=== PATIENT | male | born 1945 | race Caucasian/White ===

== ENCOUNTER 2019-10-28 14:08 | Inpatient (IN) | payer MEDICARE, SELFPAY ==
[2019-10-28] VITALS (26 sets, daily range): BP systolic 41–121; BP diastolic 22–76; PULSE 59–99; RESP 14–24; TEMP 33.3–36.4; O2SAT 91–100; BMI 27.9
--- NOTE | ~2019-10-28 | CT_ITS ---
EXAMINATION: CT brain wo con DATE: 10/29/2019 03:27 INDICATION: Altered mental status TECHNIQUE: Computed tomography (CT) of the head was performed without intravenous contrast. The dose- length product was 681.00 mGy-cm. The mA was adjusted according to patient size. Iterative reconstruc tion technique was employed. COMPARISON: None FINDINGS: There are scattered moderate periventricular and subcortical white matter changes, most lik kaveh related to small vessel ischemic disease (microangiopathy). Generalized atrophy. Intracranial ath erosclerosis. No acute intracranial hemorrhage, infarction, mass or mass effect. No ventriculomegaly or midline shift. Basilar cisterns are patent. Mild mucosal thickening of the ethmoid sinuses. Mastoi ds are pneumatized. No depressed skull fractures. IMPRESSION: 1. No acute intracranial abnormality. Reviewed, dictated and finalized at location B.
--- NOTE | ~2019-10-28 | XR_ITS ---
EXAMINATION: XR chest 1V portable DATE: 10/29/2019 06:05 INDICATION: Respiratory failure TECHNIQUE: frontal view of the chest was obtained. COMPARISON: Chest radiograph dated 10/28/[address] dated 10/29/2019 FINDINGS: Endotracheal tube tip 4.6 cm above the melani. Nasogastric tube extends below the left hemidiaphragm with distal tip collimated off the study. Right internal jugular central venous catheter with distal tip near the superior cavoatrial junction. Opacities in the bilateral mid and lower lung zones including small pleural effusions loculated along the left major fissure. There is also a small left pleural effusion. No pneumothorax. Cardiomegaly. Median sternotomy wires and mediastinal surgical clips are seen, likely from prior coronary artery by pass grafting. Suggestion of cardiac valve repair is likely aortic and tricuspid. Retained epicardial pacemaker leads projecting over the left hemidiaphragm. IMPRESSION: 1. No significant interval change in opacities in the lower lung zones consistent with atelectasis an d/or pneumonia. 2. Small bilateral pleural effusions including loculated component along the right minor fissure. 3. Cardiomegaly. Reviewed, dictated and finalized at location A. IMPRESSION: 1. No significant interval change in opacities in the lower lung zones consiste nt with atelectasis and/or pneumonia. 2. Small bilateral pleural effusions including loculated component along the ri ght minor fissure. 3. Cardiomegaly.
--- NOTE | ~2019-10-28 | XR_ITS ---
XR chest 1V portable DATE: 10/28/2019 14:58 INDICATION: Altered mental state. Cerebrovascular accident symptoms. TECHNIQUE: Portable AP chest views on 10/28/2019 at 1454 hours COMPARISON: None FINDINGS: Status post sternotomy and cardiac valve replacement. There is a globular enlarged cardiac silhouette which may be secondary to cardiomyopathy/cardiomegaly. Pericardial effusion is not entirel y excluded. There is aortic arch calcification. There is pulmonary vascular congestion and redistribution. There is a biconvex opacity overlying the right mid lung which may represent pseudotumor from fluid in the minor fissure versus some atelectasi s or consolidation. Pulmonary mass lesion at this site is not likely. There are mild infiltrate centr ally and in the lower lung zones, greatest in the right lower lung. Diffuse osteopenia. IMPRESSION: Cardiomegaly, pulmonary vascular congestion, right pleural fluid consistent with congesti ve heart failure Bilateral infiltrates may be due to to pulmonary edema, pneumonia and/or aspiration Reviewed, dictated and finalized at location A. IMPRESSION: Cardiomegaly, pulmonary vascular congestion, right pleural fluid co nsistent with congestive heart failure Bilateral infiltrates may be due to to pulmonary edema, pneumonia and/or aspira tion
--- NOTE | ~2019-10-28 | CT_ITS ---
EXAMINATION: CT chest wo con DATE: 10/29/2019 03:27 INDICATION: Respiratory failure TECHNIQUE: Computed tomography (CT) of the chest was performed without intravenous contrast. The dose -length product was 629.93 mGy-cm. Automated exposure control and iterative reconstruction technique were employed. COMPARISON: Chest dated 10/28/2019 FINDINGS: Bilateral lower lobe airspace consolidation with air bronchograms. Small pleural effusions. Moderate cardiomegaly. Endotracheal tube present. Status post median sternotomy for CABG. There is a scending thoracic aortic aneurysm measuring 5.3 cm at the aortic root. There is dehiscence of the larisa rnum with associated soft tissue thickening, likely postoperative, although infection is not excluded . Mediastinal lymphadenopathy, nonspecific. Enlarged pulmonary arteries, consistent with pulmonary ar terial hypertension. Nodular liver surface, compatible with cirrhosis. No pneumothorax. NG tube in th e stomach. Right central venous catheter tip in the SVC. Fluid density anterior abdominal wall incomp letely visualized, image 127. IMPRESSION: 1. Bilateral lower lobe airspace consolidation which may represent pneumonia and/or atelectasis. 2: Small pleural effusions. 3: Moderate cardiomegaly. 4: Mediastinal and hilar lymphadenopathy, nonspecific. 5: Nodular liver surface, consistent with cirrhosis. Small amount of ascites. 6: Ascending thoracic aortic aneurysm. Reviewed, dictated and finalized at location B. IMPRESSION: 1. Bilateral lower lobe airspace consolidation which may represent pneumonia an d/or atelectasis. 2: Small pleural effusions. 3: Moderate cardiomegaly. 4: Mediastinal and hilar lymphadenopathy, nonspecific. 5: Nodular liver surface, consistent with cirrhosis. Small amount of ascites. 6: Ascending thoracic aortic aneurysm.
--- NOTE | ~2019-10-28 | XR_ITS ---
EXAMINATION: XR chest port-a-cath/central DATE: 10/28/2019 16:30 INDICATION: Central line placement. TECHNIQUE: A single frontal view of the chest was obtained. COMPARISON: Chest single view 10/28/2019 at 2:50 PM FINDINGS: The lateral costophrenic angles are excluded. There are airspace opacities in right midlung zone. No pneumothorax. Cardiomegaly is noted. There are changes of heart valve replacement. A right internal jugular central venous catheter is seen with tip at the superior cavoatrial junction. IMPRESSION: 1. Central line tip at superior cavoatrial junction. 2. Stable airspace opacities in right midlung zone, which may be pneumonia, atelectasis/scarring, or pleural effusion in the minor fissure. 3. Cardiomegaly. Reviewed, dictated and finalized at location A. IMPRESSION: 1. Central line tip at superior cavoatrial junction. 2. Stable airspace opacities in right midlung zone, which may be pneumonia, ate lectasis/scarring, or pleural effusion in the minor fissure. 3. Cardiomegaly.
--- NOTE | 2019-10-28 14:14 | ECG_ITS ---
Measurements Intervals [place] Rate: 47 P: MO: 0 QRS: -42 QRSD: 150 T: 93 QT: 531 QTc: 473 Interpretive Statements ATRIAL FIBRILLATION WITH SLOW VENTRICULAR RESPONSE LEFT AXIS DEVIATION LEFT BUNDLE BRANCH BLOCK BASELINE ARTIFACT- II, III, AVR, AVL, AVF, V1, V5 ABNORMAL ECG Electronically Signed On 10-28-2019 15:01:10 CDT by Cheko Kaminski D.O.
--- NOTE | 2019-10-28 14:16 | ED.NEUROSD ---
HPI - Neuro Symptoms/Deficit General Chief Complaint: Suspected CVA Stated Complaint: cva symptoms Time Seen by Provider: 10/28/19 14:14 History of Present Illness HPI Narrative: BIBEMS from home for suspected stroke. He was reportedly c/o pain throughout his entire body this morning. then decided to lie down on the ground and would not get up. EMS was called. When they arrived he was noted to be confused and hypotensive. His reports recent h/o pneumonia, Previous gi bleed suspected to be upper. She is not aware of him having any dark or grossly blood stools. Related Data Home Medications Medication Instructions Recorded Confirmed Lorcet (hydrocodone) cap/day PO Q2-6H PRN 10/28/19 allopurinol 300 mg PO DAILY 10/28/19 carvedilol 25 mg PO BID 10/28/19 furosemide [Lasix] 180 mg PO DAILY 10/28/19 glimepiride 1 mg PO DAILY 10/28/19 hydralazine 50 mg PO TID 10/28/19 isosorbide mononitrate 30 mg PO DAILY 10/28/19 tamsulosin 0.4 mg PO DAILY 10/28/19 10/28/19 trazodone 50 mg PO DAILY 10/28/19 10/28/19 Allergies Allergy/AdvReac Type Severity Reaction Status Date / Time gabapentin Allergy Itching Verified 10/28/19 15:29 zolpidem [From Ambien] Allergy Itching Verified 10/28/19 15:29 Review of Systems Review of Systems: ROS unobtainable: Yes unobtainable due to medical condition and unobtainable due to mental status PMFSH Past Medical History Medical History GI bleed Pneumonia Surgical History Surgical History Hx of CABG Social History Social History (Updated 10/28/19 @ 17:35 by Mikael Ferraro MD) Living arrangements: with family Exam Const: General: ill appearing acutely and chronically Nutritional Appearance: well nourished Limitations: altered mental status Other: moderate distress, oriented to self HENMT: Mouth: Yes dry mucous membranes Eyes: Pupils: Equal, round and reactive pupils present Neck: Neck: normal visual inspection Resp: Auscultation: crackles on the left Cardio: Rhythm: abnormal rhythm irregularly irregular GI: GI Palp: Yes Soft to palpation and No Tenderness to palpation present (GI) Rectal Exam: Abnormal stool present (light colored diarrheal stool) and heme positive stool Skin: General skin exam: normal color Neuro: General: moves all extremities Other: somnolent Extrem: General: no edema Course Reevaluation(s) Reevaluation #1: Prior to going to the ICU his respiration became labored with loud gurgling. Intubation was discussed with his and she was in agreement. Date: 10/28/19 Time: 18:29 Vital Signs Vital signs: Vital Signs Temperature 33.3 C L 10/28/19 14:06 Pulse Rate 64 10/28/19 14:06 Respiratory Rate 18 10/28/19 14:06 Blood Pressure 94/76 L 10/28/19 14:06 Pulse Oximetry 95 10/28/19 14:06 Temperature 34.4 C L 10/28/19 17:49 Pulse Rate 84 10/28/19 17:49 Respiratory Rate 20 10/28/19 17:49 Blood Pressure 92/43 L 10/28/19 17:49 Pulse Oximetry 93 10/28/19 17:49 Procedures Central Line Placement Right IJ: Central Line Date: 10/28/19 Discussed w/ the patient/family/POA,the placement of a central venous catheter, including its clinical necessity/indication & associated potential risks, benifits and alternatives.: Yes The patient/family/POA understand(s) and acknowledge(s) the need to proceed with central venous catheter insertion as an important element of the patient's clinical management.: Yes Time Out Performed: Yes Patient Placed on Monitor/Pulse Ox: Yes Max. Sterile Barrier Technique: Caps, large sterile sheet and hand hygiene Central Line Prep: 2% chlorhexidine scrub and sterile drapes applied Technique: US-Guided Local Anesthetic: lidocaine 1% Amount of anesthesia used (mL): 3 Ultrasound Used for Placement: Yes Central Line Roslyn
[2019-10-28] MEDS: NALOXONE HCL 0.4 MG/ML VIAL IV PUSH (14:24)
[2019-10-28 14:42] LABS: Hematocrit 21.9 % (42.0-52.0); Immature Platelet Fraction Pct 5.4 % (0.9-11.2); Mean Corpuscular HGB Conc 31.5 g/dl (32-36); Mean Corpuscular Hemoglobin 30.8 pg (26-34); Mean Corpuscular Volume 97.8 fl (80-100); Mean Platelet Volume 11.4 fl (7.4-10.4); Platelet Count Result 66 k/mm3 (150-375); Red Blood Count 2.24 M/mm3 (4.6-6.20); Red Cell Distribution Width 16.9 % (11.5-14.5)
[2019-10-28 14:51] LABS: INR 3.8; Prothrombin Time 36.6 Seconds (11.1-14.7)
[2019-10-28 14:52] LABS: Lactic Acid Reflex 3.5 mmol/L (0.7-2.1); Partial Thromboplastin Time 54.4 SECONDS (22.3-36.8)
[2019-10-28 14:57] LABS: Albumin Level 3.1 g/dL (3.5-5.1); Alkaline Phosphatase 68 U/L (38-126); Aspartate Amino Transferase 33 U/L (17-59); Bilirubin,Total 1.3 mg/dL (0.2-1.3); Blood Urea Nitrogen 94 mg/dL (9-20); CRP 7.7 mg/dL (<1.0); Calcium 8.5 mg/dL (8.4-10.2); Carbon Dioxide 23 mmol/L (22-30); Chloride 105 mmol/L (98-107); Estimated CRCL calculation 28 ml/min; Estimated Glomerular Filt Rate 26; Glucose 105 mg/dL (75-110); Potassium 3.5 mmol/L (3.4-5.0); Sodium 138 mmol/L (137-145)
[2019-10-28] MEDS: SODIUM CHLORIDE 0.9% IV 2,000 ML 999 ML (15:04)
[2019-10-28] MEDS: SODIUM CHLORIDE 0.9% IV 1,000 ML 999 ML IV CONT (15:04)
[2019-10-28 15:05] LABS: Hemoglobin 6.9 g/dL (14.0-18.0); Troponin I 0.092 ng/mL (0.000-0.034); White Blood Count 1.3 K/mm3 (4.5-10.0)
[2019-10-28 15:14] LABS: Anisocytosis 3+ (NORMAL); Band Neutrophils Percent 18 % (0-6); Monocytes Absolute Manual 0.02 K/mm3 (0.1-0.90); Monocytes Percent Manual 2 % (3-9); Neutrophils Absolute Manual 1.06 K/mm3 (1.3-6.7); Neutrophils Percent Manual 64 % (46-73); Nucleated Red Blood Cells 1 %; Platelet Estimate Decreased (Adequate); Total Cells Counted 50
[2019-10-28 15:15] LABS: Hypochromasia 1+ (NORMAL)
[2019-10-28 15:27] LABS: Alanine Aminotransferase 16 U/L (4-50)
[2019-10-28 15:29] LABS: Add Urine Microscopic? YES; Amorphous Sediment Urine Few; Appearance Urine Clear (Clear); Bacteria Urine Trace /hpf; Bilirubin Urine Negative (Negative); Blood Urine Negative (Negative); Color Urine Yellow (Yellow); Glucose Urine UA Negative (Negative); Ketones Urine Negative (Negative); Leukocyte Esterase Ur 3+ LEU/UL (Negative); Nitrate Urine Positive (Negative); Protein Urine Negative (Negative); RBC Urine 0-2 /hpf (0-2); Specific Grav Ur 1.011 (1.001-1.035); Urobilinogen Urine Negative mg/dL (<2.0)
[2019-10-28 16:30] LABS: Free T4 Free Thyroxine Reflex 1.06 ng/dL (0.78-2.19)
[2019-10-28] MEDS: PANTOPRAZOLE SODIUM IV 40 MG VIAL IV PUSH (16:32)
[2019-10-28 16:41] LABS: Base Excess ABG -4.5 mEq/l (+/-2.0); Fractional Inspired Oxygen 28 %; HCO3 ABG 19.7 mEq/l (22.0-26.0); Oxygen Content ABG 8.9 %vol (16.0-22.0); Oxygen Saturation ABG 91.2 % (95.0-100.0); Oxyhemoglobin 88.7 % THb (90.0-100.0); PCO2 ABG 31.8 mmHg (35.0-45.0); PO2 ABG 59.1 mmHg (80.0-100.0); PO2 FiO2 Ratio Arterial Blood 2.11 %; pH ABG 7.409 (7.350-7.450)
[2019-10-28 16:42] LABS: Device NASAL CANNULA; Modified Allen's Test Pass; Site Drawn RIGHT RADIAL; Total Hemoglobin 7.1 g/dL (12.0-18.0)
[2019-10-28] MEDS: NOREPINEPHRINE 8 MG/D5W 250 ML 8 MG/250 ML BAG 9.4 MG IV CONT (16:42)
[2019-10-28] MEDS: DOPamine 400 MG/D5W 250 ML 400 MG/250 ML BAG IV CONT (17:06)
[2019-10-28] MEDS: SODIUM CHLORIDE 0.9% IV 500 ML ×2 (17:10→18:34)
[2019-10-28 17:23] LABS: Glucose Point of Care 107 (65-105)
[2019-10-28 17:38] LABS: Reflex Lactic Acid Yes or No Add Lactic
[2019-10-28 18:07] LABS: Lactic Acid 4.5 mmol/L (0.7-2.1)
[2019-10-28] MEDS: TUBING, BLOOD SET 1 EACH XX (18:33)
--- NOTE | 2019-10-28 18:37 | PC.NURSE ---
1815 50 mg rocuronium and 100 mg ketamine given for intubation. erp in to do intubation. patient intubated . ng tube placed in left nare and attached to suction. 100 cc green fluid returned
--- NOTE | 2019-10-28 19:25 | ADMGEN ---
This patient, Alton Rock, was admitted to Intensive Care Unit-3. Patient/family oriented to hospital policies and general routines including ID bracelet, bed and alarms, visiting hours, pain management, procedures, bathroom and other care routines, personal items, smoking policy, room service/diet, and visiting hours. Valuables list has been completed. Information on how to activate the Rapid Response Team has been discussed. Patient/Family are encouraged to report perceived risks to care and to ask questions if they do not understand what they are told or what they should do.
[2019-10-28] MEDS: DOPamine 400 MG/D5W 250 ML 400 MG/250 ML BAG 37.5 MG IV CONT (20:20)
--- NOTE | 2019-10-28 20:27 | PM.IMHP ---
H&P: HPI History of Present Illness Chief complaint: Septic shock, gi bleed, anemia, encephalopathy Narrative: Alton Rock is a 73 year old male who was brought in from home for suspected stroke. The patient had reported that he had pain throughout his whole body. He decided to lay down on the ground what get up. The patient was very confused and hypotensive when he arrived. It was reported that the patient a recent history of pneumonia. Had a previous GI bleed suspected to be upper GI bleed. The was not aware that the patient was losing blood through the GI tract. White count is noted to be 1.3. His hemoglobin 6.9. Hematocrit 21.9. It was reported that his stool was positive for Hemoccult blood. GI has been consulted per ED physician. The vector control assistant had been consulted per ED physician. A central line was placed due to patient's blood pressure being low. He was started on dopamine and Levophed. He was also given Solu-Medrol IV Protonix and vancomycin. 2 units of packed red blood cells was ordered but the patient has antibodies. The patient was noted to have grunting gas being respirations and then was intubated. Patient was placed on the ventilator. Vent settings per vector control assistant and patient remains hypotensive. As cardiomegaly, pulmonary vascular congestion, right pleural fluid consistent with congestive heart failure. Bilateral infiltrates may be due to pulmonary edema pneumonia or aspiration. Date of service 10/28/2019 Review of Systems Review of Systems: ROS unobtainable: Yes unobtainable due to endotracheal tube Constitutional: Constitutional: Reports as per HPI and Reports no additional constitutional complaints Eyes: Eyes: Reports as per HPI and Reports no additional eye complaints ENT: Reports system reviewed and no additional complaints, except as documented and Reports Normal hearing present Cardiovascular: Cardiovascular: Reports no additional cardiovascular complaints Respiratory: Respiratory: Reports no additional respiratory complaints and Reports no additional respiratory complaints Gastrointestinal: Gastrointestinal: Reports as per HPI and Reports no additional gastrointestinal complaints Musculoskeletal: Musculoskeletal: Reports no additional musculoskeletal complaints Integumentary/Breasts: Skin/Breast: Reports system reviewed and no additional complaints, except as docu and Reports as per HPI Neurologic: Reports system reviewed and no additional complaints, except as documented, Reports as per HPI and Reports Normal hearing present Psychiatric: Psychiatric: Reports no additional psychiatric complaints and Reports as per HPI Endocrine: Endocrine: Reports no additional endocrine complaints Hematologic/Lymphatic: Hematologic/Lymphatic: Reports no additional hematologic/lymphatic complaints Allergic/Immunologic: Allergic/Immunologic: Reports no additional allergic/immunologic complaints [facility] Past Medical History Medical History (Updated 10/28/19 @ 20:41 by Emily Cheung NP) BPH (benign prostatic hyperplasia) DM2 (diabetes mellitus, type 2) GI bleed Gout Hypertension Pneumonia Surgical History Surgical History Hx of CABG Family History Family History (Updated 10/28/19 @ 20:42 by Emily Cheung NP) Unknown Family history unknown Social History Social History (Updated 10/28/19 @ 20:44 by Emily Cheung NP) Social History: Patient lives with his ,is currently a full code. I attempted to call Kaia his 3 times and was not able to get an answer. The patient is vented and unable to respond to me. I am unable to retrieve information from the records and the patient is unable to respond. Smoking status: Smoker, status unknown Alcohol intake: unknown Substance use: unknown Living arrangements: with family Meds Home Medications and Allergies Home Medications Medication Instructions Re
[2019-10-28 20:56] LABS: Hematocrit 25.7 % (42.0-52.0); Hemoglobin 8.1 g/dL (14.0-18.0); Immature Platelet Fraction Pct 8.8 % (0.9-11.2); Mean Corpuscular HGB Conc 31.5 g/dl (32-36); Mean Corpuscular Hemoglobin 30.1 pg (26-34); Mean Corpuscular Volume 95.5 fl (80-100); Mean Platelet Volume 12.8 fl (7.4-10.4); Platelet Count Result 56 k/mm3 (150-375); Red Blood Count 2.69 M/mm3 (4.6-6.20); Red Cell Distribution Width 17.7 % (11.5-14.5)
[2019-10-28 20:57] LABS: Alveolar/Arterial O2 Gradient 519.9 mmHg; Base Excess ABG -6.4 mEq/l (+/-2.0); Carboxyhemoglobin 0.3 % THb (0-2.0); Fractional Inspired Oxygen 100 %; Methemoglobin ABG 0.6 %THb (0-1.5); Oxygen Content ABG 12.3 %vol (16.0-22.0); Oxygen Saturation ABG 98.2 % (95.0-100.0); Oxyhemoglobin 96.9 % THb (90.0-100.0); PO2 ABG 143.7 mmHg (80.0-100.0); PO2 FiO2 Ratio Arterial Blood 1.44 %; Reduced Hemoglobin 2.2 %THb (0-5.0); Total Hemoglobin 8.8 g/dL (12.0-18.0); pH ABG 7.178 (7.350-7.450)
[2019-10-28 20:58] LABS: Device VENTILATOR; PCO2 ABG 60.5 mmHg (35.0-45.0); Site Drawn RIGHT BRACHIAL
[2019-10-28 20:59] LABS: Arterial Blood Gas PEEP 5 cmH2O; Arterial Blood Gas Tidal Volume 400 ml; Arterial Blood Gas Vent Mode CMV; Arterial Blood Gas Ventilator rate 12 /MIN
[2019-10-28 21:06] LABS: Blood Urea Nitrogen 86 mg/dL (9-20); Calcium 8.3 mg/dL (8.4-10.2); Carbon Dioxide 23 mmol/L (22-30); Chloride 105 mmol/L (98-107); Estimated CRCL calculation 26 ml/min; Estimated Glomerular Filt Rate 23; Glucose 53 mg/dL (75-110); Magnesium 1.9 mg/dL (1.6-2.3); Sodium 138 mmol/L (137-145)
[2019-10-28 21:16] LABS: Troponin I 0.177 ng/mL (0.000-0.034)
[2019-10-28] MEDS: DEXTROSE 50% 25 GM/50 ML SYRINGE IV PUSH (21:26)
[2019-10-28] MEDS: HYDROCORTISONE SODIUM SUCCINATE 100 MG/2 ML VIAL IV PUSH (21:32)
[2019-10-28] MEDS: VASOPRESSIN INJ 100 UNITS in DEXTROSE 5% 95 ML IV CONT (21:33)
[2019-10-28] MEDS: PHYTONADIONE ADULT INJ 10 MG in DEXTROSE 5% IN WATER 50 ML 100 MG IVPB (21:51)
[2019-10-28 22:35] LABS: Glucose Point of Care 96 (65-105)
[2019-10-28 23:00] LABS: Alveolar/Arterial O2 Gradient 470.4 mmHg; Base Excess ABG -8.7 mEq/l (+/-2.0); Carboxyhemoglobin 0.3 % THb (0-2.0); Fractional Inspired Oxygen 80 %; HCO3 ABG 17.7 mEq/l (22.0-26.0); Methemoglobin ABG 0.6 %THb (0-1.5); Oxygen Content ABG 11.8 %vol (16.0-22.0); Oxygen Saturation ABG 90.5 % (95.0-100.0); Oxyhemoglobin 89.6 % THb (90.0-100.0); PCO2 ABG 39.8 mmHg (35.0-45.0); PO2 ABG 66.4 mmHg (80.0-100.0); PO2 FiO2 Ratio Arterial Blood 0.83 %; Reduced Hemoglobin 9.5 %THb (0-5.0); Total Hemoglobin 9.3 g/dL (12.0-18.0)
[2019-10-28 23:03] LABS: Device VENTILATOR; Site Drawn RIGHT BRACHIAL; pH ABG 7.265 (7.350-7.450)
[2019-10-28 23:04] LABS: Arterial Blood Gas PEEP 5 cmH2O; Arterial Blood Gas Tidal Volume 400 ml; Arterial Blood Gas Vent Mode CMV; Arterial Blood Gas Ventilator rate 24 /MIN
[2019-10-28 23:13] LABS: Troponin I 0.258 ng/mL (0.000-0.034)
[2019-10-28] MEDS: NOREPINEPHRINE 8 MG/D5W 250 ML 8 MG/250 ML BAG 56.3 MG IV CONT (23:21)
[2019-10-28 23:45] LABS: Lactic Acid Reflex 4.1 mmol/L (0.7-2.1)
[2019-10-29] VITALS (59 sets, daily range): BP systolic 63–115; BP diastolic 46–72; PULSE 84–132; RESP 22–35; TEMP 36.7–37.6; O2SAT 99–100
--- NOTE | 2019-10-29 | ECHO_ITS ---
Patient Info Name: Alton Rock Age: 73 years : 1945 Gender: Male Ht: 71 in Wt: 205 lbs BSA: 2.18 m2 HR: 100 bpm BP: 63 / 46 mmHg Heart Rhythm: Atrial Fibrillation, Tachycardia Technical Quality: Good Exam Date: 10/29/2019 8:49 AM Exam Location: [facility] Patient Status: Inpatient Admit Date: 10/28/2019 Staff Ordering Physician: Danial Augustin MD Technical Staff Assistant: Harry Weber RDCS Attending Provider: Good Srivastava MD Exam Type: CA echo doppler color flow Study Info Indications R65.21 - Severe sepsis with septic shock Complete two-dimensional, color flow and Doppler transthoracic echocardiogram is performed. History/Risk Factors Septic shock; redo AVR and TV Ring, respiratory failure, HoTN,. Summary 1. Left ventricular chamber dimension is mildly enlarged. 2. Left ventricular systolic function is severely reduced, estimated at 30-35%. 3. Right ventricular chamber dimension is moderately enlarged. 4. Right ventricular systolic function is moderately reduced. 5. Left atrial chamber dimension is moderately enlarged. 6. Right atrial chamber dimension is moderately enlarged. 7. Well seated normally functioning mechanical prosthetic noted in the aortic position ([employer]). Peak velocity across aortic prosthesis 1.6 m/s. Mean pressure gradient 5.5. 8. The mitral valve has thickened calcified leaflets. Moderate mitral annular calcification is also noted. . 9. There is mild mitral valve regurgitation. 10. Tricuspid valve annuloplasty ring noted. There is Mild tricuspid regurgitation. 11. Inferior vena cava is dilated and does not collapse with inspiration (patient is intubated). 12. The aortic root not well visualized but appears heavily calcified vs aortic graft in place. measures 4.5 cm at sinus of valsalva. Left Ventricle Left ventricular chamber dimension is mildly enlarged. Left ventricular systolic function is severely reduced, estimated at 30-35%. There is mildly increased left ventricular wall thickness. The left ventricular diastolic function is indeterminate due to underlying A fib and significant MAC. Right Ventricle Right ventricular chamber dimension is moderately enlarged. Right ventricular systolic function is moderately reduced. Left Atria Left atrial chamber dimension is moderately enlarged. Right Atria Right atrial chamber dimension is moderately enlarged. Aortic Valve Well seated normally functioning mechanical prosthetic noted in the aortic position ([employer]). Peak velocity across aortic prosthesis 1.6 m/s. Mean pressure gradient 5.5. Pulmonic Valve Pulmonic valve not well visualized. Mitral Valve The mitral valve has thickened calcified leaflets. Moderate mitral annular calcification is also noted. . There is no mitral valve stenosis. There is mild mitral valve regurgitation. Tricuspid Valve Tricuspid valve annuloplasty ring noted. There is Mild tricuspid regurgitation. RVSP 25 mmHg + RA pressure. Pericardium/Pleural The pericardium appears normal. There is no pericardial effusion. Inferior Vena Cava Inferior vena cava is dilated and does not collapse with inspiration (patient is intubated). Aorta The aortic root not well visualized but appears heavily calcified vs aortic graft in place. measures 4.5 cm at sinus of valsalva. Left Ventricular Outflow Tract Name Value Normal
[2019-10-29 01:05] LABS: Glucose Point of Care 89 (65-105)
[2019-10-29] MEDS: DOPamine 400 MG/D5W 250 ML 400 MG/250 ML BAG 17 MG IV CONT (02:10)
[2019-10-29] MEDS: NOREPINEPHRINE 8 MG/D5W 250 ML 8 MG/250 ML BAG 56.3 MG IV CONT ×4 (03:44→15:03)
[2019-10-29] MEDS: PANTOPRAZOLE SODIUM IV 40 MG VIAL IV PUSH ×2 (05:18→15:02)
[2019-10-29] MEDS: HYDROCORTISONE SODIUM SUCCINATE 100 MG/2 ML VIAL IV PUSH ×2 (05:19→13:12)
[2019-10-29 05:37] LABS: Hematocrit 27.9 % (42.0-52.0); Immature Platelet Fraction Pct 9.9 % (0.9-11.2); Mean Corpuscular HGB Conc 32.3 g/dl (32-36); Mean Corpuscular Hemoglobin 30.3 pg (26-34); Mean Corpuscular Volume 93.9 fl (80-100); Mean Platelet Volume 12.9 fl (7.4-10.4); Platelet Count Result 61 k/mm3 (150-375); Red Blood Count 2.97 M/mm3 (4.6-6.20); Red Cell Distribution Width 18.1 % (11.5-14.5); White Blood Count 3.2 K/mm3 (4.5-10.0)
[2019-10-29 05:45] LABS: INR 3.1; Prothrombin Time 31.6 Seconds (11.1-14.7)
[2019-10-29 05:46] LABS: Partial Thromboplastin Time 48.1 SECONDS (22.3-36.8)
[2019-10-29 05:58] LABS: Lactic Acid Reflex 5.7 mmol/L (0.7-2.1)
[2019-10-29 06:00] LABS: Alanine Aminotransferase 21 U/L (4-50); Albumin Level 3.4 g/dL (3.5-5.1); Alkaline Phosphatase 64 U/L (38-126); Aspartate Amino Transferase 48 U/L (17-59); Bilirubin,Total 2.1 mg/dL (0.2-1.3); Blood Urea Nitrogen 88 mg/dL (9-20); Calcium 8.5 mg/dL (8.4-10.2); Carbon Dioxide 18 mmol/L (22-30); Chloride 104 mmol/L (98-107); Estimated CRCL calculation 24 ml/min; Estimated Glomerular Filt Rate 22; Glucose 85 mg/dL (75-110); Magnesium 1.7 mg/dL (1.6-2.3); Potassium 3.8 mmol/L (3.4-5.0); Sodium 138 mmol/L (137-145)
[2019-10-29] MEDS: SODIUM BICARBONATE 8.4% 50 MEQ/50 ML VIAL 100 MEQ IV PUSH ×2 (06:49→16:47)
[2019-10-29] MEDS: SODIUM CHLORIDE 0.9% IV 500 ML IV CONT (06:49)
[2019-10-29] MEDS: MAGNESIUM SULF 1 GM/D5W 100 ML 1 GM/100 ML BAG IVPB (07:00)
[2019-10-29 07:43] LABS: Base Excess ABG -4.5 mEq/l (+/-2.0); HCO3 ABG 20.3 mEq/l (22.0-26.0); Oxygen Saturation ABG 99.3 % (95.0-100.0); PO2 ABG 199.6 mmHg (80.0-100.0); Total Hemoglobin 9.9 g/dL (12.0-18.0); pH ABG 7.369 (7.350-7.450)
[2019-10-29 07:44] LABS: Carboxyhemoglobin 0.3 % THb (0-2.0); Device VENTILATOR; Fractional Inspired Oxygen 80 %; Methemoglobin ABG 0.4 %THb (0-1.5); Modified Allen's Test Pass; Oxygen Content ABG 14.1 %vol (16.0-22.0); Reduced Hemoglobin 1.3 %THb (0-5.0); Site Drawn LEFT RADIAL
[2019-10-29 07:45] LABS: Arterial Blood Gas PEEP 8 cmH2O; Arterial Blood Gas Tidal Volume 400 ml; Arterial Blood Gas Vent Mode CMV; Arterial Blood Gas Ventilator rate 24 /MIN
--- NOTE | 2019-10-29 07:56 | PM.CNCAR ---
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 Waiting records from [facility]. His Hg is low but stable. INR reversed. Would hold coumadin for now He meets sepsis criteria with leukopenia and hypothermia. Pressers needs are increasing. Will arrange for transfer to [facility] for consideration of mechanical support. He can not get impella due to mechanical aortic valve. Consider [facility] heart. . (2) Valvular heart disease: Code(s): I38 - Endocarditis, valve unspecified Status: Acute Assessment and Plan: Hold Coumadin (3) Cardiomyopathy: Code(s): I42.9 - Cardiomyopathy, unspecified Status: Acute Assessment and Plan: EF 25%. Unkown coronary anatomy. LAD appears heavily calcified on CT chest. Waiting records from [place]. (4) Troponin level elevated: Code(s): R79.89 - Other specified abnormal findings of blood chemistry Status: Acute Assessment and Plan: Likely type II VT from increased demand. (5) A-fib: Code(s): I48.91 - Unspecified atrial fibrillation Status: Acute Assessment and Plan: Rate is acceptable. BB on hold. AC on hold History of Present Illness History of Present Illness Consult date/time: 10/29/19 07:56 73 y/o male with h/o HTN, DM, vavluar heart disease who presented with generalized weakness and hypotension Patient currently critically ill,intubated on multiple pressers. History per . According to her he had ball in cage valve (aortic position) 30+ years ago and earlier this year in Apr 2019 he underwent redo with mechanical aortic valve and repair of aortic aneurysm as well as tricuspid ring. He was at [facility] for 2 months then left to rehab. He has been weak since surgery but yesterday he was to weak to get off the bathroom and he tried to crawl back to bed but could not get up the floor neither could help him up so she called the ambulance. He was noted to be hypotensive, hypotherrmic and hypoxic with leukopenia. He was intubated and has been requiring multiple pressers (Levophed, Dopamine and Epi). Labs notable for lactic acidosis at 5.7, Creatinine of 2.8 with unknown baseline, anemia with Hg 6.9. His INR is 3.8. Trop is mildly elevated at 0.2. His admission EKG shows A fib with slow ventricular response. tele now shows A fib with HR ~110 while on multiple pressers Reason For Visit: Septic shock, gi bleed, anemia, encephalopathy Review of Systems Review of Systems: ROS unobtainable: Yes unobtainable due to endotracheal tube PMFSH Past Medical History Medical History BPH (benign prostatic hyperplasia) DM2 (diabetes mellitus, type 2) GI bleed Gout Hypertension Pneumonia Surgical History Surgical History Hx of CABG Family History Family History Unknown Family history unknown Sibling Prostate carcinoma Social History Social History Social History: Patient lives with his ,is currently a full code. I attempted to call Kaia his 3 times and was not able to get an answer. The patient is vented and unable to respond to me. I am unable to retrieve information from the records and the patient is unable to respond. Smoking status: Unknown if ever smoked Alcohol intake: unknown
[2019-10-29 08:30] LABS: Reflex Lactic Acid Yes or No Add Lactic
[2019-10-29] MEDS: SODIUM CHLORIDE 0.9% IV 1,000 ML 999 ML IV CONT (08:53)
--- NOTE | 2019-10-29 10:10 | WPDGICN ---
Assessment and Plan Assessment and plan (1) Pancytopenia: Code(s): D61.818 - Other pancytopenia Status: Acute Assessment and Plan: Patient is anemic but also has significant leukocytopenia and pancytopenia with thrombocytopenia patient has occult blood in stool but no signs of active GI blood loss. Plan is to keep patient empirically on proton pump inhibitor such as Protonix. Continue to monitor hemoglobin he use transfuse last evening will continue be monitored. Exact etiology of pancytopenia remains somewhat unclear. (2) Occult blood in stools: Code(s): R19.5 - Other fecal abnormalities Status: Acute Assessment and Plan: Patient has occult blood in stool now with concomitant anemia has previously had occult blood in stool. Etiology for occult blood loss unclear. Plan is to keep patient on proton pump inhibitor for possible ulcer disease. Given his significant comorbid diseases endoscopy will not be performed at this time unless active bleeding identified. We will follow with you well patient remains at our institution. Continue monitor hemoglobin closely patient will be main on a Protonix therapy at this time. (3) Valvular heart disease: Code(s): I38 - Endocarditis, valve unspecified Status: Acute Assessment and Plan: Patient has recent valvular heart surgery and aneurysm repair both aortic valve and tricuspid valves have been had surgery. Surgery is actively following the patient anticipate referral back to tertiary care center. (4) Shock: Code(s): R57.9 - Shock, unspecified Status: Acute Assessment and Plan: Patient remains intubated on multiple pressor agents at this time. Managed by the host/hostess service. (5) Encephalopathy: Code(s): G93.40 - Encephalopathy, unspecified Status: Acute GI Consult Note Consult date/time: 10/29/19 10:10 HPI: Al[place] Rock is a 73 year old male seen in evaluation at the request of the ER. I am asked to see the patient because of occult blood in stool and anemia. Patient has a distant history of aortic valve replacement he recently underwent a redo surgery with mechanical aortic valve as well as the tricuspid surgery at [facility] he is known to have atrial fibrillation is maintained on warfarin anticoagulation. Last evening he presented with generalized weakness hypotension and was taken to the emergency room where he was found to be critically ill respiratory distress and was intubated. Patient is unable to add any additional history at this time. He was found to be have occult blood in stool and pancytopenia. According to his he was previously been anemic and occult blood in stool was identified when hospitalized at [facility] during the time of his valve replacement. At present he has been maintained on Coumadin. No obvious active bleeding has been described. Patient is currently felt to be in shock as on multiple pressor agents followed by cardiology service was actively considering transfer back to tertiary care center. Review of Systems Review of Systems: ROS unobtainable: Yes unobtainable due to endotracheal tube PMFSH Past Medical History Medical History BPH (benign prostatic hyperplasia) DM2 (diabetes mellitus, type 2) GI bleed Gout Hypertension Pneumonia Surgical History Surgical History Hx of CABG Family History Family History Unknown Family history unknown Sibling Prostate carcinoma Social History Social History Social History: Patient lives with his ,is currently a full code. I attempted to call Kaia his 3 times and was not able to get an answer. The patient is vented and unable to respond to me. I am unable to retrieve information from the
[2019-10-29] MEDS: INSULIN ASPART (*BKC) 100 UNITS/ML SUB-Q (10:22)
[2019-10-29 10:32] LABS: Hematocrit 26.5 % (42.0-52.0); Hemoglobin 8.6 g/dL (14.0-18.0); Immature Platelet Fraction Pct 9.6 % (0.9-11.2); Mean Corpuscular HGB Conc 32.5 g/dl (32-36); Mean Corpuscular Hemoglobin 30.3 pg (26-34); Mean Corpuscular Volume 93.3 fl (80-100); Platelet Count Result 54 k/mm3 (150-375); Red Blood Count 2.84 M/mm3 (4.6-6.20); Red Cell Distribution Width 18.4 % (11.5-14.5); White Blood Count 4.5 K/mm3 (4.5-10.0)
--- NOTE | 2019-10-29 10:39 | WPDCNINT ---
Assessment and Plan Assessment and plan (1) Acute respiratory failure: Code(s): J96.00 - Acute respiratory failure, unspecified whether with hypoxia or hypercapnia Status: Acute Assessment and Plan: Acute Respiratory failure secondary to septic shock, pneumonia, encephalopathy Continue full mechanical ventilation support to prevent hypoxemia/hypercarbia and end organ damage. ABG and PCXR reviewed and will repeat in am. Low tidal volume ventilation strategy to prevent volutrauma Decrease FiO2 to 60%. Peep is at 8 On empiric broad-spectrum antibiotic CT Chest IMPRESSION: 1. Bilateral lower lobe airspace consolidation which may represent pneumonia and/or atelectasis. 2: Small pleural effusions. 3: Moderate cardiomegaly. 4: Mediastinal and hilar lymphadenopathy, nonspecific. 5: Nodular liver surface, consistent with cirrhosis. Small amount of ascites. 6: Ascending thoracic aortic aneurysm. (2) Suspected COVID-19 virus infection: Code(s): Z20.828 - Contact with and (suspected) exposure to other viral communicable diseases Status: Acute Assessment and Plan: COVID-19 suspected. SARS-CoV-2 PCR sent and results pending Patient is in Airborne, Droplet and Contact Isolation (3) Pancytopenia: Code(s): D61.818 - Other pancytopenia Status: Acute Assessment and Plan: Likely secondary to sepsis Status post transfusion of 1 unit PRBC Monitor and transfuse as needed (4) Cardiomyopathy: Code(s): I42.9 - Cardiomyopathy, unspecified Status: Acute Assessment and Plan: Severe cardiomyopathy with bi V failure On multiple vasopressors In AFib with relatively high ventricular rate precluding use of inotropes ECHO Summary 1. Left ventricular chamber dimension is mildly enlarged. 2. Left ventricular systolic function is severely reduced, estimated at 30-35%. 3. Right ventricular chamber dimension is moderately enlarged. 4. Right ventricular systolic function is moderately reduced. 5. Left atrial chamber dimension is moderately enlarged. 6. Right atrial chamber dimension is moderately enlarged. 7. Well seated normally functioning mechanical prosthetic noted in the aortic position ([facility] [employer]). Peak velocity across aortic prosthesis 1.6 m/s. Mean pressure gradient 5.5. 8. The mitral valve has thickened calcified leaflets. Moderate mitral annular calcification is also noted. . 9. There is mild mitral valve regurgitation. 10. Tricuspid valve annuloplasty ring noted. There is Mild tricuspid regurgitation. 11. Inferior vena cava is dilated and does not collapse with inspiration (patient is intubated). 12. The aortic root not well visualized but appears heavily calcified vs aortic graft in place. measures 4.5 cm at sinus of valsalva. (5) Valvular heart disease: Code(s): I38 - Endocarditis, valve unspecified Status: Acute Assessment and Plan: Patient is status post redo sternotomy mechanical AVR tricuspid valve band and ascending aortic aneurysm resection in April of 2019 at [facility] On Coumadin for anticoagulation which has been held Once INR decreases, will start heparin drip unless there is a contraindication See below (6) Shock: Code(s): R57.9 - Shock, unspecified Status: Acute Assessment and Plan: Mix shock sepsis and cardiogenic IVC dilated shows volume overloaded now Patient on multiple vasopressors Levophed vasopressin and epinephrine Continue titrate 25% albumin added to minimize 3rd spacing (7) Leg ulcer: Code(s): L97.909 - Non-pressure chronic ulcer of unspecified part of unspecified lower leg with unspecified severity Status: Acute Assessment and Plan: On broad-spectrum antibiotics Wound care consult (8) DM2 (diabetes mellitus, type 2): Code(s): E11.9 - Type 2 diabetes mellitus without complications Status: Chronic Assessment and Plan: Sliding scale insulin (9) Brendah
[2019-10-29 10:48] LABS: Lactic Acid 5.7 mmol/L (0.7-2.1)
[2019-10-29 10:59] LABS: Glucose Point of Care 217 (65-105)
[2019-10-29] MEDS: ALBUMIN HUMAN 25% 25 GM/100 ML 200 ML IVPB (13:12)
[2019-10-29] MEDS: DOPamine 400 MG/D5W 250 ML 400 MG/250 ML BAG 27.2 MG IV CONT (13:12)
[2019-10-29 14:35] LABS: SARS-CoV-2 RNA PCR Negative
[2019-10-29 15:45] LABS: Glucose Point of Care 197 (65-105)
--- NOTE | 2019-10-29 15:46 | PC.NURSE ---
[facility] transfer center updated with the patient's COVID test results at 1535.
[2019-10-29 16:02] LABS: Hematocrit 27.9 % (42.0-52.0); Immature Platelet Fraction Pct 10.4 % (0.9-11.2); Mean Corpuscular HGB Conc 32.3 g/dl (32-36); Mean Corpuscular Hemoglobin 30.2 pg (26-34); Mean Corpuscular Volume 93.6 fl (80-100); Platelet Count Result 66 k/mm3 (150-375); Red Blood Count 2.98 M/mm3 (4.6-6.20); Red Cell Distribution Width 18.8 % (11.5-14.5)
[2019-10-29 16:08] LABS: Alveolar/Arterial O2 Gradient 227.4 mmHg; Base Excess ABG -15.4 mEq/l (+/-2.0); Fractional Inspired Oxygen 60 %; HCO3 ABG 11.2 mEq/l (22.0-26.0); Oxygen Content ABG 14.3 %vol (16.0-22.0); Oxygen Saturation ABG 98.8 % (95.0-100.0); PCO2 ABG 28.7 mmHg (35.0-45.0); PO2 ABG 168.8 mmHg (80.0-100.0); PO2 FiO2 Ratio Arterial Blood 2.81 %; Total Hemoglobin 10.1 g/dL (12.0-18.0)
[2019-10-29 16:12] LABS: Device VENTILATOR; Modified Allen's Test Pass; Site Drawn LEFT RADIAL; pH ABG 7.208 (7.350-7.450)
[2019-10-29 16:14] LABS: Arterial Blood Gas Vent Mode CMV; Arterial Blood Gas Ventilator rate 24 /MIN
[2019-10-29 16:15] LABS: Arterial Blood Gas PEEP 8 cmH2O; Arterial Blood Gas Tidal Volume 400 ml
[2019-10-29 16:33] LABS: Blood Urea Nitrogen 81 mg/dL (9-20); Calcium 7.7 mg/dL (8.4-10.2); Carbon Dioxide 15 mmol/L (22-30); Chloride 94 mmol/L (98-107); Estimated CRCL calculation 25 ml/min; Estimated Glomerular Filt Rate 23; Glucose 288 mg/dL (75-110); Magnesium 1.8 mg/dL (1.6-2.3); Potassium 4.3 mmol/L (3.4-5.0); Sodium 129 mmol/L (137-145)
[2019-10-29] MEDS: CALCIUM CHLORIDE 1,000 MG/10 ML SYRINGE 1000 MG IV PUSH (16:47)
[2019-10-29 17:05] LABS: Glucose Point of Care 203 (65-105)
--- NOTE | 2019-10-29 18:04 | PM.IMPN ---
Progress Note: A&P Assessment and Plan (1) Septic shock: Code(s): A41.9 - Sepsis, unspecified organism; R65.21 - Severe sepsis with septic shock Status: Acute Assessment and Plan: Blood and urine cultures are pending. Patient was started on vancomycin, Zosyn and azithromycin. COVID testing is negative. Patient is on Levophed and dopamine drip. Report Analyst has been consulted. Possible UTI possible community-acquired pneumonia. at bedside this p.m. and discussed case and the severity of his illness (2) Encephalopathy: Code(s): G93.40 - Encephalopathy, unspecified Status: Acute Assessment and Plan: Metabolic encephalopathy. (3) DM2 (diabetes mellitus, type 2): Code(s): E11.9 - Type 2 diabetes mellitus without complications Status: Chronic Assessment and Plan: Accu-Cheks every 6 hours with sliding scale. (4) BPH (benign prostatic hyperplasia): Code(s): N40.0 - Benign prostatic hyperplasia without lower urinary tract symptoms Status: Chronic Assessment and Plan: Holding patient's tamsulosin at this time. (5) Gout: Code(s): M10.9 - Gout, unspecified Status: Chronic Assessment and Plan: Holding allopurinol at this time. (6) Hypertension: Code(s): I10 - Essential (primary) hypertension Status: Chronic Assessment and Plan: The patient is hypotensive and septic shock so his blood pressure medications are on hold at this time. . (7) Leg ulcer: Code(s): L97.909 - Non-pressure chronic ulcer of unspecified part of unspecified lower leg with unspecified severity Status: Acute Assessment and Plan: I did not consult wound care at this time as patient is critically ill. If the patient should survive this critical. Then who be feasible to have a wound care consult. (8) GI bleed: Qualifiers: GI bleed type/associated pathology: unspecified gastrointestinal hemorrhage type Qualified Code(s): K92.2 - Gastrointestinal hemorrhage, unspecified Code(s): K92.2 - Gastrointestinal hemorrhage, unspecified Status: Acute Assessment and Plan: Guaiac-positive stool but no active GI bleeding. Pancytopenia probably secondary to sepsis (9) Acute respiratory failure: Code(s): J96.00 - Acute respiratory failure, unspecified whether with hypoxia or hypercapnia Status: Acute Assessment and Plan: Secondary to sepsis and probable pneumonia mechanically ventilated Subjective Date/time seen: 10/29/19 18:04 Interval history: Date of visit 10/28. 73-year-old white male with known heart failure status post valvular replacement and aortic aneurysm repair earlier this year was stormy postop course admitted with altered mental status found to be septic with acute respiratory failure. Presently intubated mechanically ventilated and on pressors to try to maintain his pressure. Exam Narrative: Exam Narrative: Blood pressure 64/54 pulse 64 sat and 90% with FiO2 of 60% and 8 of PEEP Pupils fixed not reactive ET tube in place No carotid bruits Lungs some rhonchi upper airway sounds but no definite rales CV hear no murmur Abdomen soft nontender Extremities cool contracted right leg is ecchymotic looks to be possibly vascular insufficient with ulcerations and large hematoma on right thigh which has been chronic apparently Neuro not responsive but is sedated Objective Data Vital Signs Vital Signs: Vital Signs - 24 hr 10/28/19 18:05 10/28/19 18:06 10/28/19 18:25 Temperature 34.9 C L 34.9 C L Pulse Rate 78 78 91 Respiratory Rate 20 20 Blood Pressure 88/47 L 102/76 Pulse Oximetry 99 99 99 10/28/19 19:09 10/28/19 19:25 10/28/19 19:30 Temperature 34.9 C L Pulse Rate 78 80 78 Respiratory Rate 20 Blood Pressure 97/49 L 68/46 L Pulse Oximetry 100 99 10/28/19 19:45 10/28/19 20:00 10/28/19 21:07 Temperature 36.4 C 36.4 C Pulse Rate 80 77 81 Respiratory
--- NOTE | 2019-10-29 18:59 | PC.NURSE ---
Pt transfered to [place] via [employer] helicopter at 1900. Report given to Mary HENDERSON and patient going to [id number]. Dr. Holm accepted. Pt left with Epi gtt, vaso gtt, levo gtt, dopamine gtt. Patient was afebrile and vitals stable. informed and given number to [place].
[2019-10-29 19:16] LABS: Glucose Point of Care 159 (65-105)
--- NOTE | 2019-11-05 09:40 | PM.TDS ---
Transfer Discharge Sum: Prov Provider Date of admission: 10/28/19 16:26 Primary care physician: Leo Avery, MD Admitting clinician: Good Srivastava MD Consults: 10/28/19 Consult to Physician Routine Comment: Consulting Provider: Maxime Gramajo Reason for consultation: GI bleed Has provider been notified: Yes Consult to Physician Routine Comment: Consulting Provider: Danial Augustin scale attendant/MD group to consult: [employer] Reason for consultation: Sepsis Has provider been notified: Yes Consult to Physician Routine Comment: MESSAGE LEFT WITH THE EXCHANGE Consulting Provider: Alfa Borjas scale attendant/MD group to consult: cardiology Reason for consultation: elevated troponin Has provider been notified: Yes 10/29/19 Wound/ET Consult Routine Reason for Consult:: wounds to bilateral legs DS: Admitting Diagnosis Admitting Diagnosis Admitting Diagnosis: Sepsis, unspecified organism DS: Discharge Diagnosis Discharge Diagnosis (1) Septic shock: Code(s): A41.9 - Sepsis, unspecified organism; R65.21 - Severe sepsis with septic shock Status: Acute Assessment and Plan: Blood and urine cultures are pending. Patient was started on vancomycin, Zosyn and azithromycin. COVID testing is negative. Patient is on pressors. Possible UTI possible community-acquired pneumonia. at bedside this p.m at transfer. and discussed case and the severity of his illness (2) Encephalopathy: Code(s): G93.40 - Encephalopathy, unspecified Status: Acute Assessment and Plan: Metabolic encephalopathy. (3) DM2 (diabetes mellitus, type 2): Code(s): E11.9 - Type 2 diabetes mellitus without complications Status: Chronic Assessment and Plan: Accu-Cheks every 6 hours with sliding scale. (4) BPH (benign prostatic hyperplasia): Code(s): N40.0 - Benign prostatic hyperplasia without lower urinary tract symptoms Status: Chronic Assessment and Plan: Holding patient's tamsulosin at this time. (5) Gout: Code(s): M10.9 - Gout, unspecified Status: Chronic Assessment and Plan: Holding allopurinol at this time. (6) Hypertension: Code(s): I10 - Essential (primary) hypertension Status: Chronic Assessment and Plan: The patient is hypotensive and septic shock so his blood pressure medications are on hold at this time. . (7) Leg ulcer: Code(s): L97.909 - Non-pressure chronic ulcer of unspecified part of unspecified lower leg with unspecified severity Status: Acute Assessment and Plan: I did not consult wound care at this time as patient is critically ill. If the patient should survive this critical. Then who be feasible to have a wound care consult. (8) GI bleed: Qualifiers: GI bleed type/associated pathology: unspecified gastrointestinal hemorrhage type Qualified Code(s): K92.2 - Gastrointestinal hemorrhage, unspecified Code(s): K92.2 - Gastrointestinal hemorrhage, unspecified Status: Acute Assessment and Plan: Guaiac-positive stool but no active GI bleeding. Pancytopenia probably secondary to sepsis (9) Acute respiratory failure: Code(s): J96.00 - Acute respiratory failure, unspecified whether with hypoxia or hypercapnia Status: Acute Assessment and Plan: Secondary to sepsis and probable pneumonia mechanically ventilated (10) Cardiomyopathy: Code(s): I42.9 - Cardiomyopathy, unspecified Status: Acute Assessment and Plan: EF 30% with ascending thoracic anuerysm Transfer Discharge Sum: Med Medications Active and Home Medications: Home Medications allopurinol 300 mg PO DAILY 10/28/19 [History Confirmed 10/28/19] carvedilol 25 mg PO BID 10/28/19 [History Confirmed 10/28/19] cyanocobalamin (vitamin B-12) [Vitamin B-12] 2,000 mcg PO DAILY 10/28/19 [History Confirmed 10/28/19] furosemide [Lasix] 180 mg PO DAILY 07
== END 2019-10-29 19:00 | disposition short-term general hospital (02) | DRG 871 ==
LOC: ANHED 17:44 → ANHICU 18:07
PROVIDERS: Internal Medicine; Admitting Provider Internal Medicine; Emergency Provider Emergency Medicine; PCP Internal Medicine; Visit Provider Internal Medicine
DX: A41.9 Sepsis, unspecified organism (principal); R65.21 Severe sepsis with septic shock; J18.9 Pneumonia, unspecified organism; G93.41 Metabolic encephalopathy; J96.00 Acute respiratory failure, unspecified whether with hypoxia or hypercapnia; R57.0 Cardiogenic shock; N39.0 Urinary tract infection, site not specified; K92.2 Gastrointestinal hemorrhage, unspecified; D61.818 Other pancytopenia; I38 Endocarditis, valve unspecified; I42.9 Cardiomyopathy, unspecified; L97.909 Non-pressure chronic ulcer of unspecified part of unspecified lower leg with unspecified severity; Z20.828 Contact with and (suspected) exposure to other viral communicable diseases; I11.0 Hypertensive heart disease with heart failure; I50.9 Heart failure, unspecified; I71.2 Thoracic aortic aneurysm, without rupture; E11.9 Type 2 diabetes mellitus without complications; M1A.9XX0 Chronic gout, unspecified, without tophus (tophi); R19.5 Other fecal abnormalities; N40.0 Benign prostatic hyperplasia without lower urinary tract symptoms; Z95.1 Presence of aortocoronary bypass graft; Z95.2 Presence of prosthetic heart valve
CPT/HCPCS: 31500; 36415; 36430; 36556; 36600; 70450; 71045; 71250; 80048; 80053; 81001; 81479; 82375; 82805; 83050; 83605; 83735; 84439; 84443; 84480; 84484; 85025; 85027; 85055; 85610; 85730; 86140; 86850; 86860; 86870; 86880; 86900; 86901; 86902; 86905; 86920; 86922; 86971; 87040; 87077; 87086; 87088; 87186; 87635; 93005; 93306; 94002; 94003; 96361; 96374; 96375; 99291; C1751; C9113; C9803; J0171; J0456; J0696; J1265; J1720; J1815; J2250; J2310; J2543; J3010; J3370; J3430; J3475; J3480; J7030; J7040; J7060; P9016; P9047; U0003

== ENCOUNTER 2020-01-18 04:49 | Emergency (ER) | payer MEDICARE, SELFPAY ==
[2020-01-18 04:58] VITALS: BP 141/71; PULSE 94; RESP 19; TEMP 36.7; O2SAT 100
[2020-01-18] MEDS: LIDOCAINE HCL 2% GEL UROJET 10 ML PKG (05:26)
[2020-01-18 06:11] LABS: Add Urine Microscopic? YES; Appearance Urine Clear (Clear); Bilirubin Urine Negative (Negative); Blood Urine Negative (Negative); Color Urine Yellow (Yellow); Glucose Urine UA Negative (Negative); Ketones Urine Negative (Negative); Leukocyte Esterase Ur 2+ LEU/UL (Negative); Nitrate Urine Negative (Negative); Protein Urine Negative (Negative); Specific Grav Ur 1.014 (1.001-1.035); Urobilinogen Urine Negative mg/dL (<2.0)
--- NOTE | 2020-01-18 06:14 | ED.MALEGU ---
HPI - Male Genitourinary General Chief complaint: Urogenital-Male Stated complaint: can not put josue back in Time Seen by Provider: 01/18/20 05:05 History of Present Illness HPI Narrative: Patient is a 74-year-old male who presents the ER for Josue catheter placement. intermediate removed it due to some blood and then failed x4 trying to reinsert it. Patient reports he has to be. No other complaints at this time. Related Data Home Medications Medication Instructions Recorded Confirmed allopurinol 300 mg PO DAILY 10/28/19 10/28/19 carvedilol 25 mg PO BID 10/28/19 10/28/19 cyanocobalamin (vitamin B-12) 2,000 mcg PO DAILY 10/28/19 10/28/19 [Vitamin B-12] furosemide [Lasix] 180 mg PO DAILY 10/28/19 10/28/19 glimepiride 1 mg PO DAILY 10/28/19 10/28/19 hydralazine 50 mg PO TID 10/28/19 10/28/19 hydrocodone-acetaminophen 1 tablet PO Q6H PRN 10/28/19 10/28/19 isosorbide mononitrate 30 mg PO DAILY 10/28/19 10/28/19 losartan 50 mg PO DAILY 10/28/19 10/28/19 pantoprazole 40 mg PO Q1-2D 10/28/19 10/28/19 ropinirole 3 mg PO DAILY 10/28/19 10/28/19 tamsulosin 0.4 mg PO DAILY 10/28/19 10/28/19 trazodone 50 mg PO DAILY 10/28/19 10/28/19 warfarin 2 - 4 mg PO DAILY 10/28/19 10/28/19 warfarin [Coumadin] 2 mg PO DAILY 10/28/19 10/28/19 Allergies Allergy/AdvReac Type Severity Reaction Status Date / Time gabapentin Allergy Itching Verified 11/19/19 09:35 zolpidem [From Ambien] Allergy Itching Verified 11/19/19 09:35 Review of Systems Constitutional: Constitutional: Denies chills and Denies fever(s) Gastrointestinal: Gastrointestinal: Denies abdominal pain, Denies nausea and Denies vomiting Genitourinary: Genitourinary: Reports oliguria, Denies dysuria, Denies testicular pain and Denies urinary frequency PMF Past Medical History Medical History (Updated 01/18/20 @ 06:17 by Blas Dasilva MD) BPH (benign prostatic hyperplasia) DM2 (diabetes mellitus, type 2) GI bleed Gout Hypertension Pneumonia Surgical History Surgical History (Updated 11/19/19 @ 09:35 by Thomas Vera) Hx of CABG Family History Family History (System 11/19/19 @ 09:35 by Thomas Vera) Unknown Family history unknown Sibling Prostate carcinoma Social History Social History (System 11/19/19 @ 09:35 by Thomas Vera) Social History: Patient lives with his ,is currently a full code. I attempted to call Kaia his 3 times and was not able to get an answer. The patient is vented and unable to respond to me. I am unable to retrieve information from the records and the patient is unable to respond. Smoking status: Unknown if ever smoked Alcohol intake: unknown Substance use: unknown Substance use type: unknown Spiritual care concerns: No Exam Narrative: Exam Narrative: GENERAL: Well-appearing, well-nourished, and in no acute distress. HEAD: Normocephalic, atraumatic. ABDOMEN: Soft, nontender, nondistended. EXTREMITIES: Chronic wounds to the right lower extremity that are wrapped. Toes appear blistered and scabbed. No necrosis. SKIN: Warm, dry, no rash. NEURO: Alert and oriented x3. PSYCH: Normal mood and affect. Course Course Emergency Course: Josue placed by nursing staff. Return of nonbloody urine. [facility]. Vital Signs Vital signs: Vital Signs Temperature 98.1 F 01/18/20 04:58 Pulse Rate 94 01/18/20 04:58 Respiratory Rate 19 01/18/20 04:58 Blood Pressure 141/71 H 01/18/20 04:58 Pulse Oximetry 100 01/18/20 04:58 Temperature 98.1 F 01/18/20 04:58 Pulse Rate 94 01/18/20 04:58 Respiratory Rate 19 01/18/20 04:58 Blood Pressure 141/71 H 01/18/20 04:58 Pulse Oximetry 100 01/18/20 04:58 MDM - Male Genitourinary Lab Data Labs: Lab Results 01/18/20 Range/Units 05:51 Urine Color Yellow (Yellow) Urine Appearance Clear (Clear) Urine pH 6.0 (5.0-9.0) Ur Specific [place] 1.014 (1.001-1.035) Urine Protein Negative (Negative) mg
--- NOTE | 2020-01-18 06:27 | PC.NURSE ---
called [facility] to transport patient to [place]. ETA [id number]
--- NOTE | 2020-01-18 06:29 | PC.NURSE ---
called NH and gave report to receiving RN at this time. all questions/concerns addressed.
[2020-01-18 06:45] VITALS: BP 113/60; PULSE 80; RESP 17; O2SAT 100
[2020-01-18] MEDS: HYDROcodone/acetaminophen (*CRX) 5-325 MG TABLET 1 TAB PO (06:55)
[2020-01-18 07:40] VITALS: BP 130/76; PULSE 72; RESP 16; O2SAT 98
== END 2020-01-18 07:40 ==
PROVIDERS: Emergency Provider Emergency Medicine; PCP Internal Medicine
DX: Z46.6 Encounter for fitting and adjustment of urinary device (principal); N40.0 Benign prostatic hyperplasia without lower urinary tract symptoms; E11.9 Type 2 diabetes mellitus without complications; I10 Essential (primary) hypertension; M10.9 Gout, unspecified; I25.10 Atherosclerotic heart disease of native coronary artery without angina pectoris; Z95.1 Presence of aortocoronary bypass graft; Z79.84 Long term (current) use of oral hypoglycemic drugs; Z79.01 Long term (current) use of anticoagulants
CPT/HCPCS: 51702; 81001; 87086; 87088; 99283; A9270

== ENCOUNTER 2020-01-29 05:57 | Emergency (ER) | payer MEDICARE, SELFPAY ==
--- NOTE | 2020-01-29 06:01 | ED.MALEGU ---
HPI - Male Genitourinary General Chief complaint: Urogenital-Male <Roxi Montoya MD - Last Filed: 01/29/20 07:17> Stated complaint: cath pain <Roxi Montoya MD - Last Filed: 01/29/20 07:17> Time Seen by Provider: 01/29/20 06:00 <Roxi Montoya MD - Last Filed: 01/29/20 07:17> Source: patient and EMS <Roxi Montoya MD - Last Filed: 01/29/20 07:17> Mode of arrival: EMS <Roxi Montoya MD - Last Filed: 01/29/20 07:17> Limitations: no limitations <Roxi Montoya MD - Last Filed: 01/29/20 07:17> History of Present Illness HPI Narrative: Patient is a 74 yo female who presented to the ER for evaluation of lower abd pain, urinary retention in setting of malfunctioning josue catheter. Pt at [facility], reporting leaking around josue catheter site and lower abdominal fullness starting this morning. Patient states that he would not let the nurses at the care facility change the Josue catheter as a last time he tried it was quite painful, thus he insisted he be brought to the emergency department. Patient denies fever, chills, chest pain, nausea or vomiting. He denies any blood coming from the Josue. Reports that since the Josue seems to have drained a small amount more he is having less abdominal pain. Per chart review, patient with history of hypertension, hyperlipidemia, atrial fibrillation, aortic valve replacement on anticoagulation, history of recent UTI, osteomyelitis, sepsis in November for which patient required intubation, transfer to [facility] where he was then put on broad-spectrum antibiotics, had a prolonged 6-week course of Levaquin, and then developed chronic urinary retention for which the indwelling Josue remains. <Roxi Montoya MD - Last Filed: 01/29/20 07:17> Related Data Home medications: Home Medications Medication Instructions Recorded Confirmed furosemide 40 mg PO BID 01/29/20 01/29/20 <Roxi Montoya MD - Last Filed: 01/29/20 07:17> Allergies/Adverse reactions: Allergies Allergy/AdvReac Type Severity Reaction Status Date / Time zolpidem Allergy Unknown Verified 01/29/20 06:36 gabapentin AdvReac Shakiness Verified 01/29/20 06:36 <Roxi Montoya MD - Last Filed: 01/29/20 07:17> Review of Systems Review of Systems: Narrative: CONSTITUTIONAL: Denies fever, chills, or sweats. EYES: Denies visual changes, redness, or discharge. ENT: Denies rhinorrhea, congestion, sore throat, or otalgia. CARDIOVASCULAR: Denies chest pain, palpitations, or edema. RESPIRATORY: Denies cough or dyspnea. GASTROINTESTINAL: Reports suprapubic pain, denies nausea or vomiting GENITOURINARY: Denies dysuria or hematuria. SKIN: Denies rash or itching. MUSCULOSKELETAL: Denies back pain, joint pain, or myalgia. NEUROLOGIC: Denies headache, numbness, or weakness. <Roxi Montoya MD - Last Filed: 01/29/20 07:17> REPLACED BY [facility] Past Medical History Medical History: Medical History (Updated 01/29/20 @ 07:31 by Milagro Savage MD) Aortic insufficiency Atrial fibrillation Chronic indwelling Josue catheter Coronary artery disease Gout Hyperlipidemia Hypertension Osteomyelitis Type 2 diabetes mellitus Urinary retention <Roxi Montoya MD - Last Filed: 01/29/20 07:17> Surgical History Surgical History: Surgical History (Updated 01/29/20 @ 06:24 by Roxi Montoya MD) Aortic valve replaced S/P CABG x 1 <Roxi Montoya MD - Last Filed: 01/29/20 07:17> Social History Social History: Social History (Updated 01/29/20 @ 06:25 by Roxi Motnoya MD) Alcohol intake: never Substance use: never Living arrangements: halfway Gender identity (if verbalized by the patient): Male <Roxi Montoya MD - Last Filed: 01/29/20 07:17> Exam Narrative: Exam Narrative: GENERAL: Awake, alert, conversant HEAD: Normocephalic, atraumatic. EYES: PERRLA and EOMI. ENT: Nares clear, no rhinorrhea or e
[2020-01-29] MEDS: LIDOCAINE HCL 2% GEL UROJET 10 ML PKG (06:23)
[2020-01-29 06:24] VITALS: BP 126/67; PULSE 79; RESP 20; TEMP 36.6; O2SAT 100
[2020-01-29 06:37] LABS: Basophils Percent Auto 0.2 % (0.2-1.2); Eosinophils Absolute Auto 0.4 K/mm3 (0-0.3); Eosinophils Percent Auto 6.9 % (0-4.4); Hemoglobin 8.9 g/dL (14.0-18.0); Immature Granulocyte Absolute 0.03 K/mm3 (0.00-0.031); Immature Granulocyte Percent A 0.6 % (0-0.5); Lymphocytes Absolute Auto 0.53 K/mm3 (0.9-3.2); Lymphocytes Percent Auto 9.9 % (18.3-44.2); Mean Corpuscular HGB Conc 31.8 g/dl (32-36); Mean Corpuscular Hemoglobin 30.4 pg (26-34); Mean Corpuscular Volume 95.6 fl (80-100); Mean Platelet Volume 10.2 fl (7.4-10.4); Monocytes Absolute Auto 0.4 K/mm3 (0.1-0.6); Monocytes Percent Auto 7.8 % (2.6-8.5); Neutrophils Percent Auto 74.6 % (45.5-73.1); Platelet Count Result 181 k/mm3 (150-375); Red Blood Count 2.93 M/mm3 (4.6-6.20); Red Cell Distribution Width 14.1 % (11.5-14.5); White Blood Count 5.4 K/mm3 (4.5-10.0)
[2020-01-29 06:50] LABS: Alanine Aminotransferase 20 U/L (4-50); Albumin Level 3.6 g/dL (3.5-5.1); Alkaline Phosphatase 112 U/L (38-126); Anion Gap 7 mmol/L (8-16); Aspartate Amino Transferase 41 U/L (17-59); Bilirubin,Total 0.5 mg/dL (0.2-1.3); Blood Urea Nitrogen 59 mg/dL (9-20); Calcium 9.7 mg/dL (8.4-10.2); Carbon Dioxide 30 mmol/L (22-30); Chloride 99 mmol/L (98-107); Estimated Glomerular Filt Rate 43; Glucose 108 mg/dL (75-110); Potassium 4.4 mmol/L (3.4-5.0); Sodium 136 mmol/L (137-145)
[2020-01-29 06:57] LABS: Add Urine Microscopic? YES; Appearance Urine Cloudy (Clear); Bacteria Urine Trace /hpf; Bilirubin Urine Negative (Negative); Budding Yeast Urine Present /hpf; Color Urine Yellow (Yellow); Glucose Urine UA Negative (Negative); Ketones Urine Negative (Negative); Leukocyte Esterase Ur 3+ LEU/UL (Negative); Nitrate Urine Negative (Negative); Protein Urine 1+ mg/dL (Negative); RBC Urine 21-50 /hpf (0-2); Specific Grav Ur 1.013 (1.001-1.035); Urobilinogen Urine Negative mg/dL (<2.0); WBC Urine >75 /hpf
--- NOTE | 2020-01-29 07:10 | PC.NURSE ---
Report taken from BEATRIZ Bazan. Pt resting on stretcher with call light in reach.
[2020-01-29 07:15] LABS: Blood Urine Negative (Negative)
--- NOTE | 2020-01-29 07:32 | PC.NURSE ---
Breakfast tray [facility] for [facility].
[2020-01-29 08:22] VITALS: BP 133/69; PULSE 60; RESP 18; O2SAT 100
[2020-01-29 10:40] VITALS: BP 123/69; PULSE 92; RESP 16; O2SAT 99
--- NOTE | 2020-01-29 10:43 | PC.NURSE ---
Pt resting on stretcher. Awaiting transportation for discharge. Call light within reach.
[2020-01-29 12:27] VITALS: BP 134/73; PULSE 60; RESP 16; O2SAT 100
== END 2020-01-29 12:58 ==
PROVIDERS: Emergency Medicine; Emergency Provider General Practice; PCP Internal Medicine
DX: R33.9 Retention of urine, unspecified (principal); N39.0 Urinary tract infection, site not specified; I10 Essential (primary) hypertension; E78.5 Hyperlipidemia, unspecified; I48.91 Unspecified atrial fibrillation; I35.1 Nonrheumatic aortic (valve) insufficiency; I25.10 Atherosclerotic heart disease of native coronary artery without angina pectoris; E11.9 Type 2 diabetes mellitus without complications; Z95.1 Presence of aortocoronary bypass graft; Z95.2 Presence of prosthetic heart valve
CPT/HCPCS: 36415; 51702; 80053; 81001; 85025; 87086; 87088; 96365; 99284; J0696

== ENCOUNTER 2020-05-25 19:59 | Inpatient (IN) | payer MEDICARE, SELFPAY ==
[2020-05-25] VITALS (21 sets, daily range): BP systolic 123–184; BP diastolic 60–89; PULSE 67–109; RESP 14–29; TEMP 36.8; O2SAT 96–100
--- NOTE | ~2020-05-25 | US_ITS ---
EXAMINATION: US pelvic limited INDICATION: Hematuria TECHNIQUE: High-resolution ultrasound of the urinary bladder is performed. COMPARISON: None available FINDINGS: The bladder is partially decompressed by Ramirez catheter. No intraluminal filling defect is identified. The bladder wall thickness measures up to 6 mm which is likely due to partially decompres sed state. No definite bladder wall mass is seen. IMPRESSION: 1. Ramirez catheter in an otherwise unremarkable urinary bladder. Reviewed, dictated and finalized at location A. PREPARATION TUTOR
[2020-05-25 20:40] LABS: INR 1.8; Prothrombin Time 21.6 Seconds (11.1-14.7)
[2020-05-25 20:41] LABS: Basophils Percent Auto 0.3 % (0.2-1.2); Eosinophils Absolute Auto 0.6 K/mm3 (0-0.3); Hematocrit 22.9 % (42.0-52.0); Hemoglobin 7.3 g/dL (14.0-18.0); Immature Granulocyte Absolute 0.02 K/mm3 (0.00-0.031); Immature Granulocyte Percent A 0.3 % (0-0.5); Lymphocytes Absolute Auto 0.74 K/mm3 (0.9-3.2); Lymphocytes Percent Auto 9.5 % (18.3-44.2); Mean Corpuscular HGB Conc 31.9 g/dl (32-36); Mean Corpuscular Hemoglobin 30.8 pg (26-34); Mean Corpuscular Volume 96.6 fl (80-100); Mean Platelet Volume 10.6 fl (7.4-10.4); Monocytes Absolute Auto 0.7 K/mm3 (0.1-0.6); Monocytes Percent Auto 8.4 % (2.6-8.5); Neutrophils Absolute Auto 5.7 K/mm3 (1.3-6.7); Neutrophils Percent Auto 73.5 % (45.5-73.1); Platelet Count Result 170 k/mm3 (150-375); Red Blood Count 2.37 M/mm3 (4.6-6.20); Red Cell Distribution Width 14.8 % (11.5-14.5); White Blood Count 7.8 K/mm3 (4.5-10.0)
[2020-05-25 20:53] LABS: Anion Gap 7 mmol/L (8-16); Blood Urea Nitrogen 83 mg/dL (9-20); Calcium 9.1 mg/dL (8.4-10.2); Carbon Dioxide 25 mmol/L (22-30); Chloride 108 mmol/L (98-107); Estimated CRCL calculation 28 ml/min; Estimated Glomerular Filt Rate 31; Glucose 141 mg/dL (75-110); Sodium 140 mmol/L (137-145)
--- NOTE | 2020-05-25 21:30 | PC.NURSE ---
bladder scan done. patient has approximately 1000ml in bladder. patient refusing to have josue replaced or to have straight cath done. wants to stand at his bedside and attempt to urinate in urinal. recreational therapy technician assisting patient.
--- NOTE | 2020-05-25 22:30 | PC.NURSE ---
patient standing at bedside with blood from penis. tech attempting to assist patient but patient refuses assistance or josue. states that is how this whole episode started. will discuss with provider.
--- NOTE | 2020-05-25 23:26 | PC.NURSE ---
Assumed care of pt, pt is alert and upright on stretcher. Placed on tele monitor. VSS.
[2020-05-25 23:49] LABS: Add Urine Microscopic? YES; Appearance Urine Cloudy (Clear); Bilirubin Urine Negative (Negative); Blood Urine 3+ (Negative); Glucose Urine UA Negative (Negative); Ketones Urine Negative (Negative); Leukocyte Esterase Ur Trace LEU/UL (Negative); Nitrate Urine Negative (Negative); Protein Urine 2+ mg/dL (Negative); RBC Urine >75 /hpf (0-2); Specific Grav Ur 1.013 (1.001-1.035); Urobilinogen Urine Negative mg/dL (<2.0)
[2020-05-25 23:51] LABS: Color Urine Light Red (Yellow)
[2020-05-26] VITALS (17 sets, daily range): BP systolic 101–159; BP diastolic 44–81; PULSE 60–112; RESP 14–24; TEMP 36.1–37; O2SAT 93–100; BMI 21.5
[2020-05-26] MEDS: MORPHINE SULFATE (*CRX) 4 MG/ML INJ IV PUSH ×4 (01:10→21:22)
--- NOTE | 2020-05-26 01:38 | ED.GENADULT ---
HPI - General Adult General Chief complaint: Urogenital-Male Stated complaint: bleeding from penis s/p josue removal Time Seen by Provider: 05/25/20 20:02 Source: patient Mode of arrival: EMS Limitations: no limitations History of Present Illness HPI narrative: 74-year-old with multiple medical problems, atrial fibrillation on warfarin and also has a chronic Josue catheter here with complaints of blood through his penis. Patient states that his Josue catheter was snf out and he was bleeding , nurse at the [facility] pulled it out and he started having more bleeding. Denies any complaints. Onset (ago): hour(s) (1) Associated symptoms: denies other symptoms Related Data Home Medications Medication Instructions Recorded Confirmed allopurinol 300 mg PO DAILY 10/28/19 10/28/19 carvedilol 25 mg PO BID 10/28/19 10/28/19 cyanocobalamin (vitamin B-12) 2,000 mcg PO DAILY 10/28/19 10/28/19 [Vitamin B-12] furosemide [Lasix] 180 mg PO DAILY 10/28/19 10/28/19 glimepiride 1 mg PO DAILY 10/28/19 10/28/19 hydralazine 50 mg PO TID 10/28/19 10/28/19 isosorbide mononitrate 30 mg PO DAILY 10/28/19 10/28/19 losartan 50 mg PO DAILY 10/28/19 10/28/19 pantoprazole 40 mg PO Q1-2D 10/28/19 10/28/19 ropinirole 3 mg PO DAILY 10/28/19 10/28/19 tamsulosin 0.4 mg PO DAILY 10/28/19 10/28/19 trazodone 50 mg PO DAILY 10/28/19 10/28/19 warfarin 2 - 4 mg PO DAILY 10/28/19 10/28/19 warfarin [Coumadin] 2 mg PO DAILY 10/28/19 10/28/19 furosemide 40 mg PO BID 01/29/20 01/29/20 ampicillin 05/25/20 05/25/20 hydroxyzine HCl 05/25/20 oxycodone 05/25/20 Allergies Allergy/AdvReac Type Severity Reaction Status Date / Time zolpidem Allergy Unknown Verified 05/25/20 20:39 gabapentin AdvReac Shakiness Verified 05/25/20 20:39 Review of Systems Review of Systems: All systems reviewed & are unremarkable except as noted in HPI and below Constitutional: Constitutional: Reports no additional constitutional complaints Eyes: Eyes: Reports no additional eye complaints ENT: Reports system reviewed and no additional complaints, except as documented Cardiovascular: Cardiovascular: Reports no additional cardiovascular complaints Respiratory: Respiratory: Reports no additional respiratory complaints Gastrointestinal: Gastrointestinal: Reports no additional gastrointestinal complaints Genitourinary: Genitourinary: Reports as per HPI Musculoskeletal: Musculoskeletal: Reports no additional musculoskeletal complaints [facility] Past Medical History Medical History Aortic insufficiency Atrial fibrillation BPH (benign prostatic hyperplasia) Chronic indwelling Josue catheter Coronary artery disease DM2 (diabetes mellitus, type 2) GI bleed Gout Gout Hyperlipidemia Hypertension Hypertension Osteomyelitis Pneumonia Type 2 diabetes mellitus Urinary retention Surgical History Surgical History Aortic valve replaced Hx of CABG S/P CABG x 1 Family History Family History Unknown Family history unknown Sibling Prostate carcinoma Social History Social History Social History: Patient lives with his ,is currently a full code. I attempted to call Kaia his 3 times and was not able to get an answer. The patient is vented and unable to respond to me. I am unable to retrieve information from the records and the patient is unable to respond. Smoking status: Unknown if ever smoked Alcohol intake: unknown Substance use: unknown Substance use type: unknown Gender identity (if verbalized by the patient): Male Spiritual care concerns: No Exam Narrative: Exam Narrative: GENERAL:, Thin , pale , and in no acute distress. HEAD: Normocephalic, atraumatic. EYES: PERRLA and EOMI. NECK: Supple. CHEST: Clear to auscultation. No res
[2020-05-26] MEDS: LIDOCAINE HCL 2% GEL UROJET 10 ML PKG (02:03)
--- NOTE | 2020-05-26 02:14 | PM.IMHP ---
H&P: HPI History of Present Illness Date/Time: 05/26/20 02:14 Chief Complaint: Gross Hematuria Narrative: This is a 74 year old Diabetic male who is known to have a chronic indwelling urinary catheter for the past 8-9 months, chronic atrial fibrillation on coumadin therapy and a chronic right lateral thigh wound among many other comorbidities who presented to the hospital today from the [facility] secondary to gross hematuria. The patient just had his josue catheter changed out 2 days ago and at that time he complains that it was very painful and he had minimal urine output. He started to have dark urine in his catheter today and had the catheter removed today which led to bright red gross hematuria. The patient was [facility] and Urology was consulted by ER provider. Urology has asked that the patient have a 3 way urinary catheter placed and CBI started. They have requested that we admit the patient to the hospital and they will evaluate him for his gross hematuria in the morning. The patient has no other complaints at this time and states that his chronic leg wound has been healing well. Review of Systems Review of Systems: All systems reviewed & are unremarkable except as noted in HPI and below PMFSH Past Medical History Medical History Aortic insufficiency Atrial fibrillation BPH (benign prostatic hyperplasia) Chronic indwelling Josue catheter Coronary artery disease DM2 (diabetes mellitus, type 2) GI bleed Gout Gout Hyperlipidemia Hypertension Hypertension Osteomyelitis Pneumonia Type 2 diabetes mellitus Urinary retention Surgical History Surgical History Aortic valve replaced Hx of CABG S/P CABG x 1 Family History Family History Unknown Family history unknown Sibling Prostate carcinoma Social History Social History Social History: Patient lives with his ,is currently a full code. I attempted to call Kaia his 3 times and was not able to get an answer. The patient is vented and unable to respond to me. I am unable to retrieve information from the records and the patient is unable to respond. Smoking status: Light tobacco smoker Tobacco type: cigars Second hand tobacco smoke exposure: No Additional smoking assessment comments: OCCASIONAl CIGAR PER PT. LAST ONE MORE THAN 1 YR AGO Alcohol intake: never Substance use: never Substance use type: does not use Gender identity (if verbalized by the patient): Male Sexual Orientation (if Verbalized by the Patient): Straight or Heterosexual Spiritual care concerns: No Meds Home Medications and Allergies Home Medications Medication Instructions Recorded Confirmed Type pantoprazole 40 mg PO DAILY 10/28/19 05/26/20 History tamsulosin 0.4 mg PO DAILY 10/28/19 05/26/20 History trazodone 25 mg PO HS 10/28/19 05/26/20 History warfarin 2.5 mg PO DAILY 10/28/19 05/26/20 History furosemide 40 mg PO DAILY 01/29/20 05/26/20 History ampicillin 500 mg PO DAILY 05/25/20 05/26/20 History hydroxyzine HCl 25 mg PO QPM 05/25/20 05/26/20 History oxycodone 5 mg PO Q4H 05/25/20 05/26/20 History acetaminophen 1,000 mg PO Q6H PRN 05/26/20 05/26/20 History arginine-vitamin C-vitamin E 1 g PO BID 05/26/20 05/26/20 History [Arginaid] ascorbic acid (vitamin C) [Vitamin 500 mg PO BID 05/26/20 05/26/20 History C] atorvastatin 40 mg PO HS 05/26/20 05/26/20 History bisacodyl 10 mg RECTAL DAILY PRN 05/26/20 05/26/20 History cyclobenzaprine 5 mg PO TID PRN 05/26/20 05/26/20 History duloxetine 30 mg PO DAILY 05/26/20 05/26/20 History ferrous sulfate 325 mg PO DAILY 05/26/20 05/26/20 History finasteride 5 mg PO DAILY 05/26/20 05/26/20 History magnesium citrate [Citroma] 300 ml PO DAILY PRN 05/26/20 05/26/20 History m
--- NOTE | 2020-05-26 03:15 | ADMGEN ---
This patient, Alton Rock, was admitted to [facility] Surg Room 326-01. Patient/family oriented to hospital policies and general routines including ID bracelet, bed and alarms, visiting hours, pain management, procedures, bathroom and other care routines, personal items, smoking policy, room service/diet, and visiting hours. Information on how to activate the Rapid Response Team has been discussed. Patient/Family are encouraged to report perceived risks to care and to ask questions if they do not understand what they are told or what they should do.
[2020-05-26] MEDS: SODIUM CHLORIDE 0.9% IV 1,000 ML 100 ML IV CONT ×3 (03:18→21:22)
[2020-05-26 03:34] LABS: Hematocrit 22.1 % (42.0-52.0)
[2020-05-26 03:50] LABS: Hemoglobin 6.9 g/dL (14.0-18.0)
--- NOTE | 2020-05-26 08:07 | WPDURCON ---
Assessment and Plan Assessment and plan (1) Gross hematuria: Code(s): R31.0 - Gross hematuria Status: Acute Assessment and Plan: Most likely secondary to traumatic Ramirez catheter placement as well as use of anticoagulants. Will obtain an ultrasound of his bladder to make sure there is no significant clot burden. Will have nurse irrigate catheter also. If significant clots are present he may require clot evacuation. Will keep NPO for now. (2) Urinary retention: Code(s): R33.9 - Retention of urine, unspecified Status: Inactive Assessment and Plan: Will need to be evaluated some point time with voiding trial once this acute episode of bleeding resolves. Urology Consult Note HPI Date Seen: 05/26/20 Time Seen: 08:08 Requesting Physician: Sb Chin MD Primary Care Provider: Leo Avery, Consult Narrative Reason for consult: Hematuria Narrative: Alton Rock is a 74 year old male with multiple medical problems including AFib on Coumadin therapy and chronic indwelling Ramirez. Also has a history aortic insufficiency and type 2 diabetes. Patient has been In and out of a [place] [facility] for the past year so. it is unclear the etiology of his difficulty with ambulation. Nonetheless he tells me that he has a indwelling Ramirez that is changed on a regular basis. The reason for the initial Ramirez catheter at this time is again on clear but possibly secondary to retention. That will need to be evaluated in the future. Patient was admitted on transfer from her [place] [facility] facility when he is Ramirez appeared to be half out. It was then removed and replaced in the developed gross hematuria. Patient currently has a indwelling 3 way Ramirez with CBI. Ramirez has been clamped for a couple hours and has remained clear. Patient is creatinine is 2.1 with his baseline being in the 2 range. Hemoglobin is 6.9 with hematocrit of 22.1. I see that he has had prior hemoglobins in 8-9 range. No radiologic studies have been done at this point time. He is resting comfortably. Review of Systems Review of Systems: All systems reviewed & are unremarkable except as noted in HPI and below PMFSH Past Medical History Medical History Aortic insufficiency Atrial fibrillation BPH (benign prostatic hyperplasia) Chronic indwelling Ramirez catheter Coronary artery disease DM2 (diabetes mellitus, type 2) GI bleed Gout Gout Hyperlipidemia Hypertension Hypertension Osteomyelitis Pneumonia Type 2 diabetes mellitus Urinary retention Surgical History Surgical History Aortic valve replaced Hx of CABG S/P CABG x 1 Family History Family History Unknown Family history unknown Sibling Prostate carcinoma Social History Social History Social History: Patient lives with his ,is currently a full code. I attempted to call Kaia his 3 times and was not able to get an answer. The patient is vented and unable to respond to me. I am unable to retrieve information from the records and the patient is unable to respond. Smoking status: Light tobacco smoker Tobacco type: cigars Second hand tobacco smoke exposure: No Additional smoking assessment comments: OCCASIONAl CIGAR PER PT. LAST ONE MORE THAN 1 YR AGO Alcohol intake: never Substance use: never Substance use type: does not use Gender identity (if verbalized by the patient): Male Sexual Orientation (if Verbalized by the Patient): Straight or Heterosexual Spiritual care concerns: No Meds Home Medications and Allergies Home Medications Medication Instructions Recorded Confirmed Type pantoprazole 40 mg PO DAILY 10/28/19 05/26/20 History tamsulosin 0.4 mg PO DAILY 10/28/19 05/26/20 History
--- NOTE | 2020-05-26 08:22 | PC.NURSE ---
BLADDER IRRIGATED W/ 180ML NS; INSTILLATION DONE WO DIFFICULTY W/ NO RETURN OF BLOOD OR CLOTS. DR. ESTRADA OFFICE CALLED TO MAKE AWARE. JAIN TO BE CLAMPED FOR STAT BEDSIDE U/S OF BLADDER. TEJINDER HENDERSON. DAY SHIFT UPDATED.
[2020-05-26 09:21] LABS: Hematocrit 21.3 % (42.0-52.0)
[2020-05-26 09:24] LABS: Hemoglobin 6.7 g/dL (14.0-18.0)
--- NOTE | 2020-05-26 12:16 | PM.IMPN ---
Progress Note: A&P Assessment and Plan (1) Gross hematuria: Code(s): R31.0 - Gross hematuria Status: Acute Assessment and Plan: The patient has been placed in observation status. Continue CBI. Urology has been consulted by ER provider. Continue Urology recommendations. Monitor hemoglobin. Transfuse as needed (2) Chronic anemia: Code(s): D64.9 - Anemia, unspecified Status: Chronic Assessment and Plan: Worsening anemia likely secondary to hematuria. Monitor H/H q 6 hrs. transfuse prn. Hold coumadin. (3) Acute on chronic renal failure: Qualifiers: Acute renal failure type: unspecified Chronic kidney disease stage: stage 3 (moderate) Chronic kidney disease stage 3 subtype: stage 3b (GFR 30-44) Qualified Code(s): N17.9 - Acute kidney failure, unspecified; N18.32 - Chronic kidney disease, stage 3b Code(s): N17.9 - Acute kidney failure, unspecified; N18.9 - Chronic kidney disease, unspecified Status: Acute Assessment and Plan: IV fluid challenge overnight. Monitor renal function and urine output. Avoid nephrotoxic agents, renally dose medications. (4) DM2 (diabetes mellitus, type 2): Qualifiers: Diabetes mellitus long term acute care registered nurse insulin use: without custodial use Diabetes mellitus complication status: with skin complications Diabetes mellitus complication detail: with other skin complication Qualified Code(s): E11.628 - Type 2 diabetes mellitus with other skin complications Code(s): E11.9 - Type 2 diabetes mellitus without complications Status: Chronic Assessment and Plan: Accuchecks, SSI Coverage, hypoglycemic protocol. (5) BPH (benign prostatic hyperplasia): Qualifiers: Lower urinary tract symptom presence: unspecified whether lower urinary tract symptoms present Qualified Code(s): N40.0 - Benign prostatic hyperplasia without lower urinary tract symptoms Code(s): N40.0 - Benign prostatic hyperplasia without lower urinary tract symptoms Status: Chronic Assessment and Plan: Continue flomax and Urology recommendations. (6) Gout: Qualifiers: Gout site: unspecified site Gout etiology: unspecified cause Chronicity: chronic Presence of tophus: without tophus Qualified Code(s): M1A.9XX0 - Chronic gout, unspecified, without tophus (tophi) Code(s): M10.9 - Gout, unspecified Status: Chronic Assessment and Plan: Continue allopurinol. (7) Hypertension: Qualifiers: Hypertension type: unspecified Qualified Code(s): I10 - Essential (primary) hypertension Code(s): I10 - Essential (primary) hypertension Status: Chronic Assessment and Plan: Monitor blood pressure. Continue coreg and hydralazine. 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 (9) Atrial fibrillation: Qualifiers: Atrial fibrillation type: unspecified Qualified Code(s): I48.91 - Unspecified atrial fibrillation Code(s): I48.91 - Unspecified atrial fibrillation Status: Chronic Assessment and Plan: Resume warfarin when appropriate. Additional Plan Tonsils noted. Will continue current treatment, transfuse hemoglobin as needed. Subjective Date/time seen: 05/26/20 12:16 Interval history: Patient was seen during the morning rounds today. Has mild generalized weakness. Otherwise feels good. No shortness of breath or chest pain. Mood stable. Review of Systems Review of Systems: All systems re
[2020-05-26 15:21] LABS: Hemoglobin 6.8 g/dL (14.0-18.0)
[2020-05-26] MEDS: SODIUM CHLORIDE 0.9% IV 250 ML 30 ML IV CONT (16:10)
[2020-05-26] MEDS: ASCORBIC ACID 500 MG TABLET PO (16:16)
[2020-05-26] MEDS: hydrOXYzine HCL 25 MG TABLET PO (16:17)
[2020-05-26] MEDS: DULoxetine HCL 30 MG CAPSULE.DR PO (16:18)
[2020-05-26] MEDS: FUROSEMIDE 40 MG TABLET PO (16:18)
[2020-05-26] MEDS: PANTOPRAZOLE 40 MG TABLET PO (16:18)
[2020-05-26] MEDS: MULTIVITAMINS THERAPEUTIC TAB (*BKC) 1 TABLET PO (16:18)
[2020-05-26] MEDS: TAMSULOSIN HCL 0.4 MG CAPSULE PO (16:19)
[2020-05-26] MEDS: FINASTERIDE 5 MG TABLET PO (16:19)
[2020-05-26] MEDS: traZODone HCL 25 MG TABLET PO (21:23)
[2020-05-26] MEDS: MELATONIN 3 MG TABLET 6 MG PO (21:23)
[2020-05-26] MEDS: SENNOSIDES 8.6 MG TABLET PO (21:23)
[2020-05-26] MEDS: METOPROLOL TARTRATE 25 MG TABLET PO (21:23)
[2020-05-26] MEDS: ATORVASTATIN 40 MG TABLET PO (21:23)
[2020-05-26] MEDS: BETAMETHASONE/CLOTRIMAZOLE CR 15 GM TUBE 1 APPLIC TOPICAL (21:26)
[2020-05-26 22:11] LABS: Hematocrit 21.4 % (42.0-52.0)
[2020-05-26 22:13] LABS: Glucose Point of Care 156 (65-105)
[2020-05-26 22:15] LABS: Hemoglobin 6.9 g/dL (14.0-18.0)
[2020-05-26] MEDS: TUBING, BLOOD PLUM PUMP TUBING 1 EACH XX (23:50)
[2020-05-27] VITALS (10 sets, daily range): BP systolic 111–129; BP diastolic 49–70; PULSE 68–85; RESP 16–20; TEMP 36.2–36.9; O2SAT 97–100
[2020-05-27] MEDS: SODIUM CHLORIDE 0.9% IV 250 ML 30 ML IV CONT ×2 (03:15→23:45)
[2020-05-27] MEDS: oxyCODONE HCL (*CRX) 5 MG TAB IR PO ×5 (06:14→21:10)
[2020-05-27 06:20] LABS: Basophils Percent Auto 0.3 % (0.2-1.2); Eosinophils Absolute Auto 0.6 K/mm3 (0-0.3); Eosinophils Percent Auto 8.8 % (0-4.4); Hematocrit 23.5 % (42.0-52.0); Hemoglobin 7.5 g/dL (14.0-18.0); Immature Granulocyte Absolute 0.02 K/mm3 (0.00-0.031); Immature Granulocyte Percent A 0.3 % (0-0.5); Lymphocytes Absolute Auto 0.62 K/mm3 (0.9-3.2); Lymphocytes Percent Auto 9.6 % (18.3-44.2); Mean Corpuscular HGB Conc 31.9 g/dl (32-36); Mean Corpuscular Hemoglobin 29.4 pg (26-34); Mean Corpuscular Volume 92.2 fl (80-100); Mean Platelet Volume 9.5 fl (7.4-10.4); Monocytes Absolute Auto 0.7 K/mm3 (0.1-0.6); Monocytes Percent Auto 10.7 % (2.6-8.5); Neutrophils Absolute Auto 4.5 K/mm3 (1.3-6.7); Neutrophils Percent Auto 70.3 % (45.5-73.1); Platelet Count Result 130 k/mm3 (150-375); Red Blood Count 2.55 M/mm3 (4.6-6.20); Red Cell Distribution Width 15.5 % (11.5-14.5); White Blood Count 6.5 K/mm3 (4.5-10.0)
[2020-05-27] MEDS: ACETAMINOPHEN 500 MG TABLET 1000 MG PO (08:34)
[2020-05-27] MEDS: BETAMETHASONE/CLOTRIMAZOLE CR 15 GM TUBE 1 APPLIC TOPICAL ×2 (08:42→21:11)
[2020-05-27] MEDS: TAMSULOSIN HCL 0.4 MG CAPSULE PO (08:47)
[2020-05-27] MEDS: FINASTERIDE 5 MG TABLET PO (08:47)
[2020-05-27] MEDS: FUROSEMIDE 40 MG TABLET PO (08:47)
[2020-05-27 08:48] LABS: Glucose Point of Care 112 (65-105)
[2020-05-27] MEDS: PANTOPRAZOLE 40 MG TABLET PO (08:48)
[2020-05-27] MEDS: METOPROLOL TARTRATE 25 MG TABLET PO ×2 (08:48→21:12)
[2020-05-27] MEDS: ASCORBIC ACID 500 MG TABLET PO ×2 (08:48→18:07)
[2020-05-27] MEDS: DULoxetine HCL 30 MG CAPSULE.DR PO (08:49)
[2020-05-27] MEDS: FERROUS SULFATE 324 MG TABLET PO (08:50)
[2020-05-27] MEDS: MULTIVITAMINS THERAPEUTIC TAB (*BKC) 1 TABLET PO (08:50)
--- NOTE | 2020-05-27 10:07 | PM.IMPN ---
Progress Note: A&P Assessment and Plan (1) Gross hematuria: Code(s): R31.0 - Gross hematuria Status: Acute Assessment and Plan: The patient has been placed in observation status. Continue CBI. Urology has been consulted by ER provider. Continue Urology recommendations. Monitor hemoglobin. Transfuse as needed (2) Chronic anemia: Code(s): D64.9 - Anemia, unspecified Status: Chronic Assessment and Plan: Worsening anemia likely secondary to hematuria. Monitor H/H q 6 hrs. transfuse prn. Hold coumadin. (3) Acute on chronic renal failure: Qualifiers: Acute renal failure type: unspecified Chronic kidney disease stage: stage 3 (moderate) Chronic kidney disease stage 3 subtype: stage 3b (GFR 30-44) Qualified Code(s): N17.9 - Acute kidney failure, unspecified; N18.32 - Chronic kidney disease, stage 3b Code(s): N17.9 - Acute kidney failure, unspecified; N18.9 - Chronic kidney disease, unspecified Status: Acute Assessment and Plan: IV fluid challenge overnight. Monitor renal function and urine output. Avoid nephrotoxic agents, renally dose medications. (4) DM2 (diabetes mellitus, type 2): Qualifiers: Diabetes mellitus predatory animal exterminator insulin use: without senior living use Diabetes mellitus complication status: with skin complications Diabetes mellitus complication detail: with other skin complication Qualified Code(s): E11.628 - Type 2 diabetes mellitus with other skin complications Code(s): E11.9 - Type 2 diabetes mellitus without complications Status: Chronic Assessment and Plan: Accuchecks, SSI Coverage, hypoglycemic protocol. (5) BPH (benign prostatic hyperplasia): Qualifiers: Lower urinary tract symptom presence: unspecified whether lower urinary tract symptoms present Qualified Code(s): N40.0 - Benign prostatic hyperplasia without lower urinary tract symptoms Code(s): N40.0 - Benign prostatic hyperplasia without lower urinary tract symptoms Status: Chronic Assessment and Plan: Continue flomax and Urology recommendations. (6) Gout: Qualifiers: Gout site: unspecified site Gout etiology: unspecified cause Chronicity: chronic Presence of tophus: without tophus Qualified Code(s): M1A.9XX0 - Chronic gout, unspecified, without tophus (tophi) Code(s): M10.9 - Gout, unspecified Status: Chronic Assessment and Plan: Continue allopurinol. (7) Hypertension: Qualifiers: Hypertension type: unspecified Qualified Code(s): I10 - Essential (primary) hypertension Code(s): I10 - Essential (primary) hypertension Status: Chronic Assessment and Plan: Monitor blood pressure. Continue coreg and hydralazine. 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 (9) Atrial fibrillation: Qualifiers: Atrial fibrillation type: unspecified Qualified Code(s): I48.91 - Unspecified atrial fibrillation Code(s): I48.91 - Unspecified atrial fibrillation Status: Chronic Assessment and Plan: Resume warfarin when appropriate. Additional Plan Tonsils noted. Will continue current treatment, transfuse hemoglobin as needed. Subjective Date/time seen: 05/27/20 10:07 Interval history: Patient was seen during the morning rounds today. Has mild generalized weakness. Otherwise feels good. No shortness of breath or chest pain. Mood stable. No new complaints. Review of Systems Review of TIMPIKe
--- NOTE | 2020-05-27 11:43 | WPDUROPN2 ---
Progress Note: A&P Assessment and Plan (1) Gross hematuria: Code(s): R31.0 - Gross hematuria Status: Acute Assessment and Plan: Urine clear yellow off CBI. May eat. Continue chronic josue for now. Bladder US was normal. May discharge at discretion of hospitalist with routine josue exchanges. (2) Urinary retention: Code(s): R33.9 - Retention of urine, unspecified Status: Inactive Assessment and Plan: Will need to be evaluated some point time with voiding trial once this acute episode of bleeding resolves. Subjective Subjective Date/Time Seen: 05/27/20 11:43 Principal diagnosis: hematuria Interval history: urine totally clear yellow this AM off CBI, no complaints from a urinary standpoint- mostly bothered by leg edema and wounds Review of Systems Review of Systems: All systems reviewed & are unremarkable except as noted in HPI and below Exam Const: General: cooperative Eyes: General: appearance normal, both eyes and all related structures Neck: Neck: normal visual inspection Chest: Chest palpation & inspection: normal inspection of the chest Resp: Effort & Inspection: normal respiratory effort Cardio: Rate: regular rate GI: Inspection: normal to inspection and non-distended Urinary Catheter: Urinary Catheter: urine clear Objective Data Vital Signs Vital Signs: Vital Signs - 24 hr 05/26/20 14:00 05/26/20 15:55 05/26/20 16:15 Temperature 36.9 C 36.9 C 36.1 C L Pulse Rate 112 H 90 60 Respiratory Rate 18 14 20 Blood Pressure 144/57 H 147/52 H 120/46 L Pulse Oximetry 99 99 93 05/26/20 16:18 05/26/20 17:18 05/26/20 18:18 Temperature 36.7 C 36.7 C 36.8 C Pulse Rate 80 92 112 H Respiratory Rate 16 16 16 Blood Pressure 135/68 141/74 H 145/81 H Pulse Oximetry 96 98 99 05/26/20 20:00 05/26/20 21:23 05/26/20 22:00 Temperature 36.6 C Pulse Rate 100 94 Respiratory Rate 18 Blood Pressure 129/69 Pulse Oximetry 100 97 05/26/20 23:36 05/26/20 23:49 05/27/20 01:05 Temperature 37.0 C 37.0 C 36.6 C Pulse Rate 76 76 72 Respiratory Rate 16 16 18 Blood Pressure 101/44 L 101/44 L 111/49 L Pulse Oximetry 98 98 100 05/27/20 02:05 05/27/20 03:05 05/27/20 06:00 Temperature 36.6 C 36.9 C 36.8 C Pulse Rate 71 76 83 Respiratory Rate 16 16 20 Blood Pressure 112/49 L 111/56 L 120/70 Pulse Oximetry 100 98 97 05/27/20 08:48 Temperature Pulse Rate 85 Respiratory Rate Blood Pressure Pulse Oximetry Intake/Output Intake/Output: Intake & Output 05/24/20 05/25/20 05/26/20 05/27/20 23:59 23:59 23:59 23:59 Intake Total 2690 1140 Output Total 100 2925 2500 Balance -100 235 -8320 Meds/Results Medications: Active Medications Generic Name Dose Route Start Last Admin Trade Name Freq PRN Reason Stop Dose Admin Acetaminophen 1,000 mg 05/26/20 12:13 05/27/20 08:34 Acetaminophen 500 Mg Tablet PO 1,000 mg Q6H PRN Administration Mild Pain (1-3) Ascorbic Acid 500 mg 05/26/20 17:00 05/27/20 08:48 Ascorbic Acid 500 Mg Tablet PO 500 mg BID MARY Administration Atorvastatin Calcium 40 mg 05/26/20 21:00 05/26/20 21:23 Atorvastatin 40 Mg Tablet PO 40 mg HS MARY Administration Bisacodyl 10 mg 05/26/20 12:13 Bisacodyl 10 Mg Suppository RECTAL DAILY PRN Constipation Clotrimazole 1 applic 05/26/20 21:00 05/27/20 08:42 Betamethasone/Clotrimazole Cr 15 Gm Tube TOPICAL 1 applic Q12HR MARY Administration Cyclobenzaprine HCl 5 mg 05/26/20 12:13 Cyclobenzaprine Hcl 5 Mg Tablet PO TID PRN Spasms Dextrose 12.5 gm 05/26/20 22:41 Dextrose 50% 25 Gm/50 Ml Syringe IV PUSH PRN PRN Hypoglycemia Protocol Duloxetine HCl 30 mg 05/26/20 09:00 05/27/20 08:49 Duloxetine Hcl 30 Mg Capsule.Dr PO 30 mg DAILY MARY Administration Ferrous Sulfate 324 mg 05/27/20 08:00 05/27/20 08:50 Ferrous Sulfate 324 Mg Tablet PO 324 mg DAILY@0800 [facility] Administr
[2020-05-27 12:07] LABS: Glucose Point of Care 127 (65-105)
[2020-05-27] MEDS: SODIUM CHLORIDE 0.9% IV 1,000 ML 100 ML IV CONT (13:31)
[2020-05-27] MEDS: hydrOXYzine HCL 25 MG TABLET PO (18:07)
[2020-05-27 18:36] LABS: Glucose Point of Care 119 (65-105)
[2020-05-27] MEDS: traZODone HCL 25 MG TABLET PO (21:11)
[2020-05-27] MEDS: SENNOSIDES 8.6 MG TABLET PO (21:12)
[2020-05-27] MEDS: ATORVASTATIN 40 MG TABLET PO (21:12)
[2020-05-27] MEDS: MELATONIN 3 MG TABLET 6 MG PO (21:12)
[2020-05-27 22:04] LABS: Glucose Point of Care 152 (65-105)
[2020-05-28] VITALS (8 sets, daily range): BP systolic 120–135; BP diastolic 51–65; PULSE 65–88; RESP 16–20; TEMP 36.3–37.1; O2SAT 96–100
[2020-05-28] MEDS: TUBING, BLOOD PLUM PUMP TUBING 1 EACH XX
[2020-05-28] MEDS: MORPHINE SULFATE (*CRX) 4 MG/ML INJ IV PUSH (03:46)
[2020-05-28] MEDS: SODIUM CHLORIDE 0.9% IV 1,000 ML 100 ML IV CONT ×2 (05:45→16:18)
[2020-05-28] MEDS: oxyCODONE HCL (*CRX) 5 MG TAB IR PO ×5 (05:47→20:20)
[2020-05-28 06:09] LABS: Hematocrit 25.7 % (42.0-52.0); Hemoglobin 8.3 g/dL (14.0-18.0); Mean Corpuscular HGB Conc 32.3 g/dl (32-36); Mean Corpuscular Hemoglobin 30.4 pg (26-34); Mean Corpuscular Volume 94.1 fl (80-100); Mean Platelet Volume 10.3 fl (7.4-10.4); Platelet Count Result 121 k/mm3 (150-375); Red Blood Count 2.73 M/mm3 (4.6-6.20); Red Cell Distribution Width 15.6 % (11.5-14.5); White Blood Count 6.6 K/mm3 (4.5-10.0)
[2020-05-28 06:22] LABS: INR 1.6; Prothrombin Time 19.2 Seconds (11.1-14.7)
[2020-05-28 08:04] LABS: Glucose Point of Care 90 (65-105)
--- NOTE | 2020-05-28 09:04 | PM.IMPN ---
Progress Note: A&P Assessment and Plan (1) Gross hematuria: Code(s): R31.0 - Gross hematuria Status: Acute Assessment and Plan: The patient has been placed in observation status. Continue CBI. Urology has been consulted by ER provider. Continue Urology recommendations. Monitor hemoglobin. Transfuse as needed (2) Chronic anemia: Code(s): D64.9 - Anemia, unspecified Status: Chronic Assessment and Plan: Hemoglobin stable at present time 8.3. Will restart Coumadin. At a very low dose. Monitor INR and CBC. (3) Acute on chronic renal failure: Qualifiers: Acute renal failure type: unspecified Chronic kidney disease stage: stage 3 (moderate) Chronic kidney disease stage 3 subtype: stage 3b (GFR 30-44) Qualified Code(s): N17.9 - Acute kidney failure, unspecified; N18.32 - Chronic kidney disease, stage 3b Code(s): N17.9 - Acute kidney failure, unspecified; N18.9 - Chronic kidney disease, unspecified Status: Acute Assessment and Plan: IV fluid challenge overnight. Monitor renal function and urine output. Avoid nephrotoxic agents, renally dose medications. (4) DM2 (diabetes mellitus, type 2): Qualifiers: Diabetes mellitus accounting analyst insulin use: without accounting analyst use Diabetes mellitus complication status: with skin complications Diabetes mellitus complication detail: with other skin complication Qualified Code(s): E11.628 - Type 2 diabetes mellitus with other skin complications Code(s): E11.9 - Type 2 diabetes mellitus without complications Status: Chronic Assessment and Plan: Accuchecks, SSI Coverage, hypoglycemic protocol. (5) BPH (benign prostatic hyperplasia): Qualifiers: Lower urinary tract symptom presence: unspecified whether lower urinary tract symptoms present Qualified Code(s): N40.0 - Benign prostatic hyperplasia without lower urinary tract symptoms Code(s): N40.0 - Benign prostatic hyperplasia without lower urinary tract symptoms Status: Chronic Assessment and Plan: Continue flomax and Urology recommendations. (6) Gout: Qualifiers: Gout site: unspecified site Gout etiology: unspecified cause Chronicity: chronic Presence of tophus: without tophus Qualified Code(s): M1A.9XX0 - Chronic gout, unspecified, without tophus (tophi) Code(s): M10.9 - Gout, unspecified Status: Chronic Assessment and Plan: Continue allopurinol. (7) Hypertension: Qualifiers: Hypertension type: unspecified Qualified Code(s): I10 - Essential (primary) hypertension Code(s): I10 - Essential (primary) hypertension Status: Chronic Assessment and Plan: Monitor blood pressure. Continue coreg and hydralazine. 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 (9) Atrial fibrillation: Qualifiers: Atrial fibrillation type: unspecified Qualified Code(s): I48.91 - Unspecified atrial fibrillation Code(s): I48.91 - Unspecified atrial fibrillation Status: Chronic Assessment and Plan: Resume warfarin today at a low dose and monitor INR and CBC. Additional Plan Will continue current treatment, transfuse hemoglobin as needed. Urine is grossly clear. Hemoglobin stable. Will restart Coumadin at a low dose and monitor INR. Subjective Date/time seen: 05/28/20 09:04 Interval history: Patient was seen during the morning rounds today. Has mild generalized weakness. Otherwise feels
[2020-05-28] MEDS: FERROUS SULFATE 324 MG TABLET PO (09:30)
[2020-05-28] MEDS: METOPROLOL TARTRATE 25 MG TABLET PO ×2 (09:31→20:21)
[2020-05-28] MEDS: ASCORBIC ACID 500 MG TABLET PO ×2 (09:31→17:09)
[2020-05-28] MEDS: DULoxetine HCL 30 MG CAPSULE.DR PO (09:31)
[2020-05-28] MEDS: MULTIVITAMINS THERAPEUTIC TAB (*BKC) 1 TABLET PO (09:32)
[2020-05-28] MEDS: FINASTERIDE 5 MG TABLET PO (09:33)
[2020-05-28] MEDS: TAMSULOSIN HCL 0.4 MG CAPSULE PO (09:33)
[2020-05-28] MEDS: FUROSEMIDE 40 MG TABLET PO (09:33)
[2020-05-28] MEDS: PANTOPRAZOLE 40 MG TABLET PO (09:33)
[2020-05-28] MEDS: BETAMETHASONE/CLOTRIMAZOLE CR 15 GM TUBE 1 APPLIC TOPICAL ×2 (09:34→20:21)
[2020-05-28 11:59] LABS: Glucose Point of Care 120 (65-105)
[2020-05-28 16:45] LABS: Glucose Point of Care 102 (65-105)
[2020-05-28] MEDS: hydrOXYzine HCL 25 MG TABLET PO (17:09)
[2020-05-28] MEDS: WARFARIN (*PBKC) 1 MG TABLET PO (17:09)
[2020-05-28] MEDS: ATORVASTATIN 40 MG TABLET PO (20:21)
[2020-05-28] MEDS: MELATONIN 3 MG TABLET 6 MG PO (20:22)
[2020-05-28] MEDS: SENNOSIDES 8.6 MG TABLET PO (20:22)
[2020-05-28] MEDS: traZODone HCL 25 MG TABLET PO (20:22)
[2020-05-29] MEDS: oxyCODONE HCL (*CRX) 5 MG TAB IR PO ×4 (00:57→12:40)
[2020-05-29] MEDS: SODIUM CHLORIDE 0.9% IV 1,000 ML 100 ML IV CONT (03:27)
[2020-05-29 06:00] VITALS: BP 127/52; PULSE 72; RESP 16; TEMP 36.6; O2SAT 98
[2020-05-29 06:38] LABS: Hematocrit 26.1 % (42.0-52.0); Hemoglobin 8.4 g/dL (14.0-18.0); Mean Corpuscular HGB Conc 32.2 g/dl (32-36); Mean Corpuscular Hemoglobin 30.9 pg (26-34); Mean Platelet Volume 10.2 fl (7.4-10.4); Platelet Count Result 116 k/mm3 (150-375); Red Blood Count 2.72 M/mm3 (4.6-6.20); Red Cell Distribution Width 15.4 % (11.5-14.5); White Blood Count 6.8 K/mm3 (4.5-10.0)
[2020-05-29 06:50] LABS: Estimated CRCL calculation 29 ml/min; Estimated Glomerular Filt Rate 33
[2020-05-29 06:51] LABS: INR 1.3; Prothrombin Time 17.2 Seconds (11.1-14.7)
[2020-05-29 08:22] LABS: Glucose Point of Care 99 (65-105)
[2020-05-29] MEDS: FERROUS SULFATE 324 MG TABLET PO (08:50)
[2020-05-29] MEDS: ASCORBIC ACID 500 MG TABLET PO (08:50)
[2020-05-29 08:51] VITALS: PULSE 80
[2020-05-29] MEDS: METOPROLOL TARTRATE 25 MG TABLET PO (08:51)
[2020-05-29] MEDS: FUROSEMIDE 40 MG TABLET PO (08:51)
[2020-05-29] MEDS: FINASTERIDE 5 MG TABLET PO (08:51)
[2020-05-29] MEDS: BETAMETHASONE/CLOTRIMAZOLE CR 15 GM TUBE 1 APPLIC TOPICAL (08:51)
[2020-05-29] MEDS: DULoxetine HCL 30 MG CAPSULE.DR PO (08:51)
[2020-05-29] MEDS: PANTOPRAZOLE 40 MG TABLET PO (08:53)
[2020-05-29] MEDS: MULTIVITAMINS THERAPEUTIC TAB (*BKC) 1 TABLET PO (08:53)
[2020-05-29] MEDS: TAMSULOSIN HCL 0.4 MG CAPSULE PO (08:53)
--- NOTE | 2020-05-29 09:17 | PM.DS ---
DS: Admitting Diagnosis Admitting Diagnosis Admitting Diagnosis: Gross hematuria Chronic anemia UTI Chronic leg ulcer DS: Discharge Diagnosis Discharge Diagnosis (1) Gross hematuria: Code(s): R31.0 - Gross hematuria Status: Acute Assessment and Plan: The patient has been placed in observation status. Continue CBI. Urology has been consulted by ER provider. Continue Urology recommendations. Monitor hemoglobin. Transfuse as needed (2) Chronic anemia: Code(s): D64.9 - Anemia, unspecified Status: Chronic Assessment and Plan: Hemoglobin stable at present time 8.3. Will restart Coumadin. At a very low dose. Monitor INR and CBC. (3) Acute on chronic renal failure: Qualifiers: Acute renal failure type: unspecified Chronic kidney disease stage: stage 3 (moderate) Chronic kidney disease stage 3 subtype: stage 3b (GFR 30-44) Qualified Code(s): N17.9 - Acute kidney failure, unspecified; N18.32 - Chronic kidney disease, stage 3b Code(s): N17.9 - Acute kidney failure, unspecified; N18.9 - Chronic kidney disease, unspecified Status: Acute Assessment and Plan: IV fluid challenge overnight. Monitor renal function and urine output. Avoid nephrotoxic agents, renally dose medications. (4) DM2 (diabetes mellitus, type 2): Qualifiers: Diabetes mellitus intermediate insulin use: without rat exterminator use Diabetes mellitus complication status: with skin complications Diabetes mellitus complication detail: with other skin complication Qualified Code(s): E11.628 - Type 2 diabetes mellitus with other skin complications Code(s): E11.9 - Type 2 diabetes mellitus without complications Status: Chronic Assessment and Plan: Accuchecks, SSI Coverage, hypoglycemic protocol. (5) BPH (benign prostatic hyperplasia): Qualifiers: Lower urinary tract symptom presence: unspecified whether lower urinary tract symptoms present Qualified Code(s): N40.0 - Benign prostatic hyperplasia without lower urinary tract symptoms Code(s): N40.0 - Benign prostatic hyperplasia without lower urinary tract symptoms Status: Chronic Assessment and Plan: Continue flomax and Urology recommendations. (6) Gout: Qualifiers: Gout site: unspecified site Gout etiology: unspecified cause Chronicity: chronic Presence of tophus: without tophus Qualified Code(s): M1A.9XX0 - Chronic gout, unspecified, without tophus (tophi) Code(s): M10.9 - Gout, unspecified Status: Chronic Assessment and Plan: Continue allopurinol. (7) Hypertension: Qualifiers: Hypertension type: unspecified Qualified Code(s): I10 - Essential (primary) hypertension Code(s): I10 - Essential (primary) hypertension Status: Chronic Assessment and Plan: Monitor blood pressure. Continue coreg and hydralazine. 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 (9) Atrial fibrillation: Qualifiers: Atrial fibrillation type: unspecified Qualified Code(s): I48.91 - Unspecified atrial fibrillation Code(s): I48.91 - Unspecified atrial fibrillation Status: Chronic Assessment and Plan: Resume warfarin today at a low dose and monitor INR and CBC. DS: Summary Hospital Course Hospital Course: 74 years old male who was admitted complained of having gross hematuria. Patient was also found to have a chronic anemia and urinary tract infection. Patient also have
[2020-05-29 10:26] VITALS: O2SAT 95
--- NOTE | 2020-05-29 11:00 | PC.NURSE ---
Report called to Evelia
[2020-05-29 12:19] LABS: Glucose Point of Care 139 (65-105)
[2020-05-29] MEDS: SILVERGEL (ELTA) 45 ML 1 APPLIC TOPICAL (12:41)
== END 2020-05-29 13:05 | DRG 690 ==
LOC: ANHED 05-26 01:45 → ANH3MEDSUR 05-26 01:59
PROVIDERS: Admitting Provider Family Medicine; Emergency Provider Family Medicine; PCP Internal Medicine; Visit Provider Internal Medicine
DX: N39.0 Urinary tract infection, site not specified (principal); I48.20 Chronic atrial fibrillation, unspecified; N17.9 Acute kidney failure, unspecified; D62 Acute posthemorrhagic anemia; T83.83XA Hemorrhage due to genitourinary prosthetic devices, implants and grafts, initial encounter; L97.819 Non-pressure chronic ulcer of other part of right lower leg with unspecified severity; B96.5 Pseudomonas (aeruginosa) (mallei) (pseudomallei) as the cause of diseases classified elsewhere; R31.0 Gross hematuria; T45.515A Adverse effect of anticoagulants, initial encounter; I12.9 Hypertensive chronic kidney disease with stage 1 through stage 4 chronic kidney disease, or unspecified chronic kidney disease; N18.32 Chronic kidney disease, stage 3b; E11.22 Type 2 diabetes mellitus with diabetic chronic kidney disease; N40.0 Benign prostatic hyperplasia without lower urinary tract symptoms; M1A.9XX0 Chronic gout, unspecified, without tophus (tophi); I25.10 Atherosclerotic heart disease of native coronary artery without angina pectoris; Z79.01 Long term (current) use of anticoagulants; Z95.1 Presence of aortocoronary bypass graft; Z95.2 Presence of prosthetic heart valve
CPT/HCPCS: 36415; 36430; 51700; 76857; 80048; 81001; 82565; 82948; 85014; 85018; 85025; 85027; 85610; 86850; 86860; 86870; 86880; 86900; 86901; 86902; 86922; 86971; 86999; 87077; 87086; 87088; 96361; 96365; 96374; 96375; 96376; 99285; A9270; G0378; J0696; J2270; J2543; J7030; J7050; P9016

== ENCOUNTER 2020-07-10 18:50 | Emergency (ER) | payer MEDICARE, SELFPAY ==
--- NOTE | ~2020-07-10 | XR_ITS ---
EXAMINATION: XR tibia fibula LT 2V DATE: 07/10/2020 20:26 INDICATION: Left lower leg injury. TECHNIQUE: 2 views of left tibia and fibula on 4 radiographs were obtained. COMPARISON: None. FINDINGS: Bone alignment is normal. No fracture. There is mild tricompartmental osteoarthritis of lef t knee joint. There is a small knee joint effusion. Vascular calcifications are noted. There are dyst rophic calcifications in the posterior calf. IMPRESSION: 1. Mild left knee osteoarthritis. 2. Small left knee joint effusion. Reviewed, dictated and finalized at location A.
[2020-07-10 19:16] VITALS: BP 134/62; PULSE 85; RESP 16; TEMP 36.6; O2SAT 100
[2020-07-10 23:10] VITALS: BP 139/81; PULSE 70; RESP 16; O2SAT 97
[2020-07-10 23:14] VITALS: BP 139/81; PULSE 78; RESP 16; O2SAT 98
--- NOTE | 2020-07-10 23:50 | ED.FALL ---
HPI - Fall General Chief Complaint: Fall Stated Complaint: FALL Time Seen by Provider: 07/10/20 23:34 Source: patient, EMS and RN notes reviewed Mode of arrival: EMS Limitations: no limitations History of Present Illness HPI Narrative: Patient is 74 years old white male came from senior living because of a fall twice today. Patient had a fall earlier today of unknown cause, later patient was trying to get in the chair and fell on his knees. Patient denies loss of consciousness, complaining of left lower leg pain, denying other injuries. Patient supposed to move and walk with medical technician assistant but usually had history of multiple fall because of self transferring. Related Data Home Medications Medication Instructions Recorded Confirmed multivitamin 1 tablet PO DAILY 05/26/20 05/26/20 Allergies Allergy/AdvReac Type Severity Reaction Status Date / Time zolpidem Allergy Unknown Verified 05/25/20 20:39 gabapentin AdvReac Shakiness Verified 05/25/20 20:39 Review of Systems Review of Systems: Narrative: CONSTITUTIONAL: Denies fever, chills, or sweats. EYES: Denies visual changes, redness, or discharge. ENT: Denies rhinorrhea, congestion, sore throat, or otalgia. CARDIOVASCULAR: Denies chest pain, palpitations, or edema. RESPIRATORY: Denies cough or dyspnea. GASTROINTESTINAL: Denies abdominal pain, nausea, vomiting, or diarrhea. GENITOURINARY: Denies dysuria or hematuria. SKIN: Denies rash or itching. MUSCULOSKELETAL: Denies back pain, joint pain, or myalgia. NEUROLOGIC: Denies headache, numbness, or weakness. PSYCHIATRIC: Denies anxiety or depression. [facility] Past Medical History Medical History Aortic insufficiency Atrial fibrillation BPH (benign prostatic hyperplasia) Chronic indwelling Ramirez catheter Coronary artery disease DM2 (diabetes mellitus, type 2) GI bleed Gout Gout Hyperlipidemia Hypertension Hypertension Osteomyelitis Pneumonia Type 2 diabetes mellitus Urinary retention Surgical History Surgical History Aortic valve replaced Hx of CABG S/P CABG x 1 Family History Family History Unknown Family history unknown Sibling Prostate carcinoma Social History Social History Social History: Patient lives with his ,is currently a full code. I attempted to call Kaia his 3 times and was not able to get an answer. The patient is vented and unable to respond to me. I am unable to retrieve information from the records and the patient is unable to respond. Smoking status: Light tobacco smoker Tobacco type: cigars Second hand tobacco smoke exposure: No Additional smoking assessment comments: OCCASIONAl CIGAR PER PT. LAST ONE MORE THAN 1 YR AGO Alcohol intake: never Substance use: never Substance use type: does not use Gender identity (if verbalized by the patient): Male Spiritual care concerns: No Exam Narrative: Exam Narrative: General appearance: Well-developed, well-nourished Skin: Left lower leg showed bruises, abrasion, swelling laterally with diffuse tenderness Head: Normocephalic, nontraumatic Eyes: Clear conjunctiva Neck: Supple, nontender Chest and respiratory: Airway patent, no respiratory distress, no accessory muscle use Heart: Regular rate/rhythm Abdomen: Soft, nontender, no organomegaly, quiet bowel sounds Vascular: Normal peripheral pulses, normal capillary refill. Musculoskeletal: Normal range of motion, nontender back, right foot is showing some in healing process, no discharge, no erythema no warmth. Neurologic: Alert and oriented ?3, AMBULANCE OFFICER is normal as tested, no gross motor deficit
[2020-07-11] MEDS: ONDANSETRON INJ 4 MG/2 ML VIAL IV PUSH (00:27)
[2020-07-11] MEDS: MORPHINE SULFATE (*CRX) 4 MG/ML INJ IV PUSH (00:27)
[2020-07-11 00:28] VITALS: BP 147/68; PULSE 70; RESP 16; O2SAT 100
[2020-07-11 02:22] VITALS: BP 128/78; PULSE 81; RESP 16; TEMP 36.6; O2SAT 96
--- NOTE | 2020-07-11 02:32 | PC.NURSE ---
YUE CALLED WITH UPDATED ETA....[id number]. CALL VOLUME EXCEEDING AVAILABILITY.
== END 2020-07-11 04:20 ==
PROVIDERS: Emergency Provider Emergency Medicine; PCP Internal Medicine
DX: S80.12XA Contusion of left lower leg, initial encounter (principal); I25.10 Atherosclerotic heart disease of native coronary artery without angina pectoris; I48.91 Unspecified atrial fibrillation; Z79.01 Long term (current) use of anticoagulants; I35.1 Nonrheumatic aortic (valve) insufficiency; E11.9 Type 2 diabetes mellitus without complications; M10.9 Gout, unspecified; E78.5 Hyperlipidemia, unspecified; I10 Essential (primary) hypertension; M86.9 Osteomyelitis, unspecified; N40.1 Benign prostatic hyperplasia with lower urinary tract symptoms; R33.8 Other retention of urine; M17.12 Unilateral primary osteoarthritis, left knee; Z95.1 Presence of aortocoronary bypass graft; Z95.2 Presence of prosthetic heart valve; W18.39XA Other fall on same level, initial encounter
CPT/HCPCS: 73590; 96374; 96375; 99284; J2270; J2405

== ENCOUNTER 2020-07-12 13:43 | Inpatient (IN) | payer MEDICARE, SELFPAY ==
[2020-07-12] VITALS (9 sets, daily range): BP systolic 103–119; BP diastolic 49–68; PULSE 62–88; RESP 14–20; TEMP 36.4–36.8; O2SAT 97–100; BMI 23.3
--- NOTE | ~2020-07-12 | CT_ITS ---
EXAMINATION: CT LE LT wo con DATE: 07/15/2020 16:55 INDICATION: Left calf hematoma. TECHNIQUE: Computed tomography (CT) of the left lower leg was performed without intravenous contrast. Automated exposure control and iterative reconstruction technique were employed. The dose-length pro duct was 1100.11 mGy-cm. COMPARISON: Left tibia and fibula radiographs 07/10/2020 FINDINGS: Bone alignment is normal. No fracture. There is mild tricompartmental osteoarthritis in the knee. There is mild to moderate polyarticular osteoarthritis in the foot and ankle. There is a small knee joint effusion. There is a large subcutaneous hematoma in the calf measuring 25.5 x 6.9 x 11.1 cm. There is diffuse subcutaneous edema. IMPRESSION: 1. Large subcutaneous hematoma in the calf. Reviewed, dictated and finalized at location A.
--- NOTE | ~2020-07-12 | BM_ITS ---
EXAMINATION: CCL bone marrow asp w bx diag ORDER COMPLETED DATE: 07/31/2020 12:28 INDICATION: Anemia. TECHNIQUE: A time-out was performed to verify the patient's name, date of , and procedure to b e performed. The procedure including the risks, benefits, and alternatives was discussed with the pat ient. Risks discussed included bleeding and infection. The patient understood the risks and agreed to proceed. The skin overlying the right posterior iliac spine was prepped and draped in usual sterile fashion. Anesthetic was administered with 1% lidocaine subcutaneously. Systemic analgesia was provide d with 50 mcg fentanyl IV. An 11 gauge needle was inserted into the ilium with fluoroscopic guidance. Bone marrow was aspirated. An 8 gauge needle was then inserted into the ilium with fluoroscopic guid ance. 2 core bone marrow biopsy specimens were obtained. There were no immediate complications. Fluor oscopy exposure time was 0.1 minutes. The total number of images was 8. FINDINGS: Real-time fluoroscopy demonstrates a marker overlying the right posterior iliac spine. IMPRESSION: 1. Successful fluoro-guided bone marrow aspiration. 2. Successful fluoro-guided bone marrow core biopsy. Reviewed, dictated and finalized at location A.
--- NOTE | ~2020-07-12 | XR_ITS ---
EXAMINATION: XR chest 2V EXAM DATE: 07/22/2020 10:49 INDICATION: Shortness of breath. TECHNIQUE: Portable AP frontal chest x-ray was obtained. Comparison is made to prior examination from 10/29/2019. FINDINGS: Sternotomy wires are present without findings to suggest sternal dehiscence. Cardiac valve replacements. There is pulmonary vascular congestion. The cardiac silhouette is enlarged. No confluen t consolidation, pneumothorax or pleural effusion suspected. There are bony degenerative changes. IMPRESSION: Cardiomegaly, pulmonary vascular congestion. Reviewed, dictated and finalized at location A.
--- NOTE | ~2020-07-12 | US_ITS ---
EXAMINATION: US renal BI EXAM DATE: 07/13/2020 13:14 INDICATION: Acute on chronic kidney insufficiency. TECHNIQUE: Multiple grayscale and Doppler images of the kidneys were obtained (by a technologist who performed the scan) and subsequently reviewed. There is no prior study for comparison. FINDINGS: Large amount of bilateral renal hilar fat, indicating renal cortical thinning, atrophy. Right kidney: There is normal contour and echogenicity. It measures 12.2 x 6.1 x 5.8 centimeters. T here are no focal renal lesions identified. There is no hydronephrosis. Left kidney: There is normal contour and echogenicity. It measures 10.4 x 6.0 x 5.8 centimeters. Th ere are no focal renal lesions identified. There is no hydronephrosis. Bladder unremarkable. IMPRESSION: Bilateral renal cortical thinning. No hydronephrosis. Reviewed, dictated and finalized at location A.
--- NOTE | ~2020-07-12 | XR_ITS ---
EXAMINATION: BONE SURVEY/METASTATIC SURVEY DATE: 08/03/2020 INDICATION: Myeloma TECHNIQUE: A skeletal survey was performed including AP views of the chest, abdomen and pelvis; AP an d lateral/lateral swimmers views of the cervical, thoracic and lumbar spine; lateral view of the skul l, and AP and lateral views of the appendicular skeleton excluding the hands and feet. COMPARISON: None. FINDINGS: No suspicious lytic or blastic bone lesions in the axial or appendicular skeleton. Mild thoracic dext rocurvature and mild lumbar levocurvature. Severe facet osteoarthritis in the cervical and lower lumb ar spine. Prominent anterior osteophytes along the cervical spine. Additional polyarticular osteoarth ritis, moderate severity at the bilateral acromioclavicular and sacral iliac joints and mild at many additional joints in the appendicular skeleton. Elevation of the left hemidiaphragm with left basilar opacities which could represent atelectasis and /or pneumonia. Cardiomegaly. Median sternotomy wires and mediastinal surgical clips are seen, likely from prior coronary artery bypass grafting. Postoperative changes of cardiac valve repair tear, likel y aortic. Retained epicardial pacemaker lead on the anterior inferior heart. There is an additional r etained pacemaker fragment projecting over the region of the right atrium. Extensive scattered vascul ar calcifications particularly in the bilateral lower limbs. Multiple skin giacomo project over the p osterior left calf likely for treatment of a large calf hematoma seen on CT dated 07/15/2020. IMPRESSION: 1. No suspicious lytic or blastic bone lesions. 2. Elevation of left hemidiaphragm with left basilar opacities which could represent atelectasis and/ or pneumonia. Reviewed, dictated and finalized at location A. IMPRESSION: 1. No suspicious lytic or blastic bone lesions. 2. Elevation of left hemidiaphragm with left basilar opacities which could repr esent atelectasis and/or pneumonia.
--- NOTE | ~2020-07-12 | US_ITS ---
EXAMINATION: US biopsy renal DATE: 08/07/2020 14:24 INDICATION: Acute on chronic kidney disease. TECHNIQUE: The procedure including the risks, benefits, and alternatives was discussed with the patie nt. Risks discussed included bleeding and infection. The patient understood the risks and agreed to p roceed. A timeout was performed to verify the patient's name, date of , and procedure to be p erformed. The skin overlying the left kidney was prepped and draped in usual sterile fashion. Anest hetic was administered with 1% lidocaine subcutaneously. An 18 gauge core biopsy needle was then use d to obtain 5 core biopsy specimens under continuous sonographic guidance. The entry site was cleaned and dressed. There were no immediate complications. FINDINGS: Ultrasound images demonstrate the needle in the kidney. IMPRESSION: 1. Ultrasound-guided random left kidney core needle biopsy. Reviewed, dictated and finalized at location A.
--- NOTE | ~2020-07-12 | US_ITS ---
EXAMINATION: US venous doppler [facility] DATE: 07/13/2020 13:45 INDICATION: Lower limb swelling TECHNIQUE: Grayscale ultrasound images without and with compression and Doppler ultrasound images of the bilateral lower extremity veins were obtained. COMPARISON: None. FINDINGS: The visualized portions of right common femoral vein, profunda (deep) femoral vein, femoral vein, pop liteal vein, posterior tibial veins, peroneal veins, gastrocnemius vein and greater saphenous vein ou tflow are patent. The visualized portions of left common femoral vein, profunda femoral vein, femoral vein, popliteal v ein, maximal posterior tibial veins, gastrocnemius vein and greater saphenous vein outflow are patent . The more distal left posterior tibial veins and the peroneal veins at the left calf were unable to be evaluated due to extreme pain to palpation at the posterior calf which per notation of the sonogra pher appeared blackened\necrotic. IMPRESSION: 1. No deep venous thrombosis in either lower limb. Veins at the left calf were unable to be visualiz ed due to extreme pain at this location. Reviewed, dictated and finalized at location A. IMPRESSION: 1. No deep venous thrombosis in either lower limb. Veins at the left calf were unable to be visualized due to extreme pain at this location.
[2020-07-12 14:43] LABS: Basophils Percent Auto 0.1 % (0.2-1.2); Eosinophils Absolute Auto 0.7 K/mm3 (0-0.3); Eosinophils Percent Auto 9.5 % (0-4.4); Immature Granulocyte Absolute 0.03 K/mm3 (0.00-0.031); Immature Granulocyte Percent A 0.4 % (0-0.5); Lymphocytes Absolute Auto 0.66 K/mm3 (0.9-3.2); Lymphocytes Percent Auto 9.4 % (18.3-44.2); Mean Corpuscular HGB Conc 31.8 g/dl (32-36); Mean Corpuscular Hemoglobin 30.3 pg (26-34); Mean Corpuscular Volume 95.5 fl (80-100); Mean Platelet Volume 11.6 fl (7.4-10.4); Monocytes Absolute Auto 0.9 K/mm3 (0.1-0.6); Monocytes Percent Auto 12.9 % (2.6-8.5); Neutrophils Absolute Auto 4.8 K/mm3 (1.3-6.7); Neutrophils Percent Auto 67.7 % (45.5-73.1); Platelet Count Result 103 k/mm3 (150-375); Red Blood Count 2.01 M/mm3 (4.6-6.20); Red Cell Distribution Width 15.1 % (11.5-14.5)
[2020-07-12 14:46] LABS: Hematocrit 19.2 % (42.0-52.0); Hemoglobin 6.1 g/dL (14.0-18.0)
[2020-07-12 14:53] LABS: INR 3.4; Prothrombin Time 34.7 Seconds (11.1-14.7)
[2020-07-12 14:54] LABS: Partial Thromboplastin Time 55.6 SECONDS (22.3-36.8)
[2020-07-12 14:56] LABS: Anion Gap 8 mmol/L (8-16); Blood Urea Nitrogen 70 mg/dL (9-20); Calcium 8.7 mg/dL (8.4-10.2); Carbon Dioxide 27 mmol/L (22-30); Chloride 102 mmol/L (98-107); Estimated CRCL calculation 24 ml/min; Estimated Glomerular Filt Rate 23; Glucose 164 mg/dL (75-110); Sodium 137 mmol/L (137-145)
[2020-07-12 15:05] LABS: NT Pro B Type Natriuretic Pept 6060 PG/ML (5-100)
[2020-07-12] MEDS: SODIUM CHLORIDE 0.9% IV 250 ML 30 ML IV CONT (15:06)
--- NOTE | 2020-07-12 15:13 | ED.LOWEXIN ---
HPI - Extremity Injury (Lower) General Chief Complaint: Extremity Injury, Lower Stated Complaint: left leg pain Time Seen by Provider: 07/12/20 13:52 History of Present Illness HPI Narrative: Patient is a 74-year-old male who presents to the ER with lower extremity weeping. Patient does have history of CHF. Patient is residing at [facility]. Was seen by his physician today who sent him here due to the appearance of his leg. Left leg is swollen and patient appears to have chronic issues with venous stasis. He has multiple weeping areas to the leg. He has chronic pain to the right lower extremity. He has no fever or redness. He does have bruising over the posterior aspect of his calf that he cannot tell me how long it has been there. Patient is oriented x3 but is a poor historian. Denies start black stools or vomiting blood. Related Data Home Medications Medication Instructions Recorded Confirmed multivitamin 1 tablet PO DAILY 05/26/20 05/26/20 Citroma 07/12/20 bisacodyl 07/12/20 07/12/20 cyclobenzaprine 07/12/20 07/12/20 hydrocodone-acetaminophen tablet 07/12/20 Allergies Allergy/AdvReac Type Severity Reaction Status Date / Time zolpidem Allergy Unknown Verified 07/12/20 15:28 gabapentin AdvReac Shakiness Verified 07/12/20 15:28 Review of Systems Review of Systems: All systems reviewed & are unremarkable except as noted in HPI and below Constitutional: Constitutional: Denies chills, Denies fever(s) and Reports weakness ENT: Denies nasal congestion and Denies sore throat Cardiovascular: Cardiovascular: Denies chest pain, Denies rapid heart rate and Denies radiating jaw, neck or arm pain Respiratory: Respiratory: Denies cough, Denies dyspnea and Denies wheezing Gastrointestinal: Gastrointestinal: Denies abdominal pain, Denies nausea and Denies vomiting Comments: No blood in stool Musculoskeletal: Comments: Lower extremity edema with weeping. [facility] Past Medical History Medical History Aortic insufficiency Atrial fibrillation BPH (benign prostatic hyperplasia) Chronic indwelling Ramirez catheter Coronary artery disease DM2 (diabetes mellitus, type 2) GI bleed Gout Gout Hyperlipidemia Hypertension Hypertension Osteomyelitis Pneumonia Type 2 diabetes mellitus Urinary retention Surgical History Surgical History Aortic valve replaced Hx of CABG S/P CABG x 1 Family History Family History Unknown Family history unknown Sibling Prostate carcinoma Social History Social History (Updated 07/12/20 @ 16:51 by Blas Dasilva MD) Smoking status: Light tobacco smoker Tobacco type: cigars Second hand tobacco smoke exposure: No Additional smoking assessment comments: OCCASIONAl CIGAR PER PT. LAST ONE MORE THAN 1 YR AGO Alcohol intake: never Substance use: never Substance use type: does not use Gender identity (if verbalized by the patient): Male Spiritual care concerns: No Exam Narrative: Exam Narrative: GENERAL: Chronically ill-appearing, well-nourished, and in no acute distress. HEAD: Normocephalic, atraumatic. EYES: PERRL and EOMI. no conjunctival ENT: Mucous membranes moist. CHEST: Clear to auscultation. No respiratory distress. HEART: Regular rate and rhythm. Normal peripheral pulses. ABDOMEN: Soft, nontender, nondistended, normal active bowel sounds. No gross blood on digital rectal exam and stool is Hemoccult negative. EXTREMITIES: Normal range of motion. 2+ edema. Weeping of the left lower extremity. No cellulitis. ecchymosis left posterior calf. SKIN: Warm, dry, see above. NEURO: Alert and oriented x3. Course Course Emergency Course: Patient does not believe he has seen a reviewer sales in the past. Patient will receive 2 units packed red blood cells which may help with his CHF. May have some bloo
--- NOTE | 2020-07-12 16:34 | PC.NURSE ---
MICAHAR faxed to [address] [place] [address]. Kay aware and will let RN know.
--- NOTE | 2020-07-12 16:59 | PC.NURSE ---
Attempt to call report, floor not available.
--- NOTE | 2020-07-12 17:00 | ADMGEN ---
This patient, Al[place] Rock, was admitted to 2 Medical Room 256-. Patient/family oriented to hospital policies and general routines including ID bracelet, bed and alarms, visiting hours, pain management, procedures, bathroom and other care routines, personal items, smoking policy, room service/diet, and visiting hours. Information on how to activate the Rapid Response Team has been discussed. Patient/Family are encouraged to report perceived risks to care and to ask questions if they do not understand what they are told or what they should do.
[2020-07-12] MEDS: ACETAMINOPHEN 325 MG TABLET 650 MG PO (18:46)
[2020-07-12] MEDS: MORPHINE SULFATE (*CRX) 4 MG/ML INJ IV PUSH (20:30)
--- NOTE | 2020-07-12 20:38 | PM.IMHP ---
H&P: HPI History of Present Illness Date/Time: 07/12/20 20:38 this is a 74-year-old male patient who comes from [facility] at [facility]. The patient was discharged from here on 05/29/2020 with gross hematuria. He had a CBI infusing at that time. His hemoglobin was stable at 8.3 at that time. His Coumadin was restarted but at a very low dose. Patient has chronic kidney failure. Stage III. He is also diabetic on long-term insulin. Patient has a chronic wound to his right thigh. Due to lower extremity weeping. He does have a history of congestive heart failure. He he was seen by his physician who told him that he needed to be sent to [facility] due to the appearance of the leg. The leg is swollen and appears to be chronic with venous stasis. His multiple weeping areas to his leg his chronic pain to his right extremity. No fever redness. The patient denies any black stools or vomiting. However patient was found have blood in his urine. The patient was admitted here last month for hematuria. Patient's blood pressure is 103/51. H&H is 6.1 and 19.2. Patient's creatinine is 2.7. Patient's creatinine was 2 last month. Is been up as high as 2.8 the past so his chronic renal failure. Patient was typed and cross-matched for 2 units packed red blood cells to be infused. The patient is being admitted for observation on the date of service of 07/12/2020. Chief Complaint: Leg pain Review of Systems Review of Systems: Narrative: Patient complains of right thigh pain All systems reviewed & are unremarkable except as noted in HPI and below Constitutional: Constitutional: Reports as per HPI and Reports no additional constitutional complaints Eyes: Eyes: Reports as per HPI and Reports no additional eye complaints ENT: Reports system reviewed and no additional complaints, except as documented and Reports Normal hearing present Cardiovascular: Cardiovascular: Reports no additional cardiovascular complaints Respiratory: Respiratory: Reports no additional respiratory complaints and Reports no additional respiratory complaints Gastrointestinal: Gastrointestinal: Reports as per HPI and Reports no additional gastrointestinal complaints Musculoskeletal: Musculoskeletal: Reports no additional musculoskeletal complaints Integumentary/Breasts: Skin/Breast: Reports system reviewed and no additional complaints, except as docu and Reports as per HPI Neurologic: Reports system reviewed and no additional complaints, except as documented, Reports as per HPI and Reports Normal hearing present Psychiatric: Psychiatric: Reports no additional psychiatric complaints and Reports as per HPI Endocrine: Endocrine: Reports no additional endocrine complaints Hematologic/Lymphatic: Hematologic/Lymphatic: Reports no additional hematologic/lymphatic complaints Allergic/Immunologic: Allergic/Immunologic: Reports no additional allergic/immunologic complaints [facility] Past Medical History Medical History (Updated 07/12/20 @ 20:49 by Emily Cheung NP) Aortic insufficiency Atrial fibrillation BPH (benign prostatic hyperplasia) Chronic indwelling Ramirez catheter Coronary artery disease DM2 (diabetes mellitus, type 2) GI bleed Gout Gout Hyperlipidemia Hypertension Hypertension Leg ulcer Right thigh Osteomyelitis Pneumonia Type 2 diabetes mellitus Urinary retention Surgical History Surgical History Aortic valve replaced Hx of CABG S/P CABG x 1 Family History Family History Unknown Family history unknown Sibling Prostate carcinoma Social History Social History (Updated 07/12/20 @ 20:50 by Emily Cheung NP) Social History: The patient lives in a care facility and his lives at home. He is a full code. He tells me he has never had any children. 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
[2020-07-12 21:10] LABS: Total Protein Urine Random 9 mg/dL; Ur Ttl Prot Creatinine Ratio 0.11 mg/mg (0-0.20)
[2020-07-12 21:12] LABS: Sodium Urine Random 18 meq/L
[2020-07-12 21:18] LABS: Eosinophil Urine None Seen % (None Seen)
[2020-07-12 21:24] LABS: Hematocrit 18.3 % (42.0-52.0); Hemoglobin 5.8 g/dL (14.0-18.0)
[2020-07-12 21:45] LABS: Glucose Point of Care 224 (65-105)
[2020-07-13] VITALS (19 sets, daily range): BP systolic 108–153; BP diastolic 38–65; PULSE 58–119; RESP 16–20; TEMP 36–37; O2SAT 94–100
[2020-07-13] MEDS: MELATONIN 3 MG TABLET 6 MG PO ×2 (00:18→21:37)
[2020-07-13] MEDS: ATORVASTATIN 40 MG TABLET PO ×2 (00:23→21:37)
[2020-07-13] MEDS: SENNOSIDES 8.6 MG TABLET PO ×2 (00:23→21:37)
[2020-07-13] MEDS: SODIUM CHLORIDE 0.9% IV 250 ML 30 ML IV CONT (03:26)
[2020-07-13] MEDS: MORPHINE SULFATE (*CRX) 4 MG/ML INJ IV PUSH ×2 (05:40→10:14)
--- NOTE | 2020-07-13 07:12 | WPDURCON ---
Assessment and Plan Assessment and plan (1) BPH (benign prostatic hyperplasia): Qualifiers: Lower urinary tract symptom presence: unspecified whether lower urinary tract symptoms present Qualified Code(s): N40.0 - Benign prostatic hyperplasia without lower urinary tract symptoms Code(s): N40.0 - Benign prostatic hyperplasia without lower urinary tract symptoms Status: Chronic Assessment and Plan: Recent urinary retention and hematuria secondary to traumatic catheterization that have resolved with initiation of Flomax and finasteride. Currently, no evidence of urinary retention and urine is clear. I would not intervene otherwise from our standpoint. He should remain on both tamsulosin and finasteride at the time of discharge. Urology Consult Note HPI Date Seen: 07/13/20 Requesting Physician: Henri Armenta MD Primary Care Provider: Leo Avery, Consult Narrative Narrative: Alton Rock is a 74 year old male who came familiar to our practice approximately 6 weeks ago when he was seen by Dr. Mayorga with transient gross hematuria. This was believed to be secondary to a traumatic catheter placement. Indeed, the hematuria cleared with supportive care. Thereafter he had some transient urinary retention, since his 2nd voiding trial 3 weeks ago he has been doing well. He is on finasteride and Flomax and currently denies a sense of incomplete emptying and denies recent gross hematuria. An outpatient bladder scan approximately 2 weeks ago showed a residual volume of less than 10 cc. He is admitted now with progressive venous stasis changes of his lower extremity. Review of Systems Cardiovascular: Cardiovascular: Denies chest pain, Denies lightheadedness, Denies palpitations and Denies dyspnea Respiratory: Respiratory: Denies dyspnea Gastrointestinal: Gastrointestinal: Denies diarrhea, Denies nausea and Denies vomiting Genitourinary: Genitourinary: Denies hematuria and Denies dysuria Endocrine: Endocrine: Denies palpitations [facility] Past Medical History Medical History Aortic insufficiency Atrial fibrillation BPH (benign prostatic hyperplasia) Chronic indwelling Ramirez catheter Coronary artery disease DM2 (diabetes mellitus, type 2) GI bleed Gout Gout Hyperlipidemia Hypertension Hypertension Leg ulcer Right thigh Osteomyelitis Pneumonia Type 2 diabetes mellitus Urinary retention Surgical History Surgical History Aortic valve replaced Hx of CABG S/P CABG x 1 Family History Family History Unknown Family history unknown Sibling Prostate carcinoma Social History Social History Social History: The patient lives in a care facility and his lives at home. He is a full code. He tells me he has never had any children. 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 Smoking status: Never smoker Tobacco type: cigars Second hand tobacco smoke exposure: No Additional smoking assessment comments: OCCASIONAl CIGAR PER PT. LAST ONE MORE THAN 1 YR AGO Alcohol intake: never Substance use: never Substance use type: does not use Gender identity (if verbalized by the patient): Male Sexual Orientation (if Verbalized by the Patient): Straight or Heterosexual Spiritual care concerns: No Meds Home Medications and Allergies Home Medications Medication Instructions Recorded Confirmed Type multivitamin 1 tablet PO DAILY 05/26/20 07/12/20 History Arginaid 1 g PO BID #60 ea 05/29/20 07/12/20 Rx acetaminophen 1,000 mg PO Q6H PRN #60 tablet 05/29/20 07/12/20 Rx ascorbic acid (vitamin C) [Vitamin 500 mg PO BID #60 tablet 05/29/20 07/12/20 Rx C] atorvastatin 40 mg PO HS #30 tablet 05/29/20 07/12/20 Rx du
[2020-07-13 07:50] LABS: Glucose Point of Care 126 (65-105)
[2020-07-13] MEDS: HYDROcodone/acetaminophen (*CRX) 5-325 MG TABLET 1 TAB PO (10:14)
[2020-07-13] MEDS: DULoxetine HCL 30 MG CAPSULE.DR PO (10:15)
[2020-07-13] MEDS: ASCORBIC ACID 500 MG TABLET PO ×2 (10:15→16:54)
[2020-07-13] MEDS: FUROSEMIDE 40 MG TABLET PO (10:15)
[2020-07-13] MEDS: MULTIVITAMINS THERAPEUTIC TAB (*BKC) 1 TABLET PO (10:15)
[2020-07-13] MEDS: FERROUS SULFATE 324 MG TABLET PO (10:15)
[2020-07-13] MEDS: PANTOPRAZOLE 40 MG TABLET PO ×2 (10:15→21:37)
[2020-07-13] MEDS: PREGABALIN (*CRX) 75 MG CAPSULE PO ×2 (10:15→16:54)
[2020-07-13] MEDS: hydrOXYzine HCL 25 MG TABLET PO ×4 (10:15→21:36)
[2020-07-13] MEDS: polyethylene glycoL 3350 17 GM POWD.PACK PO (10:15)
[2020-07-13] MEDS: FINASTERIDE 5 MG TABLET PO (10:15)
[2020-07-13] MEDS: METOPROLOL TARTRATE 12.5 MG TABLET PO ×2 (10:15→21:36)
[2020-07-13] MEDS: TAMSULOSIN HCL 0.4 MG CAPSULE PO (10:15)
--- NOTE | 2020-07-13 11:44 | PM.IMPN ---
Progress Note: A&P Assessment and Plan (1) Chronic anemia: Code(s): D64.9 - Anemia, unspecified Status: Chronic Assessment and Plan: He has chronic normocytic anemia. He was recently hospitalized in May 2020 and underwent blood transfusion at that time. Hemoglobin and hematocrit are even lower at this hospitalization. Hemoglobin 5.8 last night. He reportedly had an episode melena 1 week ago. He also had gross hematuria at last hospitalization, which has resolved now. Additionally, he has a large hematoma on the left posterior calf, which is likely contributing to anemia. He is currently being transfused a 2nd unit of blood. Repeat H&H 1 hour following transfusion. Trend H&H q6h. Transfuse to stable hemoglobin. Fecal occult blood test has been ordered. Awaiting specimen for collection Gastroenterology has been consulted in light of reported melena and severe anemia. Input is appreciated. Warfarin is on hold. Continue Protonix daily (2) Hematoma of left lower extremity: Code(s): S80.12XA - Contusion of left lower leg, initial encounter Status: Acute Assessment and Plan: He is a large, dark purple hematoma of left posterior calf. Unclear if he had some sort of trauma or injury. He is not able to provide any further details. The area is tender. He has been evaluated by wound care. At this time recommendations are to keep the area dry and intact. There is the possibility this hematoma can open, drain, and form a wound. We will continue to monitor closely (3) Chronic venous insufficiency of lower extremity: Code(s): I87.2 - Venous insufficiency (chronic) (peripheral) Status: Acute Assessment and Plan: Legs are edematous with chronic discoloration and multiple shallow ulcers, scabs, and blisters. He endorses pain of the bilateral lower extremities. Appreciate wound care recommendations. Continue Lotrisone cream Elevate extremities Supportive care. Analgesics feels well as needed for pain Check venous doppler (4) Acute on chronic renal failure: Qualifiers: Acute renal failure type: unspecified Chronic kidney disease stage: stage 3 (moderate) Chronic kidney disease stage 3 subtype: stage 3b (GFR 30-44) Qualified Code(s): N17.9 - Acute kidney failure, unspecified; N18.32 - Chronic kidney disease, stage 3b Code(s): N17.9 - Acute kidney failure, unspecified; N18.9 - Chronic kidney disease, unspecified Status: Acute Assessment and Plan: Baseline creatinine appears to be variable, around 2.0. Creatinine upon presentation is 2.7. He may be at his new baseline, or he may have a prerenal component related to dehydration. He was having issues with urinary retention, but this seems to have resolved; however obstructive etiology cannot be ruled out. Perform bladder scan Renal ultrasound has been ordered. Will await results Nephrology has been consulted and input is appreciated. (5) CHF (congestive heart failure): Code(s): I50.9 - Heart failure, unspecified Status: Acute Assessment and Plan: Last echo in October 2019 showed reduced EF of 30-35%. BNP is elevated at 6060, however does not appear to be in acute exacerbation. He appears relatively euvolemic at this time and is asymptomatic. Continue 40 mg daily. Monitor renal function closely. Continue metoprolol Monitor intake and output. Weigh patient daily. (6) Supratherapeutic INR: Code(s): R79.1 - Abnormal coagulation profile Status: Acute Assessment and Plan: He is maintained on chronic warfarin for atrial fibrillation. INR is 3.4. He is anemic and was noted to have melena. Warfarin on hold. Monitor INR daily (7) DM2 (diabetes mellitus, type 2): Qualifiers: Diabetes mellitus complication detail: with other skin complication Diabetes mellitus complication status: with skin complications Diabetes
[2020-07-13 12:21] LABS: Glucose Point of Care 148 (65-105)
[2020-07-13] MEDS: BETAMETHASONE/CLOTRIMAZOLE CR 15 GM TUBE 1 APPLIC TOPICAL ×2 (12:34→21:41)
--- NOTE | 2020-07-13 13:19 | PM.CNNEP ---
Assessment and Plan Assessment and plan (1) ANDRADE (acute kidney injury): Code(s): N17.9 - Acute kidney failure, unspecified Status: Acute Assessment and Plan: several possible issues/factors: - severe anemia - relative hypotension (100s systolic on presentation) - concurrent use of diuretics prior to admission - possible pre-renal factors could be a component of disease progression as well renal ultrasound with any acute issue -- findings c/w CKD urine electrolytes demonstrated pre-renal azotemia follow trend of repeat labs and UOP (2) Chronic kidney disease, stage IV (severe): Code(s): N18.4 - Chronic kidney disease, stage 4 (severe) Status: Chronic Assessment and Plan: normal creatinine in 2019 however, bout of ANDRADE due to sepsis in October 2019 and appears to have had CKD since that time baseline creatinine ~ 1.6 - 2.1mg/dl since January 2020 contributing factors include CHF, diabetes, age, and vascular disease (3) Anemia: Code(s): D64.9 - Anemia, unspecified Status: Acute Assessment and Plan: due to a combination of previous hematuria, supratherapuetic INR, hematoma, and melena PRBC transfusion per protocol holding coumadin Gastroenterololgy consultation (but likely no intervention till INR lower) follow H/H (4) Hematoma of left lower extremity: Code(s): S80.12XA - Contusion of left lower leg, initial encounter Status: Acute Assessment and Plan: unclear duration contributing to anemia(?) wound care following (5) Chronic venous insufficiency of lower extremity: Code(s): I87.2 - Venous insufficiency (chronic) (peripheral) Status: Chronic Assessment and Plan: wound care consulted pain control (6) CHF (congestive heart failure): Code(s): I50.9 - Heart failure, unspecified Status: Acute Assessment and Plan: appears stable may need to consider holding lasix in the setting of #1 and #3 Will continue to follow. History of Present Illness Reason for Consult Consult date: 07/13/20 Reason for consult: acute renal failure (on chronic kidney disease) Chief Complaint Chief complaint: Acute on chronic renal failure, CHF, anemia History of Present Illness Narrative: 74-year-old male patient with a past medical history as outlined below who was tranferred to [facility] for further evaluation of his lower extremity wounds. The patient was recently hospitalized here at [facility] about a month ago for hematuria which resolved with continuous bladder irrigation and holding his Coumadin. By the time of discharge his hemoglobin was relatively stable and his Coumadin was re-initiated at a lower dose. Apparently, the physician at his nursing facility noted his lower extremities which were weeping quite profusely at the time of his evaluation. It seemed to be more swollen and seemed to have more drainage than usual but did not appear to be overtly infected. Nevertheless, it was felt that he should at least be evaluated in the emergency room regarding his lower extremity wounds and hence the transfer to the ER. Workup and evaluation emergency room demonstrated the a for mentioned chronic lower extremity swelling in association with venous stasis changes and weeping as mention. There also appeared to be some hematoma in his left lower extremity although the etiology of this was not clear. The patient was hemodynamically stable although his blood pressure was a little bit lower than baseline in the 100 systolic range. Routine blood tests were done which demonstrated a marked decline in his hemoglobin and hematocrit with a value of 6.1 and 19.2, respectively. His kidney function was also somewhat higher in comparison to when he was last hospitalized here as well. Given the a for mentioned lower extremity wounds in conjunction wit
[2020-07-13 14:14] LABS: Hematocrit 25.8 % (42.0-52.0); Hemoglobin 8.4 g/dL (14.0-18.0)
[2020-07-13 14:27] LABS: Anion Gap 7 mmol/L (8-16); Blood Urea Nitrogen 64 mg/dL (9-20); Calcium 9.1 mg/dL (8.4-10.2); Carbon Dioxide 28 mmol/L (22-30); Chloride 104 mmol/L (98-107); Estimated CRCL calculation 26 ml/min; Estimated Glomerular Filt Rate 26; Glucose 155 mg/dL (75-110); Potassium 4.2 mmol/L (3.4-5.0); Sodium 139 mmol/L (137-145)
[2020-07-13 14:28] LABS: Albumin Level 3.9 g/dL (3.5-5.1); Anion Gap 8 mmol/L (8-16); Blood Urea Nitrogen 65 mg/dL (9-20); Carbon Dioxide 28 mmol/L (22-30); Chloride 104 mmol/L (98-107); Estimated CRCL calculation 26 ml/min; Estimated Glomerular Filt Rate 26; Glucose 156 mg/dL (75-110); INR 2.7; Phosphorus 4.4 mg/dL (2.5-4.5); Potassium 4.4 mmol/L (3.4-5.0); Prothrombin Time 29.1 Seconds (11.1-14.7); Sodium 140 mmol/L (137-145)
[2020-07-13 14:33] LABS: Hemoglobin A1C 5.6 % (<5.7)
[2020-07-13 17:15] LABS: Glucose Point of Care 152 (65-105)
--- NOTE | 2020-07-13 18:08 | WPDGICN ---
Assessment and Plan Assessment and plan (1) Melena: Code(s): K92.1 - Melena Status: Acute Assessment and Plan: no egd until inr ~ 1.6 continue with protonix bid and monitor for signs of bleeding (2) Acute on chronic blood loss anemia: Code(s): D62 - Acute posthemorrhagic anemia Status: Acute Assessment and Plan: chronic anemia but more anemic this time in setting of supratherapeutic inr because of coumadin he had hematuria but also melena and hematoma in leg we won't be able to do EGD until inr ~1.6 or less, he also has other multiple medical problems and responded to blood transfusion with holding coumadin for now of course if more brisk bleeding then urgent egd otherwise will wait (3) Supratherapeutic INR: Code(s): R79.1 - Abnormal coagulation profile Status: Acute Assessment and Plan: coumadin on hold repeat inr (4) Acute on chronic renal failure: Code(s): N17.9 - Acute kidney failure, unspecified; N18.9 - Chronic kidney disease, unspecified Status: Acute Assessment and Plan: medical treatment (5) Hematoma of left lower extremity: Code(s): S80.12XA - Contusion of left lower leg, initial encounter Status: Acute (6) Chronic venous insufficiency of lower extremity: Code(s): I87.2 - Venous insufficiency (chronic) (peripheral) Status: Acute (7) Gross hematuria: Code(s): R31.0 - Gross hematuria Status: Acute Assessment and Plan: urology on board (8) Valvular heart disease: Code(s): I38 - Endocarditis, valve unspecified Status: Acute GI Consult Note Consult date/time: 07/13/20 18:08 Reason for consult: melena, acute blood loss anemia HPI: Alton Rock is a 74 year old male admitted from [facility] at [facility]. He is poor historian and history obtained from chart, he was discharged on 05/29/2020 with gross hematuria and required CBI. He has multiple medical problems including chronic anemia hb 8.3, heart surgery chronically anticoagulated with coumadin, chronic kidney failure stage III, DM on long-term insulin and chronic wound in legs. He was sent here because his physician worried about appearance of the leg. Blood work showed more anemia with hb 6.1, inr 3.5 (still on coumadin) and ANDRADE with creat 2.7 (baseline 2). Patient was typed and cross-matched for 2 units packed red blood cells to be infused. RN also noted dark stools and no report of recent EGD. Last inr 2.7 Review of Systems Constitutional: Constitutional: Reports weakness Eyes: Eyes: Reports no additional eye complaints ENT: Reports Normal hearing present Cardiovascular: Cardiovascular: Reports no additional cardiovascular complaints Respiratory: Respiratory: Reports no additional respiratory complaints Gastrointestinal: Gastrointestinal: Reports melena Genitourinary: Genitourinary: Reports hematuria Musculoskeletal: Musculoskeletal: Denies neck pain Integumentary/Breasts: Skin/Breast: Reports dry skin and Reports wounds Neurologic: Reports confusion [facility] Past Medical History Medical History (Updated 07/13/20 @ 18:14 by Bam Prieto MD) Acute on chronic blood loss anemia Acute on chronic renal failure Aortic insufficiency Atrial fibrillation BPH (benign prostatic hyperplasia) CHF (congestive heart failure) Chronic indwelling Ramirez catheter Coronary artery disease DM2 (diabetes mellitus, type 2) GI bleed Gout Gout Hyperlipidemia Hypertension Hypertension Leg ulcer Right thigh Melena Osteomyelitis Pneumonia Type 2 diabetes mellitus Urinary retention Surgical History Surgical History Aortic valve replaced Hx of CABG S/P CABG x 1 Family History Family History Unknown Family history unknown Sibling Prostate carcinoma Social History Social History (Reviewe
[2020-07-13 21:29] LABS: Hematocrit 23.2 % (42.0-52.0); Hemoglobin 7.5 g/dL (14.0-18.0)
[2020-07-14 00:37] LABS: Glucose Point of Care 149 (65-105)
[2020-07-14 01:20] VITALS: BP 112/64; PULSE 109
[2020-07-14] MEDS: MORPHINE SULFATE (*CRX) 4 MG/ML INJ IV PUSH (01:27)
--- NOTE | 2020-07-14 01:42 | PC.NURSE ---
Called to room by PCT. Pt actively attempting to get out of bed, stating he's going home, becoming more aggressive with further conversation. Pt oriented to self only. Pt grimacing w/ pain when attempting to stand, pt given morphine for pain and taken to toilet w/ sarasteady. Pt is now resting comfortably in bed.
[2020-07-14 02:06] LABS: Hematocrit 25.5 % (42.0-52.0); Hemoglobin 8.2 g/dL (14.0-18.0); Mean Corpuscular HGB Conc 32.2 g/dl (32-36); Mean Corpuscular Hemoglobin 29.3 pg (26-34); Mean Corpuscular Volume 91.1 fl (80-100); Platelet Count Result 131 k/mm3 (150-375); Red Cell Distribution Width 15.7 % (11.5-14.5); White Blood Count 10.5 K/mm3 (4.5-10.0)
[2020-07-14 02:15] LABS: INR 2.8; Prothrombin Time 30.4 Seconds (11.1-14.7)
[2020-07-14 02:17] LABS: Albumin Level 4.1 g/dL (3.5-5.1); Anion Gap 8 mmol/L (8-16); Blood Urea Nitrogen 65 mg/dL (9-20); Calcium 9.6 mg/dL (8.4-10.2); Carbon Dioxide 29 mmol/L (22-30); Chloride 105 mmol/L (98-107); Estimated CRCL calculation 27 ml/min; Estimated Glomerular Filt Rate 27; Glucose 177 mg/dL (75-110); Phosphorus 4.5 mg/dL (2.5-4.5); Potassium 4.4 mmol/L (3.4-5.0); Sodium 142 mmol/L (137-145)
[2020-07-14 06:00] VITALS: BP 126/56; PULSE 79; RESP 18; TEMP 36; O2SAT 99
--- NOTE | 2020-07-14 06:38 | WPDUROPN2 ---
Progress Note: A&P Assessment and Plan (1) BPH (benign prostatic hyperplasia): Qualifiers: Lower urinary tract symptom presence: unspecified whether lower urinary tract symptoms present Qualified Code(s): N40.0 - Benign prostatic hyperplasia without lower urinary tract symptoms Code(s): N40.0 - Benign prostatic hyperplasia without lower urinary tract symptoms Status: Chronic Assessment and Plan: Recent urinary retention and hematuria secondary to traumatic catheterization that have resolved with initiation of Flomax and finasteride. Currently, no evidence of urinary retention and urine is clear. Nothing planned, from our viewpoint. Discharge on Tamsulosin and Finasteride. F/U as previously arranged. Subjective Subjective Date/Time Seen: 07/14/20 06:39 Continues to void well, urine clear Review of Systems Cardiovascular: Cardiovascular: Denies chest pain, Denies lightheadedness, Denies palpitations and Denies dyspnea Respiratory: Respiratory: Denies dyspnea Gastrointestinal: Gastrointestinal: Denies diarrhea, Denies nausea and Denies vomiting Genitourinary: Genitourinary: Denies hematuria and Denies dysuria Endocrine: Endocrine: Denies palpitations Exam Const: General: no acute distress Resp: Effort & Inspection: normal respiratory effort GI: Inspection: non-distended GI Palp: No abdominal tenderness and No Guarding due to palpation present (GI) Auscultation: normal bowel sounds Objective Data Vital Signs Vital Signs: Vital Signs - 24 hr 07/13/20 07:30 07/13/20 08:00 07/13/20 09:55 Temperature 98.0 F 98.0 F 98.1 F Pulse Rate 89 58 L 90 Respiratory Rate 18 18 18 Blood Pressure 120/59 L 122/52 L 135/65 Pulse Oximetry 100 100 98 07/13/20 10:10 07/13/20 10:15 07/13/20 11:10 Temperature 98.6 F 97.9 F Pulse Rate 99 80 75 Respiratory Rate 20 18 Blood Pressure 153/62 H 126/54 L Pulse Oximetry 97 94 07/13/20 12:10 07/13/20 14:00 07/13/20 16:00 Temperature 98.3 F 96.8 F L 96.8 F L Pulse Rate 88 65 68 Respiratory Rate 18 16 16 Blood Pressure 127/62 124/61 124/60 Pulse Oximetry 98 100 100 07/13/20 21:36 07/13/20 22:00 07/13/20 22:42 Temperature 97.3 F L Pulse Rate 106 H 106 H Respiratory Rate 20 Blood Pressure 108/58 L Pulse Oximetry 95 96 07/14/20 01:20 Temperature Pulse Rate 109 H Respiratory Rate Blood Pressure 112/64 Pulse Oximetry Intake/Output Intake/Output: Intake & Output 07/11/20 07/12/20 07/13/20 07/14/20 23:59 23:59 23:59 23:59 Intake Total 780 Output Total 700 Balance 80 Meds/Results Medications: Active Medications Generic Name Dose Route Start Last Admin Trade Name Freq PRN Reason Stop Dose Admin Acetaminophen 1,000 mg 07/12/20 20:58 Acetaminophen 500 Mg Tablet PO Q6H PRN Mild Pain (1-3) Hydrocodone Bitart/Acetaminophen 1 tab 07/12/20 15:50 07/13/20 10:14 Hydrocodone/Acetaminophen (*Crx) 5-325 Mg Tablet PO 1 tab Q4H PRN Administration Pain Rated 4-6 Ascorbic Acid 500 mg 07/13/20 09:00 07/13/20 16:54 Ascorbic Acid 500 Mg Tablet PO 500 mg BID MARY Administration Atorvastatin Calcium 40 mg 07/12/20 21:10 07/13/20 21:37 Atorvastatin 40 Mg Tablet PO 40 mg HS MARY Administration Bisacodyl 10 mg 07/12/20 20:58 Bisacodyl 10 Mg Suppository RECTAL DAILY PRN Constipation Clotrimazole 1 applic 07/13/20 11:00 07/13/20 21:41 Betamethasone/Clotrimazole Cr 15 Gm Tube TOPICAL 1 applic Q12HR MARY Administration Cyclobenzaprine HCl 5 mg 07/12/20 20:58 Cyclobenzaprine Hcl 5 Mg Tablet PO TID PRN Muscle Spasm Dextrose 12.5 gm 07/12/20 21:00 Dextrose 50% 25 Gm/50 Ml Syringe IV PUSH PRN PRN Hypoglycemia Protocol Duloxetine HCl 30 mg 07/13/20 09:00 07/13/20 10:15 Duloxetine Hcl 30 Mg Capsule.Dr PO 30 mg DAILY MARY Administration Ferrous Sulfate 324 mg 07/13/20 08:00 07/13/20 10:15
[2020-07-14 07:43] LABS: Glucose Point of Care 121 (65-105)
--- NOTE | 2020-07-14 09:29 | PM.IMPN ---
Progress Note: A&P Assessment and Plan (1) Chronic anemia: Code(s): D64.9 - Anemia, unspecified Status: Chronic Assessment and Plan: He has chronic normocytic anemia. He was recently hospitalized in May 2020 and underwent blood transfusion at that time. Hemoglobin and hematocrit are even lower at this hospitalization. Hemoglobin 5.8 on 07/12 and he was transfused 2 units. He reportedly had an episode of melena 1 week ago. He also had gross hematuria at last hospitalization, which has resolved now. Additionally, he has a large hematoma on the left posterior calf, which is likely contributing to anemia. Hemoglobin 8.2 this morning. Monitor H&H closely. Repeat this afternoon to ensure remaining stable. Transfuse as needed with hemoglobin threshold <7.0 Underwent transfusion of 2 units PRBC on 07/13/2020. Fecal occult blood test has been ordered. Awaiting specimen for collection Gastroenterology has been consulted in light of reported melena and severe anemia. Planning for EGD on Friday. Will allow for INR to come down. INR should be <1.6 to proceed with EGD. Warfarin is on hold. Continue Protonix daily (2) Hematoma of left lower extremity: Code(s): S80.12XA - Contusion of left lower leg, initial encounter Status: Acute Assessment and Plan: He is a large, dark purple hematoma of left posterior calf. He denies any recent trauma or injury. The area is exquisitely tender. He has been evaluated by wound care. At this time recommendations are to keep the area dry and intact. There is the possibility this hematoma can open, drain, and form a wound. We will continue to monitor closely Elevate extremity Analgesics available as needed for pain (3) Chronic venous insufficiency of lower extremity: Code(s): I87.2 - Venous insufficiency (chronic) (peripheral) Status: Acute Assessment and Plan: Legs are edematous with chronic discoloration and multiple shallow ulcers, scabs, and blisters. He endorses pain of the bilateral lower extremities. Venous Doppler negative for DVT in bilateral lower limbs. Veins of left calf unable to be visualize due to pain. He is on chronic anticoagulation with supratherapeutic INR, therefore DVT of left calf would be unlikely. Appreciate wound care recommendations. Continue Lotrisone cream Elevate extremities Supportive care. He may benefit from outpatient referral to vascular surgery for further evaluation at a later date (4) Acute on chronic renal failure: Qualifiers: Acute renal failure type: unspecified Chronic kidney disease stage: stage 3 (moderate) Chronic kidney disease stage 3 subtype: stage 3b (GFR 30-44) Qualified Code(s): N17.9 - Acute kidney failure, unspecified; N18.32 - Chronic kidney disease, stage 3b Code(s): N17.9 - Acute kidney failure, unspecified; N18.9 - Chronic kidney disease, unspecified Status: Acute Assessment and Plan: Baseline creatinine appears to be variable, around 2.0. Creatinine upon presentation is 2.7. He may have a prerenal component as he is requiring diuretics. Renal US showed cortical thinning without hydronephrosis. Creatinine improved to 2.4 today. Encourage adequate PO intake of fluids while monitoring volume status closely. Nephrology has been consulted and input is appreciated. (5) CHF (congestive heart failure): Code(s): I50.9 - Heart failure, unspecified Status: Acute Assessment and Plan: Last echo in October 2019 showed reduced EF of 30-35%. BNP is elevated at 6060, however does not appear to be in acute exacerbation. He appears relatively euvolemic at this time and is asymptomatic. Continue 40 mg Lasix daily. Monitor renal function closely. Continue metoprolol Monitor intake and output. Weigh patient daily. (6) Supratherapeutic INR: Code(s): R79.1 - Abnormal coagulation profile Status: Acute
[2020-07-14 09:48] VITALS: PULSE 78
[2020-07-14] MEDS: PREGABALIN (*CRX) 75 MG CAPSULE PO ×2 (09:48→16:10)
[2020-07-14] MEDS: TAMSULOSIN HCL 0.4 MG CAPSULE PO (09:48)
[2020-07-14] MEDS: MULTIVITAMINS THERAPEUTIC TAB (*BKC) 1 TABLET PO (09:48)
[2020-07-14] MEDS: FERROUS SULFATE 324 MG TABLET PO (09:48)
[2020-07-14] MEDS: FUROSEMIDE 40 MG TABLET PO (09:48)
[2020-07-14] MEDS: METOPROLOL TARTRATE 12.5 MG TABLET PO ×2 (09:48→20:07)
[2020-07-14] MEDS: ASCORBIC ACID 500 MG TABLET PO ×2 (09:48→16:10)
[2020-07-14] MEDS: FINASTERIDE 5 MG TABLET PO (09:48)
[2020-07-14] MEDS: BETAMETHASONE/CLOTRIMAZOLE CR 15 GM TUBE 1 APPLIC TOPICAL ×2 (09:48→20:07)
[2020-07-14] MEDS: DULoxetine HCL 30 MG CAPSULE.DR PO (09:48)
[2020-07-14] MEDS: PANTOPRAZOLE 40 MG TABLET PO ×2 (09:48→20:08)
[2020-07-14] MEDS: polyethylene glycoL 3350 17 GM POWD.PACK PO (09:49)
[2020-07-14] MEDS: hydrOXYzine HCL 25 MG TABLET PO ×4 (09:49→20:07)
[2020-07-14 12:35] LABS: Hematocrit 22.9 % (42.0-52.0); Hemoglobin 7.5 g/dL (14.0-18.0)
[2020-07-14 12:51] LABS: Glucose Point of Care 152 (65-105)
--- NOTE | 2020-07-14 13:18 | P.PNNP_ITS ---
Progress Note: A&P Assessment and Plan (1) ANDRADE (acute kidney injury): Code(s): N17.9 - Acute kidney failure, unspecified Status: Acute Assessment and Plan: * several possible issues/factors: - severe anemia - relative hypotension (100s systolic on presentation) - concurrent use of diuretics prior to admission - possible pre-renal factors * could be a component of disease progression as well * renal ultrasound with any acute issue -- findings c/w CKD * urine electrolytes demonstrated pre-renal azotemia * follow trend of repeat labs and UOP (2) Chronic kidney disease, stage IV (severe): Code(s): N18.4 - Chronic kidney disease, stage 4 (severe) Status: Chronic Assessment and Plan: * normal creatinine in 2019 * however, bout of ANDRADE due to sepsis in October 2019 and appears to have had CKD since that time * baseline creatinine ~ 1.6 - 2.1mg/dl since January 2020 * contributing factors include CHF, diabetes, age, and vascular disease (3) Anemia: Code(s): D64.9 - Anemia, unspecified Status: Acute Assessment and Plan: * due to a combination of previous hematuria, supratherapuetic INR, hematoma, and melena * PRBC transfusion per protocol * holding coumadin * Gastroenterololgy following -- waiting for INR to come down prior to any intervention/procedure * follow H/H (4) Hematoma of left lower extremity: Code(s): S80.12XA - Contusion of left lower leg, initial encounter Status: Acute Assessment and Plan: * unclear duration * contributing to anemia(?) * wound care following (5) Chronic venous insufficiency of lower extremity: Code(s): I87.2 - Venous insufficiency (chronic) (peripheral) Status: Chronic Assessment and Plan: * wound care consulted * pain control (6) CHF (congestive heart failure): Code(s): I50.9 - Heart failure, unspecified Status: Acute Assessment and Plan: * appears stable * on oral lasix Will continue to follow. Subjective Date/time seen: 07/14/20 13:18 Major complaint is that of generalized pain but does mention that it is worse in his lower extremities; tolerated PRBC transfusion without any issues or problems; no other acute complaints voiced at the time of my visit. Exam Narrative: Exam Narrative: General: Elderly male in NAD Heart: normal S1 and S2; no rub Lungs: clear to auscultation Abdomen: soft, nontender, nondistended, positive bowel sounds Extremities: no cyanosis or clubbing; 1 - 2+ edema Skin: chronic venous stasis changes and weeping noted Objective Data Vital Signs Vital Signs: Vital Signs Temp Pulse Resp BP Pulse Ox 07/14/20 09:48 78 07/14/20 06:00 36.0 C L 79 18 126/56 L 99 07/14/20 01:20 109 H 112/64 07/13/20 22:42 96 07/13/20 22:00 36.3 C L 106 H 20 108/58 L 95 07/13/20 21:36 106 H 07/13/20 16:00 36.0 C L 68 16 124/60 100 Intake/Output Intake/Output: Intake & Output 07/11/20 07/12/20 07/13/20 07/14/20 23:59 23:59 23:59 23:59 Intake Total 780 Output Total 700 200 Balance 80 -200 Meds/Results Medications: Active Medications Generic Name Dose Route Start Last Admin Trade N
--- NOTE | 2020-07-14 13:18 | PM.PNNEP ---
Progress Note: A&P Assessment and Plan (1) ANDRADE (acute kidney injury): Code(s): N17.9 - Acute kidney failure, unspecified Status: Acute Assessment and Plan: several possible issues/factors: - severe anemia - relative hypotension (100s systolic on presentation) - concurrent use of diuretics prior to admission - possible pre-renal factors could be a component of disease progression as well renal ultrasound with any acute issue -- findings c/w CKD urine electrolytes demonstrated pre-renal azotemia follow trend of repeat labs and UOP (2) Chronic kidney disease, stage IV (severe): Code(s): N18.4 - Chronic kidney disease, stage 4 (severe) Status: Chronic Assessment and Plan: normal creatinine in 2019 however, bout of ANDRADE due to sepsis in October 2019 and appears to have had CKD since that time baseline creatinine ~ 1.6 - 2.1mg/dl since January 2020 contributing factors include CHF, diabetes, age, and vascular disease (3) Anemia: Code(s): D64.9 - Anemia, unspecified Status: Acute Assessment and Plan: due to a combination of previous hematuria, supratherapuetic INR, hematoma, and melena PRBC transfusion per protocol holding coumadin Gastroenterololgy following -- waiting for INR to come down prior to any intervention/procedure follow H/H (4) Hematoma of left lower extremity: Code(s): S80.12XA - Contusion of left lower leg, initial encounter Status: Acute Assessment and Plan: unclear duration contributing to anemia(?) wound care following (5) Chronic venous insufficiency of lower extremity: Code(s): I87.2 - Venous insufficiency (chronic) (peripheral) Status: Chronic Assessment and Plan: wound care consulted pain control (6) CHF (congestive heart failure): Code(s): I50.9 - Heart failure, unspecified Status: Acute Assessment and Plan: appears stable on oral lasix Will continue to follow. Subjective Date/time seen: 07/14/20 13:18 Major complaint is that of generalized pain but does mention that it is worse in his lower extremities; tolerated PRBC transfusion without any issues or problems; no other acute complaints voiced at the time of my visit. Exam Narrative: Exam Narrative: General: Elderly male in NAD Heart: normal S1 and S2; no rub Lungs: clear to auscultation Abdomen: soft, nontender, nondistended, positive bowel sounds Extremities: no cyanosis or clubbing; 1 - 2+ edema Skin: chronic venous stasis changes and weeping noted Objective Data Vital Signs Vital Signs: Vital Signs Temp Pulse Resp BP Pulse Ox 07/14/20 09:48 78 07/14/20 06:00 36.0 C L 79 18 126/56 L 99 07/14/20 01:20 109 H 112/64 07/13/20 22:42 96 07/13/20 22:00 36.3 C L 106 H 20 108/58 L 95 07/13/20 21:36 106 H 07/13/20 16:00 36.0 C L 68 16 124/60 100 Intake/Output Intake/Output: Intake & Output 07/11/20 07/12/20 07/13/20 07/14/20 23:59 23:59 23:59 23:59 Intake Total 780 Output Total 700 200 Balance 80 -200 Meds/Results Medications: Active Medications Generic Name Dose Route Start Last Admin Trade Name Freq PRN Reason Stop Dose Admin Acetaminophen 1,000 mg 07/12/20 20:58 Acetaminophen 500 Mg Tablet PO Q6H PRN Mild Pain (1-3) Hydrocodone Bitart/Acetaminophen 1 tab 07/12/20 15:50 07/13/20 10:14 Hydrocodone/Acetaminophen (*Crx) 5-325 Mg Tablet PO 1 tab Q4H PRN Administration Pain Rated 4-6 Ascorbic Acid 500 mg 07/13/20 09:00 07/14/20 09:48 Ascorbic Acid 500 Mg Tablet PO 500 mg BID MARY Administration Atorvastatin Calcium 40 mg 07/12/20 21:10 07/13/20 21:37 Atorvastatin 40 Mg Tablet PO 40 mg HS MARY Administration Bisacodyl 10 mg 07/12/20 20:58 Bisacodyl 10 Mg Suppository RECTAL DAILY PRN Constipation Cl
[2020-07-14 14:00] VITALS: BP 108/54; PULSE 70; RESP 16; TEMP 36.7; O2SAT 100
[2020-07-14] MEDS: HYDROcodone/acetaminophen (*CRX) 5-325 MG TABLET 1 TAB PO ×2 (16:10→20:11)
[2020-07-14 16:27] LABS: Glucose Point of Care 164 (65-105)
[2020-07-14 16:49] LABS: Add Urine Microscopic? YES; Appearance Urine Clear (Clear); Bilirubin Urine Negative (Negative); Blood Urine Negative (Negative); Color Urine Yellow (Yellow); Glucose Urine UA Negative (Negative); Ketones Urine Negative (Negative); Leukocyte Esterase Ur Trace LEU/UL (Negative); Nitrate Urine Negative (Negative); Protein Urine Negative (Negative); RBC Urine 0-2 /hpf (0-2); Specific Grav Ur 1.013 (1.001-1.035); Squamous Epithelial Cell Urine Rare /hpf (Few); Urobilinogen Urine Negative mg/dL (<2.0); WBC Urine 0-3 /hpf
--- NOTE | 2020-07-14 17:26 | WPDGIPROGNO ---
Progress Note: A&P Assessment and Plan (1) Acute on chronic blood loss anemia: Code(s): D62 - Acute posthemorrhagic anemia Status: Acute Assessment and Plan: probably multifactorial, apparently had melena few days ago but in setting of supratherapeutic INR, today still elevated we could evaluate with EGD when INR ~ 1.6, perphaps Friday no overt gib anemia probably multifactorial, also noted hematoma in leg (2) Melena: Code(s): K92.1 - Melena Status: Acute Assessment and Plan: on medical treatment still elevated inr (primary has been holding coumadin) (3) Hematoma of left lower extremity: Code(s): S80.12XA - Contusion of left lower leg, initial encounter Status: Acute (4) Chronic venous insufficiency of lower extremity: Code(s): I87.2 - Venous insufficiency (chronic) (peripheral) Status: Acute (5) Supratherapeutic INR: Code(s): R79.1 - Abnormal coagulation profile Status: Acute Assessment and Plan: from coumadin (6) Acute on chronic renal failure: Qualifiers: Acute renal failure type: unspecified Chronic kidney disease stage: stage 3 (moderate) Chronic kidney disease stage 3 subtype: stage 3b (GFR 30-44) Qualified Code(s): N17.9 - Acute kidney failure, unspecified; N18.32 - Chronic kidney disease, stage 3b Code(s): N17.9 - Acute kidney failure, unspecified; N18.9 - Chronic kidney disease, unspecified Status: Acute Assessment and Plan: nephrology on board Subjective Date/time seen: 07/14/20 17:26 Interval history: no overt gib, main complain is pain in legs (he has hematoma in left leg), also complaining of difficulty urinating Review of Systems Review of Systems: All systems reviewed & are unremarkable except as noted in HPI and below Exam Const: General: comfortable, no acute distress and ill appearing chronically HENMT: General nose exam: Normal nares present Eyes: Sclera: sclerae normal Neck: Neck: supple Resp: Auscultation: clear to auscultation bilaterally Cardio: Heart sounds: Murmur heart sound present GI: GI Palp: Yes Soft to palpation and No Tenderness to palpation present (GI) Auscultation: normal bowel sounds Skin: Wounds: wounds noted (leg, weeping) Neuro: Cognition (Neuro): abnormal cognition (he is alert to person but confused) Speech: normal speech Extrem: General: edema Other: hematoma in left leg with wound Psych: Affect: Anxious affect present Objective Data Vital Signs Vital Signs: Vital Signs - 24 hr 07/13/20 21:36 07/13/20 22:00 07/13/20 22:42 Temperature 97.3 F L Pulse Rate 106 H 106 H Respiratory Rate 20 Blood Pressure 108/58 L Pulse Oximetry 95 96 07/14/20 01:20 07/14/20 06:00 07/14/20 09:48 Temperature 96.8 F L Pulse Rate 109 H 79 78 Respiratory Rate 18 Blood Pressure 112/64 126/56 L Pulse Oximetry 99 07/14/20 14:00 Temperature 98.0 F Pulse Rate 70 Respiratory Rate 16 Blood Pressure 108/54 L Pulse Oximetry 100 Intake/Output Intake/Output: Intake & Output 07/11/20 07/12/20 07/13/20 07/14/20 23:59 23:59 23:59 23:59 Intake Total 780 300 Output Total 700 200 Balance 80 100 Meds/Results Medications: Active Medications Generic Name Dose Route Start Last Admin Trade Name Freq PRN Reason Stop Dose Admin Acetaminophen 1,000 mg 07/12/20 20:58 Acetaminophen 500 Mg Tablet PO Q6H PRN Mild Pain (1-3) Hydrocodone Bitart/Acetaminophen 1 tab 07/12/20 15:50 07/14/20 16:10 Hydrocodone/Acetaminophen (*Crx) 5-325 Mg Tablet PO 1 tab Q4H PRN Administration Pain Rated 4-6 Ascorbic Acid 500 mg 07/13/20 09:00 07/14/20 16:10 Ascorbic Acid 500 Mg Tablet PO 500 mg BID MARY Administration Atorvastatin Calcium 40 mg 07/12/20 21:10 07/13/20 21:37 Atorvastatin 40 Mg Tablet PO 40 mg HS MARY Administration Bisacodyl 10 mg 07/12/20 20:58 Bisacodyl 10 Mg Supposit
[2020-07-14 18:33] LABS: Hematocrit 22.9 % (42.0-52.0); Hemoglobin 7.3 g/dL (14.0-18.0)
[2020-07-14] MEDS: ATORVASTATIN 40 MG TABLET PO (20:06)
[2020-07-14 20:07] VITALS: PULSE 72
[2020-07-14] MEDS: MELATONIN 3 MG TABLET 6 MG PO (20:07)
[2020-07-14] MEDS: SENNOSIDES 8.6 MG TABLET PO (20:08)
[2020-07-14 20:20] LABS: Glucose Point of Care 214 (65-105)
[2020-07-14 21:35] VITALS: BP 113/54; PULSE 82; RESP 18; TEMP 36.2; O2SAT 100
[2020-07-15] VITALS (17 sets, daily range): BP systolic 105–141; BP diastolic 47–78; PULSE 66–105; RESP 14–20; TEMP 36.3–37.1; O2SAT 92–100
[2020-07-15 01:38] LABS: Hematocrit 19.5 % (42.0-52.0); Hemoglobin 6.2 g/dL (14.0-18.0)
--- NOTE | 2020-07-15 04:37 | PC.NURSE ---
Lab reported patient has multiple antibodies and his blood is being ordered. Lab will notify us as soon as his PRBC have arrived and is ready.
[2020-07-15 06:39] LABS: Mean Corpuscular HGB Conc 31.9 g/dl (32-36); Mean Corpuscular Hemoglobin 29.2 pg (26-34); Mean Corpuscular Volume 91.4 fl (80-100); Mean Platelet Volume 11.9 fl (7.4-10.4); Platelet Count Result 122 k/mm3 (150-375); Red Blood Count 2.09 M/mm3 (4.6-6.20); Red Cell Distribution Width 15.6 % (11.5-14.5); White Blood Count 7.9 K/mm3 (4.5-10.0)
[2020-07-15 06:41] LABS: Hematocrit 19.1 % (42.0-52.0); Hemoglobin 6.1 g/dL (14.0-18.0)
[2020-07-15 06:50] LABS: INR 2.6; Prothrombin Time 28.4 Seconds (11.1-14.7)
[2020-07-15 06:52] LABS: Albumin Level 3.4 g/dL (3.5-5.1); Anion Gap 7 mmol/L (8-16); Blood Urea Nitrogen 64 mg/dL (9-20); Calcium 8.7 mg/dL (8.4-10.2); Carbon Dioxide 28 mmol/L (22-30); Chloride 102 mmol/L (98-107); Estimated CRCL calculation 26 ml/min; Estimated Glomerular Filt Rate 26; Glucose 159 mg/dL (75-110); Phosphorus 4.3 mg/dL (2.5-4.5); Potassium 4.5 mmol/L (3.4-5.0); Sodium 137 mmol/L (137-145)
[2020-07-15] MEDS: HYDROcodone/acetaminophen (*CRX) 5-325 MG TABLET 1 TAB PO ×2 (07:07→18:38)
[2020-07-15 07:39] LABS: Glucose Point of Care 149 (65-105)
[2020-07-15] MEDS: hydrOXYzine HCL 25 MG TABLET PO ×4 (08:09→20:38)
[2020-07-15] MEDS: ASCORBIC ACID 500 MG TABLET PO ×2 (08:09→16:08)
[2020-07-15] MEDS: DULoxetine HCL 30 MG CAPSULE.DR PO (08:10)
[2020-07-15] MEDS: BETAMETHASONE/CLOTRIMAZOLE CR 15 GM TUBE 1 APPLIC TOPICAL ×2 (08:10→20:39)
[2020-07-15] MEDS: TAMSULOSIN HCL 0.4 MG CAPSULE PO (08:10)
[2020-07-15] MEDS: polyethylene glycoL 3350 17 GM POWD.PACK PO (08:10)
[2020-07-15] MEDS: FUROSEMIDE 40 MG TABLET PO (08:10)
[2020-07-15] MEDS: FINASTERIDE 5 MG TABLET PO (08:10)
[2020-07-15] MEDS: MULTIVITAMINS THERAPEUTIC TAB (*BKC) 1 TABLET PO (08:11)
[2020-07-15] MEDS: PANTOPRAZOLE 40 MG TABLET PO ×2 (08:11→20:39)
[2020-07-15] MEDS: FERROUS SULFATE 324 MG TABLET PO (08:12)
[2020-07-15] MEDS: SODIUM CHLORIDE 0.9% IV 250 ML 30 ML IV CONT ×2 (08:12→18:38)
[2020-07-15] MEDS: METOPROLOL TARTRATE 12.5 MG TABLET PO ×2 (08:29→20:38)
[2020-07-15] MEDS: PREGABALIN (*CRX) 75 MG CAPSULE PO ×2 (08:35→16:08)
--- NOTE | 2020-07-15 10:42 | P.PNNP_ITS ---
Progress Note: A&P Assessment and Plan (1) ANDRADE (acute kidney injury): Code(s): N17.9 - Acute kidney failure, unspecified Status: Acute Assessment and Plan: * several possible issues/factors: - severe anemia - relative hypotension (100s systolic on presentation) - concurrent use of diuretics prior to admission - possible pre-renal factors * could be a component of disease progression as well * renal ultrasound with any acute issue -- findings c/w CKD * urine electrolytes demonstrated pre-renal azotemia * follow trend of repeat labs and UOP (2) Chronic kidney disease, stage IV (severe): Code(s): N18.4 - Chronic kidney disease, stage 4 (severe) Status: Chronic Assessment and Plan: * normal creatinine in 2019 * however, bout of ANDRADE due to sepsis in October 2019 and appears to have had CKD since that time * baseline creatinine ~ 1.6 - 2.1mg/dl since January 2020 * contributing factors include CHF with need for chronic diuretics, diabetes, age, and vascular disease (3) Anemia: Code(s): D64.9 - Anemia, unspecified Status: Acute Assessment and Plan: * due to a combination of previous hematuria, supratherapuetic INR, hematoma, low platelet count, and melena * PRBC transfusion per protocol * holding coumadin * Gastroenterololgy following -- waiting for INR to come down prior to any intervention/procedure * on PPI * follow H/H (4) Hematoma of left lower extremity: Code(s): S80.12XA - Contusion of left lower leg, initial encounter Status: Acute Assessment and Plan: * unclear duration * contributing to anemia(?) * wound care following (5) Chronic venous insufficiency of lower extremity: Code(s): I87.2 - Venous insufficiency (chronic) (peripheral) Status: Chronic Assessment and Plan: * wound care consulted * pain control (6) CHF (congestive heart failure): Code(s): I50.9 - Heart failure, unspecified Status: Acute Assessment and Plan: * appears stable * on oral lasix (likely helping given multiple PRBC transfusions) Will continue to follow. Subjective Date/time seen: 07/15/20 10:42 H/H down again by AM labs so PRBC transfusion ordered for today; still complaining of intermittent lower extremity pain that seems to come and go; no other acute complaints voiced. Exam Narrative: Exam Narrative: General: Elderly male in NAD Heart: normal S1 and S2; no rub Lungs: clear to auscultation Abdomen: soft, nontender, nondistended, positive bowel sounds Extremities: no cyanosis or clubbing; 1 - 2+ edema Skin: chronic venous stasis changes; weeping from multiple wounds/scabs/blisters; left posterior calf hematoma which is TTP Objective Data Vital Signs Vital Signs: Vital Signs Temp Pulse Resp BP Pulse Ox 07/15/20 08:29 87 07/15/20 08:18 36.4 C 80 16 105/49 L 99 07/15/20 07:55 36.7 C 89 20 109/63 99 07/15/20 06:00 36.3 C L 66 18 110/52 L 92 07/14/20 21:35 36.2 C L 82 18 113/54 L 100 07/14/20 20:07 72 07/14/20 14:00 36.7 C 70 16 108/54 L 100 Intake/Output Intake/Output: Intake & Output 07/12/20 07/13/20 07/14/20 07/15/20 23:59 23:59 23:59 23:59 Intake Total 780 300 845 Output Total 700 900 350
--- NOTE | 2020-07-15 10:42 | PM.PNNEP ---
Progress Note: A&P Assessment and Plan (1) ANDRADE (acute kidney injury): Code(s): N17.9 - Acute kidney failure, unspecified Status: Acute Assessment and Plan: several possible issues/factors: - severe anemia - relative hypotension (100s systolic on presentation) - concurrent use of diuretics prior to admission - possible pre-renal factors could be a component of disease progression as well renal ultrasound with any acute issue -- findings c/w CKD urine electrolytes demonstrated pre-renal azotemia follow trend of repeat labs and UOP (2) Chronic kidney disease, stage IV (severe): Code(s): N18.4 - Chronic kidney disease, stage 4 (severe) Status: Chronic Assessment and Plan: normal creatinine in 2019 however, bout of ANDRADE due to sepsis in October 2019 and appears to have had CKD since that time baseline creatinine ~ 1.6 - 2.1mg/dl since January 2020 contributing factors include CHF with need for chronic diuretics, diabetes, age, and vascular disease (3) Anemia: Code(s): D64.9 - Anemia, unspecified Status: Acute Assessment and Plan: due to a combination of previous hematuria, supratherapuetic INR, hematoma, low platelet count, and melena PRBC transfusion per protocol holding coumadin Gastroenterololgy following -- waiting for INR to come down prior to any intervention/procedure on PPI follow H/H (4) Hematoma of left lower extremity: Code(s): S80.12XA - Contusion of left lower leg, initial encounter Status: Acute Assessment and Plan: unclear duration contributing to anemia(?) wound care following (5) Chronic venous insufficiency of lower extremity: Code(s): I87.2 - Venous insufficiency (chronic) (peripheral) Status: Chronic Assessment and Plan: wound care consulted pain control (6) CHF (congestive heart failure): Code(s): I50.9 - Heart failure, unspecified Status: Acute Assessment and Plan: appears stable on oral lasix (likely helping given multiple PRBC transfusions) Will continue to follow. Subjective Date/time seen: 07/15/20 10:42 H/H down again by AM labs so PRBC transfusion ordered for today; still complaining of intermittent lower extremity pain that seems to come and go; no other acute complaints voiced. Exam Narrative: Exam Narrative: General: Elderly male in NAD Heart: normal S1 and S2; no rub Lungs: clear to auscultation Abdomen: soft, nontender, nondistended, positive bowel sounds Extremities: no cyanosis or clubbing; 1 - 2+ edema Skin: chronic venous stasis changes; weeping from multiple wounds/scabs/blisters; left posterior calf hematoma which is TTP Objective Data Vital Signs Vital Signs: Vital Signs Temp Pulse Resp BP Pulse Ox 07/15/20 08:29 87 07/15/20 08:18 36.4 C 80 16 105/49 L 99 07/15/20 07:55 36.7 C 89 20 109/63 99 07/15/20 06:00 36.3 C L 66 18 110/52 L 92 07/14/20 21:35 36.2 C L 82 18 113/54 L 100 07/14/20 20:07 72 07/14/20 14:00 36.7 C 70 16 108/54 L 100 Intake/Output Intake/Output: Intake & Output 07/12/20 07/13/20 07/14/20 07/15/20 23:59 23:59 23:59 23:59 Intake Total 780 300 845 Output Total 700 900 350 Balance 80 -600 495 Meds/Results Medications: Active Medications Generic Name Dose Route Start Last Admin Trade Name Freq PRN Reason Stop Dose Admin Acetaminophen 1,000 mg 07/12/20 20:58 Acetaminophen 500 Mg Tablet PO Q6H PRN Mild Pain (1-3) Hydrocodone Bitart/Acetaminophen 1 tab 07/12/20 15:50 07/15/20 07:07 Hydrocodone/Acetaminophen (*Crx) 5-325 Mg Tablet PO 1 tab Q4H PRN Administration Pain Rated 4-6 Ascorbic Acid 500 mg 07/13/20 09:00 07/15/20 08:09 Ascorbic Acid 500 Mg Tablet PO 500 mg BID MARY Administration Atorvastatin Calcium 40 mg 07/12/20 21:10 07/14/20 20:06
[2020-07-15] MEDS: MORPHINE SULFATE (*CRX) 4 MG/ML INJ IV PUSH (12:10)
--- NOTE | 2020-07-15 12:34 | PM.IMPN ---
Progress Note: A&P Assessment and Plan (1) Chronic anemia: Code(s): D64.9 - Anemia, unspecified <Lisa Kauffman PA-C - Last Filed: 07/15/20 13:46> Status: Chronic <Lisa Kauffman PA-C - Last Filed: 07/15/20 13:46> Assessment and Plan: He has chronic normocytic anemia. He was recently hospitalized in May 2020 and underwent blood transfusion at that time. Hemoglobin and hematocrit are even lower at this hospitalization. Hemoglobin 5.8 on 07/12 and he was transfused 2 units to stable hemoglobin. He reportedly had an episode of melena. Additionally, he has a large hematoma on the left posterior calf which is likely contributing to anemia. Hemoglobin declined again this morning and he was transfused 1 unit pRBC. Monitor H&H 1 hour following transfusion has been ordered. Continue to monitor q6h. Transfuse as needed with hemoglobin threshold <7.0 Fecal occult blood test has been ordered. Awaiting specimen for collection Gastroenterology has been consulted in light of reported melena and severe anemia. Initially planning for EGD Friday, but given continued Hgb decline, would like to proceed sooner. Discussed with Dr. Frances and will plan for EGD tomorrow. Warfarin is on hold. Continue Protonix daily <Lisa Kauffman PA-C - Last Filed: 07/15/20 13:46> (2) Hematoma of left lower extremity: Code(s): S80.12XA - Contusion of left lower leg, initial encounter <Lisa Kauffman PA-C - Last Filed: 07/15/20 13:46> Status: Acute <Lisa Kauffman PA-C - Last Filed: 07/15/20 13:46> Assessment and Plan: He has a large, dark purple hematoma of left posterior calf. He denies any recent trauma or injury. The area is exquisitely tender and leg is edematous. This is likely source for anemia. Obtain CT of left lower extremity. Will place consult to general surgery for further evaluation. He has been evaluated by wound care. At this time recommendations are to keep the area dry and intact. Analgesics available as needed for pain <Lisa Kauffman PA-C - Last Filed: 07/15/20 13:46> (3) Acute on chronic renal failure: Qualifiers: Acute renal failure type: unspecified Chronic kidney disease stage: stage 3 (moderate) Chronic kidney disease stage 3 subtype: stage 3b (GFR 30-44) Qualified Code(s): N17.9 - Acute kidney failure, unspecified; N18.32 - Chronic kidney disease, stage 3b <Lisa Kauffman PA-C - Last Filed: 07/15/20 13:46> Code(s): N17.9 - Acute kidney failure, unspecified; N18.9 - Chronic kidney disease, unspecified <Lisa Kauffman, PA-C - Last Filed: 07/15/20 13:46> Status: Acute <Lsia Kauffman, PA-C - Last Filed: 07/15/20 13:46> Assessment and Plan: Baseline creatinine appears to be variable, around 2.0. Creatinine upon presentation is 2.7. He may have a prerenal component as he is requiring diuretics. Renal US showed cortical thinning without hydronephrosis. Creatinine is 2.5 today. Encourage adequate PO intake of fluids while monitoring volume status closely. Nephrology has been consulted and input is appreciated. <Lisa BrionesMarly Carolasandra, PA-C - Last Filed: 07/15/20 13:46> (4) CHF (congestive heart failure): Code(s): I50.9 - Heart failure, unspecified <Lisa BrionesMarly Carolasandra, PA-C - Last Filed: 07/15/20 13:46> Status: Acute <Lisa BrionesMarly Carolasandra, PA-C - Last Filed: 07/15/20 13:46> Assessment and Plan: Last echo in October 2019 showed reduced EF of 30-35%. BNP is elevated at 6060, however does not appear to be in acute exacerbation. He appears relatively euvolemic at this time and is asymptomatic. Continue 40 mg Lasix daily. Monitor renal function closely. Continue metoprolol Monitor intake and output. Weigh patient daily. <Lisa BrionesMarly Carolasandra PA-C - Last Filed: 07/15/20 13:46> (5) Supratherapeutic INR: Code(s): R79.1
[2020-07-15 13:14] LABS: Hematocrit 22.7 % (42.0-52.0); Hemoglobin 7.3 g/dL (14.0-18.0)
[2020-07-15 14:41] LABS: Myoglobin, Urine <27 mcg/L (<28)
[2020-07-15 16:04] LABS: Glucose Point of Care 174 (65-105)
[2020-07-15 16:08] LABS: Glucose Point of Care 140 (65-105)
--- NOTE | 2020-07-15 17:16 | WPDGIPROGNO ---
Progress Note: A&P Additional Plan GI Juan Daniel tracey Clifford 15 Jul 2020 No AP, N, V, BRBPR, melena. Neeta po VSS soft/NT Hct 23. INR 2.6 Chronic blood loss anemia with melena on Coumadin: - Concern for UGI>LGI source of bleed - Patient also has large LE hematoma - Hct is improving slowly with transfusion - More likely equilibration than active bleed - Follow H+H; transfuse prn - Correct INR with FFP - Avoid aspirin, NSAIDS and anticogulants if possible - EGD possibly tomorrow - IV PPI The procedure of upper endoscopy, its indications, alternatives of barium studies and risks including perforation, bleeding, infection, reaction to medication as well as the possible need for blood or surgery were discussed with the patient. Patient voices understanding, agrees to proceed and provides informed consent. Thanks, Subjective Date/time seen: 07/15/20 17:16 Objective Data Vital Signs Vital Signs: Vital Signs - 24 hr 07/14/20 20:07 07/14/20 21:35 07/15/20 06:00 Temperature 36.2 C L 36.3 C L Pulse Rate 72 82 66 Respiratory Rate 18 18 Blood Pressure 113/54 L 110/52 L Pulse Oximetry 100 92 07/15/20 07:55 07/15/20 08:18 07/15/20 08:29 Temperature 36.7 C 36.4 C Pulse Rate 89 80 87 Respiratory Rate 20 16 Blood Pressure 109/63 105/49 L Pulse Oximetry 99 99 07/15/20 12:34 07/15/20 12:52 07/15/20 13:50 Temperature 36.4 C 36.4 C L 36.6 C Pulse Rate 72 90 80 Respiratory Rate 18 18 16 Blood Pressure 117/57 L 127/59 L 105/47 L Pulse Oximetry 99 99 96 07/15/20 14:00 07/15/20 15:50 07/15/20 16:00 Temperature 36.6 C 36.4 C L 36.4 C L Pulse Rate 80 80 80 Respiratory Rate 16 16 16 Blood Pressure 105/47 L 121/71 121/71 Pulse Oximetry 96 96 96 07/15/20 16:12 Temperature 36.3 C L Pulse Rate 79 Respiratory Rate 14 Blood Pressure 116/49 L Pulse Oximetry 97 Intake/Output Intake/Output: Intake & Output 03/31/21 04/01/21 04/02/21 04/03/21 23:59 23:59 23:59 23:59 Intake Total 860 059 0658 Output Total 700 900 350 Balance 80 -600 1115 Meds/Results Medications: Active Medications Generic Name Dose Route Start Last Admin Trade Name Freq PRN Reason Stop Dose Admin Acetaminophen 1,000 mg 07/12/20 20:58 Acetaminophen 500 Mg Tablet PO Q6H PRN Mild Pain (1-3) Hydrocodone Bitart/Acetaminophen 1 tab 07/12/20 15:50 07/15/20 07:07 Hydrocodone/Acetaminophen (*Crx) 5-325 Mg Tablet PO 1 tab Q4H PRN Administration Pain Rated 4-6 Ascorbic Acid 500 mg 07/13/20 09:00 07/15/20 16:08 Ascorbic Acid 500 Mg Tablet PO 500 mg BID MARY Administration Atorvastatin Calcium 40 mg 07/12/20 21:10 07/14/20 20:06 Atorvastatin 40 Mg Tablet PO 40 mg HS MARY Administration Bisacodyl 10 mg 07/12/20 20:58 Bisacodyl 10 Mg Suppository RECTAL DAILY PRN Constipation Clotrimazole 1 applic 07/13/20 11:00 07/15/20 08:10 Betamethasone/Clotrimazole Cr 15 Gm Tube TOPICAL 1 applic Q12HR MARY Administration Cyclobenzaprine HCl 5 mg 07/12/20 20:58 Cyclobenzaprine Hcl 5 Mg Tablet PO TID PRN Muscle Spasm Dextrose 12.5 gm 07/12/20 21:00 Dextrose 50% 25 Gm/50 Ml Syringe IV PUSH PRN PRN Hypoglycemia Protocol Duloxetine HCl 30 mg 07/13/20 09:00 07/15/20 08:10 Duloxetine Hcl 30 Mg Capsule.Dr PO 30 mg DAILY MARY Administration Ferrous Sulfate 324 mg 07/13/20 08:00 07/15/20 08:12 Ferrous Sulfate 324 Mg Tablet PO 324 mg DAILY@0800 MARY Administration Finasteride 5 mg 07/13/20 09:00 07/15/20 08:10 Finasteride 5 Mg Tablet PO 5 mg DAILY MRAY Administration Furosemide 40 mg 07/13/20 09:00 07/15/20 08:10 Furosemide 40 Mg Tablet PO 40 mg DAILY MARY Administration Glucagon 1 mg 07/12/20 21:00 Glucagon For Inj 1 Mg Vial IM PRN PRN Hypoglycemia Protocol Glucose 15 gm 07/12/20 21:00 Glucose Oral Gel 15 Gm Of Glucse In 37.5 Gm Tube PO PRN IL
[2020-07-15 17:41] LABS: Hemoglobin 6.6 g/dL (14.0-18.0)
[2020-07-15 17:42] LABS: Hematocrit 20.5 % (42.0-52.0)
[2020-07-15 17:47] LABS: INR 1.9; Prothrombin Time 22.1 Seconds (11.1-14.7)
[2020-07-15] MEDS: EUCERIN CREAM 120 GM JAR 1 APPLIC TOPICAL (18:38)
[2020-07-15 19:33] LABS: SARS-CoV-2 RNA PCR Negative
[2020-07-15 20:09] LABS: Glucose Point of Care 172 (65-105)
[2020-07-15] MEDS: MELATONIN 3 MG TABLET 6 MG PO (20:39)
[2020-07-15] MEDS: ATORVASTATIN 40 MG TABLET PO (20:39)
[2020-07-15] MEDS: SENNOSIDES 8.6 MG TABLET PO (20:39)
[2020-07-15 23:36] LABS: Hemoglobin 7.4 g/dL (14.0-18.0)
[2020-07-16 05:09] LABS: Kappa\\Lambda Light Chains 5.57 (0.26-1.65); Lambda Light Chain 43.8 mg/L (5.7-26.3)
[2020-07-16 05:31] LABS: Eosinophils Absolute Auto 0.5 K/mm3 (0-0.3); Eosinophils Percent Auto 7.4 % (0-4.4); Hematocrit 22.1 % (42.0-52.0); Hemoglobin 7.2 g/dL (14.0-18.0); Immature Granulocyte Absolute 0.03 K/mm3 (0.00-0.031); Immature Granulocyte Percent A 0.5 % (0-0.5); Lymphocytes Percent Auto 8.1 % (18.3-44.2); Mean Corpuscular HGB Conc 32.6 g/dl (32-36); Mean Corpuscular Volume 89.1 fl (80-100); Mean Platelet Volume 11.6 fl (7.4-10.4); Monocytes Absolute Auto 0.9 K/mm3 (0.1-0.6); Monocytes Percent Auto 13.8 % (2.6-8.5); Neutrophils Absolute Auto 4.3 K/mm3 (1.3-6.7); Neutrophils Percent Auto 70.2 % (45.5-73.1); Platelet Count Result 110 k/mm3 (150-375); Red Blood Count 2.48 M/mm3 (4.6-6.20); Red Cell Distribution Width 15.8 % (11.5-14.5); White Blood Count 6.2 K/mm3 (4.5-10.0)
[2020-07-16 05:53] LABS: Alanine Aminotransferase 13 U/L (4-50); Albumin Level 3.5 g/dL (3.5-5.1); Alkaline Phosphatase 107 U/L (38-126); Anion Gap 6 mmol/L (8-16); Aspartate Amino Transferase 28 U/L (17-59); Bilirubin,Total 1.6 mg/dL (0.2-1.3); Blood Urea Nitrogen 61 mg/dL (9-20); Calcium 9.1 mg/dL (8.4-10.2); Carbon Dioxide 27 mmol/L (22-30); Chloride 102 mmol/L (98-107); Estimated CRCL calculation 25 ml/min; Estimated Glomerular Filt Rate 24; Glucose 130 mg/dL (75-110); Phosphorus 4.4 mg/dL (2.5-4.5); Potassium 3.9 mmol/L (3.4-5.0); Sodium 135 mmol/L (137-145)
[2020-07-16 06:00] VITALS: BP 120/60; PULSE 76; RESP 18; TEMP 36.3; O2SAT 96
[2020-07-16 06:02] LABS: Abnormal Protein Band 1 1.1 g/dL; Albumin 3.6 g/dL (3.8-4.8); Alpha 1 Globulin 0.5 g/dL (0.2-0.3); Alpha 2 Globulin 0.7 g/dL (0.5-0.9); Beta 1 Globulin 0.4 g/dL (0.4-0.6); Gamma Globulin 1.7 g/dL (0.8-1.7); Protein, Total 7.1 g/dL (6.1-8.1)
[2020-07-16 08:07] LABS: Glucose Point of Care 129 (65-105)
[2020-07-16 08:31] LABS: INR 1.7; Prothrombin Time 20.5 Seconds (11.1-14.7)
[2020-07-16] MEDS: DULoxetine HCL 30 MG CAPSULE.DR PO (09:03)
[2020-07-16] MEDS: PANTOPRAZOLE 40 MG TABLET PO ×2 (09:03→23:30)
[2020-07-16] MEDS: FINASTERIDE 5 MG TABLET PO (09:03)
[2020-07-16] MEDS: hydrOXYzine HCL 25 MG TABLET PO ×4 (09:03→23:28)
[2020-07-16] MEDS: MULTIVITAMINS THERAPEUTIC TAB (*BKC) 1 TABLET PO (09:03)
[2020-07-16] MEDS: FUROSEMIDE 40 MG TABLET PO (09:03)
[2020-07-16] MEDS: PREGABALIN (*CRX) 75 MG CAPSULE PO ×2 (09:03→17:12)
[2020-07-16 09:04] VITALS: PULSE 78
[2020-07-16] MEDS: FERROUS SULFATE 324 MG TABLET PO (09:04)
[2020-07-16] MEDS: EUCERIN CREAM 120 GM JAR 1 APPLIC TOPICAL (09:04)
[2020-07-16] MEDS: BETAMETHASONE/CLOTRIMAZOLE CR 15 GM TUBE 1 APPLIC TOPICAL ×2 (09:04→23:20)
[2020-07-16] MEDS: ASCORBIC ACID 500 MG TABLET PO ×2 (09:04→17:12)
[2020-07-16] MEDS: METOPROLOL TARTRATE 12.5 MG TABLET PO ×2 (09:04→23:28)
[2020-07-16] MEDS: polyethylene glycoL 3350 17 GM POWD.PACK PO (09:04)
[2020-07-16] MEDS: TAMSULOSIN HCL 0.4 MG CAPSULE PO (09:05)
[2020-07-16] MEDS: MORPHINE SULFATE (*CRX) 4 MG/ML INJ IV PUSH ×3 (09:39→17:12)
--- NOTE | 2020-07-16 12:01 | PM.CNGS ---
Assessment and Plan Assessment and plan (1) Hematoma of left lower extremity: Qualifiers: Encounter type: initial encounter Qualified Code(s): S80.12XA - Contusion of left lower leg, initial encounter Code(s): S80.12XA - Contusion of left lower leg, initial encounter Status: Acute Assessment and Plan: Hematoma is subcutaneous but has resulted in overlying skin necrosis with large eschar. This is an indication for hematoma evacuation. Plan to proceed to surgery tomorrow for this purpose. I will try to leave most of the eschar and will likely place drains as well as evacuate the hematoma. This should alleviate much of the edema, weeping, and ulceration associated with the left lower leg. (2) Chronic anticoagulation: Code(s): Z79.01 - medical terminologist (current) use of anticoagulants Status: Acute Assessment and Plan: Continue to hold on anticoagulation and monitor protime. Okay to proceed with INR of 1.7. (3) Acute on chronic blood loss anemia: Code(s): D62 - Acute posthemorrhagic anemia Status: Acute Assessment and Plan: Has been transfused and is being evaluated. (4) Acute on chronic renal failure: Qualifiers: Acute renal failure type: unspecified Chronic kidney disease stage: stage 4 (severe) Qualified Code(s): N17.9 - Acute kidney failure, unspecified; N18.4 - Chronic kidney disease, stage 4 (severe) Code(s): N17.9 - Acute kidney failure, unspecified; N18.9 - Chronic kidney disease, unspecified Status: Acute Assessment and Plan: Nephrology is following. (5) CHF (congestive heart failure): Qualifiers: Heart failure type: unspecified Heart failure chronicity: acute on chronic Qualified Code(s): I50.9 - Heart failure, unspecified Code(s): I50.9 - Heart failure, unspecified Status: Acute Assessment and Plan: Being managed by hospitalist group. History of Present Illness Consult details Consult date: 07/16/20 Reason for consult: wound care ( large hematoma left calf) Requesting physician: Lisa Kauffman PA-C Narrative: patient is a 74-year-old man who resides in a care center at [facility]. He takes Coumadin for atrial fibrillation. His INR was supratherapeutic at 3.4 on admission. He was also quite anemic and the source of anemia is not entirely clear. Gastroenterology has been seeing him and there are some plans for endoscopy. He had a bout of sepsis in October of 2019 and has had chronic kidney disease stage 4 with creatinine around 2.5 since then. He has a history of a poor ejection fraction and aortic valve replacement. He was in congestive heart failure on admission with BNP of 6000. The patient was sent to [facility] on the day of admission 07/12/2020 because of weeping, swelling, and pain in his left leg. I cannot find history of injury in the record. The patient does not recall any history of injury or how the leg came to be in this condition. CT scan of the left leg done yesterday shows a large subcutaneous hematoma. We are asked to see the patient regarding this hematoma and the significant changes and pain associated in his left lower leg. He did have a venous Doppler the day after admission, 07/13/2020, which was negative for DVT on either leg. His anticoagulation has been slow to reverse and he has received some FFP. INR today is 1.7 with a protime of 20.5. His H&H from just 30 minutes ago is 7.4 and 22.6. It appears he has received 4 units of packed cells and 1 FFP during this admission. Review of Systems Review of Systems: ROS unobtainable: Yes unobtainable due to medical condition ( Memory impairment, poor historian) and other ( systems reviewed by thorough review of the record.) Hematologic/Lymphatic: Hematologic/Lymphatic: Reports as per HPI, Reports easy bleeding and Reports easy bruising PMF Past Medical History Medical History (Reviewed 07/16/20 @ 12:16
[2020-07-16 12:08] LABS: Hematocrit 22.6 % (42.0-52.0); Hemoglobin 7.4 g/dL (14.0-18.0)
--- NOTE | 2020-07-16 13:01 | PM.IMPN ---
Progress Note: A&P Assessment and Plan (1) Acute blood loss anemia: Code(s): D62 - Acute posthemorrhagic anemia <Lisa Kauffman PA-C - Last Filed: 07/16/20 13:25> Status: Acute <Lisa AnaliMarly Kauffman PA-C - Last Filed: 07/16/20 13:25> Assessment and Plan: Acute on chronic normocytic anemia. He was recently hospitalized in May 2020 and underwent blood transfusion at that time. Hemoglobin and hematocrit are even lower at this hospitalization. He has required a total of 4 units pRBC. H&H stable at 7.4 today. Suspected source of anemia is from posterior left calf hematoma. Additional concern for GI component given reported episode of melena prior to presentation. Monitor H&H q6h. Transfuse as needed with hemoglobin threshold <7.0 Fecal occult blood test has been ordered. Awaiting specimen for collection Management of hematoma as described below. Gastroenterology has been consulted in light of reported melena and severe anemia but holding off for surgical evaluation of hematoma Warfarin is on hold. Continue Protonix daily <Lisa Kauffman PA-C - Last Filed: 07/16/20 13:25> (2) Hematoma of left lower extremity: Qualifiers: Encounter type: initial encounter Qualified Code(s): S80.12XA - Contusion of left lower leg, initial encounter <Lisa Kauffman PA-C - Last Filed: 07/16/20 13:25> Code(s): S80.12XA - Contusion of left lower leg, initial encounter <Lisa Kauffman PA-C - Last Filed: 07/16/20 13:25> Status: Acute <Lisa Kauffman PA-C - Last Filed: 07/16/20 13:25> Assessment and Plan: He has a large, dark purple hematoma of left posterior calf. He denies any recent trauma or injury. The area is exquisitely tender and leg is edematous. This is likely source for anemia. Left lower extremity CT demonstrates large subcutaneous hematoma. General surgery has been consulted and input is appreciated. Planning for surgical evacuation in the OR tomorrow. Analgesics available as needed for pain <Lisa Kauffman PA-C - Last Filed: 07/16/20 13:25> (3) Chronic anticoagulation: Code(s): Z79.01 - [facility] (current) use of anticoagulants <Lisa Kauffman PA-C - Last Filed: 07/16/20 13:25> Status: Acute <Lisa Cornelius SUNDAR Kauffman - Last Filed: 07/16/20 13:25> Assessment and Plan: He is maintained on chronic warfarin for atrial fibrillation and also has a mechanical aortic valve. INR goal is 2.0-3.0. INR was 3.4 at presentation. He received 1 unit FFP yesterday to bring down INR for procedure planning. INR is 1.7 today. Given acute bleeding, anticoagulation is on hold. Continue to monitor INR daily. <Lisa Kauffman PA-C - Last Filed: 07/16/20 13:25> (4) Acute on chronic renal failure: Qualifiers: Acute renal failure type: unspecified Chronic kidney disease stage: stage 3 (moderate) Chronic kidney disease stage 3 subtype: stage 3b (GFR 30-44) Qualified Code(s): N17.9 - Acute kidney failure, unspecified; N18.32 - Chronic kidney disease, stage 3b <Lisa Kauffman PA-C - Last Filed: 07/16/20 13:25> Code(s): N17.9 - Acute kidney failure, unspecified; N18.9 - Chronic kidney disease, unspecified <Lisa Kauffman PA-C - Last Filed: 07/16/20 13:25> Status: Acute <Lisa Kauffman PA-C - Last Filed: 07/16/20 13:25> Assessment and Plan: Baseline creatinine appears to be variable, around 2.0. Creatinine upon presentation is 2.7. He may have a prerenal component as he is requiring diuretics. Renal US showed cortical thinning without hydronephrosis. Creatinine is 2.6 today. Encourage adequate PO intake of fluids while monitoring volume status closely. Nephrology has been consulted and input is appreciated. <Lisa Kauffman PA-C - Last Filed: 07/16/20 13:25> (5) CHF (congestive heart failure): Qualifiers:
--- NOTE | 2020-07-16 13:06 | P.PNNP_ITS ---
Progress Note: A&P Assessment and Plan (1) ANDRADE (acute kidney injury): Code(s): N17.9 - Acute kidney failure, unspecified Status: Acute Assessment and Plan: * several possible issues/factors: - severe anemia - relative hypotension (100s systolic on presentation) - concurrent use of diuretics prior to admission - possible pre-renal factors * could be a component of disease progression as well * renal ultrasound without any acute issue -- findings c/w CKD * urine electrolytes demonstrated pre-renal azotemia * follow trend of repeat labs and UOP (2) Chronic kidney disease, stage IV (severe): Code(s): N18.4 - Chronic kidney disease, stage 4 (severe) Status: Chronic Assessment and Plan: * normal creatinine in 2019 * however, bout of ANDRADE due to sepsis in October 2019 and appears to have had CKD since that time * baseline creatinine ~ 1.6 - 2.1mg/dl since January 2020 * contributing factors include CHF with need for chronic diuretics, diabetes, age, and vascular disease (3) Anemia: Code(s): D64.9 - Anemia, unspecified Status: Acute Assessment and Plan: * due to a combination of previous hematuria, supratherapuetic INR, hematoma, low platelet count, and melena * PRBC transfusion per protocol * holding coumadin * Gastroenterololgy following -- waiting for INR to come down prior to any intervention/procedure * on PPI * follow H/H (4) Hematoma of left lower extremity: Qualifiers: Encounter type: initial encounter Qualified Code(s): S80.12XA - Contusion of left lower leg, initial encounter Code(s): S80.12XA - Contusion of left lower leg, initial encounter Status: Acute Assessment and Plan: * unclear duration * contributing to anemia(?) * wound care following * CT of left LE noted (5) Chronic venous insufficiency of lower extremity: Code(s): I87.2 - Venous insufficiency (chronic) (peripheral) Status: Chronic Assessment and Plan: * wound care consulted * pain control (6) CHF (congestive heart failure): Qualifiers: Heart failure chronicity: acute on chronic Heart failure type: unspecified Qualified Code(s): I50.9 - Heart failure, unspecified Code(s): I50.9 - Heart failure, unspecified Status: Acute Assessment and Plan: * appears stable * on oral lasix (likely helping maintain euvolemia given multiple PRBC transfusions during this admission) Will continue to follow. Subjective Date/time seen: 07/16/20 13:06 Still having issues with severe leg pain athough it is more procounced with movement or if touched; at rest and if immobile, no pain is elicited; no other acute issues voiced at this time; no events overnight or earlier this AM; eating and drinking fairly well. Exam Narrative: Exam Narrative: General: Elderly male in NAD Heart: normal S1 and S2; no rub Lungs: clear to auscultation Abdomen: soft, nontender, nondistended, positive bowel sounds Extremities: no cyanosis or clubbing; 1 - 2+ edema Skin: chronic venous stasis changes noted; decreased weeping from multiple wounds/scabs/blisters; left posterior calf hematoma which is still TTP Objective Data Vital Signs Vital Signs: Vital Signs Temp Pulse Resp BP Pulse Ox 07/16/20 09:04 78 07/16/20 06:00 36.3 C L 76 18 120/60 96 0
--- NOTE | 2020-07-16 13:06 | PM.PNNEP ---
Progress Note: A&P Assessment and Plan (1) ANDRADE (acute kidney injury): Code(s): N17.9 - Acute kidney failure, unspecified Status: Acute Assessment and Plan: several possible issues/factors: - severe anemia - relative hypotension (100s systolic on presentation) - concurrent use of diuretics prior to admission - possible pre-renal factors could be a component of disease progression as well renal ultrasound without any acute issue -- findings c/w CKD urine electrolytes demonstrated pre-renal azotemia follow trend of repeat labs and UOP (2) Chronic kidney disease, stage IV (severe): Code(s): N18.4 - Chronic kidney disease, stage 4 (severe) Status: Chronic Assessment and Plan: normal creatinine in 2019 however, bout of ANDRADE due to sepsis in October 2019 and appears to have had CKD since that time baseline creatinine ~ 1.6 - 2.1mg/dl since January 2020 contributing factors include CHF with need for chronic diuretics, diabetes, age, and vascular disease (3) Anemia: Code(s): D64.9 - Anemia, unspecified Status: Acute Assessment and Plan: due to a combination of previous hematuria, supratherapuetic INR, hematoma, low platelet count, and melena PRBC transfusion per protocol holding coumadin Gastroenterololgy following -- waiting for INR to come down prior to any intervention/procedure on PPI follow H/H (4) Hematoma of left lower extremity: Qualifiers: Encounter type: initial encounter Qualified Code(s): S80.12XA - Contusion of left lower leg, initial encounter Code(s): S80.12XA - Contusion of left lower leg, initial encounter Status: Acute Assessment and Plan: unclear duration contributing to anemia(?) wound care following CT of left LE noted (5) Chronic venous insufficiency of lower extremity: Code(s): I87.2 - Venous insufficiency (chronic) (peripheral) Status: Chronic Assessment and Plan: wound care consulted pain control (6) CHF (congestive heart failure): Qualifiers: Heart failure chronicity: acute on chronic Heart failure type: unspecified Qualified Code(s): I50.9 - Heart failure, unspecified Code(s): I50.9 - Heart failure, unspecified Status: Acute Assessment and Plan: appears stable on oral lasix (likely helping maintain euvolemia given multiple PRBC transfusions during this admission) Will continue to follow. Subjective Date/time seen: 07/16/20 13:06 Still having issues with severe leg pain athough it is more procounced with movement or if touched; at rest and if immobile, no pain is elicited; no other acute issues voiced at this time; no events overnight or earlier this AM; eating and drinking fairly well. Exam Narrative: Exam Narrative: General: Elderly male in NAD Heart: normal S1 and S2; no rub Lungs: clear to auscultation Abdomen: soft, nontender, nondistended, positive bowel sounds Extremities: no cyanosis or clubbing; 1 - 2+ edema Skin: chronic venous stasis changes noted; decreased weeping from multiple wounds/scabs/blisters; left posterior calf hematoma which is still TTP Objective Data Vital Signs Vital Signs: Vital Signs Temp Pulse Resp BP Pulse Ox 07/16/20 09:04 78 07/16/20 06:00 36.3 C L 76 18 120/60 96 07/15/20 21:15 36.8 C 92 18 137/78 97 07/15/20 20:51 36.8 C 97 18 137/78 97 07/15/20 20:38 81 07/15/20 19:51 36.8 C 105 H 18 141/60 H 100 07/15/20 18:52 37.1 C 81 18 128/58 L 99 07/15/20 18:35 36.7 C 83 18 141/63 H 97 07/15/20 16:12 36.3 C L 79 14 116/49 L 97 07/15/20 16:00 36.4 C L 80 16 121/71 96 07/15/20 15:50 36.4 C L 80 16 121/71 96 Intake/Output Intake/Output: Intake & Output 07/13/20 07/14/20 07/15/20 07/16/20 23:59 23:59 23:59 23:59 Intake Total 767 003 0797 390 Output Total 700
[2020-07-16 13:14] LABS: Glucose Point of Care 161 (65-105)
[2020-07-16] MEDS: HYDROcodone/acetaminophen (*CRX) 5-325 MG TABLET 1 TAB PO ×2 (13:23→23:18)
[2020-07-16 14:00] VITALS: BP 110/56; PULSE 81; RESP 16; TEMP 37; O2SAT 97
[2020-07-16] MEDS: MAGNESIUM CITRATE 300 ML BTL 296 ML PO (14:55)
--- NOTE | 2020-07-16 16:09 | WPDGIPROGNO ---
Progress Note: A&P Additional Plan GI Juan Daniel for Darrin 16 Jul 2020 No AP, N, V, BRBPR, melena. Neeta po VSS soft/NT Hct 23. Chronic blood loss anemia with melena on Coumadin: - Concern for UGI>LGI source of bleed - Patient also has large LE hematoma that is felt to be most acute source of blood loss - For OR in am for LE hematoma evacuation - EGD has been cancelled - Hct is improving slowly with transfusion - More likely equilibration than active bleed - Follow H+H; transfuse prn - Correct INR with FFP - Avoid aspirin, NSAIDS and anticogulants if possible - Can make PPI po No further GI recommendations at this time. Please call Dr. Clifford if EGD desired. Thanks, [facility] [phone] Subjective Date/time seen: 07/16/20 16:09 Objective Data Vital Signs Vital Signs: Vital Signs - 24 hr 07/15/20 16:12 07/15/20 18:35 07/15/20 18:52 Temperature 36.3 C L 36.7 C 37.1 C Pulse Rate 79 83 81 Respiratory Rate 14 18 18 Blood Pressure 116/49 L 141/63 H 128/58 L Pulse Oximetry 97 97 99 07/15/20 19:51 07/15/20 20:38 07/15/20 20:51 Temperature 36.8 C 36.8 C Pulse Rate 105 H 81 97 Respiratory Rate 18 18 Blood Pressure 141/60 H 137/78 Pulse Oximetry 100 97 07/15/20 21:15 07/16/20 06:00 07/16/20 09:04 Temperature 36.8 C 36.3 C L Pulse Rate 92 76 78 Respiratory Rate 18 18 Blood Pressure 137/78 120/60 Pulse Oximetry 97 96 07/16/20 14:00 Temperature 37.0 C Pulse Rate 81 Respiratory Rate 16 Blood Pressure 110/56 L Pulse Oximetry 97 Intake/Output Intake/Output: Intake & Output 07/13/20 07/14/20 07/15/20 07/16/20 23:59 23:59 23:59 23:59 Intake Total 884 308 5928 1190 Output Total 700 260 808 6787 Balance 80 -600 1415 90 Meds/Results Medications: Active Medications Generic Name Dose Route Start Last Admin Trade Name Freq PRN Reason Stop Dose Admin Acetaminophen 1,000 mg 07/12/20 20:58 Acetaminophen 500 Mg Tablet PO Q6H PRN Mild Pain (1-3) Hydrocodone Bitart/Acetaminophen 1 tab 07/12/20 15:50 07/16/20 13:23 Hydrocodone/Acetaminophen (*Crx) 5-325 Mg Tablet PO 1 tab Q4H PRN Administration Pain Rated 4-6 Ascorbic Acid 500 mg 07/13/20 09:00 07/16/20 09:04 Ascorbic Acid 500 Mg Tablet PO 500 mg BID MARY Administration Atorvastatin Calcium 40 mg 07/12/20 21:10 07/15/20 20:39 Atorvastatin 40 Mg Tablet PO 40 mg HS MARY Administration Bisacodyl 10 mg 07/12/20 20:58 Bisacodyl 10 Mg Suppository RECTAL DAILY PRN Constipation Clotrimazole 1 applic 07/13/20 11:00 07/16/20 09:04 Betamethasone/Clotrimazole Cr 15 Gm Tube TOPICAL 1 applic Q12HR MARY Administration Cyclobenzaprine HCl 5 mg 07/12/20 20:58 Cyclobenzaprine Hcl 5 Mg Tablet PO TID PRN Muscle Spasm Dextrose 12.5 gm 07/12/20 21:00 Dextrose 50% 25 Gm/50 Ml Syringe IV PUSH PRN PRN Hypoglycemia Protocol Duloxetine HCl 30 mg 07/13/20 09:00 07/16/20 09:03 Duloxetine Hcl 30 Mg Capsule.Dr PO 30 mg DAILY MARY Administration Ferrous Sulfate 324 mg 07/13/20 08:00 07/16/20 09:04 Ferrous Sulfate 324 Mg Tablet PO 324 mg DAILY@0800 MARY Administration Finasteride 5 mg 07/13/20 09:00 07/16/20 09:03 Finasteride 5 Mg Tablet PO 5 mg DAILY MARY Administration Furosemide 40 mg 07/13/20 09:00 07/16/20 09:03 Furosemide 40 Mg Tablet PO 40 mg DAILY MARY Administration Glucagon 1 mg 07/12/20 21:00 Glucagon For Inj 1 Mg Vial IM PRN PRN Hypoglycemia Protocol Glucose 15 gm 07/12/20 21:00 Glucose Oral Gel 15 Gm Of Glucse In 37.5 Gm Tube PO PRN PRN Hypoglycemia Protocol Hydroxyzine HCl 25 mg 07/12/20 21:10 07/16/20 13:23 Hydroxyzine Hcl 25 Mg Tablet PO 25 mg QID MARY Administration Dextrose 1,000 mls @ 100 mls/hr 07/12/20 21:00 Dextrose 5% 1,000 Ml IVPB PRN PRN Hypoglycemia Protocol Insulin Aspart 2 - 5 units 07/13/20 08:00
[2020-07-16 17:25] LABS: Glucose Point of Care 139 (65-105)
[2020-07-16 18:06] LABS: Hematocrit 24.1 % (42.0-52.0); Hemoglobin 7.7 g/dL (14.0-18.0)
[2020-07-16 21:15] LABS: IFOB Positive Control Positive; Immunochemical Fecal Occult Bl Positive (N)
[2020-07-16 21:28] VITALS: BP 109/53; PULSE 88; RESP 18; TEMP 36.4; O2SAT 99
[2020-07-16] MEDS: ATORVASTATIN 40 MG TABLET PO (23:27)
[2020-07-16] MEDS: MELATONIN 3 MG TABLET 6 MG PO (23:27)
[2020-07-16 23:28] VITALS: PULSE 88
[2020-07-16] MEDS: SENNOSIDES 8.6 MG TABLET PO (23:30)
[2020-07-17] VITALS (9 sets, daily range): BP systolic 106–125; BP diastolic 47–58; PULSE 64–100; RESP 16–18; TEMP 36.6–36.9; O2SAT 96–99
[2020-07-17 00:05] LABS: Glucose Point of Care 222 (65-105)
[2020-07-17 00:40] LABS: Hematocrit 23.2 % (42.0-52.0); Hemoglobin 7.6 g/dL (14.0-18.0)
[2020-07-17 05:35] LABS: Hemoglobin 7.1 g/dL (14.0-18.0); Mean Corpuscular HGB Conc 32.3 g/dl (32-36); Mean Corpuscular Hemoglobin 28.7 pg (26-34); Mean Corpuscular Volume 89.1 fl (80-100); Mean Platelet Volume 10.9 fl (7.4-10.4); Platelet Count Result 122 k/mm3 (150-375); Red Blood Count 2.47 M/mm3 (4.6-6.20); Red Cell Distribution Width 15.7 % (11.5-14.5); White Blood Count 6.1 K/mm3 (4.5-10.0)
[2020-07-17 05:47] LABS: Albumin Level 3.4 g/dL (3.5-5.1); Anion Gap 8 mmol/L (8-16); Blood Urea Nitrogen 63 mg/dL (9-20); Calcium 8.5 mg/dL (8.4-10.2); Carbon Dioxide 27 mmol/L (22-30); Chloride 101 mmol/L (98-107); Estimated CRCL calculation 28 ml/min; Estimated Glomerular Filt Rate 28; Glucose 149 mg/dL (75-110); Phosphorus 3.6 mg/dL (2.5-4.5); Potassium 3.9 mmol/L (3.4-5.0); Sodium 136 mmol/L (137-145)
[2020-07-17 06:00] LABS: INR 1.5; Prothrombin Time 18.8 Seconds (11.1-14.7)
[2020-07-17 08:20] LABS: Glucose Point of Care 151 (65-105)
--- NOTE | 2020-07-17 09:30 | P.PNNP_ITS ---
Progress Note: A&P Assessment and Plan (1) ANDRADE (acute kidney injury): Code(s): N17.9 - Acute kidney failure, unspecified Status: Acute Assessment and Plan: * several possible issues/factors: - severe anemia - relative hypotension (100s systolic on presentation)/prerenal issues - concurrent use of diuretics prior to admission -infection/inflammation from leg wounds? * could be a component of disease progression as well * renal ultrasound without any acute issue -- findings c/w CKD * urine electrolytes demonstrated pre-renal azotemia * His blood pressure is better. * His hemoglobin seems stable but low in the sevens. * He is on antibiotics. * His creatinine seems to be at its baseline. (2) Chronic kidney disease, stage IV (severe): Code(s): N18.4 - Chronic kidney disease, stage 4 (severe) Status: Chronic Assessment and Plan: * normal creatinine in 2019 * however, bout of ANDRADE due to sepsis in October 2019 and appears to have had CKD since that time * baseline creatinine ~ 1.6 - 2.1mg/dl since January 2020 * contributing factors include CHF with need for chronic diuretics, diabetes, age, and vascular disease (3) Anemia: Code(s): D64.9 - Anemia, unspecified Status: Acute Assessment and Plan: * due to a combination of previous hematuria, supratherapuetic INR, hematoma, low platelet count, and melena * PRBC transfusion per protocol * holding coumadin * Gastroenterololgy following -- waiting for INR to come down prior to any intervention/procedure. INR is now 1.5. * on PPI * following H/H. Stable in the sevens. (4) Hematoma of left lower extremity: Qualifiers: Encounter type: initial encounter Qualified Code(s): S80.12XA - Contusion of left lower leg, initial encounter Code(s): S80.12XA - Contusion of left lower leg, initial encounter Status: Acute Assessment and Plan: * unclear duration * contributing to anemia(?) * wound care following * CT of left LE done, showing the hematoma. (5) Chronic venous insufficiency of lower extremity: Code(s): I87.2 - Venous insufficiency (chronic) (peripheral) Status: Chronic Assessment and Plan: * wound care consulted * pain control (6) CHF (congestive heart failure): Qualifiers: Heart failure chronicity: acute on chronic Heart failure type: unspecified Qualified Code(s): I50.9 - Heart failure, unspecified Code(s): I50.9 - Heart failure, unspecified Status: Acute Assessment and Plan: * appears stable * Echo showed 30% EF and some enlargement of the right ventricle as well. * on oral lasix (likely helping maintain euvolemia given multiple PRBC transfusions during this admission) Subjective Date/time seen: 07/17/20 09:30 Interval history: Patient feels okay this morning. He is eating pretty well. No shortness of breath. Review of Systems Cardiovascular: Cardiovascular: Reports no additional cardiovascular complaints Respiratory: Respiratory: Reports no additional respiratory complaints Gastrointestinal: Gastrointestinal: Reports no additional gastrointestinal complaints Genitourinary: Genitourinary: Reports no additional male genitourinary complaints Exam Narrative: Exam Narrative: General: Elderly male in NAD Heart: normal S1 and S2; no rub or gallop Lungs: clear to auscultation Abdomen: soft, nontender, non
--- NOTE | 2020-07-17 09:30 | PM.PNNEP ---
Progress Note: A&P Assessment and Plan (1) ANDRADE (acute kidney injury): Code(s): N17.9 - Acute kidney failure, unspecified Status: Acute Assessment and Plan: several possible issues/factors: - severe anemia - relative hypotension (100s systolic on presentation)/prerenal issues - concurrent use of diuretics prior to admission -infection/inflammation from leg wounds? could be a component of disease progression as well renal ultrasound without any acute issue -- findings c/w CKD urine electrolytes demonstrated pre-renal azotemia His blood pressure is better. His hemoglobin seems stable but low in the sevens. He is on antibiotics. His creatinine seems to be at its baseline. (2) Chronic kidney disease, stage IV (severe): Code(s): N18.4 - Chronic kidney disease, stage 4 (severe) Status: Chronic Assessment and Plan: normal creatinine in 2019 however, bout of ANDRADE due to sepsis in October 2019 and appears to have had CKD since that time baseline creatinine ~ 1.6 - 2.1mg/dl since January 2020 contributing factors include CHF with need for chronic diuretics, diabetes, age, and vascular disease (3) Anemia: Code(s): D64.9 - Anemia, unspecified Status: Acute Assessment and Plan: due to a combination of previous hematuria, supratherapuetic INR, hematoma, low platelet count, and melena PRBC transfusion per protocol holding coumadin Gastroenterololgy following -- waiting for INR to come down prior to any intervention/procedure. INR is now 1.5. on PPI following H/H. Stable in the sevens. (4) Hematoma of left lower extremity: Qualifiers: Encounter type: initial encounter Qualified Code(s): S80.12XA - Contusion of left lower leg, initial encounter Code(s): S80.12XA - Contusion of left lower leg, initial encounter Status: Acute Assessment and Plan: unclear duration contributing to anemia(?) wound care following CT of left LE done, showing the hematoma. (5) Chronic venous insufficiency of lower extremity: Code(s): I87.2 - Venous insufficiency (chronic) (peripheral) Status: Chronic Assessment and Plan: wound care consulted pain control (6) CHF (congestive heart failure): Qualifiers: Heart failure chronicity: acute on chronic Heart failure type: unspecified Qualified Code(s): I50.9 - Heart failure, unspecified Code(s): I50.9 - Heart failure, unspecified Status: Acute Assessment and Plan: appears stable Echo showed 30% EF and some enlargement of the right ventricle as well. on oral lasix (likely helping maintain euvolemia given multiple PRBC transfusions during this admission) Subjective Date/time seen: 07/17/20 09:30 Interval history: Patient feels okay this morning. He is eating pretty well. No shortness of breath. Review of Systems Cardiovascular: Cardiovascular: Reports no additional cardiovascular complaints Respiratory: Respiratory: Reports no additional respiratory complaints Gastrointestinal: Gastrointestinal: Reports no additional gastrointestinal complaints Genitourinary: Genitourinary: Reports no additional male genitourinary complaints Exam Narrative: Exam Narrative: General: Elderly male in NAD Heart: normal S1 and S2; no rub or gallop Lungs: clear to auscultation Abdomen: soft, nontender, nondistended, positive bowel sounds Extremities: 1 - 2+ edema Skin: chronic venous stasis changes noted; decreased weeping from multiple wounds/scabs/blisters; left posterior calf hematoma. Objective Data Vital Signs Vital Signs: Vital Signs - 24 hr 07/16/20 14:00 07/16/20 21:28 07/16/20 23:28 Temperature 37.0 C 36.4 C Pulse Rate 81 88 88 Respiratory Rate 16 18 Blood Pressure 110/56 L 109/53 L Pulse Oximetry 97 99 07/17/20 06:00 Temperature 36.7 C Pulse Rate 100 Respirator
[2020-07-17] MEDS: FINASTERIDE 5 MG TABLET PO (09:44)
[2020-07-17] MEDS: METOPROLOL TARTRATE 12.5 MG TABLET PO ×2 (09:44→20:49)
[2020-07-17] MEDS: hydrOXYzine HCL 25 MG TABLET PO ×4 (09:44→20:49)
[2020-07-17] MEDS: TAMSULOSIN HCL 0.4 MG CAPSULE PO (09:44)
[2020-07-17] MEDS: PANTOPRAZOLE 40 MG TABLET PO ×2 (09:44→20:51)
[2020-07-17] MEDS: MULTIVITAMINS THERAPEUTIC TAB (*BKC) 1 TABLET PO (09:44)
[2020-07-17] MEDS: DULoxetine HCL 30 MG CAPSULE.DR PO (09:44)
[2020-07-17] MEDS: FERROUS SULFATE 324 MG TABLET PO (09:44)
[2020-07-17] MEDS: FUROSEMIDE 40 MG TABLET PO (09:44)
[2020-07-17] MEDS: EUCERIN CREAM 120 GM JAR 1 APPLIC TOPICAL (09:45)
[2020-07-17] MEDS: ASCORBIC ACID 500 MG TABLET PO ×2 (09:45→17:12)
[2020-07-17] MEDS: PREGABALIN (*CRX) 75 MG CAPSULE PO ×2 (09:47→17:10)
[2020-07-17] MEDS: HYDROcodone/acetaminophen (*CRX) 5-325 MG TABLET 1 TAB PO ×2 (09:49→15:53)
[2020-07-17] MEDS: BETAMETHASONE/CLOTRIMAZOLE CR 15 GM TUBE 1 APPLIC TOPICAL ×2 (10:10→20:51)
--- NOTE | 2020-07-17 11:33 | PM.IMPN ---
Progress Note: A&P Assessment and Plan (1) Acute blood loss anemia: Code(s): D62 - Acute posthemorrhagic anemia Status: Acute Assessment and Plan: Acute on chronic normocytic anemia. He was recently hospitalized in May 2020 and underwent blood transfusion at that time. Hemoglobin and hematocrit are even lower at this hospitalization. He has required a total of 4 units pRBC. H&H continues to slowly decline. Suspected source of anemia is from posterior left calf hematoma. Additional concern for GI component given reported episode of melena prior to presentation and positive fecal occult blood test. Hemoglobin 6.9 this afternoon. Will transfuse 1 unit pRBC. Monitor H&H closely. Repeat this this evening. Transfuse as needed with hemoglobin threshold <7.0 Management of hematoma as described below. Gastroenterology has been consulted in light of occult blood in stool but holding off for surgical evaluation of hematoma Warfarin is on hold. (2) Hematoma of left lower extremity: Qualifiers: Encounter type: initial encounter Qualified Code(s): S80.12XA - Contusion of left lower leg, initial encounter Code(s): S80.12XA - Contusion of left lower leg, initial encounter Status: Acute Assessment and Plan: He has a large, dark purple hematoma of left posterior calf. He denies any recent trauma or injury. The area is exquisitely tender and leg is edematous. This is likely source for anemia. Left lower extremity CT demonstrates large subcutaneous hematoma. General surgery has been consulted and input is appreciated. Planning for surgical evacuation in the OR tomorrow. Previously planned for today but rescheduled due to scheduling constraints. Analgesics available as needed for pain (3) Occult blood in stools: Code(s): R19.5 - Other fecal abnormalities Status: Acute Assessment and Plan: Reports of melena prior to presentation. Fecal occult blood test positive on 07/16/2020. 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 INR goal is 2.0-3.0. INR was 3.4 at presentation. He received 1 unit FFP on 07/15 to bring down INR for procedure planning. INR is 1.5 today. Given acute bleeding, anticoagulation is on hold. In light of mechanical valve, will consider heparin drip if H&H stabilizes. At this time, hemoglobin continues to decline, therefore will hold off on this. Continue to monitor INR daily. (5) Acute on chronic renal failure: Qualifiers: Acute renal failure type: unspecified Chronic kidney disease stage: stage 3 (moderate) Chronic kidney disease stage 3 subtype: stage 3b (GFR 30-44) Qualified Code(s): N17.9 - Acute kidney failure, unspecified; N18.32 - Chronic kidney disease, stage 3b Code(s): N17.9 - Acute kidney failure, unspecified; N18.9 - Chronic kidney disease, unspecified Status: Acute Assessment and Plan: Baseline creatinine appears to be variable, around 2.0. Creatinine upon presentation is 2.7. Suspect acute injury is multifactorial when considering diuresis, relative hypotension, and profound anemia. Renal US showed cortical thinning without hydronephrosis. Creatinine is 2.3 today. Encourage adequate PO intake of fluids while monitoring volume status closely. Nephrology has been consulted and input is appreciated. (6) CHF (congestive heart failure): Qualifiers: Heart failure chronicity: acute on chronic Heart failure type: unspecified Qualified Code(s)
[2020-07-17 12:04] LABS: Glucose Point of Care 166 (65-105)
[2020-07-17 12:35] LABS: Hematocrit 21.2 % (42.0-52.0)
[2020-07-17 12:39] LABS: Hemoglobin 6.9 g/dL (14.0-18.0)
[2020-07-17] MEDS: SODIUM CHLORIDE 0.9% IV 250 ML 30 ML IV CONT (15:55)
[2020-07-17 16:55] LABS: Chloride Rand Ur 26 mmol/L (32-290); Chloride/Creatinine Rand Ur 33 (23-275); Creatinine Random Urine 78 mg/dL (20-320)
[2020-07-17] MEDS: MORPHINE SULFATE (*CRX) 4 MG/ML INJ IV PUSH (17:12)
--- NOTE | 2020-07-17 17:17 | WPDANESEPP ---
Anes - Eval Pre Procedure Procedure: Operation Date: 07/18/20 10:00 Proposed Procedures p Evacuation of Left Calf Hematoma(Left) - Joel Lamar MD Date/Time: 07/17/20 17:17 Pre Op Diagnosis: Acute on chronic renal failure, CHF, anemia Patient Data Age: 74 Gender: M Height: 5 ft 11 in Weight: 78 kg Last Vital Signs Temp 97.8 F 07/17/20 16:20 Pulse 75 07/17/20 16:20 Resp 16 07/17/20 16:20 BP 125/58 L 07/17/20 16:20 Pulse Ox 98 07/17/20 16:20 Allergies Allergy/AdvReac Type Severity Reaction Status Date / Time zolpidem Allergy Unknown Verified 07/12/20 17:37 gabapentin AdvReac Shakiness Verified 07/12/20 17:37 Home Medications Medication Instructions Recorded Confirmed Type multivitamin 1 tablet PO DAILY 05/26/20 07/12/20 History Arginaid 1 g PO BID #60 ea 05/29/20 07/12/20 Rx acetaminophen 1,000 mg PO Q6H PRN #60 tablet 05/29/20 07/12/20 Rx ascorbic acid (vitamin C) [Vitamin 500 mg PO BID #60 tablet 05/29/20 07/12/20 Rx C] atorvastatin 40 mg PO HS #30 tablet 05/29/20 07/12/20 Rx duloxetine 30 mg PO DAILY #30 cap 05/29/20 07/12/20 Rx finasteride 5 mg PO DAILY #30 tablet 05/29/20 07/12/20 Rx furosemide 40 mg PO DAILY #30 tablet 05/29/20 07/12/20 Rx magnesium hydroxide [Milk of 400 mg PO DAILY PRN #30 ml 05/29/20 07/12/20 Rx Magnesia] melatonin 6 mg PO HS #30 tablet 05/29/20 07/12/20 Rx pantoprazole 40 mg PO DAILY #30 tablet 05/29/20 07/12/20 Rx tamsulosin 0.4 mg PO DAILY #30 cap 05/29/20 07/12/20 Rx trazodone 25 mg PO HS #30 tablet 05/29/20 07/12/20 Rx warfarin 2.5 mg PO DAILY #30 tablet 05/29/20 07/12/20 Rx oxycodone 5 mg tablet 5 mg PO Q6H #120 tablet 06/22/20 07/12/20 Rx pregabalin 75 mg capsule 75 mg PO BID #60 cap 07/04/20 07/12/20 Rx Citroma 296 ml PO DAILY PRN 07/12/20 07/12/20 History Miralax 17 g PO DAILY 07/12/20 07/12/20 History bisacodyl 10 mg RECTAL DAILY PRN 07/12/20 07/12/20 History cyclobenzaprine 5 mg PO TID PRN 07/12/20 07/12/20 History ferrous sulfate 325 mg PO DAILY@0800 07/12/20 07/12/20 History hydroxyzine HCl 25 mg PO QID 07/12/20 07/12/20 History metoprolol tartrate 12.5 mg PO Q12HR 07/12/20 07/12/20 History oxycodone 10 mg PO Q4H PRN 07/12/20 07/12/20 History sennosides [Senna Lax] 8.6 mg PO HS 07/12/20 07/12/20 History sodium phosphates [Fleet Enema] 118 ml RECTAL DAILY PRN 07/12/20 07/12/20 History Laboratory Tests 07/12/20 07/12/20 07/15/20 15:07 20:40 23:17 WBC RBC Hgb Hct MCV MCH MCHC RDW Plt Count MPV PT INR Sodium Potassium Chloride Carbon Dioxide Anion Gap BUN Creatinine Estim Creat Clear Calc Estimated GFR Glucose POC Capillary Glucose Calcium Phosphorus Albumin Ur Random Creatinine 78 mg/dL mg/dL (20-320) Ur Random Chloride 26 mmol/L L mmol/L (32-290) U Random Chloride/Creat 33 (23-275) Stl Occult Blood (IFOB) Blood Type O Positive Antibody Screen Positive Antibody Identification Anti-Kpa Antigen Identification TNP СВЕТЛАНА, IgG Interpret Positive СВЕТЛАНА, Poly Interpret Positive СВЕТЛАНА, Complement Interp Negative Crossmatch See Detail Enhanced Crossmatch See Detail See Detail 07/16/20 07/16/20 07/16/20 17:20 18:01 19:09 WBC RBC Hgb 7.7 g/dL L g/dL (14.0-18.0) Hct 24.1 % L % (42.0-52.0) MCV MCH MCHC RDW Plt Count MPV PT INR Sodium Potassium Chloride Carbon Dioxide Anion Gap
[2020-07-17 17:57] LABS: Glucose Point of Care 168 (65-105)
[2020-07-17] MEDS: MELATONIN 3 MG TABLET 6 MG PO (20:48)
[2020-07-17] MEDS: ATORVASTATIN 40 MG TABLET PO (20:49)
[2020-07-17 20:59] LABS: Glucose Point of Care 276 (65-105)
[2020-07-18] VITALS (18 sets, daily range): BP systolic 113–133; BP diastolic 44–70; PULSE 56–93; RESP 12–20; TEMP 36.1–37.2; O2SAT 96–100
[2020-07-18] MEDS: MORPHINE SULFATE (*CRX) 4 MG/ML INJ IV PUSH (00:27)
[2020-07-18 00:51] LABS: Hematocrit 23.3 % (42.0-52.0); Hemoglobin 7.5 g/dL (14.0-18.0)
[2020-07-18 05:39] LABS: Hematocrit 22.3 % (42.0-52.0); Hemoglobin 7.2 g/dL (14.0-18.0); Mean Corpuscular HGB Conc 32.3 g/dl (32-36); Mean Corpuscular Hemoglobin 28.2 pg (26-34); Mean Corpuscular Volume 87.5 fl (80-100); Mean Platelet Volume 11.1 fl (7.4-10.4); Platelet Count Result 129 k/mm3 (150-375); Red Blood Count 2.55 M/mm3 (4.6-6.20); Red Cell Distribution Width 15.7 % (11.5-14.5); White Blood Count 6.5 K/mm3 (4.5-10.0)
[2020-07-18 05:47] LABS: INR 1.4; Prothrombin Time 17.8 Seconds (11.1-14.7)
[2020-07-18 05:48] LABS: Albumin Level 3.3 g/dL (3.5-5.1); Anion Gap 6 mmol/L (8-16); Blood Urea Nitrogen 58 mg/dL (9-20); Calcium 8.6 mg/dL (8.4-10.2); Carbon Dioxide 28 mmol/L (22-30); Chloride 104 mmol/L (98-107); Estimated CRCL calculation 27 ml/min; Estimated Glomerular Filt Rate 27; Glucose 162 mg/dL (75-110); Phosphorus 3.5 mg/dL (2.5-4.5); Potassium 4.2 mmol/L (3.4-5.0); Sodium 138 mmol/L (137-145)
--- NOTE | 2020-07-18 08:10 | WPDHPUPDATE1 ---
History and Physical Update Update Date/Time: 07/18/20 08:10 History and Physical has been reviewed, including an updated exam of the patient. There are NO changes in the patient's condition. Risks, benefits, and alternatives have been discussed and questions answered. Patient agrees to proceed with procedure.
[2020-07-18 08:17] LABS: Glucose Point of Care 170 (65-105)
[2020-07-18] MEDS: METOPROLOL TARTRATE 12.5 MG TABLET PO ×2 (08:28→20:34)
--- NOTE | 2020-07-18 09:01 | P.PNNP_ITS ---
Progress Note: A&P Assessment and Plan (1) ANDRADE (acute kidney injury): Code(s): N17.9 - Acute kidney failure, unspecified Status: Acute Assessment and Plan: * several possible issues/factors: - severe anemia - relative hypotension (100s systolic on presentation)/prerenal issues - concurrent use of diuretics prior to admission -infection/inflammation from leg wounds? * could be a component of disease progression as well * renal ultrasound without any acute issue -- findings c/w CKD * urine electrolytes demonstrated pre-renal azotemia * His creatinine has improved and is close to baseline. Hopefully will improve further with resolution of his leg wounds. (2) Chronic kidney disease, stage IV (severe): Code(s): N18.4 - Chronic kidney disease, stage 4 (severe) Status: Chronic Assessment and Plan: * normal creatinine in 2019 * however, bout of ANDRADE due to sepsis in October 2019 and appears to have had CKD since that time * baseline creatinine ~ 1.6 - 2.1mg/dl since January 2020 * contributing factors include CHF with need for chronic diuretics, diabetes, age, and vascular disease (3) Anemia: Code(s): D64.9 - Anemia, unspecified Status: Acute Assessment and Plan: * due to a combination of previous hematuria, supratherapuetic INR, hematoma, low platelet count, and melena * PRBC transfusion per protocol * holding coumadin * Gastroenterololgy following -- waiting for INR to come down prior to any intervention/procedure. INR is now 1.5. * on PPI * . If not elevated then will start Epogen. * following H/H. Stable in the sevens. (4) Hematoma of left lower extremity: Qualifiers: Encounter type: initial encounter Qualified Code(s): S80.12XA - Contusion of left lower leg, initial encounter Code(s): S80.12XA - Contusion of left lower leg, initial encounter Status: Acute Assessment and Plan: * unclear duration * contributing to anemia(?) * wound care following * CT of left LE done, showing the hematoma. (5) Chronic venous insufficiency of lower extremity: Code(s): I87.2 - Venous insufficiency (chronic) (peripheral) Status: Chronic Assessment and Plan: * wound care consulted * pain control (6) CHF (congestive heart failure): Qualifiers: Heart failure chronicity: acute on chronic Heart failure type: unspecified Qualified Code(s): I50.9 - Heart failure, unspecified Code(s): I50.9 - Heart failure, unspecified Status: Acute Assessment and Plan: * appears stable * Echo showed 30% EF and some enlargement of the right ventricle as well. * on oral lasix (likely helping maintain euvolemia given multiple PRBC transfusions during this admission) Subjective Date/time seen: 07/18/20 09:01 Interval history: Patient feels okay this morning. NPO for hematoma drainage of the left calf. No shortness of breath. Review of Systems Cardiovascular: Cardiovascular: Reports no additional cardiovascular complaints Respiratory: Respiratory: Reports no additional respiratory complaints Gastrointestinal: Gastrointestinal: Reports no additional gastrointestinal complaints Genitourinary: Genitourinary: Reports no additional male genitourinary complaints Exam Narrative: Exam Narrative: General: Elderly male in NAD Heart: normal S1 and S2; no rub or gallop Lungs: clear bilaterally
--- NOTE | 2020-07-18 09:01 | PM.PNNEP ---
Progress Note: A&P Assessment and Plan (1) ANDRADE (acute kidney injury): Code(s): N17.9 - Acute kidney failure, unspecified Status: Acute Assessment and Plan: several possible issues/factors: - severe anemia - relative hypotension (100s systolic on presentation)/prerenal issues - concurrent use of diuretics prior to admission -infection/inflammation from leg wounds? could be a component of disease progression as well renal ultrasound without any acute issue -- findings c/w CKD urine electrolytes demonstrated pre-renal azotemia His creatinine has improved and is close to baseline. Hopefully will improve further with resolution of his leg wounds. (2) Chronic kidney disease, stage IV (severe): Code(s): N18.4 - Chronic kidney disease, stage 4 (severe) Status: Chronic Assessment and Plan: normal creatinine in 2019 however, bout of ANDRADE due to sepsis in October 2019 and appears to have had CKD since that time baseline creatinine ~ 1.6 - 2.1mg/dl since January 2020 contributing factors include CHF with need for chronic diuretics, diabetes, age, and vascular disease (3) Anemia: Code(s): D64.9 - Anemia, unspecified Status: Acute Assessment and Plan: due to a combination of previous hematuria, supratherapuetic INR, hematoma, low platelet count, and melena PRBC transfusion per protocol holding coumadin Gastroenterololgy following -- waiting for INR to come down prior to any intervention/procedure. INR is now 1.5. on PPI . If not elevated then will start Epogen. following H/H. Stable in the sevens. (4) Hematoma of left lower extremity: Qualifiers: Encounter type: initial encounter Qualified Code(s): S80.12XA - Contusion of left lower leg, initial encounter Code(s): S80.12XA - Contusion of left lower leg, initial encounter Status: Acute Assessment and Plan: unclear duration contributing to anemia(?) wound care following CT of left LE done, showing the hematoma. (5) Chronic venous insufficiency of lower extremity: Code(s): I87.2 - Venous insufficiency (chronic) (peripheral) Status: Chronic Assessment and Plan: wound care consulted pain control (6) CHF (congestive heart failure): Qualifiers: Heart failure chronicity: acute on chronic Heart failure type: unspecified Qualified Code(s): I50.9 - Heart failure, unspecified Code(s): I50.9 - Heart failure, unspecified Status: Acute Assessment and Plan: appears stable Echo showed 30% EF and some enlargement of the right ventricle as well. on oral lasix (likely helping maintain euvolemia given multiple PRBC transfusions during this admission) Subjective Date/time seen: 07/18/20 09:01 Interval history: Patient feels okay this morning. NPO for hematoma drainage of the left calf. No shortness of breath. Review of Systems Cardiovascular: Cardiovascular: Reports no additional cardiovascular complaints Respiratory: Respiratory: Reports no additional respiratory complaints Gastrointestinal: Gastrointestinal: Reports no additional gastrointestinal complaints Genitourinary: Genitourinary: Reports no additional male genitourinary complaints Exam Narrative: Exam Narrative: General: Elderly male in NAD Heart: normal S1 and S2; no rub or gallop Lungs: clear bilaterally Abdomen: soft, nontender, nondistended, positive bowel sounds Extremities: 1 - 2+ edema and no cyanosis Skin: chronic venous stasis changes noted; decreased weeping from multiple wounds/scabs/blisters; left posterior calf hematoma. Objective Data Vital Signs Vital Signs: Vital Signs - 24 hr 07/17/20 09:44 07/17/20 10:00 07/17/20 14:00 Temperature 36.9 C 36.6 C Pulse Rate 100 75 64 Respiratory Rate 16 16 Blood Pressure 125/52 L 111/52 L Pulse Oximetry 99 99 07/17/20 16:04 0
[2020-07-18] MEDS: LACTATED RINGERS 1,000 ML 30 ML IV CONT (09:03)
--- NOTE | 2020-07-18 09:05 | P.PNAN_ITS ---
Anes - Eval Final PreProcedure Day of Procedure 07/18/20 09:05 Patient weight: normal Heart: irregular rhythm Lungs: clear to auscultation Airway: Mallampati scale class II Neurological: alert and oriented (X 1) Last oral intake: >/= 8 hours ASA classification: IV Emergent: no Anesthetic plan: proceed Anesthesia type and monitoring: general GIVS and standard monitoring Informed Consent: The patient's anesthetic plan and its attendant risks and be nefits were discussed with the patient/family/POA. Questions were solicited and answers provided to the satisfaction of the patient/family/POA.
[2020-07-18 09:16] LABS: Immature Reticulocyte Fraction 19.1 % (3.0-15.9); Reticulocyte Hemoglobin Conten 25.5 pg (28.2-35.7); Reticulocyte Percent 1.76 % (0.7-4.3); Reticulocytes Absolute 0.05 B/L (32.2-175.7)
[2020-07-18] MEDS: ceFAZolin 2 GM/D5W 50 ML 2 GM/50 ML BAG IVPB (09:49)
--- NOTE | 2020-07-18 11:26 | P.OP_ITS ---
Procedure Note - Detailed Date of procedure: 07/18/20 Pre-op diagnosis: Large hematoma left lower extremity with necrosis Left lower extremity large hematoma with necrosis Post-op diagnosis: same Procedure performed: Excisional debridement skin and subcutaneous tissue 23 cm x 8 cm (204 cm2), evacuation left lower extremity hematoma, placement wound VAC left lower extremity Description of procedure: The patient was taken to surgery and induced into general anesthesia per laryngeal mask airway. He was turned so he was on his right side with the left posterior lower extremity exposed. The left lower leg from the knee down was prepped and draped. There was a large area of eschar overlying the hematoma. It had started to separate in the upper medial aspect. I bluntly opened this a bit further and found some clot. I inserted the Yankauer sucker here and evacuated some clot. However much of the clot had started organized and even though I irrigated the hematoma, it was not evacuating through this 1 small area. I tried to insert my finger and evacuate a bit more but the necrotic overlying eschar began to separate. It was obvious that the eschar would have to be excisionally debrided. I went ahead than and sharply excised the necrotic skin and subcutaneous overlying the hematoma. This was completely removed and sent to pathology in formalin. There was extensive hematoma still in the wound. I manually evacuated this and it appeared to be at least 500 and probably 700 cc of clot. Once the majority of the clot was removed, I irrigated the wound thoroughly with saline. Additional clot was e vacuated and any debris was removed. There was little or no bleeding. I did cauterize a couple of small areas on the gastrocnemius muscle bed. The resulting wound was measured with the length being 23 cm, the average with was 8 cm, the depth was 1.[address] Copeland to come to the room. We discussed the wound. We agreed that wound VAC therapy would be best for now and probably some skin coverage would be appropriate later. Priscilla from the wound specialty nurse clinic came to the operating room than as well. With her assistance, we placed a wound VAC with black gauze. This worked well. It was placed to continuous suction at 125 cm water. From there we returned the patient to a supine position. He was awakened and taken to recovery in good condition. Sponge and needle counts were correct x2. Anesthesia: GLMA Surgeon: Joel Lamar MD Holistic Specialist: Argenis GILLETTE Estimated blood loss (mL): 5 Drains: Yes (Wound VAC left lower extremity) Pathology: yes (Necrotic skin and subcu) Complications: None Condition: stable Disposition: PACU Findings: Extensive subcu hematoma with necrotic overlying skin. Resultant large wound goes down to the gastrocnemius muscle. Wound VAC placed over entire left lower extremity wound.
--- NOTE | 2020-07-18 12:20 | WPDCN ---
Assessment and Plan Assessment and plan (1) Open wound of left lower extremity: Code(s): S81.802A - Unspecified open wound, left lower leg, initial encounter Status: Acute Assessment and Plan: Wound VAC has been placed. Will re-evaluate. Anticipate allowing to heal by secondary intention verses grafting. Will follow. Appreciate the consult to taken. (2) Hematoma of left lower extremity: Qualifiers: Encounter type: initial encounter Qualified Code(s): S80.12XA - Contusion of left lower leg, initial encounter Code(s): S80.12XA - Contusion of left lower leg, initial encounter Status: Acute HPI Data of Consult Date/Time: 07/18/20 11:00 Requesting Physician: Joel Lamar MD Primary Care Provider: Leo Avery, Consult Narrative Narrative: Alton Rock is a 74 year old male who resides in a care center at [facility]. He takes Coumadin for atrial fibrillation. His INR was supratherapeutic at 3.4 on admission. He was sent to [facility] on the day of admission 07/12/2020 because of weeping, swelling, and pain in his left leg. Radiograph left lower extremity: IMPRESSION: 1. Mild left knee osteoarthritis. 2. Small left knee joint effusion. Ultrasound left lower extremity: IMPRESSION: 1. No deep venous thrombosis in either lower limb. Veins at the left calf were unable to be visualized due to extreme pain at this location. Left Lower extremity CT: IMPRESSION: 1. Large subcutaneous hematoma in the calf. He was taken to the operating room today (07/18/2020) and I was called to the OR to evaluate. Dr. Lamar completed: Evacuation of extensive subcutaneous hematoma with necrotic overlying skin. Resultant large wound goes down to the gastrocnemius muscle. Wound VAC placed over entire left lower extremity wound. [facility] Past Medical History Medical History Acute on chronic blood loss anemia Acute on chronic renal failure Aortic insufficiency Atrial fibrillation BPH (benign prostatic hyperplasia) CHF (congestive heart failure) Chronic indwelling Ramirez catheter Coronary artery disease DM2 (diabetes mellitus, type 2) GI bleed Gout Gout Hyperlipidemia Hypertension Hypertension Leg ulcer Right thigh Melena Osteomyelitis Pneumonia Type 2 diabetes mellitus Urinary retention Surgical History Surgical History Aortic valve replaced Hx of CABG S/P CABG x 1 Family History Family History Unknown Family history unknown Sibling Prostate carcinoma Social History Social History Social History: The patient lives in a care facility and his lives at home. He is a full code. He tells me he has never had any children. 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 Smoking status: Never smoker Tobacco type: cigars Second hand tobacco smoke exposure: No Additional smoking assessment comments: OCCASIONAl CIGAR PER PT. LAST ONE MORE THAN 1 YR AGO Alcohol intake: never Substance use: never Substance use type: does not use Gender identity (if verbalized by the patient): Male Sexual Orientation (if Verbalized by the Patient): Straight or Heterosexual Spiritual care concerns: No Meds Home Medications and Allergies Home Medications Medication Instructions Recorded Confirmed Type multivitamin 1 tablet PO DAILY 05/26/20 07/12/20 History Arginaid 1 g PO BID #60 ea 05/29/20 07/12/20 Rx acetaminophen 1,000 mg PO Q6H PRN #60 tablet 05/29/20 07/12/20 Rx ascorbic acid (vitamin C) [Vitamin 500 mg PO BID #60 tablet 05/29/20 07/12/20 Rx C] atorvastatin 40 mg PO HS #30 tablet 05/29/20 07/12/20 Rx duloxetine 30 mg PO DAILY #30 cap 05/29/20 07/12/20 Rx finasteride 5 mg PO DAILY
--- NOTE | 2020-07-18 12:34 | PC.NURSE ---
pt returned from surgery at 1205.
[2020-07-18] MEDS: FERROUS SULFATE 324 MG TABLET PO (12:50)
[2020-07-18] MEDS: ASCORBIC ACID 500 MG TABLET PO ×2 (12:51→18:47)
[2020-07-18] MEDS: DULoxetine HCL 30 MG CAPSULE.DR PO (12:53)
[2020-07-18] MEDS: FINASTERIDE 5 MG TABLET PO (12:56)
[2020-07-18] MEDS: FUROSEMIDE 40 MG TABLET PO (12:59)
[2020-07-18] MEDS: hydrOXYzine HCL 25 MG TABLET PO ×3 (13:01→20:34)
[2020-07-18] MEDS: MULTIVITAMINS THERAPEUTIC TAB (*BKC) 1 TABLET PO (13:04)
[2020-07-18] MEDS: PANTOPRAZOLE 40 MG TABLET PO ×2 (13:05→20:35)
[2020-07-18] MEDS: polyethylene glycoL 3350 17 GM POWD.PACK PO (13:06)
[2020-07-18 13:07] LABS: Glucose Point of Care 149 (65-105)
[2020-07-18] MEDS: PREGABALIN (*CRX) 75 MG CAPSULE PO ×2 (13:07→18:47)
[2020-07-18] MEDS: TAMSULOSIN HCL 0.4 MG CAPSULE PO (13:09)
[2020-07-18] MEDS: LACTATED RINGERS 1,000 ML 80 ML IV CONT (13:14)
[2020-07-18] MEDS: HYDROcodone/acetaminophen (*CRX) 7.5-325 MG TABLET 1 TAB PO (14:03)
[2020-07-18] MEDS: BETAMETHASONE/CLOTRIMAZOLE CR 15 GM TUBE 1 APPLIC TOPICAL ×2 (14:05→20:36)
--- NOTE | 2020-07-18 15:22 | PC.NURSE ---
On 07/18/20, the student, [MYA COLEMAN], provided care and completed [facility] documentation on this patient. I have reviewed the student's documentation and agree with the findings.
--- NOTE | 2020-07-18 15:34 | PM.IMPN ---
Progress Note: A&P Assessment and Plan (1) Acute blood loss anemia: Code(s): D62 - Acute posthemorrhagic anemia Status: Acute Assessment and Plan: Acute on chronic normocytic anemia. He was recently hospitalized in May 2020 and underwent blood transfusion at that time. Hemoglobin and hematocrit are even lower at this hospitalization. He has required a total of 4 units pRBC. H&H continues to slowly decline. Suspected source of anemia is from posterior left calf hematoma. Additional concern for GI component given reported episode of melena prior to presentation and positive fecal occult blood test. Monitor H&H closely. Repeat this this evening. Transfuse as needed with hemoglobin threshold <7.0= Gastroenterology has been consulted in light of occult blood in stool but holding off for surgical evaluation of hematoma Warfarin is on hold. s/p left hematoma drainage per surgery. (2) Hematoma of left lower extremity: Qualifiers: Encounter type: initial encounter Qualified Code(s): S80.12XA - Contusion of left lower leg, initial encounter Code(s): S80.12XA - Contusion of left lower leg, initial encounter Status: Acute Assessment and Plan: He has a large, dark purple hematoma of left posterior calf. He denies any recent trauma or injury. The area is exquisitely tender and leg is edematous. This is likely source for anemia. Left lower extremity CT demonstrates large subcutaneous hematoma. General surgery has been consulted and input is appreciated. s/p drainage of left calf hematoma. drain in place. Analgesics available as needed for pain (3) Occult blood in stools: Code(s): R19.5 - Other fecal abnormalities Status: Acute Assessment and Plan: Reports of melena prior to presentation. Fecal occult blood test positive on 07/16/2020. 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 INR goal is 2.0-3.0. INR was 3.4 at presentation. He received 1 unit FFP on 07/15 to bring down INR for procedure planning. INR Given acute bleeding, anticoagulation is on hold. In light of mechanical valve, will consider heparin drip if H&H stabilizes. At this time, hemoglobin continues to decline, therefore will hold off on this. Continue to monitor INR daily. INR low, if h and h stable, will start heparin gtt from tomorrow. (5) Acute on chronic renal failure: Qualifiers: Acute renal failure type: unspecified Chronic kidney disease stage: stage 3 (moderate) Chronic kidney disease stage 3 subtype: stage 3b (GFR 30-44) Qualified Code(s): N17.9 - Acute kidney failure, unspecified; N18.32 - Chronic kidney disease, stage 3b Code(s): N17.9 - Acute kidney failure, unspecified; N18.9 - Chronic kidney disease, unspecified Status: Acute Assessment and Plan: Baseline creatinine appears to be variable, around 2.0. Creatinine upon presentation is 2.7. Suspect acute injury is multifactorial when considering diuresis, relative hypotension, and profound anemia. Renal US showed cortical thinning without hydronephrosis. Creatinine is 2.3 today. Encourage adequate PO intake of fluids while monitoring volume status closely. Nephrology has been consulted and input is appreciated. (6) CHF (congestive heart failure): Qualifiers: Heart failure chronicity: acute on chronic Heart failure type: unspecified Qualified Code(s): I50.9 - Heart failure, unspecified Code(s): I50.9 - Heart failure, unspec
[2020-07-18] MEDS: MORPHINE SULFATE (*CRX) 4 MG/ML INJ 2 MG IV PUSH (15:41)
[2020-07-18 18:47] LABS: Glucose Point of Care 202 (65-105)
[2020-07-18] MEDS: INSULIN ASPART (*BKC) 100 UNITS/ML SUB-Q (18:47)
[2020-07-18 19:47] LABS: Hematocrit 22.1 % (42.0-52.0)
[2020-07-18] MEDS: traZODone HCL 25 MG TABLET PO (20:33)
[2020-07-18] MEDS: ATORVASTATIN 40 MG TABLET PO (20:35)
[2020-07-18] MEDS: SENNOSIDES 8.6 MG TABLET PO (20:35)
[2020-07-18] MEDS: MELATONIN 3 MG TABLET 6 MG PO (20:35)
[2020-07-18] MEDS: SODIUM CHLORIDE 0.9% IV 250 ML 30 ML IV CONT (22:00)
[2020-07-18 22:52] LABS: Glucose Point of Care 126 (65-105)
[2020-07-19] VITALS (7 sets, daily range): BP systolic 111–124; BP diastolic 49–65; PULSE 57–82; RESP 16–18; TEMP 36.2–36.6; O2SAT 93–100
[2020-07-19 05:25] LABS: Hemoglobin 7.8 g/dL (14.0-18.0); Mean Corpuscular HGB Conc 32.5 g/dl (32-36); Mean Corpuscular Hemoglobin 28.2 pg (26-34); Mean Corpuscular Volume 86.6 fl (80-100); Mean Platelet Volume 11.1 fl (7.4-10.4); Platelet Count Result 132 k/mm3 (150-375); Red Blood Count 2.77 M/mm3 (4.6-6.20); Red Cell Distribution Width 15.4 % (11.5-14.5); White Blood Count 7.2 K/mm3 (4.5-10.0)
[2020-07-19 05:41] LABS: Albumin Level 3.1 g/dL (3.5-5.1); Anion Gap 5 mmol/L (8-16); Blood Urea Nitrogen 54 mg/dL (9-20); Calcium 8.5 mg/dL (8.4-10.2); Carbon Dioxide 27 mmol/L (22-30); Chloride 103 mmol/L (98-107); Estimated CRCL calculation 32 ml/min; Estimated Glomerular Filt Rate 33; Glucose 128 mg/dL (75-110); Phosphorus 3.8 mg/dL (2.5-4.5); Potassium 4.6 mmol/L (3.4-5.0); Sodium 135 mmol/L (137-145)
[2020-07-19] MEDS: LACTATED RINGERS 1,000 ML 80 ML IV CONT (06:52)
--- NOTE | 2020-07-19 07:26 | WPDANESPN ---
Anes - Prog Note Post-Op Date/Time: 07/19/20 07:26 Cardiovascular status: normal Respiratory status: normal Airway patency: baseline Mental status: baseline Post-Op hydration status: normal Vital Signs: Last Vital Signs Temp 36.6 C 07/19/20 06:00 Pulse 73 07/19/20 06:00 Resp 18 07/19/20 06:00 BP 111/50 L 07/19/20 06:00 Pulse Ox 94 07/19/20 06:00 Pain Score (VAS): 0 I/O: Intake & Output 07/18/20 07/18/20 07/19/20 15:59 23:59 07:59 Intake Total 747 729 5938 Output Total 100 Balance 204 055 0212 Laboratory Tests 07/19/20 05:18 07/19/20 05:18 07/15/20 07/18/20 07/18/20 23:17 05:16 08:16 WBC RBC Hgb Hct MCV MCH MCHC RDW Plt Count MPV Absolute Retic 0.05 L Percent Retic 1.76 Immature Retic Fraction 19.1 H Retic Hgb Content 25.5 L Sodium Potassium Chloride Carbon Dioxide Anion Gap BUN Creatinine Estim Creat Clear Calc Estimated GFR Glucose POC Capillary Glucose 170 H Calcium Phosphorus Albumin Blood Type O Positive Antibody Screen Positive Antibody Identification Anti-Kpa Antigen Identification TNP СВЕТЛАНА, IgG Interpret Positive СВЕТЛАНА, Poly Interpret Positive СВЕТЛАНА, Complement Interp Negative Enhanced Crossmatch See Detail 07/18/20 07/18/20 07/18/20 11:01 18:44 18:55 WBC RBC Hgb 7.0 L Hct 22.1 L MCV MCH MCHC RDW Plt Count MPV Absolute Retic Percent Retic Immature Retic Fraction Retic Hgb Content Sodium Potassium Chloride Carbon Dioxide Anion Gap BUN Creatinine Estim Creat Clear Calc Estimated GFR Glucose POC Capillary Glucose 149 H 202 H Calcium Phosphorus Albumin Blood Type Antibody Screen Antibody Identification Antigen Identification СВЕТЛАНА, IgG Interpret СВЕТЛАНА, Poly Interpret СВЕТЛАНА, Complement Interp Enhanced Crossmatch 07/18/20 07/19/20 07/19/20 22:41 05:18 05:18 WBC 7.2 RBC 2.77 L Hgb 7.8 L Hct 24.0 L MCV 86.6 MCH 28.2 MCHC 32.5 RDW 15.4 H Plt Count 132 L MPV 11.1 H Absolute Retic Percent Retic Immature Retic Fraction Retic Hgb Content Sodium 135 L Potassium 4.6 Chloride 103 Carbon Dioxide 27 Anion Gap 5 L BUN 54 H Creatinine 2.00 H Estim Creat Clear Calc 32 Estimated GFR 33 L Glucose 128 H POC Capillary Glucose 126 H Calcium 8.5 Phosphorus 3.8 Albumin 3.1 L Blood Type Antibody Screen Antibody Identification Antigen Identification СВЕТЛАНА, IgG Interpret СВЕТЛАНА, Poly Interpret СВЕТЛАНА, Complement Interp Enhanced Crossmatch Post-procedural complaints: none Patient Feedback: Patient satisfied with anesthetic care.
[2020-07-19 08:25] LABS: Glucose Point of Care 136 (65-105)
[2020-07-19] MEDS: PANTOPRAZOLE 40 MG TABLET PO ×2 (08:56→22:18)
[2020-07-19] MEDS: DULoxetine HCL 30 MG CAPSULE.DR PO (08:57)
[2020-07-19] MEDS: FERROUS SULFATE 324 MG TABLET PO (08:57)
[2020-07-19] MEDS: hydrOXYzine HCL 25 MG TABLET PO ×4 (08:57→22:12)
[2020-07-19] MEDS: FUROSEMIDE 40 MG TABLET PO (08:57)
[2020-07-19] MEDS: FINASTERIDE 5 MG TABLET PO (08:57)
[2020-07-19] MEDS: METOPROLOL TARTRATE 12.5 MG TABLET PO ×2 (08:57→22:17)
[2020-07-19] MEDS: MULTIVITAMINS THERAPEUTIC TAB (*BKC) 1 TABLET PO (08:57)
[2020-07-19] MEDS: ASCORBIC ACID 500 MG TABLET PO ×2 (08:57→16:18)
[2020-07-19] MEDS: TAMSULOSIN HCL 0.4 MG CAPSULE PO (08:57)
[2020-07-19] MEDS: BETAMETHASONE/CLOTRIMAZOLE CR 15 GM TUBE 1 APPLIC TOPICAL (08:58)
[2020-07-19] MEDS: HYDROcodone/acetaminophen (*CRX) 7.5-325 MG TABLET 1 TAB PO ×3 (09:02→23:41)
[2020-07-19] MEDS: PREGABALIN (*CRX) 75 MG CAPSULE PO ×2 (09:03→16:18)
[2020-07-19 12:07] LABS: Glucose Point of Care 199 (65-105)
--- NOTE | 2020-07-19 13:30 | PM.PNGS ---
Progress Note: A&P Assessment and Plan (1) Hematoma of left lower extremity: Qualifiers: Encounter type: initial encounter Qualified Code(s): S80.12XA - Contusion of left lower leg, initial encounter Code(s): S80.12XA - Contusion of left lower leg, initial encounter Status: Acute Assessment and Plan: Post-op day 1 of excisional debridement and evacuation of large left lower leg hematoma with wound VAC placement. Continue wound VAC therapy. Will plan on changing the wound VAC dressing later this week, likely Friday. We have consulted Plastics due to the remaining large open wound after surgery, appreciate their recommendations and help with further wound management. (2) Open wound of left lower extremity: Code(s): S81.802A - Unspecified open wound, left lower leg, initial encounter Status: Acute Assessment and Plan: See plan above. 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 INR yesterday 1.4. (4) Acute on chronic blood loss anemia: Code(s): D62 - Acute posthemorrhagic anemia Status: Acute Assessment and Plan: Received 1 unit PRBC yesterday evening. Hgb 7.8 this morning. Continue to monitor H/H, warfarin on hold. Additional Plan I have discussed the plan of care with Dr. Lamar. Subjective Subjective Date/Time Seen: 07/19/20 11:30 Post Op day: 1 (excisional debridement of skin & subcut. tissue, evacuation large left lower extremity hematoma, placement of wound vac) Patient reports: no new complaints and afebrile Interval history: Patient seen while sitting in a chair. He reports some pain in his left lower leg, but tolerable. Wound VAC in place with 200 cc recorded drainage since surgery. Exam Const: General: no acute distress, alert and awake Skin: Other: Posterior left lower leg wound with wound VAC in place, dry and intact, functioning well. Serosanguineous drainage in canister. Multiple bullae at the edges of the transparent dressing of the posterior knee and one on the dorsal aspect of his left foot, intact. Neuro: General: no focal motor deficits Extrem: General: edema bilateral (pitting, moderate) Psych: Mental Status: mental status grossly normal Speech and movement: Normal speech and movement present Objective Data Vital Signs Vital Signs: Vital Signs - 24 hr 07/18/20 13:43 07/18/20 14:00 07/18/20 20:34 Temperature 97 F L 98.3 F Pulse Rate 62 75 76 Respiratory Rate 16 16 Blood Pressure 126/51 L 125/65 Pulse Oximetry 98 99 07/18/20 21:20 07/18/20 22:25 07/18/20 22:40 Temperature 98.0 F 99 F 97.8 F Pulse Rate 67 56 L 76 Respiratory Rate 16 20 18 Blood Pressure 122/70 115/44 L 121/49 L Pulse Oximetry 99 96 98 07/18/20 23:40 07/19/20 00:40 07/19/20 03:15 Temperature 97.9 F 97.8 F 97.9 F Pulse Rate 65 80 82 Respiratory Rate 16 16 16 Blood Pressure 122/54 L 112/50 L 114/49 L Pulse Oximetry 97 93 94 07/19/20 06:00 07/19/20 08:57 Temperature 97.8 F Pulse Rate 73 73 Respiratory Rate 18 Blood Pressure 111/50 L Pulse Oximetry 94 Intake/Output Intake/Output: Intake & Output 07/16/20 07/17/20 07/18/20 07/19/20 23:59 23:59 23:59 23:59 Intake Total 1340 3320 1110 1750 Output Total 2100 451 100 100 Balance -760 2869 1010 1650 Meds/Results Medications: Active Medications Generic Name Dose Route Start Last Admin Trade Name Freq PRN Reason Stop Dose Admin Acetaminophen 500 mg 07/18/20 11:51 Acetaminophen 500 Mg Tablet PO Q6H PRN Mild Pain (1-3) or Fever Hydrocodone Bitart/Acetaminophen 1 tab 07/18/20 11:51 Hydrocodone/Acetaminophen (*Crx) 5-325 Mg Tablet PO Q4H PRN Pain Rated 4-6 Hydrocodone Bitart/Acetaminophen 1 tab 07/18/20 11:51 07/19/20 09:02 Hydrocodone/Acetaminophen (*Crx) 7.5-325 Mg Tablet PO 1 tab Q4H PRN Administration Pain
--- NOTE | 2020-07-19 13:38 | PC.NURSE ---
On 07/19/20, the student, [Denise Lopez ], provided care and completed [facility] documentation on this patient. I have reviewed the student's documentation and agree with the findings.
--- NOTE | 2020-07-19 14:03 | PM.IMPN ---
Progress Note: A&P Assessment and Plan (1) Acute blood loss anemia: Code(s): D62 - Acute posthemorrhagic anemia Status: Acute Assessment and Plan: Acute on chronic normocytic anemia. He was recently hospitalized in May 2020 and underwent blood transfusion at that time. Hemoglobin and hematocrit are even lower at this hospitalization. He has required a total of 4 units pRBC. H&H continues to slowly decline. Suspected source of anemia is from posterior left calf hematoma. Additional concern for GI component given reported episode of melena prior to presentation and positive fecal occult blood test. Monitor H&H closely. Repeat this this evening. Transfuse as needed with hemoglobin threshold <7.0= Gastroenterology has been consulted in light of occult blood in stool but holding off for surgical evaluation of hematoma Warfarin is on hold. s/p left hematoma drainage per surgery. transfused one unti 4/6 night. monitor h and h in am. if stable, will need heparin gtt bridging anticoagulation if okay iwth surgery. (2) Hematoma of left lower extremity: Qualifiers: Encounter type: initial encounter Qualified Code(s): S80.12XA - Contusion of left lower leg, initial encounter Code(s): S80.12XA - Contusion of left lower leg, initial encounter Status: Acute Assessment and Plan: He has a large, dark purple hematoma of left posterior calf. He denies any recent trauma or injury. The area is exquisitely tender and leg is edematous. This is likely source for anemia. Left lower extremity CT demonstrates large subcutaneous hematoma. General surgery has been consulted and input is appreciated. s/p drainage of left calf hematoma. drain in place. Analgesics available as needed for pain (3) Occult blood in stools: Code(s): R19.5 - Other fecal abnormalities Status: Acute Assessment and Plan: Reports of melena prior to presentation. Fecal occult blood test positive on 07/16/2020. Gastroenterology is following and input is appreciated Planning for EGD, however awaiting surgical intervention of left leg hematoma as this appears to be more acute source of blood loss Continue Protonix daily Avoid NSAIDs and aspirin (4) Chronic anticoagulation: Code(s): Z79.01 - MCFP (current) use of anticoagulants Status: Acute Assessment and Plan: He is maintained on chronic warfarin for atrial fibrillation and also has a mechanical aortic valve. INR goal is 2.0-3.0. INR was 3.4 at presentation. He received 1 unit FFP on 07/15 to bring down INR for procedure planning. INR Given acute bleeding, anticoagulation is on hold. In light of mechanical valve, will consider heparin drip if H&H stabilizes. At this time, hemoglobin continues to decline, therefore will hold off on this. Continue to monitor INR daily. INR low, if h and h stable, will hold off on heparin gtt as his h and h continued to drop needing transfusion. des reheck h and h in am, if needed, will consider heaprin gtt. (5) Acute on chronic renal failure: Qualifiers: Acute renal failure type: unspecified Chronic kidney disease stage: stage 3 (moderate) Chronic kidney disease stage 3 subtype: stage 3b (GFR 30-44) Qualified Code(s): N17.9 - Acute kidney failure, unspecified; N18.32 - Chronic kidney disease, stage 3b Code(s): N17.9 - Acute kidney failure, unspecified; N18.9 - Chronic kidney disease, unspecified Status: Acute Assessment and Plan: Baseline creatinine appears to be variable, around 2.0. Creatinine upon presentation is 2.7. Suspect acute injury is multifactorial when considering diuresis, relative hypotension, and profound anemia. Renal US showed cortical thinning without hydronephrosis. Creatinine is 2.3 today. Encourage adequate PO intake of fluids while monitoring volume status closely. Nephrology has been consulted and input is appreciated.
--- NOTE | 2020-07-19 14:08 | P.PNNP_ITS ---
Progress Note: A&P Assessment and Plan (1) ANDRADE (acute kidney injury): Code(s): N17.9 - Acute kidney failure, unspecified Status: Acute Assessment and Plan: * several possible issues/factors: - severe anemia - relative hypotension (100s systolic on presentation)/prerenal issues - concurrent use of diuretics prior to admission -infection/inflammation from leg wounds? * could be a component of disease progression as well * renal ultrasound without any acute issue -- findings c/w CKD * urine electrolytes demonstrated pre-renal azotemia * His creatinine has improved to 2.0. I think we can stop IV fluids.. (2) Chronic kidney disease, stage IV (severe): Code(s): N18.4 - Chronic kidney disease, stage 4 (severe) Status: Chronic Assessment and Plan: * normal creatinine in 2018 * however, bout of ANDRADE due to sepsis in October 2019 and appears to have had CKD since that time * baseline creatinine ~ 1.6 - 2.1mg/dl since January 2020 * contributing factors include CHF with need for chronic diuretics, diabetes, age, and vascular disease (3) Anemia: Code(s): D64.9 - Anemia, unspecified Status: Acute Assessment and Plan: * due to a combination of previous hematuria, supratherapuetic INR, hematoma, low platelet count, and melena * PRBC transfusion per protocol * holding coumadin * Gastroenterololgy following -- waiting for INR to come down prior to any intervention/procedure. INR is now 1.5. * on PPI * . Recheck only 1.7. Will start Epogen. * following H/H. Stable in the sevens. (4) Hematoma of left lower extremity: Qualifiers: Encounter type: initial encounter Qualified Code(s): S80.12XA - Contusion of left lower leg, initial encounter Code(s): S80.12XA - Contusion of left lower leg, initial encounter Status: Acute Assessment and Plan: * unclear duration * contributing to anemia(?) * wound care following * CT of left LE done, showing the hematoma. (5) Chronic venous insufficiency of lower extremity: Code(s): I87.2 - Venous insufficiency (chronic) (peripheral) Status: Chronic Assessment and Plan: * wound care consulted * pain control (6) CHF (congestive heart failure): Qualifiers: Heart failure chronicity: acute on chronic Heart failure type: unspecified Qualified Code(s): I50.9 - Heart failure, unspecified Code(s): I50.9 - Heart failure, unspecified Status: Acute Assessment and Plan: * appears stable * Echo showed 30% EF and some enlargement of the right ventricle as well. * on oral lasix Subjective Date/time seen: 07/19/20 14:08 Interval history: Patient feels okay this morning. He is up at the side of the bed. Some pain at the operative site. No shortness of breath. Review of Systems Cardiovascular: Cardiovascular: Reports no additional cardiovascular complaints Respiratory: Respiratory: Reports no additional respiratory complaints Gastrointestinal: Gastrointestinal: Reports no additional gastrointestinal complaints Genitourinary: Genitourinary: Reports no additional male genitourinary complaints Exam Narrative: Exam Narrative: General: Elderly male in NAD Heart: normal S1 and S2; no rub or gallop Lungs: clear bilaterally Abdomen: soft, nontender, nondistended, positive bowel sounds Extremities: 1 - 2+ edema and no cyanosis Skin: chroni
--- NOTE | 2020-07-19 14:08 | PM.PNNEP ---
Progress Note: A&P Assessment and Plan (1) ANDRADE (acute kidney injury): Code(s): N17.9 - Acute kidney failure, unspecified Status: Acute Assessment and Plan: several possible issues/factors: - severe anemia - relative hypotension (100s systolic on presentation)/prerenal issues - concurrent use of diuretics prior to admission -infection/inflammation from leg wounds? could be a component of disease progression as well renal ultrasound without any acute issue -- findings c/w CKD urine electrolytes demonstrated pre-renal azotemia His creatinine has improved to 2.0. I think we can stop IV fluids.. (2) Chronic kidney disease, stage IV (severe): Code(s): N18.4 - Chronic kidney disease, stage 4 (severe) Status: Chronic Assessment and Plan: normal creatinine in 2019 however, bout of ANDRADE due to sepsis in October 2019 and appears to have had CKD since that time baseline creatinine ~ 1.6 - 2.1mg/dl since January 2020 contributing factors include CHF with need for chronic diuretics, diabetes, age, and vascular disease (3) Anemia: Code(s): D64.9 - Anemia, unspecified Status: Acute Assessment and Plan: due to a combination of previous hematuria, supratherapuetic INR, hematoma, low platelet count, and melena PRBC transfusion per protocol holding coumadin Gastroenterololgy following -- waiting for INR to come down prior to any intervention/procedure. INR is now 1.5. on PPI . Recheck only 1.7. Will start Epogen. following H/H. Stable in the sevens. (4) Hematoma of left lower extremity: Qualifiers: Encounter type: initial encounter Qualified Code(s): S80.12XA - Contusion of left lower leg, initial encounter Code(s): S80.12XA - Contusion of left lower leg, initial encounter Status: Acute Assessment and Plan: unclear duration contributing to anemia(?) wound care following CT of left LE done, showing the hematoma. (5) Chronic venous insufficiency of lower extremity: Code(s): I87.2 - Venous insufficiency (chronic) (peripheral) Status: Chronic Assessment and Plan: wound care consulted pain control (6) CHF (congestive heart failure): Qualifiers: Heart failure chronicity: acute on chronic Heart failure type: unspecified Qualified Code(s): I50.9 - Heart failure, unspecified Code(s): I50.9 - Heart failure, unspecified Status: Acute Assessment and Plan: appears stable Echo showed 30% EF and some enlargement of the right ventricle as well. on oral lasix Subjective Date/time seen: 07/19/20 14:08 Interval history: Patient feels okay this morning. He is up at the side of the bed. Some pain at the operative site. No shortness of breath. Review of Systems Cardiovascular: Cardiovascular: Reports no additional cardiovascular complaints Respiratory: Respiratory: Reports no additional respiratory complaints Gastrointestinal: Gastrointestinal: Reports no additional gastrointestinal complaints Genitourinary: Genitourinary: Reports no additional male genitourinary complaints Exam Narrative: Exam Narrative: General: Elderly male in NAD Heart: normal S1 and S2; no rub or gallop Lungs: clear bilaterally Abdomen: soft, nontender, nondistended, positive bowel sounds Extremities: 1 - 2+ edema and no cyanosis Skin: chronic venous stasis changes noted; decreased weeping from multiple wounds/scabs/blisters; Bandage over the hematoma operation site Objective Data Vital Signs Vital Signs: Vital Signs - 24 hr 07/18/20 20:34 07/18/20 21:20 07/18/20 22:25 Temperature 36.7 C 37.2 C Pulse Rate 76 67 56 L Respiratory Rate 16 20 Blood Pressure 122/70 115/44 L Pulse Oximetry 99 96 07/18/20 22:40 07/18/20 23:40 07/19/20 00:40 Temperature 36.6 C 36.6 C 36.6 C Pulse Rate 76 65 80 Respiratory Rate 18
[2020-07-19] MEDS: EPOETIN ALFA-EPBX 10,000 UNITS/ML VIAL 10000 UNITS SUB-Q (16:17)
[2020-07-19 17:03] LABS: Glucose Point of Care 142 (65-105)
[2020-07-19] MEDS: HYDROcodone/acetaminophen (*CRX) 5-325 MG TABLET 1 TAB PO (20:50)
[2020-07-19] MEDS: ATORVASTATIN 40 MG TABLET PO (22:07)
[2020-07-19] MEDS: MELATONIN 3 MG TABLET 6 MG PO (22:12)
[2020-07-19] MEDS: traZODone HCL 25 MG TABLET PO (22:13)
--- NOTE | 2020-07-19 22:48 | PC.NURSE ---
Dr Yadav called to evaluate blistering to right hip and bilateral lower legs. New onset blistering occurring at betamethasone application sites. Ordered to betamethasone cream until re-evaluated by wound care.
[2020-07-19 23:41] LABS: Glucose Point of Care 166 (65-105)
[2020-07-20] MEDS: HYDROcodone/acetaminophen (*CRX) 5-325 MG TABLET 1 TAB PO ×2 (02:15→09:04)
[2020-07-20 05:28] LABS: Creatinine, Random Urine 74 mg/dL (20-320); Total Protein/Creatinine Ratio 108 mg/g creat (22-128)
[2020-07-20 05:35] VITALS: BP 123/53; PULSE 67; RESP 16; TEMP 36.3; O2SAT 95
[2020-07-20 05:38] LABS: Basophils Percent Auto 0.2 % (0.2-1.2); Eosinophils Absolute Auto 0.5 K/mm3 (0-0.3); Hematocrit 25.1 % (42.0-52.0); Hemoglobin 8.1 g/dL (14.0-18.0); Immature Granulocyte Absolute 0.07 K/mm3 (0.00-0.031); Immature Granulocyte Percent A 1.1 % (0-0.5); Lymphocytes Absolute Auto 0.58 K/mm3 (0.9-3.2); Mean Corpuscular HGB Conc 32.3 g/dl (32-36); Mean Corpuscular Hemoglobin 28.7 pg (26-34); Mean Platelet Volume 11.1 fl (7.4-10.4); Monocytes Absolute Auto 0.8 K/mm3 (0.1-0.6); Monocytes Percent Auto 12.2 % (2.6-8.5); Neutrophils Absolute Auto 4.5 K/mm3 (1.3-6.7); Neutrophils Percent Auto 69.5 % (45.5-73.1); Platelet Count Result 142 k/mm3 (150-375); Red Blood Count 2.82 M/mm3 (4.6-6.20); Red Cell Distribution Width 15.4 % (11.5-14.5); White Blood Count 6.4 K/mm3 (4.5-10.0)
[2020-07-20 05:59] LABS: Anion Gap 5 mmol/L (8-16); Blood Urea Nitrogen 56 mg/dL (9-20); Calcium 8.6 mg/dL (8.4-10.2); Carbon Dioxide 28 mmol/L (22-30); Chloride 104 mmol/L (98-107); Estimated CRCL calculation 27 ml/min; Estimated Glomerular Filt Rate 27; Glucose 134 mg/dL (75-110); Phosphorus 4.1 mg/dL (2.5-4.5); Potassium 4.6 mmol/L (3.4-5.0); Sodium 137 mmol/L (137-145)
--- NOTE | 2020-07-20 07:12 | P.PNNP_ITS ---
Progress Note: A&P Assessment and Plan (1) ANDRADE (acute kidney injury): Code(s): N17.9 - Acute kidney failure, unspecified Status: Acute Assessment and Plan: * several possible issues/factors: - severe anemia - relative hypotension (100s systolic on presentation)/prerenal issues - concurrent use of diuretics prior to admission -infection/inflammation from leg wounds? * could be a component of disease progression as well * renal ultrasound without any acute issue -- findings c/w CKD * urine electrolytes demonstrated pre-renal azotemia * His creatinine is up and down. Today it is 2.4. It seems to be varying in the low 2s (2) Chronic kidney disease, stage IV (severe): Code(s): N18.4 - Chronic kidney disease, stage 4 (severe) Status: Chronic Assessment and Plan: * normal creatinine in 2019 * however, bout of ANDRADE due to sepsis in October 2019 and appears to have had CKD since that time * baseline creatinine ~ 1.6 - 2.1mg/dl since January 2020 * contributing factors include CHF with need for chronic diuretics, diabetes, age, and vascular disease (3) Anemia: Code(s): D64.9 - Anemia, unspecified Status: Acute Assessment and Plan: * due to a combination of previous hematuria, supratherapuetic INR, hematoma, low platelet count, and melena * PRBC transfusion per protocol * holding coumadin * Gastroenterololgy following -- waiting for INR to come down prior to any intervention/procedure. INR is now 1.5. * on PPI * . Retic only 1.7. On Epogen. * following H/H. Today it is 8.1 (4) Hematoma of left lower extremity: Qualifiers: Encounter type: initial encounter Qualified Code(s): S80.12XA - Contusion of left lower leg, initial encounter Code(s): S80.12XA - Contusion of left lower leg, initial encounter Status: Acute Assessment and Plan: * Status post drainage. * The drainage tube is out now. (5) Chronic venous insufficiency of lower extremity: Code(s): I87.2 - Venous insufficiency (chronic) (peripheral) Status: Chronic Assessment and Plan: * wound care consulted * pain control (6) CHF (congestive heart failure): Qualifiers: Heart failure chronicity: acute on chronic Heart failure type: unspecif ied Qualified Code(s): I50.9 - Heart failure, unspecified Code(s): I50.9 - Heart failure, unspecified Status: Acute Assessment and Plan: * appears stable * Echo showed 30% EF and some enlargement of the right ventricle as well. * on oral lasix 40 mg a day Subjective Date/time seen: 07/20/20 07:12 Interval history: Patient feels okay this morning. He slept well. He is eating okay. No shortness of breath. Review of Systems Cardiovascular: Cardiovascular: Reports no additional cardiovascular complaints Respiratory: Respiratory: Reports no additional respiratory complaints Gastrointestinal: Gastrointestinal: Reports no additional gastrointestinal complaints Genitourinary: Genitourinary: Reports no additional male genitourinary complaints Exam Narrative: Exam Narrative: General: Elderly male in NAD Heart: normal S1 and S2; no rub Lungs: clear to auscultation Abdomen: soft, nontender, nondistended, positive bowel sounds Extremities: 1 - 2+ edema and no cyanosis Skin: chronic venous stasis changes noted; decreased weeping from multiple wounds/scabs/blisters;
--- NOTE | 2020-07-20 07:12 | PM.PNNEP ---
Progress Note: A&P Assessment and Plan (1) ANDRADE (acute kidney injury): Code(s): N17.9 - Acute kidney failure, unspecified Status: Acute Assessment and Plan: several possible issues/factors: - severe anemia - relative hypotension (100s systolic on presentation)/prerenal issues - concurrent use of diuretics prior to admission -infection/inflammation from leg wounds? could be a component of disease progression as well renal ultrasound without any acute issue -- findings c/w CKD urine electrolytes demonstrated pre-renal azotemia His creatinine is up and down. Today it is 2.4. It seems to be varying in the low 2s (2) Chronic kidney disease, stage IV (severe): Code(s): N18.4 - Chronic kidney disease, stage 4 (severe) Status: Chronic Assessment and Plan: normal creatinine in 2019 however, bout of ANDRADE due to sepsis in October 2019 and appears to have had CKD since that time baseline creatinine ~ 1.6 - 2.1mg/dl since January 2020 contributing factors include CHF with need for chronic diuretics, diabetes, age, and vascular disease (3) Anemia: Code(s): D64.9 - Anemia, unspecified Status: Acute Assessment and Plan: due to a combination of previous hematuria, supratherapuetic INR, hematoma, low platelet count, and melena PRBC transfusion per protocol holding coumadin Gastroenterololgy following -- waiting for INR to come down prior to any intervention/procedure. INR is now 1.5. on PPI . Retic only 1.7. On Epogen. following H/H. Today it is 8.1 (4) Hematoma of left lower extremity: Qualifiers: Encounter type: initial encounter Qualified Code(s): S80.12XA - Contusion of left lower leg, initial encounter Code(s): S80.12XA - Contusion of left lower leg, initial encounter Status: Acute Assessment and Plan: Status post drainage. The drainage tube is out now. (5) Chronic venous insufficiency of lower extremity: Code(s): I87.2 - Venous insufficiency (chronic) (peripheral) Status: Chronic Assessment and Plan: wound care consulted pain control (6) CHF (congestive heart failure): Qualifiers: Heart failure chronicity: acute on chronic Heart failure type: unspecified Qualified Code(s): I50.9 - Heart failure, unspecified Code(s): I50.9 - Heart failure, unspecified Status: Acute Assessment and Plan: appears stable Echo showed 30% EF and some enlargement of the right ventricle as well. on oral lasix 40 mg a day Subjective Date/time seen: 07/20/20 07:12 Interval history: Patient feels okay this morning. He slept well. He is eating okay. No shortness of breath. Review of Systems Cardiovascular: Cardiovascular: Reports no additional cardiovascular complaints Respiratory: Respiratory: Reports no additional respiratory complaints Gastrointestinal: Gastrointestinal: Reports no additional gastrointestinal complaints Genitourinary: Genitourinary: Reports no additional male genitourinary complaints Exam Narrative: Exam Narrative: General: Elderly male in NAD Heart: normal S1 and S2; no rub Lungs: clear to auscultation Abdomen: soft, nontender, nondistended, positive bowel sounds Extremities: 1 - 2+ edema and no cyanosis Skin: chronic venous stasis changes noted; decreased weeping from multiple wounds/scabs/blisters; Bandage over the hematoma operation site Objective Data Vital Signs Vital Signs: Vital Signs - 24 hr 07/19/20 08:57 07/19/20 13:34 07/19/20 21:18 Temperature 36.2 C L 36.5 C Pulse Rate 73 57 L 82 Respiratory Rate 16 16 Blood Pressure 124/63 121/65 Pulse Oximetry 100 97 07/19/20 22:17 07/20/20 05:35 Temperature 36.3 C L Pulse Rate 82 67 Respiratory Rate 16 Blood Pressure 123/53 L Pulse Oximetry 95 Intake/Output Intake/Output: Intake & Output 07/17/20 0
[2020-07-20 09:02] VITALS: PULSE 67
[2020-07-20] MEDS: PANTOPRAZOLE 40 MG TABLET PO ×2 (09:02→20:22)
[2020-07-20] MEDS: METOPROLOL TARTRATE 12.5 MG TABLET PO (09:02)
[2020-07-20] MEDS: DULoxetine HCL 30 MG CAPSULE.DR PO (09:02)
[2020-07-20] MEDS: FERROUS SULFATE 324 MG TABLET PO (09:02)
[2020-07-20] MEDS: MULTIVITAMINS THERAPEUTIC TAB (*BKC) 1 TABLET PO (09:03)
[2020-07-20] MEDS: TAMSULOSIN HCL 0.4 MG CAPSULE PO (09:03)
[2020-07-20] MEDS: FINASTERIDE 5 MG TABLET PO (09:03)
[2020-07-20] MEDS: FUROSEMIDE 40 MG TABLET PO (09:03)
[2020-07-20] MEDS: ASCORBIC ACID 500 MG TABLET PO ×2 (09:03→17:07)
[2020-07-20] MEDS: PREGABALIN (*CRX) 75 MG CAPSULE PO ×2 (09:04→17:07)
[2020-07-20] MEDS: polyethylene glycoL 3350 17 GM POWD.PACK PO (09:04)
[2020-07-20] MEDS: hydrOXYzine HCL 25 MG TABLET PO ×4 (09:04→20:23)
[2020-07-20 11:57] LABS: Glucose Point of Care 198 (65-105)
[2020-07-20 11:57] LABS: Glucose Point of Care 133 (65-105)
[2020-07-20] MEDS: HYDROcodone/acetaminophen (*CRX) 7.5-325 MG TABLET 1 TAB PO ×2 (13:37→18:05)
[2020-07-20 14:00] VITALS: BP 105/52; PULSE 54; RESP 16; TEMP 36.1; O2SAT 99
--- NOTE | 2020-07-20 14:25 | PM.IMPN ---
Progress Note: A&P Assessment and Plan (1) Acute blood loss anemia: Code(s): D62 - Acute posthemorrhagic anemia Status: Acute Assessment and Plan: Acute on chronic normocytic anemia. He was recently hospitalized in May 2020 and underwent blood transfusion at that time. Hemoglobin and hematocrit are even lower at this hospitalization. He has required a total of 4 units pRBC. H&H continues to slowly decline. Suspected source of anemia is from posterior left calf hematoma. Additional concern for GI component given reported episode of melena prior to presentation and positive fecal occult blood test. Monitor H&H closely. Repeat this this evening. Transfuse as needed with hemoglobin threshold <7.0= Gastroenterology has been consulted in light of occult blood in stool but holding off for surgical evaluation of hematoma Warfarin is on hold. s/p left hematoma drainage per surgery. transfused one unti 4/6 night. monitor h and h in am. if stable, will need heparin gtt bridging anticoagulation if okay iwth surgery. h and h stable this am. if okay with surgery, will start heparin gtt briding anticoagulation. if remains stabe on this, will start warfarin anticoagulation for his metaboliic prosthetic heart valve. (2) Hematoma of left lower extremity: Qualifiers: Encounter type: initial encounter Qualified Code(s): S80.12XA - Contusion of left lower leg, initial encounter Code(s): S80.12XA - Contusion of left lower leg, initial encounter Status: Acute Assessment and Plan: He has a large, dark purple hematoma of left posterior calf. He denies any recent trauma or injury. The area is exquisitely tender and leg is edematous. This is likely source for anemia. Left lower extremity CT demonstrates large subcutaneous hematoma. General surgery has been consulted and input is appreciated. s/p drainage of left calf hematoma. drain in place. Analgesics available as needed for pain (3) Occult blood in stools: Code(s): R19.5 - Other fecal abnormalities Status: Acute Assessment and Plan: Reports of melena prior to presentation. Fecal occult blood test positive on 07/16/2020. Gastroenterology is following and input is appreciated Planning for EGD, however awaiting surgical intervention of left leg hematoma as this appears to be more acute source of blood loss Continue Protonix daily Avoid NSAIDs and aspirin (4) Chronic anticoagulation: Code(s): Z79.01 - FDC (current) use of anticoagulants Status: Acute Assessment and Plan: He is maintained on chronic warfarin for atrial fibrillation and also has a mechanical aortic valve. INR goal is 2.0-3.0. INR was 3.4 at presentation. He received 1 unit FFP on 07/15 to bring down INR for procedure planning. INR Given acute bleeding, anticoagulation is on hold. In light of mechanical valve, will consider heparin drip if H&H stabilizes. At this time, hemoglobin continues to decline, therefore will hold off on this. Continue to monitor INR daily. INR low, if h and h stable, will hold off on heparin gtt as his h and h continued to drop needing transfusion. start heparin gtt, as his h and h is stable now (5) Acute on chronic renal failure: Qualifiers: Acute renal failure type: unspecified Chronic kidney disease stage: stage 3 (moderate) Chronic kidney disease stage 3 subtype: stage 3b (GFR 30-44) Qualified Code(s): N17.9 - Acute kidney failure, unspecified; N18.32 - Chronic kidney disease, stage 3b Code(s): N17.9 - Acute kidney failure, unspecified; N18.9 - Chronic kidney disease, unspecified Status: Acute Assessment and Plan: Baseline creatinine appears to be variable, around 2.0. Creatinine upon presentation is 2.7. Suspect acute injury is multifactorial when considering diuresis, relative hypotension, and profound anemia. Renal US showed cortical thinning without
[2020-07-20 14:52] LABS: Basophils Percent Auto 0.2 % (0.2-1.2); Eosinophils Absolute Auto 0.5 K/mm3 (0-0.3); Eosinophils Percent Auto 8.2 % (0-4.4); Immature Granulocyte Absolute 0.09 K/mm3 (0.00-0.031); Immature Granulocyte Percent A 1.4 % (0-0.5); Lymphocytes Absolute Auto 0.54 K/mm3 (0.9-3.2); Lymphocytes Percent Auto 8.3 % (18.3-44.2); Mean Corpuscular Hemoglobin 28.8 pg (26-34); Mean Corpuscular Volume 89.9 fl (80-100); Mean Platelet Volume 10.7 fl (7.4-10.4); Monocytes Absolute Auto 0.9 K/mm3 (0.1-0.6); Monocytes Percent Auto 13.6 % (2.6-8.5); Neutrophils Absolute Auto 4.4 K/mm3 (1.3-6.7); Neutrophils Percent Auto 68.3 % (45.5-73.1); Platelet Count Result 143 k/mm3 (150-375); Red Blood Count 2.78 M/mm3 (4.6-6.20); Red Cell Distribution Width 15.6 % (11.5-14.5); White Blood Count 6.5 K/mm3 (4.5-10.0)
[2020-07-20 15:01] LABS: INR 1.2; Prothrombin Time 16.1 Seconds (11.1-14.7)
[2020-07-20 15:02] LABS: Partial Thromboplastin Time 38.9 SECONDS (22.3-36.8)
[2020-07-20 17:24] LABS: Glucose Point of Care 136 (65-105)
[2020-07-20 20:00] VITALS: BP 128/60; PULSE 80; RESP 20; TEMP 36.5; O2SAT 97
[2020-07-20] MEDS: MORPHINE SULFATE (*CRX) 4 MG/ML INJ 2 MG IV PUSH (20:20)
[2020-07-20] MEDS: SENNOSIDES 8.6 MG TABLET PO (20:22)
[2020-07-20] MEDS: traZODone HCL 25 MG TABLET PO (20:22)
[2020-07-20] MEDS: MELATONIN 3 MG TABLET 6 MG PO (20:22)
[2020-07-20] MEDS: ATORVASTATIN 40 MG TABLET PO (20:23)
[2020-07-20 22:23] LABS: Glucose Point of Care 123 (65-105)
[2020-07-21] MEDS: HYDROcodone/acetaminophen (*CRX) 7.5-325 MG TABLET 1 TAB PO ×4 (01:56→17:55)
[2020-07-21 05:36] VITALS: BP 141/70; PULSE 79; RESP 20; TEMP 36.6; O2SAT 97
[2020-07-21 05:50] LABS: Basophils Percent Auto 0.3 % (0.2-1.2); Eosinophils Absolute Auto 0.5 K/mm3 (0-0.3); Eosinophils Percent Auto 8.2 % (0-4.4); Hematocrit 25.2 % (42.0-52.0); Hemoglobin 7.9 g/dL (14.0-18.0); Immature Granulocyte Absolute 0.07 K/mm3 (0.00-0.031); Immature Granulocyte Percent A 1.1 % (0-0.5); Lymphocytes Absolute Auto 0.63 K/mm3 (0.9-3.2); Lymphocytes Percent Auto 9.6 % (18.3-44.2); Mean Corpuscular HGB Conc 31.3 g/dl (32-36); Mean Corpuscular Hemoglobin 27.8 pg (26-34); Mean Corpuscular Volume 88.7 fl (80-100); Mean Platelet Volume 12.3 fl (7.4-10.4); Monocytes Absolute Auto 0.7 K/mm3 (0.1-0.6); Monocytes Percent Auto 10.7 % (2.6-8.5); Neutrophils Absolute Auto 4.6 K/mm3 (1.3-6.7); Neutrophils Percent Auto 70.1 % (45.5-73.1); Platelet Count Result 129 k/mm3 (150-375); Red Blood Count 2.84 M/mm3 (4.6-6.20); Red Cell Distribution Width 15.6 % (11.5-14.5); White Blood Count 6.6 K/mm3 (4.5-10.0)
[2020-07-21 06:03] LABS: Albumin Level 3.1 g/dL (3.5-5.1); Anion Gap 7 mmol/L (8-16); Blood Urea Nitrogen 59 mg/dL (9-20); Calcium 8.6 mg/dL (8.4-10.2); Carbon Dioxide 23 mmol/L (22-30); Chloride 106 mmol/L (98-107); Estimated CRCL calculation 31 ml/min; Estimated Glomerular Filt Rate 31; Glucose 117 mg/dL (75-110); Phosphorus 4.2 mg/dL (2.5-4.5); Potassium 4.8 mmol/L (3.4-5.0); Sodium 136 mmol/L (137-145)
[2020-07-21 08:19] VITALS: PULSE 68
[2020-07-21] MEDS: DULoxetine HCL 30 MG CAPSULE.DR PO (08:19)
[2020-07-21] MEDS: METOPROLOL TARTRATE 12.5 MG TABLET PO ×2 (08:19→21:04)
[2020-07-21] MEDS: FERROUS SULFATE 324 MG TABLET PO (08:19)
[2020-07-21] MEDS: FINASTERIDE 5 MG TABLET PO (08:19)
[2020-07-21] MEDS: hydrOXYzine HCL 25 MG TABLET PO ×4 (08:19→21:03)
[2020-07-21] MEDS: ASCORBIC ACID 500 MG TABLET PO ×2 (08:19→17:55)
[2020-07-21] MEDS: PANTOPRAZOLE 40 MG TABLET PO ×2 (08:19→21:02)
[2020-07-21] MEDS: MULTIVITAMINS THERAPEUTIC TAB (*BKC) 1 TABLET PO (08:19)
[2020-07-21] MEDS: FUROSEMIDE 40 MG TABLET PO (08:19)
[2020-07-21] MEDS: PREGABALIN (*CRX) 75 MG CAPSULE PO ×2 (08:20→17:55)
[2020-07-21] MEDS: TAMSULOSIN HCL 0.4 MG CAPSULE PO (08:20)
--- NOTE | 2020-07-21 08:24 | PCNWS ---
Weekly nutritional screen. Patient is tolerating current diet with adequate intake. No nutritional needs at this time.
[2020-07-21 08:54] VITALS: BP 125/99; PULSE 70; RESP 16; TEMP 36; O2SAT 99
[2020-07-21 09:59] LABS: Glucose Point of Care 109 (65-105)
[2020-07-21] MEDS: MORPHINE SULFATE (*CRX) 4 MG/ML INJ 2 MG IV PUSH (11:35)
--- NOTE | 2020-07-21 12:30 | PM.IMPN ---
Progress Note: A&P Assessment and Plan (1) Acute blood loss anemia: Code(s): D62 - Acute posthemorrhagic anemia Status: Acute Assessment and Plan: Acute on chronic normocytic anemia. He was recently hospitalized in May 2020 and underwent blood transfusion at that time. Hemoglobin and hematocrit are even lower at this hospitalization. He has required a total of 4 units pRBC. H&H continues to slowly decline. Suspected source of anemia is from posterior left calf hematoma. Additional concern for GI component given reported episode of melena prior to presentation and positive fecal occult blood test. Monitor H&H closely. Repeat this this evening. Transfuse as needed with hemoglobin threshold <7.0= Gastroenterology has been consulted in light of occult blood in stool but holding off for surgical evaluation of hematoma Warfarin is on hold. s/p left hematoma drainage per surgery. transfused one unti 4/6 night. monitor h and h in am. if stable, will need heparin gtt bridging anticoagulation if okay iwth surgery. h and h stable this am.discused with surgeon, wants to hold off anticoagulation until furthe wound evaluation. (2) Hematoma of left lower extremity: Qualifiers: Encounter type: initial encounter Qualified Code(s): S80.12XA - Contusion of left lower leg, initial encounter Code(s): S80.12XA - Contusion of left lower leg, initial encounter Status: Acute Assessment and Plan: He has a large, dark purple hematoma of left posterior calf. He denies any recent trauma or injury. The area is exquisitely tender and leg is edematous. This is likely source for anemia. Left lower extremity CT demonstrates large subcutaneous hematoma. General surgery has been consulted and input is appreciated. s/p drainage of left calf hematoma. drain in place. Analgesics available as needed for pain (3) Occult blood in stools: Code(s): R19.5 - Other fecal abnormalities Status: Acute Assessment and Plan: Reports of melena prior to presentation. Fecal occult blood test positive on 07/16/2020. Gastroenterology is following and input is appreciated Planning for EGD, however awaiting surgical intervention of left leg hematoma as this appears to be more acute source of blood loss Continue Protonix daily Avoid NSAIDs and aspirin (4) Chronic anticoagulation: Code(s): Z79.01 - intermediate frame tender (current) use of anticoagulants Status: Acute Assessment and Plan: He is maintained on chronic warfarin for atrial fibrillation and also has a mechanical aortic valve. INR goal is 2.0-3.0. INR was 3.4 at presentation. He received 1 unit FFP on 07/15 to bring down INR for procedure planning. INR Given acute bleeding, anticoagulation is on hold. In light of mechanical valve, will consider heparin drip if H&H stabilizes. At this time, hemoglobin continues to decline, therefore will hold off on this. Continue to monitor INR daily. INR low, if h and h stable, will hold off on heparin gtt as his h and h continued to drop needing transfusion. shold off anticoagulation as surgery anticipates further wound surgery depending on his situation (5) Acute on chronic renal failure: Qualifiers: Acute renal failure type: unspecified Chronic kidney disease stage: stage 3 (moderate) Chronic kidney disease stage 3 subtype: stage 3b (GFR 30-44) Qualified Code(s): N17.9 - Acute kidney failure, unspecified; N18.32 - Chronic kidney disease, stage 3b Code(s): N17.9 - Acute kidney failure, unspecified; N18.9 - Chronic kidney disease, unspecified Status: Acute Assessment and Plan: Baseline creatinine appears to be variable, around 2.0. Creatinine upon presentation is 2.7. Suspect acute injury is multifactorial when considering diuresis, relative hypotension, and profound anemia. Renal US showed cortical thinning without hydronephrosis. Creatinine is 2.3 today.
[2020-07-21 12:52] LABS: Glucose Point of Care 143 (65-105)
--- NOTE | 2020-07-21 13:06 | PM.PNGS ---
Progress Note: A&P Assessment and Plan (1) Open wound of left lower extremity: Code(s): S81.802A - Unspecified open wound, left lower leg, initial encounter Status: Acute Assessment and Plan: Will change to Silver Gel and Mepilex transfer due to the dryness of the wound. Also will used to be gauze to try and minimize the edema. Recheck again on Friday. (2) Chronic anticoagulation: Code(s): Z79.01 - [facility] (current) use of anticoagulants Status: Acute Assessment and Plan: Okay to resume anticoagulation. I spoke with hospitalist about this. (3) Hematoma of left lower extremity: Qualifiers: Encounter type: initial encounter Qualified Code(s): S80.12XA - Contusion of left lower leg, initial encounter Code(s): S80.12XA - Contusion of left lower leg, initial encounter Status: Resolved Assessment and Plan: Evacuated and necrotic skin debrided 3 days ago, 07/18/2020 Subjective Subjective Date/Time Seen: 07/21/20 13:06 Post Op day: 3 Patient reports: still having pain Interval history: Patient seen with wound nurses and left leg wound reviewed. Patient reports leg is rolling machine tender and painful. Review of Systems Review of Systems: All systems reviewed & are unremarkable except as noted in HPI and below Constitutional: Constitutional: Denies body ache(s), Denies chills, Denies fever(s) and Denies headache(s) Cardiovascular: Cardiovascular: Denies chest pain and Denies dyspnea Respiratory: Respiratory: Denies cough and Denies dyspnea Exam Const: General: cooperative, comfortable, no acute distress, alert and awake Nutritional Appearance: average body habitus Cardio: Peripheral pulses: other (Biphasic brisk dorsalis pedis Doppler signal left foot) Extrem: Right lower extremity: lower leg (Wound is dry with muscle exposed. No necrosis. Wound more dry than expect) Objective Data Vital Signs Vital Signs: Vital Signs - 24 hr 07/20/20 14:00 07/20/20 20:00 07/21/20 05:36 Temperature 36.1 C L 36.5 C 36.6 C Pulse Rate 54 L 80 79 Respiratory Rate 16 20 20 Blood Pressure 105/52 L 128/60 141/70 H Pulse Oximetry 99 97 97 07/21/20 08:19 07/21/20 08:54 Temperature 36.0 C L Pulse Rate 68 70 Respiratory Rate 16 Blood Pressure 125/99 H Pulse Oximetry 99 Intake/Output Intake/Output: Intake & Output 07/18/20 07/19/20 07/20/20 07/21/20 23:59 23:59 23:59 23:59 Intake Total 1110 3439 2060 240 Output Total 468 180 8182 Balance 1010 2589 -810 240 Meds/Results Medications: Active Medications Generic Name Dose Route Start Last Admin Trade Name Freq PRN Reason Stop Dose Admin Acetaminophen 500 mg 07/18/20 11:51 Acetaminophen 500 Mg Tablet PO Q6H PRN Mild Pain (1-3) or Fever Hydrocodone Bitart/Acetaminophen 1 tab 07/18/20 11:51 07/20/20 09:04 Hydrocodone/Acetaminophen (*Crx) 5-325 Mg Tablet PO 1 tab Q4H PRN Administration Pain Rated 4-6 Hydrocodone Bitart/Acetaminophen 1 tab 07/18/20 11:51 07/21/20 12:43 Hydrocodone/Acetaminophen (*Crx) 7.5-325 Mg Tablet PO 1 tab Q4H PRN Administration Pain Rated 7-10 Ascorbic Acid 500 mg 07/13/20 09:00 07/21/20 08:19 Ascorbic Acid 500 Mg Tablet PO 500 mg BID MARY Administration Atorvastatin Calcium 40 mg 07/12/20 21:10 07/20/20 20:23 Atorvastatin 40 Mg Tablet PO 40 mg HS MARY Administration Bisacodyl 10 mg 07/12/20 20:58 Bisacodyl 10 Mg Suppository RECTAL DAILY PRN Constipation Clotrimazole 1 applic 07/13/20 11:00 07/19/20 22:47 Betamethasone/Clotrimazole Cr 15 Gm Tube TOPICAL Not Given Q12HR MARY Cyclobenzaprine HCl 5 mg 07/12/20 20:58 Cyclobenzaprine Hcl 5 Mg Tablet PO TID PRN Muscle Spasm Dextrose 12.5 gm 07/12/20 21:00 Dextrose 50% 25 Gm/50 Ml Syringe IV PUSH PRN PRN Hypoglycemia Protocol Duloxetine HCl 30 mg 07/13/20 09:00 07/21/20 08:19 Duloxetine Hcl
--- NOTE | 2020-07-21 13:38 | PC.NURSE ---
On 07/21/20, the student, [Keith Villa], provided care and completed [facility] documentation on this patient. I have reviewed the student's documentation and agree with the findings.
[2020-07-21] MEDS: SILVERGEL (ELTA) 45 ML 1 APPLIC TOPICAL (13:48)
--- NOTE | 2020-07-21 13:48 | P.PNNP_ITS ---
Progress Note: A&P Assessment and Plan (1) ANDRADE (acute kidney injury): Code(s): N17.9 - Acute kidney failure, unspecified Status: Acute Assessment and Plan: * several possible issues/factors: - severe anemia - relative hypotension (100s systolic on presentation)/prerenal issues - concurrent use of diuretics prior to admission -infection/inflammation from leg wounds? * could be a component of disease progression as well * renal ultrasound without any acute issue -- findings c/w CKD * urine electrolytes demonstrated pre-renal azotemia * His creatinine is up and down. Today it is 2.1. he may have reached His baseline. (2) Chronic kidney disease, stage IV (severe): Code(s): N18.4 - Chronic kidney disease, stage 4 (severe) Status: Chronic Assessment and Plan: * normal creatinine in 2018 * however, bout of ANDRADE due to sepsis in October 2019 and appears to have had CKD since that time * baseline creatinine ~ 1.6 - 2.1mg/dl since January 2020 * contributing factors include CHF with need for chronic diuretics, diabetes, age, and vascular disease (3) Anemia: Code(s): D64.9 - Anemia, unspecified Status: Acute Assessment and Plan: * due to a combination of previous hematuria, supratherapuetic INR, hematoma, low platelet count, and melena * PRBC transfusion per protocol * holding coumadin * Gastroenterololgy following -- waiting for INR to come down prior to any intervention/procedure. INR is now 1.5. * on PPI * . Retic only 1.7. On Epogen. * following H/H. Today it is 8.1 (4) Hematoma of left lower extremity: Qualifiers: Encounter type: initial encounter Qualified Code(s): S80.12XA - Contusion of left lower leg, initial encounter Code(s): S80.12XA - Contusion of left lower leg, initial encounter Status: Resolved Assessment and Plan: * Status post drainage. * The drainage tube is out now. (5) Chronic venous insufficiency of lower extremity: Code(s): I87.2 - Venous insufficiency (chronic) (peripheral) Status: Chronic Assessment and Plan: * wound care consulted * pain control (6) CHF (congestive heart failure): Qualifiers: Heart failure chronicity: acute on chronic Heart failure type: unspeci fied Qualified Code(s): I50.9 - Heart failure, unspecified Code(s): I50.9 - Heart failure, unspecified Status: Acute Assessment and Plan: * Compensated. * on oral lasix 40 mg a day Subjective Date/time seen: 07/21/20 13:48 Interval history: Patient feels okay this morning. no complaints. He denies a Review of Systems Cardiovascular: Cardiovascular: Reports no additional cardiovascular complaints Respiratory: Respiratory: Reports no additional respiratory complaints Gastrointestinal: Gastrointestinal: Reports no additional gastrointestinal complaints Genitourinary: Genitourinary: Reports no additional male genitourinary complaints Exam Narrative: Exam Narrative: General: Elderly male in NAD Heart: normal S1 and S2; no rub Lungs: clear to auscultation Abdomen: soft, nontender, nondistended, positive bowel sounds Extremities: 1 - 2+ edema and no cyanosis Skin: chronic venous stasis changes noted; decreased weeping from multiple wounds/scabs/blisters; Bandage over the hematoma operation site Objective Data Vital Signs Vit
--- NOTE | 2020-07-21 13:48 | PM.PNNEP ---
Progress Note: A&P Assessment and Plan (1) ANDRADE (acute kidney injury): Code(s): N17.9 - Acute kidney failure, unspecified Status: Acute Assessment and Plan: several possible issues/factors: - severe anemia - relative hypotension (100s systolic on presentation)/prerenal issues - concurrent use of diuretics prior to admission -infection/inflammation from leg wounds? could be a component of disease progression as well renal ultrasound without any acute issue -- findings c/w CKD urine electrolytes demonstrated pre-renal azotemia His creatinine is up and down. Today it is 2.1. he may have reached His baseline. (2) Chronic kidney disease, stage IV (severe): Code(s): N18.4 - Chronic kidney disease, stage 4 (severe) Status: Chronic Assessment and Plan: normal creatinine in 2019 however, bout of ANDRADE due to sepsis in October 2019 and appears to have had CKD since that time baseline creatinine ~ 1.6 - 2.1mg/dl since January 2020 contributing factors include CHF with need for chronic diuretics, diabetes, age, and vascular disease (3) Anemia: Code(s): D64.9 - Anemia, unspecified Status: Acute Assessment and Plan: due to a combination of previous hematuria, supratherapuetic INR, hematoma, low platelet count, and melena PRBC transfusion per protocol holding coumadin Gastroenterololgy following -- waiting for INR to come down prior to any intervention/procedure. INR is now 1.5. on PPI . Retic only 1.7. On Epogen. following H/H. Today it is 8.1 (4) Hematoma of left lower extremity: Qualifiers: Encounter type: initial encounter Qualified Code(s): S80.12XA - Contusion of left lower leg, initial encounter Code(s): S80.12XA - Contusion of left lower leg, initial encounter Status: Resolved Assessment and Plan: Status post drainage. The drainage tube is out now. (5) Chronic venous insufficiency of lower extremity: Code(s): I87.2 - Venous insufficiency (chronic) (peripheral) Status: Chronic Assessment and Plan: wound care consulted pain control (6) CHF (congestive heart failure): Qualifiers: Heart failure chronicity: acute on chronic Heart failure type: unspecified Qualified Code(s): I50.9 - Heart failure, unspecified Code(s): I50.9 - Heart failure, unspecified Status: Acute Assessment and Plan: Compensated. on oral lasix 40 mg a day Subjective Date/time seen: 07/21/20 13:48 Interval history: Patient feels okay this morning. no complaints. He denies a Review of Systems Cardiovascular: Cardiovascular: Reports no additional cardiovascular complaints Respiratory: Respiratory: Reports no additional respiratory complaints Gastrointestinal: Gastrointestinal: Reports no additional gastrointestinal complaints Genitourinary: Genitourinary: Reports no additional male genitourinary complaints Exam Narrative: Exam Narrative: General: Elderly male in NAD Heart: normal S1 and S2; no rub Lungs: clear to auscultation Abdomen: soft, nontender, nondistended, positive bowel sounds Extremities: 1 - 2+ edema and no cyanosis Skin: chronic venous stasis changes noted; decreased weeping from multiple wounds/scabs/blisters; Bandage over the hematoma operation site Objective Data Vital Signs Vital Signs: Vital Signs - 24 hr 07/20/20 14:00 07/20/20 20:00 07/21/20 05:36 Temperature 36.1 C L 36.5 C 36.6 C Pulse Rate 54 L 80 79 Respiratory Rate 16 20 20 Blood Pressure 105/52 L 128/60 141/70 H Pulse Oximetry 99 97 97 07/21/20 08:19 07/21/20 08:54 Temperature 36.0 C L Pulse Rate 68 70 Respiratory Rate 16 Blood Pressure 125/99 H Pulse Oximetry 99 Intake/Output Intake/Output: Intake & Output 07/18/20 07/19/20 07/20/20 07/21/20 23:59 23:59 23:59 23:59 Intake Total 1110 3439 2060 24
[2020-07-21] MEDS: EPOETIN ALFA-EPBX 10,000 UNITS/ML VIAL 10000 UNITS SUB-Q (13:50)
[2020-07-21 14:05] VITALS: BP 146/56; PULSE 61; RESP 14; TEMP 36.7; O2SAT 99
[2020-07-21 14:28] LABS: INR 1.1; Prothrombin Time 15.2 Seconds (11.1-14.7)
[2020-07-21] MEDS: WARFARIN (*PBKC) 2.5 MG TABLET PO (17:55)
[2020-07-21 18:00] LABS: Glucose Point of Care 162 (65-105)
[2020-07-21 19:49] LABS: SARS-CoV-2 RNA PCR Negative
[2020-07-21] MEDS: MELATONIN 3 MG TABLET 6 MG PO (21:02)
[2020-07-21] MEDS: ATORVASTATIN 40 MG TABLET PO (21:02)
[2020-07-21 21:04] VITALS: PULSE 88
[2020-07-21] MEDS: traZODone HCL 25 MG TABLET PO (21:04)
[2020-07-21 21:20] LABS: Glucose Point of Care 178 (65-105)
[2020-07-21 21:38] VITALS: BP 146/68; PULSE 88; RESP 16; TEMP 36.6; O2SAT 96
[2020-07-22 05:30] LABS: Basophils Percent Auto 0.1 % (0.2-1.2); Eosinophils Absolute Auto 0.6 K/mm3 (0-0.3); Eosinophils Percent Auto 8.2 % (0-4.4); Hematocrit 27.1 % (42.0-52.0); Hemoglobin 8.5 g/dL (14.0-18.0); Immature Granulocyte Absolute 0.09 K/mm3 (0.00-0.031); Immature Granulocyte Percent A 1.3 % (0-0.5); Lymphocytes Absolute Auto 0.59 K/mm3 (0.9-3.2); Lymphocytes Percent Auto 8.8 % (18.3-44.2); Mean Corpuscular HGB Conc 31.4 g/dl (32-36); Mean Corpuscular Hemoglobin 28.1 pg (26-34); Mean Corpuscular Volume 89.4 fl (80-100); Mean Platelet Volume 10.6 fl (7.4-10.4); Monocytes Absolute Auto 0.7 K/mm3 (0.1-0.6); Neutrophils Absolute Auto 4.8 K/mm3 (1.3-6.7); Neutrophils Percent Auto 71.6 % (45.5-73.1); Platelet Count Result 162 k/mm3 (150-375); Red Blood Count 3.03 M/mm3 (4.6-6.20); Red Cell Distribution Width 15.3 % (11.5-14.5); White Blood Count 6.7 K/mm3 (4.5-10.0)
[2020-07-22 05:50] LABS: Anion Gap 4 mmol/L (8-16); Blood Urea Nitrogen 52 mg/dL (9-20); Calcium 9.1 mg/dL (8.4-10.2); Carbon Dioxide 29 mmol/L (22-30); Chloride 104 mmol/L (98-107); Estimated CRCL calculation 31 ml/min; Estimated Glomerular Filt Rate 31; Glucose 118 mg/dL (75-110); Potassium 4.5 mmol/L (3.4-5.0); Sodium 137 mmol/L (137-145)
[2020-07-22 06:00] VITALS: BP 123/54; PULSE 88; RESP 16; TEMP 36.6; O2SAT 98
--- NOTE | 2020-07-22 07:21 | WPDPN ---
Progress Note: A&P Assessment and Plan (1) Open wound of left lower extremity: Code(s): S81.802A - Unspecified open wound, left lower leg, initial encounter Status: Acute Assessment and Plan: Monitoring wound status. We will tentatively plan for split-thickness skin graft to left lower extremity a this coming week if okay with hospitalist / other services. I had a lengthy discussion with him today about his options. Went over the risks, benefits, alternatives of each of these options. Made sure answered all of his questions to his satisfaction. He would like proceed as above. He voices understanding. We will proceed. (2) Hematoma of left lower extremity: Qualifiers: Encounter type: initial encounter Qualified Code(s): S80.12XA - Contusion of left lower leg, initial encounter Code(s): S80.12XA - Contusion of left lower leg, initial encounter Status: Resolved Exam Narrative: Exam Narrative: Left lower extremity dressing in place. C/D/I. Objective Data Vital Signs Vital Signs: Vital Signs - 24 hr 07/21/20 08:19 07/21/20 08:54 07/21/20 14:05 Temperature 36.0 C L 36.7 C Pulse Rate 68 70 61 Respiratory Rate 16 14 Blood Pressure 125/99 H 146/56 H Pulse Oximetry 99 99 07/21/20 21:04 07/21/20 21:38 07/22/20 06:00 Temperature 36.6 C 36.6 C Pulse Rate 88 88 88 Respiratory Rate 16 16 Blood Pressure 146/68 H 123/54 L Pulse Oximetry 96 98 Intake/Output Intake/Output: Intake & Output 07/19/20 07/20/20 07/21/20 07/22/20 23:59 23:59 23:59 23:59 Intake Total 3439 2060 920 250 Output Total 850 2875 350 Balance 2679 -272 077 250 Meds/Results Medications: Active Medications Generic Name Dose Route Start Last Admin Trade Name Freq PRN Reason Stop Dose Admin Acetaminophen 500 mg 07/18/20 11:51 Acetaminophen 500 Mg Tablet PO Q6H PRN Mild Pain (1-3) or Fever Hydrocodone Bitart/Acetaminophen 1 tab 07/18/20 11:51 07/20/20 09:04 Hydrocodone/Acetaminophen (*Crx) 5-325 Mg Tablet PO 1 tab Q4H PRN Administration Pain Rated 4-6 Hydrocodone Bitart/Acetaminophen 1 tab 07/18/20 11:51 07/21/20 17:55 Hydrocodone/Acetaminophen (*Crx) 7.5-325 Mg Tablet PO 1 tab Q4H PRN Administration Pain Rated 7-10 Ascorbic Acid 500 mg 07/13/20 09:00 07/21/20 17:55 Ascorbic Acid 500 Mg Tablet PO 500 mg BID MARY Administration Atorvastatin Calcium 40 mg 07/12/20 21:10 07/21/20 21:02 Atorvastatin 40 Mg Tablet PO 40 mg HS [facility] Administration Bisacodyl 10 mg 07/12/20 20:58 Bisacodyl 10 Mg Suppository RECTAL DAILY PRN Constipation Clotrimazole 1 applic 07/13/20 11:00 07/19/20 22:47 Betamethasone/Clotrimazole Cr 15 Gm Tube TOPICAL Not Given Q12HR [facility] Cyclobenzaprine HCl 5 mg 07/12/20 20:58 Cyclobenzaprine Hcl 5 Mg Tablet PO TID PRN Muscle Spasm Dextrose 12.5 gm 07/12/20 21:00 Dextrose 50% 25 Gm/50 Ml Syringe IV PUSH PRN PRN Hypoglycemia Protocol Duloxetine HCl 30 mg 07/13/20 09:00 07/21/20 08:19 Duloxetine Hcl 30 Mg Capsule.Dr PO 30 mg DAILY MARY Administration Epoetin Zaid-epbx 10,000 units 07/19/20 14:15 07/21/20 13:50 Epoetin Zaid-Epbx 10,000 Units/Ml Vial SUB-Q 10,000 units MOWEFR [facility] Administration Ferrous Sulfate 324 mg 07/13/20 08:00 07/21/20 08:19 Ferrous Sulfate 324 Mg Tablet PO 324 mg DAILY@0800 MARY Administration Finasteride 5 mg 07/13/20 09:00 07/21/20 08:19 Finasteride 5 Mg Tablet PO 5 mg DAILY MARY Administration Furosemide 40 mg 07/13/20 09:00 07/21/20 08:19 Furosemide 40 Mg Tablet PO 40 mg DAILY MARY Administration Glucagon 1 mg 07/12/20 21:00 Glucagon For Inj 1 Mg Vial IM PRN PRN Hypoglycemia Protocol Glucose 15 gm 07/12/20 21:00 Glucose Oral Gel 15 Gm Of Glucse In 37.5 Gm Tube PO PRN PRN Hypoglycemia Protocol Hydroxyzine HCl 25 mg 07/12/
[2020-07-22 08:17] VITALS: PULSE 68
[2020-07-22] MEDS: hydrOXYzine HCL 25 MG TABLET PO ×4 (08:17→20:00)
[2020-07-22] MEDS: TAMSULOSIN HCL 0.4 MG CAPSULE PO (08:17)
[2020-07-22] MEDS: ASCORBIC ACID 500 MG TABLET PO ×2 (08:17→17:13)
[2020-07-22] MEDS: PANTOPRAZOLE 40 MG TABLET PO ×2 (08:17→20:01)
[2020-07-22] MEDS: DULoxetine HCL 30 MG CAPSULE.DR PO (08:17)
[2020-07-22] MEDS: FUROSEMIDE 40 MG TABLET PO (08:17)
[2020-07-22] MEDS: FINASTERIDE 5 MG TABLET PO (08:17)
[2020-07-22] MEDS: PREGABALIN (*CRX) 75 MG CAPSULE PO ×2 (08:17→17:13)
[2020-07-22] MEDS: MULTIVITAMINS THERAPEUTIC TAB (*BKC) 1 TABLET PO (08:17)
[2020-07-22] MEDS: FERROUS SULFATE 324 MG TABLET PO (08:17)
[2020-07-22] MEDS: METOPROLOL TARTRATE 12.5 MG TABLET PO ×2 (08:17→20:02)
[2020-07-22] MEDS: SILVERGEL (ELTA) 45 ML 1 APPLIC TOPICAL (08:18)
[2020-07-22] MEDS: polyethylene glycoL 3350 17 GM POWD.PACK PO (08:18)
[2020-07-22 09:28] LABS: Glucose Point of Care 131 (65-105)
--- NOTE | 2020-07-22 10:19 | PM.PNNEP ---
Progress Note: A&P Assessment and Plan (1) ANDRADE (acute kidney injury): Code(s): N17.9 - Acute kidney failure, unspecified Status: Acute Assessment and Plan: several possible issues/factors: - severe anemia - relative hypotension (100s systolic on presentation)/prerenal issues - concurrent use of diuretics prior to admission -infection/inflammation from leg wounds? He has reached his baseline. (2) Chronic kidney disease, stage IV (severe): Code(s): N18.4 - Chronic kidney disease, stage 4 (severe) Status: Chronic Assessment and Plan: This is due to chronic diuretics, diabetes, age, and vascular disease he is at his baseline (3) Anemia: Code(s): D64.9 - Anemia, unspecified Status: Acute Assessment and Plan: due to a combination of previous hematuria, supratherapuetic INR, hematoma, low platelet count, and melena On Epogen. following H/H. Today it is 8.5 (4) Hematoma of left lower extremity: Qualifiers: Encounter type: initial encounter Qualified Code(s): S80.12XA - Contusion of left lower leg, initial encounter Code(s): S80.12XA - Contusion of left lower leg, initial encounter Status: Resolved Assessment and Plan: Status post drainage. The drainage tube is out now. (5) Chronic venous insufficiency of lower extremity: Code(s): I87.2 - Venous insufficiency (chronic) (peripheral) Status: Chronic Assessment and Plan: wound care consulted pain control (6) CHF (congestive heart failure): Qualifiers: Heart failure chronicity: acute on chronic Heart failure type: unspecified Qualified Code(s): I50.9 - Heart failure, unspecified Code(s): I50.9 - Heart failure, unspecified Status: Acute Assessment and Plan: today he is a little short of breath. I will check a chest x-ray. on oral lasix 40 mg a day Subjective Date/time seen: 07/22/20 10:19 Interval history: Patient feels a little short of breath today. No cough. No fever. Review of Systems Cardiovascular: Cardiovascular: Reports no additional cardiovascular complaints Respiratory: Respiratory: Reports no additional respiratory complaints Gastrointestinal: Gastrointestinal: Reports no additional gastrointestinal complaints Genitourinary: Genitourinary: Reports no additional male genitourinary complaints Exam Narrative: Exam Narrative: General: Elderly male in NAD Heart: normal S1 and S2; no rub Lungs: clear Abdomen: soft, nontender, nondistended, positive bowel sounds Extremities: 1 + edema and no cyanosis Skin: chronic venous stasis changes noted; decreased weeping from multiple wounds/scabs/blisters; Bandage over the hematoma operation site Objective Data Vital Signs Vital Signs: Vital Signs - 24 hr 07/21/20 14:05 07/21/20 21:04 07/21/20 21:38 Temperature 36.7 C 36.6 C Pulse Rate 61 88 88 Respiratory Rate 14 16 Blood Pressure 146/56 H 146/68 H Pulse Oximetry 99 96 07/22/20 06:00 07/22/20 08:17 Temperature 36.6 C Pulse Rate 88 68 Respiratory Rate 16 Blood Pressure 123/54 L Pulse Oximetry 98 Intake/Output Intake/Output: Intake & Output 07/19/20 07/20/20 07/21/20 07/22/20 23:59 23:59 23:59 23:59 Intake Total 3439 2060 920 250 Output Total 850 2875 350 550 Balance 2589 -815 570 -300 Meds/Results Medications: Active Medications Generic Name Dose Route Start Last Admin Trade Name Freq PRN Reason Stop Dose Admin Acetaminophen 500 mg 07/18/20 11:51 Acetaminophen 500 Mg Tablet PO Q6H PRN Mild Pain (1-3) or Fever Hydrocodone Bitart/Acetaminophen 1 tab 07/18/20 11:51 07/20/20 09:04 Hydrocodone/Acetaminophen (*Crx) 5-325 Mg Tablet PO 1 tab Q4H PRN Administration Pain Rated 4-6 Hydrocodone Bitart/Acetaminophen 1 tab 07/18/20 11:51 07/21/20 17:55 Hydroc
[2020-07-22 12:16] LABS: Glucose Point of Care 168 (65-105)
--- NOTE | 2020-07-22 12:18 | P.PNIM_ITS ---
Progress Note: A&P Assessment and Plan (1) Acute blood loss anemia: Code(s): D62 - Acute posthemorrhagic anemia Status: Acute Assessment and Plan: Acute on chronic normocytic anemia. He was recently hospitalized in May 2020 and underwent blood transfusion at that time. Hemoglobin and hematocrit are even lower at this hospitalization. He has required a total of 4 units pRBC. H&H continues to slowly decline. Suspected source of anemia is from posterior left calf hematoma. Additional concern for GI component given reported episode of melena prior to presentation and positive fecal occult blood test. * Monitor H&H closely. Repeat this this evening. Transfuse as needed with hemoglobin threshold <7.0= * Gastroenterology has been consulted in light of occult blood in stool but holding off for surgical evaluation of hematoma * Warfarin is on hold. * s/p left hematoma drainage per surgery. * transfused one unti 4/6 night. monitor h and h in am. if stable, will need heparin gtt bridging anticoagulation if okay iwth surgery. * h and h stable * suregery okay with anticoauglation. warfarin restarted. * plastics plans skin graftign. will do heparin without bolus. hold warfarin for periprocedureal briding. (2) Hematoma of left lower extremity: Qualifiers: Encounter type: initial encounter Qualified Code(s): S80.12XA - Contusion of left lower leg, initial encounter Code(s): S80.12XA - Contusion of left lower leg, initial encounter Status: Resolved Assessment and Plan: He has a large, dark purple hematoma of left posterior calf. He denies any recent trauma or injury. The area is exquisitely tender and leg is edematous. This is likely source for anemia. Left lower extremity CT demonstrates large subcutaneous hematoma. * General surgery has been consulted and input is appreciated. s/p drainage of left calf hematoma. * drain in place. * Analgesics available as needed for pain (3) Occult blood in stools: Code(s): R19.5 - Other fecal abnormalities Status: Acute Assessment and Plan: Reports of melena prior to presentation. Fecal occult blood test positive on 07/16/2020. * Gastroenterology is following and input is appreciated * Planning for EGD, however awaiting surgical intervention of left leg hematoma as this appears to be more acute source of blood loss * Continue Protonix daily * Avoid NSAIDs and aspirin (4) Chronic anticoagulation: Code(s): Z79.01 - skilled nursing (current) use of anticoagulants Status: Acute Assessment and Plan: He is maintained on chronic warfarin for atrial fibrillation and also has a mechanical aortic valve. INR goal is 2.0-3.0. INR was 3.4 at presentation. He received 1 unit FFP on 07/15 to bring down INR for procedure planning. INR * Given acute bleeding, anticoagulation is on hold. * In light of mechanical valve, will consider heparin drip if H&H stabilizes. At this time, hemoglobin continues to decline, therefore will hold off on this. * Continue to monitor INR daily. * INR low, if h and h stable, will hold off on heparin gtt as his h and h continued to drop needing transfusion. * shold off anticoagulation as surgery anticipates further wound surgery depending on his situation * see above. start heaprin for bridign anticoagulation (5) Acute on chronic renal failure: Qualifiers: Acute renal failure type: unspecified Chronic kidney disease stage: stage 3 (moderate) Chronic kidney disease stage 3 subtype: stage 3b (GFR 30-44) Qualified Code(s): N17.9 - Acute kidney failure,
[2020-07-22 13:38] LABS: Basophils Percent Auto 0.1 % (0.2-1.2); Eosinophils Absolute Auto 0.5 K/mm3 (0-0.3); Eosinophils Percent Auto 7.9 % (0-4.4); Hematocrit 27.1 % (42.0-52.0); Hemoglobin 8.6 g/dL (14.0-18.0); Immature Granulocyte Absolute 0.06 K/mm3 (0.00-0.031); Immature Granulocyte Percent A 0.9 % (0-0.5); Lymphocytes Absolute Auto 0.51 K/mm3 (0.9-3.2); Lymphocytes Percent Auto 7.4 % (18.3-44.2); Mean Corpuscular HGB Conc 31.7 g/dl (32-36); Mean Corpuscular Hemoglobin 28.5 pg (26-34); Mean Corpuscular Volume 89.7 fl (80-100); Mean Platelet Volume 10.7 fl (7.4-10.4); Monocytes Absolute Auto 0.6 K/mm3 (0.1-0.6); Monocytes Percent Auto 8.7 % (2.6-8.5); Neutrophils Absolute Auto 5.2 K/mm3 (1.3-6.7); Platelet Count Result 159 k/mm3 (150-375); Red Blood Count 3.02 M/mm3 (4.6-6.20); Red Cell Distribution Width 15.4 % (11.5-14.5); White Blood Count 6.9 K/mm3 (4.5-10.0)
[2020-07-22 13:51] LABS: INR 1.2; Prothrombin Time 16.1 Seconds (11.1-14.7)
[2020-07-22 13:52] LABS: Partial Thromboplastin Time 38.3 SECONDS (22.3-36.8)
[2020-07-22 13:58] VITALS: BP 133/61; PULSE 73; RESP 16; TEMP 36.2; O2SAT 95
[2020-07-22] MEDS: HEPARIN SOD/D5W 100 UNITS/ML 25,000 UNITS/250 ML BAG 15 UNITS IV CONT (14:18)
[2020-07-22 17:27] LABS: Glucose Point of Care 117 (65-105)
[2020-07-22] MEDS: HYDROcodone/acetaminophen (*CRX) 7.5-325 MG TABLET 1 TAB PO (19:49)
[2020-07-22] MEDS: MELATONIN 3 MG TABLET 6 MG PO (20:00)
[2020-07-22] MEDS: ATORVASTATIN 40 MG TABLET PO (20:00)
[2020-07-22] MEDS: SENNOSIDES 8.6 MG TABLET PO (20:01)
[2020-07-22] MEDS: traZODone HCL 25 MG TABLET PO (20:01)
[2020-07-22 20:02] VITALS: PULSE 73
[2020-07-22 20:54] LABS: Partial Thromboplastin Time 86.8 SECONDS (22.3-36.8)
[2020-07-22 20:59] LABS: Glucose Point of Care 155 (65-105)
--- NOTE | 2020-07-22 21:09 | PC.NURSE ---
Timed PTT at 2020 is 86.8 per protocol no bolus and change in rate. Next timed PTT is at 0230
[2020-07-22 21:34] VITALS: BP 140/61; PULSE 74; RESP 18; TEMP 36.7; O2SAT 97
[2020-07-23 02:36] LABS: Basophils Percent Auto 0.3 % (0.2-1.2); Eosinophils Absolute Auto 0.6 K/mm3 (0-0.3); Eosinophils Percent Auto 7.9 % (0-4.4); Hematocrit 25.2 % (42.0-52.0); Hemoglobin 8.1 g/dL (14.0-18.0); Immature Granulocyte Absolute 0.08 K/mm3 (0.00-0.031); Immature Granulocyte Percent A 1.1 % (0-0.5); Lymphocytes Absolute Auto 0.77 K/mm3 (0.9-3.2); Lymphocytes Percent Auto 10.1 % (18.3-44.2); Mean Corpuscular HGB Conc 32.1 g/dl (32-36); Mean Corpuscular Hemoglobin 28.1 pg (26-34); Mean Corpuscular Volume 87.5 fl (80-100); Mean Platelet Volume 10.6 fl (7.4-10.4); Monocytes Absolute Auto 0.7 K/mm3 (0.1-0.6); Monocytes Percent Auto 8.8 % (2.6-8.5); Neutrophils Absolute Auto 5.5 K/mm3 (1.3-6.7); Neutrophils Percent Auto 71.8 % (45.5-73.1); Platelet Count Result 156 k/mm3 (150-375); Red Blood Count 2.88 M/mm3 (4.6-6.20); Red Cell Distribution Width 15.1 % (11.5-14.5); White Blood Count 7.6 K/mm3 (4.5-10.0)
[2020-07-23 02:45] LABS: Partial Thromboplastin Time 136.2 SECONDS (22.3-36.8)
[2020-07-23 02:47] LABS: Albumin Level 3.3 g/dL (3.5-5.1); Anion Gap 4 mmol/L (8-16); Blood Urea Nitrogen 48 mg/dL (9-20); Calcium 8.8 mg/dL (8.4-10.2); Carbon Dioxide 30 mmol/L (22-30); Chloride 101 mmol/L (98-107); Estimated CRCL calculation 31 ml/min; Estimated Glomerular Filt Rate 31; Glucose 125 mg/dL (75-110); Phosphorus 4.4 mg/dL (2.5-4.5); Potassium 4.6 mmol/L (3.4-5.0); Sodium 135 mmol/L (137-145)
[2020-07-23] MEDS: HEPARIN SOD/D5W 100 UNITS/ML 25,000 UNITS/250 ML BAG 13 UNITS IV CONT (05:33)
[2020-07-23 06:00] VITALS: BP 146/74; PULSE 76; RESP 18; TEMP 36.6; O2SAT 95
[2020-07-23 08:05] LABS: Glucose Point of Care 126 (65-105)
--- NOTE | 2020-07-23 09:22 | PM.PNNEP ---
Progress Note: A&P Assessment and Plan (1) ANDRADE (acute kidney injury): Code(s): N17.9 - Acute kidney failure, unspecified Status: Acute Assessment and Plan: several possible issues/factors: - severe anemia - relative hypotension (100s systolic on presentation)/prerenal issues - concurrent use of diuretics prior to admission -infection/inflammation from leg wounds? He has reached his baseline in the high 1s. (2) Chronic kidney disease, stage IV (severe): Code(s): N18.4 - Chronic kidney disease, stage 4 (severe) Status: Chronic Assessment and Plan: This is due to chronic diuretics, diabetes, age, and vascular disease he is at his baseline (3) Anemia: Code(s): D64.9 - Anemia, unspecified Status: Acute Assessment and Plan: due to a combination of previous hematuria, supratherapuetic INR, hematoma, low platelet count, and melena On Epogen. following H/H. Today it is 8.1 (4) Hematoma of left lower extremity: Qualifiers: Encounter type: initial encounter Qualified Code(s): S80.12XA - Contusion of left lower leg, initial encounter Code(s): S80.12XA - Contusion of left lower leg, initial encounter Status: Resolved Assessment and Plan: Status post drainage. The drainage tube is out now. (5) Chronic venous insufficiency of lower extremity: Code(s): I87.2 - Venous insufficiency (chronic) (peripheral) Status: Chronic Assessment and Plan: wound care consulted pain control (6) CHF (congestive heart failure): Qualifiers: Heart failure chronicity: acute on chronic Heart failure type: unspecified Qualified Code(s): I50.9 - Heart failure, unspecified Code(s): I50.9 - Heart failure, unspecified Status: Acute Assessment and Plan: He was a little short of breath yesterday. Chest x-ray shows volume overload on oral lasix 40 mg a day Will increase Lasix to twice a day Subjective Date/time seen: 07/23/20 09:22 Interval history: Patient feels okay today. No chest pain or shortness of breath. Review of Systems Cardiovascular: Cardiovascular: Reports no additional cardiovascular complaints Respiratory: Respiratory: Reports no additional respiratory complaints Gastrointestinal: Gastrointestinal: Reports no additional gastrointestinal complaints Genitourinary: Genitourinary: Reports no additional male genitourinary complaints Exam Narrative: Exam Narrative: General: Elderly male in NAD Heart: normal S1 and S2; no rub Lungs: clear Abdomen: soft, nontender, nondistended, positive bowel sounds Extremities: 1 + edema and no cyanosis Skin: chronic venous stasis changes noted; decreased weeping from multiple wounds/scabs/blisters; Bandage over the hematoma operation site Objective Data Vital Signs Vital Signs: Vital Signs - 24 hr 07/22/20 13:58 07/22/20 20:02 07/22/20 21:34 Temperature 36.2 C L 36.7 C Pulse Rate 73 73 74 Respiratory Rate 16 18 Blood Pressure 133/61 140/61 Pulse Oximetry 95 97 07/23/20 06:00 Temperature 36.6 C Pulse Rate 76 Respiratory Rate 18 Blood Pressure 146/74 H Pulse Oximetry 95 Intake/Output Intake/Output: Intake & Output 07/20/20 07/21/20 07/22/20 07/23/20 23:59 23:59 23:59 23:59 Intake Total 2060 920 1420 500 Output Total 2875 350 1001 1100 Balance -815 570 419 -600 Meds/Results Medications: Active Medications Generic Name Dose Route Start Last Admin Trade Name Freq PRN Reason Stop Dose Admin Acetaminophen 500 mg 07/18/20 11:51 Acetaminophen 500 Mg Tablet PO Q6H PRN Mild Pain (1-3) or Fever Hydrocodone Bitart/Acetaminophen 1 tab 07/18/20 11:51 07/20/20 09:04 Hydrocodone/Acetaminophen (*Crx) 5-325 Mg Tablet PO 1 tab Q4H PRN Administration Pain Rated 4-6 Hydrocodone Bitart/Acetaminophen 1 tab
[2020-07-23] MEDS: HYDROcodone/acetaminophen (*CRX) 7.5-325 MG TABLET 1 TAB PO ×3 (09:46→20:59)
[2020-07-23] MEDS: PREGABALIN (*CRX) 75 MG CAPSULE PO ×2 (09:47→16:43)
[2020-07-23] MEDS: FERROUS SULFATE 324 MG TABLET PO (09:47)
[2020-07-23] MEDS: PANTOPRAZOLE 40 MG TABLET PO ×2 (09:47→20:58)
[2020-07-23 09:48] VITALS: PULSE 76
[2020-07-23] MEDS: METOPROLOL TARTRATE 12.5 MG TABLET PO (09:48)
[2020-07-23] MEDS: DULoxetine HCL 30 MG CAPSULE.DR PO (09:48)
[2020-07-23] MEDS: hydrOXYzine HCL 25 MG TABLET PO ×4 (09:48→20:58)
[2020-07-23] MEDS: ASCORBIC ACID 500 MG TABLET PO ×2 (09:49→16:44)
[2020-07-23] MEDS: TAMSULOSIN HCL 0.4 MG CAPSULE PO (09:49)
[2020-07-23] MEDS: MULTIVITAMINS THERAPEUTIC TAB (*BKC) 1 TABLET PO (09:49)
[2020-07-23] MEDS: FINASTERIDE 5 MG TABLET PO (09:49)
[2020-07-23] MEDS: SILVERGEL (ELTA) 45 ML 1 APPLIC TOPICAL (09:52)
[2020-07-23 10:25] LABS: Partial Thromboplastin Time 92.2 SECONDS (22.3-36.8)
--- NOTE | 2020-07-23 10:30 | PC.NURSE ---
no change in heparin rate, order placed for repeat PTT level in 6 hours
[2020-07-23] MEDS: FUROSEMIDE 40 MG TABLET PO ×2 (11:48→16:44)
[2020-07-23 12:31] LABS: Glucose Point of Care 132 (65-105)
[2020-07-23 14:00] VITALS: BP 124/63; PULSE 69; RESP 18; TEMP 36.2; O2SAT 97
[2020-07-23 16:59] LABS: Partial Thromboplastin Time 73.6 SECONDS (22.3-36.8)
[2020-07-23 17:14] LABS: Glucose Point of Care 183 (65-105)
--- NOTE | 2020-07-23 17:32 | PC.NURSE ---
heparin drip, 2nd therapeutic result, PTT placed on daily schedule
[2020-07-23 19:41] VITALS: PULSE 69; RESP 18; O2SAT 97
[2020-07-23] MEDS: ATORVASTATIN 40 MG TABLET PO (20:58)
[2020-07-23] MEDS: traZODone HCL 25 MG TABLET PO (20:58)
[2020-07-23] MEDS: MELATONIN 3 MG TABLET 6 MG PO (20:58)
[2020-07-23] MEDS: SENNOSIDES 8.6 MG TABLET PO (20:58)
[2020-07-23 21:10] LABS: Glucose Point of Care 129 (65-105)
[2020-07-23 21:14] LABS: INR 1.3; Prothrombin Time 16.3 Seconds (11.1-14.7)
[2020-07-23 21:27] VITALS: BP 141/62; PULSE 65; RESP 16; TEMP 36.4; O2SAT 98
[2020-07-24] MEDS: HEPARIN SOD/D5W 100 UNITS/ML 25,000 UNITS/250 ML BAG 13 UNITS IV CONT ×2 (04:20→23:29)
[2020-07-24 05:27] VITALS: BP 144/63; PULSE 66; RESP 18; TEMP 36.4; O2SAT 97
[2020-07-24 05:47] LABS: Hematocrit 24.5 % (42.0-52.0); Mean Corpuscular HGB Conc 32.7 g/dl (32-36); Mean Corpuscular Hemoglobin 28.8 pg (26-34); Mean Corpuscular Volume 88.1 fl (80-100); Mean Platelet Volume 11.2 fl (7.4-10.4); Platelet Count Result 169 k/mm3 (150-375); Red Blood Count 2.78 M/mm3 (4.6-6.20); Red Cell Distribution Width 15.2 % (11.5-14.5); White Blood Count 7.9 K/mm3 (4.5-10.0)
[2020-07-24 05:55] LABS: Albumin Level 3.2 g/dL (3.5-5.1); Anion Gap 6 mmol/L (8-16); Blood Urea Nitrogen 46 mg/dL (9-20); Calcium 8.7 mg/dL (8.4-10.2); Carbon Dioxide 29 mmol/L (22-30); Chloride 101 mmol/L (98-107); Estimated CRCL calculation 35 ml/min; Estimated Glomerular Filt Rate 31; Glucose 132 mg/dL (75-110); Phosphorus 4.1 mg/dL (2.5-4.5); Potassium 4.1 mmol/L (3.4-5.0); Sodium 136 mmol/L (137-145)
[2020-07-24] MEDS: ASCORBIC ACID 500 MG TABLET PO ×2 (08:15→16:41)
[2020-07-24] MEDS: DULoxetine HCL 30 MG CAPSULE.DR PO (08:15)
[2020-07-24] MEDS: FINASTERIDE 5 MG TABLET PO (08:15)
[2020-07-24] MEDS: FUROSEMIDE 40 MG TABLET PO ×2 (08:15→16:41)
[2020-07-24] MEDS: hydrOXYzine HCL 25 MG TABLET PO ×4 (08:15→20:11)
[2020-07-24] MEDS: FERROUS SULFATE 324 MG TABLET PO (08:15)
[2020-07-24] MEDS: HYDROcodone/acetaminophen (*CRX) 7.5-325 MG TABLET 1 TAB PO ×2 (08:24→16:54)
[2020-07-24] MEDS: PANTOPRAZOLE 40 MG TABLET PO ×2 (08:24→20:11)
[2020-07-24] MEDS: MULTIVITAMINS THERAPEUTIC TAB (*BKC) 1 TABLET PO (08:24)
[2020-07-24] MEDS: TAMSULOSIN HCL 0.4 MG CAPSULE PO (08:24)
[2020-07-24] MEDS: PREGABALIN (*CRX) 75 MG CAPSULE PO ×2 (08:24→16:53)
[2020-07-24 08:25] VITALS: PULSE 80
[2020-07-24] MEDS: METOPROLOL TARTRATE 12.5 MG TABLET PO ×2 (08:25→20:12)
[2020-07-24] MEDS: SILVERGEL (ELTA) 45 ML 1 APPLIC TOPICAL (08:48)
[2020-07-24 09:35] LABS: Glucose Point of Care 120 (65-105)
--- NOTE | 2020-07-24 10:14 | PM.IMPN ---
Progress Note: A&P Assessment and Plan (1) Acute blood loss anemia: Code(s): D62 - Acute posthemorrhagic anemia Status: Acute Assessment and Plan: Acute on chronic normocytic anemia. He was recently hospitalized in May 2020 and underwent blood transfusion at that time. Hemoglobin and hematocrit are even lower at this hospitalization. He has required a total of 4 units pRBC. H&H continues to slowly decline. Suspected source of anemia is from posterior left calf hematoma. Additional concern for GI component given reported episode of melena prior to presentation and positive fecal occult blood test. Monitor H&H closely. Repeat this this evening. Transfuse as needed with hemoglobin threshold <7.0= Gastroenterology has been consulted in light of occult blood in stool but holding off for surgical evaluation of hematoma Warfarin is on hold. s/p left hematoma drainage per surgery. transfused one unti 4/6 night. monitor h and h in am. if stable, will need heparin gtt bridging anticoagulation if okay iwth surgery. h and h stable suregery okay with anticoauglation. warfarin restarted. plastics plans skin graftign. will do heparin without bolus. hold warfarin for periprocedureal briding. (2) Hematoma of left lower extremity: Qualifiers: Encounter type: initial encounter Qualified Code(s): S80.12XA - Contusion of left lower leg, initial encounter Code(s): S80.12XA - Contusion of left lower leg, initial encounter Status: Resolved Assessment and Plan: He has a large, dark purple hematoma of left posterior calf. He denies any recent trauma or injury. The area is exquisitely tender and leg is edematous. This is likely source for anemia. Left lower extremity CT demonstrates large subcutaneous hematoma. General surgery has been consulted and input is appreciated. s/p drainage of left calf hematoma. drain in place. Analgesics available as needed for pain (3) Occult blood in stools: Code(s): R19.5 - Other fecal abnormalities Status: Acute Assessment and Plan: Reports of melena prior to presentation. Fecal occult blood test positive on 07/16/2020. Gastroenterology is following and input is appreciated Planning for EGD, however awaiting surgical intervention of left leg hematoma as this appears to be more acute source of blood loss Continue Protonix daily Avoid NSAIDs and aspirin (4) Chronic anticoagulation: Code(s): Z79.01 - senior care (current) use of anticoagulants Status: Acute Assessment and Plan: He is maintained on chronic warfarin for atrial fibrillation and also has a mechanical aortic valve. INR goal is 2.0-3.0. INR was 3.4 at presentation. He received 1 unit FFP on 07/15 to bring down INR for procedure planning. INR Given acute bleeding, anticoagulation is on hold. In light of mechanical valve, will consider heparin drip if H&H stabilizes. At this time, hemoglobin continues to decline, therefore will hold off on this. Continue to monitor INR daily. INR low, if h and h stable, will hold off on heparin gtt as his h and h continued to drop needing transfusion. shold off anticoagulation as surgery anticipates further wound surgery depending on his situation see above. start heaprin for bridign anticoagulation (5) Acute on chronic renal failure: Qualifiers: Acute renal failure type: unspecified Chronic kidney disease stage: stage 3 (moderate) Chronic kidney disease stage 3 subtype: stage 3b (GFR 30-44) Qualified Code(s): N17.9 - Acute kidney failure, unspecified; N18.32 - Chronic kidney disease, stage 3b Code(s): N17.9 - Acute kidney failure, unspecified; N18.9 - Chronic kidney disease, unspecified Status: Acute Assessment and Plan: Baseline creatinine appears to be variable, around 2.0. Creatinine upon presentation is 2.7. Suspect acute injury is multifactorial when considering diuresis, r
[2020-07-24 12:56] LABS: Glucose Point of Care 125 (65-105)
[2020-07-24 14:00] VITALS: BP 131/50; PULSE 68; RESP 16; TEMP 36.1; O2SAT 96
[2020-07-24 14:30] LABS: INR 1.2; Prothrombin Time 15.4 Seconds (11.1-14.7)
--- NOTE | 2020-07-24 15:42 | PM.PNNEP ---
Progress Note: A&P Assessment and Plan (1) ANDRADE (acute kidney injury): Code(s): N17.9 - Acute kidney failure, unspecified Status: Acute Assessment and Plan: resolving/resolved multifactorial etiology: - severe anemia on admission - relative hypotension (100s systolic on presentation)/prerenal issues - concurrent use of diuretics prior to admission -infection/inflammation from leg wounds? electrolytes stable and reasonable UOP continue supportive therapy (2) Chronic kidney disease, stage IV (severe): Code(s): N18.4 - Chronic kidney disease, stage 4 (severe) Status: Chronic Assessment and Plan: due to chronic diuretics, diabetes, age, and vascular disease baseline creatinine ~ 1.6 - 2.1mg/dl (3) Anemia: Code(s): D64.9 - Anemia, unspecified Status: Acute Assessment and Plan: due to a combination of previous hematuria, supratherapuetic INR, hematoma, low platelet count, and melena On Epogen while hospitalized following H/H (4) Hematoma of left lower extremity: Qualifiers: Encounter type: initial encounter Qualified Code(s): S80.12XA - Contusion of left lower leg, initial encounter Code(s): S80.12XA - Contusion of left lower leg, initial encounter Status: Resolved Assessment and Plan: status/post incision and drainage Surgery following local wound care (5) Chronic venous insufficiency of lower extremity: Code(s): I87.2 - Venous insufficiency (chronic) (peripheral) Status: Chronic Assessment and Plan: wound care following pain control (6) CHF (congestive heart failure): Qualifiers: Heart failure chronicity: acute on chronic Heart failure type: unspecified Qualified Code(s): I50.9 - Heart failure, unspecified Code(s): I50.9 - Heart failure, unspecified Status: Chronic Assessment and Plan: on oral lasix at this time due last CXR and previous symptoms of SOB, lasix increased to BID frequency follow respiratory status Will continue to follow. Subjective Date/time seen: 07/24/20 15:42 No apparent distress voiced at this time; no new issues or problems to report at this time or overnight; pain control seems reasonable; eating and drinking okay; no other complaints expressed on my visit. Exam Narrative: Exam Narrative: General: Elderly male in NAD; sitting in chair on my visit Heart: normal S1 and S2; no rub Lungs: clear anteriorly Abdomen: soft, nontender, nondistended, positive bowel sounds Extremities: trace - 1+ edema noted Skin: chronic venous stasis changes along with multiple wounds/scabs/blisters; dressings over left lower extremity Objective Data Vital Signs Vital Signs: Vital Signs Temp Pulse Resp BP Pulse Ox 07/24/20 08:25 80 07/24/20 05:27 36.4 C L 66 18 144/63 H 97 07/23/20 21:27 36.4 C 65 16 141/62 H 98 07/23/20 19:41 69 18 97 Intake/Output Intake/Output: Intake & Output 07/21/20 07/22/20 07/23/20 07/24/20 23:59 23:59 23:59 23:59 Intake Total 920 1420 2510 490 Output Total 350 1001 1100 Balance 515 772 0314 490 Meds/Results Medications: Active Medications Generic Name Dose Route Start Last Admin Trade Name Freq PRN Reason Stop Dose Admin Acetaminophen 500 mg 07/18/20 11:51 Acetaminophen 500 Mg Tablet PO Q6H PRN Mild Pain (1-3) or Fever Hydrocodone Bitart/Acetaminophen 1 tab 07/18/20 11:51 07/20/20 09:04 Hydrocodone/Acetaminophen (*Crx) 5-325 Mg Tablet PO 1 tab Q4H PRN Administration Pain Rated 4-6 Hydrocodone Bitart/Acetaminophen 1 tab 07/18/20 11:51 07/24/20 08:24 Hydrocodone/Acetaminophen (*Crx) 7.5-325 Mg Tablet PO 1 tab Q4H PRN Administration Pain Rated 7-10 Ascorbic Acid 500 mg 07/13/20 09:00 07/24/20 08:15 Ascorbic Acid 500 Mg Tablet PO 500 mg BID MARY Admin
[2020-07-24] MEDS: EPOETIN ALFA-EPBX 10,000 UNITS/ML VIAL 10000 UNITS SUB-Q (15:55)
[2020-07-24 17:22] LABS: Glucose Point of Care 167 (65-105)
[2020-07-24] MEDS: MELATONIN 3 MG TABLET 6 MG PO (20:11)
[2020-07-24] MEDS: traZODone HCL 25 MG TABLET PO (20:11)
[2020-07-24] MEDS: ATORVASTATIN 40 MG TABLET PO (20:11)
[2020-07-24] MEDS: SENNOSIDES 8.6 MG TABLET PO (20:11)
[2020-07-24 20:12] VITALS: PULSE 78
[2020-07-24 20:20] LABS: Glucose Point of Care 213 (65-105)
[2020-07-24 21:07] VITALS: BP 133/57; PULSE 65; RESP 20; TEMP 36.1; O2SAT 98
[2020-07-25 05:15] VITALS: BP 161/67; PULSE 89; RESP 18; TEMP 36.3; O2SAT 100
[2020-07-25 05:52] LABS: Partial Thromboplastin Time 85.9 SECONDS (22.3-36.8)
[2020-07-25 07:26] LABS: Glucose Point of Care 133 (65-105)
[2020-07-25 08:00] VITALS: BP 128/64; PULSE 82; RESP 16; TEMP 37.2; O2SAT 96
--- NOTE | 2020-07-25 09:36 | P.PNNP_ITS ---
Progress Note: A&P Assessment and Plan (1) ANDRADE (acute kidney injury): Code(s): N17.9 - Acute kidney failure, unspecified Status: Acute Assessment and Plan: * resolving/resolved * multifactorial etiology: - severe anemia on admission - relative hypotension (100s systolic on presentation)/prerenal issues - concurrent use of diuretics prior to admission -infection/inflammation from leg wounds? * electrolytes stable and reasonable UOP (on diuretics) * continue supportive therapy (2) Chronic kidney disease, stage IV (severe): Code(s): N18.4 - Chronic kidney disease, stage 4 (severe) Status: Chronic Assessment and Plan: * due to chronic diuretics, diabetes, age, and vascular disease * baseline creatinine ~ 1.6 - 2.1mg/dl (3) Anemia: Code(s): D64.9 - Anemia, unspecified Status: Acute Assessment and Plan: * due to a combination of previous hematuria, supratherapuetic INR, hematoma, low platelet count, and melena * On Epogen while hospitalized * following H/H (4) Hematoma of left lower extremity: Qualifiers: Encounter type: initial encounter Qualified Code(s): S80.12XA - Contusion of left lower leg, initial encounter Code(s): S80.12XA - Contusion of left lower leg, initial encounter Status: Resolved Assessment and Plan: * status/post incision and drainage * Surgery following * local wound care (5) Chronic venous insufficiency of lower extremity: Code(s): I87.2 - Venous insufficiency (chronic) (peripheral) Status: Chronic Assessment and Plan: * wound care following * pain control (6) CHF (congestive heart failure): Qualifiers: Heart failure chronicity: acute on chronic Heart failure type: unsp ecified Qualified Code(s): I50.9 - Heart failure, unspecified Code(s): I50.9 - Heart failure, unspecified Status: Chronic Assessment and Plan: * on oral lasix at this time * due last CXR and previous symptoms of SOB, lasix increased to BID frequency * follow respiratory status Will continue to follow. Subjective Date/time seen: 07/25/20 09:36 No new issues or problems to report at this time; no events overnight; pain control adequate; overall; he seems to be doing well in comparison to admission. Exam Narrative: Exam Narrative: General: Elderly male in NAD Heart: normal S1 and S2; no rub Lungs: clear anteriorly Abdomen: soft, nontender, nondistended, positive bowel sounds Extremities: trace - 1+ edema noted Skin: chronic venous stasis changes noted + multiple wounds/scabs/blisters; dressings over left lower extremity Objective Data Vital Signs Vital Signs: Vital Signs Temp Pulse Resp BP Pulse Ox 07/25/20 08:00 37.2 C 82 16 128/64 96 07/25/20 05:15 36.3 C L 89 18 161/67 H 100 07/24/20 21:07 36.1 C L 65 20 133/57 L 98 07/24/20 20:12 78 07/24/20 14:00 36.1 C L 68 16 131/50 L 96 Intake/Output Intake/Output: Intake & Output 07/22/20 07/23/20 07/24/20 07/25/20 23:59 23:59 23:59 23:59 Intake Total 1420 2510 2400 290 Output Total 1001 1100 1450 700 Balance 419 1410 950 -410 Meds/Results Medications: Active Medications
--- NOTE | 2020-07-25 09:36 | PM.PNNEP ---
Progress Note: A&P Assessment and Plan (1) ANDRADE (acute kidney injury): Code(s): N17.9 - Acute kidney failure, unspecified Status: Acute Assessment and Plan: resolving/resolved multifactorial etiology: - severe anemia on admission - relative hypotension (100s systolic on presentation)/prerenal issues - concurrent use of diuretics prior to admission -infection/inflammation from leg wounds? electrolytes stable and reasonable UOP (on diuretics) continue supportive therapy (2) Chronic kidney disease, stage IV (severe): Code(s): N18.4 - Chronic kidney disease, stage 4 (severe) Status: Chronic Assessment and Plan: due to chronic diuretics, diabetes, age, and vascular disease baseline creatinine ~ 1.6 - 2.1mg/dl (3) Anemia: Code(s): D64.9 - Anemia, unspecified Status: Acute Assessment and Plan: due to a combination of previous hematuria, supratherapuetic INR, hematoma, low platelet count, and melena On Epogen while hospitalized following H/H (4) Hematoma of left lower extremity: Qualifiers: Encounter type: initial encounter Qualified Code(s): S80.12XA - Contusion of left lower leg, initial encounter Code(s): S80.12XA - Contusion of left lower leg, initial encounter Status: Resolved Assessment and Plan: status/post incision and drainage Surgery following local wound care (5) Chronic venous insufficiency of lower extremity: Code(s): I87.2 - Venous insufficiency (chronic) (peripheral) Status: Chronic Assessment and Plan: wound care following pain control (6) CHF (congestive heart failure): Qualifiers: Heart failure chronicity: acute on chronic Heart failure type: unspecified Qualified Code(s): I50.9 - Heart failure, unspecified Code(s): I50.9 - Heart failure, unspecified Status: Chronic Assessment and Plan: on oral lasix at this time due last CXR and previous symptoms of SOB, lasix increased to BID frequency follow respiratory status Will continue to follow. Subjective Date/time seen: 07/25/20 09:36 No new issues or problems to report at this time; no events overnight; pain control adequate; overall; he seems to be doing well in comparison to admission. Exam Narrative: Exam Narrative: General: Elderly male in NAD Heart: normal S1 and S2; no rub Lungs: clear anteriorly Abdomen: soft, nontender, nondistended, positive bowel sounds Extremities: trace - 1+ edema noted Skin: chronic venous stasis changes noted + multiple wounds/scabs/blisters; dressings over left lower extremity Objective Data Vital Signs Vital Signs: Vital Signs Temp Pulse Resp BP Pulse Ox 07/25/20 08:00 37.2 C 82 16 128/64 96 07/25/20 05:15 36.3 C L 89 18 161/67 H 100 07/24/20 21:07 36.1 C L 65 20 133/57 L 98 07/24/20 20:12 78 07/24/20 14:00 36.1 C L 68 16 131/50 L 96 Intake/Output Intake/Output: Intake & Output 07/22/20 07/23/20 07/24/20 07/25/20 23:59 23:59 23:59 23:59 Intake Total 1420 2510 2400 290 Output Total 1001 1100 1450 700 Balance 419 1410 950 -410 Meds/Results Medications: Active Medications Generic Name Dose Route Start Last Admin Trade Name Jasonq PRN Reason Stop Dose Admin Acetaminophen 500 mg 07/18/20 11:51 Acetaminophen 500 Mg Tablet PO Q6H PRN Mild Pain (1-3) or Fever Hydrocodone Bitart/Acetaminophen 1 tab 07/18/20 11:51 07/20/20 09:04 Hydrocodone/Acetaminophen (*Crx) 5-325 Mg Tablet PO 1 tab Q4H PRN Administration Pain Rated 4-6 Hydrocodone Bitart/Acetaminophen 1 tab 07/18/20 11:51 07/24/20 16:54 Hydrocodone/Acetaminophen (*Crx) 7.5-325 Mg Tablet PO 1 tab Q4H PRN Administration Pain Rated 7-10 Ascorbic Acid 500 mg 07/13/20 09:00 07/24/20 16:41 Ascorbic Acid 500 Mg Tablet PO 500 mg BID MARY
--- NOTE | 2020-07-25 09:53 | WPDPN ---
Progress Note: A&P Assessment and Plan (1) Open wound of left lower extremity: Code(s): S81.802A - Unspecified open wound, left lower leg, initial encounter Status: Acute Assessment and Plan: Will plan to proceed with debridement / STSG left lower extremity at 12:30 if OK with hospitalist. Risks, benefits, alternatives were discussed in extensive detail. I want to be very realistic about the risks involved as well as expectations. Reviewed consent in detail. Discussed aftercare and what to monitor for. Made sure I answered all questions answered to satisfaction and consent obtained. (2) Hematoma of left lower extremity: Qualifiers: Encounter type: initial encounter Qualified Code(s): S80.12XA - Contusion of left lower leg, initial encounter Code(s): S80.12XA - Contusion of left lower leg, initial encounter Status: Resolved Exam Narrative: Exam Narrative: Left lower extremity open wound with good granulation. Some blistering around the wound (from previous VAC) Objective Data Vital Signs Vital Signs: Vital Signs - 24 hr 07/24/20 14:00 07/24/20 20:12 07/24/20 21:07 Temperature 36.1 C L 36.1 C L Pulse Rate 68 78 65 Respiratory Rate 16 20 Blood Pressure 131/50 L 133/57 L Pulse Oximetry 96 98 07/25/20 05:15 07/25/20 08:00 Temperature 36.3 C L 37.2 C Pulse Rate 89 82 Respiratory Rate 18 16 Blood Pressure 161/67 H 128/64 Pulse Oximetry 100 96 Intake/Output Intake/Output: Intake & Output 07/22/20 07/23/20 07/24/20 07/25/20 23:59 23:59 23:59 23:59 Intake Total 1420 2510 2400 290 Output Total 1001 1100 1450 700 Balance 419 1410 950 -410 Meds/Results Medications: Active Medications Generic Name Dose Route Start Last Admin Trade Name Freq PRN Reason Stop Dose Admin Acetaminophen 500 mg 07/18/20 11:51 Acetaminophen 500 Mg Tablet PO Q6H PRN Mild Pain (1-3) or Fever Hydrocodone Bitart/Acetaminophen 1 tab 07/18/20 11:51 07/20/20 09:04 Hydrocodone/Acetaminophen (*Crx) 5-325 Mg Tablet PO 1 tab Q4H PRN Administration Pain Rated 4-6 Hydrocodone Bitart/Acetaminophen 1 tab 07/18/20 11:51 07/24/20 16:54 Hydrocodone/Acetaminophen (*Crx) 7.5-325 Mg Tablet PO 1 tab Q4H PRN Administration Pain Rated 7-10 Ascorbic Acid 500 mg 07/13/20 09:00 07/24/20 16:41 Ascorbic Acid 500 Mg Tablet PO 500 mg BID MARY Administration Atorvastatin Calcium 40 mg 07/12/20 21:10 07/24/20 20:11 Atorvastatin 40 Mg Tablet PO [address] [facility] Administration Bisacodyl 10 mg 07/12/20 20:58 Bisacodyl 10 Mg Suppository RECTAL DAILY PRN Constipation Clotrimazole 1 applic 07/13/20 11:00 07/19/20 22:47 Betamethasone/Clotrimazole Cr 15 Gm Tube TOPICAL Not Given Q12HR [facility] Cyclobenzaprine HCl 5 mg 07/12/20 20:58 Cyclobenzaprine Hcl 5 Mg Tablet PO TID PRN Muscle Spasm Dextrose 12.5 gm 07/12/20 21:00 Dextrose 50% 25 Gm/50 Ml Syringe IV PUSH PRN PRN Hypoglycemia Protocol Duloxetine HCl 30 mg 07/13/20 09:00 07/24/20 08:15 Duloxetine Hcl 30 Mg Capsule.Dr PO [address] [facility] Administration Epoetin Zaid-epbx 10,000 units 07/19/20 14:15 07/24/20 15:55 Epoetin Zaid-Epbx 10,000 Units/Ml Vial SUB-Q 10,[address] [facility] Administration Ferrous Sulfate 324 mg 07/13/20 08:00 07/24/20 08:15 Ferrous Sulfate 324 Mg Tablet PO 324 mg DAILY@0800 [facility] Administration Finasteride 5 mg 07/13/20 09:00 07/24/20 08:15 Finasteride 5 Mg Tablet PO 5 mg DAILY MARY Administration Furosemide 40 mg 07/23/20 11:17 07/24/20 16:41 Furosemide 40 Mg Tablet PO 40 mg BID MARY Administration Glucagon 1 mg 07/12/20 21:00 Glucagon For Inj 1 Mg Vial IM PRN PRN Hypoglycemia Protocol Glucose 15 gm 07/12/20 21:00 Glucose Oral Gel 15 Gm Of Glucse In 37.5 Gm Tube PO PRN PRN Hypoglycemia Protocol Heparin Sodi
[2020-07-25 10:01] VITALS: PULSE 82
[2020-07-25] MEDS: METOPROLOL TARTRATE 12.5 MG TABLET PO ×2 (10:01→20:53)
[2020-07-25] MEDS: TAMSULOSIN HCL 0.4 MG CAPSULE PO (10:01)
[2020-07-25] MEDS: FUROSEMIDE 40 MG TABLET PO ×2 (10:01→16:56)
[2020-07-25] MEDS: DULoxetine HCL 30 MG CAPSULE.DR PO (10:01)
[2020-07-25] MEDS: hydrOXYzine HCL 25 MG TABLET PO ×4 (10:01→20:53)
[2020-07-25] MEDS: MULTIVITAMINS THERAPEUTIC TAB (*BKC) 1 TABLET PO (10:01)
[2020-07-25] MEDS: PANTOPRAZOLE 40 MG TABLET PO ×2 (10:02→20:53)
[2020-07-25] MEDS: FINASTERIDE 5 MG TABLET PO (10:02)
[2020-07-25] MEDS: ASCORBIC ACID 500 MG TABLET PO ×2 (10:02→16:56)
[2020-07-25] MEDS: FERROUS SULFATE 324 MG TABLET PO (10:02)
[2020-07-25] MEDS: SILVERGEL (ELTA) 45 ML 1 APPLIC TOPICAL (10:04)
[2020-07-25] MEDS: polyethylene glycoL 3350 17 GM POWD.PACK PO (10:04)
[2020-07-25] MEDS: HYDROcodone/acetaminophen (*CRX) 5-325 MG TABLET 1 TAB PO (10:07)
[2020-07-25] MEDS: PREGABALIN (*CRX) 75 MG CAPSULE PO ×2 (10:07→16:56)
[2020-07-25 11:42] LABS: Glucose Point of Care 130 (65-105)
[2020-07-25 14:00] VITALS: BP 123/59; PULSE 75; RESP 16; TEMP 36.6; O2SAT 98
[2020-07-25 14:08] LABS: INR 1.2; Prothrombin Time 15.9 Seconds (11.1-14.7)
--- NOTE | 2020-07-25 14:57 | PM.IMPN ---
Progress Note: A&P Assessment and Plan (1) Hematoma of left lower extremity: Qualifiers: Encounter type: initial encounter Qualified Code(s): S80.12XA - Contusion of left lower leg, initial encounter Code(s): S80.12XA - Contusion of left lower leg, initial encounter Status: Resolved Assessment and Plan: He has a large, dark purple hematoma of left posterior calf. He denies any recent trauma or injury. The area is exquisitely tender and leg is edematous. This is likely source for anemia. Left lower extremity CT demonstrates large subcutaneous hematoma. General surgery was consulted and patient now s/p drainage of left calf hematoma on 07/18/20. Patient tolerated the procedure well. Plastic surgery following for plans for skin grafting planned for . (2) Acute blood loss anemia: Code(s): D62 - Acute posthemorrhagic anemia Status: Acute Assessment and Plan: Acute on chronic normocytic anemia. He was recently hospitalized in May 2020 and underwent blood transfusion at that time. Hemoglobin 5.8 on admission and has decreasing Hgb at times; he has required a total of 6 units pRBC. His last transfusion was on 07/18 and Hgb has been stable since that time running in the 7-8 range. Suspected source of anemia this admission is from posterior left calf hematoma. Additional concern for GI component given reported episode of melena prior to presentation and positive fecal occult blood test. Hgb stable recently in the 8 range. Continue to monitor H&H closely. (3) Occult blood in stools: Code(s): R19.5 - Other fecal abnormalities Status: Acute Assessment and Plan: Reports of melena prior to presentation. Fecal occult blood test positive on 07/16/2020. Gastroenterology is following and input is appreciated. Considering EGD but left leg hematoma appears to be more acute source of blood loss. Continue Protonix daily. (4) Valvular heart disease: Code(s): I38 - Endocarditis, valve unspecified Status: Acute Assessment and Plan: He is maintained on chronic warfarin for atrial fibrillation and for a mechanical aortic valve. INR goal is 2.0-3.0. INR was 3.4 at presentation. He received 1 unit FFP on 07/15 to bring down INR for procedure planning. Currently on Heparin drip for plans for skin grafting. (5) Acute on chronic renal failure: Qualifiers: Acute renal failure type: unspecified Chronic kidney disease stage: stage 3 (moderate) Chronic kidney disease stage 3 subtype: stage 3b (GFR 30-44) Qualified Code(s): N17.9 - Acute kidney failure, unspecified; N18.32 - Chronic kidney disease, stage 3b Code(s): N17.9 - Acute kidney failure, unspecified; N18.9 - Chronic kidney disease, unspecified Status: Acute Assessment and Plan: Baseline creatinine appears to be variable, around 2.0. Creatinine upon presentation is 2.7. Suspect acute injury is multifactorial when considering diuresis, relative hypotension, and profound anemia. Renal US showed cortical thinning without hydronephrosis. Creatinine is 2.1 yesterday. Continue to follow. (6) CHF (congestive heart failure): Qualifiers: Heart failure chronicity: acute on chronic Heart failure type: unspecified Qualified Code(s): I50.9 - Heart failure, unspecified Code(s): I50.9 - Heart failure, unspecified Status: Chronic Assessment and Plan: Last echo in October 2019 showed reduced EF of 30-35%. BNP elevated at 6060 but he appears euvolemic and is asymptomatic. Continue 40 mg Lasix bid. Monitor renal function closely. Continue metoprolol. (7) DM2 (diabetes mellitus, type 2): Qualifiers: Diabetes mellitus complication detail: with other skin complication Diabetes mellitus complication status: with skin complications Diabetes mellitus assistant terminal manager insulin use: without assistant terminal manager use Qualified Code(s): E11.628 - Type 2 d
--- NOTE | 2020-07-25 15:17 | PC.NURSE ---
On 07/25/20, the student, [PJ SHANNON], provided care and completed [facility] documentation on this patient. I have reviewed the student's documentation and agree with the findings.
[2020-07-25] MEDS: HYDROcodone/acetaminophen (*CRX) 7.5-325 MG TABLET 1 TAB PO (15:29)
[2020-07-25] MEDS: HEPARIN SOD/D5W 100 UNITS/ML 25,000 UNITS/250 ML BAG 13 UNITS IV CONT (16:56)
[2020-07-25 17:43] LABS: Glucose Point of Care 127 (65-105)
[2020-07-25] MEDS: EUCERIN CREAM 120 GM JAR 1 APPLIC TOPICAL (20:14)
[2020-07-25] MEDS: MELATONIN 3 MG TABLET 6 MG PO (20:52)
[2020-07-25] MEDS: ATORVASTATIN 40 MG TABLET PO (20:52)
[2020-07-25 20:53] VITALS: PULSE 78
[2020-07-25] MEDS: SENNOSIDES 8.6 MG TABLET PO (20:53)
[2020-07-25] MEDS: traZODone HCL 25 MG TABLET PO (20:53)
[2020-07-25 21:14] VITALS: BP 134/64; PULSE 78; RESP 16; TEMP 36.4; O2SAT 99
[2020-07-25 22:03] LABS: Glucose Point of Care 164 (65-105)
[2020-07-26 05:18] VITALS: BP 131/50; PULSE 84; RESP 16; TEMP 36.6; O2SAT 94
[2020-07-26 05:42] LABS: Basophils Percent Auto 0.3 % (0.2-1.2); Eosinophils Absolute Auto 0.6 K/mm3 (0-0.3); Eosinophils Percent Auto 7.4 % (0-4.4); Hematocrit 25.5 % (42.0-52.0); Immature Granulocyte Percent A 1.3 % (0-0.5); Lymphocytes Absolute Auto 0.71 K/mm3 (0.9-3.2); Lymphocytes Percent Auto 9.1 % (18.3-44.2); Mean Corpuscular HGB Conc 31.4 g/dl (32-36); Mean Corpuscular Hemoglobin 28.4 pg (26-34); Mean Corpuscular Volume 90.4 fl (80-100); Mean Platelet Volume 11.4 fl (7.4-10.4); Monocytes Absolute Auto 0.8 K/mm3 (0.1-0.6); Monocytes Percent Auto 10.2 % (2.6-8.5); Neutrophils Absolute Auto 5.6 K/mm3 (1.3-6.7); Neutrophils Percent Auto 71.7 % (45.5-73.1); Platelet Count Result 177 k/mm3 (150-375); Red Blood Count 2.82 M/mm3 (4.6-6.20); Red Cell Distribution Width 15.7 % (11.5-14.5); White Blood Count 7.8 K/mm3 (4.5-10.0)
[2020-07-26 05:48] LABS: Alanine Aminotransferase 23 U/L (4-50); Albumin Level 3.5 g/dL (3.5-5.1); Alkaline Phosphatase 131 U/L (38-126); Anion Gap 8 mmol/L (8-16); Aspartate Amino Transferase 33 U/L (17-59); Bilirubin,Total 0.6 mg/dL (0.2-1.3); Blood Urea Nitrogen 46 mg/dL (9-20); Calcium 9.1 mg/dL (8.4-10.2); Carbon Dioxide 26 mmol/L (22-30); Chloride 102 mmol/L (98-107); Estimated CRCL calculation 28 ml/min; Estimated Glomerular Filt Rate 28; Glucose 222 mg/dL (75-110); Magnesium 1.5 mg/dL (1.6-2.3); Phosphorus 4.5 mg/dL (2.5-4.5); Potassium 4.1 mmol/L (3.4-5.0); Sodium 136 mmol/L (137-145)
[2020-07-26 05:49] LABS: Partial Thromboplastin Time 86.2 SECONDS (22.3-36.8)
[2020-07-26 07:45] LABS: Glucose Point of Care 151 (65-105)
[2020-07-26 08:24] VITALS: PULSE 86
[2020-07-26] MEDS: DULoxetine HCL 30 MG CAPSULE.DR PO (08:24)
[2020-07-26] MEDS: MULTIVITAMINS THERAPEUTIC TAB (*BKC) 1 TABLET PO (08:24)
[2020-07-26] MEDS: EUCERIN CREAM 120 GM JAR 1 APPLIC TOPICAL ×2 (08:24→17:40)
[2020-07-26] MEDS: FUROSEMIDE 40 MG TABLET PO ×2 (08:24→17:39)
[2020-07-26] MEDS: TAMSULOSIN HCL 0.4 MG CAPSULE PO (08:24)
[2020-07-26] MEDS: ASCORBIC ACID 500 MG TABLET PO ×2 (08:24→17:39)
[2020-07-26] MEDS: METOPROLOL TARTRATE 12.5 MG TABLET PO (08:24)
[2020-07-26] MEDS: polyethylene glycoL 3350 17 GM POWD.PACK PO (08:24)
[2020-07-26] MEDS: PANTOPRAZOLE 40 MG TABLET PO ×2 (08:24→20:24)
[2020-07-26] MEDS: PREGABALIN (*CRX) 75 MG CAPSULE PO ×2 (08:24→17:40)
[2020-07-26] MEDS: FINASTERIDE 5 MG TABLET PO (08:24)
[2020-07-26] MEDS: hydrOXYzine HCL 25 MG TABLET PO ×4 (08:25→20:24)
[2020-07-26] MEDS: FERROUS SULFATE 324 MG TABLET PO (08:25)
[2020-07-26] MEDS: SILVERGEL (ELTA) 45 ML 1 APPLIC TOPICAL (08:25)
[2020-07-26] MEDS: MAGNESIUM OXIDE 400 MG TABLET PO (08:28)
[2020-07-26] MEDS: HEPARIN SOD/D5W 100 UNITS/ML 25,000 UNITS/250 ML BAG 13 UNITS IV CONT (10:22)
[2020-07-26 11:48] LABS: Glucose Point of Care 129 (65-105)
[2020-07-26 13:51] VITALS: BP 120/57; PULSE 71; RESP 18; TEMP 37.3; O2SAT 98
--- NOTE | 2020-07-26 14:00 | PC.NURSE ---
On 07/26/20, the student, [Jodie Buenrostro ], provided care and completed [facility] documentation (vital signs) on this patient. I have reviewed the student's documentation and agree with the findings.
--- NOTE | 2020-07-26 15:58 | PM.PNNEP ---
Progress Note: A&P Assessment and Plan (1) ANDRADE (acute kidney injury): Code(s): N17.9 - Acute kidney failure, unspecified Status: Acute Assessment and Plan: resolving/resolved multifactorial etiology: - severe anemia on admission - relative hypotension (100s systolic on presentation)/prerenal issues - concurrent use of diuretics prior to admission -infection/inflammation from leg wounds? electrolytes stable and reasonable UOP (on diuretics) continue supportive therapy (2) Chronic kidney disease, stage IV (severe): Code(s): N18.4 - Chronic kidney disease, stage 4 (severe) Status: Chronic Assessment and Plan: due to chronic diuretics, diabetes, age, and vascular disease baseline creatinine ~ 1.6 - 2.1mg/dl (3) Anemia: Code(s): D64.9 - Anemia, unspecified Status: Acute Assessment and Plan: due to a combination of previous hematuria, supratherapuetic INR, hematoma, low platelet count, and melena On Epogen while hospitalized following H/H (4) Hematoma of left lower extremity: Qualifiers: Encounter type: initial encounter Qualified Code(s): S80.12XA - Contusion of left lower leg, initial encounter Code(s): S80.12XA - Contusion of left lower leg, initial encounter Status: Resolved Assessment and Plan: status/post incision and drainage Surgery following local wound care (5) Chronic venous insufficiency of lower extremity: Code(s): I87.2 - Venous insufficiency (chronic) (peripheral) Status: Chronic Assessment and Plan: wound care following pain control (6) CHF (congestive heart failure): Qualifiers: Heart failure chronicity: acute on chronic Heart failure type: unspecified Qualified Code(s): I50.9 - Heart failure, unspecified Code(s): I50.9 - Heart failure, unspecified Status: Chronic Assessment and Plan: on oral lasix at this time due last CXR and previous symptoms of SOB, lasix increased to BID frequency follow respiratory status Will continue to follow. Subjective Date/time seen: 07/26/20 15:58 Eating and drinking okay -- ambulating to some degree; noted plans for skin grafting surgery tomorrow; no apparent distress voiced; no issues/events overnight or earlier this AM. Exam Narrative: Exam Narrative: General: Elderly male in NAD Heart: normal S1 and S2; no rub Lungs: clear anteriorly Abdomen: soft, nontender, nondistended, positive bowel sounds Extremities: trace - 1+ edema noted Skin: chronic venous stasis changes + multiple wounds/scabs/blisters; dressings over left lower extremity Objective Data Vital Signs Vital Signs: Vital Signs Temp Pulse Resp BP Pulse Ox 07/26/20 13:51 37.3 C 71 18 120/57 L 98 07/26/20 08:24 86 07/26/20 05:18 36.6 C 84 16 131/50 L 94 07/25/20 21:14 36.4 C L 78 16 134/64 99 07/25/20 20:53 78 Intake/Output Intake/Output: Intake & Output 07/23/20 07/24/20 07/25/20 07/26/20 23:59 23:59 23:59 23:59 Intake Total 2510 2400 3380 1370 Output Total 1100 1450 1100 1150 Balance 3155 243 1517 220 Meds/Results Medications: Active Medications Generic Name Dose Route Start Last Admin Trade Name Jasonq PRN Reason Stop Dose Admin Acetaminophen 500 mg 07/18/20 11:51 Acetaminophen 500 Mg Tablet PO Q6H PRN Mild Pain (1-3) or Fever Hydrocodone Bitart/Acetaminophen 1 tab 07/18/20 11:51 07/25/20 10:07 Hydrocodone/Acetaminophen (*Crx) 5-325 Mg Tablet PO 1 tab Q4H PRN Administration Pain Rated 4-6 Hydrocodone Bitart/Acetaminophen 1 tab 07/18/20 11:51 07/25/20 15:29 Hydrocodone/Acetaminophen (*Crx) 7.5-325 Mg Tablet PO 1 tab Q4H PRN Administration Pain Rated 7-10 Ascorbic Acid 500 mg 07/13/20 09:00 07/26/20 08:24 Ascorbic Acid 500 Mg Tablet PO 500 mg BID MARY Administ
--- NOTE | 2020-07-26 15:58 | P.PNNP_ITS ---
Progress Note: A&P Assessment and Plan (1) ANDRADE (acute kidney injury): Code(s): N17.9 - Acute kidney failure, unspecified Status: Acute Assessment and Plan: * resolving/resolved * multifactorial etiology: - severe anemia on admission - relative hypotension (100s systolic on presentation)/prerenal issues - concurrent use of diuretics prior to admission -infection/inflammation from leg wounds? * electrolytes stable and reasonable UOP (on diuretics) * continue supportive therapy (2) Chronic kidney disease, stage IV (severe): Code(s): N18.4 - Chronic kidney disease, stage 4 (severe) Status: Chronic Assessment and Plan: * due to chronic diuretics, diabetes, age, and vascular disease * baseline creatinine ~ 1.6 - 2.1mg/dl (3) Anemia: Code(s): D64.9 - Anemia, unspecified Status: Acute Assessment and Plan: * due to a combination of previous hematuria, supratherapuetic INR, hematoma, low platelet count, and melena * On Epogen while hospitalized * following H/H (4) Hematoma of left lower extremity: Qualifiers: Encounter type: initial encounter Qualified Code(s): S80.12XA - Contusion of left lower leg, initial encounter Code(s): S80.12XA - Contusion of left lower leg, initial encounter Status: Resolved Assessment and Plan: * status/post incision and drainage * Surgery following * local wound care (5) Chronic venous insufficiency of lower extremity: Code(s): I87.2 - Venous insufficiency (chronic) (peripheral) Status: Chronic Assessment and Plan: * wound care following * pain control (6) CHF (congestive heart failure): Qualifiers: Heart failure chronicity: acute on chronic Heart failure type: unsp ecified Qualified Code(s): I50.9 - Heart failure, unspecified Code(s): I50.9 - Heart failure, unspecified Status: Chronic Assessment and Plan: * on oral lasix at this time * due last CXR and previous symptoms of SOB, lasix increased to BID frequency * follow respiratory status Will continue to follow. Subjective Date/time seen: 07/26/20 15:58 Eating and drinking okay -- ambulating to some degree; noted plans for skin grafting surgery tomorrow; no apparent distress voiced; no issues/events overnight or earlier this AM. Exam Narrative: Exam Narrative: General: Elderly male in NAD Heart: normal S1 and S2; no rub Lungs: clear anteriorly Abdomen: soft, nontender, nondistended, positive bowel sounds Extremities: trace - 1+ edema noted Skin: chronic venous stasis changes + multiple wounds/scabs/blisters; dressings over left lower extremity Objective Data Vital Signs Vital Signs: Vital Signs Temp Pulse Resp BP Pulse Ox 07/26/20 13:51 37.3 C 71 18 120/57 L 98 07/26/20 08:24 86 07/26/20 05:18 36.6 C 84 16 131/50 L 94 07/25/20 21:14 36.4 C L 78 16 134/64 99 07/25/20 20:53 78 Intake/Output Intake/Output: Intake & Output 07/23/20 07/24/20 07/25/20 07/26/20 23:59 23:59 23:59 23:59 Intake Total 2510 2400 3380 1370 Output Total 1100 1450 1100 1150 Balance 4718 662 2028 220 Meds/Results Medications: Active Medications Generic Name Dose Route Start
[2020-07-26] MEDS: EPOETIN ALFA-EPBX 10,000 UNITS/ML VIAL 10000 UNITS SUB-Q (16:22)
[2020-07-26 17:37] LABS: Glucose Point of Care 127 (65-105)
--- NOTE | 2020-07-26 17:46 | PM.IMPN ---
Progress Note: A&P Assessment and Plan (1) Hematoma of left lower extremity: Qualifiers: Encounter type: initial encounter Qualified Code(s): S80.12XA - Contusion of left lower leg, initial encounter Code(s): S80.12XA - Contusion of left lower leg, initial encounter Status: Resolved Assessment and Plan: He has a large, dark purple hematoma of left posterior calf. He denies any recent trauma or injury. The area was exquisitely tender and leg was edematous. This is likely source for anemia. Left lower extremity CT demonstrates large subcutaneous hematoma. General surgery was consulted and patient now s/p drainage of left calf hematoma on 07/18/20. Patient tolerated the procedure well. Plastic surgery following for plans for skin grafting planned for tomorrow. (2) Acute blood loss anemia: Code(s): D62 - Acute posthemorrhagic anemia Status: Acute Assessment and Plan: Acute on chronic normocytic anemia. He was recently hospitalized in May 2020 and underwent blood transfusion at that time. Hemoglobin 5.8 on admission and has decreasing Hgb at times; he has required a total of 6 units pRBC. His last transfusion was on 07/18 and Hgb has been stable since that time running in the 7-8 range. Suspected source of anemia this admission is from posterior left calf hematoma. Additional concern for GI component given reported episode of melena prior to presentation and positive fecal occult blood test. Hgb stable recently in the 8 range. Continue to monitor H&H closely. (3) Occult blood in stools: Code(s): R19.5 - Other fecal abnormalities Status: Acute Assessment and Plan: Reports of melena prior to presentation. Fecal occult blood test positive on 07/16/2020. Gastroenterology is following and input is appreciated. Considering EGD but left leg hematoma appears to be more acute source of blood loss. Continue Protonix daily. (4) Valvular heart disease: Code(s): I38 - Endocarditis, valve unspecified Status: Acute Assessment and Plan: He is maintained on chronic warfarin for atrial fibrillation and for a mechanical aortic valve. INR goal is 2.0-3.0. INR was 3.4 at presentation. He received 1 unit FFP on 07/15/20 to bring down INR for procedure planning. Currently on Heparin drip for plans for skin grafting tomorrow. (5) Acute on chronic renal failure: Qualifiers: Acute renal failure type: unspecified Chronic kidney disease stage: stage 3 (moderate) Chronic kidney disease stage 3 subtype: stage 3b (GFR 30-44) Qualified Code(s): N17.9 - Acute kidney failure, unspecified; N18.32 - Chronic kidney disease, stage 3b Code(s): N17.9 - Acute kidney failure, unspecified; N18.9 - Chronic kidney disease, unspecified Status: Acute Assessment and Plan: Baseline creatinine appears to be variable, around 2.0. Creatinine upon presentation is 2.7. Suspect acute injury is multifactorial when considering diuresis, relative hypotension, and profound anemia. Renal US showed cortical thinning without hydronephrosis. Creatinine is 2.3 today. Continue to follow. May attempt to add VIELKA-inhibitor as he tolerates. (6) CHF (congestive heart failure): Qualifiers: Heart failure chronicity: acute on chronic Heart failure type: unspecified Qualified Code(s): I50.9 - Heart failure, unspecified Code(s): I50.9 - Heart failure, unspecified Status: Chronic Assessment and Plan: Last echo in October 2019 showed reduced EF of 30-35%. BNP elevated at 6060 but he appears euvolemic and is asymptomatic. Continue 40 mg Lasix bid. Monitor renal function closely. Continue metoprolol. Plan to add low-dose VIELKA-inhibitor and monitor renal function closely. (7) DM2 (diabetes mellitus, type 2): Qualifiers: Diabetes mellitus complication detail: with other skin complication Diabetes mellitus complicatio
[2020-07-26 20:00] VITALS: PULSE 80; RESP 16; O2SAT 100
[2020-07-26] MEDS: traZODone HCL 25 MG TABLET PO (20:23)
[2020-07-26] MEDS: SENNOSIDES 8.6 MG TABLET 17.2 MG PO (20:24)
[2020-07-26] MEDS: ATORVASTATIN 40 MG TABLET PO (20:24)
[2020-07-26] MEDS: MELATONIN 3 MG TABLET 6 MG PO (20:24)
[2020-07-26 22:04] VITALS: BP 147/53; PULSE 80; RESP 16; TEMP 37; O2SAT 100
[2020-07-26 23:09] LABS: Glucose Point of Care 174 (65-105)
[2020-07-27] VITALS (21 sets, daily range): BP systolic 96–155; BP diastolic 48–72; PULSE 60–90; RESP 12–22; TEMP 36.1–36.6; O2SAT 95–100
[2020-07-27] MEDS: LACTATED RINGERS 1,000 ML 75 ML IV CONT (01:19)
[2020-07-27] MEDS: HEPARIN SOD/D5W 100 UNITS/ML 25,000 UNITS/250 ML BAG 13 UNITS IV CONT (05:00)
[2020-07-27 05:09] LABS: Hematocrit 25.4 % (42.0-52.0); Hemoglobin 8.1 g/dL (14.0-18.0); Mean Corpuscular HGB Conc 31.9 g/dl (32-36); Mean Corpuscular Hemoglobin 28.4 pg (26-34); Mean Corpuscular Volume 89.1 fl (80-100); Mean Platelet Volume 10.7 fl (7.4-10.4); Platelet Count Result 170 k/mm3 (150-375); Red Blood Count 2.85 M/mm3 (4.6-6.20); Red Cell Distribution Width 15.7 % (11.5-14.5)
[2020-07-27 05:19] LABS: Partial Thromboplastin Time 108.6 SECONDS (22.3-36.8)
[2020-07-27 05:32] LABS: Albumin Level 3.5 g/dL (3.5-5.1); Anion Gap 6 mmol/L (8-16); Blood Urea Nitrogen 46 mg/dL (9-20); CRP 5.3 mg/dL (<1.0); Calcium 9.1 mg/dL (8.4-10.2); Carbon Dioxide 28 mmol/L (22-30); Chloride 105 mmol/L (98-107); Estimated CRCL calculation 30 ml/min; Estimated Glomerular Filt Rate 30; Glucose 131 mg/dL (75-110); Magnesium 1.6 mg/dL (1.6-2.3); Phosphorus 4.9 mg/dL (2.5-4.5); Potassium 4.1 mmol/L (3.4-5.0); Sodium 139 mmol/L (137-145)
[2020-07-27 08:34] LABS: Glucose Point of Care 125 (65-105)
[2020-07-27] MEDS: MAGNESIUM SULF 2 GM/WATER 50ML 2 GM/50 ML BAG IVPB (08:35)
[2020-07-27] MEDS: PREGABALIN (*CRX) 75 MG CAPSULE PO ×2 (08:45→18:55)
[2020-07-27] MEDS: DULoxetine HCL 30 MG CAPSULE.DR PO (08:46)
[2020-07-27] MEDS: hydrOXYzine HCL 25 MG TABLET PO ×3 (08:46→20:49)
[2020-07-27] MEDS: METOPROLOL TARTRATE 12.5 MG TABLET PO ×2 (08:47→20:49)
--- NOTE | 2020-07-27 09:00 | PC.NURSE ---
Wound care and medications for wound care not given at 0900 as patient is going for skin grafting today.
[2020-07-27 11:34] LABS: Glucose Point of Care 122 (65-105)
--- NOTE | 2020-07-27 11:53 | PCOTNOTE ---
Attempted OT evaluation, but unable to complete as patient going to OR for a skin graft. Will continue to follow.
--- NOTE | 2020-07-27 12:00 | PC.NURSE ---
To OR via bed with OR staff. Consent on chart. with patient.
[2020-07-27] MEDS: LACTATED RINGERS 1,000 ML 30 ML IV CONT (12:20)
--- NOTE | 2020-07-27 12:28 | WPDANESEPPF ---
Anes - Initial Pre Proc Eval Procedure: Operation Date: 07/18/20 10:00 Proposed Procedures p Evacuation of Left Calf Hematoma(Left) - Joel Lamar MD Operation Date: 07/27/20 12:30 Proposed Procedures p Split Thickness Skin Graft Left Lower Extremity with Wound Vac Placement - Keith Copeland MD Date/Time: 07/27/20 12:28 Surgeon: Con Hicks MD Pre Op Diagnosis: Hematoma with skin necrosis left LE Patient Data Age: 74 Gender: M Height: 5 ft 11 in Weight: 77.4 kg Last Vital Signs Temp 97.7 F 07/27/20 06:46 Pulse 68 07/27/20 08:47 Resp 16 07/27/20 06:46 BP 140/60 07/27/20 06:46 Pulse Ox 97 07/27/20 06:46 Allergies Allergy/AdvReac Type Severity Reaction Status Date / Time zolpidem Allergy Unknown Verified 07/12/20 17:37 gabapentin AdvReac Shakiness Verified 07/12/20 17:37 Home Medications Medication Instructions Recorded Confirmed Type multivitamin 1 tablet PO DAILY 05/26/20 07/12/20 History Arginaid 1 g PO BID #60 ea 05/29/20 07/12/20 Rx acetaminophen 1,000 mg PO Q6H PRN #60 tablet 05/29/20 07/12/20 Rx ascorbic acid (vitamin C) [Vitamin 500 mg PO BID #60 tablet 05/29/20 07/12/20 Rx C] atorvastatin 40 mg PO HS #30 tablet 05/29/20 07/12/20 Rx duloxetine 30 mg PO DAILY #30 cap 05/29/20 07/12/20 Rx finasteride 5 mg PO DAILY #30 tablet 05/29/20 07/12/20 Rx furosemide 40 mg PO DAILY #30 tablet 05/29/20 07/12/20 Rx magnesium hydroxide [Milk of 400 mg PO DAILY PRN #30 ml 05/29/20 07/12/20 Rx Magnesia] melatonin 6 mg PO HS #30 tablet 05/29/20 07/12/20 Rx pantoprazole 40 mg PO DAILY #30 tablet 05/29/20 07/12/20 Rx tamsulosin 0.4 mg PO DAILY #30 cap 05/29/20 07/12/20 Rx trazodone 25 mg PO HS #30 tablet 05/29/20 07/12/20 Rx warfarin 2.5 mg PO DAILY #30 tablet 05/29/20 07/12/20 Rx oxycodone 5 mg tablet 5 mg PO Q6H #120 tablet 06/22/20 07/12/20 Rx pregabalin 75 mg capsule 75 mg PO BID #60 cap 07/04/20 07/12/20 Rx Citroma 296 ml PO DAILY PRN 07/12/20 07/12/20 History Miralax 17 g PO DAILY 07/12/20 07/12/20 History bisacodyl 10 mg RECTAL DAILY PRN 07/12/20 07/12/20 History cyclobenzaprine 5 mg PO TID PRN 07/12/20 07/12/20 History ferrous sulfate 325 mg PO DAILY@0800 07/12/20 07/12/20 History hydroxyzine HCl 25 mg PO QID 07/12/20 07/12/20 History metoprolol tartrate 12.5 mg PO Q12HR 07/12/20 07/12/20 History oxycodone 10 mg PO Q4H PRN 07/12/20 07/12/20 History sennosides [Senna Lax] 8.6 mg PO HS 07/12/20 07/12/20 History sodium phosphates [Fleet Enema] 118 ml RECTAL DAILY PRN 07/12/20 07/12/20 History Laboratory Tests 07/12/20 07/26/20 07/26/20 15:07 17:35 20:34 WBC RBC Hgb Hct MCV MCH MCHC RDW Plt Count MPV APTT Sodium Potassium Chloride Carbon Dioxide Anion Gap BUN Creatinine Estim Creat Clear Calc Estimated GFR Glucose POC Capillary Glucose 127 mg/dl H mg/dl 174 mg/dl H mg/dl (65-105) (65-105) Calcium Phosphorus Magnesium C-Reactive Protein Albumin SARS-CoV-2 RNA (RT-PCR) Crossmatch See Detail Enhanced Crossmatch See Detail 07/27/20 07/27/20 07/27/20 01:17 04:55 04:55 WBC 7.0 K/mm3 K/mm3 (4.5-10.0) RBC 2.85 M/mm3 L M/mm3 (4.6-6.20) Hgb 8.1 g/dL L g/dL (14.0-18.0) Hct 25.4 % L % (42.0-52.0) MCV 89.1 fl fl (80-100) MCH 28.4 pg pg (26-34) MCHC 31.9 g/dl L g/dl (32-36) RDW 15.7 % H % (11.5-14.5) Plt Count 170 k/mm3 k/mm3 (150-375) MPV 10.7 fl H fl (7.4-10.4) APTT 108.6 SECONDS H SECONDS (22.3-36.8) Sodium Potassium Chloride Carbon Diox
--- NOTE | 2020-07-27 12:43 | PCPTNOTE ---
Attempted PT evaluation this date, but unable to complete as patient going to OR for a skin graft. Will continue to follow.
--- NOTE | 2020-07-27 12:51 | WPDHPUPDATE1 ---
History and Physical Update Update Date/Time: 07/27/20 12:51 History and Physical has been reviewed, including an updated exam of the patient. There are NO changes in the patient's condition. Risks, benefits, and alternatives have been discussed and questions answered. Patient agrees to proceed with procedure.
[2020-07-27] MEDS: LIDO 1%/EPINEPHRINE 1:100,000 50 ML VIAL 30 ML INFILTRATE (13:06)
[2020-07-27] MEDS: MINERAL OIL LIGHT 30 ML BTL TOPICAL (13:06)
[2020-07-27] MEDS: ceFAZolin SODIUM 1 GM VIAL IV PUSH (13:38)
--- NOTE | 2020-07-27 14:28 | PM.PROC ---
Procedure Note - Detailed Date of procedure: 07/27/20 Pre-op diagnosis: Hematoma with skin necrosis left LE Open wound left lower extremity Post-op diagnosis: same Procedure performed: Debridement of left lower extremity 12 x 25 cm (300cm2) Split-thickness skin graft left lower extremity 12 x 25cm (300cm2) Description of procedure: Risks, benefits, alternatives were discussed in extensive detail with him and his preoperatively. All questions answered to their satisfaction. They voiced understanding. Consent obtained. He was taken to the operating room and anesthesia was provided by anesthesiology. He is placed in a prone position. Prepped and draped in a standard sterile fashion. Surgical time-out was taken. I marked out the dimensions of the recipient site. Transposed these to his back. 1% lidocaine and 0.25% Marcaine with epinephrine was used anesthetize the back. Mineral oil was used and used a EyeNetra dermatome at 03/1000 of an inch. This was a 4 in blade. This was meshed in a 1.5-1 ratio. At the recipient site on the left lower extremity I debrided this with a 10 blade back to good clean viable tissue. I copiously irrigated with saline solution and verified strict hemostasis. The graft was placed trimmed as necessary and stapled into place. His skin did not tolerate a VAC dressing earlier during this hospitalization well so we elected to proceed with a bolster dressing. Xeroform wet cotton was created as a tie-over bolster and sutured into place with 3-0 nylon. I created a large bulky dressing with a final dressing being an Murphy wrap to protect the recipient site. Large Tegaderm were placed over the donor site. He was woken taken the PACU without difficulty. All instrument sponge counts were correct at the end of the case. Anesthesia: GETA Surgeon: Keith Copeland MD Estimated blood loss (mL): 20 Drains: No Packing: Yes (Tie-over bolster) Pathology: none sent Complications: No immediate complications Condition: stable Disposition: PACU
[2020-07-27 15:31] LABS: Glucose Point of Care 167 (65-105)
--- NOTE | 2020-07-27 17:25 | PC.NURSE ---
Received patient from OR via bed with OR staff. Awake and alert. Denies pain. No distress noted. Tegaderms x 2 noted to back with small amount bloody drainage under dressings. Dressing D/I to left calf.
[2020-07-27 17:42] LABS: SARS-CoV-2 RNA PCR Negative
[2020-07-27 17:47] LABS: Glucose Point of Care 113 (65-105)
--- NOTE | 2020-07-27 17:53 | PC.NURSE ---
Call out to Dr. Copeland's exchange to determine when to resume heparin gtt. Spoke with Dr. Hicks and heparin needs to be resumed as soon as surgery deems it safe to do so. Awaiting call back from surgery.
--- NOTE | 2020-07-27 18:06 | PM.IMPN ---
Progress Note: A&P Assessment and Plan (1) Hematoma of left lower extremity: Qualifiers: Encounter type: initial encounter Qualified Code(s): S80.12XA - Contusion of left lower leg, initial encounter Code(s): S80.12XA - Contusion of left lower leg, initial encounter Status: Resolved Assessment and Plan: He has a large, dark purple hematoma of left posterior calf. He denies any recent trauma or injury but clarifies this stating he did have a fall prior to admission. The area was exquisitely tender and leg was edematous. This is likely source for anemia. Left lower extremity CT demonstrates large subcutaneous hematoma. General surgery was consulted and patient now s/p drainage of left calf hematoma on 07/18/20. Patient tolerated the procedure well. Plastic surgery consulted with plans for skin grafting today. Plan for SNF placement at discharge. (2) Acute blood loss anemia: Code(s): D62 - Acute posthemorrhagic anemia Status: Acute Assessment and Plan: Acute on chronic normocytic anemia. He was recently hospitalized in May 2020 and underwent blood transfusion at that time. Hemoglobin 5.8 on admission and has decreasing Hgb at times; he has required a total of 6 units pRBC. His last transfusion was on 07/18 and Hgb has been stable since that time running in the 7-8 range. Suspected source of anemia this admission is from posterior left calf hematoma. Additional concern for GI component given reported episode of melena prior to presentation and positive fecal occult blood test. Hgb stable recently in the 8 range. Continue to monitor H&H closely. Reconsult GI. (3) Occult blood in stools: Code(s): R19.5 - Other fecal abnormalities Status: Acute Assessment and Plan: Reports of melena prior to presentation. Fecal occult blood test positive on 07/16/2020. Gastroenterology is following and input is appreciated. Considering EGD but left leg hematoma appears to be more acute source of blood loss. Continue Protonix daily. Reconsult GI to see if further testing required before resuming Coumadin. (4) Valvular heart disease: Code(s): I38 - Endocarditis, valve unspecified Status: Acute Assessment and Plan: He is maintained on chronic warfarin for atrial fibrillation and for a mechanical aortic valve. INR goal is 2.0-3.0. INR was 3.4 at presentation. He received 1 unit FFP on 07/15 to bring down INR for procedure planning. Off Heparin drip but to be resumed as soon as okay with surgery. (5) Acute on chronic renal failure: Qualifiers: Acute renal failure type: unspecified Chronic kidney disease stage: stage 3 (moderate) Chronic kidney disease stage 3 subtype: stage 3b (GFR 30-44) Qualified Code(s): N17.9 - Acute kidney failure, unspecified; N18.32 - Chronic kidney disease, stage 3b Code(s): N17.9 - Acute kidney failure, unspecified; N18.9 - Chronic kidney disease, unspecified Status: Acute Assessment and Plan: Baseline creatinine appears to be variable, around 2.0. Creatinine upon presentation is 2.7. Suspect acute injury is multifactorial when considering diuresis, relative hypotension, and profound anemia. Renal US showed cortical thinning without hydronephrosis. Creatinine is 2.2 today. Continue to follow. (6) CHF (congestive heart failure): Qualifiers: Heart failure chronicity: acute on chronic Heart failure type: unspecified Qualified Code(s): I50.9 - Heart failure, unspecified Code(s): I50.9 - Heart failure, unspecified Status: Chronic Assessment and Plan: Last echo in October 2019 showed reduced EF of 30-35%. BNP elevated at 6060 but he appears euvolemic and is asymptomatic. Continue 40 mg Lasix bid. Creatinine remaining stable at 2.2. Monitor renal function closely. Continue metoprolol. Plan to add low-dose VIELKA-inhibitor at some point and monitor re
[2020-07-27] MEDS: FUROSEMIDE 40 MG TABLET PO (18:55)
[2020-07-27] MEDS: ASCORBIC ACID 500 MG TABLET PO (18:55)
[2020-07-27] MEDS: EUCERIN CREAM 120 GM JAR 1 APPLIC TOPICAL (18:56)
--- NOTE | 2020-07-27 19:58 | PC.NURSE ---
Donor sites to back remain with tegaderms intact to sites. Moderate amount bloody drainage noted under dressings. Patient denies discomfort. Dressing to left calf skin graft remains D/I with no drainage noted. Patient denies pain. No distress noted.
[2020-07-27] MEDS: traZODone HCL 25 MG TABLET PO (20:48)
[2020-07-27] MEDS: PANTOPRAZOLE 40 MG TABLET PO (20:49)
[2020-07-27] MEDS: MELATONIN 3 MG TABLET 6 MG PO (20:49)
[2020-07-27] MEDS: ATORVASTATIN 40 MG TABLET PO (20:49)
[2020-07-27] MEDS: HYDROcodone/acetaminophen (*CRX) 5-325 MG TABLET 1 TAB PO (21:04)
[2020-07-27] MEDS: SENNOSIDES 8.6 MG TABLET 17.2 MG PO (22:12)
[2020-07-27 23:57] LABS: Glucose Point of Care 175 (65-105)
[2020-07-28] VITALS (8 sets, daily range): BP systolic 111–138; BP diastolic 46–69; PULSE 65–96; RESP 16–20; TEMP 36.2–37.4; O2SAT 95–98
[2020-07-28 03:10] LABS: Hematocrit 26.2 % (42.0-52.0); Hemoglobin 8.2 g/dL (14.0-18.0); Mean Corpuscular HGB Conc 31.3 g/dl (32-36); Mean Corpuscular Hemoglobin 28.7 pg (26-34); Mean Corpuscular Volume 91.6 fl (80-100); Mean Platelet Volume 10.5 fl (7.4-10.4); Platelet Count Result 172 k/mm3 (150-375); Red Blood Count 2.86 M/mm3 (4.6-6.20); Red Cell Distribution Width 15.9 % (11.5-14.5)
[2020-07-28 03:19] LABS: Partial Thromboplastin Time 40.4 SECONDS (22.3-36.8)
[2020-07-28 03:26] LABS: Anion Gap 6 mmol/L (8-16); Blood Urea Nitrogen 46 mg/dL (9-20); Carbon Dioxide 29 mmol/L (22-30); Chloride 104 mmol/L (98-107); Estimated CRCL calculation 28 ml/min; Estimated Glomerular Filt Rate 28; Glucose 103 mg/dL (75-110); Magnesium 1.9 mg/dL (1.6-2.3); Potassium 4.3 mmol/L (3.4-5.0); Sodium 139 mmol/L (137-145)
--- NOTE | 2020-07-28 08:15 | PCOTNOTE ---
Per Dr. Copeland, discontinue OT/PT due to new skin graft. Patient to be bedrest for at least the next 5 days depending on healing process. Physician to re-order therapy services when medically appropriate.
[2020-07-28 08:17] LABS: Glucose Point of Care 104 (65-105)
[2020-07-28] MEDS: polyethylene glycoL 3350 17 GM POWD.PACK PO (08:20)
[2020-07-28] MEDS: TAMSULOSIN HCL 0.4 MG CAPSULE PO (08:21)
[2020-07-28] MEDS: PANTOPRAZOLE 40 MG TABLET PO ×2 (08:21→20:10)
[2020-07-28] MEDS: FERROUS SULFATE 324 MG TABLET PO (08:21)
[2020-07-28] MEDS: FUROSEMIDE 40 MG TABLET PO ×2 (08:21→17:44)
[2020-07-28] MEDS: METOPROLOL TARTRATE 12.5 MG TABLET PO ×2 (08:21→20:10)
[2020-07-28] MEDS: DULoxetine HCL 30 MG CAPSULE.DR PO (08:21)
[2020-07-28] MEDS: MAGNESIUM OXIDE 400 MG TABLET PO (08:22)
[2020-07-28] MEDS: MULTIVITAMINS THERAPEUTIC TAB (*BKC) 1 TABLET PO (08:22)
[2020-07-28] MEDS: PREGABALIN (*CRX) 75 MG CAPSULE PO ×2 (08:22→17:44)
[2020-07-28] MEDS: ASCORBIC ACID 500 MG TABLET PO ×2 (08:22→17:44)
[2020-07-28] MEDS: EUCERIN CREAM 120 GM JAR 1 APPLIC TOPICAL ×2 (08:23→17:45)
[2020-07-28] MEDS: hydrOXYzine HCL 25 MG TABLET PO ×4 (08:23→20:10)
[2020-07-28] MEDS: SILVERGEL (ELTA) 45 ML 1 APPLIC TOPICAL (08:24)
[2020-07-28] MEDS: FINASTERIDE 5 MG TABLET PO (08:24)
--- NOTE | 2020-07-28 08:35 | PCPTNOTE ---
Per Dr Copeland, DC PT/OT due to new skin graft. Pt to be on bedrest for at least 5 days depending on healing. Physician to reorder therapy when medically appropriate.
[2020-07-28 08:51] LABS: Immunoglobulin A 213 mg/dL (70-400); Immunoglobulin G 1885 mg/dL (700-1600); Immunoglobulin M 111 mg/dL (40-230)
[2020-07-28 09:52] LABS: Partial Thromboplastin Time 58.7 SECONDS (22.3-36.8)
[2020-07-28] MEDS: HEPARIN SOD/D5W 100 UNITS/ML 25,000 UNITS/250 ML BAG 13 UNITS IV CONT ×3 (11:06→20:13)
[2020-07-28] MEDS: HEPARIN SODIUM 5,000 UNITS/ML VIAL 3500 UNITS IV PUSH (11:07)
--- NOTE | 2020-07-28 11:54 | PCNWS ---
Weekly nutritional screen. Patient is tolerating current diet with adequate intake. No weight loss reported. No nutritional needs at this time.
--- NOTE | 2020-07-28 12:07 | WPDGIPROGNO ---
Progress Note: A&P Assessment and Plan (1) Acute blood loss anemia: Code(s): D62 - Acute posthemorrhagic anemia Status: Acute Assessment and Plan: He has been felt that his blood counts drop due to the large hematoma. He has had surgery on that left lower extremity. There are no reports or indication of active gastrointestinal bleeding at this time. I will discuss with Dr. Clifford. It is Collin to standing that endoscopy was considered shortly after admission but canceled because there was no firm evidence of the need for EGD in the patient with multiple medical problems. (2) Valvular heart disease: Code(s): I38 - Endocarditis, valve unspecified Status: Acute Assessment and Plan: He apparently had endocarditis last year for feeding this surgery which was done elsewhere Subjective Date/time seen: 07/28/20 12:07 gastroenterology is asked to see him again. On admission there was concern about possible upper GI bleed. He had been on Coumadin. There was a report of a dark stool which today the patient denies. he is however not a great historian from what I can ascertain. He denies abdominal pain he has been eating well. He does remain on her heparin. The question of a possible endoscopy had come up earlier but was postponed. 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 Exam GI: Inspection: normal to inspection GI Palp: No abdominal tenderness, Yes Soft to palpation, No Guarding due to palpation present (GI) and Yes No hepatosplenomegaly present Auscultation: normal bowel sounds Objective Data Vital Signs Vital Signs: Vital Signs - 24 hr 07/27/20 14:38 07/27/20 14:45 07/27/20 15:00 Temperature 36.1 C L Pulse Rate 84 63 74 Respiratory Rate 16 14 13 Blood Pressure 96/58 L 119/54 L 125/67 Pulse Oximetry 97 97 96 07/27/20 15:15 07/27/20 15:30 07/27/20 15:45 Temperature Pulse Rate 64 70 63 Respiratory Rate 17 12 17 Blood Pressure 125/67 119/60 124/63 Pulse Oximetry 97 96 96 07/27/20 16:00 07/27/20 16:15 07/27/20 16:30 Temperature Pulse Rate 67 66 63 Respiratory Rate 12 22 H 12 Blood Pressure 126/55 L 117/48 L 101/57 L Pulse Oximetry 96 97 95 07/27/20 16:45 07/27/20 17:00 07/27/20 17:08 Temperature Pulse Rate 65 65 70 Respiratory Rate 12 12 18 Blood Pressure 132/55 L 139/62 134/72 Pulse Oximetry 95 95 96 07/27/20 17:10 07/27/20 17:25 07/27/20 17:40 Temperature 36.4 C L 36.3 C L 36.4 C Pulse Rate 70 74 70 Respiratory Rate 16 16 18 Blood Pressure 155/62 H 137/59 L 154/63 H Pulse Oximetry 100 99 100 07/27/20 18:10 07/27/20 20:49 07/27/20 21:02 Temperature 36.4 C 36.2 C L Pulse Rate 69 60 74 Respiratory Rate 16 20 Blood Pressure 153/59 H 148/59 H Pulse Oximetry 100 99 07/28/20 05:09 07/28/20 08:21 07/28/20 10:00 Temperature 36.2 C L 37.0 C Pulse Rate 70 80 65 Respiratory Rate 18 18 Blood Pressure 111/56 L 113/46 L Pulse Oximetry 98 97 Intake/Output Intake/Output: Intake & Output 07/25/20 07/26/20 07/27/20 07/28/20 23:59 23:59 23:59 23:59 Intake Total 3380 4762 731 9714 Output Total 1100 2000 2450 400 Balance 2280 -190 -1900 880 Meds/Results Medications: Active Medications Generic Name Dose Route Start Last Admin Trade Name Freq PRN Reason Stop Dose Admin Acetaminophen 500 mg 07/18/20 11:51 Acetaminophen 500 Mg Tablet PO Q6H PRN Mild Pain (1-3) or Fever Hydrocodone Bitart/Acetaminophen 1 tab 07/18/20 11:51 07/27/20 21:04 Hydrocodone/Acetaminophen (*Crx) 5-325 Mg Tablet PO 08/06/20 11:52 1 tab Q4H PRN Administration Pain Rated 4-6 Hydrocodone Bitart/Acetaminophen 1 tab 07/18/20 11:51 07/25/20 15:29 Hydrocodone/Acetaminophen (*Crx) 7.5-325 Mg Tablet PO 08/06/20 11:52 1 tab Q4H PRN Administration Pain Rated 7-10 Ascorbic Acid 500 mg 07/13/20 09:00 07/28/20 08:22 Ascorbic Acid 500
[2020-07-28 12:11] LABS: Glucose Point of Care 143 (65-105)
--- NOTE | 2020-07-28 12:53 | WPDANESPN ---
Anes - Prog Note Post-Op Date/Time: 07/28/20 12:53 Cardiovascular status: normal Respiratory status: normal Airway patency: baseline Mental status: baseline Post-Op hydration status: normal Vital Signs: Last Vital Signs Temp 37.0 C 07/28/20 10:00 Pulse 65 07/28/20 10:00 Resp 18 07/28/20 10:00 BP 113/46 L 07/28/20 10:00 Pulse Ox 97 07/28/20 10:00 Pain Score (VAS): 0 I/O: Intake & Output 07/27/20 07/28/20 07/28/20 23:59 07:59 15:59 Intake Total 0 190 1090 Output Total 1600 400 Balance -1600 -210 1090 Laboratory Tests 07/28/20 03:04 07/28/20 03:04 07/27/20 07/27/20 07/27/20 01:17 14:46 17:27 WBC RBC Hgb Hct MCV MCH MCHC RDW Plt Count MPV APTT 38.0 H Sodium Potassium Chloride Carbon Dioxide Anion Gap BUN Creatinine Estim Creat Clear Calc Estimated GFR Glucose POC Capillary Glucose 167 H Calcium Magnesium IgG IgA IgM Serum Immunofixation SARS-CoV-2 RNA (RT-PCR) Negative 07/27/20 07/27/20 07/28/20 17:41 22:15 03:04 WBC 8.0 RBC 2.86 L Hgb 8.2 L Hct 26.2 L MCV 91.6 MCH 28.7 MCHC 31.3 L RDW 15.9 H Plt Count 172 MPV 10.5 H APTT Sodium Potassium Chloride Carbon Dioxide Anion Gap BUN Creatinine Estim Creat Clear Calc Estimated GFR Glucose POC Capillary Glucose 113 H 175 H Calcium Magnesium IgG IgA IgM Serum Immunofixation SARS-CoV-2 RNA (RT-PCR) 07/28/20 07/28/20 07/28/20 03:04 03:04 08:09 WBC RBC Hgb Hct MCV MCH MCHC RDW Plt Count MPV APTT 40.4 H Sodium 139 Potassium 4.3 Chloride 104 Carbon Dioxide 29 Anion Gap 6 L BUN 46 H Creatinine 2.30 H Estim Creat Clear Calc 28 Estimated GFR 28 L Glucose 103 POC Capillary Glucose Calcium 9.0 Magnesium 1.9 IgG IgA IgM Serum Immunofixation Pending SARS-CoV-2 RNA (RT-PCR) 07/28/20 07/28/20 07/28/20 08:09 08:09 09:22 WBC RBC Hgb Hct MCV MCH MCHC RDW Plt Count MPV APTT 58.7 H Sodium Potassium Chloride Carbon Dioxide Anion Gap BUN Creatinine Estim Creat Clear Calc Estimated GFR Glucose POC Capillary Glucose 104 Calcium Magnesium IgG 1885 H IgA 213 IgM 111 Serum Immunofixation SARS-CoV-2 RNA (RT-PCR) 07/28/20 11:38 WBC RBC Hgb Hct MCV MCH MCHC RDW Plt Count MPV APTT Sodium Potassium Chloride Carbon Dioxide Anion Gap BUN Creatinine Estim Creat Clear Calc Estimated GFR Glucose POC Capillary Glucose 143 H Calcium Magnesium IgG IgA IgM Serum Immunofixation SARS-CoV-2 RNA (RT-PCR) Post-procedural complaints: none Patient Feedback: Patient satisfied with anesthetic care.
--- NOTE | 2020-07-28 13:25 | PM.PNNEP ---
Progress Note: A&P Assessment and Plan (1) ANDRADE (acute kidney injury): Code(s): N17.9 - Acute kidney failure, unspecified Status: Acute Assessment and Plan: resolving/resolved multifactorial etiology: - severe anemia on admission - relative hypotension (100s systolic on presentation)/prerenal issues - concurrent use of diuretics prior to admission -infection/inflammation from leg wounds? electrolytes stable and reasonable UOP (on diuretics) continue supportive therapy (2) Chronic kidney disease, stage IV (severe): Code(s): N18.4 - Chronic kidney disease, stage 4 (severe) Status: Chronic Assessment and Plan: due to chronic diuretics, diabetes, age, and vascular disease baseline creatinine ~ 1.6 - 2.1mg/dl (3) Anemia: Code(s): D64.9 - Anemia, unspecified Status: Acute Assessment and Plan: due to a combination of previous hematuria, supratherapuetic INR, hematoma, low platelet count, and melena On Epogen while hospitalized following H/H (4) Hematoma of left lower extremity: Qualifiers: Encounter type: initial encounter Qualified Code(s): S80.12XA - Contusion of left lower leg, initial encounter Code(s): S80.12XA - Contusion of left lower leg, initial encounter Status: Resolved Assessment and Plan: status/post incision and drainage as well as debridement and skin grafting General Surgery and Plastic Surgery following local wound care (5) Chronic venous insufficiency of lower extremity: Code(s): I87.2 - Venous insufficiency (chronic) (peripheral) Status: Chronic Assessment and Plan: wound care following pain control (6) CHF (congestive heart failure): Qualifiers: Heart failure chronicity: acute on chronic Heart failure type: unspecified Qualified Code(s): I50.9 - Heart failure, unspecified Code(s): I50.9 - Heart failure, unspecified Status: Chronic Assessment and Plan: on oral lasix at this time due last CXR and previous symptoms of SOB, lasix increased to BID frequency follow respiratory status Will continue to follow. Subjective Date/time seen: 07/28/20 13:25 Unable to see yesterday as was out of room/in OR for his surgical procedure yesterday; s/p debridement and skin grafting to left lower extremity yesterday and tolerated the procedure reasonably well; no apparent distress voiced at this time; no events overnight. Exam Narrative: Exam Narrative: General: Elderly male in NAD Heart: normal S1 and S2; no rub Lungs: clear anteriorly Abdomen: soft, nontender, nondistended, positive bowel sounds Extremities: trace - 1+ edema noted Skin: chronic venous stasis + multiple wounds/scabs/blisters; dressings over left lower extremity Objective Data Vital Signs Vital Signs: Vital Signs Temp Pulse Resp BP Pulse Ox 07/28/20 10:00 37.0 C 65 18 113/46 L 97 07/28/20 08:21 80 07/28/20 05:09 36.2 C L 70 18 111/56 L 98 07/27/20 21:02 36.2 C L 74 20 148/59 H 99 07/27/20 20:49 60 07/27/20 18:10 36.4 C 69 16 153/59 H 100 07/27/20 17:40 36.4 C 70 18 154/63 H 100 07/27/20 17:25 36.3 C L 74 16 137/59 L 99 07/27/20 17:10 36.4 C L 70 16 155/62 H 100 07/27/20 17:08 70 18 134/72 96 07/27/20 17:00 65 12 139/62 95 07/27/20 16:45 65 12 132/55 L 95 07/27/20 16:30 63 12 101/57 L 95 07/27/20 16:15 66 22 H 117/48 L 97 07/27/20 16:00 67 12 126/55 L 96 07/27/20 15:45 63 17 124/63 96 07/27/20 15:30 70 12 119/60 96 07/27/20 15:15 64 17 125/67 97 07/27/20 15:00 74 13 125/67 96 07/27/20 14:45 63 14 119/54 L 97 07/27/20 14:38 36.1 C L 84 16 96/58 L 97 Intake/Output Intake/Output: Intake & Output 07/25/20 07/26/20 07/27/20 07/28/20 23:59 23:59 23:59 23:59 Intake Total 3380 1810
[2020-07-28] MEDS: EPOETIN ALFA-EPBX 10,000 UNITS/ML VIAL 10000 UNITS SUB-Q (14:48)
--- NOTE | 2020-07-28 15:00 | WPDPN ---
Progress Note: A&P Assessment and Plan (1) Open wound of left lower extremity: Code(s): S81.802A - Unspecified open wound, left lower leg, initial encounter Status: Acute Assessment and Plan: Doing well after debridement / STSG left lower extremity. Will leave dressing occlusive 5-7 days. Leave back dressing in place as well. [place]IN [facility]. (2) Hematoma of left lower extremity: Qualifiers: Encounter type: initial encounter Qualified Code(s): S80.12XA - Contusion of left lower leg, initial encounter Code(s): S80.12XA - Contusion of left lower leg, initial encounter Status: Resolved Exam Narrative: Exam Narrative: Left lower extremity dressing clean, dry, intact. Will reinforce provide extra protection. Back dressing in place. Objective Data Vital Signs Vital Signs: Vital Signs - 24 hr 07/27/20 15:15 07/27/20 15:30 07/27/20 15:45 Temperature Pulse Rate 64 70 63 Respiratory Rate 17 12 17 Blood Pressure 125/67 119/60 124/63 Pulse Oximetry 97 96 96 07/27/20 16:00 07/27/20 16:15 07/27/20 16:30 Temperature Pulse Rate 67 66 63 Respiratory Rate 12 22 H 12 Blood Pressure 126/55 L 117/48 L 101/57 L Pulse Oximetry 96 97 95 07/27/20 16:45 07/27/20 17:00 07/27/20 17:08 Temperature Pulse Rate 65 65 70 Respiratory Rate 12 12 18 Blood Pressure 132/55 L 139/62 134/72 Pulse Oximetry 95 95 96 07/27/20 17:10 07/27/20 17:25 07/27/20 17:40 Temperature 36.4 C L 36.3 C L 36.4 C Pulse Rate 70 74 70 Respiratory Rate 16 16 18 Blood Pressure 155/62 H 137/59 L 154/63 H Pulse Oximetry 100 99 100 07/27/20 18:10 07/27/20 20:49 07/27/20 21:02 Temperature 36.4 C 36.2 C L Pulse Rate 69 60 74 Respiratory Rate 16 20 Blood Pressure 153/59 H 148/59 H Pulse Oximetry 100 99 07/28/20 05:09 07/28/20 08:21 07/28/20 10:00 Temperature 36.2 C L 37.0 C Pulse Rate 70 80 65 Respiratory Rate 18 18 Blood Pressure 111/56 L 113/46 L Pulse Oximetry 98 97 07/28/20 14:00 Temperature 37.4 C Pulse Rate 91 Respiratory Rate 20 Blood Pressure 120/51 L Pulse Oximetry 95 Intake/Output Intake/Output: Intake & Output 07/25/20 07/26/20 07/27/20 07/28/20 23:59 23:59 23:59 23:59 Intake Total 3380 6058 722 8404 Output Total 1100 2000 2450 400 Balance 2280 -190 -1900 1120 Meds/Results Medications: Active Medications Generic Name Dose Route Start Last Admin Trade Name Freq PRN Reason Stop Dose Admin Acetaminophen 500 mg 07/18/20 11:51 Acetaminophen 500 Mg Tablet PO Q6H PRN Mild Pain (1-3) or Fever Hydrocodone Bitart/Acetaminophen 1 tab 07/18/20 11:51 07/27/20 21:04 Hydrocodone/Acetaminophen (*Crx) 5-325 Mg Tablet PO 08/06/20 11:52 1 tab Q4H PRN Administration Pain Rated 4-6 Hydrocodone Bitart/Acetaminophen 1 tab 07/18/20 11:51 07/25/20 15:29 Hydrocodone/Acetaminophen (*Crx) 7.5-325 Mg Tablet PO 08/06/20 11:52 1 tab Q4H PRN Administration Pain Rated 7-10 Ascorbic Acid 500 mg 07/13/20 09:00 07/28/20 08:22 Ascorbic Acid 500 Mg Tablet PO 500 mg BID MARY Administration Atorvastatin Calcium 40 mg 07/12/20 21:10 07/27/20 20:49 Atorvastatin 40 Mg Tablet PO 40 mg HS MARY Administration Bisacodyl 10 mg 07/12/20 20:58 Bisacodyl 10 Mg Suppository RECTAL DAILY PRN Constipation Clotrimazole 1 applic 07/13/20 11:00 07/19/20 22:47 Betamethasone/Clotrimazole Cr 15 Gm Tube TOPICAL Not Given Q12HR MARY Cyclobenzaprine HCl 5 mg 07/12/20 20:58 Cyclobenzaprine Hcl 5 Mg Tablet PO TID PRN Muscle Spasm Dextrose 12.5 gm 07/12/20 21:00 Dextrose 50% 25 Gm/50 Ml Syringe IV PUSH PRN PRN Hypoglycemia Protocol Duloxetine HCl 30 mg 07/13/20 09:00 07/28/20 08:21 Duloxetine Hcl 30 Mg Capsule.Dr PO 30 mg DAILY MARY Administration Epoetin Zaid-epbx 10,000 units 07/19/20 14:15 07/28/20 14:48 Epoetin Zaid-Epbx 10,000 Units/Ml Vial SUB-Q 10,000 units
[2020-07-28 16:55] LABS: Glucose Point of Care 145 (65-105)
[2020-07-28 17:35] LABS: Partial Thromboplastin Time 78.8 SECONDS (22.3-36.8)
--- NOTE | 2020-07-28 17:48 | PM.IMPN ---
Progress Note: A&P Assessment and Plan (1) Hematoma of left lower extremity: Qualifiers: Encounter type: initial encounter Qualified Code(s): S80.12XA - Contusion of left lower leg, initial encounter Code(s): S80.12XA - Contusion of left lower leg, initial encounter Status: Resolved Assessment and Plan: He has a large, dark purple hematoma of left posterior calf. He denies any recent trauma or injury but clarifies this stating he did have a fall prior to admission. The area was exquisitely tender and leg was edematous. This is likely source for anemia. Left lower extremity CT demonstrates large subcutaneous hematoma. General surgery was consulted and patient now s/p debridement of left calf hematoma on 07/18/20. Patient tolerated the procedure well. Plastic surgery consulted and patient now s/p skin grafting 07/27. Plan for SNF placement at discharge. (2) Acute blood loss anemia: Code(s): D62 - Acute posthemorrhagic anemia Status: Acute Assessment and Plan: Acute on chronic normocytic anemia. He was recently hospitalized in May 2020 and underwent blood transfusion at that time. Hemoglobin 5.8 on admission and has decreasing Hgb at times; he has required a total of 6 units pRBC. His last transfusion was on 07/18 and Hgb has been stable since that time running in the 7-8 range. Suspected source of anemia this admission is from posterior left calf hematoma. Additional concern for GI component given reported episode of melena prior to presentation and positive fecal occult blood test but no further testing required. Hgb stable recently in the 8 range. Continue to monitor H&H closely since Coumadin to be resumed. (3) Occult blood in stools: Code(s): R19.5 - Other fecal abnormalities Status: Acute Assessment and Plan: Reports of melena prior to presentation. Fecal occult blood test positive on 07/16/2020. Gastroenterology is following and input is appreciated. Considering EGD but left leg hematoma appears to be more acute source of blood loss. Continue Protonix daily. Per GI, no further testing required. (4) Aortic valve replaced: Code(s): Z95.2 - Presence of prosthetic heart valve Status: Inactive Assessment and Plan: He is maintained on chronic warfarin for atrial fibrillation and for a mechanical aortic valve. INR goal is 2.0-3.0. INR was 3.4 at presentation. He received 1 unit FFP on 07/15 to bring down INR for procedure planning. Heparin drip resumed; add Coumadin back with daily INRs. (5) Acute on chronic renal failure: Qualifiers: Acute renal failure type: unspecified Chronic kidney disease stage: stage 3 (moderate) Chronic kidney disease stage 3 subtype: stage 3b (GFR 30-44) Qualified Code(s): N17.9 - Acute kidney failure, unspecified; N18.32 - Chronic kidney disease, stage 3b Code(s): N17.9 - Acute kidney failure, unspecified; N18.9 - Chronic kidney disease, unspecified Status: Acute Assessment and Plan: Baseline creatinine appears to be variable, around 2.0. Creatinine upon presentation is 2.7. Suspect acute injury is multifactorial when considering diuresis, relative hypotension, and profound anemia. Renal US showed cortical thinning without hydronephrosis. [place]>Eamon light chain with positive SPEP with M spike. Creatinine is 2.3 today. Continue to follow closely with the addition of ACEI. Will check SIF and UIF. Discussed with Nephrology. Will consult Oncology since this would be a good time for BM Bx if it is required. (6) CHF (congestive heart failure): Qualifiers: Heart failure chronicity: acute on chronic Heart failure type: unspecified Qualified Code(s): I50.9 - Heart failure, unspecified Code(s): I50.9 - Heart failure, unspecified Status: Chronic Assessment and Plan: Last echo in October 2019 showed reduced EF of 30-35%. BNP elevate
[2020-07-28] MEDS: WARFARIN (*PBKC) 2 MG TABLET PO (19:02)
[2020-07-28] MEDS: ATORVASTATIN 40 MG TABLET PO (20:10)
[2020-07-28] MEDS: SENNOSIDES 8.6 MG TABLET 17.2 MG PO (20:10)
[2020-07-28] MEDS: traZODone HCL 25 MG TABLET PO (20:10)
[2020-07-28] MEDS: MELATONIN 3 MG TABLET 6 MG PO (20:11)
[2020-07-28 23:15] LABS: Glucose Point of Care 196 (65-105)
[2020-07-28 23:48] LABS: Partial Thromboplastin Time 74.9 SECONDS (22.3-36.8)
[2020-07-29 05:05] VITALS: BP 125/54; PULSE 81; RESP 16; TEMP 36.3; O2SAT 96
[2020-07-29 05:34] LABS: Hematocrit 26.2 % (42.0-52.0); Hemoglobin 8.2 g/dL (14.0-18.0); Mean Corpuscular HGB Conc 31.3 g/dl (32-36); Mean Corpuscular Hemoglobin 28.2 pg (26-34); Platelet Count Result 164 k/mm3 (150-375); Red Blood Count 2.91 M/mm3 (4.6-6.20); Red Cell Distribution Width 15.9 % (11.5-14.5); White Blood Count 7.5 K/mm3 (4.5-10.0)
[2020-07-29 05:47] LABS: INR 1.3; Prothrombin Time 16.5 Seconds (11.1-14.7)
[2020-07-29 05:49] LABS: Partial Thromboplastin Time 80.2 SECONDS (22.3-36.8)
[2020-07-29 05:55] LABS: Anion Gap 4 mmol/L (8-16); Blood Urea Nitrogen 42 mg/dL (9-20); Calcium 8.8 mg/dL (8.4-10.2); Carbon Dioxide 28 mmol/L (22-30); Chloride 105 mmol/L (98-107); Estimated CRCL calculation 28 ml/min; Estimated Glomerular Filt Rate 28; Glucose 128 mg/dL (75-110); Potassium 4.1 mmol/L (3.4-5.0); Sodium 137 mmol/L (137-145)
[2020-07-29 07:28] LABS: Glucose Point of Care 136 (65-105)
[2020-07-29] MEDS: DULoxetine HCL 30 MG CAPSULE.DR PO (09:56)
[2020-07-29] MEDS: MULTIVITAMINS THERAPEUTIC TAB (*BKC) 1 TABLET PO (09:56)
[2020-07-29] MEDS: ASCORBIC ACID 500 MG TABLET PO ×2 (09:56→17:40)
[2020-07-29] MEDS: FINASTERIDE 5 MG TABLET PO (09:56)
[2020-07-29] MEDS: FERROUS SULFATE 324 MG TABLET PO (09:56)
[2020-07-29] MEDS: lisinopriL 5 MG TABLET PO (09:57)
[2020-07-29] MEDS: MAGNESIUM OXIDE 400 MG TABLET PO (09:57)
[2020-07-29] MEDS: hydrOXYzine HCL 25 MG TABLET PO ×4 (09:57→20:05)
[2020-07-29] MEDS: FUROSEMIDE 40 MG TABLET PO ×2 (09:57→17:40)
[2020-07-29] MEDS: PANTOPRAZOLE 40 MG TABLET PO ×2 (09:58→20:04)
[2020-07-29] MEDS: PREGABALIN (*CRX) 75 MG CAPSULE PO ×2 (09:58→17:40)
[2020-07-29] MEDS: EUCERIN CREAM 120 GM JAR 1 APPLIC TOPICAL ×2 (09:58→17:41)
[2020-07-29 09:59] VITALS: PULSE 76
[2020-07-29] MEDS: METOPROLOL TARTRATE 12.5 MG TABLET PO ×2 (09:59→20:05)
[2020-07-29] MEDS: SILVERGEL (ELTA) 45 ML 1 APPLIC TOPICAL (09:59)
[2020-07-29] MEDS: TAMSULOSIN HCL 0.4 MG CAPSULE PO (09:59)
[2020-07-29 10:00] VITALS: BP 144/48; PULSE 77; RESP 18; TEMP 36.3; O2SAT 99
--- NOTE | 2020-07-29 11:30 | PM.PNNEP ---
Progress Note: A&P Assessment and Plan (1) ANDRADE (acute kidney injury): Code(s): N17.9 - Acute kidney failure, unspecified Status: Acute Assessment and Plan: resolving/resolved multifactorial etiology: - severe anemia on admission - relative hypotension (100s systolic on presentation)/prerenal issues - concurrent use of diuretics prior to admission -infection/inflammation from leg wounds? electrolytes stable and reasonable UOP (on diuretics) noted elevated kappa/lamda ratio along with M-spike on SPEP (possible MGUS?) - serum/urine immunofixation pending - Hem/Onc consulted for further evaluation (did have pancytopenia on presentation as well) continue supportive therapy (2) Chronic kidney disease, stage IV (severe): Code(s): N18.4 - Chronic kidney disease, stage 4 (severe) Status: Chronic Assessment and Plan: due to chronic diuretics, diabetes, age, and vascular disease baseline creatinine ~ 1.6 - 2.1mg/dl (3) Anemia: Code(s): D64.9 - Anemia, unspecified Status: Acute Assessment and Plan: due to a combination of previous hematuria, supratherapuetic INR, hematoma, low platelet count, and melena On Epogen while hospitalized following H/H (4) Hematoma of left lower extremity: Qualifiers: Encounter type: initial encounter Qualified Code(s): S80.12XA - Contusion of left lower leg, initial encounter Code(s): S80.12XA - Contusion of left lower leg, initial encounter Status: Resolved Assessment and Plan: status/post incision and drainage as well as debridement and skin grafting General Surgery and Plastic Surgery following local wound care (5) Chronic venous insufficiency of lower extremity: Code(s): I87.2 - Venous insufficiency (chronic) (peripheral) Status: Chronic Assessment and Plan: wound care following pain control (6) CHF (congestive heart failure): Qualifiers: Heart failure chronicity: acute on chronic Heart failure type: unspecified Qualified Code(s): I50.9 - Heart failure, unspecified Code(s): I50.9 - Heart failure, unspecified Status: Chronic Assessment and Plan: on oral lasix at this time follow respiratory status started on low dose VIELKA-I today Will continue to follow. Subjective Date/time seen: 07/29/20 11:30 Appears to be doing quite well at the time of my visit; no apparent pain or distress voiced; remains on heparin gtt; otherwise, feels reasonablhy well; no acute issues/events overnight or earlier this AM. Exam Narrative: Exam Narrative: General: Elderly male in NAD Heart: normal S1 and S2; no rub Lungs: clear anteriorly Abdomen: soft, nontender, nondistended, positive bowel sounds Extremities: trace - 1+ edema Skin: chronic venous stasis along with multiple wounds/scabs/blisters; dressings over left lower extremity in place Objective Data Vital Signs Vital Signs: Vital Signs Temp Pulse Resp BP Pulse Ox 07/29/20 10:00 36.3 C L 77 18 144/48 H 99 07/29/20 09:59 76 07/29/20 05:05 36.3 C L 81 16 125/54 L 96 07/28/20 21:59 36.5 C 96 16 138/60 96 07/28/20 20:10 82 07/28/20 20:00 82 16 95 07/28/20 18:00 37.4 C 82 16 138/69 95 07/28/20 14:00 37.4 C 91 20 120/51 L 95 Intake/Output Intake/Output: Intake & Output 07/26/20 07/27/20 07/28/20 07/29/20 23:59 23:59 23:59 23:59 Intake Total 6303 333 9867 680 Output Total 1999 2450 400 700 Balance -190 -1900 2220 -20 Meds/Results Medications: Active Medications Generic Name Dose Route Start Last Admin Trade Name Freq PRN Reason Stop Dose Admin Acetaminophen 500 mg 07/18/20 11:51 Acetaminophen 500 Mg Tablet PO Q6H PRN Mild Pain (1-3) or Fever Hydrocodone Bitart/Acetaminophen 1 tab 07/18/20 11:51 07/27/20 21:04 Hydrocodone/Aceta
[2020-07-29 11:57] LABS: Glucose Point of Care 128 (65-105)
--- NOTE | 2020-07-29 13:33 | PM.IMPN ---
Progress Note: A&P Assessment and Plan (1) Hematoma of left lower extremity: Qualifiers: Encounter type: initial encounter Qualified Code(s): S80.12XA - Contusion of left lower leg, initial encounter Code(s): S80.12XA - Contusion of left lower leg, initial encounter Status: Resolved Assessment and Plan: He has a large, dark purple hematoma of left posterior calf. He denied any recent trauma or injury but clarified this stating he did have a fall prior to admission. The area was exquisitely tender and leg was edematous. This is likely source for anemia. Left lower extremity CT demonstrates large subcutaneous hematoma. General surgery was consulted and patient now s/p debridement of left calf hematoma on 07/18/20. Patient tolerated the procedure well. Plastic surgery consulted and patient now s/p skin grafting 07/27. Plan for SNF placement at discharge. (2) Acute blood loss anemia: Code(s): D62 - Acute posthemorrhagic anemia Status: Acute Assessment and Plan: Acute on chronic normocytic anemia. He was recently hospitalized in May 2020 and underwent blood transfusion at that time. Hemoglobin 5.8 on admission and has decreasing Hgb at times; he has required a total of 6 units pRBC. His last transfusion was on 07/18 and Hgb has been stable since that time running in the 7-8 range. Suspected source of anemia this admission is from posterior left calf hematoma. Additional concern for GI component given reported episode of melena prior to presentation and positive fecal occult blood test but no further testing required per GI. Hgb stable recently in the 8 range. Continue to monitor H&H closely since Coumadin to be resumed. (3) Occult blood in stools: Code(s): R19.5 - Other fecal abnormalities Status: Acute Assessment and Plan: Reports of melena prior to presentation. Fecal occult blood test positive on 07/16/2020. Gastroenterology is following and input is appreciated. EGD was being considered but left leg hematoma appears to be more acute source of blood loss. Continue Protonix daily. Per GI, no further testing required. (4) Aortic valve replaced: Code(s): Z95.2 - Presence of prosthetic heart valve Status: Inactive Assessment and Plan: He is maintained on chronic warfarin for atrial fibrillation and for a mechanical aortic valve. INR goal is 2.0-3.0. INR was 3.4 at presentation. He received 1 unit FFP on 07/15 to bring down INR for procedure planning. Heparin drip resumed post procedure; Coumadin resumed with daily INRs. (5) Acute on chronic renal failure: Qualifiers: Acute renal failure type: unspecified Chronic kidney disease stage: stage 3 (moderate) Chronic kidney disease stage 3 subtype: stage 3b (GFR 30-44) Qualified Code(s): N17.9 - Acute kidney failure, unspecified; N18.32 - Chronic kidney disease, stage 3b Code(s): N17.9 - Acute kidney failure, unspecified; N18.9 - Chronic kidney disease, unspecified Status: Acute Assessment and Plan: Baseline creatinine appears to be variable, around 2.0. Creatinine upon presentation is 2.7. Suspect acute injury is multifactorial when considering diuresis, relative hypotension, and profound anemia. Renal US showed cortical thinning without hydronephrosis. [place]>Eamon light chain with positive SPEP with M spike. Creatinine is 2.3 again today. Continue to follow closely with the addition of ACEI. SIF and UIF ordered. Discussed with Nephrology. Will consult Oncology since this would be a good time for BM Bx if it is required. (6) CHF (congestive heart failure): Qualifiers: Heart failure chronicity: acute on chronic Heart failure type: unspecified Qualified Code(s): I50.9 - Heart failure, unspecified Code(s): I50.9 - Heart failure, unspecified Status: Chronic Assessment and Plan: Last echo in October 2019 showed r
[2020-07-29 14:00] VITALS: BP 130/62; PULSE 67; RESP 18; TEMP 36.6; O2SAT 97
[2020-07-29] MEDS: HEPARIN SOD/D5W 100 UNITS/ML 25,000 UNITS/250 ML BAG 13 UNITS IV CONT (15:32)
[2020-07-29 17:19] LABS: Glucose Point of Care 149 (65-105)
[2020-07-29] MEDS: WARFARIN (*PBKC) 2 MG TABLET PO (17:40)
[2020-07-29] MEDS: SENNOSIDES 8.6 MG TABLET 17.2 MG PO (20:04)
[2020-07-29] MEDS: MELATONIN 3 MG TABLET 6 MG PO (20:04)
[2020-07-29 20:05] VITALS: PULSE 92
[2020-07-29] MEDS: traZODone HCL 25 MG TABLET PO (20:05)
[2020-07-29] MEDS: ATORVASTATIN 40 MG TABLET PO (20:05)
[2020-07-29 20:59] LABS: Glucose Point of Care 189 (65-105)
[2020-07-29 21:31] VITALS: BP 132/70; PULSE 92; RESP 16; TEMP 36.9; O2SAT 96
[2020-07-30 05:20] LABS: Hemoglobin 8.2 g/dL (14.0-18.0); Mean Corpuscular HGB Conc 31.5 g/dl (32-36); Mean Corpuscular Hemoglobin 28.1 pg (26-34); Mean Platelet Volume 11.1 fl (7.4-10.4); Platelet Count Result 167 k/mm3 (150-375); Red Blood Count 2.92 M/mm3 (4.6-6.20); Red Cell Distribution Width 16.1 % (11.5-14.5); White Blood Count 7.6 K/mm3 (4.5-10.0)
[2020-07-30 05:41] LABS: Anion Gap 8 mmol/L (8-16); Blood Urea Nitrogen 43 mg/dL (9-20); Calcium 9.1 mg/dL (8.4-10.2); Carbon Dioxide 26 mmol/L (22-30); Chloride 104 mmol/L (98-107); Estimated CRCL calculation 32 ml/min; Estimated Glomerular Filt Rate 33; Glucose 119 mg/dL (75-110); Potassium 4.3 mmol/L (3.4-5.0); Sodium 138 mmol/L (137-145)
[2020-07-30 05:55] LABS: INR 1.2; Prothrombin Time 15.6 Seconds (11.1-14.7)
[2020-07-30 06:00] VITALS: BP 130/59; PULSE 59; RESP 16; TEMP 36.1; O2SAT 98
[2020-07-30 07:13] LABS: Glucose Point of Care 132 (65-105)
[2020-07-30] MEDS: FUROSEMIDE 40 MG TABLET PO ×2 (08:59→17:02)
[2020-07-30] MEDS: ASCORBIC ACID 500 MG TABLET PO ×2 (08:59→17:02)
[2020-07-30] MEDS: lisinopriL 5 MG TABLET PO (08:59)
[2020-07-30] MEDS: hydrOXYzine HCL 25 MG TABLET PO ×4 (08:59→20:58)
[2020-07-30] MEDS: DULoxetine HCL 30 MG CAPSULE.DR PO (08:59)
[2020-07-30] MEDS: FINASTERIDE 5 MG TABLET PO (08:59)
[2020-07-30] MEDS: FERROUS SULFATE 324 MG TABLET PO (08:59)
[2020-07-30] MEDS: MAGNESIUM OXIDE 400 MG TABLET PO (08:59)
[2020-07-30] MEDS: EUCERIN CREAM 120 GM JAR 1 APPLIC TOPICAL ×2 (09:00→17:05)
[2020-07-30] MEDS: SILVERGEL (ELTA) 45 ML 1 APPLIC TOPICAL (09:00)
[2020-07-30] MEDS: PREGABALIN (*CRX) 75 MG CAPSULE PO ×2 (09:00→17:04)
[2020-07-30] MEDS: TAMSULOSIN HCL 0.4 MG CAPSULE PO (09:00)
[2020-07-30] MEDS: MULTIVITAMINS THERAPEUTIC TAB (*BKC) 1 TABLET PO (09:00)
[2020-07-30] MEDS: PANTOPRAZOLE 40 MG TABLET PO ×2 (09:00→20:58)
[2020-07-30 09:01] VITALS: PULSE 80
[2020-07-30] MEDS: METOPROLOL TARTRATE 12.5 MG TABLET PO ×2 (09:01→20:59)
[2020-07-30] MEDS: HEPARIN SOD/D5W 100 UNITS/ML 25,000 UNITS/250 ML BAG 13 UNITS IV CONT (11:13)
--- NOTE | 2020-07-30 12:16 | P.PNNP_ITS ---
Progress Note: A&P Assessment and Plan (1) ANDRADE (acute kidney injury): Code(s): N17.9 - Acute kidney failure, unspecified Status: Acute Assessment and Plan: * resolving/resolved * multifactorial etiology: - severe anemia on admission - relative hypotension (100s systolic on presentation)/prerenal issues - concurrent use of diuretics prior to admission -infection/inflammation from leg wounds? * electrolytes stable and reasonable UOP (on diuretics) * noted elevated kappa/lamda ratio along with M-spike on SPEP (possible MGUS?) - serum/urine immunofixation pending - Hem/Onc consulted for further evaluation (did have pancytopenia on presentation as well) * continue supportive therapy (2) Chronic kidney disease, stage IV (severe): Code(s): N18.4 - Chronic kidney disease, stage 4 (severe) Status: Chronic Assessment and Plan: * due to chronic diuretics, diabetes, age, and vascular disease * baseline creatinine ~ 1.6 - 2.1mg/dl (3) Anemia: Code(s): D64.9 - Anemia, unspecified Status: Acute Assessment and Plan: * due to a combination of previous hematuria, supratherapuetic INR, hematoma, low platelet count, and melena * on Epogen while hospitalized * following H/H (4) Hematoma of left lower extremity: Qualifiers: Encounter type: initial encounter Qualified Code(s): S80.12XA - Contusion of left lower leg, initial encounter Code(s): S80.12XA - Contusion of left lower leg, initial encounter Status: Resolved Assessment and Plan: * status/post incision and drainage as well as debridement with skin grafting * General Surgery and Plastic Surgery following * local wound care (5) Chronic venous insufficiency of lower extremity: Code(s): I87.2 - Venous insufficiency (chronic) (peripheral) Status: Chronic Assessment and Plan: * wound care following * pain control (6) CHF (congestive heart failure): Qualifiers: Heart failure chronicity: acute on chronic Heart failure type: unspecified Qualified Code(s): I50.9 - Heart failure, unspecified Code(s): I50.9 - Heart failure, unspecified Status: Chronic Assessment and Plan: * on oral lasix at this time * follow respiratory status * started on low dose VIELKA-I and tolerating * check CXR later today Will continue to follow. Subjective Date/time seen: 07/30/20 12:16 Appears to be doing reasonably well without any acute issues or problems; making good urine output with diuretics and respiratory status seems stable if not better; no acute distress voiced; remains on heparin gtt; no events overnight or earlier this AM. Exam Narrative: Exam Narrative: General: Elderly male in NAD Heart: normal S1 and S2; no rub Lungs: clear anteriorly Abdomen: soft, nontender, nondistended, positive bowel sounds Extremities: trace - 1+ edema Skin: chronic venous stasis + multiple wounds/scabs/blisters healing + dressings over left lower extremity in place Objective Data Vital Signs Vital Signs: Vital Signs Temp Pulse Resp BP Pulse Ox 07/30/20 09:01 80 07/30/20 06:00 36.1 C L 59 L 16 130/59 L 98 07/29/20 21:31 36.9 C 92 16 132/70 96 07/29/20 20:05 92 07/29/20 14:00 36.6 C 67 18 130/62 97 Intake/Output Intake/Output:
--- NOTE | 2020-07-30 12:16 | PM.PNNEP ---
Progress Note: A&P Assessment and Plan (1) ANDRADE (acute kidney injury): Code(s): N17.9 - Acute kidney failure, unspecified Status: Acute Assessment and Plan: resolving/resolved multifactorial etiology: - severe anemia on admission - relative hypotension (100s systolic on presentation)/prerenal issues - concurrent use of diuretics prior to admission -infection/inflammation from leg wounds? electrolytes stable and reasonable UOP (on diuretics) noted elevated kappa/lamda ratio along with M-spike on SPEP (possible MGUS?) - serum/urine immunofixation pending - Hem/Onc consulted for further evaluation (did have pancytopenia on presentation as well) continue supportive therapy (2) Chronic kidney disease, stage IV (severe): Code(s): N18.4 - Chronic kidney disease, stage 4 (severe) Status: Chronic Assessment and Plan: due to chronic diuretics, diabetes, age, and vascular disease baseline creatinine ~ 1.6 - 2.1mg/dl (3) Anemia: Code(s): D64.9 - Anemia, unspecified Status: Acute Assessment and Plan: due to a combination of previous hematuria, supratherapuetic INR, hematoma, low platelet count, and melena on Epogen while hospitalized following H/H (4) Hematoma of left lower extremity: Qualifiers: Encounter type: initial encounter Qualified Code(s): S80.12XA - Contusion of left lower leg, initial encounter Code(s): S80.12XA - Contusion of left lower leg, initial encounter Status: Resolved Assessment and Plan: status/post incision and drainage as well as debridement with skin grafting General Surgery and Plastic Surgery following local wound care (5) Chronic venous insufficiency of lower extremity: Code(s): I87.2 - Venous insufficiency (chronic) (peripheral) Status: Chronic Assessment and Plan: wound care following pain control (6) CHF (congestive heart failure): Qualifiers: Heart failure chronicity: acute on chronic Heart failure type: unspecified Qualified Code(s): I50.9 - Heart failure, unspecified Code(s): I50.9 - Heart failure, unspecified Status: Chronic Assessment and Plan: on oral lasix at this time follow respiratory status started on low dose VIELKA-I and tolerating check CXR later today Will continue to follow. Subjective Date/time seen: 07/30/20 12:16 Appears to be doing reasonably well without any acute issues or problems; making good urine output with diuretics and respiratory status seems stable if not better; no acute distress voiced; remains on heparin gtt; no events overnight or earlier this AM. Exam Narrative: Exam Narrative: General: Elderly male in NAD Heart: normal S1 and S2; no rub Lungs: clear anteriorly Abdomen: soft, nontender, nondistended, positive bowel sounds Extremities: trace - 1+ edema Skin: chronic venous stasis + multiple wounds/scabs/blisters healing + dressings over left lower extremity in place Objective Data Vital Signs Vital Signs: Vital Signs Temp Pulse Resp BP Pulse Ox 07/30/20 09:01 80 07/30/20 06:00 36.1 C L 59 L 16 130/59 L 98 07/29/20 21:31 36.9 C 92 16 132/70 96 07/29/20 20:05 92 07/29/20 14:00 36.6 C 67 18 130/62 97 Intake/Output Intake/Output: Intake & Output 07/27/20 07/28/20 07/29/20 07/30/20 23:59 23:59 23:59 23:59 Intake Total 550 2620 2009 190 Output Total 2450 400 1900 1950 Balance -1900 2220 110 -48 Meds/Results Medications: Active Medications Generic Name Dose Route Start Last Admin Trade Name Freq PRN Reason Stop Dose Admin Acetaminophen 500 mg 07/18/20 11:51 Acetaminophen 500 Mg Tablet PO Q6H PRN Mild Pain (1-3) or Fever Hydrocodone Bitart/Acetaminophen 1 tab 07/18/20 11:51 07/27/20 21:04 Hydrocodone/Acetaminophen (*Crx) 5-325 Mg Tablet PO 0
[2020-07-30 12:20] LABS: Glucose Point of Care 147 (65-105)
[2020-07-30 14:00] VITALS: BP 133/64; PULSE 89; RESP 16; TEMP 36.6; O2SAT 98
[2020-07-30] MEDS: WARFARIN (*PBKC) 2.5 MG TABLET PO (17:04)
--- NOTE | 2020-07-30 18:22 | PM.IMPN ---
Progress Note: A&P Assessment and Plan (1) Hematoma of left lower extremity: Qualifiers: Encounter type: initial encounter Qualified Code(s): S80.12XA - Contusion of left lower leg, initial encounter Code(s): S80.12XA - Contusion of left lower leg, initial encounter Status: Resolved Assessment and Plan: He has a large, dark purple hematoma of left posterior calf. Related to recent trauma from a fall just prior to admission. The area was exquisitely tender and leg was edematous. This is likely source for anemia. Left lower extremity CT demonstrates large subcutaneous hematoma. General surgery was consulted and patient now s/p debridement of left calf hematoma on 07/18/20. Patient tolerated the procedure well. Plastic surgery consulted and patient now s/p skin grafting 07/27. Needs bedrest for 5 days. Plan for SNF placement at discharge. (2) Acute blood loss anemia: Code(s): D62 - Acute posthemorrhagic anemia Status: Acute Assessment and Plan: Acute on chronic normocytic anemia. He was recently hospitalized in May 2020 for gross heamturia and underwent blood transfusion at that time. Hemoglobin 5.8 on admission and has decreasing Hgb at times; he has required a total of 6 units pRBC. His last transfusion was on 07/18 and Hgb has been stable since that time running in the 7-8 range. Suspected source of anemia this admission is from posterior left calf hematoma. Additional concern for GI component given reported episode of melena prior to presentation and positive fecal occult blood test but no further testing required per GI. Hgb stable recently in the 8 range. Continue to monitor H&H closely since Coumadin to be resumed. (3) Occult blood in stools: Code(s): R19.5 - Other fecal abnormalities Status: Acute Assessment and Plan: Reports of melena prior to presentation. Fecal occult blood test positive on 07/16/2020. Gastroenterology is following and input is appreciated. EGD was being considered but left leg hematoma appears to be more acute source of blood loss. Continue Protonix daily. Per GI, no further testing required. (4) Aortic valve replaced: Code(s): Z95.2 - Presence of prosthetic heart valve Status: Inactive Assessment and Plan: He is maintained on chronic warfarin for atrial fibrillation and for a mechanical aortic valve. INR goal is 2.0-3.0. INR was 3.4 at presentation. He received 1 unit FFP on 07/15 to bring down INR for procedure planning. Heparin drip resumed post procedure; Coumadin resumed with daily INRs. (5) Acute on chronic renal failure: Qualifiers: Acute renal failure type: unspecified Chronic kidney disease stage: stage 3 (moderate) Chronic kidney disease stage 3 subtype: stage 3b (GFR 30-44) Qualified Code(s): N17.9 - Acute kidney failure, unspecified; N18.32 - Chronic kidney disease, stage 3b Code(s): N17.9 - Acute kidney failure, unspecified; N18.9 - Chronic kidney disease, unspecified Status: Acute Assessment and Plan: Baseline creatinine appears to be variable, around 2.0. Creatinine upon presentation is 2.7. Suspect acute injury is multifactorial when considering diuresis, relative hypotension, and profound anemia. Renal US showed cortical thinning without hydronephrosis. [place] light chain with positive SPEP with M spike. Creatinine is 2.0 today. Continue to follow closely with the addition of ACEI. SIF and UIF ordered. Discussed with Nephrology. Will consult Oncology since this would be a good time for BM Bx if it is required. (6) CHF (congestive heart failure): Qualifiers: Heart failure chronicity: acute on chronic Heart failure type: unspecified Qualified Code(s): I50.9 - Heart failure, unspecified Code(s): I50.9 - Heart failure, unspecified Status: Chronic Assessment and Plan: Last echo in October 2019 showed reduced
[2020-07-30 18:35] LABS: Glucose Point of Care 144 (65-105)
[2020-07-30] MEDS: traZODone HCL 25 MG TABLET PO (20:58)
[2020-07-30] MEDS: MELATONIN 3 MG TABLET 6 MG PO (20:58)
[2020-07-30] MEDS: ATORVASTATIN 40 MG TABLET PO (20:58)
[2020-07-30 20:59] VITALS: PULSE 78
[2020-07-30 22:10] VITALS: BP 130/66; PULSE 78; RESP 16; TEMP 36.7; O2SAT 98
[2020-07-30 22:30] VITALS: O2SAT 98
[2020-07-31] VITALS (8 sets, daily range): BP systolic 130–136; BP diastolic 62–81; PULSE 63–91; RESP 13–20; TEMP 36–36.8; O2SAT 96–99
[2020-07-31 05:45] LABS: Hematocrit 26.8 % (42.0-52.0); Hemoglobin 8.6 g/dL (14.0-18.0); Mean Corpuscular HGB Conc 32.1 g/dl (32-36); Mean Corpuscular Hemoglobin 28.9 pg (26-34); Mean Corpuscular Volume 89.9 fl (80-100); Mean Platelet Volume 10.8 fl (7.4-10.4); Platelet Count Result 161 k/mm3 (150-375); Red Blood Count 2.98 M/mm3 (4.6-6.20); Red Cell Distribution Width 16.4 % (11.5-14.5); White Blood Count 7.5 K/mm3 (4.5-10.0)
[2020-07-31 05:54] LABS: INR 1.2; Prothrombin Time 15.6 Seconds (11.1-14.7)
[2020-07-31 05:56] LABS: Partial Thromboplastin Time 86.4 SECONDS (22.3-36.8)
[2020-07-31 06:04] LABS: Anion Gap 8 mmol/L (8-16); Blood Urea Nitrogen 41 mg/dL (9-20); Calcium 9.5 mg/dL (8.4-10.2); Carbon Dioxide 27 mmol/L (22-30); Chloride 102 mmol/L (98-107); Estimated CRCL calculation 30 ml/min; Estimated Glomerular Filt Rate 30; Glucose 123 mg/dL (75-110); Potassium 4.3 mmol/L (3.4-5.0); Sodium 137 mmol/L (137-145)
[2020-07-31] MEDS: HEPARIN SOD/D5W 100 UNITS/ML 25,000 UNITS/250 ML BAG 13 UNITS IV CONT ×2 (06:36→21:38)
[2020-07-31 07:52] LABS: Glucose Point of Care 117 (65-105)
--- NOTE | 2020-07-31 08:04 | PDONCCN ---
HPI - Date of Consult Date/Time: 07/31/20 08:04 Requesting Physician: Con Hicks MD Primary Care Provider: Leo Avery, - Consult Narrative Reason for consult: Anemia. Narrative: Alton Rock is a 74 year old male who was recently discharged from the hospital on May 29 with gross hematuria. Patient has history of chronic kidney stage 3 disease but he is not aware of that. Patient is also diabetic on long-term insulin. Patient is on Coumadin for atrial fibrillation. His hemoglobin on admission was 8.3. He also has a history of congestive heart failure he was sent to the [facility] due to bilateral lower extremity edema and multiple weeping areas to his legs with significant pain. 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 He has lost about 5 lb recently. He denies any neuropathy and bone pain. Patient has receive 6 units of blood since July 13 along with frozen plasma. Review of Systems - Review of Systems All systems reviewed & are unremarkable except as noted in HPI and bel - Neurologic Reports system reviewed and no additional complaints, except as documented, Reports hearing normal, Reports confusion, Reports weakness, Denies headache(s) [facility] Medical History: Medical History (Last Reviewed 07/17/20 @ 17:17 by Galileo Moreland CRNA) Acute on chronic blood loss anemia Acute on chronic renal failure Aortic insufficiency Atrial fibrillation BPH (benign prostatic hyperplasia) CHF (congestive heart failure) Chronic indwelling Ramirez catheter Coronary artery disease DM2 (diabetes mellitus, type 2) GI bleed Gout Gout Hyperlipidemia Hypertension Hypertension Leg ulcer Right thigh Melena Osteomyelitis Pneumonia Type 2 diabetes mellitus Urinary retention Surgical History: Surgical History (Last Updated 07/28/20 @ 17:59 by Hal Hicks MD) Aortic valve replaced Hx of CABG S/P CABG x 1 Family History: Family History (Last Reviewed 07/17/20 @ 17:17 by Galileo Moreland CRNA) Unknown Family history unknown Sibling Prostate carcinoma - Social History Social History: Social History (Last Reviewed 07/16/20 @ 12:16 by Joel Lamar MD) Gender Identity: Gender identity (if verbalized by the patient): Male Sexual Orientation: Sexual Orientation (if Verbalized by the Patient): Straight or Heterosexual Alcohol Use: Alcohol intake: never Substance Use: Substance use: never Substance use type: does not use Others: Spiritual care concerns: No Smoking Status: Smoking status: Never smoker Tobacco type: cigars Second hand tobacco smoke exposure: No Comments: Additional smoking assessment comments: OCCASIONAl CIGAR PER PT. LAST ONE MORE THAN 1 YR AGO Meds Home Medications Medication Instructions Recorded Confirmed Type multivitamin 1 tablet PO DAILY 05/26/20 07/12/20 History Arginaid 1 g PO BID #60 ea 05/29/20 07/12/20 Rx acetaminophen 1,000 mg PO Q6H PRN #60 tablet 05/29/20 07/12/20 Rx ascorbic acid (vitamin C) [Vitamin 500 mg PO BID #60 tablet 05/29/20 07/12/20 Rx C] atorvastatin 40 mg PO HS #30 tablet 05/29/20 07/12/20 Rx duloxetine 30 mg PO DAILY #30 cap 05/29/20 07/12/20 Rx finasteride 5 mg PO DAILY #30 tablet 05/29/20 07/12/20 Rx furosemide 40 mg PO DAILY #30 tablet 05/29/20 07/12/20 Rx magnesium hydroxide [Milk of 400 mg PO DAILY PRN #30 ml 05/29/20 07/12/20 Rx Magnesia] melatonin 6 mg PO HS #30 tablet 05/29/20 07/12/20 Rx pantoprazole 40 mg PO DAILY #30 tablet 05/29/20 07/12/20 Rx tamsulosin 0.4 mg PO DAILY #30 cap 05/29/20 07/12/20 Rx trazodone 25 mg PO HS #30 tablet 05/29/20 07/12/20 Rx warfarin 2.5 mg PO DAILY #30 tablet 05/29/20 07/12/20 Rx oxycodone 5 mg tablet 5 mg PO Q6H #120 tablet 06/22/20 07/12/20 Rx pregabalin 75 mg capsule 75 mg PO BID #60 cap
[2020-07-31] MEDS: polyethylene glycoL 3350 17 GM POWD.PACK PO (08:10)
[2020-07-31] MEDS: hydrOXYzine HCL 25 MG TABLET PO ×4 (08:10→20:20)
[2020-07-31] MEDS: PANTOPRAZOLE 40 MG TABLET PO ×2 (08:11→20:20)
[2020-07-31] MEDS: METOPROLOL TARTRATE 12.5 MG TABLET PO (08:11)
[2020-07-31] MEDS: TAMSULOSIN HCL 0.4 MG CAPSULE PO (08:11)
[2020-07-31] MEDS: FERROUS SULFATE 324 MG TABLET PO (08:12)
[2020-07-31] MEDS: DULoxetine HCL 30 MG CAPSULE.DR PO (08:12)
[2020-07-31] MEDS: FINASTERIDE 5 MG TABLET PO (08:12)
[2020-07-31] MEDS: MULTIVITAMINS THERAPEUTIC TAB (*BKC) 1 TABLET PO (08:12)
[2020-07-31] MEDS: MAGNESIUM OXIDE 400 MG TABLET PO (08:12)
[2020-07-31] MEDS: ASCORBIC ACID 500 MG TABLET PO ×2 (08:12→18:07)
[2020-07-31] MEDS: FUROSEMIDE 40 MG TABLET PO ×2 (08:12→18:07)
[2020-07-31] MEDS: lisinopriL 5 MG TABLET PO (08:12)
[2020-07-31] MEDS: EUCERIN CREAM 120 GM JAR 1 APPLIC TOPICAL ×2 (08:13→18:09)
[2020-07-31] MEDS: SILVERGEL (ELTA) 45 ML 1 APPLIC TOPICAL (08:14)
[2020-07-31] MEDS: PREGABALIN (*CRX) 75 MG CAPSULE PO ×2 (08:15→18:08)
--- NOTE | 2020-07-31 10:28 | WPDMODSED ---
Moderate Sedation Note-Pt Data Patient Data Allergies Allergy/AdvReac Type Severity Reaction Status Date / Time zolpidem Allergy Unknown Verified 07/12/20 17:37 gabapentin AdvReac Shakiness Verified 07/12/20 17:37 Home Medications Medication Instructions Recorded Confirmed Type multivitamin 1 tablet PO DAILY 05/26/20 07/12/20 History Arginaid 1 g PO BID #60 ea 05/29/20 07/12/20 Rx acetaminophen 1,000 mg PO Q6H PRN #60 tablet 05/29/20 07/12/20 Rx ascorbic acid (vitamin C) [Vitamin 500 mg PO BID #60 tablet 05/29/20 07/12/20 Rx C] atorvastatin 40 mg PO HS #30 tablet 05/29/20 07/12/20 Rx duloxetine 30 mg PO DAILY #30 cap 05/29/20 07/12/20 Rx finasteride 5 mg PO DAILY #30 tablet 05/29/20 07/12/20 Rx furosemide 40 mg PO DAILY #30 tablet 05/29/20 07/12/20 Rx magnesium hydroxide [Milk of 400 mg PO DAILY PRN #30 ml 05/29/20 07/12/20 Rx Magnesia] melatonin 6 mg PO HS #30 tablet 05/29/20 07/12/20 Rx pantoprazole 40 mg PO DAILY #30 tablet 05/29/20 07/12/20 Rx tamsulosin 0.4 mg PO DAILY #30 cap 05/29/20 07/12/20 Rx trazodone 25 mg PO HS #30 tablet 05/29/20 07/12/20 Rx warfarin 2.5 mg PO DAILY #30 tablet 05/29/20 07/12/20 Rx oxycodone 5 mg tablet 5 mg PO Q6H #120 tablet 06/22/20 07/12/20 Rx pregabalin 75 mg capsule 75 mg PO BID #60 cap 07/04/20 07/12/20 Rx Citroma 296 ml PO DAILY PRN 07/12/20 07/12/20 History Miralax 17 g PO DAILY 07/12/20 07/12/20 History bisacodyl 10 mg RECTAL DAILY PRN 07/12/20 07/12/20 History cyclobenzaprine 5 mg PO TID PRN 07/12/20 07/12/20 History ferrous sulfate 325 mg PO DAILY@0800 07/12/20 07/12/20 History hydroxyzine HCl 25 mg PO QID 07/12/20 07/12/20 History metoprolol tartrate 12.5 mg PO Q12HR 07/12/20 07/12/20 History oxycodone 10 mg PO Q4H PRN 07/12/20 07/12/20 History sennosides [Senna Lax] 8.6 mg PO HS 07/12/20 07/12/20 History sodium phosphates [Fleet Enema] 118 ml RECTAL DAILY PRN 07/12/20 07/12/20 History Current Medications: Active Medications Acetaminophen (Acetaminophen 500 Mg Tablet) 500 mg PO Q6H PRN PRN Reason: Mild Pain (1-3) or Fever Hydrocodone Bitart/Acetaminophen (Hydrocodone/Acetaminophen (*Crx) 5-325 Mg Tablet) 1 tab PO Q4H PRN PRN Reason: Pain Rated 4-6 Stop: 08/06/20 11:52 Last Admin: 07/27/20 21:04 Dose: 1 tab Documented by: Ascorbic Acid (Ascorbic Acid 500 Mg Tablet) 500 mg PO BID [facility] Last Admin: 07/31/20 08:12 Dose: 500 mg Documented by: Atorvastatin Calcium (Atorvastatin 40 Mg Tablet) 40 mg PO [facility] Last Admin: 07/30/20 20:58 Dose: 40 mg Documented by: Bisacodyl (Bisacodyl 10 Mg Suppository) 10 mg RECTAL DAILY PRN PRN Reason: Constipation Clotrimazole (Betamethasone/Clotrimazole Cr 15 Gm Tube) 1 applic TOPICAL Q12HR [facility] Last Admin: 07/19/20 22:47 Dose: Not Given Documented by: Cyclobenzaprine HCl (Cyclobenzaprine Hcl 5 Mg Tablet) 5 mg PO TID PRN PRN Reason: Muscle Spasm Dextrose (Dextrose 50% 25 Gm/50 Ml Syringe) 12.5 gm IV PUSH PRN PRN; Protocol PRN Reason: Hypoglycemia Duloxetine HCl (Duloxetine Hcl 30 Mg Capsule.Dr) 30 mg PO DAILY [facility] Last Admin: 07/31/20 08:12 Dose: 30 mg Documented by: Epoetin Zaid-epbx (Epoetin Zaid-Epbx 10,000 Units/Ml Vial) 10,000 units SUB-Q MOWEFR [facility] Last Admin: 07/28/20 14:48 Dose: 10,000 units Documented by: Ferrous Sulfate (Ferrous Sulfate 324 Mg Tablet) 324 mg PO DAILY@0800 [facility] Last Admin: 07/31/20 08:12 Dose: 324 mg Documented by: Finasteride (Finasteride 5 Mg Tablet) 5 mg PO DAILY [facility] Last Admin: 07/31/20 08:12 Dose: 5 mg Documented by: Furosemide (Furosemide 40 Mg Tablet) 40 mg PO BID [facility] Last Admin: 07/31/20 08:12 Dose: 40 mg Documented by: Glucagon (Glucagon For Inj 1 Mg Vial) 1 mg IM PRN PRN; Protocol PRN Reason: Hypoglycemia Glucose (Glucose Oral Gel 15 Gm Of Glucse In 37.5 Gm Tube) 15 gm PO PRN PRN; Protocol PRN Reason: Hypoglycemia Heparin Sodium (Porcine) (Heparin Sodium 5,000 Units/Ml Vial) 7,000 units IV PUSH PRN PRN PRN Reason: aPTT less than 55 seconds Heparin Sodium (Po
--- NOTE | 2020-07-31 11:30 | PC.NURSE ---
Heparin drip on hold while patient to center for biopsy.
--- NOTE | 2020-07-31 11:30 | PC.NURSE ---
To GI Lab per center, IV intact. Report given to BEATRIZ Diane .
--- NOTE | 2020-07-31 13:05 | PC.NURSE ---
Returned from center. Report received from BEATRIZ Hernandez.
[2020-07-31 14:18] LABS: Glucose Point of Care 105 (65-105)
[2020-07-31] MEDS: EPOETIN ALFA-EPBX 10,000 UNITS/ML VIAL 10000 UNITS SUB-Q (15:07)
[2020-07-31 16:57] LABS: Glucose Point of Care 182 (65-105)
--- NOTE | 2020-07-31 17:58 | PM.IMPN ---
Progress Note: A&P Assessment and Plan (1) Hematoma of left lower extremity: Qualifiers: Encounter type: initial encounter Qualified Code(s): S80.12XA - Contusion of left lower leg, initial encounter Code(s): S80.12XA - Contusion of left lower leg, initial encounter Status: Resolved Assessment and Plan: He has a large, dark purple hematoma of left posterior calf. Related to recent trauma from a fall just prior to admission. The area was exquisitely tender and leg was edematous. This is likely source for anemia. Left lower extremity CT demonstrates large subcutaneous hematoma. General surgery was consulted and patient now s/p debridement of left calf hematoma on 07/18/20. Patient tolerated the procedure well. Plastic surgery consulted and patient now s/p skin grafting 07/27. Needs bedrest for 5 days. Plan for SNF placement at discharge. (2) Acute blood loss anemia: Code(s): D62 - Acute posthemorrhagic anemia Status: Acute Assessment and Plan: Acute on chronic normocytic anemia. He was recently hospitalized in May 2020 for gross heamturia and underwent blood transfusion at that time. Hemoglobin 5.8 on admission and has required a total of 6 units pRBC since. His last transfusion was on 07/18. Suspected source of anemia this admission is from posterior left calf hematoma. Additional concern for GI component given reported episode of melena prior to presentation and positive fecal occult blood test but no further testing required per GI. Hgb stable recently in the 8 range. Continue to monitor H&H closely since Coumadin resumed. (3) Occult blood in stools: Code(s): R19.5 - Other fecal abnormalities Status: Acute Assessment and Plan: Reports of melena prior to presentation. Fecal occult blood test positive on 07/16/2020. Gastroenterology is following and input is appreciated. EGD was being considered but left leg hematoma appears to be more acute source of blood loss. Continue Protonix daily. Per GI, no further testing required. (4) Aortic valve replaced: Code(s): Z95.2 - Presence of prosthetic heart valve Status: Inactive Assessment and Plan: He is maintained on chronic warfarin for atrial fibrillation and for a mechanical aortic valve. INR goal is 2.0-3.0. INR was 3.4 at presentation. He received 1 unit FFP on 07/15 to bring down INR for procedure planning. Heparin drip resumed post skin grafting procedure; Coumadin resumed with daily INRs. INR 1.2 so will give extra coumadin today. (5) Acute on chronic renal failure: Qualifiers: Acute renal failure type: unspecified Chronic kidney disease stage: stage 3 (moderate) Chronic kidney disease stage 3 subtype: stage 3b (GFR 30-44) Qualified Code(s): N17.9 - Acute kidney failure, unspecified; N18.32 - Chronic kidney disease, stage 3b Code(s): N17.9 - Acute kidney failure, unspecified; N18.9 - Chronic kidney disease, unspecified Status: Acute Assessment and Plan: Baseline creatinine appears to be variable around 2.0 but stable. Creatinine upon presentation is 2.7. Suspect acute injury is multifactorial when considering diuresis, relative hypotension, and profound anemia. Renal US showed cortical thinning without hydronephrosis. [place]>Eamon light chain with positive SPEP with M spike. Concern for MGUS vs MM. BM Bx performed today. Continue to follow closely with the addition of ACEI. SIF and UIF pending. Appreciate Oncology and nephrology input. (6) CHF (congestive heart failure): Qualifiers: Heart failure chronicity: acute on chronic Heart failure type: unspecified Qualified Code(s): I50.9 - Heart failure, unspecified Code(s): I50.9 - Heart failure, unspecified Status: Chronic Assessment and Plan: Last echo in October 2019 showed reduced EF of 30-35%. BNP was elevated at 6060 but he appeared euvolemic so doubt e
[2020-07-31] MEDS: WARFARIN (*PBKC) 2.5 MG TABLET PO ×2 (18:09→18:10)
[2020-07-31] MEDS: traZODone HCL 25 MG TABLET PO (20:20)
[2020-07-31] MEDS: MELATONIN 3 MG TABLET 6 MG PO (20:20)
[2020-07-31] MEDS: ATORVASTATIN 40 MG TABLET PO (20:20)
[2020-07-31] MEDS: HYDROcodone/acetaminophen (*CRX) 5-325 MG TABLET 1 TAB PO (21:17)
[2020-07-31 23:41] LABS: Glucose Point of Care 136 (65-105)
[2020-08-01 04:43] VITALS: BP 121/72; PULSE 73; RESP 20; TEMP 36.4; O2SAT 99
[2020-08-01 05:43] LABS: INR 1.3; Prothrombin Time 16.7 Seconds (11.1-14.7)
[2020-08-01 05:44] LABS: Partial Thromboplastin Time 81.8 SECONDS (22.3-36.8)
[2020-08-01 07:55] LABS: Glucose Point of Care 122 (65-105)
--- NOTE | 2020-08-01 08:28 | PM.PNNEP ---
Progress Note: A&P Assessment and Plan (1) ANDRADE (acute kidney injury): Code(s): N17.9 - Acute kidney failure, unspecified Status: Acute Assessment and Plan: resolved (2) Chronic kidney disease, stage IV (severe): Code(s): N18.4 - Chronic kidney disease, stage 4 (severe) Status: Chronic Assessment and Plan: due to chronic diuretics, diabetes, age, and vascular disease baseline creatinine ~ 1.6 - 2.1mg/dl He is at baseline The patient does have a positive paraprotein. Bone marrow biopsy was done yesterday to evaluate for this. If it turns out that he has MGUS, then consider renal biopsy to complete workup of the kidney. This can be done as an outpatient. (3) Anemia: Code(s): D64.9 - Anemia, unspecified Status: Acute Assessment and Plan: due to a combination of previous hematuria, supratherapuetic INR, hematoma, low platelet count, and melena on Epogen while hospitalized Check a CBC tomorrow (4) Hematoma of left lower extremity: Qualifiers: Encounter type: initial encounter Qualified Code(s): S80.12XA - Contusion of left lower leg, initial encounter Code(s): S80.12XA - Contusion of left lower leg, initial encounter Status: Resolved Assessment and Plan: status/post incision and drainage as well as debridement with skin grafting General Surgery and Plastic Surgery following local wound care (5) Chronic venous insufficiency of lower extremity: Code(s): I87.2 - Venous insufficiency (chronic) (peripheral) Status: Chronic Assessment and Plan: wound care following pain control (6) CHF (congestive heart failure): Qualifiers: Heart failure chronicity: acute on chronic Heart failure type: unspecified Qualified Code(s): I50.9 - Heart failure, unspecified Code(s): I50.9 - Heart failure, unspecified Status: Chronic Assessment and Plan: on oral lasix at this time follow respiratory status started on low dose [id number] and tolerating Subjective Date/time seen: 08/01/20 08:28 Interval history: Patient feels okay today. No chest pain or shortness of breath. He had a bone marrow biopsy yesterday for his paraproteinemia workup. Review of Systems Cardiovascular: Cardiovascular: Reports no additional cardiovascular complaints Respiratory: Respiratory: Reports no additional respiratory complaints Gastrointestinal: Gastrointestinal: Reports no additional gastrointestinal complaints Genitourinary: Genitourinary: Reports no additional male genitourinary complaints Exam Narrative: Exam Narrative: General: Elderly male in NAD Heart: normal S1 and S2; no rub Lungs: clear bilaterally Abdomen: soft, nontender, nondistended, positive bowel sounds Extremities: trace - 1+ edema Skin: chronic venous stasis + multiple wounds Objective Data Vital Signs Vital Signs: Vital Signs - 24 hr 07/31/20 12:30 07/31/20 12:45 07/31/20 14:00 Temperature 36.4 C L Pulse Rate 63 66 67 Respiratory Rate 13 15 18 Blood Pressure 135/70 131/73 134/62 Pulse Oximetry 96 97 99 07/31/20 20:00 07/31/20 20:22 07/31/20 20:38 Temperature 36.8 C Pulse Rate 80 63 80 Respiratory Rate 20 20 Blood Pressure 136/81 Pulse Oximetry 96 96 08/01/20 04:43 Temperature 36.4 C Pulse Rate 73 Respiratory Rate 20 Blood Pressure 121/72 Pulse Oximetry 99 Intake/Output Intake/Output: Intake & Output 07/29/20 07/30/20 07/31/20 08/01/20 23:59 23:59 23:59 23:59 Intake Total 2009 2862 2290 390 Output Total 0 3150 3200 1700 Balance 110 -288 -910 -1310 Meds/Results Medications: Active Medications Generic Name Dose Route Start Last Admin Trade Name Freq PRN Reason Stop Dose Admin Acetaminophen 500 mg 07/18/20 11:51 Acetaminophen 500 Mg Tablet PO Q6H PRN Mild Pain (1-3) or Fever Hydrocodone Bitart/Acetaminophen 1 tab 07/18/20 11:51 07/31/20 21:17
[2020-08-01 08:43] VITALS: PULSE 73
[2020-08-01] MEDS: METOPROLOL TARTRATE 12.5 MG TABLET PO ×2 (08:43→20:56)
[2020-08-01] MEDS: ASCORBIC ACID 500 MG TABLET PO ×2 (08:43→17:12)
[2020-08-01] MEDS: MULTIVITAMINS THERAPEUTIC TAB (*BKC) 1 TABLET PO (08:43)
[2020-08-01] MEDS: TAMSULOSIN HCL 0.4 MG CAPSULE PO (08:43)
[2020-08-01] MEDS: PREGABALIN (*CRX) 75 MG CAPSULE PO ×2 (08:43→17:12)
[2020-08-01] MEDS: FINASTERIDE 5 MG TABLET PO (08:43)
[2020-08-01] MEDS: DULoxetine HCL 30 MG CAPSULE.DR PO (08:43)
[2020-08-01] MEDS: PANTOPRAZOLE 40 MG TABLET PO ×2 (08:43→20:56)
[2020-08-01] MEDS: FERROUS SULFATE 324 MG TABLET PO (08:43)
[2020-08-01] MEDS: FUROSEMIDE 40 MG TABLET PO ×2 (08:43→17:12)
[2020-08-01] MEDS: MAGNESIUM OXIDE 400 MG TABLET PO (08:43)
[2020-08-01] MEDS: polyethylene glycoL 3350 17 GM POWD.PACK PO (08:43)
[2020-08-01] MEDS: lisinopriL 5 MG TABLET PO (08:43)
[2020-08-01] MEDS: hydrOXYzine HCL 25 MG TABLET PO ×4 (08:43→20:56)
[2020-08-01] MEDS: EUCERIN CREAM 120 GM JAR 1 APPLIC TOPICAL ×2 (08:44→17:12)
[2020-08-01] MEDS: SILVERGEL (ELTA) 45 ML 1 APPLIC TOPICAL (08:44)
--- NOTE | 2020-08-01 09:46 | WPDPN ---
Progress Note: A&P Assessment and Plan (1) Open wound of left lower extremity: Code(s): S81.802A - Unspecified open wound, left lower leg, initial encounter Status: Acute Assessment and Plan: Doing well after debridement / STSG left lower extremity. 100% take of the graft. Will do dressing changes 2 times daily. Encourage nonweightbearing left lower extremity. From my perspective may be discharged home when okay with other services. I would see him in 1 week. (2) Hematoma of left lower extremity: Qualifiers: Encounter type: initial encounter Qualified Code(s): S80.12XA - Contusion of left lower leg, initial encounter Code(s): S80.12XA - Contusion of left lower leg, initial encounter Status: Resolved Review of Systems Review of Systems: All systems reviewed & are unremarkable except as noted in HPI and below Exam Narrative: Exam Narrative: Left lower extremity dressing removed. He has 100% take of the skin graft. No signs of infection. No hematoma. No seroma. Objective Data Vital Signs Vital Signs: Vital Signs - 24 hr 07/31/20 12:30 07/31/20 12:45 07/31/20 14:00 Temperature 36.4 C L Pulse Rate 63 66 67 Respiratory Rate 13 15 18 Blood Pressure 135/70 131/73 134/62 Pulse Oximetry 96 97 99 07/31/20 20:00 07/31/20 20:22 07/31/20 20:38 Temperature 36.8 C Pulse Rate 80 63 80 Respiratory Rate 20 20 Blood Pressure 136/81 Pulse Oximetry 96 96 08/01/20 04:43 08/01/20 08:43 Temperature 36.4 C Pulse Rate 73 73 Respiratory Rate 20 Blood Pressure 121/72 Pulse Oximetry 99 Intake/Output Intake/Output: Intake & Output 07/29/20 07/30/20 07/31/20 08/01/20 23:59 23:59 23:59 23:59 Intake Total 20092 2290 390 Output Total 7190 3150 3200 1700 Balance 787 -963 -918 -1525 Meds/Results Medications: Active Medications Generic Name Dose Route Start Last Admin Trade Name Freq PRN Reason Stop Dose Admin Acetaminophen 500 mg 07/18/20 11:51 Acetaminophen 500 Mg Tablet PO Q6H PRN Mild Pain (1-3) or Fever Hydrocodone Bitart/Acetaminophen 1 tab 07/18/20 11:51 07/31/20 21:17 Hydrocodone/Acetaminophen (*Crx) 5-325 Mg Tablet PO 08/06/20 11:52 1 tab Q4H PRN Administration Pain Rated 4-6 Ascorbic Acid 500 mg 07/13/20 09:00 08/01/20 08:43 Ascorbic Acid 500 Mg Tablet PO 500 mg BID MARY Administration Atorvastatin Calcium 40 mg 07/12/20 21:10 07/31/20 20:20 Atorvastatin 40 Mg Tablet PO 40 mg HS MARY Administration Bisacodyl 10 mg 07/12/20 20:58 Bisacodyl 10 Mg Suppository RECTAL DAILY PRN Constipation Clotrimazole 1 applic 07/13/20 11:00 07/19/20 22:47 Betamethasone/Clotrimazole Cr 15 Gm Tube TOPICAL Not Given Q12HR [facility] Cyclobenzaprine HCl 5 mg 07/12/20 20:58 Cyclobenzaprine Hcl 5 Mg Tablet PO TID PRN Muscle Spasm Dextrose 12.5 gm 07/12/20 21:00 Dextrose 50% 25 Gm/50 Ml Syringe IV PUSH PRN PRN Hypoglycemia Protocol Duloxetine HCl 30 mg 07/13/20 09:00 08/01/20 08:43 Duloxetine Hcl 30 Mg Capsule.Dr PO 30 mg DAILY MARY Administration Epoetin Zaid-epbx 10,000 units 07/19/20 14:15 07/31/20 15:07 Epoetin Zaid-Epbx 10,000 Units/Ml Vial SUB-Q 10,000 units MOWEFR [facility] Administration Ferrous Sulfate 324 mg 07/13/20 08:00 08/01/20 08:43 Ferrous Sulfate 324 Mg Tablet PO 324 mg DAILY@0800 MARY Administration Finasteride 5 mg 07/13/20 09:00 08/01/20 08:43 Finasteride 5 Mg Tablet PO 5 mg DAILY MARY Administration Furosemide 40 mg 07/23/20 11:17 08/01/20 08:43 Furosemide 40 Mg Tablet PO 40 mg BID MARY Administration Glucagon 1 mg 07/12/20 21:00 Glucagon For Inj 1 Mg Vial IM PRN PRN Hypoglycemia Protocol Glucose 15 gm 07/12/20 21:00 Glucose Oral Gel 15 Gm Of Glucse In 37.5 Gm Tube PO PRN PRN Hypoglycemia Protocol Heparin Sodium (Porcine) 7,000 units 04
[2020-08-01 11:12] LABS: Partial Thromboplastin Time 71.5 SECONDS (22.3-36.8)
[2020-08-01 12:46] LABS: Glucose Point of Care 118 (65-105)
[2020-08-01] MEDS: HEPARIN SOD/D5W 100 UNITS/ML 25,000 UNITS/250 ML BAG 13 UNITS IV CONT (13:29)
--- NOTE | 2020-08-01 13:59 | PM.IMPN ---
Progress Note: A&P Assessment and Plan (1) Hematoma of left lower extremity: Qualifiers: Encounter type: initial encounter Qualified Code(s): S80.12XA - Contusion of left lower leg, initial encounter Code(s): S80.12XA - Contusion of left lower leg, initial encounter Status: Resolved Assessment and Plan: He has a large, dark purple hematoma of left posterior calf. Related to recent trauma from a fall just prior to admission. The area was exquisitely tender and leg was edematous. This is likely source for anemia. Left lower extremity CT demonstrates large subcutaneous hematoma. General surgery was consulted and patient now s/p debridement of left calf hematoma on 07/18/20. Patient tolerated the procedure well. Plastic surgery consulted and patient now s/p skin grafting 07/27. Needs bedrest for 5 days. Plan for SNF placement at discharge. (2) Acute blood loss anemia: Code(s): D62 - Acute posthemorrhagic anemia Status: Acute Assessment and Plan: Acute on chronic normocytic anemia. He was recently hospitalized in May 2020 for gross heamturia and underwent blood transfusion at that time. Hemoglobin 5.8 on admission and has required a total of 6 units pRBC since. His last transfusion was on 07/18. Suspected source of anemia this admission is from posterior left calf hematoma. Additional concern for GI component given reported episode of melena prior to presentation and positive fecal occult blood test but no further testing required per GI. Hgb stable recently in the 8 range. Continue to monitor H&H closely since Coumadin resumed. (3) Occult blood in stools: Code(s): R19.5 - Other fecal abnormalities Status: Acute Assessment and Plan: Reports of melena prior to presentation. Fecal occult blood test positive on 07/16/2020. Gastroenterology is following and input is appreciated. EGD was being considered but left leg hematoma appears to be more acute source of blood loss. Continue Protonix daily. Per GI, no further testing required. (4) Aortic valve replaced: Code(s): Z95.2 - Presence of prosthetic heart valve Status: Inactive Assessment and Plan: He is maintained on chronic warfarin for atrial fibrillation and for a mechanical aortic valve. INR goal is 2.0-3.0. INR was 3.4 at presentation. He received 1 unit FFP on 07/15 to bring down INR for procedure planning. Heparin drip resumed post skin grafting procedure; Coumadin resumed with daily INRs. IINR 1.3. contineu coumadin tonight. check inr in am. (5) Acute on chronic renal failure: Qualifiers: Acute renal failure type: unspecified Chronic kidney disease stage: stage 3 (moderate) Chronic kidney disease stage 3 subtype: stage 3b (GFR 30-44) Qualified Code(s): N17.9 - Acute kidney failure, unspecified; N18.32 - Chronic kidney disease, stage 3b Code(s): N17.9 - Acute kidney failure, unspecified; N18.9 - Chronic kidney disease, unspecified Status: Acute Assessment and Plan: Baseline creatinine appears to be variable around 2.0 but stable. Creatinine upon presentation is 2.7. Suspect acute injury is multifactorial when considering diuresis, relative hypotension, and profound anemia. Renal US showed cortical thinning without hydronephrosis. [place]>Eamon light chain with positive SPEP with M spike. Concern for MGUS vs MM. BM Bx performed 07/31. urine immunofixation negative. oncology consulted. Continue to follow closely with the addition of ACEI. SIF and UIF pending. Appreciate Oncology and nephrology input. (6) CHF (congestive heart failure): Qualifiers: Heart failure chronicity: acute on chronic Heart failure type: unspecified Qualified Code(s): I50.9 - Heart failure, unspecified Code(s): I50.9 - Heart failure, unspecified Status: Chronic Assessment and Plan: Last echo in October 2019 showed reduced EF of 30-35%. B
[2020-08-01 14:00] VITALS: BP 103/58; PULSE 77; RESP 16; TEMP 36.2; O2SAT 98
[2020-08-01 17:06] LABS: Glucose Point of Care 163 (65-105)
[2020-08-01] MEDS: WARFARIN (*PBKC) 2.5 MG TABLET PO (17:12)
[2020-08-01] MEDS: HYDROcodone/acetaminophen (*CRX) 5-325 MG TABLET 1 TAB PO (19:57)
[2020-08-01 20:00] VITALS: PULSE 74; RESP 22; O2SAT 96
[2020-08-01 20:36] VITALS: BP 125/60; PULSE 77; RESP 22; TEMP 36.7; O2SAT 96
[2020-08-01 20:56] VITALS: PULSE 74
[2020-08-01] MEDS: SENNOSIDES 8.6 MG TABLET 17.2 MG PO (20:56)
[2020-08-01] MEDS: traZODone HCL 25 MG TABLET PO (20:56)
[2020-08-01] MEDS: MELATONIN 3 MG TABLET 6 MG PO (20:56)
[2020-08-01] MEDS: ATORVASTATIN 40 MG TABLET PO (20:56)
[2020-08-01 21:10] LABS: Glucose Point of Care 229 (65-105)
[2020-08-02] VITALS (8 sets, daily range): BP systolic 104–116; BP diastolic 48–57; PULSE 59–75; RESP 16–20; TEMP 36.2–36.6; O2SAT 96–99
[2020-08-02 05:49] LABS: Hematocrit 26.2 % (42.0-52.0); Hemoglobin 8.3 g/dL (14.0-18.0); Mean Corpuscular HGB Conc 31.7 g/dl (32-36); Mean Corpuscular Hemoglobin 28.2 pg (26-34); Mean Corpuscular Volume 89.1 fl (80-100); Mean Platelet Volume 11.1 fl (7.4-10.4); Platelet Count Result 155 k/mm3 (150-375); Red Blood Count 2.94 M/mm3 (4.6-6.20); White Blood Count 8.2 K/mm3 (4.5-10.0)
[2020-08-02 05:56] LABS: INR 1.4; Prothrombin Time 17.6 Seconds (11.1-14.7)
[2020-08-02 05:58] LABS: Partial Thromboplastin Time 73.3 SECONDS (22.3-36.8)
[2020-08-02 06:04] LABS: Albumin Level 3.6 g/dL (3.5-5.1); Anion Gap 4 mmol/L (8-16); Blood Urea Nitrogen 54 mg/dL (9-20); Calcium 8.7 mg/dL (8.4-10.2); Carbon Dioxide 27 mmol/L (22-30); Chloride 102 mmol/L (98-107); Estimated CRCL calculation 29 ml/min; Estimated Glomerular Filt Rate 30; Glucose 143 mg/dL (75-110); Phosphorus 3.9 mg/dL (2.5-4.5); Potassium 4.4 mmol/L (3.4-5.0); Sodium 133 mmol/L (137-145)
[2020-08-02 08:04] LABS: Glucose Point of Care 141 (65-105)
[2020-08-02] MEDS: FERROUS SULFATE 324 MG TABLET PO (08:23)
[2020-08-02] MEDS: FINASTERIDE 5 MG TABLET PO (08:24)
[2020-08-02] MEDS: DULoxetine HCL 30 MG CAPSULE.DR PO (08:24)
[2020-08-02] MEDS: ASCORBIC ACID 500 MG TABLET PO ×2 (08:24→17:01)
[2020-08-02] MEDS: FUROSEMIDE 40 MG TABLET PO ×2 (08:24→17:02)
[2020-08-02] MEDS: hydrOXYzine HCL 25 MG TABLET PO ×4 (08:24→20:33)
[2020-08-02] MEDS: MAGNESIUM OXIDE 400 MG TABLET PO (08:25)
[2020-08-02] MEDS: MULTIVITAMINS THERAPEUTIC TAB (*BKC) 1 TABLET PO (08:25)
[2020-08-02] MEDS: lisinopriL 5 MG TABLET PO (08:25)
[2020-08-02] MEDS: PANTOPRAZOLE 40 MG TABLET PO ×2 (08:25→20:35)
[2020-08-02] MEDS: METOPROLOL TARTRATE 12.5 MG TABLET PO (08:25)
[2020-08-02] MEDS: PREGABALIN (*CRX) 75 MG CAPSULE PO ×2 (08:26→17:02)
[2020-08-02] MEDS: polyethylene glycoL 3350 17 GM POWD.PACK PO (08:26)
[2020-08-02] MEDS: TAMSULOSIN HCL 0.4 MG CAPSULE PO (08:26)
[2020-08-02] MEDS: EUCERIN CREAM 120 GM JAR 1 APPLIC TOPICAL ×2 (08:31→17:04)
[2020-08-02] MEDS: SILVERGEL (ELTA) 45 ML 1 APPLIC TOPICAL (08:31)
[2020-08-02] MEDS: HEPARIN SOD/D5W 100 UNITS/ML 25,000 UNITS/250 ML BAG 13 UNITS IV CONT (08:34)
--- NOTE | 2020-08-02 12:33 | PM.IMPN ---
Progress Note: A&P Assessment and Plan (1) Hematoma of left lower extremity: Qualifiers: Encounter type: initial encounter Qualified Code(s): S80.12XA - Contusion of left lower leg, initial encounter Code(s): S80.12XA - Contusion of left lower leg, initial encounter Status: Resolved Assessment and Plan: He has a large, dark purple hematoma of left posterior calf. Related to recent trauma from a fall just prior to admission. The area was exquisitely tender and leg was edematous. This is likely source for anemia. Left lower extremity CT demonstrates large subcutaneous hematoma. General surgery was consulted and patient now s/p debridement of left calf hematoma on 07/18/20. Patient tolerated the procedure well. Plastic surgery consulted and patient now s/p skin grafting 07/27. Needs bedrest for 5 days. Plan for SNF placement at discharge. (2) Acute blood loss anemia: Code(s): D62 - Acute posthemorrhagic anemia Status: Acute Assessment and Plan: Acute on chronic normocytic anemia. He was recently hospitalized in May 2020 for gross heamturia and underwent blood transfusion at that time. Hemoglobin 5.8 on admission and has required a total of 6 units pRBC since. His last transfusion was on 07/18. Suspected source of anemia this admission is from posterior left calf hematoma. Additional concern for GI component given reported episode of melena prior to presentation and positive fecal occult blood test but no further testing required per GI. Hgb stable recently in the 8 range. Continue to monitor H&H closely since Coumadin resumed. INR at 1.4 (3) Occult blood in stools: Code(s): R19.5 - Other fecal abnormalities Status: Acute Assessment and Plan: Reports of melena prior to presentation. Fecal occult blood test positive on 07/16/2020. Gastroenterology is following and input is appreciated. EGD was being considered but left leg hematoma appears to be more acute source of blood loss. Continue Protonix daily. Per GI, no further testing required. (4) Aortic valve replaced: Code(s): Z95.2 - Presence of prosthetic heart valve Status: Inactive Assessment and Plan: He is maintained on chronic warfarin for atrial fibrillation and for a mechanical aortic valve. INR goal is 2.0-3.0. INR was 3.4 at presentation. He received 1 unit FFP on 07/15 to bring down INR for procedure planning. Heparin drip resumed post skin grafting procedure; Coumadin resumed with daily INRs. IINR 1.3. contineu coumadin tonight. check inr in am. willl increase coumadin to 3 mg tonight (5) Acute on chronic renal failure: Qualifiers: Acute renal failure type: unspecified Chronic kidney disease stage: stage 3 (moderate) Chronic kidney disease stage 3 subtype: stage 3b (GFR 30-44) Qualified Code(s): N17.9 - Acute kidney failure, unspecified; N18.32 - Chronic kidney disease, stage 3b Code(s): N17.9 - Acute kidney failure, unspecified; N18.9 - Chronic kidney disease, unspecified Status: Acute Assessment and Plan: Baseline creatinine appears to be variable around 2.0 but stable. Creatinine upon presentation is 2.7. Suspect acute injury is multifactorial when considering diuresis, relative hypotension, and profound anemia. Renal US showed cortical thinning without hydronephrosis. [place]>Eamon light chain with positive SPEP with M spike. Concern for MGUS vs MM. BM Bx performed 07/31. urine immunofixation negative. oncology consulted. Continue to follow closely with the addition of ACEI. SIF and UIF pending. Appreciate Oncology and nephrology input. (6) CHF (congestive heart failure): Qualifiers: Heart failure chronicity: acute on chronic Heart failure type: unspecified Qualified Code(s): I50.9 - Heart failure, unspecified Code(s): I50.9 - Heart failure, unspecified Status: Chronic Assessment and Plan: Last
[2020-08-02 13:04] LABS: Glucose Point of Care 137 (65-105)
[2020-08-02] MEDS: EPOETIN ALFA-EPBX 10,000 UNITS/ML VIAL 10000 UNITS SUB-Q (14:04)
--- NOTE | 2020-08-02 14:15 | PC.NURSE ---
On 08/02/20, the student, [Magalys Martin ], provided care and completed [facility] documentation on this patient. I have reviewed the student's documentation and agree with the findings.
[2020-08-02 16:49] LABS: Glucose Point of Care 105 (65-105)
[2020-08-02] MEDS: WARFARIN (*PBKC) 2.5 MG TABLET PO (17:01)
[2020-08-02] MEDS: WARFARIN (*PBKC) 0.5 MG TABLET PO (17:02)
[2020-08-02] MEDS: HYDROcodone/acetaminophen (*CRX) 5-325 MG TABLET 1 TAB PO (18:47)
[2020-08-02] MEDS: MELATONIN 3 MG TABLET 6 MG PO (20:34)
[2020-08-02] MEDS: ATORVASTATIN 40 MG TABLET PO (20:34)
[2020-08-02] MEDS: traZODone HCL 25 MG TABLET PO (20:35)
[2020-08-02] MEDS: SENNOSIDES 8.6 MG TABLET 17.2 MG PO (20:36)
[2020-08-02] MEDS: MORPHINE SULFATE (*CRX) 4 MG/ML INJ 1 MG IV PUSH (20:45)
[2020-08-03] VITALS (8 sets, daily range): BP systolic 90–116; BP diastolic 43–48; PULSE 62–81; RESP 16–20; TEMP 35.8–36.2; O2SAT 97–100
[2020-08-03] MEDS: HYDROcodone/acetaminophen (*CRX) 5-325 MG TABLET 1 TAB PO ×4 (00:32→21:07)
[2020-08-03] MEDS: MORPHINE SULFATE (*CRX) 4 MG/ML INJ 1 MG IV PUSH ×2 (00:43→10:59)
[2020-08-03 00:48] LABS: Glucose Point of Care 229 (65-105)
[2020-08-03] MEDS: HEPARIN SOD/D5W 100 UNITS/ML 25,000 UNITS/250 ML BAG 13 UNITS IV CONT (03:59)
[2020-08-03 06:13] LABS: INR 1.6; Prothrombin Time 19.7 Seconds (11.1-14.7)
[2020-08-03 06:20] LABS: Partial Thromboplastin Time 86.9 SECONDS (22.3-36.8)
[2020-08-03 08:02] LABS: Glucose Point of Care 142 (65-105)
[2020-08-03] MEDS: hydrOXYzine HCL 25 MG TABLET PO ×4 (09:11→20:57)
[2020-08-03] MEDS: PANTOPRAZOLE 40 MG TABLET PO ×2 (09:11→20:56)
[2020-08-03] MEDS: TAMSULOSIN HCL 0.4 MG CAPSULE PO (09:12)
[2020-08-03] MEDS: MULTIVITAMINS THERAPEUTIC TAB (*BKC) 1 TABLET PO (09:12)
[2020-08-03] MEDS: MAGNESIUM OXIDE 400 MG TABLET PO (09:12)
[2020-08-03] MEDS: ASCORBIC ACID 500 MG TABLET PO ×2 (09:12→17:42)
[2020-08-03] MEDS: DULoxetine HCL 30 MG CAPSULE.DR PO (09:12)
[2020-08-03] MEDS: PREGABALIN (*CRX) 75 MG CAPSULE PO ×2 (09:15→17:42)
[2020-08-03] MEDS: METOPROLOL TARTRATE 12.5 MG TABLET PO ×2 (09:15→20:57)
[2020-08-03] MEDS: polyethylene glycoL 3350 17 GM POWD.PACK PO (09:16)
[2020-08-03] MEDS: FERROUS SULFATE 324 MG TABLET PO (09:16)
[2020-08-03] MEDS: FINASTERIDE 5 MG TABLET PO (09:16)
[2020-08-03] MEDS: SILVERGEL (ELTA) 45 ML 1 APPLIC TOPICAL (09:21)
[2020-08-03] MEDS: EUCERIN CREAM 120 GM JAR 1 APPLIC TOPICAL ×2 (09:21→17:42)
--- NOTE | 2020-08-03 10:22 | PM.IMPN ---
Progress Note: A&P Assessment and Plan (1) Hematoma of left lower extremity: Qualifiers: Encounter type: initial encounter Qualified Code(s): S80.12XA - Contusion of left lower leg, initial encounter Code(s): S80.12XA - Contusion of left lower leg, initial encounter Status: Resolved Assessment and Plan: He has a large, dark purple hematoma of left posterior calf. Related to recent trauma from a fall just prior to admission. The area was exquisitely tender and leg was edematous. This is likely source for anemia. Left lower extremity CT demonstrates large subcutaneous hematoma. General surgery was consulted and patient now s/p debridement of left calf hematoma on 07/18/20. Patient tolerated the procedure well. Plastic surgery consulted and patient now s/p skin grafting 07/27. Needs bedrest for 5 days. Plan for SNF placement at discharge. (2) Acute blood loss anemia: Code(s): D62 - Acute posthemorrhagic anemia Status: Acute Assessment and Plan: Acute on chronic normocytic anemia. He was recently hospitalized in May 2020 for gross heamturia and underwent blood transfusion at that time. Hemoglobin 5.8 on admission and has required a total of 6 units pRBC since. His last transfusion was on 07/18. Suspected source of anemia this admission is from posterior left calf hematoma. Additional concern for GI component given reported episode of melena prior to presentation and positive fecal occult blood test but no further testing required per GI. Hgb stable recently in the 8 range. Continue to monitor H&H closely since Coumadin resumed. INR at 1.6. will give extra dose tonight (3) Occult blood in stools: Code(s): R19.5 - Other fecal abnormalities Status: Acute Assessment and Plan: Reports of melena prior to presentation. Fecal occult blood test positive on 07/16/2020. Gastroenterology is following and input is appreciated. EGD was being considered but left leg hematoma appears to be more acute source of blood loss. Continue Protonix daily. Per GI, no further testing required. (4) Aortic valve replaced: Code(s): Z95.2 - Presence of prosthetic heart valve Status: Inactive Assessment and Plan: He is maintained on chronic warfarin for atrial fibrillation and for a mechanical aortic valve. INR goal is 2.0-3.0. INR was 3.4 at presentation. He received 1 unit FFP on 07/15 to bring down INR for procedure planning. Heparin drip resumed post skin grafting procedure; Coumadin resumed with daily INRs. IINR 1.3. contineu coumadin tonight. check inr in am. coumadin to 3 mg tonight (5) Acute on chronic renal failure: Qualifiers: Acute renal failure type: unspecified Chronic kidney disease stage: stage 3 (moderate) Chronic kidney disease stage 3 subtype: stage 3b (GFR 30-44) Qualified Code(s): N17.9 - Acute kidney failure, unspecified; N18.32 - Chronic kidney disease, stage 3b Code(s): N17.9 - Acute kidney failure, unspecified; N18.9 - Chronic kidney disease, unspecified Status: Acute Assessment and Plan: Baseline creatinine appears to be variable around 2.0 but stable. Creatinine upon presentation is 2.7. Suspect acute injury is multifactorial when considering diuresis, relative hypotension, and profound anemia. Renal US showed cortical thinning without hydronephrosis. [place]>Eamon light chain with positive SPEP with M spike. Concern for MGUS vs MM. BM Bx performed 07/31. urine immunofixation negative. oncology consulted. Continue to follow closely with the addition of ACEI. SIF with IgG kappa monclonal band present and UIF negative. Appreciate Oncology and nephrology input. bone marrow biopsy performed 07/31. awaiting result. he will follow up with Dr. Nowak as op fernando for this. (6) CHF (congestive heart failure): Qualifiers: Heart failure chronicity: acute on chronic Heart failure type: unspecified Epifanio
[2020-08-03 11:30] LABS: Glucose Point of Care 133 (65-105)
--- NOTE | 2020-08-03 11:57 | PM.PNNEP ---
Progress Note: A&P Assessment and Plan (1) ANDRADE (acute kidney injury): Code(s): N17.9 - Acute kidney failure, unspecified Status: Acute Assessment and Plan: resolved (2) Chronic kidney disease, stage IV (severe): Code(s): N18.4 - Chronic kidney disease, stage 4 (severe) Status: Chronic Assessment and Plan: due to chronic diuretics, diabetes, age, and vascular disease baseline creatinine ~ 1.6 - 2.1mg/dl He is at baseline The patient does have a positive paraprotein. Bone marrow biopsy was done yesterday to evaluate for this. If it turns out that he has MGUS, then consider renal biopsy to complete workup of the kidney. This can be done as an outpatient. (3) Anemia: Code(s): D64.9 - Anemia, unspecified Status: Acute Assessment and Plan: due to a combination of previous hematuria, supratherapuetic INR, hematoma, low platelet count, and melena on Epogen while hospitalized hb stable in the 8s. (4) Hematoma of left lower extremity: Qualifiers: Encounter type: initial encounter Qualified Code(s): S80.12XA - Contusion of left lower leg, initial encounter Code(s): S80.12XA - Contusion of left lower leg, initial encounter Status: Resolved Assessment and Plan: status/post incision and drainage as well as debridement with skin grafting General Surgery and Plastic Surgery following local wound care (5) Chronic venous insufficiency of lower extremity: Code(s): I87.2 - Venous insufficiency (chronic) (peripheral) Status: Chronic Assessment and Plan: wound care following pain control (6) CHF (congestive heart failure): Qualifiers: Heart failure chronicity: acute on chronic Heart failure type: unspecified Qualified Code(s): I50.9 - Heart failure, unspecified Code(s): I50.9 - Heart failure, unspecified Status: Chronic Assessment and Plan: on oral lasix at this time follow respiratory status started on low dose VIELKA-I and tolerating Subjective Date/time seen: 08/03/20 11:57 Interval history: Patient feels okay today. No chest pain or shortness of breath. Some discomfort with his wounds. Review of Systems Cardiovascular: Cardiovascular: Reports no additional cardiovascular complaints Respiratory: Respiratory: Reports no additional respiratory complaints Gastrointestinal: Gastrointestinal: Reports no additional gastrointestinal complaints Genitourinary: Genitourinary: Reports no additional male genitourinary complaints Exam Narrative: Exam Narrative: General: Elderly male in NAD Heart: normal S1 and S2; no rub Lungs: clear Abdomen: soft, nontender, nondistended, positive bowel sounds Extremities: trace - 1+ edema Skin: chronic venous stasis + multiple wounds Objective Data Vital Signs Vital Signs: Vital Signs - 24 hr 08/02/20 13:59 08/02/20 14:00 08/02/20 20:00 Temperature 36.6 C 36.4 C Pulse Rate 64 64 63 Respiratory Rate 16 20 16 Blood Pressure 116/51 L 111/57 L Pulse Oximetry 99 99 96 08/02/20 20:34 08/02/20 20:40 08/03/20 06:00 Temperature 36.2 C L 36.1 C L Pulse Rate 63 63 62 Respiratory Rate 16 16 Blood Pressure 113/56 L 90/45 L Pulse Oximetry 96 97 08/03/20 08:30 08/03/20 09:15 Temperature Pulse Rate 66 66 Respiratory Rate Blood Pressure 100/43 L Pulse Oximetry Intake/Output Intake/Output: Intake & Output 07/31/20 08/01/20 08/02/20 08/03/20 23:59 23:59 23:59 23:59 Intake Total 2290 3590 1960 450 Output Total 3200 3500 1025 300 Balance -910 90 935 150 Meds/Results Medications: Active Medications Generic Name Dose Route Start Last Admin Trade Name Freq PRN Reason Stop Dose Admin Acetaminophen 500 mg 07/18/20 11:51 Acetaminophen 500 Mg Tablet PO Q6H PRN Mild Pain (1-3) or Fever Hydrocodone Bitart/Acetaminophen 1 tab 07/18/20 11:51 08/03/20 09:13 Hydrocodone/A
--- NOTE | 2020-08-03 12:07 | PM.EVENT ---
Event Note Event Note Event Note: I talked with Dr. Nowak today. The bone marrow shows a smoldering myeloma. He says that if he has kidney involvement of the myeloma that would be criteria for treatment. I talked with as well. The patient just started back on Coumadin. His INR is 1.6. Will hold the Coumadin and we can hold the heparin drip for 6 hours before the biopsy. I also talked with who says that the INR should be less than 1.5. So will see with the INR is tomorrow and decide what to do then. I talked with the patient. We discussed the process of the renal biopsy. We discussed the risks mainly of which is bleeding. There is 1% chance of requiring a blood transfusion and a 0.5-0.1% chance of someone have any go in and stop the bleeding. We reach patient understands the process risks benefits and alternatives and wishes to proceed.
--- NOTE | 2020-08-03 13:02 | P.PNONC_ITS ---
Progress Note: A/P - Additional Plan Multiple myeloma status post bone marrow biopsy. Bone marrow biopsy showed 20- 30% involvement of bone marrow with plasma cell dyscrasia. Cytogenetics are pending. No significant dyspoiesis. I have discussed this case with Dr. Westbrook. I have recommended to proceed with kidney biopsy to check for myeloma involvement of kidney. I will also order skeletal survey. Based on the kidney biopsy and skeletal survey will decide treatment plan. Normocytic anemia. Likely secondary to kidney disease and possibly secondary to myeloma. Patient is on Procrit. - Time Spent With Patient Total time spent is greater than 50% in coordination of care (as documented) at patient's floor/unit and/or counseling patient: 25 - 35 minutes Subjective Interval history: Multiple myeloma Normocytic anemia Acute renal insufficiency Review of Systems - Review of Systems Patient complain of lower back and leg pain. Denies any fevers and chills. No bleeding and bruising. No other new complaints. - Neurologic Reports system reviewed and no additional complaints, except as documented, Reports hearing normal, Reports confusion, Reports weakness, Denies headache(s) Exam Vital signs: Temp Pulse Resp BP Pulse Ox 36.1 C L 66 16 100/43 L 97 08/03/20 06:00 08/03/20 09:15 08/03/20 06:00 08/03/20 08:30 08/03/20 06:00 Narrative: Lungs are clear to auscultation bilaterally Cardiovascular regular rate rhythm no no murmurs Abdomen soft nontender nondistended bowel sounds are positive Extremities no edema PN: Objective Data - Labs CBC & Chem 7: 08/02/20 05:18 08/02/20 05:18 Labs: Laboratory Results - last 24 hr 08/02/20 08/02/20 08/02/20 13:01 16:41 20:32 PT INR APTT POC Capillary Glucose 137 H 105 229 H 08/03/20 08/03/20 08/03/20 05:11 05:11 07:59 PT 19.7 H INR 1.6 APTT 86.9 H POC Capillary Glucose 142 H 08/03/20 11:27 PT INR APTT POC Capillary Glucose 133 H
--- NOTE | 2020-08-03 13:58 | PC.NURSE ---
On 08/03/20, the student, [Herb Dill], provided care and completed [facility] documentation on this patient. I have reviewed the student's documentation and agree with the findings.
[2020-08-03] MEDS: INSULIN ASPART (*BKC) 100 UNITS/ML SUB-Q (17:41)
[2020-08-03] MEDS: FUROSEMIDE 40 MG TABLET PO (17:42)
[2020-08-03 17:49] LABS: Glucose Point of Care 206 (65-105)
[2020-08-03] MEDS: traZODone HCL 25 MG TABLET PO (20:56)
[2020-08-03] MEDS: ATORVASTATIN 40 MG TABLET PO (20:56)
[2020-08-03] MEDS: MELATONIN 3 MG TABLET 6 MG PO (20:56)
[2020-08-03] MEDS: SENNOSIDES 8.6 MG TABLET 17.2 MG PO (20:56)
--- NOTE | 2020-08-04 01:48 | PC.NURSE ---
Radhika Hart provided care and documentation for patient from 7 pm to 7:30 am, I have reviewed documentation and observed care given.
--- NOTE | 2020-08-04 02:30 | PC.NURSE ---
Heparin drip placed on hold per orders.
[2020-08-04 03:35] LABS: Glucose Point of Care 238 (65-105)
[2020-08-04 05:45] LABS: Hematocrit 26.7 % (42.0-52.0); Hemoglobin 8.4 g/dL (14.0-18.0); Immature Reticulocyte Fraction 29.6 % (3.0-15.9); Mean Corpuscular HGB Conc 31.5 g/dl (32-36); Mean Corpuscular Hemoglobin 29.1 pg (26-34); Mean Corpuscular Volume 92.4 fl (80-100); Mean Platelet Volume 11.8 fl (7.4-10.4); Platelet Count Result 145 k/mm3 (150-375); Red Blood Count 2.89 M/mm3 (4.6-6.20); Red Cell Distribution Width 17.2 % (11.5-14.5); Reticulocyte Hemoglobin Conten 28.2 pg (28.2-35.7); Reticulocyte Percent 4.23 % (0.7-4.3); Reticulocytes Absolute 0.12 B/L (32.2-175.7); White Blood Count 6.1 K/mm3 (4.5-10.0)
[2020-08-04 05:54] LABS: INR 1.8; Prothrombin Time 21.4 Seconds (11.1-14.7)
[2020-08-04 05:55] LABS: Partial Thromboplastin Time 45.4 SECONDS (22.3-36.8)
[2020-08-04 06:00] VITALS: BP 92/40; PULSE 90; RESP 16; TEMP 36.2; O2SAT 97
[2020-08-04 06:08] LABS: Albumin Level 3.2 g/dL (3.5-5.1); Anion Gap 10 mmol/L (8-16); Blood Urea Nitrogen 68 mg/dL (9-20); Calcium 8.6 mg/dL (8.4-10.2); Carbon Dioxide 23 mmol/L (22-30); Chloride 97 mmol/L (98-107); Estimated CRCL calculation 24 ml/min; Estimated Glomerular Filt Rate 23; Glucose 159 mg/dL (75-110); Phosphorus 5.3 mg/dL (2.5-4.5); Potassium 4.7 mmol/L (3.4-5.0); Sodium 130 mmol/L (137-145)
[2020-08-04 06:12] LABS: Glucose Point of Care 178 (65-105)
[2020-08-04 08:30] VITALS: BP 90/43; PULSE 70; RESP 14; TEMP 36.1; O2SAT 98
[2020-08-04] MEDS: ACETAMINOPHEN 500 MG TABLET PO (09:12)
[2020-08-04] MEDS: TAMSULOSIN HCL 0.4 MG CAPSULE PO (09:14)
[2020-08-04] MEDS: MAGNESIUM OXIDE 400 MG TABLET PO (09:14)
[2020-08-04] MEDS: MULTIVITAMINS THERAPEUTIC TAB (*BKC) 1 TABLET PO (09:15)
[2020-08-04] MEDS: FINASTERIDE 5 MG TABLET PO (09:15)
[2020-08-04] MEDS: PANTOPRAZOLE 40 MG TABLET PO ×2 (09:15→20:25)
[2020-08-04] MEDS: ASCORBIC ACID 500 MG TABLET PO ×2 (09:15→16:55)
[2020-08-04] MEDS: DULoxetine HCL 30 MG CAPSULE.DR PO (09:16)
[2020-08-04] MEDS: FERROUS SULFATE 324 MG TABLET PO (09:17)
[2020-08-04] MEDS: hydrOXYzine HCL 25 MG TABLET PO ×4 (09:17→20:25)
[2020-08-04 09:20] VITALS: PULSE 64
[2020-08-04] MEDS: EUCERIN CREAM 120 GM JAR 1 APPLIC TOPICAL ×2 (09:22→16:56)
[2020-08-04] MEDS: SILVERGEL (ELTA) 45 ML 1 APPLIC TOPICAL (09:22)
[2020-08-04] MEDS: polyethylene glycoL 3350 17 GM POWD.PACK PO (09:22)
[2020-08-04] MEDS: PREGABALIN (*CRX) 75 MG CAPSULE PO ×2 (09:25→16:55)
--- NOTE | 2020-08-04 09:30 | PC.NURSE ---
Dr. Nava on floor made aware of low blood pressure, MD reports to Hold, Lisinopril, and lasix this Am. MD requested screen writer to resume Heparin gtt at rate it previously was, and follow protocol. Sobia Youssef RN
[2020-08-04] MEDS: HEPARIN SOD/D5W 100 UNITS/ML 25,000 UNITS/250 ML BAG 13 UNITS IV CONT (09:49)
--- NOTE | 2020-08-04 10:53 | PCNWS ---
Weekly nutritional screen. Patient is tolerating current diet-DBCC with adequate intake-greater than 75% of meals. Plans for kidney biopsy. No nutritional needs at this time.
[2020-08-04 11:33] LABS: Glucose Point of Care 130 (65-105)
[2020-08-04 13:30] LABS: Glucose Point of Care 113 (65-105)
--- NOTE | 2020-08-04 13:39 | PM.IMPN ---
Progress Note: A&P Assessment and Plan (1) Hematoma of left lower extremity: Qualifiers: Encounter type: initial encounter Qualified Code(s): S80.12XA - Contusion of left lower leg, initial encounter Code(s): S80.12XA - Contusion of left lower leg, initial encounter Status: Resolved Assessment and Plan: He has a large, dark purple hematoma of left posterior calf. Related to recent trauma from a fall just prior to admission. The area was exquisitely tender and leg was edematous. This is likely source for anemia. Left lower extremity CT demonstrates large subcutaneous hematoma. General surgery was consulted and patient now s/p debridement of left calf hematoma on 07/18/20. Patient tolerated the procedure well. Plastic surgery consulted and patient now s/p skin grafting 07/27. Needs bedrest for 5 days. Plan for SNF placement at discharge. (2) Acute blood loss anemia: Code(s): D62 - Acute posthemorrhagic anemia Status: Acute Assessment and Plan: Acute on chronic normocytic anemia. He was recently hospitalized in May 2020 for gross heamturia and underwent blood transfusion at that time. Hemoglobin 5.8 on admission and has required a total of 6 units pRBC since. His last transfusion was on 07/18. Suspected source of anemia this admission is from posterior left calf hematoma. Additional concern for GI component given reported episode of melena prior to presentation and positive fecal occult blood test but no further testing required per GI. Hgb stable recently in the 8 range. Continue to monitor H&H closely since Coumadin resumed. INR at 1.8 currently coumadin i nhold for planned biopsy of kidney (3) Occult blood in stools: Code(s): R19.5 - Other fecal abnormalities Status: Acute Assessment and Plan: Reports of melena prior to presentation. Fecal occult blood test positive on 07/16/2020. Gastroenterology is following and input is appreciated. EGD was being considered but left leg hematoma appears to be more acute source of blood loss. Continue Protonix daily. Per GI, no further testing required. (4) Aortic valve replaced: Code(s): Z95.2 - Presence of prosthetic heart valve Status: Inactive Assessment and Plan: He is maintained on chronic warfarin for atrial fibrillation and for a mechanical aortic valve. INR goal is 2.0-3.0. INR was 3.4 at presentation. He received 1 unit FFP on 07/15 to bring down INR for procedure planning. Heparin drip resumed post skin grafting procedure; Coumadin resumed with daily INRs. IINR 1.3. contineu coumadin tonight. check inr in am. coumadin to 3 mg, currently on hold with bridign heparin du eto planned kidney biopsy. (5) Acute on chronic renal failure: Qualifiers: Acute renal failure type: unspecified Chronic kidney disease stage: stage 3 (moderate) Chronic kidney disease stage 3 subtype: stage 3b (GFR 30-44) Qualified Code(s): N17.9 - Acute kidney failure, unspecified; N18.32 - Chronic kidney disease, stage 3b Code(s): N17.9 - Acute kidney failure, unspecified; N18.9 - Chronic kidney disease, unspecified Status: Acute Assessment and Plan: Baseline creatinine appears to be variable around 2.0 but stable. Creatinine upon presentation is 2.7. Suspect acute injury is multifactorial when considering diuresis, relative hypotension, and profound anemia. Renal US showed cortical thinning without hydronephrosis. [place]>Eamon light chain with positive SPEP with M spike. Concern for MGUS vs MM. BM Bx performed 07/31. urine immunofixation negative. oncology consulted. Continue to follow closely with the addition of ACEI. SIF with IgG kappa monclonal band present and UIF negative. Appreciate Oncology and nephrology input. bone marrow biopsy performed 07/31. 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 Dr. Nowak suggested kidney biopsy. planned for this awaiting inr lower than 1
[2020-08-04] MEDS: EPOETIN ALFA-EPBX 10,000 UNITS/ML VIAL 10000 UNITS SUB-Q (13:56)
[2020-08-04 14:00] VITALS: BP 105/47; PULSE 75; RESP 20; TEMP 36.3; O2SAT 100
--- NOTE | 2020-08-04 15:12 | PC.NURSE ---
On 08/04/20, the student, [Emma Romero ], provided care and completed [email or web address] documentation on this patient. I have reviewed the student's documentation and agree with the findings.
[2020-08-04 16:20] LABS: Partial Thromboplastin Time 90.1 SECONDS (22.3-36.8)
[2020-08-04 16:54] LABS: Glucose Point of Care 175 (65-105)
[2020-08-04] MEDS: SENNOSIDES 8.6 MG TABLET 17.2 MG PO (20:24)
[2020-08-04 20:25] VITALS: PULSE 76
[2020-08-04] MEDS: METOPROLOL TARTRATE 12.5 MG TABLET PO (20:25)
[2020-08-04] MEDS: MELATONIN 3 MG TABLET 6 MG PO (20:25)
[2020-08-04] MEDS: traZODone HCL 25 MG TABLET PO (20:25)
[2020-08-04] MEDS: ATORVASTATIN 40 MG TABLET PO (20:26)
[2020-08-04 20:33] LABS: Glucose Point of Care 176 (65-105)
[2020-08-04 21:29] VITALS: BP 101/41; PULSE 76; RESP 16; TEMP 36.4; O2SAT 98
[2020-08-04 22:15] LABS: Partial Thromboplastin Time 91.1 SECONDS (22.3-36.8)
[2020-08-05] MEDS: HEPARIN SOD/D5W 100 UNITS/ML 25,000 UNITS/250 ML BAG 13 UNITS IV CONT ×2 (04:21→23:34)
[2020-08-05 05:19] LABS: Basophils Percent Auto 0.5 % (0.2-1.2); Eosinophils Absolute Auto 0.7 K/mm3 (0-0.3); Eosinophils Percent Auto 12.3 % (0-4.4); Hematocrit 25.3 % (42.0-52.0); Hemoglobin 7.9 g/dL (14.0-18.0); Immature Granulocyte Absolute 0.12 K/mm3 (0.00-0.031); Lymphocytes Absolute Auto 0.64 K/mm3 (0.9-3.2); Lymphocytes Percent Auto 10.8 % (18.3-44.2); Mean Corpuscular HGB Conc 31.2 g/dl (32-36); Mean Corpuscular Hemoglobin 27.9 pg (26-34); Mean Corpuscular Volume 89.4 fl (80-100); Mean Platelet Volume 10.9 fl (7.4-10.4); Monocytes Absolute Auto 0.9 K/mm3 (0.1-0.6); Monocytes Percent Auto 14.3 % (2.6-8.5); Neutrophils Absolute Auto 3.6 K/mm3 (1.3-6.7); Neutrophils Percent Auto 60.1 % (45.5-73.1); Platelet Count Result 117 k/mm3 (150-375); Red Blood Count 2.83 M/mm3 (4.6-6.20); Red Cell Distribution Width 17.2 % (11.5-14.5); White Blood Count 5.9 K/mm3 (4.5-10.0)
[2020-08-05 05:31] LABS: INR 1.6; Prothrombin Time 19.8 Seconds (11.1-14.7)
[2020-08-05 05:32] LABS: Anion Gap 8 mmol/L (8-16); Blood Urea Nitrogen 67 mg/dL (9-20); Calcium 8.4 mg/dL (8.4-10.2); Carbon Dioxide 23 mmol/L (22-30); Chloride 98 mmol/L (98-107); Estimated CRCL calculation 25 ml/min; Estimated Glomerular Filt Rate 24; Glucose 146 mg/dL (75-110); Potassium 5.1 mmol/L (3.4-5.0); Sodium 129 mmol/L (137-145)
[2020-08-05 05:33] LABS: Partial Thromboplastin Time 87.9 SECONDS (22.3-36.8)
[2020-08-05 06:00] VITALS: BP 106/44; PULSE 56; RESP 16; TEMP 36.4; O2SAT 97
[2020-08-05 07:58] LABS: Glucose Point of Care 134 (65-105)
[2020-08-05] MEDS: FUROSEMIDE 40 MG TABLET PO (08:48)
[2020-08-05] MEDS: TAMSULOSIN HCL 0.4 MG CAPSULE PO (08:48)
[2020-08-05] MEDS: FINASTERIDE 5 MG TABLET PO (08:48)
[2020-08-05] MEDS: MAGNESIUM OXIDE 400 MG TABLET PO (08:48)
[2020-08-05] MEDS: PREGABALIN (*CRX) 75 MG CAPSULE PO ×2 (08:48→16:45)
[2020-08-05 08:49] VITALS: PULSE 82
[2020-08-05] MEDS: DULoxetine HCL 30 MG CAPSULE.DR PO (08:49)
[2020-08-05] MEDS: MULTIVITAMINS THERAPEUTIC TAB (*BKC) 1 TABLET PO (08:49)
[2020-08-05] MEDS: ASCORBIC ACID 500 MG TABLET PO ×2 (08:49→16:45)
[2020-08-05] MEDS: METOPROLOL TARTRATE 12.5 MG TABLET PO ×2 (08:49→20:44)
[2020-08-05] MEDS: PANTOPRAZOLE 40 MG TABLET PO ×2 (08:49→20:44)
[2020-08-05] MEDS: hydrOXYzine HCL 25 MG TABLET PO ×4 (08:49→20:44)
[2020-08-05] MEDS: FERROUS SULFATE 324 MG TABLET PO (08:49)
[2020-08-05] MEDS: SILVERGEL (ELTA) 45 ML 1 APPLIC TOPICAL (08:50)
[2020-08-05] MEDS: EUCERIN CREAM 120 GM JAR 1 APPLIC TOPICAL ×2 (08:50→16:46)
--- NOTE | 2020-08-05 10:13 | PM.PNNEP ---
Progress Note: A&P Assessment and Plan (1) ANDRADE (acute kidney injury): Code(s): N17.9 - Acute kidney failure, unspecified Status: Acute Assessment and Plan: resolved (2) Chronic kidney disease, stage IV (severe): Code(s): N18.4 - Chronic kidney disease, stage 4 (severe) Status: Chronic Assessment and Plan: due to chronic diuretics, diabetes, age, and vascular disease baseline creatinine ~ 1.6 - 2.1mg/dl He is at baseline The patient does have a positive paraprotein. Will get a renal biopsy on Friday hopefully. We discussed the issues were having with anticoagulation and need for heparin drip to protect his valve. (3) Anemia: Code(s): D64.9 - Anemia, unspecified Status: Acute Assessment and Plan: due to a combination of previous hematuria, supratherapuetic INR, hematoma, low platelet count, and melena on Epogen while hospitalized hb stable around 8 (4) Hematoma of left lower extremity: Qualifiers: Encounter type: initial encounter Qualified Code(s): S80.12XA - Contusion of left lower leg, initial encounter Code(s): S80.12XA - Contusion of left lower leg, initial encounter Status: Resolved Assessment and Plan: status/post incision and drainage as well as debridement with skin grafting General Surgery and Plastic Surgery following local wound care (5) Chronic venous insufficiency of lower extremity: Code(s): I87.2 - Venous insufficiency (chronic) (peripheral) Status: Chronic Assessment and Plan: wound care following pain control (6) CHF (congestive heart failure): Qualifiers: Heart failure chronicity: acute on chronic Heart failure type: unspecified Qualified Code(s): I50.9 - Heart failure, unspecified Code(s): I50.9 - Heart failure, unspecified Status: Chronic Assessment and Plan: on oral lasix at this time follow respiratory status started on low dose VIELKA-I and tolerating Subjective Date/time seen: 08/05/20 10:13 Interval history: Patient feels okay today. His INR was too high to do the biopsy yesterday Today the INR is down to 1.6 Review of Systems Cardiovascular: Cardiovascular: Reports no additional cardiovascular complaints Respiratory: Respiratory: Reports no additional respiratory complaints Gastrointestinal: Gastrointestinal: Reports no additional gastrointestinal complaints Genitourinary: Genitourinary: Reports no additional male genitourinary complaints Exam Narrative: Exam Narrative: General: Elderly male in NAD Heart: normal S1 and S2; no rub Lungs: clear Abdomen: soft, nontender, nondistended, positive bowel sounds Extremities: trace - 1+ edema Skin: chronic venous stasis + multiple wounds Objective Data Vital Signs Vital Signs: Vital Signs - 24 hr 08/04/20 14:00 08/04/20 20:25 08/04/20 21:29 Temperature 36.3 C L 36.4 C Pulse Rate 75 76 76 Respiratory Rate 20 16 Blood Pressure 105/47 L 101/41 L Pulse Oximetry 100 98 08/05/20 06:00 08/05/20 08:49 Temperature 36.4 C Pulse Rate 56 L 82 Respiratory Rate 16 Blood Pressure 106/44 L Pulse Oximetry 97 Intake/Output Intake/Output: Intake & Output 08/02/20 08/03/20 08/04/20 08/05/20 23:59 23:59 23:59 23:59 Intake Total 1960 1940 2110 1170 Output Total 1025 1375 900 800 Balance 361 200 0104 370 Meds/Results Medications: Active Medications Generic Name Dose Route Start Last Admin Trade Name Freq PRN Reason Stop Dose Admin Acetaminophen 500 mg 07/18/20 11:51 08/04/20 09:12 Acetaminophen 500 Mg Tablet PO 500 mg Q6H PRN Administration Mild Pain (1-3) or Fever Hydrocodone Bitart/Acetaminophen 1 tab 07/18/20 11:51 08/03/20 21:07 Hydrocodone/Acetaminophen (*Crx) 5-325 Mg Tablet PO 08/06/20 11:52 1 tab Q4H PRN Administration Pain Rated 4-6 Ascorbic Acid 500 mg 07/13/20 09:00 08/05/20 08:49 Ascor
[2020-08-05 11:41] LABS: Glucose Point of Care 141 (65-105)
--- NOTE | 2020-08-05 13:33 | PM.IMPN ---
Progress Note: A&P Assessment and Plan (1) Hematoma of left lower extremity: Qualifiers: Encounter type: initial encounter Qualified Code(s): S80.12XA - Contusion of left lower leg, initial encounter Code(s): S80.12XA - Contusion of left lower leg, initial encounter Status: Resolved Assessment and Plan: He has a large, dark purple hematoma of left posterior calf. Related to recent trauma from a fall just prior to admission. The area was exquisitely tender and leg was edematous. This is likely source for anemia. Left lower extremity CT demonstrates large subcutaneous hematoma. General surgery was consulted and patient now s/p debridement of left calf hematoma on 07/18/20. Patient tolerated the procedure well. Plastic surgery consulted and patient now s/p skin grafting 07/27. Needs bedrest for 5 days. Plan for SNF placement at discharge. (2) Acute blood loss anemia: Code(s): D62 - Acute posthemorrhagic anemia Status: Acute Assessment and Plan: Acute on chronic normocytic anemia. He was recently hospitalized in May 2020 for gross heamturia and underwent blood transfusion at that time. Hemoglobin 5.8 on admission and has required a total of 6 units pRBC since. His last transfusion was on 07/18. Suspected source of anemia this admission is from posterior left calf hematoma. Additional concern for GI component given reported episode of melena prior to presentation and positive fecal occult blood test but no further testing required per GI. Hgb stable recently in the 8 range. Continue to monitor H&H closely since Coumadin resumed. INR at 1.8 currently coumadin i nhold for planned biopsy of kidney INR at 1.6 trending down. likely will be lower by Friday for kidney biospy (3) Occult blood in stools: Code(s): R19.5 - Other fecal abnormalities Status: Acute Assessment and Plan: Reports of melena prior to presentation. Fecal occult blood test positive on 07/16/2020. Gastroenterology is following and input is appreciated. EGD was being considered but left leg hematoma appears to be more acute source of blood loss. Continue Protonix daily. Per GI, no further testing required. (4) Aortic valve replaced: Code(s): Z95.2 - Presence of prosthetic heart valve Status: Inactive Assessment and Plan: He is maintained on chronic warfarin for atrial fibrillation and for a mechanical aortic valve. INR goal is 2.0-3.0. INR was 3.4 at presentation. He received 1 unit FFP on 07/15 to bring down INR for procedure planning. Heparin drip resumed post skin grafting procedure; Coumadin resumed with daily INRs. IINR 1.3. contineu coumadin tonight. check inr in am. coumadin to 3 mg, currently on hold with bridign heparin du eto planned kidney biopsy. (5) Acute on chronic renal failure: Qualifiers: Acute renal failure type: unspecified Chronic kidney disease stage: stage 3 (moderate) Chronic kidney disease stage 3 subtype: stage 3b (GFR 30-44) Qualified Code(s): N17.9 - Acute kidney failure, unspecified; N18.32 - Chronic kidney disease, stage 3b Code(s): N17.9 - Acute kidney failure, unspecified; N18.9 - Chronic kidney disease, unspecified Status: Acute Assessment and Plan: Baseline creatinine appears to be variable around 2.0 but stable. Creatinine upon presentation is 2.7. Suspect acute injury is multifactorial when considering diuresis, relative hypotension, and profound anemia. Renal US showed cortical thinning without hydronephrosis. [place]>Eamon light chain with positive SPEP with M spike. Concern for MGUS vs MM. BM Bx performed 07/31. urine immunofixation negative. oncology consulted. Continue to follow closely with the addition of ACEI. SIF with IgG kappa monclonal band present and UIF negative. Appreciate Oncology and nephrology input. bone marrow biopsy performed 07/31. 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
[2020-08-05 14:00] VITALS: BP 122/54; PULSE 74; RESP 24; TEMP 36.6; O2SAT 100
[2020-08-05] MEDS: HYDROcodone/acetaminophen (*CRX) 5-325 MG TABLET 1 TAB PO ×2 (14:48→20:46)
[2020-08-05 16:56] LABS: Glucose Point of Care 111 (65-105)
[2020-08-05 20:44] VITALS: PULSE 74
[2020-08-05] MEDS: ATORVASTATIN 40 MG TABLET PO (20:44)
[2020-08-05] MEDS: MELATONIN 3 MG TABLET 6 MG PO (20:44)
[2020-08-05] MEDS: SENNOSIDES 8.6 MG TABLET 17.2 MG PO (20:44)
[2020-08-05] MEDS: traZODone HCL 25 MG TABLET PO (20:44)
[2020-08-05 21:26] LABS: Glucose Point of Care 153 (65-105)
[2020-08-05 22:00] VITALS: BP 111/43; PULSE 73; RESP 20; TEMP 36.4; O2SAT 98
[2020-08-06 05:12] LABS: Basophils Percent Auto 0.3 % (0.2-1.2); Eosinophils Absolute Auto 0.8 K/mm3 (0-0.3); Eosinophils Percent Auto 11.8 % (0-4.4); Hematocrit 25.5 % (42.0-52.0); Immature Granulocyte Absolute 0.19 K/mm3 (0.00-0.031); Immature Granulocyte Percent A 2.9 % (0-0.5); Lymphocytes Percent Auto 10.8 % (18.3-44.2); Mean Corpuscular HGB Conc 31.4 g/dl (32-36); Mean Corpuscular Hemoglobin 28.6 pg (26-34); Mean Corpuscular Volume 91.1 fl (80-100); Mean Platelet Volume 11.1 fl (7.4-10.4); Neutrophils Absolute Auto 3.8 K/mm3 (1.3-6.7); Neutrophils Percent Auto 59.2 % (45.5-73.1); Platelet Count Result 120 k/mm3 (150-375); White Blood Count 6.5 K/mm3 (4.5-10.0)
[2020-08-06 05:22] LABS: INR 1.5; Prothrombin Time 18.5 Seconds (11.1-14.7)
[2020-08-06 05:24] LABS: Partial Thromboplastin Time 79.6 SECONDS (22.3-36.8)
[2020-08-06 05:30] LABS: Anion Gap 5 mmol/L (8-16); Blood Urea Nitrogen 68 mg/dL (9-20); Calcium 8.6 mg/dL (8.4-10.2); Carbon Dioxide 25 mmol/L (22-30); Chloride 97 mmol/L (98-107); Estimated CRCL calculation 23 ml/min; Estimated Glomerular Filt Rate 22; Glucose 119 mg/dL (75-110); Potassium 5.3 mmol/L (3.4-5.0); Sodium 127 mmol/L (137-145)
[2020-08-06 06:00] VITALS: BP 105/43; PULSE 68; RESP 20; TEMP 36.3; O2SAT 98
[2020-08-06 08:09] LABS: Glucose Point of Care 125 (65-105)
--- NOTE | 2020-08-06 08:23 | P.PNNP_ITS ---
Progress Note: A&P Assessment and Plan (1) ANDRADE (acute kidney injury): Code(s): N17.9 - Acute kidney failure, unspecified Status: Acute Assessment and Plan: * resolved (2) Chronic kidney disease, stage IV (severe): Code(s): N18.4 - Chronic kidney disease, stage 4 (severe) Status: Chronic Assessment and Plan: * due to chronic diuretics, diabetes, age, and vascular disease * baseline creatinine ~ 1.6 - 2.1mg/dl * His creatinine inderjit a little bit in the last couple of days. * Will hold diuretics. Repeat labs this afternoon. Potassium is a little high as well. Will repeat that as well. * The patient does have a positive paraprotein. Will get a renal biopsy on Friday. * INR is 1.5 today, hopefully will be better tomorrow. * We discussed the issues were having with anticoagulation and need for heparin drip to protect his valve. (3) Anemia: Code(s): D64.9 - Anemia, unspecified Status: Acute Assessment and Plan: * due to a combination of previous hematuria, supratherapuetic INR, hematoma, low platelet count, and melena * on Epogen while hospitalized * hb stable around 8 (4) Hematoma of left lower extremity: Qualifiers: Encounter type: initial encounter Qualified Code(s): S80.12XA - Contusion of left lower leg, initial encounter Code(s): S80.12XA - Contusion of left lower leg, initial encounter Status: Resolved Assessment and Plan: * status/post incision and drainage as well as debridement with skin grafting * General Surgery and Plastic Surgery following * local wound care (5) Chronic venous insufficiency of lower extremity: Code(s): I87.2 - Venous insufficiency (chronic) (peripheral) Status: Chronic Assessment and Plan: * wound care following * pain control (6) CHF (congestive heart failure): Qualifiers: Heart failure chronicity: acute on chronic Heart failure type: unspecified Qualified Code(s): I50.9 - Heart failure, unspecified Code(s): I50.9 - Heart failure, unspecified Status: Chronic Assessment and Plan: * on oral lasix at this time * follow respiratory status * started on low dose VIELKA-I and tolerating Subjective Date/time seen: 08/06/20 08:23 Interval history: Patient feels okay today. Breathing okay. No diarrhea Review of Systems Cardiovascular: Cardiovascular: Reports no additional cardiovascular complaints Respiratory: Respiratory: Reports no additional respiratory complaints Gastrointestinal: Gastrointestinal: Reports no additional gastrointestinal complaints Genitourinary: Genitourinary: Reports no additional male genitourinary complaints Exam Narrative: Exam Narrative: General: Elderly male in NAD Heart: normal S1 and S2; no rub Lungs: clear bilaterally Abdomen: soft, nontender, nondistended, positive bowel sounds Extremities: trace - 1+ edema Skin: chronic venous stasis + multiple wounds Objective Data Vital Signs Vital Signs: Vital Signs - 24 hr 08/05/20 08:49 08/05/20 14:00 08/05/20 20:44 Temperature 36.6 C Pulse Rate 82 74 74 Respiratory Rate 24 H Blood Pressure 122/54 L Pulse Oximetry 100 08/05/20 22:00 08/06/20 06:00 Temperature 36.4 C L 36.3 C L Pulse Rate 73 68 Respiratory Rate 20 20
--- NOTE | 2020-08-06 08:23 | PM.PNNEP ---
Progress Note: A&P Assessment and Plan (1) ANDRADE (acute kidney injury): Code(s): N17.9 - Acute kidney failure, unspecified Status: Acute Assessment and Plan: resolved (2) Chronic kidney disease, stage IV (severe): Code(s): N18.4 - Chronic kidney disease, stage 4 (severe) Status: Chronic Assessment and Plan: due to chronic diuretics, diabetes, age, and vascular disease baseline creatinine ~ 1.6 - 2.1mg/dl His creatinine inderjit a little bit in the last couple of days. Will hold diuretics. Repeat labs this afternoon. Potassium is a little high as well. Will repeat that as well. The patient does have a positive paraprotein. Will get a renal biopsy on Friday. INR is 1.5 today, hopefully will be better tomorrow. We discussed the issues were having with anticoagulation and need for heparin drip to protect his valve. (3) Anemia: Code(s): D64.9 - Anemia, unspecified Status: Acute Assessment and Plan: due to a combination of previous hematuria, supratherapuetic INR, hematoma, low platelet count, and melena on Epogen while hospitalized hb stable around 8 (4) Hematoma of left lower extremity: Qualifiers: Encounter type: initial encounter Qualified Code(s): S80.12XA - Contusion of left lower leg, initial encounter Code(s): S80.12XA - Contusion of left lower leg, initial encounter Status: Resolved Assessment and Plan: status/post incision and drainage as well as debridement with skin grafting General Surgery and Plastic Surgery following local wound care (5) Chronic venous insufficiency of lower extremity: Code(s): I87.2 - Venous insufficiency (chronic) (peripheral) Status: Chronic Assessment and Plan: wound care following pain control (6) CHF (congestive heart failure): Qualifiers: Heart failure chronicity: acute on chronic Heart failure type: unspecified Qualified Code(s): I50.9 - Heart failure, unspecified Code(s): I50.9 - Heart failure, unspecified Status: Chronic Assessment and Plan: on oral lasix at this time follow respiratory status started on low dose VIELKA-I and tolerating Subjective Date/time seen: 08/06/20 08:23 Interval history: Patient feels okay today. Breathing okay. No diarrhea Review of Systems Cardiovascular: Cardiovascular: Reports no additional cardiovascular complaints Respiratory: Respiratory: Reports no additional respiratory complaints Gastrointestinal: Gastrointestinal: Reports no additional gastrointestinal complaints Genitourinary: Genitourinary: Reports no additional male genitourinary complaints Exam Narrative: Exam Narrative: General: Elderly male in NAD Heart: normal S1 and S2; no rub Lungs: clear bilaterally Abdomen: soft, nontender, nondistended, positive bowel sounds Extremities: trace - 1+ edema Skin: chronic venous stasis + multiple wounds Objective Data Vital Signs Vital Signs: Vital Signs - 24 hr 08/05/20 08:49 08/05/20 14:00 08/05/20 20:44 Temperature 36.6 C Pulse Rate 82 74 74 Respiratory Rate 24 H Blood Pressure 122/54 L Pulse Oximetry 100 08/05/20 22:00 08/06/20 06:00 Temperature 36.4 C L 36.3 C L Pulse Rate 73 68 Respiratory Rate 20 20 Blood Pressure 111/43 L 105/43 L Pulse Oximetry 98 98 Intake/Output Intake/Output: Intake & Output 08/03/20 08/04/20 08/05/20 08/06/20 23:59 23:59 23:59 23:59 Intake Total 1940 2110 1900 500 Output Total 3773 790 3156 700 Balance 565 1210 575 -200 Meds/Results Medications: Active Medications Generic Name Dose Route Start Last Admin Trade Name Freq PRN Reason Stop Dose Admin Acetaminophen 500 mg 07/18/20 11:51 08/04/20 09:12 Acetaminophen 500 Mg Tablet PO 500 mg Q6H PRN Administration Mild Pain (1-3) or Fever Hydrocodone Bitart/Acetaminophen 1 tab 07/18/20 11:51 08/05/20 20:46 Hydrocodone/Acetamino
[2020-08-06] MEDS: polyethylene glycoL 3350 17 GM POWD.PACK PO (08:32)
[2020-08-06] MEDS: TAMSULOSIN HCL 0.4 MG CAPSULE PO (08:32)
[2020-08-06] MEDS: PANTOPRAZOLE 40 MG TABLET PO ×2 (08:32→20:34)
[2020-08-06] MEDS: PREGABALIN (*CRX) 75 MG CAPSULE PO ×2 (08:32→16:56)
[2020-08-06] MEDS: MULTIVITAMINS THERAPEUTIC TAB (*BKC) 1 TABLET PO (08:32)
[2020-08-06] MEDS: ASCORBIC ACID 500 MG TABLET PO ×2 (08:32→16:56)
[2020-08-06] MEDS: FERROUS SULFATE 324 MG TABLET PO (08:32)
[2020-08-06] MEDS: MAGNESIUM OXIDE 400 MG TABLET PO (08:32)
[2020-08-06] MEDS: DULoxetine HCL 30 MG CAPSULE.DR PO (08:32)
[2020-08-06 08:33] VITALS: PULSE 68
[2020-08-06] MEDS: hydrOXYzine HCL 25 MG TABLET PO ×4 (08:33→20:34)
[2020-08-06] MEDS: EUCERIN CREAM 120 GM JAR 1 APPLIC TOPICAL ×2 (08:33→17:06)
[2020-08-06] MEDS: FINASTERIDE 5 MG TABLET PO (08:33)
[2020-08-06] MEDS: SILVERGEL (ELTA) 45 ML 1 APPLIC TOPICAL (08:33)
[2020-08-06] MEDS: METOPROLOL TARTRATE 12.5 MG TABLET PO ×2 (08:33→20:34)
[2020-08-06] MEDS: HYDROcodone/acetaminophen (*CRX) 5-325 MG TABLET 1 TAB PO ×2 (11:49→20:34)
[2020-08-06 11:53] LABS: Glucose Point of Care 153 (65-105)
--- NOTE | 2020-08-06 12:41 | PM.IMPN ---
Progress Note: A&P Assessment and Plan (1) Hematoma of left lower extremity: Qualifiers: Encounter type: initial encounter Qualified Code(s): S80.12XA - Contusion of left lower leg, initial encounter Code(s): S80.12XA - Contusion of left lower leg, initial encounter Status: Resolved Assessment and Plan: He has a large, dark purple hematoma of left posterior calf. Related to recent trauma from a fall just prior to admission. The area was exquisitely tender and leg was edematous. This is likely source for anemia. Left lower extremity CT demonstrates large subcutaneous hematoma. General surgery was consulted and patient now s/p debridement of left calf hematoma on 07/18/20. Patient tolerated the procedure well. Plastic surgery consulted and patient now s/p skin grafting 07/27. Needs bedrest for 5 days. Plan for SNF placement at discharge. (2) Acute blood loss anemia: Code(s): D62 - Acute posthemorrhagic anemia Status: Acute Assessment and Plan: Acute on chronic normocytic anemia. He was recently hospitalized in May 2020 for gross heamturia and underwent blood transfusion at that time. Hemoglobin 5.8 on admission and has required a total of 6 units pRBC since. His last transfusion was on 07/18. Suspected source of anemia this admission is from posterior left calf hematoma. Additional concern for GI component given reported episode of melena prior to presentation and positive fecal occult blood test but no further testing required per GI. Hgb stable recently in the 8 range. Continue to monitor H&H closely since Coumadin resumed. INR at 1.8 currently coumadin i nhold for planned biopsy of kidney INR at 1.5trending down. likely will be lower by Friday for kidney biospy will hold heparin gtt at 3 am in am for kidney biopsy tomorrow. (3) Occult blood in stools: Code(s): R19.5 - Other fecal abnormalities Status: Acute Assessment and Plan: Reports of melena prior to presentation. Fecal occult blood test positive on 07/16/2020. Gastroenterology is following and input is appreciated. EGD was being considered but left leg hematoma appears to be more acute source of blood loss. Continue Protonix daily. Per GI, no further testing required. (4) Aortic valve replaced: Code(s): Z95.2 - Presence of prosthetic heart valve Status: Inactive Assessment and Plan: He is maintained on chronic warfarin for atrial fibrillation and for a mechanical aortic valve. INR goal is 2.0-3.0. INR was 3.4 at presentation. He received 1 unit FFP on 07/15 to bring down INR for procedure planning. Heparin drip resumed post skin grafting procedure; Coumadin resumed with daily INRs. IINR 1.3. contineu coumadin tonight. check inr in am. coumadin to 3 mg, currently on hold with [place] for planned biopsy. (5) Acute on chronic renal failure: Qualifiers: Acute renal failure type: unspecified Chronic kidney disease stage: stage 3 (moderate) Chronic kidney disease stage 3 subtype: stage 3b (GFR 30-44) Qualified Code(s): N17.9 - Acute kidney failure, unspecified; N18.32 - Chronic kidney disease, stage 3b Code(s): N17.9 - Acute kidney failure, unspecified; N18.9 - Chronic kidney disease, unspecified Status: Acute Assessment and Plan: Baseline creatinine appears to be variable around 2.0 but stable. Creatinine upon presentation is 2.7. Suspect acute injury is multifactorial when considering diuresis, relative hypotension, and profound anemia. Renal US showed cortical thinning without hydronephrosis. [place]>Eamon light chain with positive SPEP with M spike. Concern for MGUS vs MM. BM Bx performed 07/31. urine immunofixation negative. oncology consulted. Continue to follow closely with the addition of ACEI. SIF with IgG kappa monclonal band present and UIF negative. Appreciate Oncology and nephrology input. bone marrow biopsy performed 07/31. Bone aftab
[2020-08-06 14:00] VITALS: BP 114/46; PULSE 74; RESP 16; TEMP 37.2; O2SAT 99
[2020-08-06 14:15] LABS: Anion Gap 6 mmol/L (8-16); Blood Urea Nitrogen 66 mg/dL (9-20); Calcium 8.6 mg/dL (8.4-10.2); Carbon Dioxide 24 mmol/L (22-30); Chloride 96 mmol/L (98-107); Estimated CRCL calculation 23 ml/min; Estimated Glomerular Filt Rate 22; Glucose 121 mg/dL (75-110); Potassium 5.3 mmol/L (3.4-5.0); Sodium 126 mmol/L (137-145)
[2020-08-06 16:39] LABS: Glucose Point of Care 101 (65-105)
[2020-08-06] MEDS: SODIUM POLYSTYRENE SULFONONATE 15 GM/60 ML BTL PO (16:41)
[2020-08-06] MEDS: HEPARIN SOD/D5W 100 UNITS/ML 25,000 UNITS/250 ML BAG 13 UNITS IV CONT (16:44)
[2020-08-06 20:34] VITALS: PULSE 91
[2020-08-06] MEDS: MELATONIN 3 MG TABLET 6 MG PO (20:34)
[2020-08-06] MEDS: ATORVASTATIN 40 MG TABLET PO (20:34)
[2020-08-06] MEDS: traZODone HCL 25 MG TABLET PO (20:35)
[2020-08-06] MEDS: SENNOSIDES 8.6 MG TABLET 17.2 MG PO (20:35)
[2020-08-06 20:56] VITALS: BP 114/59; PULSE 91; RESP 18; TEMP 36.9; O2SAT 98
[2020-08-06 21:09] LABS: Glucose Point of Care 194 (65-105)
[2020-08-07 05:45] LABS: Albumin Level 3.5 g/dL (3.5-5.1); Anion Gap 8 mmol/L (8-16); Blood Urea Nitrogen 68 mg/dL (9-20); Calcium 9.1 mg/dL (8.4-10.2); Carbon Dioxide 24 mmol/L (22-30); Chloride 98 mmol/L (98-107); Estimated CRCL calculation 26 ml/min; Estimated Glomerular Filt Rate 26; Glucose 118 mg/dL (75-110); Phosphorus 5.4 mg/dL (2.5-4.5); Potassium 5.2 mmol/L (3.4-5.0); Sodium 130 mmol/L (137-145)
[2020-08-07 05:47] LABS: Partial Thromboplastin Time 42.7 SECONDS (22.3-36.8)
[2020-08-07 05:50] VITALS: BP 109/53; PULSE 69; RESP 16; TEMP 36.9; O2SAT 99
[2020-08-07 08:50] LABS: INR 1.3; Prothrombin Time 16.5 Seconds (11.1-14.7)
[2020-08-07 08:51] VITALS: PULSE 69
[2020-08-07] MEDS: PANTOPRAZOLE 40 MG TABLET PO ×2 (08:51→21:40)
[2020-08-07] MEDS: FINASTERIDE 5 MG TABLET PO (08:51)
[2020-08-07] MEDS: METOPROLOL TARTRATE 12.5 MG TABLET PO ×2 (08:51→21:39)
[2020-08-07] MEDS: PREGABALIN (*CRX) 75 MG CAPSULE PO ×2 (08:51→17:29)
[2020-08-07] MEDS: TAMSULOSIN HCL 0.4 MG CAPSULE PO (08:51)
[2020-08-07] MEDS: DULoxetine HCL 30 MG CAPSULE.DR PO (08:51)
[2020-08-07] MEDS: hydrOXYzine HCL 25 MG TABLET PO ×3 (08:52→21:38)
[2020-08-07] MEDS: SODIUM POLYSTYRENE SULFONONATE 15 GM/60 ML BTL PO (08:52)
[2020-08-07] MEDS: ASCORBIC ACID 500 MG TABLET PO ×2 (08:53→17:30)
[2020-08-07 09:07] LABS: Glucose Point of Care 133 (65-105)
[2020-08-07] MEDS: SILVERGEL (ELTA) 45 ML 1 APPLIC TOPICAL (10:00)
[2020-08-07] MEDS: EUCERIN CREAM 120 GM JAR 1 APPLIC TOPICAL ×2 (10:00→17:30)
[2020-08-07 12:30] LABS: Glucose Point of Care 114 (65-105)
[2020-08-07 14:00] VITALS: BP 126/56; PULSE 64; RESP 16; TEMP 36.3; O2SAT 100
[2020-08-07 14:21] VITALS: BP 119/63; BP 134/69; PULSE 60; PULSE 71; RESP 16; RESP 18; O2SAT 100; O2SAT 99
--- NOTE | 2020-08-07 14:21 | PM.IMPN ---
Progress Note: A&P Assessment and Plan (1) Hematoma of left lower extremity: Qualifiers: Encounter type: initial encounter Qualified Code(s): S80.12XA - Contusion of left lower leg, initial encounter Code(s): S80.12XA - Contusion of left lower leg, initial encounter Status: Resolved Assessment and Plan: He has a large, dark purple hematoma of left posterior calf. Related to recent trauma from a fall just prior to admission. The area was exquisitely tender and leg was edematous. This is likely source for anemia. Left lower extremity CT demonstrates large subcutaneous hematoma. General surgery was consulted and patient now s/p debridement of left calf hematoma on 07/18/20. Patient tolerated the procedure well. Plastic surgery consulted and patient now s/p skin grafting 07/27. Needs bedrest for 5 days. Plan for SNF placement at discharge. (2) Acute blood loss anemia: Code(s): D62 - Acute posthemorrhagic anemia Status: Acute Assessment and Plan: Acute on chronic normocytic anemia. He was recently hospitalized in May 2020 for gross heamturia and underwent blood transfusion at that time. Hemoglobin 5.8 on admission and has required a total of 6 units pRBC since. His last transfusion was on 07/18. Suspected source of anemia this admission is from posterior left calf hematoma. Additional concern for GI component given reported episode of melena prior to presentation and positive fecal occult blood test but no further testing required per GI. Hgb stable recently in the 8 range. Continue to monitor H&H closely since Coumadin resumed. INR at 1.8 currently coumadin i nhold for planned biopsy of kidney INR at 1.5trending down. likely will be lower by Friday for kidney biospy heparin gtt off for planned renal biopsy. will restart post biopsy tonight. resume coumadin from tonight as well, if okay from biopsy standpoint. (3) Occult blood in stools: Code(s): R19.5 - Other fecal abnormalities Status: Acute Assessment and Plan: Reports of melena prior to presentation. Fecal occult blood test positive on 07/16/2020. Gastroenterology is following and input is appreciated. EGD was being considered but left leg hematoma appears to be more acute source of blood loss. Continue Protonix daily. Per GI, no further testing required. (4) Aortic valve replaced: Code(s): Z95.2 - Presence of prosthetic heart valve Status: Inactive Assessment and Plan: He is maintained on chronic warfarin for atrial fibrillation and for a mechanical aortic valve. INR goal is 2.0-3.0. INR was 3.4 at presentation. He received 1 unit FFP on 07/15 to bring down INR for procedure planning. Heparin drip resumed post skin grafting procedure; Coumadin resumed with daily INRs. IINR 1.3. contineu coumadin tonight. check inr in am. coumadin to 3 mg, currently on hold with bridign for planned biopsy. (5) Acute on chronic renal failure: Qualifiers: Acute renal failure type: unspecified Chronic kidney disease stage: stage 3 (moderate) Chronic kidney disease stage 3 subtype: stage 3b (GFR 30-44) Qualified Code(s): N17.9 - Acute kidney failure, unspecified; N18.32 - Chronic kidney disease, stage 3b Code(s): N17.9 - Acute kidney failure, unspecified; N18.9 - Chronic kidney disease, unspecified Status: Acute Assessment and Plan: Baseline creatinine appears to be variable around 2.0 but stable. Creatinine upon presentation is 2.7. Suspect acute injury is multifactorial when considering diuresis, relative hypotension, and profound anemia. Renal US showed cortical thinning without hydronephrosis. [place]>Eamon light chain with positive SPEP with M spike. Concern for MGUS vs MM. BM Bx performed 07/31. urine immunofixation negative. oncology consulted. Continue to follow closely with the addition of ACEI. SIF with IgG kappa monclonal band present and UIF negative. Appr
[2020-08-07] MEDS: MULTIVITAMINS THERAPEUTIC TAB (*BKC) 1 TABLET PO (14:51)
[2020-08-07] MEDS: MAGNESIUM OXIDE 400 MG TABLET PO (14:51)
[2020-08-07] MEDS: FERROUS SULFATE 324 MG TABLET PO (14:51)
[2020-08-07] MEDS: EPOETIN ALFA-EPBX 10,000 UNITS/ML VIAL 10000 UNITS SUB-Q (14:52)
--- NOTE | 2020-08-07 16:23 | PM.PNNEP ---
Progress Note: A&P Assessment and Plan (1) ANDRADE (acute kidney injury): Code(s): N17.9 - Acute kidney failure, unspecified Status: Acute Assessment and Plan: resolved (2) Chronic kidney disease, stage IV (severe): Code(s): N18.4 - Chronic kidney disease, stage 4 (severe) Status: Chronic Assessment and Plan: due to chronic diuretics, diabetes, age, and vascular disease baseline creatinine ~ 1.6 - 2.1mg/dl creatinine inderjit a little bit in the last couple of days associated with mildly elevated K+ - possibly secondary to VIELKA-I use versus diuretics positive paraproteinemia with bone marrow biopsy results noted - renal biopsy today for further evaluation (3) Anemia: Code(s): D64.9 - Anemia, unspecified Status: Acute Assessment and Plan: due to a combination of previous hematuria, supratherapuetic INR, hematoma, low platelet count, and melena on Epogen while hospitalized follow trend of H/H (4) Hematoma of left lower extremity: Qualifiers: Encounter type: initial encounter Qualified Code(s): S80.12XA - Contusion of left lower leg, initial encounter Code(s): S80.12XA - Contusion of left lower leg, initial encounter Status: Resolved Assessment and Plan: status/post incision and drainage as well as debridement with skin grafting General Surgery and Plastic Surgery following local wound care (5) Chronic venous insufficiency of lower extremity: Code(s): I87.2 - Venous insufficiency (chronic) (peripheral) Status: Chronic Assessment and Plan: wound care following pain control (6) CHF (congestive heart failure): Qualifiers: Heart failure chronicity: acute on chronic Heart failure type: unspecified Qualified Code(s): I50.9 - Heart failure, unspecified Code(s): I50.9 - Heart failure, unspecified Status: Chronic Assessment and Plan: lasix and VIELKA-I on hold follow respiratory status Will continue to follow. Subjective Date/time seen: 08/07/20 16:23 Chart reviewed since last seen -- s/p renal biopsy earlier today and tolerated the procedure well; no other acute issues or complaints voiced at this time; no events overnight. Exam Narrative: Exam Narrative: General: elderly male in NAD Heart: normal S1 and S2; no rub Lungs: clear bilaterally Abdomen: soft, nontender, nondistended, positive bowel sounds Extremities: trace - 1+ edema Skin: chronic venous stasis + multiple wounds that are healing Objective Data Vital Signs Vital Signs: Vital Signs Temp Pulse Resp BP Pulse Ox 08/07/20 14:21 60 16 119/63 99 08/07/20 14:00 36.3 C L 64 16 126/56 L 100 08/07/20 08:51 69 08/07/20 05:50 36.9 C 69 16 109/53 L 99 08/06/20 20:56 36.9 C 91 18 114/59 L 98 08/06/20 20:34 91 Intake/Output Intake/Output: Intake & Output 08/04/20 08/05/20 08/06/20 08/07/20 23:59 23:59 23:59 23:59 Intake Total 2110 1900 2010 400 Output Total 900 1325 1350 1250 Balance 1210 575 660 -850 Meds/Results Medications: Active Medications Generic Name Dose Route Start Last Admin Trade Name Freq PRN Reason Stop Dose Admin Acetaminophen 500 mg 07/18/20 11:51 08/04/20 09:12 Acetaminophen 500 Mg Tablet PO 500 mg Q6H PRN Administration Mild Pain (1-3) or Fever Hydrocodone Bitart/Acetaminophen 1 tab 08/06/20 12:55 08/06/20 20:34 Hydrocodone/Acetaminophen (*Crx) 5-325 Mg Tablet PO 1 tab Q4H PRN Administration Pain Rated 4-6 Ascorbic Acid 500 mg 07/13/20 09:00 08/07/20 08:53 Ascorbic Acid 500 Mg Tablet PO 500 mg BID MARY Administration Atorvastatin Calcium 40 mg 07/12/20 21:10 08/06/20 20:34 Atorvastatin 40 Mg Tablet PO 40 mg HS MARY Administration Bisacodyl 10 mg 07/12/20 20:58 Bisacodyl 10 Mg Suppository RECTAL DAILY PRN Constipation C
[2020-08-07 16:40] LABS: Glucose Point of Care 112 (65-105)
[2020-08-07] MEDS: diphenhydrAMINE HCl CAP 25 MG CAPSULE PO (18:16)
[2020-08-07] MEDS: WARFARIN (*PBKC) 2.5 MG TABLET PO (18:35)
[2020-08-07] MEDS: HEPARIN SOD/D5W 100 UNITS/ML 25,000 UNITS/250 ML BAG 13 UNITS IV CONT (18:42)
[2020-08-07 21:28] VITALS: BP 141/68; PULSE 81; RESP 16; TEMP 36.5; O2SAT 100
[2020-08-07] MEDS: MELATONIN 3 MG TABLET 6 MG PO (21:38)
[2020-08-07 21:39] VITALS: PULSE 88
[2020-08-07] MEDS: SENNOSIDES 8.6 MG TABLET 17.2 MG PO (21:40)
[2020-08-07] MEDS: traZODone HCL 25 MG TABLET PO (21:42)
[2020-08-07] MEDS: ATORVASTATIN 40 MG TABLET PO (21:43)
[2020-08-07 22:17] LABS: Glucose Point of Care 166 (65-105)
[2020-08-07] MEDS: HYDROcodone/acetaminophen (*CRX) 5-325 MG TABLET 1 TAB PO (22:18)
[2020-08-08 00:40] LABS: Partial Thromboplastin Time 85.9 SECONDS (22.3-36.8)
[2020-08-08] MEDS: HEPARIN SOD/D5W 100 UNITS/ML 25,000 UNITS/250 ML BAG 13 UNITS IV CONT (05:29)
[2020-08-08 05:36] VITALS: BP 115/51; PULSE 72; RESP 16; TEMP 36.1; O2SAT 98
[2020-08-08 06:25] LABS: Basophils Percent Auto 0.2 % (0.2-1.2); Eosinophils Absolute Auto 0.6 K/mm3 (0-0.3); Eosinophils Percent Auto 9.7 % (0-4.4); Hematocrit 25.5 % (42.0-52.0); Hemoglobin 8.1 g/dL (14.0-18.0); Immature Granulocyte Absolute 0.18 K/mm3 (0.00-0.031); Immature Granulocyte Percent A 2.8 % (0-0.5); Lymphocytes Absolute Auto 0.73 K/mm3 (0.9-3.2); Lymphocytes Percent Auto 11.2 % (18.3-44.2); Mean Corpuscular HGB Conc 31.8 g/dl (32-36); Mean Corpuscular Hemoglobin 28.4 pg (26-34); Mean Corpuscular Volume 89.5 fl (80-100); Mean Platelet Volume 10.5 fl (7.4-10.4); Monocytes Absolute Auto 0.7 K/mm3 (0.1-0.6); Monocytes Percent Auto 11.3 % (2.6-8.5); Neutrophils Absolute Auto 4.2 K/mm3 (1.3-6.7); Neutrophils Percent Auto 64.8 % (45.5-73.1); Platelet Count Result 124 k/mm3 (150-375); Red Blood Count 2.85 M/mm3 (4.6-6.20); Red Cell Distribution Width 17.1 % (11.5-14.5); White Blood Count 6.5 K/mm3 (4.5-10.0)
[2020-08-08 06:35] LABS: INR 1.2
[2020-08-08 06:36] LABS: Partial Thromboplastin Time 64.4 SECONDS (22.3-36.8)
[2020-08-08] MEDS: HEPARIN SODIUM 5,000 UNITS/ML VIAL 3500 UNITS IV PUSH ×2 (06:41→19:06)
[2020-08-08 06:46] LABS: Anion Gap 6 mmol/L (8-16); Blood Urea Nitrogen 63 mg/dL (9-20); Calcium 8.8 mg/dL (8.4-10.2); Carbon Dioxide 26 mmol/L (22-30); Chloride 100 mmol/L (98-107); Estimated CRCL calculation 27 ml/min; Estimated Glomerular Filt Rate 27; Glucose 130 mg/dL (75-110); Sodium 132 mmol/L (137-145)
[2020-08-08 06:57] LABS: Potassium 4.8 mmol/L (3.4-5.0)
[2020-08-08 07:41] LABS: Glucose Point of Care 137 (65-105)
[2020-08-08] MEDS: FERROUS SULFATE 324 MG TABLET PO (07:59)
[2020-08-08] MEDS: ASCORBIC ACID 500 MG TABLET PO ×2 (07:59→17:32)
[2020-08-08 08:00] VITALS: PULSE 66
[2020-08-08] MEDS: DULoxetine HCL 30 MG CAPSULE.DR PO (08:00)
[2020-08-08] MEDS: hydrOXYzine HCL 25 MG TABLET PO ×4 (08:00→20:53)
[2020-08-08] MEDS: MAGNESIUM OXIDE 400 MG TABLET PO (08:00)
[2020-08-08] MEDS: FINASTERIDE 5 MG TABLET PO (08:00)
[2020-08-08] MEDS: MULTIVITAMINS THERAPEUTIC TAB (*BKC) 1 TABLET PO (08:00)
[2020-08-08] MEDS: PANTOPRAZOLE 40 MG TABLET PO ×2 (08:01→20:53)
[2020-08-08] MEDS: polyethylene glycoL 3350 17 GM POWD.PACK PO (08:01)
[2020-08-08] MEDS: PREGABALIN (*CRX) 75 MG CAPSULE PO ×2 (08:01→17:32)
[2020-08-08] MEDS: TAMSULOSIN HCL 0.4 MG CAPSULE PO (08:01)
[2020-08-08] MEDS: SILVERGEL (ELTA) 45 ML 1 APPLIC TOPICAL (08:05)
[2020-08-08] MEDS: EUCERIN CREAM 120 GM JAR 1 APPLIC TOPICAL ×2 (08:06→17:32)
--- NOTE | 2020-08-08 10:59 | P.PNNP_ITS ---
Progress Note: A&P Assessment and Plan (1) ANDRADE (acute kidney injury): Code(s): N17.9 - Acute kidney failure, unspecified Status: Acute Assessment and Plan: * resolved (2) Chronic kidney disease, stage IV (severe): Code(s): N18.4 - Chronic kidney disease, stage 4 (severe) Status: Chronic Assessment and Plan: * due to chronic diuretics, diabetes, age, and vascular disease * baseline creatinine ~ 1.6 - 2.1mg/dl * creatinine inderjit a little bit in the last couple of days associated with mildly elevated K+ - possibly secondary to VIELKA-I use versus diuretics -- these are on hold * positive paraproteinemia with bone marrow biopsy results noted - renal biopsy yesterday for further evaluation - await final pathology (3) Anemia: Code(s): D64.9 - Anemia, unspecified Status: Acute Assessment and Plan: * due to a combination of previous hematuria, supratherapuetic INR, hematoma, l ow platelet count, and melena * on Epogen while hospitalized * follow trend of H/H (4) Hematoma of left lower extremity: Qualifiers: Encounter type: initial encounter Qualified Code(s): S80.12XA - Contusion of left lower leg, initial encounter Code(s): S80.12XA - Contusion of left lower leg, initial encounter Status: Resolved Assessment and Plan: * status/post incision and drainage as well as debridement with skin grafting * General Surgery and Plastic Surgery following * local wound care (5) Chronic venous insufficiency of lower extremity: Code(s): I87.2 - Venous insufficiency (chronic) (peripheral) Status: Chronic Assessment and Plan: * wound care following * pain control (6) CHF (congestive heart failure): Qualifiers: Heart failure chronicity: acute on chronic Heart failure type: unspecified Qualified Code(s): I50.9 - Heart failure, unspecified Code(s): I50.9 - Heart failure, unspecified Status: Chronic Assessment and Plan: * lasix and VIELKA-I on hold * will at least need diuretics on discharge * follow respiratory status Will continue to follow. Subjective Date/time seen: 08/08/20 10:59 Appears to be doing reasonably well; tolerated renal biopsy yesterday without any issues or problems; no apparent distress noted; no events overnight or earlier this AM; no other compaints voiced. Exam Narrative: Exam Narrative: General: elderly male in NAD Heart: normal S1 and S2; no rub Lungs: clear bilaterally Abdomen: soft, nontender, nondistended, positive bowel sounds Extremities: trace - 1+ edema Skin: chronic venous stasis + multiple healing wounds present Objective Data Vital Signs Vital Signs: Vital Signs Temp Pulse Resp BP Pulse Ox 08/08/20 08:00 66 08/08/20 05:36 36.1 C L 72 16 115/51 L 98 08/07/20 21:39 88 08/07/20 21:28 36.5 C 81 16 141/68 H 100 08/07/20 14:21 60 16 119/63 99 08/07/20 14:00 36.3 C L 64 16 126/56 L 100 Intake/Output Intake/Output: Intake & Output 08/05/20 08/06/20 08/07/20 08/08/20 23:59 23:59 23:59 23:59 Intake Total 1900 2010 1850 1020 Output Total 1325 1350 2250 700 Balance 575 660 -400 320 Meds/Results Medications: Active Medications
--- NOTE | 2020-08-08 10:59 | PM.PNNEP ---
Progress Note: A&P Assessment and Plan (1) ANDRADE (acute kidney injury): Code(s): N17.9 - Acute kidney failure, unspecified Status: Acute Assessment and Plan: resolved (2) Chronic kidney disease, stage IV (severe): Code(s): N18.4 - Chronic kidney disease, stage 4 (severe) Status: Chronic Assessment and Plan: due to chronic diuretics, diabetes, age, and vascular disease baseline creatinine ~ 1.6 - 2.1mg/dl creatinine inderjit a little bit in the last couple of days associated with mildly elevated K+ - possibly secondary to VIELKA-I use versus diuretics -- these are on hold positive paraproteinemia with bone marrow biopsy results noted - renal biopsy yesterday for further evaluation - await final pathology (3) Anemia: Code(s): D64.9 - Anemia, unspecified Status: Acute Assessment and Plan: due to a combination of previous hematuria, supratherapuetic INR, hematoma, low platelet count, and melena on Epogen while hospitalized follow trend of H/H (4) Hematoma of left lower extremity: Qualifiers: Encounter type: initial encounter Qualified Code(s): S80.12XA - Contusion of left lower leg, initial encounter Code(s): S80.12XA - Contusion of left lower leg, initial encounter Status: Resolved Assessment and Plan: status/post incision and drainage as well as debridement with skin grafting General Surgery and Plastic Surgery following local wound care (5) Chronic venous insufficiency of lower extremity: Code(s): I87.2 - Venous insufficiency (chronic) (peripheral) Status: Chronic Assessment and Plan: wound care following pain control (6) CHF (congestive heart failure): Qualifiers: Heart failure chronicity: acute on chronic Heart failure type: unspecified Qualified Code(s): I50.9 - Heart failure, unspecified Code(s): I50.9 - Heart failure, unspecified Status: Chronic Assessment and Plan: lasix and VIELKA-I on hold will at least need diuretics on discharge follow respiratory status Will continue to follow. Subjective Date/time seen: 08/08/20 10:59 Appears to be doing reasonably well; tolerated renal biopsy yesterday without any issues or problems; no apparent distress noted; no events overnight or earlier this AM; no other compaints voiced. Exam Narrative: Exam Narrative: General: elderly male in NAD Heart: normal S1 and S2; no rub Lungs: clear bilaterally Abdomen: soft, nontender, nondistended, positive bowel sounds Extremities: trace - 1+ edema Skin: chronic venous stasis + multiple healing wounds present Objective Data Vital Signs Vital Signs: Vital Signs Temp Pulse Resp BP Pulse Ox 08/08/20 08:00 66 08/08/20 05:36 36.1 C L 72 16 115/51 L 98 08/07/20 21:39 88 08/07/20 21:28 36.5 C 81 16 141/68 H 100 08/07/20 14:21 60 16 119/63 99 08/07/20 14:00 36.3 C L 64 16 126/56 L 100 Intake/Output Intake/Output: Intake & Output 08/05/20 08/06/20 08/07/20 08/08/20 23:59 23:59 23:59 23:59 Intake Total 1900 2009 1850 1020 Output Total 1325 1350 2250 700 Balance 575 660 -400 320 Meds/Results Medications: Active Medications Generic Name Dose Route Start Last Admin Trade Name Freq PRN Reason Stop Dose Admin Acetaminophen 500 mg 07/18/20 11:51 08/04/20 09:12 Acetaminophen 500 Mg Tablet PO 500 mg Q6H PRN Administration Mild Pain (1-3) or Fever Hydrocodone Bitart/Acetaminophen 1 tab 08/06/20 12:55 08/07/20 22:18 Hydrocodone/Acetaminophen (*Crx) 5-325 Mg Tablet PO 1 tab Q4H PRN Administration Pain Rated 4-6 Ascorbic Acid 500 mg 07/13/20 09:00 08/08/20 07:59 Ascorbic Acid 500 Mg Tablet PO 500 mg BID MARY Administration Atorvastatin Calcium 40 mg 07/12/20 21:10 08/07/20 21:43 Atorvastatin 40 Mg Tablet PO 40 mg HS MARY Administrat
[2020-08-08 12:37] LABS: Partial Thromboplastin Time 140.9 SECONDS (22.3-36.8)
--- NOTE | 2020-08-08 12:39 | PM.IMPN ---
Progress Note: A&P Assessment and Plan (1) Hematoma of left lower extremity: Qualifiers: Encounter type: initial encounter Qualified Code(s): S80.12XA - Contusion of left lower leg, initial encounter Code(s): S80.12XA - Contusion of left lower leg, initial encounter Status: Resolved Assessment and Plan: He had a large, dark purple hematoma of left posterior calf on admisison related to recent trauma from a fall just prior to admission. The area was exquisitely tender and leg was edematous. This is likely source for anemia. Left lower extremity CT demonstrates large subcutaneous hematoma. General surgery was consulted and patient now s/p debridement of left calf hematoma on 07/18/20. Patient tolerated the procedure well. Plastic surgery consulted and patient now s/p skin grafting 07/27. Plan for SNF placement at discharge. Continue dressing changes per plastic surgery (2) Acute blood loss anemia: Code(s): D62 - Acute posthemorrhagic anemia Status: Acute Assessment and Plan: Acute on chronic normocytic anemia. He was recently hospitalized in May 2020 for gross heamturia and underwent blood transfusion at that time. Hemoglobin 5.8 on admission here and has required a total of 6 units pRBC since. His last transfusion was on 07/18. Suspected source of anemia this admission is from posterior left calf hematoma. Additional concern for GI component given reported episode of melena prior to presentation and positive fecal occult blood test but no further testing required per GI. Hgb stable recently in the 8 range. Continue to monitor H&H closely (3) Occult blood in stools: Code(s): R19.5 - Other fecal abnormalities Status: Acute Assessment and Plan: Reports of melena prior to presentation. Fecal occult blood test positive on 07/16/2020. Gastroenterology is following and input is appreciated. EGD was being considered but left leg hematoma appears to be more acute source of blood loss. Continue Protonix daily. Per GI, no further testing required. (4) Aortic valve replaced: Code(s): Z95.2 - Presence of prosthetic heart valve Status: Acute Assessment and Plan: Patient is maintained on chronic warfarin for atrial fibrillation and for a mechanical aortic valve. INR goal is 2.0-3.0. INR was 3.4 at presentation. He received 1 unit FFP on 07/15 to bring down INR for procedure planning. Heparin drip resumed post skin grafting procedure; Coumadin resumed but held for BMB and then for the renal biopsy. Continue Heparin drip. Coumadin resumed. Daily INRs. (5) Acute on chronic renal failure: Qualifiers: Acute renal failure type: unspecified Chronic kidney disease stage: stage 3 (moderate) Chronic kidney disease stage 3 subtype: stage 3b (GFR 30-44) Qualified Code(s): N17.9 - Acute kidney failure, unspecified; N18.32 - Chronic kidney disease, stage 3b Code(s): N17.9 - Acute kidney failure, unspecified; N18.9 - Chronic kidney disease, unspecified Status: Acute Assessment and Plan: Baseline creatinine appears to be variable around 2.0 but stable. Creatinine upon presentation is 2.7. Suspect acute injury is multifactorial when considering diuresis, relative hypotension, and profound anemia. Renal US showed cortical thinning without hydronephrosis. SIF with IgG kappa monclonal bands and bone marrow revealed smoldering myeloma. Kidney biopsy performed 08/07. Creatine climbed to 2.8 so Lasix and ACEI held. Cr better at 2.4 today. Follow. (6) CHF (congestive heart failure): Qualifiers: Heart failure chronicity: acute on chronic Heart failure type: unspecified Qualified Code(s): I50.9 - Heart failure, unspecified Code(s): I50.9 - Heart failure, unspecified Status: Chronic Assessment and Plan: Last echo in October 2019 showed reduced EF of 30-35%. BNP was elevated at 6060 but he appeared eu
[2020-08-08 12:57] LABS: Glucose Point of Care 129 (65-105)
[2020-08-08 14:00] VITALS: BP 124/58; PULSE 68; RESP 18; TEMP 36.6; O2SAT 99
[2020-08-08] MEDS: WARFARIN (*PBKC) 4 MG TABLET PO (17:32)
[2020-08-08] MEDS: WARFARIN (*PBKC) 2.5 MG TABLET PO (17:32)
[2020-08-08 17:48] LABS: Glucose Point of Care 122 (65-105)
[2020-08-08 18:58] LABS: Partial Thromboplastin Time 68.2 SECONDS (22.3-36.8)
[2020-08-08 20:46] LABS: SARS-CoV-2 RNA PCR Negative
[2020-08-08] MEDS: SENNOSIDES 8.6 MG TABLET 17.2 MG PO (20:52)
[2020-08-08 20:53] VITALS: PULSE 80
[2020-08-08] MEDS: traZODone HCL 25 MG TABLET PO (20:53)
[2020-08-08] MEDS: METOPROLOL TARTRATE 12.5 MG TABLET PO (20:53)
[2020-08-08] MEDS: MELATONIN 3 MG TABLET 6 MG PO (20:53)
[2020-08-08] MEDS: ATORVASTATIN 40 MG TABLET PO (20:54)
[2020-08-08 21:11] LABS: Glucose Point of Care 155 (65-105)
[2020-08-08 21:21] VITALS: BP 131/52; PULSE 79; RESP 16; TEMP 36.1; O2SAT 98
[2020-08-09] MEDS: HEPARIN SOD/D5W 100 UNITS/ML 25,000 UNITS/250 ML BAG 14 UNITS IV CONT ×2 (00:11→16:29)
--- NOTE | 2020-08-09 04:10 | PC.NURSE ---
Ptt not available, no fax received for results, Lab notified.
[2020-08-09 04:54] LABS: Partial Thromboplastin Time 123.8 SECONDS (22.3-36.8)
[2020-08-09 05:05] VITALS: BP 128/65; PULSE 84; RESP 16; TEMP 36.1; O2SAT 96
[2020-08-09 05:44] LABS: Hematocrit 26.6 % (42.0-52.0); Hemoglobin 8.3 g/dL (14.0-18.0); Mean Corpuscular HGB Conc 31.2 g/dl (32-36); Mean Corpuscular Hemoglobin 28.5 pg (26-34); Mean Corpuscular Volume 91.4 fl (80-100); Platelet Count Result 122 k/mm3 (150-375); Red Blood Count 2.91 M/mm3 (4.6-6.20); Red Cell Distribution Width 17.3 % (11.5-14.5); White Blood Count 6.8 K/mm3 (4.5-10.0)
[2020-08-09 05:54] LABS: Albumin Level 3.7 g/dL (3.5-5.1); Anion Gap 5 mmol/L (8-16); Blood Urea Nitrogen 61 mg/dL (9-20); Calcium 9.5 mg/dL (8.4-10.2); Carbon Dioxide 25 mmol/L (22-30); Chloride 103 mmol/L (98-107); Estimated CRCL calculation 28 ml/min; Estimated Glomerular Filt Rate 28; Glucose 154 mg/dL (75-110); Magnesium 1.7 mg/dL (1.6-2.3); Phosphorus 4.1 mg/dL (2.5-4.5); Potassium 5.5 mmol/L (3.4-5.0); Sodium 133 mmol/L (137-145)
[2020-08-09 08:10] LABS: Glucose Point of Care 137 (65-105)
--- NOTE | 2020-08-09 08:24 | PM.IMPN ---
Progress Note: A&P Assessment and Plan (1) Hematoma of left lower extremity: Qualifiers: Encounter type: initial encounter Qualified Code(s): S80.12XA - Contusion of left lower leg, initial encounter Code(s): S80.12XA - Contusion of left lower leg, initial encounter Status: Resolved Assessment and Plan: He had a large, dark purple hematoma of left posterior calf on admisison related to recent trauma from a fall just prior to admission. The area was exquisitely tender and leg was edematous. This is likely source for acute anemia. Left lower extremity CT demonstrates large subcutaneous hematoma. General surgery was consulted and patient now s/p debridement of left calf hematoma on 07/18/20. Patient tolerated the procedure well. Plastic surgery consulted and patient now s/p skin grafting 07/27. Plan for SNF placement at discharge. Continue dressing changes per plastic surgery. (2) Acute blood loss anemia: Code(s): D62 - Acute posthemorrhagic anemia Status: Acute Assessment and Plan: Acute on chronic normocytic anemia. He was recently hospitalized in May 2020 for gross heamturia and underwent blood transfusion at that time. Hemoglobin 5.8 on admission here and has required a total of 6 units pRBC since. His last transfusion was on 07/18. Suspected source of anemia this admission is from posterior left calf hematoma. Additional concern for GI component given reported episode of melena prior to presentation and positive fecal occult blood test but no further testing required per GI. Hgb stable recently in the 8 range. Continue to monitor H&H closely (3) Occult blood in stools: Code(s): R19.5 - Other fecal abnormalities Status: Acute Assessment and Plan: Reports of melena prior to presentation. Fecal occult blood test positive on 07/16/2020. Gastroenterology is following and input is appreciated. EGD was being considered but left leg hematoma appears to be more acute source of blood loss. Continue Protonix daily. Per GI, no further testing required. (4) Aortic valve replaced: Code(s): Z95.2 - Presence of prosthetic heart valve Status: Acute Assessment and Plan: Patient is maintained on chronic warfarin for atrial fibrillation and for a mechanical aortic valve. INR goal is 2.0-3.0. INR was 3.4 at presentation. He received 1 unit FFP on 07/15 to bring down INR for procedure planning. Heparin drip resumed post skin grafting procedure; Coumadin resumed but held for BMB and then for the renal biopsy. Patient has completed workup. Heparin drip was continued and Coumadin resumed. INR still subtherapeutic. Continue daily INRs. Extra Coumadin today. (5) Acute on chronic renal failure: Qualifiers: Acute renal failure type: unspecified Chronic kidney disease stage: stage 3 (moderate) Chronic kidney disease stage 3 subtype: stage 3b (GFR 30-44) Qualified Code(s): N17.9 - Acute kidney failure, unspecified; N18.32 - Chronic kidney disease, stage 3b Code(s): N17.9 - Acute kidney failure, unspecified; N18.9 - Chronic kidney disease, unspecified Status: Acute Assessment and Plan: Baseline creatinine appears to be variable around 2.0 but stable. Creatinine upon presentation is 2.7. Suspect acute injury is multifactorial when considering diuresis, relative hypotension, and profound anemia. Renal US showed cortical thinning without hydronephrosis. SIF with IgG kappa monoclonal bands and bone marrow revealed smoldering myeloma. Kidney biopsy performed 08/07. Creatine climbed to 2.8 so Lasix and ACEI held. Cr better at 2.3 today. Potassium 5.5 today for unclear reasons. Lab error? Repeat potassium later today. Low-potassium diet. Review medications. Repeat potassium 5.2. Continue to follow. (6) CHF (congestive heart failure): Qualifiers: Heart failure chronicity: acute on chronic Heart failure typ
[2020-08-09] MEDS: MAGNESIUM OXIDE 400 MG TABLET PO (08:25)
[2020-08-09] MEDS: FERROUS SULFATE 324 MG TABLET PO (08:25)
[2020-08-09] MEDS: DULoxetine HCL 30 MG CAPSULE.DR PO (08:25)
[2020-08-09] MEDS: hydrOXYzine HCL 25 MG TABLET PO ×4 (08:25→21:11)
[2020-08-09] MEDS: ASCORBIC ACID 500 MG TABLET PO ×2 (08:25→16:24)
[2020-08-09] MEDS: FINASTERIDE 5 MG TABLET PO (08:25)
[2020-08-09 08:26] VITALS: PULSE 80
[2020-08-09] MEDS: MULTIVITAMINS THERAPEUTIC TAB (*BKC) 1 TABLET PO (08:26)
[2020-08-09] MEDS: METOPROLOL TARTRATE 12.5 MG TABLET PO ×2 (08:26→21:11)
[2020-08-09] MEDS: PANTOPRAZOLE 40 MG TABLET PO ×2 (08:26→21:11)
[2020-08-09] MEDS: TAMSULOSIN HCL 0.4 MG CAPSULE PO (08:26)
[2020-08-09] MEDS: polyethylene glycoL 3350 17 GM POWD.PACK PO (08:26)
[2020-08-09] MEDS: PREGABALIN (*CRX) 75 MG CAPSULE PO ×2 (08:26→16:26)
[2020-08-09 09:12] LABS: INR 1.3; Prothrombin Time 16.5 Seconds (11.1-14.7)
[2020-08-09 09:26] LABS: Partial Thromboplastin Time 82.3 SECONDS (22.3-36.8)
[2020-08-09] MEDS: SILVERGEL (ELTA) 45 ML 1 APPLIC TOPICAL (11:30)
[2020-08-09] MEDS: EUCERIN CREAM 120 GM JAR 1 APPLIC TOPICAL ×2 (11:31→16:24)
[2020-08-09 11:44] LABS: Glucose Point of Care 129 (65-105)
--- NOTE | 2020-08-09 12:09 | P.PNNP_ITS ---
Progress Note: A&P Assessment and Plan (1) ANDRADE (acute kidney injury): Code(s): N17.9 - Acute kidney failure, unspecified Status: Acute Assessment and Plan: * resolved (2) Chronic kidney disease, stage IV (severe): Code(s): N18.4 - Chronic kidney disease, stage 4 (severe) Status: Chronic Assessment and Plan: * due to chronic diuretics, diabetes, age, and vascular disease * baseline creatinine ~ 1.6 - 2.1mg/dl * creatinine inderjit a little bit in the last couple of days associated with mildly elevated K+ - possibly secondary to VIELKA-I use versus diuretics -- these are on hold * positive paraproteinemia with bone marrow biopsy results noted - renal biopsy yesterday for further evaluation (3) Hyperkalemia: Code(s): E87.5 - Hyperkalemia Status: Acute Assessment and Plan: * etiology? -- dietary intake versus underlying CKD versus mild hemolysis versus lab error?? * agree with addition of low potassium diet * follow trend (4) Anemia: Code(s): D64.9 - Anemia, unspecified Status: Acute Assessment and Plan: * due to a combination of previous hematuria, supratherapuetic INR, hematoma, low platelet count, and melena * on Epogen while hospitalized * follow trend of H/H (5) Hematoma of left lower extremity: Qualifiers: Encounter type: initial encounter Qualified Code(s): S80.12XA - Contusion of left lower leg, initial encounter Code(s): S80.12XA - Contusion of left lower leg, initial encounter Status: Resolved Assessment and Plan: * status/post incision and drainage as well as debridement with skin grafting * General Surgery and Plastic Surgery following * local wound care (6) Chronic venous insufficiency of lower extremity: Code(s): I87.2 - Venous insufficiency (chronic) (peripheral) Status: Chronic Assessment and Plan: * wound care following * pain control (7) CHF (congestive heart failure): Qualifiers: Heart failure chronicity: acute on chronic Heart failure type: unspe cified Qualified Code(s): I50.9 - Heart failure, unspecified Code(s): I50.9 - Heart failure, unspecified Status: Chronic Assessment and Plan: * lasix and VIELKA-I on hold * will at least need diuretics on discharge - would not be opposed to restart today or tomorrow * follow respiratory status Will continue to follow. Subjective Date/time seen: 08/09/20 12:09 No acute issues or concerns to report other than he did not sleepy well last night; no other events overnight or earlier this AM; continue to have good urine output; remains hemodynamically stable. Exam Narrative: Exam Narrative: General: elderly male in NAD Heart: normal S1 and S2; no rub Lungs: clear bilaterally Abdomen: soft, nontender, nondistended, positive bowel sounds Extremities: trace - 1+ edema Skin: chronic venous stasis + multiple healing wounds noted Objective Data Vital Signs Vital Signs: Vital Signs Temp Pulse Resp BP Pulse Ox 08/09/20 08:26 80 08/09/20 05:05 36.1 C L 84 16 128/65 96 08/08/20 21:21 36.1 C L 79 16 131/52 L 98 08/08/20 20:53 80 08/08/20 14:00 36.6 C 68 18 124/58 L 99 Intake/Output Intake/Output: Intake & Output 08/06/20 08/07/20 08/08/20 08/09/20
--- NOTE | 2020-08-09 12:09 | PM.PNNEP ---
Progress Note: A&P Assessment and Plan (1) ANDRADE (acute kidney injury): Code(s): N17.9 - Acute kidney failure, unspecified Status: Acute Assessment and Plan: resolved (2) Chronic kidney disease, stage IV (severe): Code(s): N18.4 - Chronic kidney disease, stage 4 (severe) Status: Chronic Assessment and Plan: due to chronic diuretics, diabetes, age, and vascular disease baseline creatinine ~ 1.6 - 2.1mg/dl creatinine inderjit a little bit in the last couple of days associated with mildly elevated K+ - possibly secondary to VIELKA-I use versus diuretics -- these are on hold positive paraproteinemia with bone marrow biopsy results noted - renal biopsy yesterday for further evaluation (3) Hyperkalemia: Code(s): E87.5 - Hyperkalemia Status: Acute Assessment and Plan: etiology? -- dietary intake versus underlying CKD versus mild hemolysis versus lab error?? agree with addition of low potassium diet follow trend (4) Anemia: Code(s): D64.9 - Anemia, unspecified Status: Acute Assessment and Plan: due to a combination of previous hematuria, supratherapuetic INR, hematoma, low platelet count, and melena on Epogen while hospitalized follow trend of H/H (5) Hematoma of left lower extremity: Qualifiers: Encounter type: initial encounter Qualified Code(s): S80.12XA - Contusion of left lower leg, initial encounter Code(s): S80.12XA - Contusion of left lower leg, initial encounter Status: Resolved Assessment and Plan: status/post incision and drainage as well as debridement with skin grafting General Surgery and Plastic Surgery following local wound care (6) Chronic venous insufficiency of lower extremity: Code(s): I87.2 - Venous insufficiency (chronic) (peripheral) Status: Chronic Assessment and Plan: wound care following pain control (7) CHF (congestive heart failure): Qualifiers: Heart failure chronicity: acute on chronic Heart failure type: unspecified Qualified Code(s): I50.9 - Heart failure, unspecified Code(s): I50.9 - Heart failure, unspecified Status: Chronic Assessment and Plan: lasix and VIELKA-I on hold will at least need diuretics on discharge - would not be opposed to restart today or tomorrow follow respiratory status Will continue to follow. Subjective Date/time seen: 08/09/20 12:09 No acute issues or concerns to report other than he did not sleepy well last night; no other events overnight or earlier this AM; continue to have good urine output; remains hemodynamically stable. Exam Narrative: Exam Narrative: General: elderly male in NAD Heart: normal S1 and S2; no rub Lungs: clear bilaterally Abdomen: soft, nontender, nondistended, positive bowel sounds Extremities: trace - 1+ edema Skin: chronic venous stasis + multiple healing wounds noted Objective Data Vital Signs Vital Signs: Vital Signs Temp Pulse Resp BP Pulse Ox 08/09/20 08:26 80 08/09/20 05:05 36.1 C L 84 16 128/65 96 08/08/20 21:21 36.1 C L 79 16 131/52 L 98 08/08/20 20:53 80 08/08/20 14:00 36.6 C 68 18 124/58 L 99 Intake/Output Intake/Output: Intake & Output 08/06/20 08/07/20 08/08/20 08/09/20 23:59 23:59 23:59 23:59 Intake Total 20090 2180 1030 Output Total 1350 2250 1150 900 Balance 660 -400 1030 130 Meds/Results Medications: Active Medications Generic Name Dose Route Start Last Admin Trade Name Freq PRN Reason Stop Dose Admin Acetaminophen 500 mg 07/18/20 11:51 08/04/20 09:12 Acetaminophen 500 Mg Tablet PO 500 mg Q6H PRN Administration Mild Pain (1-3) or Fever Hydrocodone Bitart/Acetaminophen 1 tab 08/06/20 12:55 08/07/20 22:18 Hydrocodone/Acetaminophen (*Crx) 5-325 Mg Tablet PO 1 tab Q4H PRN Administration Pain Rated 4-6 [facility]
[2020-08-09 12:25] LABS: Potassium 5.2 mmol/L (3.4-5.0)
--- NOTE | 2020-08-09 12:51 | WPDONCPN ---
Progress Note: A/P - Additional Plan Multiple myeloma status post bone marrow biopsy. Bone marrow biopsy showed 20-30% involvement of bone marrow with plasma cell dyscrasia. Renal biopsy showed no evidence of multiple myeloma. Skeletal survey is also negative for any lytic or blastic lesions. No treatment for myeloma is needed at this time. We will watch and see him in the office for further follow-up. Multifactorial anemia. This is secondary to anemia of chronic kidney disease and hematoma. Patient is already on Epogen. Patient will follow-up in the office for continuation of Procrit treatment. - Time Spent With Patient Total time spent is greater than 50% in coordination of care (as documented) at patient's floor/unit and/or counseling patient: 15 - 25 minutes Subjective Interval history: Multiple myeloma Normocytic anemia Acute renal insufficiency Review of Systems - Review of Systems Patient seems to be quite comfortable. Denies any excessive tiredness and fatigue. No bleeding and bruising. No fevers and chills. - Neurologic Reports system reviewed and no additional complaints, except as documented, Reports hearing normal, Reports confusion, Reports weakness, Denies headache(s) Exam Vital signs: Mariza Elizondo. Assessment of coma and impaired consciousness. A practical scale. Lancet 1974; 2:81-4. Narrative: Lungs are clear to auscultation bilaterally Cardiovascular regular rate rhythm no murmurs Abdomen soft nontender nondistended bowel sounds are positive Extremities no edema PN: Objective Data - Labs CBC & Chem 7: 08/09/20 05:25 08/09/20 11:59 Labs: Laboratory Results - last 24 hr 08/08/20 08/08/20 08/08/20 01:03 12:55 17:29 WBC RBC Hgb Hct MCV MCH MCHC RDW Plt Count MPV PT INR APTT Sodium Potassium Chloride Carbon Dioxide Anion Gap BUN Creatinine Estim Creat Clear Calc Estimated GFR Glucose POC Capillary Glucose 129 H 122 H Calcium Phosphorus Magnesium Albumin SARS-CoV-2 RNA (RT-PCR) Negative 08/08/20 08/08/20 08/09/20 18:29 21:08 00:35 WBC RBC Hgb Hct MCV MCH MCHC RDW Plt Count MPV PT INR APTT 68.2 H 123.8 H Sodium Potassium Chloride Carbon Dioxide Anion Gap BUN Creatinine Estim Creat Clear Calc Estimated GFR Glucose POC Capillary Glucose 155 H Calcium Phosphorus Magnesium Albumin SARS-CoV-2 RNA (RT-PCR) 08/09/20 08/09/20 08/09/20 05:25 05:25 08:02 WBC 6.8 RBC 2.91 L Hgb 8.3 L Hct 26.6 L MCV 91.4 MCH 28.5 MCHC 31.2 L RDW 17.3 H Plt Count 122 L MPV 11.0 H PT INR APTT Sodium 133 L Potassium 5.5 H Chloride 103 Carbon Dioxide 25 Anion Gap 5 L BUN 61 H Creatinine 2.30 H Estim Creat Clear Calc 28 Estimated GFR 28 L Glucose 154 H POC Capillary Glucose 137 H Calcium 9.5 Phosphorus 4.1 Magnesium 1.7 Albumin 3.7 SARS-CoV-2 RNA (RT-PCR) 08/09/20 08/09/20 08/09/20 08:32 08:32 11:34 WBC RBC Hgb Hct MCV MCH MCHC RDW Plt Count MPV PT 16.5 H INR 1.3 APTT 82.3 H Sodium Potassium Chloride Carbon Dioxide Anion Gap BUN Creatinine Estim Creat Clear Calc Estimated GFR Glucose POC Capillary Glucose 129 H Calcium Phosphorus Magnesium Albumin SARS-CoV-2 RNA (RT-PCR) 08/09/20 11:59 WBC RBC Hgb Hct MCV MCH MCHC RDW Plt Count MPV PT INR APTT Sodium Potassium 5.2 H Chloride Carbon Dioxide Anion Gap BUN Creatinine Estim Creat Clear Calc Estimated GFR Glucose POC Capillary Glucose Calcium Phosphorus Magnesium Albumin SARS-CoV-2 RNA (RT-PCR)
[2020-08-09] MEDS: EPOETIN ALFA-EPBX 10,000 UNITS/ML VIAL 10000 UNITS SUB-Q (13:27)
[2020-08-09 14:00] VITALS: BP 118/64; PULSE 82; RESP 16; TEMP 36.4; O2SAT 100
[2020-08-09 14:54] LABS: Partial Thromboplastin Time 65.7 SECONDS (22.3-36.8)
[2020-08-09] MEDS: HEPARIN SODIUM 5,000 UNITS/ML VIAL 3500 UNITS IV PUSH (15:10)
[2020-08-09] MEDS: WARFARIN (*PBKC) 2.5 MG TABLET PO (16:24)
[2020-08-09] MEDS: WARFARIN (*PBKC) 4 MG TABLET PO (16:25)
[2020-08-09 17:21] LABS: Glucose Point of Care 177 (65-105)
[2020-08-09 21:11] VITALS: PULSE 85
[2020-08-09] MEDS: MELATONIN 3 MG TABLET 6 MG PO (21:11)
[2020-08-09] MEDS: ATORVASTATIN 40 MG TABLET PO (21:11)
[2020-08-09] MEDS: SENNOSIDES 8.6 MG TABLET 17.2 MG PO (21:11)
[2020-08-09] MEDS: traZODone HCL 25 MG TABLET PO (21:12)
[2020-08-09 22:00] VITALS: BP 126/68; PULSE 85; RESP 20; TEMP 36.8; O2SAT 99
[2020-08-10 00:01] LABS: Glucose Point of Care 119 (65-105)
[2020-08-10 05:32] LABS: Hematocrit 25.3 % (42.0-52.0); Mean Corpuscular HGB Conc 31.6 g/dl (32-36); Mean Corpuscular Hemoglobin 28.2 pg (26-34); Mean Corpuscular Volume 89.1 fl (80-100); Mean Platelet Volume 11.3 fl (7.4-10.4); Platelet Count Result 117 k/mm3 (150-375); Red Blood Count 2.84 M/mm3 (4.6-6.20); Red Cell Distribution Width 17.3 % (11.5-14.5); White Blood Count 6.3 K/mm3 (4.5-10.0)
[2020-08-10 05:43] LABS: Anion Gap 4 mmol/L (8-16); Blood Urea Nitrogen 57 mg/dL (9-20); Calcium 9.2 mg/dL (8.4-10.2); Carbon Dioxide 26 mmol/L (22-30); Chloride 104 mmol/L (98-107); Estimated CRCL calculation 28 ml/min; Estimated Glomerular Filt Rate 28; Glucose 118 mg/dL (75-110); Potassium 5.8 mmol/L (3.4-5.0); Sodium 134 mmol/L (137-145)
[2020-08-10 05:53] LABS: INR 1.6; Prothrombin Time 19.4 Seconds (11.1-14.7)
[2020-08-10 05:58] LABS: Partial Thromboplastin Time 100.3 SECONDS (22.3-36.8)
[2020-08-10 06:00] VITALS: BP 133/53; PULSE 52; RESP 20; TEMP 35.9; O2SAT 98
[2020-08-10 07:28] LABS: Glucose Point of Care 121 (65-105)
[2020-08-10] MEDS: SODIUM POLYSTYRENE SULFONONATE 15 GM/60 ML BTL PO (07:46)
[2020-08-10] MEDS: FERROUS SULFATE 324 MG TABLET PO (07:48)
[2020-08-10] MEDS: DULoxetine HCL 30 MG CAPSULE.DR PO (07:49)
[2020-08-10] MEDS: PANTOPRAZOLE 40 MG TABLET PO ×2 (07:49→20:25)
[2020-08-10] MEDS: MULTIVITAMINS THERAPEUTIC TAB (*BKC) 1 TABLET PO (07:49)
[2020-08-10] MEDS: FINASTERIDE 5 MG TABLET PO (07:49)
[2020-08-10] MEDS: polyethylene glycoL 3350 17 GM POWD.PACK PO (07:49)
[2020-08-10] MEDS: PREGABALIN (*CRX) 75 MG CAPSULE PO ×2 (07:49→17:02)
[2020-08-10] MEDS: hydrOXYzine HCL 25 MG TABLET PO ×3 (07:49→17:02)
[2020-08-10] MEDS: ASCORBIC ACID 500 MG TABLET PO ×2 (07:49→17:02)
[2020-08-10 07:50] VITALS: PULSE 62
[2020-08-10] MEDS: TAMSULOSIN HCL 0.4 MG CAPSULE PO (07:50)
[2020-08-10] MEDS: MAGNESIUM OXIDE 400 MG TABLET PO (07:50)
[2020-08-10] MEDS: EUCERIN CREAM 120 GM JAR 1 APPLIC TOPICAL ×2 (07:55→17:02)
[2020-08-10] MEDS: SILVERGEL (ELTA) 45 ML 1 APPLIC TOPICAL (07:55)
[2020-08-10 11:35] LABS: Glucose Point of Care 139 (65-105)
[2020-08-10 11:39] LABS: Partial Thromboplastin Time 80.7 SECONDS (22.3-36.8)
[2020-08-10 12:27] LABS: Potassium 5.7 mmol/L (3.4-5.0)
--- NOTE | 2020-08-10 13:53 | PC.NURSE ---
[employer] Supervisor called Dr. Hicks made aware of potassium level, MD reports will review it. Sobia Youssef RN
[2020-08-10 14:00] VITALS: BP 130/60; PULSE 76; RESP 16; TEMP 36.4; O2SAT 98
[2020-08-10] MEDS: ACETAMINOPHEN 500 MG TABLET PO (14:04)
--- NOTE | 2020-08-10 14:45 | P.PNNP_ITS ---
Progress Note: A&P Assessment and Plan (1) ANDRADE (acute kidney injury): Code(s): N17.9 - Acute kidney failure, unspecified Status: Acute Assessment and Plan: * resolved (2) Chronic kidney disease, stage IV (severe): Code(s): N18.4 - Chronic kidney disease, stage 4 (severe) Status: Chronic Assessment and Plan: * due to chronic diuretics, diabetes, age, and vascular disease * baseline creatinine ~ 1.6 - 2.1mg/dl * creatinine inderjit a little bit in the last couple of days associated with mildly elevated K+ - possibly secondary to VIELKA-I use versus diuretics -- these are on hold * positive paraproteinemia with bone marrow biopsy results noted - renal biopsy with evidence of multiple myeloma (3) Hyperkalemia: Code(s): E87.5 - Hyperkalemia Status: Acute Assessment and Plan: * etiology? - dietary intake versus underlying CKD versus mild hemolysis?? * added low potassium diet already * elevated again this AM -- s/p kayexalate * did previous diuretic use keep this issue controlled(?) * follow trend (4) Anemia: Code(s): D64.9 - Anemia, unspecified Status: Acute Assessment and Plan: * due to a combination of previous hematuria, supratherapuetic INR, hematoma, low platelet count, and melena * on Epogen while hospitalized * follow trend of H/H (5) Hematoma of left lower extremity: Qualifiers: Encounter type: initial encounter Qualified Code(s): S80.12XA - Co ntusion of left lower leg, initial encounter Code(s): S80.12XA - Contusion of left lower leg, initial encounter Status: Resolved Assessment and Plan: * status/post incision and drainage as well as debridement with skin grafting * General Surgery and Plastic Surgery following * local wound care (6) Chronic venous insufficiency of lower extremity: Code(s): I87.2 - Venous insufficiency (chronic) (peripheral) Status: Chronic Assessment and Plan: * wound care following * pain control (7) CHF (congestive heart failure): Qualifiers: Heart failure chronicity: acute on chronic Heart failure type: unspecified Qualified Code(s): I50.9 - Heart failure, unspecified Code(s): I50.9 - Heart failure, unspecified Status: Chronic Assessment and Plan: * lasix and VIELKA-I on hold * will at least need diuretics on discharge - would not be opposed to restart today or tomorrow * follow respiratory status Will continue to follow. Subjective Date/time seen: 08/10/20 14:45 Appears reasonably well at the time of my visit; no apparent distress although reported had some shortness of breath earlier this today but this has since resolved; no other events/issues overnight or earlier this AM; still running high potassium levels by AM labs (received kayexalate earlier today). Exam Narrative: Exam Narrative: General: elderly male in NAD Heart: normal S1 and S2; no rub Lungs: clear bilaterally Abdomen: soft, nontender, nondistended, positive bowel sounds Extremities: trace - 1+ edema Skin: chronic venous stasis + multiple healing wounds (LEs) Objective Data Vital Signs Vital Signs: Vital Signs Temp Pulse Resp BP Pulse Ox 08/10/20 14:00 36.4 C L 76 16 130/60 98 08/10/20 07:50 62 08/10/20 06:00 35.9 C L 52 L 20 133/53 L 98
--- NOTE | 2020-08-10 14:45 | PM.PNNEP ---
Progress Note: A&P Assessment and Plan (1) ANDRADE (acute kidney injury): Code(s): N17.9 - Acute kidney failure, unspecified Status: Acute Assessment and Plan: resolved (2) Chronic kidney disease, stage IV (severe): Code(s): N18.4 - Chronic kidney disease, stage 4 (severe) Status: Chronic Assessment and Plan: due to chronic diuretics, diabetes, age, and vascular disease baseline creatinine ~ 1.6 - 2.1mg/dl creatinine inderjit a little bit in the last couple of days associated with mildly elevated K+ - possibly secondary to VIELKA-I use versus diuretics -- these are on hold positive paraproteinemia with bone marrow biopsy results noted - renal biopsy with evidence of multiple myeloma (3) Hyperkalemia: Code(s): E87.5 - Hyperkalemia Status: Acute Assessment and Plan: etiology? - dietary intake versus underlying CKD versus mild hemolysis?? added low potassium diet already elevated again this AM -- s/p kayexalate did previous diuretic use keep this issue controlled(?) follow trend (4) Anemia: Code(s): D64.9 - Anemia, unspecified Status: Acute Assessment and Plan: due to a combination of previous hematuria, supratherapuetic INR, hematoma, low platelet count, and melena on Epogen while hospitalized follow trend of H/H (5) Hematoma of left lower extremity: Qualifiers: Encounter type: initial encounter Qualified Code(s): S80.12XA - Contusion of left lower leg, initial encounter Code(s): S80.12XA - Contusion of left lower leg, initial encounter Status: Resolved Assessment and Plan: status/post incision and drainage as well as debridement with skin grafting General Surgery and Plastic Surgery following local wound care (6) Chronic venous insufficiency of lower extremity: Code(s): I87.2 - Venous insufficiency (chronic) (peripheral) Status: Chronic Assessment and Plan: wound care following pain control (7) CHF (congestive heart failure): Qualifiers: Heart failure chronicity: acute on chronic Heart failure type: unspecified Qualified Code(s): I50.9 - Heart failure, unspecified Code(s): I50.9 - Heart failure, unspecified Status: Chronic Assessment and Plan: lasix and VIELKA-I on hold will at least need diuretics on discharge - would not be opposed to restart today or tomorrow follow respiratory status Will continue to follow. Subjective Date/time seen: 08/10/20 14:45 Appears reasonably well at the time of my visit; no apparent distress although reported had some shortness of breath earlier this today but this has since resolved; no other events/issues overnight or earlier this AM; still running high potassium levels by AM labs (received kayexalate earlier today). Exam Narrative: Exam Narrative: General: elderly male in NAD Heart: normal S1 and S2; no rub Lungs: clear bilaterally Abdomen: soft, nontender, nondistended, positive bowel sounds Extremities: trace - 1+ edema Skin: chronic venous stasis + multiple healing wounds (LEs) Objective Data Vital Signs Vital Signs: Vital Signs Temp Pulse Resp BP Pulse Ox 08/10/20 14:00 36.4 C L 76 16 130/60 98 08/10/20 07:50 62 08/10/20 06:00 35.9 C L 52 L 20 133/53 L 98 08/09/20 22:00 36.8 C 85 20 126/68 99 08/09/20 21:11 85 Intake/Output Intake/Output: Intake & Output 08/07/20 08/08/20 08/09/20 08/10/20 23:59 23:59 23:59 23:59 Intake Total 1850 2180 2600 1040 Output Total 2250 1150 2475 1000 Balance -400 1030 125 40 Meds/Results Medications: Active Medications Generic Name Dose Route Start Last Admin Trade Name Freq PRN Reason Stop Dose Admin Acetaminophen 500 mg 07/18/20 11:51 08/10/20 14:04 Acetaminophen 500 Mg Tablet PO 500 mg Q6H PRN Administration Mild Pain (1-3) or
[2020-08-10] MEDS: HEPARIN SOD/D5W 100 UNITS/ML 25,000 UNITS/250 ML BAG 11 UNITS IV CONT (15:50)
[2020-08-10] MEDS: WARFARIN (*PBKC) 2.5 MG TABLET PO ×2 (17:02→19:43)
[2020-08-10 17:27] LABS: Glucose Point of Care 162 (65-105)
--- NOTE | 2020-08-10 18:33 | PM.IMPN ---
Progress Note: A&P Assessment and Plan (1) Hematoma of left lower extremity: Qualifiers: Encounter type: initial encounter Qualified Code(s): S80.12XA - Contusion of left lower leg, initial encounter Code(s): S80.12XA - Contusion of left lower leg, initial encounter Status: Resolved Assessment and Plan: He had a large, dark purple hematoma of left posterior calf on admission related to recent trauma from a fall just prior to admission. The area was exquisitely tender and leg was edematous. This is likely source for acute anemia. Left lower extremity CT demonstrates large subcutaneous hematoma. General surgery was consulted and patient now s/p debridement of left calf hematoma on 07/18/20. Patient tolerated the procedure well. Plastic surgery consulted and patient now s/p skin grafting 07/27. Plan for SNF placement at discharge. Continue dressing changes per plastic surgery. (2) Acute blood loss anemia: Code(s): D62 - Acute posthemorrhagic anemia Status: Acute Assessment and Plan: Acute on chronic normocytic anemia. He was recently hospitalized in May 2020 for gross heamturia and underwent blood transfusion at that time. Hemoglobin 5.8 on admission here and has required a total of 6 units pRBC since. His last transfusion was on 07/18. Suspected source of anemia this admission is from posterior left calf hematoma. Additional concern for GI component given reported episode of melena prior to presentation and positive fecal occult blood test but no further testing required per GI. Hgb stable recently in the 8 range. Continue to monitor H&H closely (3) Occult blood in stools: Code(s): R19.5 - Other fecal abnormalities Status: Acute Assessment and Plan: Reports of melena prior to presentation. Fecal occult blood test positive on 07/16/2020. Gastroenterology is following and input is appreciated. EGD was being considered but left leg hematoma appears to be more acute source of blood loss. Continue Protonix daily. Per GI, no further testing required. (4) Aortic valve replaced: Code(s): Z95.2 - Presence of prosthetic heart valve Status: Acute Assessment and Plan: Patient is maintained on chronic warfarin for atrial fibrillation and for a mechanical aortic valve. INR goal is 2.0-3.0. INR was 3.4 at presentation. He received 1 unit FFP on 07/15 to bring down INR for procedure planning. Heparin drip resumed post skin grafting procedure; Coumadin resumed but held for BMB and then for the renal biopsy. Patient has completed workup. Heparin drip was continued and Coumadin resumed. INR still subtherapeutic. Continue daily INRs. Extra Coumadin today. (5) Acute on chronic renal failure: Qualifiers: Acute renal failure type: unspecified Chronic kidney disease stage: stage 3 (moderate) Chronic kidney disease stage 3 subtype: stage 3b (GFR 30-44) Qualified Code(s): N17.9 - Acute kidney failure, unspecified; N18.32 - Chronic kidney disease, stage 3b Code(s): N17.9 - Acute kidney failure, unspecified; N18.9 - Chronic kidney disease, unspecified Status: Acute Assessment and Plan: Baseline creatinine appears to be variable around 2.0 but stable. Creatinine upon presentation is 2.7. Suspect acute injury is multifactorial when considering diuresis, relative hypotension, and profound anemia. Renal US showed cortical thinning without hydronephrosis. SIF with IgG kappa monoclonal bands and bone marrow revealed smoldering myeloma. Kidney biopsy performed 08/07 just showing ATN. Creatine climbed to 2.8 so Lasix and ACEI held. Cr better at 2.3 today and stable. (6) Hyperkalemia: Code(s): E87.5 - Hyperkalemia Status: Acute Assessment and Plan: Potassium up to 5.8 probably related to CKD. Low-potassium diet started. No obvious medication side effect. Stop MVI. (7) CHF (congestive heart failure):
[2020-08-10] MEDS: FUROSEMIDE 20 MG TABLET PO (19:43)
[2020-08-10 20:25] VITALS: PULSE 94
[2020-08-10] MEDS: METOPROLOL TARTRATE 12.5 MG TABLET PO (20:25)
[2020-08-10] MEDS: traZODone HCL 25 MG TABLET PO (20:25)
[2020-08-10] MEDS: MELATONIN 3 MG TABLET 6 MG PO (20:26)
[2020-08-10] MEDS: ATORVASTATIN 40 MG TABLET PO (20:26)
[2020-08-10] MEDS: SENNOSIDES 8.6 MG TABLET 17.2 MG PO (20:26)
[2020-08-10 21:13] LABS: Glucose Point of Care 154 (65-105)
[2020-08-10 21:59] VITALS: BP 142/79; PULSE 95; RESP 18; TEMP 36.8; O2SAT 98
[2020-08-11 05:36] LABS: Hematocrit 28.5 % (42.0-52.0); Hemoglobin 8.7 g/dL (14.0-18.0); Mean Corpuscular HGB Conc 30.5 g/dl (32-36); Mean Corpuscular Hemoglobin 28.5 pg (26-34); Mean Corpuscular Volume 93.4 fl (80-100); Mean Platelet Volume 10.6 fl (7.4-10.4); Platelet Count Result 114 k/mm3 (150-375); Red Blood Count 3.05 M/mm3 (4.6-6.20); Red Cell Distribution Width 17.8 % (11.5-14.5); White Blood Count 7.3 K/mm3 (4.5-10.0)
[2020-08-11 05:49] LABS: Anion Gap 5 mmol/L (8-16); Blood Urea Nitrogen 56 mg/dL (9-20); Calcium 9.7 mg/dL (8.4-10.2); Carbon Dioxide 28 mmol/L (22-30); Chloride 104 mmol/L (98-107); Creatine Kinase < 20 U/L (55-170); Estimated CRCL calculation 27 ml/min; Estimated Glomerular Filt Rate 27; Glucose 128 mg/dL (75-110); Magnesium 1.5 mg/dL (1.6-2.3); Phosphorus 4.8 mg/dL (2.5-4.5); Potassium 5.5 mmol/L (3.4-5.0); Sodium 137 mmol/L (137-145)
[2020-08-11 06:00] VITALS: BP 142/76; PULSE 86; RESP 18; TEMP 37.1; O2SAT 96
[2020-08-11 06:19] LABS: INR 2.1
[2020-08-11 06:23] LABS: Partial Thromboplastin Time 119.4 SECONDS (22.3-36.8)
[2020-08-11 07:16] LABS: Glucose Point of Care 156 (65-105)
[2020-08-11] MEDS: HEPARIN SOD/D5W 100 UNITS/ML 25,000 UNITS/250 ML BAG 9 UNITS IV CONT (07:32)
[2020-08-11] MEDS: FINASTERIDE 5 MG TABLET PO (08:48)
[2020-08-11] MEDS: ASCORBIC ACID 500 MG TABLET PO ×2 (08:48→16:30)
[2020-08-11] MEDS: DULoxetine HCL 30 MG CAPSULE.DR PO (08:48)
[2020-08-11] MEDS: PANTOPRAZOLE 40 MG TABLET PO ×2 (08:48→20:18)
[2020-08-11] MEDS: MAGNESIUM OXIDE 400 MG TABLET PO (08:48)
[2020-08-11] MEDS: FERROUS SULFATE 324 MG TABLET PO (08:48)
[2020-08-11] MEDS: TAMSULOSIN HCL 0.4 MG CAPSULE PO (08:48)
[2020-08-11 08:49] VITALS: PULSE 64
[2020-08-11] MEDS: EUCERIN CREAM 120 GM JAR 1 APPLIC TOPICAL ×2 (08:50→16:30)
[2020-08-11] MEDS: polyethylene glycoL 3350 17 GM POWD.PACK PO (08:50)
[2020-08-11] MEDS: SILVERGEL (ELTA) 45 ML 1 APPLIC TOPICAL (08:50)
[2020-08-11] MEDS: PREGABALIN (*CRX) 75 MG CAPSULE PO ×2 (08:53→16:30)
[2020-08-11] MEDS: FUROSEMIDE 20 MG TABLET PO (09:18)
--- NOTE | 2020-08-11 11:01 | P.PNNP_ITS ---
Progress Note: A&P Assessment and Plan (1) ANDRADE (acute kidney injury): Code(s): N17.9 - Acute kidney failure, unspecified Status: Acute Assessment and Plan: * resolved (2) Chronic kidney disease, stage IV (severe): Code(s): N18.4 - Chronic kidney disease, stage 4 (severe) Status: Chronic Assessment and Plan: * due to chronic diuretics, diabetes, age, and vascular disease * baseline creatinine ~ 1.6 - 2.1mg/dl - may have a new baseline as creatinine has been running closer to 2.4mg/dl recently * creatinine inderjit a little bit in the last couple of days associated with mildly elevated K+ - possibly secondary to VIELKA-I use versus diuretics -- back on diuretics * positive paraproteinemia with bone marrow biopsy results noted - renal biopsy without evidence of multiple myeloma (3) Hyperkalemia: Code(s): E87.5 - Hyperkalemia Status: Acute Assessment and Plan: * etiology? - dietary intake versus underlying CKD versus mild hemolysis?? * added low potassium diet already * s/p kayexalate day before yesterday * did previous diuretic use keep this issue controlled(?) * follow trend (particularly with restart of diuretics) (4) Anemia: Code(s): D64.9 - Anemia, unspecified Status: Acute Assessment and Plan: * due to a combination of previous hematuria, supratherapuetic INR, hematoma, lo w platelet count, melena and newly diagnosed multiple myeloma * on Epogen while hospitalized * follow trend of H/H - slow improvement (5) Hematoma of left lower extremity: Qualifiers: Encounter type: initial encounter Qualified Code(s): S80.12XA - C ontusion of left lower leg, initial encounter Code(s): S80.12XA - Contusion of left lower leg, initial encounter Status: Resolved Assessment and Plan: * status/post incision and drainage as well as debridement with skin grafting * General Surgery and Plastic Surgery following * local wound care (6) Chronic venous insufficiency of lower extremity: Code(s): I87.2 - Venous insufficiency (chronic) (peripheral) Status: Chronic Assessment and Plan: * wound care following * pain control (7) CHF (congestive heart failure): Qualifiers: Heart failure chronicity: acute on chronic Heart failure type: unspecified Qualified Code(s): I50.9 - Heart failure, unspecified Code(s): I50.9 - Heart failure, unspecified Status: Chronic Assessment and Plan: * VIELKA-I on hold * back on oral diuretics * follow respiratory status Will continue to follow. Subjective Date/time seen: 08/11/20 11:01 No apparent issues or problmes; off heparin gtt and INR therapeutic; eating and drinking well; back on diuretic therapy and appears to be tolerating reasonably well; K+ still continues to fluctuate; no issues/events overnight or earlier this AM. Exam Narrative: Exam Narrative: General: elderly male in NAD Heart: normal S1 and S2; no rub Lungs: clear anteriorly with a few crackles at the bases Abdomen: soft, nontender, nondistended, positive bowel sounds Extremities: trace - 1+ edema Skin: LLE dressings in place; chronic venous stasis changes as well as healing wounds Objective Data Vital Signs Vital Signs: Vital Signs Temp Pulse Resp BP Pulse Ox 08/11/20 08:49 64 08/11/20 06:00
--- NOTE | 2020-08-11 11:01 | PM.PNNEP ---
Progress Note: A&P Assessment and Plan (1) ANDRADE (acute kidney injury): Code(s): N17.9 - Acute kidney failure, unspecified Status: Acute Assessment and Plan: resolved (2) Chronic kidney disease, stage IV (severe): Code(s): N18.4 - Chronic kidney disease, stage 4 (severe) Status: Chronic Assessment and Plan: due to chronic diuretics, diabetes, age, and vascular disease baseline creatinine ~ 1.6 - 2.1mg/dl - may have a new baseline as creatinine has been running closer to 2.4mg/dl recently creatinine inderjit a little bit in the last couple of days associated with mildly elevated K+ - possibly secondary to VIELKA-I use versus diuretics -- back on diuretics positive paraproteinemia with bone marrow biopsy results noted - renal biopsy without evidence of multiple myeloma (3) Hyperkalemia: Code(s): E87.5 - Hyperkalemia Status: Acute Assessment and Plan: etiology? - dietary intake versus underlying CKD versus mild hemolysis?? added low potassium diet already s/p kayexalate day before yesterday did previous diuretic use keep this issue controlled(?) follow trend (particularly with restart of diuretics) (4) Anemia: Code(s): D64.9 - Anemia, unspecified Status: Acute Assessment and Plan: due to a combination of previous hematuria, supratherapuetic INR, hematoma, low platelet count, melena and newly diagnosed multiple myeloma on Epogen while hospitalized follow trend of H/H - slow improvement (5) Hematoma of left lower extremity: Qualifiers: Encounter type: initial encounter Qualified Code(s): S80.12XA - Contusion of left lower leg, initial encounter Code(s): S80.12XA - Contusion of left lower leg, initial encounter Status: Resolved Assessment and Plan: status/post incision and drainage as well as debridement with skin grafting General Surgery and Plastic Surgery following local wound care (6) Chronic venous insufficiency of lower extremity: Code(s): I87.2 - Venous insufficiency (chronic) (peripheral) Status: Chronic Assessment and Plan: wound care following pain control (7) CHF (congestive heart failure): Qualifiers: Heart failure chronicity: acute on chronic Heart failure type: unspecified Qualified Code(s): I50.9 - Heart failure, unspecified Code(s): I50.9 - Heart failure, unspecified Status: Chronic Assessment and Plan: VIELKA-I on hold back on oral diuretics follow respiratory status Will continue to follow. Subjective Date/time seen: 08/11/20 11:01 No apparent issues or problmes; off heparin gtt and INR therapeutic; eating and drinking well; back on diuretic therapy and appears to be tolerating reasonably well; K+ still continues to fluctuate; no issues/events overnight or earlier this AM. Exam Narrative: Exam Narrative: General: elderly male in NAD Heart: normal S1 and S2; no rub Lungs: clear anteriorly with a few crackles at the bases Abdomen: soft, nontender, nondistended, positive bowel sounds Extremities: trace - 1+ edema Skin: LLE dressings in place; chronic venous stasis changes as well as healing wounds Objective Data Vital Signs Vital Signs: Vital Signs Temp Pulse Resp BP Pulse Ox 08/11/20 08:49 64 08/11/20 06:00 37.1 C 86 18 142/76 H 96 08/10/20 21:59 36.8 C 95 18 142/79 H 98 08/10/20 20:25 94 Intake/Output Intake/Output: Intake & Output 08/08/20 08/09/20 08/10/20 08/11/20 23:59 23:59 23:59 23:59 Intake Total 2180 2600 1390 770 Output Total 1150 2475 1300 300 Balance 1030 125 90 470 Meds/Results Medications: Active Medications Generic Name Dose Route Start Last Admin Trade Name Freq PRN Reason Stop Dose Admin Acetaminophen 500 mg 07/18/20 11:51 08/10/20 14:04 Acetaminophen 500 Mg Tablet PO 500 mg Q6H
--- NOTE | 2020-08-11 11:30 | PCNWS ---
Weekly nutritional screen. Patient is tolerating current diet with adequate intake. No weight loss reported. No nutritional needs at this time.
[2020-08-11 11:50] LABS: Partial Thromboplastin Time 68.9 SECONDS (22.3-36.8)
[2020-08-11] MEDS: HEPARIN SODIUM 5,000 UNITS/ML VIAL 3500 UNITS IV PUSH (12:01)
[2020-08-11 12:36] LABS: Glucose Point of Care 109 (65-105)
[2020-08-11 14:00] VITALS: BP 131/50; PULSE 85; RESP 18; TEMP 36.1; O2SAT 100
[2020-08-11 14:59] LABS: SARS-CoV-2 RNA PCR Negative
[2020-08-11] MEDS: EPOETIN ALFA-EPBX 10,000 UNITS/ML VIAL 10000 UNITS SUB-Q (15:59)
[2020-08-11] MEDS: WARFARIN (*PBKC) 2.5 MG TABLET PO (16:30)
--- NOTE | 2020-08-11 16:35 | PM.IMPN ---
Progress Note: A&P Assessment and Plan (1) Hematoma of left lower extremity: Qualifiers: Encounter type: initial encounter Qualified Code(s): S80.12XA - Contusion of left lower leg, initial encounter Code(s): S80.12XA - Contusion of left lower leg, initial encounter Status: Resolved Assessment and Plan: He had a large, dark purple hematoma of left posterior calf on admission related to recent trauma from a fall just prior to admission. The area was exquisitely tender and leg was edematous. This is likely source for acute anemia. Left lower extremity CT demonstrates large subcutaneous hematoma. General surgery was consulted and patient now s/p debridement of left calf hematoma on 07/18/20. Patient tolerated the procedure well. Plastic surgery consulted and patient now s/p skin grafting 07/27. Plan for SNF placement at discharge. Continue dressing changes per plastic surgery. (2) Acute blood loss anemia: Code(s): D62 - Acute posthemorrhagic anemia Status: Acute Assessment and Plan: Acute on chronic normocytic anemia. He was recently hospitalized in May 2020 for gross hematuria and underwent blood transfusion at that time. Hemoglobin 5.8 on admission here and has required a total of 6 units pRBC since. His last transfusion was on 07/18. Suspected source of anemia this admission is from posterior left calf hematoma. Additional concern for GI component given reported episode of melena prior to presentation and positive fecal occult blood test but no further testing required per GI. Hgb stable recently in the 8 range. Continue to monitor H&H closely (3) Occult blood in stools: Code(s): R19.5 - Other fecal abnormalities Status: Acute Assessment and Plan: Reports of melena prior to presentation. Fecal occult blood test positive on 07/16/2020. Gastroenterology is following and input is appreciated. EGD was being considered but left leg hematoma appears to be more acute source of blood loss. Continue Protonix daily. Per GI, no further testing required. (4) Aortic valve replaced: Code(s): Z95.2 - Presence of prosthetic heart valve Status: Acute Assessment and Plan: Patient is maintained on chronic warfarin for atrial fibrillation and for a mechanical aortic valve. INR goal is 2.0-3.0. INR was 3.4 at presentation. He received 1 unit FFP on 07/15 to bring down INR for procedure planning. Heparin drip resumed post skin grafting procedure; Coumadin resumed but held for BMB and then for the renal biopsy. Patient has completed workup. Heparin drip was continued and Coumadin resumed. INR therapeutic today at 2.1 so will stop Heparin. Continue daily INRs. (5) Acute on chronic renal failure: Qualifiers: Acute renal failure type: unspecified Chronic kidney disease stage: stage 3 (moderate) Chronic kidney disease stage 3 subtype: stage 3b (GFR 30-44) Qualified Code(s): N17.9 - Acute kidney failure, unspecified; N18.32 - Chronic kidney disease, stage 3b Code(s): N17.9 - Acute kidney failure, unspecified; N18.9 - Chronic kidney disease, unspecified Status: Acute Assessment and Plan: Baseline creatinine appears to be variable around 2.0 but stable. Creatinine upon presentation is 2.7. Suspect acute injury is multifactorial when considering diuresis, relative hypotension, and profound anemia. Renal US showed cortical thinning without hydronephrosis. SIF with IgG kappa monoclonal bands and bone marrow revealed smoldering myeloma. Kidney biopsy performed 08/07 just showing ATN. Creatine climbed to 2.8 so Lasix and ACEI held. Cr better and Lasix resumed; she seems to be tolerting this well (6) Hyperkalemia: Code(s): E87.5 - Hyperkalemia Status: Acute Assessment and Plan: Potassium up to 5.5 probably related to the CKD. Low-potassium diet started. No obvious medication side effect. Follow for now.
[2020-08-11 16:56] LABS: Glucose Point of Care 119 (65-105)
[2020-08-11 20:00] VITALS: PULSE 87; RESP 20; O2SAT 99
[2020-08-11] MEDS: ATORVASTATIN 40 MG TABLET PO (20:18)
[2020-08-11 20:20] VITALS: PULSE 85
[2020-08-11] MEDS: METOPROLOL TARTRATE 12.5 MG TABLET PO (20:20)
[2020-08-11] MEDS: traZODone HCL 25 MG TABLET PO (20:20)
[2020-08-11] MEDS: MELATONIN 3 MG TABLET 6 MG PO (20:20)
[2020-08-11 20:44] VITALS: BP 144/65; PULSE 87; RESP 20; TEMP 36.1; O2SAT 99
[2020-08-11 20:57] LABS: Glucose Point of Care 131 (65-105)
[2020-08-12 05:44] LABS: Hematocrit 25.6 % (42.0-52.0); Mean Corpuscular HGB Conc 31.3 g/dl (32-36); Mean Corpuscular Volume 89.5 fl (80-100); Mean Platelet Volume 10.6 fl (7.4-10.4); Platelet Count Result 107 k/mm3 (150-375); Red Blood Count 2.86 M/mm3 (4.6-6.20); Red Cell Distribution Width 17.6 % (11.5-14.5); White Blood Count 7.2 K/mm3 (4.5-10.0)
[2020-08-12 05:54] VITALS: BP 142/80; PULSE 100; RESP 20; TEMP 36.1; O2SAT 92
[2020-08-12 05:59] LABS: INR 2.5; Prothrombin Time 27.3 Seconds (11.1-14.7)
[2020-08-12 06:01] LABS: Anion Gap 6 mmol/L (8-16); Blood Urea Nitrogen 53 mg/dL (9-20); Calcium 9.8 mg/dL (8.4-10.2); Carbon Dioxide 25 mmol/L (22-30); Chloride 105 mmol/L (98-107); Estimated CRCL calculation 27 ml/min; Estimated Glomerular Filt Rate 27; Glucose 106 mg/dL (75-110); Potassium 5.3 mmol/L (3.4-5.0); Sodium 136 mmol/L (137-145)
[2020-08-12] MEDS: TAMSULOSIN HCL 0.4 MG CAPSULE PO (08:43)
[2020-08-12] MEDS: ASCORBIC ACID 500 MG TABLET PO ×2 (08:43→16:38)
[2020-08-12] MEDS: PANTOPRAZOLE 40 MG TABLET PO ×2 (08:43→20:33)
[2020-08-12] MEDS: DULoxetine HCL 30 MG CAPSULE.DR PO (08:43)
[2020-08-12] MEDS: MAGNESIUM OXIDE 400 MG TABLET PO (08:44)
[2020-08-12] MEDS: FERROUS SULFATE 324 MG TABLET PO (08:44)
[2020-08-12] MEDS: FINASTERIDE 5 MG TABLET PO (08:44)
[2020-08-12] MEDS: FUROSEMIDE 20 MG TABLET PO (08:44)
[2020-08-12] MEDS: polyethylene glycoL 3350 17 GM POWD.PACK PO (08:45)
[2020-08-12] MEDS: EUCERIN CREAM 120 GM JAR 1 APPLIC TOPICAL ×2 (08:46→16:38)
[2020-08-12 08:47] VITALS: PULSE 72; RESP 20; O2SAT 93
[2020-08-12] MEDS: SILVERGEL (ELTA) 45 ML 1 APPLIC TOPICAL (08:48)
[2020-08-12] MEDS: PREGABALIN (*CRX) 75 MG CAPSULE PO ×2 (08:54→16:43)
[2020-08-12 09:12] VITALS: PULSE 72
[2020-08-12] MEDS: METOPROLOL TARTRATE 12.5 MG TABLET PO ×2 (09:12→20:33)
--- NOTE | 2020-08-12 10:25 | P.PNNP_ITS ---
Progress Note: A&P Assessment and Plan (1) ANDRADE (acute kidney injury): Code(s): N17.9 - Acute kidney failure, unspecified Status: Acute Assessment and Plan: * resolved (2) Chronic kidney disease, stage IV (severe): Code(s): N18.4 - Chronic kidney disease, stage 4 (severe) Status: Chronic Assessment and Plan: * due to chronic diuretics, diabetes, age, and vascular disease * baseline creatinine ~ 1.6 - 2.1mg/dl - may have a new baseline as creatinine has been running closer to 2.4mg/dl recently * creatinine inderjit a little bit in the last couple of days associated with mildly elevated K+ - possibly secondary to VIELKA-I use versus diuretics -- back on diuretics * positive paraproteinemia with bone marrow biopsy results noted - renal biopsy without evidence of multiple myeloma (3) Hyperkalemia: Code(s): E87.5 - Hyperkalemia Status: Acute Assessment and Plan: * etiology? - dietary intake versus underlying CKD versus mild hemolysis?? * added low potassium diet already * s/p kayexalate x 1 this week * did previous diuretic use keep this issue controlled(?) * follow trend (particularly with restart of diuretics) (4) Anemia: Code(s): D64.9 - Anemia, unspecified Status: Acute Assessment and Plan: * due to a combination of previous hematuria, supratherapuetic INR, hematoma, low platelet count, melena and newly diagnosed multiple myeloma * on Epogen while hospitalized * follow trend of H/H - slow improvement (5) Hematoma of left lower extremity: Qualifiers: Encounter type: initial encounter Qualified Code(s): S80.12XA - Contusion of left lower leg, initial encounter Code(s): S80.12XA - Contusion of left lower leg, initial encounter Status: Resolved Assessment and Plan: * status/post incision and drainage as well as debridement with skin grafting * General Surgery and Plastic Surgery following * local wound care (6) Chronic venous insufficiency of lower extremity: Code(s): I87.2 - Venous insufficiency (chronic) (peripheral) Status: Chronic Assessment and Plan: * wound care following * pain control (7) CHF (congestive heart failure): Qualifiers: Heart failure chronicity: acute on chronic Heart failure type: unspecified Qualified Code(s): I50.9 - Heart failure, unspecified Code(s): I50.9 - Heart failure, unspecified Status: Chronic Assessment and Plan: * VIELKA-I on hold * back on oral diuretics * follow respiratory status Will continue to follow. Subjective Date/time seen: 08/12/20 10:25 Continue to do well in general; K+ seems to be doing a bit better at this time; did not sleep all that well last night; no apparent distress voiced at the time of my visit. Exam Narrative: Exam Narrative: General: elderly male in NAD Heart: normal S1 and S2; no rub Lungs: clear anteriorly; few crackles at the bases Abdomen: soft, nontender, nondistended, positive bowel sounds Extremities: trace - 1+ edema Skin: LLE dressings in place; chronic venous stasis changes as well as healing wounds noted Objective Data Vital Signs Vital Signs: Vital Signs Temp Pulse Resp BP Pulse Ox 08/12/20 09:12 72 08/12/20 08:47 72 20 93 08/12/20 05:54 36.1 C L 100 20 142/80 H 92
--- NOTE | 2020-08-12 10:25 | PM.PNNEP ---
Progress Note: A&P Assessment and Plan (1) ANDRADE (acute kidney injury): Code(s): N17.9 - Acute kidney failure, unspecified Status: Acute Assessment and Plan: resolved (2) Chronic kidney disease, stage IV (severe): Code(s): N18.4 - Chronic kidney disease, stage 4 (severe) Status: Chronic Assessment and Plan: due to chronic diuretics, diabetes, age, and vascular disease baseline creatinine ~ 1.6 - 2.1mg/dl - may have a new baseline as creatinine has been running closer to 2.4mg/dl recently creatinine inderjit a little bit in the last couple of days associated with mildly elevated K+ - possibly secondary to VIELKA-I use versus diuretics -- back on diuretics positive paraproteinemia with bone marrow biopsy results noted - renal biopsy without evidence of multiple myeloma (3) Hyperkalemia: Code(s): E87.5 - Hyperkalemia Status: Acute Assessment and Plan: etiology? - dietary intake versus underlying CKD versus mild hemolysis?? added low potassium diet already s/p kayexalate x 1 this week did previous diuretic use keep this issue controlled(?) follow trend (particularly with restart of diuretics) (4) Anemia: Code(s): D64.9 - Anemia, unspecified Status: Acute Assessment and Plan: due to a combination of previous hematuria, supratherapuetic INR, hematoma, low platelet count, melena and newly diagnosed multiple myeloma on Epogen while hospitalized follow trend of H/H - slow improvement (5) Hematoma of left lower extremity: Qualifiers: Encounter type: initial encounter Qualified Code(s): S80.12XA - Contusion of left lower leg, initial encounter Code(s): S80.12XA - Contusion of left lower leg, initial encounter Status: Resolved Assessment and Plan: status/post incision and drainage as well as debridement with skin grafting General Surgery and Plastic Surgery following local wound care (6) Chronic venous insufficiency of lower extremity: Code(s): I87.2 - Venous insufficiency (chronic) (peripheral) Status: Chronic Assessment and Plan: wound care following pain control (7) CHF (congestive heart failure): Qualifiers: Heart failure chronicity: acute on chronic Heart failure type: unspecified Qualified Code(s): I50.9 - Heart failure, unspecified Code(s): I50.9 - Heart failure, unspecified Status: Chronic Assessment and Plan: VIELKA-I on hold back on oral diuretics follow respiratory status Will continue to follow. Subjective Date/time seen: 08/12/20 10:25 Continue to do well in general; K+ seems to be doing a bit better at this time; did not sleep all that well last night; no apparent distress voiced at the time of my visit. Exam Narrative: Exam Narrative: General: elderly male in NAD Heart: normal S1 and S2; no rub Lungs: clear anteriorly; few crackles at the bases Abdomen: soft, nontender, nondistended, positive bowel sounds Extremities: trace - 1+ edema Skin: LLE dressings in place; chronic venous stasis changes as well as healing wounds noted Objective Data Vital Signs Vital Signs: Vital Signs Temp Pulse Resp BP Pulse Ox 08/12/20 09:12 72 08/12/20 08:47 72 20 93 08/12/20 05:54 36.1 C L 100 20 142/80 H 92 08/11/20 20:44 36.1 C L 87 20 144/65 H 99 08/11/20 20:20 85 08/11/20 20:00 87 20 99 08/11/20 14:00 36.1 C L 85 18 131/50 L 100 Intake/Output Intake/Output: Intake & Output 08/09/20 08/10/20 08/11/20 08/12/20 23:59 23:59 23:59 23:59 Intake Total 2600 1390 2155 1140 Output Total 2475 1300 300 550 Balance 577 50 2903 590 Meds/Results Medications: Active Medications Generic Name Dose Route Start Last Admin Trade Name Jasonq PRN Reason Stop Dose Admin Acetaminophen 500 mg 07/18/20 11:51 08/10/20 14:04 Acetaminoph
[2020-08-12 12:01] LABS: Glucose Point of Care 125 (65-105)
[2020-08-12 14:00] VITALS: BP 150/74; PULSE 77; RESP 16; TEMP 36.3; O2SAT 100
--- NOTE | 2020-08-12 15:12 | PM.IMPN ---
Progress Note: A&P Assessment and Plan (1) Hematoma of left lower extremity: Qualifiers: Encounter type: initial encounter Qualified Code(s): S80.12XA - Contusion of left lower leg, initial encounter Code(s): S80.12XA - Contusion of left lower leg, initial encounter Status: Resolved Assessment and Plan: He had a large, dark purple hematoma of left posterior calf on admission related to recent trauma from a fall just prior to admission. The area was exquisitely tender and leg was edematous. This is likely source for acute anemia. Left lower extremity CT demonstrates large subcutaneous hematoma. General surgery was consulted and patient now s/p debridement of left calf hematoma on 07/18/20. Patient tolerated the procedure well. Plastic surgery consulted and patient now s/p skin grafting 07/27. Plan for SNF placement at discharge. Continue dressing changes per plastic surgery. (2) Acute blood loss anemia: Code(s): D62 - Acute posthemorrhagic anemia Status: Acute Assessment and Plan: Acute on chronic normocytic anemia. He was recently hospitalized in May 2020 for gross hematuria and underwent blood transfusion at that time. Hemoglobin 5.8 on admission here and has required a total of 6 units pRBC since. His last transfusion was on 07/18. Suspected source of anemia this admission is from posterior left calf hematoma. Additional concern for GI component given reported episode of melena prior to presentation and positive fecal occult blood test but no further testing required per GI. Hgb stable recently in the 8 range. Continue to monitor H&H closely (3) Occult blood in stools: Code(s): R19.5 - Other fecal abnormalities Status: Acute Assessment and Plan: Reports of melena prior to presentation. Fecal occult blood test positive on 07/16/2020. Gastroenterology is following and input is appreciated. EGD was being considered but left leg hematoma appears to be more acute source of blood loss. Continue Protonix daily. Per GI, no further testing required. (4) Aortic valve replaced: Code(s): Z95.2 - Presence of prosthetic heart valve Status: Acute Assessment and Plan: Patient is maintained on chronic warfarin for atrial fibrillation and for a mechanical aortic valve. INR goal is 2.0-3.0. INR was 3.4 at presentation. He received 1 unit FFP on 07/15 to bring down INR for procedure planning. Heparin drip resumed post skin grafting procedure; Coumadin resumed but held for BMB and then for the renal biopsy. Patient has completed workup. Heparin drip was continued and Coumadin resumed. INR therapeutic yesterday and Heparin stopped. Continue daily INRs. (5) Acute on chronic renal failure: Qualifiers: Acute renal failure type: unspecified Chronic kidney disease stage: stage 3 (moderate) Chronic kidney disease stage 3 subtype: stage 3b (GFR 30-44) Qualified Code(s): N17.9 - Acute kidney failure, unspecified; N18.32 - Chronic kidney disease, stage 3b Code(s): N17.9 - Acute kidney failure, unspecified; N18.9 - Chronic kidney disease, unspecified Status: Acute Assessment and Plan: Baseline creatinine appears to be variable around 2.0 but stable. Creatinine upon presentation is 2.7. Suspect acute injury is multifactorial when considering diuresis, relative hypotension, and profound anemia. Renal US showed cortical thinning without hydronephrosis. SIF with IgG kappa monoclonal bands and bone marrow revealed smoldering myeloma. Kidney biopsy performed 08/07 just showing ATN. Creatine climbed to 2.8 so Lasix and ACEI held. Cr better and Lasix resumed; he seems to be tolerating this well (6) Hyperkalemia: Code(s): E87.5 - Hyperkalemia Status: Acute Assessment and Plan: Potassium elevated for unclear reasons. Probably from the CKD. Low-potassium diet started. No obvious medication side effect. Potassium stab
[2020-08-12 16:35] LABS: Glucose Point of Care 135 (65-105)
[2020-08-12] MEDS: WARFARIN (*PBKC) 2.5 MG TABLET PO (16:39)
[2020-08-12] MEDS: HYDROcodone/acetaminophen (*CRX) 5-325 MG TABLET 1 TAB PO (20:31)
[2020-08-12] MEDS: hydrOXYzine HCL 25 MG TABLET PO (20:31)
[2020-08-12] MEDS: MELATONIN 3 MG TABLET 6 MG PO (20:32)
[2020-08-12 20:33] VITALS: PULSE 62
[2020-08-12] MEDS: traZODone HCL 25 MG TABLET PO (20:33)
[2020-08-12] MEDS: SENNOSIDES 8.6 MG TABLET 17.2 MG PO (20:33)
[2020-08-12] MEDS: ATORVASTATIN 40 MG TABLET PO (20:34)
[2020-08-12 21:04] LABS: Glucose Point of Care 175 (65-105)
[2020-08-12 21:14] VITALS: BP 155/84; PULSE 79; RESP 18; TEMP 36.2; O2SAT 98
[2020-08-13 05:34] LABS: Hematocrit 26.6 % (42.0-52.0); Hemoglobin 8.3 g/dL (14.0-18.0); Mean Corpuscular HGB Conc 31.2 g/dl (32-36); Mean Corpuscular Hemoglobin 27.9 pg (26-34); Mean Corpuscular Volume 89.3 fl (80-100); Mean Platelet Volume 11.2 fl (7.4-10.4); Platelet Count Result 110 k/mm3 (150-375); Red Blood Count 2.98 M/mm3 (4.6-6.20); Red Cell Distribution Width 17.6 % (11.5-14.5); White Blood Count 6.6 K/mm3 (4.5-10.0)
[2020-08-13 05:51] LABS: Anion Gap 6 mmol/L (8-16); Blood Urea Nitrogen 54 mg/dL (9-20); Calcium 9.8 mg/dL (8.4-10.2); Carbon Dioxide 25 mmol/L (22-30); Chloride 103 mmol/L (98-107); Estimated CRCL calculation 28 ml/min; Estimated Glomerular Filt Rate 28; Glucose 110 mg/dL (75-110); Potassium 5.4 mmol/L (3.4-5.0); Sodium 134 mmol/L (137-145)
[2020-08-13 06:00] VITALS: BP 124/65; PULSE 58; RESP 18; TEMP 36.4; O2SAT 96
[2020-08-13 06:06] LABS: INR 3.1; Prothrombin Time 32.3 Seconds (11.1-14.7)
[2020-08-13 07:22] LABS: Glucose Point of Care 112 (65-105)
[2020-08-13] MEDS: PREGABALIN (*CRX) 75 MG CAPSULE PO ×2 (09:11→17:21)
[2020-08-13] MEDS: DULoxetine HCL 30 MG CAPSULE.DR PO (09:11)
[2020-08-13] MEDS: TAMSULOSIN HCL 0.4 MG CAPSULE PO (09:11)
[2020-08-13] MEDS: MAGNESIUM OXIDE 400 MG TABLET PO (09:11)
[2020-08-13] MEDS: FERROUS SULFATE 324 MG TABLET PO (09:11)
[2020-08-13 09:12] VITALS: PULSE 71
[2020-08-13] MEDS: FINASTERIDE 5 MG TABLET PO (09:12)
[2020-08-13] MEDS: FUROSEMIDE 20 MG TABLET PO (09:12)
[2020-08-13] MEDS: PANTOPRAZOLE 40 MG TABLET PO ×2 (09:12→21:17)
[2020-08-13] MEDS: METOPROLOL TARTRATE 12.5 MG TABLET PO ×2 (09:12→21:16)
[2020-08-13] MEDS: EUCERIN CREAM 120 GM JAR 1 APPLIC TOPICAL ×2 (09:17→17:17)
[2020-08-13 09:18] VITALS: RESP 18; O2SAT 97
[2020-08-13] MEDS: SILVERGEL (ELTA) 45 ML 1 APPLIC TOPICAL (09:18)
[2020-08-13] MEDS: ASCORBIC ACID 500 MG TABLET PO ×2 (09:37→17:16)
[2020-08-13 12:08] LABS: Glucose Point of Care 133 (65-105)
--- NOTE | 2020-08-13 13:24 | PM.PNNEP ---
Progress Note: A&P Assessment and Plan (1) ANDRADE (acute kidney injury): Code(s): N17.9 - Acute kidney failure, unspecified Status: Acute Assessment and Plan: resolved (2) Chronic kidney disease, stage IV (severe): Code(s): N18.4 - Chronic kidney disease, stage 4 (severe) Status: Chronic Assessment and Plan: due to chronic diuretics, diabetes, age, and vascular disease baseline creatinine ~ 1.6 - 2.1mg/dl - may have a new baseline as creatinine has been running closer to 2.4mg/dl recently creatinine inderjit a little bit in the last couple of days associated with mildly elevated K+ - possibly secondary to VIELKA-I use versus diuretics -- back on diuretics positive paraproteinemia with bone marrow biopsy results noted - renal biopsy without evidence of multiple myeloma (3) Hyperkalemia: Code(s): E87.5 - Hyperkalemia Status: Acute Assessment and Plan: etiology? - dietary intake versus underlying CKD versus mild hemolysis?? added low potassium diet already s/p kayexalate x 1 this week did previous diuretic use keep this issue controlled(?) and it K+ inderjit when diuretics held follow trend (particularly with restart of diuretics) (4) Anemia: Code(s): D64.9 - Anemia, unspecified Status: Acute Assessment and Plan: due to a combination of previous hematuria, supratherapuetic INR, hematoma, low platelet count, melena and newly diagnosed multiple myeloma on Epogen while hospitalized follow trend of H/H - slow improvement (5) Hematoma of left lower extremity: Qualifiers: Encounter type: initial encounter Qualified Code(s): S80.12XA - Contusion of left lower leg, initial encounter Code(s): S80.12XA - Contusion of left lower leg, initial encounter Status: Resolved Assessment and Plan: status/post incision and drainage as well as debridement with skin grafting General Surgery and Plastic Surgery following local wound care (6) Chronic venous insufficiency of lower extremity: Code(s): I87.2 - Venous insufficiency (chronic) (peripheral) Status: Chronic Assessment and Plan: wound care following pain control (7) CHF (congestive heart failure): Qualifiers: Heart failure chronicity: acute on chronic Heart failure type: unspecified Qualified Code(s): I50.9 - Heart failure, unspecified Code(s): I50.9 - Heart failure, unspecified Status: Chronic Assessment and Plan: VIELKA-I on hold back on oral diuretics follow respiratory status Will continue to follow. Subjective Date/time seen: 08/13/20 13:24 No apparent problems or issues to report at this time; eating and drinking well; no distress noted; making good urine output; no other complaints voiced. Exam Narrative: Exam Narrative: General: elderly male in NAD Heart: normal S1 and S2; no rub Lungs: clear anteriorly; few crackles at the bases Abdomen: soft, nontender, nondistended, positive bowel sounds Extremities: trace - 1+ edema Skin: LLE dressings in place; chronic venous stasis changes and healing LE wounds present Objective Data Vital Signs Vital Signs: Vital Signs Temp Pulse Resp BP Pulse Ox 08/13/20 09:18 18 97 08/13/20 09:12 71 08/13/20 06:00 36.4 C L 58 L 18 124/65 96 08/12/20 21:14 36.2 C L 79 18 155/84 H 98 08/12/20 20:33 62 Intake/Output Intake/Output: Intake & Output 08/10/20 08/11/20 08/12/20 08/13/20 23:59 23:59 23:59 23:59 Intake Total 1390 2155 1580 340 Output Total 0451 764 6714 700 Balance 90 1855 205 -360 Meds/Results Medications: Active Medications Generic Name Dose Route Start Last Admin Trade Name Freq PRN Reason Stop Dose Admin Acetaminophen 500 mg 07/18/20 11:51 08/10/20 14:04 Acetaminophen 500 Mg Tablet PO 500 mg Q6H PRN Administration Mild Pain
--- NOTE | 2020-08-13 13:24 | P.PNNP_ITS ---
Progress Note: A&P Assessment and Plan (1) ANDRADE (acute kidney injury): Code(s): N17.9 - Acute kidney failure, unspecified Status: Acute Assessment and Plan: * resolved (2) Chronic kidney disease, stage IV (severe): Code(s): N18.4 - Chronic kidney disease, stage 4 (severe) Status: Chronic Assessment and Plan: * due to chronic diuretics, diabetes, age, and vascular disease * baseline creatinine ~ 1.6 - 2.1mg/dl - may have a new baseline as creatinine has been running closer to 2.4mg/dl recently * creatinine inderjit a little bit in the last couple of days associated with mildly elevated K+ - possibly secondary to VIELKA-I use versus diuretics -- back on diuretics * positive paraproteinemia with bone marrow biopsy results noted - renal biopsy without evidence of multiple myeloma (3) Hyperkalemia: Code(s): E87.5 - Hyperkalemia Status: Acute Assessment and Plan: * etiology? - dietary intake versus underlying CKD versus mild hemolysis?? * added low potassium diet already * s/p kayexalate x 1 this week * did previous diuretic use keep this issue controlled(?) and it K+ inderjit when diuretics held * follow trend (particularly with restart of diuretics) (4) Anemia: Code(s): D64.9 - Anemia, unspecified Status: Acute Assessment and Plan: * due to a combination of previous hematuria, supratherapuetic INR, hematoma, low platelet count, melena and newly diagnosed multiple myeloma * on Epogen while hospitalized * follow trend of H/H - slow improvement (5) Hematoma of left lower extremity: Qualifiers: Encounter type: initial encounter Qualified Code(s): S80.12XA - Contusion of left lower leg, initial encounter Code(s): S80.12XA - Contusion of left lower leg, initial encounter Status: Resolved Assessment and Plan: * status/post incision and drainage as well as debridement with skin grafting * General Surgery and Plastic Surgery following * local wound care (6) Chronic venous insufficiency of lower extremity: Code(s): I87.2 - Venous insufficiency (chronic) (peripheral) Status: Chronic Assessment and Plan: * wound care following * pain control (7) CHF (congestive heart failure): Qualifiers: Heart failure chronicity: acute on chronic Heart failure type: unspecified Qualified Code(s): I50.9 - Heart failure, unspecified Code(s): I50.9 - Heart failure, unspecified Status: Chronic Assessment and Plan: * VIELKA-I on hold * back on oral diuretics * follow respiratory status Will continue to follow. Subjective Date/time seen: 08/13/20 13:24 No apparent problems or issues to report at this time; eating and drinking well; no distress noted; making good urine output; no other complaints voiced. Exam Narrative: Exam Narrative: General: elderly male in NAD Heart: normal S1 and S2; no rub Lungs: clear anteriorly; few crackles at the bases Abdomen: soft, nontender, nondistended, positive bowel sounds Extremities: trace - 1+ edema Skin: LLE dressings in place; chronic venous stasis changes and healing LE wounds present Objective Data Vital Signs Vital Signs: Vital Signs Temp Pulse Resp BP Pulse Ox 08/13/20 09:18 18 97 08/13/20 09:12 71 08/13/20 06:00 36.4 C L 58 L 18 124/65 96
[2020-08-13 14:00] VITALS: BP 145/58; PULSE 82; RESP 16; TEMP 36.4; O2SAT 98
--- NOTE | 2020-08-13 15:09 | P.PNIM_ITS ---
Progress Note: A&P Assessment and Plan (1) Hematoma of left lower extremity: Qualifiers: Encounter type: initial encounter Qualified Code(s): S80.12XA - Contusion of left lower leg, initial encounter Code(s): S80.12XA - Contusion of left lower leg, initial encounter Status: Resolved Assessment and Plan: He had a large, dark purple hematoma of left posterior calf on admission related to recent trauma from a fall just prior to admission. The area was exquisitely tender and leg was edematous. This is likely source for acute anemia. Left lower extremity CT demonstrates large subcutaneous hematoma. General surgery was consulted and patient now s/p debridement of left calf hematoma on 07/18/20. Patient tolerated the procedure well. Plastic surgery consulted and patient now s/p skin grafting 07/27. Plan for SNF placement at discharge. Continue dressing changes per plastic surgery. (2) Acute blood loss anemia: Code(s): D62 - Acute posthemorrhagic anemia Status: Acute Assessment and Plan: Acute on chronic normocytic anemia. He was recently hospitalized in May 2020 for gross hematuria and underwent blood transfusion at that time. Hemoglobin 5.8 on admission here and has required a total of 6 units pRBC since. His last transfusion was on 07/18. Suspected source of anemia this admission is from posterior left calf hematoma. Additional concern for GI component given reported episode of melena prior to presentation and positive fecal occult blood test but no further testing required per GI. Hgb stable recently in the 8 rang e. Continue to monitor H&H closely (3) Occult blood in stools: Code(s): R19.5 - Other fecal abnormalities Status: Acute Assessment and Plan: Reports of melena prior to presentation. Fecal occult blood test positive on 07/16/2020. Gastroenterology is following and input is appreciated. EGD was being considered but left leg hematoma appears to be more acute source of blood loss. Continue Protonix daily. Per GI, no further testing required. (4) Aortic valve replaced: Code(s): Z95.2 - Presence of prosthetic heart valve Status: Acute Assessment and Plan: Patient is maintained on chronic warfarin for atrial fibrillation and for a mechanical aortic valve. INR goal is 2.0-3.0. INR was 3.4 at presentation. He received 1 unit FFP on 07/15 to bring down INR for procedure planning. Heparin drip resumed post skin grafting procedure; Coumadin resumed but held for BMB and then for the renal biopsy. Patient has completed workup. Heparin drip was continued and Coumadin resumed. INR became therapeutic so Heparin stopped. Continue daily INRs. (5) Acute on chronic renal failure: Qualifiers: Acute renal failure type: unspecified Chronic kidney disease stage: stage 3 (moderate) Chronic kidney disease stage 3 subtype: stage 3b (GFR 30-44) Qualified Code(s): N17.9 - Acute kidney failure, unspecified; N18.32 - Chronic kidney disease, stage 3b Code(s): N17.9 - Acute kidney failure, unspecified; N18.9 - Chronic kidney disease, unspecified Status: Acute Assessment and Plan: Baseline creatinine appears to be variable around 2.0 but stable. Creatinine upon presentation is 2.7. Suspect acute injury is multifactorial when considering diuresis, relative hypotension, and profound anemia. Renal US showed cortical thinning without hydronephrosis. SIF with IgG kappa monoclonal bands and bone marrow revealed smoldering myeloma. Kidney biopsy performed 08/07 just showing ATN. Creatine climbed to 2.8 so Lasix and ACEI held. Cr better and Lasix resumed; he seems
[2020-08-13 17:36] LABS: Glucose Point of Care 157 (65-105)
[2020-08-13] MEDS: WARFARIN (*PBKC) 2.5 MG TABLET PO (17:42)
[2020-08-13] MEDS: hydrOXYzine HCL 25 MG TABLET PO (21:14)
[2020-08-13] MEDS: HYDROcodone/acetaminophen (*CRX) 5-325 MG TABLET 1 TAB PO (21:14)
[2020-08-13] MEDS: MELATONIN 3 MG TABLET 6 MG PO (21:15)
[2020-08-13] MEDS: SENNOSIDES 8.6 MG TABLET 17.2 MG PO (21:15)
[2020-08-13 21:16] VITALS: PULSE 81
[2020-08-13] MEDS: ATORVASTATIN 40 MG TABLET PO (21:16)
[2020-08-13] MEDS: traZODone HCL 25 MG TABLET PO (21:16)
[2020-08-13 21:23] LABS: Glucose Point of Care 172 (65-105)
[2020-08-13 22:00] VITALS: BP 160/63; PULSE 81; RESP 21; TEMP 36.3; O2SAT 100
[2020-08-14 05:19] LABS: Hematocrit 25.6 % (42.0-52.0); Hemoglobin 8.1 g/dL (14.0-18.0); Mean Corpuscular HGB Conc 31.6 g/dl (32-36); Mean Corpuscular Hemoglobin 28.4 pg (26-34); Mean Corpuscular Volume 89.8 fl (80-100); Mean Platelet Volume 10.8 fl (7.4-10.4); Platelet Count Result 109 k/mm3 (150-375); Red Blood Count 2.85 M/mm3 (4.6-6.20); Red Cell Distribution Width 17.6 % (11.5-14.5); White Blood Count 7.2 K/mm3 (4.5-10.0)
[2020-08-14 05:33] LABS: Anion Gap 5 mmol/L (8-16); Blood Urea Nitrogen 55 mg/dL (9-20); Calcium 9.1 mg/dL (8.4-10.2); Carbon Dioxide 24 mmol/L (22-30); Chloride 104 mmol/L (98-107); Estimated CRCL calculation 28 ml/min; Estimated Glomerular Filt Rate 28; Glucose 114 mg/dL (75-110); Potassium 5.3 mmol/L (3.4-5.0); Sodium 133 mmol/L (137-145)
[2020-08-14 06:00] VITALS: BP 132/54; PULSE 107; RESP 20; TEMP 36.2; O2SAT 98
--- NOTE | 2020-08-14 08:50 | P.PNNP_ITS ---
Progress Note: A&P Assessment and Plan (1) ANDRADE (acute kidney injury): Code(s): N17.9 - Acute kidney failure, unspecified Status: Acute Assessment and Plan: * resolved (2) Chronic kidney disease, stage IV (severe): Code(s): N18.4 - Chronic kidney disease, stage 4 (severe) Status: Chronic Assessment and Plan: * due to chronic diuretics, diabetes, age, and vascular disease * baseline creatinine ~ 1.6 - 2.1mg/dl - may have a new baseline as creatinine has been running closer to 2.4mg/dl recently (3) Hyperkalemia: Code(s): E87.5 - Hyperkalemia Status: Acute Assessment and Plan: * etiology? - dietary intake versus underlying CKD versus mild hemolysis?? * he is on a low-potassium diet. * He is not on an VIELKA-inhibitor. 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 * He could have in [place] in his sources of potassium as well such as rhabdo or hemolysis. I doubt this but will check. * s/p kayexalate x 1 this week * Creatinine seems stable even though he was started on furosemide. (4) Anemia: Code(s): D64.9 - Anemia, unspecified Status: Acute Assessment and Plan: * due to a combination of previous hematuria, supratherapuetic INR, hematoma, low platelet count, melena and newly diagnosed multiple myeloma * on Epogen while hospitalized * follow trend of H/H - slow improvement (5) Hematoma of left lower extremity: Qualifiers: Encounter type: initial encounter Qualified Code(s): S80.12XA - Contusion of left lower leg, initial encounter Code(s): S80.12XA - Contusion of left lower leg, initial encounter Status: Resolved Assessment and Plan: * status/post incision and drainage as well as debridement with skin grafting * General Surgery and Plastic Surgery following * local wound care (6) Chronic venous insufficiency of lower extremity: Code(s): I87.2 - Venous insufficiency (chronic) (peripheral) Status: Chronic Assessment and Plan: * wound care following * pain control (7) CHF (congestive heart failure): Qualifiers: Heart failure chronicity: acute on chronic Heart failure type: unspecified Qualified Code(s): I50.9 - Heart failure, unspecified Code(s): I50.9 - Heart failure, unspecified Status: Chronic Assessment and Plan: * VIELKA-I on hold * back on oral diuretics * follow respiratory status Will continue to follow. Subjective Date/time seen: 08/14/20 08:50 Interval history: Patient feels okay today. Breathing okay. some back pain for being in bed for so long. Review of Systems Cardiovascular: Cardiovascular: Reports no additional cardiovascular complaints Respiratory: Respiratory: Reports no additional respiratory complaints Gastrointestinal: Gastrointestinal: Reports no additional gastrointestinal complaints Genitourinary: Genitourinary: Reports no additional male genitourinary complaints Exam Narrative: Exam Narrative: General: Well-developed well-nourished male in NAD Heart: normal S1 and S2; no rub no gallop Lungs: clear anteriorly; few crackles at the bases Abdomen: soft, nontender, nondistended, positive bowel sounds Extremities: trace edema Skin: LLE dressings in place; chronic venous stasis changes and healing LE wounds present Objective Data Vital Signs Vital Signs: Vital Signs
--- NOTE | 2020-08-14 08:50 | PM.PNNEP ---
Progress Note: A&P Assessment and Plan (1) ANDRADE (acute kidney injury): Code(s): N17.9 - Acute kidney failure, unspecified Status: Acute Assessment and Plan: resolved (2) Chronic kidney disease, stage IV (severe): Code(s): N18.4 - Chronic kidney disease, stage 4 (severe) Status: Chronic Assessment and Plan: due to chronic diuretics, diabetes, age, and vascular disease baseline creatinine ~ 1.6 - 2.1mg/dl - may have a new baseline as creatinine has been running closer to 2.4mg/dl recently (3) Hyperkalemia: Code(s): E87.5 - Hyperkalemia Status: Acute Assessment and Plan: etiology? - dietary intake versus underlying CKD versus mild hemolysis?? he is on a low-potassium diet. He is not on an VIELKA-inhibitor. Perhaps his renal insufficiency comes with a type 4 RTA. He could have in [place] in his sources of potassium as well such as rhabdo or hemolysis. I doubt this but will check. s/p kayexalate x 1 this week Creatinine seems stable even though he was started on furosemide. (4) Anemia: Code(s): D64.9 - Anemia, unspecified Status: Acute Assessment and Plan: due to a combination of previous hematuria, supratherapuetic INR, hematoma, low platelet count, melena and newly diagnosed multiple myeloma on Epogen while hospitalized follow trend of H/H - slow improvement (5) Hematoma of left lower extremity: Qualifiers: Encounter type: initial encounter Qualified Code(s): S80.12XA - Contusion of left lower leg, initial encounter Code(s): S80.12XA - Contusion of left lower leg, initial encounter Status: Resolved Assessment and Plan: status/post incision and drainage as well as debridement with skin grafting General Surgery and Plastic Surgery following local wound care (6) Chronic venous insufficiency of lower extremity: Code(s): I87.2 - Venous insufficiency (chronic) (peripheral) Status: Chronic Assessment and Plan: wound care following pain control (7) CHF (congestive heart failure): Qualifiers: Heart failure chronicity: acute on chronic Heart failure type: unspecified Qualified Code(s): I50.9 - Heart failure, unspecified Code(s): I50.9 - Heart failure, unspecified Status: Chronic Assessment and Plan: VIELKA-I on hold back on oral diuretics follow respiratory status Will continue to follow. Subjective Date/time seen: 08/14/20 08:50 Interval history: Patient feels okay today. Breathing okay. some back pain for being in bed for so long. Review of Systems Cardiovascular: Cardiovascular: Reports no additional cardiovascular complaints Respiratory: Respiratory: Reports no additional respiratory complaints Gastrointestinal: Gastrointestinal: Reports no additional gastrointestinal complaints Genitourinary: Genitourinary: Reports no additional male genitourinary complaints Exam Narrative: Exam Narrative: General: Well-developed well-nourished male in NAD Heart: normal S1 and S2; no rub no gallop Lungs: clear anteriorly; few crackles at the bases Abdomen: soft, nontender, nondistended, positive bowel sounds Extremities: trace edema Skin: LLE dressings in place; chronic venous stasis changes and healing LE wounds present Objective Data Vital Signs Vital Signs: Vital Signs - 24 hr 08/13/20 09:12 08/13/20 09:18 08/13/20 14:00 Temperature 36.4 C Pulse Rate 71 82 Respiratory Rate 18 16 Blood Pressure 145/58 H Pulse Oximetry 97 98 08/13/20 21:16 08/13/20 22:00 08/14/20 06:00 Temperature 36.3 C L 36.2 C L Pulse Rate 81 81 107 H Respiratory Rate 21 H 20 Blood Pressure 160/63 H 132/54 L Pulse Oximetry 100 98 Intake/Output Intake/Output: Intake & Output 08/11/20 08/12/20 08/13/20 08/14/20 23:59 23:59 23:59 23:59 Intake Total 2155 1580 1520 500 Output Total 300 1375 700
[2020-08-14] MEDS: FINASTERIDE 5 MG TABLET PO (09:10)
[2020-08-14] MEDS: ASCORBIC ACID 500 MG TABLET PO (09:10)
[2020-08-14] MEDS: DULoxetine HCL 30 MG CAPSULE.DR PO (09:10)
[2020-08-14] MEDS: MAGNESIUM OXIDE 400 MG TABLET PO (09:10)
[2020-08-14] MEDS: FUROSEMIDE 20 MG TABLET PO (09:10)
[2020-08-14] MEDS: FERROUS SULFATE 324 MG TABLET PO (09:10)
[2020-08-14 09:11] VITALS: PULSE 80
[2020-08-14] MEDS: TAMSULOSIN HCL 0.4 MG CAPSULE PO (09:11)
[2020-08-14] MEDS: PANTOPRAZOLE 40 MG TABLET PO (09:11)
[2020-08-14] MEDS: PREGABALIN (*CRX) 75 MG CAPSULE PO (09:11)
[2020-08-14] MEDS: METOPROLOL TARTRATE 12.5 MG TABLET PO (09:11)
[2020-08-14] MEDS: SILVERGEL (ELTA) 45 ML 1 APPLIC TOPICAL (09:11)
[2020-08-14] MEDS: EUCERIN CREAM 120 GM JAR 1 APPLIC TOPICAL (09:11)
[2020-08-14 09:12] LABS: Reticulocyte Hemoglobin Conten 29.4 pg (28.2-35.7); Reticulocyte Percent 2.81 % (0.7-4.3); Reticulocytes Absolute 0.09 B/L (32.2-175.7)
[2020-08-14 09:17] LABS: Glucose Point of Care 115 (65-105)
[2020-08-14 09:21] LABS: Creatine Kinase < 20 U/L (55-170)
[2020-08-14 10:16] LABS: Creatinine Urine 23.9 mg/dL
[2020-08-14 10:17] LABS: Potassium Urine Random 24.5 meq/L
[2020-08-14 11:00] LABS: INR 2.5; Prothrombin Time 27.9 Seconds (11.1-14.7)
[2020-08-14] MEDS: HYDROcodone/acetaminophen (*CRX) 5-325 MG TABLET 1 TAB PO (11:00)
[2020-08-14 12:29] LABS: Glucose Point of Care 130 (65-105)
--- NOTE | 2020-08-14 12:45 | PM.DS ---
DS: Admitting Diagnosis Admitting Diagnosis Admitting Diagnosis: Left lower leg pain DS: Discharge Diagnosis Discharge Diagnosis (1) Hematoma of left lower extremity: Qualifiers: Encounter type: initial encounter Qualified Code(s): S80.12XA - Contusion of left lower leg, initial encounter Code(s): S80.12XA - Contusion of left lower leg, initial encounter Status: Resolved Assessment and Plan: He had a large, dark purple hematoma of left posterior calf on admission related to recent trauma from a fall just prior to admission. The area was exquisitely tender and leg was edematous. This is likely source for acute anemia. Left lower extremity CT demonstrates large subcutaneous hematoma. General surgery was consulted and patient now s/p debridement of left calf hematoma on 07/18/20. Patient tolerated the procedure well. Plastic surgery consulted and patient now s/p skin grafting 07/27. (2) Acute blood loss anemia: Code(s): D62 - Acute posthemorrhagic anemia Status: Acute Assessment and Plan: Acute on chronic normocytic anemia. He was recently hospitalized in May 2020 for gross hematuria and underwent blood transfusion at that time. Hemoglobin 5.8 on admission here and has required a total of 6 units pRBC since. His last transfusion was on 07/18. Suspected source of anemia this admission is from posterior left calf hematoma. Additional concern for GI component given reported episode of melena prior to presentation and positive fecal occult blood test but no further testing required per GI. Hgb stable recently in the 8 range. (3) Occult blood in stools: Code(s): R19.5 - Other fecal abnormalities Status: Acute Assessment and Plan: Reports of melena prior to presentation. Fecal occult blood test positive on 07/16/2020. Gastroenterology followed and input was appreciated. EGD was being considered but left leg hematoma appears to be more acute source of blood loss. We continued Protonix daily. Per GI, no further testing required. (4) Aortic valve replaced: Code(s): Z95.2 - Presence of prosthetic heart valve Status: Acute Assessment and Plan: Patient is maintained on chronic warfarin for atrial fibrillation and for a mechanical aortic valve. INR goal is 2.0-3.0. INR was 3.4 at presentation. He received 1 unit FFP on 07/15 to bring down INR for procedure planning and started on Heparin drip. Heparin drip held for I&D and skin grafting procedures; Coumadin resumed but held for BMB and then for the renal biopsy. Patient has completed workup. Heparin drip was continued and Coumadin resumed. INR became therapeutic so Heparin stopped. INR 2.5 today. (5) Acute on chronic renal failure: Qualifiers: Acute renal failure type: unspecified Chronic kidney disease stage: stage 3 (moderate) Chronic kidney disease stage 3 subtype: stage 3b (GFR 30-44) Qualified Code(s): N17.9 - Acute kidney failure, unspecified; N18.32 - Chronic kidney disease, stage 3b Code(s): N17.9 - Acute kidney failure, unspecified; N18.9 - Chronic kidney disease, unspecified Status: Acute Assessment and Plan: Baseline creatinine appears to be variable around 2.0 but stable. Creatinine upon presentation is 2.7. Suspect acute injury is multifactorial when considering diuresis, relative hypotension, and profound anemia. Renal US showed cortical thinning without hydronephrosis. SIF with IgG kappa monoclonal bands and bone marrow revealed smoldering myeloma. Kidney biopsy performed 08/07 just showing ATN. Creatine climbed to 2.8 so Lasix and ACEI held. Cr better and Lasix resumed; he seems to be tolerating this well. Cr 2.3 today and stable (6) Hyperkalemia: Code(s): E87.5 - Hyperkalemia Status: Acute Assessment and Plan: Potassium elevated for unclear reasons. Probably from the CKD. Low-potassium diet started. No obvious medi
[2020-08-14 14:00] VITALS: BP 127/52; PULSE 76; RESP 16; TEMP 36.5; O2SAT 98
[2020-08-14] MEDS: EPOETIN ALFA-EPBX 10,000 UNITS/ML VIAL 10000 UNITS SUB-Q (14:21)
[2020-08-16 13:49] LABS: Haptoglobin 78 mg/dL (43-212)
--- NOTE | 2020-08-21 14:04 | PC.NURSE ---
Aldosterone, Haptoglobin and Renin all WNL. Dr. Hicks aware.
== END 2020-08-14 14:45 | DRG 577 ==
LOC: ANHED 16:54 → ANH2MED 17:07
PROVIDERS: Family Medicine; Internal Medicine; Internal Medicine Nephrology; Nurse Practitioner; Physician Assistant; Radiology Diagnostic Radiology; Surgery; Surgery Plastic and Reconstructive Surgery; Admitting Provider Internal Medicine; Emergency Provider Emergency Medicine; PCP Internal Medicine; Referring Provider Internal Medicine; Visit Provider Internal Medicine
PROC: 0JBP0ZZ Excision of Left Lower Leg Subcutaneous Tissue and Fascia, Open Approach (ICD-10-PCS; principal; 2020-07-18 10:00)
PROC: 0HRLX74 Replacement of Left Lower Leg Skin with Autologous Tissue Substitute, Partial Thickness, External Approach (ICD-10-PCS; principal; 2020-07-27 12:30)
PROC: 07DR3ZX Extraction of Iliac Bone Marrow, Percutaneous Approach, Diagnostic (ICD-10-PCS; principal; 2020-07-31 11:30)
DX: S80.12XA Contusion of left lower leg, initial encounter (principal); D62 Acute posthemorrhagic anemia; I48.20 Chronic atrial fibrillation, unspecified; N17.9 Acute kidney failure, unspecified; D61.818 Other pancytopenia; C90.00 Multiple myeloma not having achieved remission; I13.0 Hypertensive heart and chronic kidney disease with heart failure and stage 1 through stage 4 chronic kidney disease, or unspecified chronic kidney disease; N18.4 Chronic kidney disease, stage 4 (severe); Z20.822 Contact with and (suspected) exposure to COVID-19; W19.XXXA Unspecified fall, initial encounter; I50.9 Heart failure, unspecified; E11.22 Type 2 diabetes mellitus with diabetic chronic kidney disease; S80.819A Abrasion, unspecified lower leg, initial encounter; I87.2 Venous insufficiency (chronic) (peripheral); N40.0 Benign prostatic hyperplasia without lower urinary tract symptoms; R33.8 Other retention of urine; D63.1 Anemia in chronic kidney disease; E87.5 Hyperkalemia; R19.5 Other fecal abnormalities; Z95.2 Presence of prosthetic heart valve; E78.5 Hyperlipidemia, unspecified; I25.10 Atherosclerotic heart disease of native coronary artery without angina pectoris; Z95.1 Presence of aortocoronary bypass graft
CPT/HCPCS: 36415; 36430; 38222; 50200; 71046; 73590; 73700; 76775; 76942; 77075; 80048; 80053; 80069; 81001; 81050; 82088; 82274; 82436; 82550; 82570; 82784; 82948; 83010; 83036; 83735; 83874; 83880; 83883; 84100; 84132; 84133; 84155; 84156; 84165; 84166; 84244; 84300; 85014; 85018; 85025; 85027; 85046; 85610; 85730; 85999; 86140; 86334; 86335; 86850; 86860; 86870; 86880; 86900; 86901; 86902; 86920; 86922; 88184; 88185; 88300; 88304; 88305; 88311; 88313; 88329; 88346; 88348; 88350; 88360; 93970; 96360; 96361; 96374; 96375; 96376; 97110; 97116; 97161; 97165; 97530; 97535; 99284; 99285; A9270; C9803; G0378; J0171; J0330; J0690; J1644; J1815; J2250; J2270; J2370; J2405; J2704; J3010; J3475; J7040; J7050; J7120; P9016; P9017; Q5106; U0003; U0005

== ENCOUNTER 2020-08-28 11:53 | Outpatient (RCR) | payer MEDICARE, SELFPAY ==
[2020-08-28 12:00] VITALS: BMI 24.1
--- NOTE | 2020-08-28 13:15 | WPDPN ---
Progress Note: A&P Assessment and Plan (1) Open wound of left lower extremity: Code(s): S81.802A - Unspecified open wound, left lower leg, initial encounter Status: Acute Assessment and Plan: Doing well after debridement / STSG left lower extremity. I will see him back and check his progress. They have a full list of instructions. Understands what to monitor for. They will call with any questions or concerns. (2) Hematoma of left lower extremity: Qualifiers: Encounter type: initial encounter Qualified Code(s): S80.12XA - Contusion of left lower leg, initial encounter Code(s): S80.12XA - Contusion of left lower leg, initial encounter Status: Resolved Review of Systems Review of Systems: All systems reviewed & are unremarkable except as noted in HPI and below Exam Narrative: Exam Narrative: Left lower extremity with near complete take of the graft. No signs of infection. No hematoma. No seroma. See wound care measurements. Donor site is also healing well. Objective Data Meds/Results Medications: Active Medications Generic Name Dose Route Start Last Admin Trade Name Freq PRN Reason Stop Dose Admin Miconazole Nitrate 1 applic 08/28/20 12:51 Miconazole 2% Antifungal Ointment 56 Gm TOPICAL 11/28/20 23:59 PRN PRN Wound Care Silver Nitrate 1 applic 08/28/20 12:52 Silvergel (Elta) 45 Ml TOPICAL 11/28/20 23:59 PRN PRN Wound Care Subjective Date/time seen: 08/28/20 12:45 He is here today in follow-up of wound of his left lower extremity (calf) and split-thickness skin graft. He says he is doing well. No complaints. No fevers or chills. No nausea vomiting. No shortness of breath. No chest pain.
--- NOTE | 2020-09-25 08:49 | PCWOUND ---
WOCN NOTE Patent's spouse contacted wound center to cancel appointment due to patient not having transportation from assisted. Rescheduled with Dr. Copeland on Friday10/02/20 at 12:15pm
--- NOTE | 2020-10-02 13:18 | PCWOUND ---
WOCN NOTE patient did not show up for appointment or call, placed call to reschedule.
== END 2020-11-13 08:16 ==
LOC: ANHWOC 11:53
PROVIDERS: PCP Internal Medicine; Visit Provider Surgery Plastic and Reconstructive Surgery
DX: Z48.817 Encounter for surgical aftercare following surgery on the skin and subcutaneous tissue (principal); Z94.5 Skin transplant status
CPT/HCPCS: 99213; G0463

== ENCOUNTER 2020-08-28 11:58 | Outpatient (CLI) | payer MEDICARE, SELFPAY ==
[2020-08-28 12:49] LABS: Hematocrit 30.9 % (42.0-52.0); Hemoglobin 9.7 g/dL (14.0-18.0); Mean Corpuscular HGB Conc 31.4 g/dl (32-36); Mean Corpuscular Hemoglobin 28.5 pg (26-34); Mean Corpuscular Volume 90.9 fl (80-100); Mean Platelet Volume 12.2 fl (7.4-10.4); Platelet Count Result 135 k/mm3 (150-375); Red Cell Distribution Width 17.2 % (11.5-14.5); White Blood Count 6.6 K/mm3 (4.5-10.0)
[2020-08-28 13:18] LABS: Albumin Level 4.2 g/dL (3.5-5.1); Anion Gap 7 mmol/L (8-16); Blood Urea Nitrogen 42 mg/dL (9-20); Carbon Dioxide 26 mmol/L (22-30); Chloride 105 mmol/L (98-107); Estimated Glomerular Filt Rate 35; Glucose 138 mg/dL (75-110); Phosphorus 3.6 mg/dL (2.5-4.5); Potassium 5.1 mmol/L (3.4-5.0); Sodium 138 mmol/L (137-145)
== END 2020-08-28 11:59 | disposition home or self-care (01) ==
PROVIDERS: PCP Internal Medicine; Visit Provider Internal Medicine
DX: Z94.5 Skin transplant status (principal); D62 Acute posthemorrhagic anemia; N17.9 Acute kidney failure, unspecified; N18.9 Chronic kidney disease, unspecified
CPT/HCPCS: 36415; 80069; 85027

== ENCOUNTER 2020-10-26 06:39 | Inpatient (IN) | payer MEDICARE, SELFPAY ==
[2020-10-26] VITALS (8 sets, daily range): BP systolic 116–150; BP diastolic 61–73; PULSE 67–94; RESP 13–20; TEMP 36.4–37; O2SAT 96–100; BMI 29.4
--- NOTE | ~2020-10-26 | US_ITS ---
EXAMINATION: US renal BI EXAM DATE: 10/27/2020 10:43 INDICATION: Acute kidney insufficiency. TECHNIQUE: Multiple grayscale and Doppler images of the kidneys were obtained (by a technologist who performed the scan) and subsequently reviewed. There is no prior study for comparison. FINDINGS: Right kidney: There is normal contour and echogenicity. It measures 13.8 x 6.5 x 6.5 centimeters. T here are no focal renal lesions identified. There is no hydronephrosis. Left kidney: There is normal contour and echogenicity. It measures 13.2 x 6.7 x 6.4 centimeters. Th ere are no focal renal lesions identified. There is no hydronephrosis. Bladder unremarkable. IMPRESSION: 1. Sonographically unremarkable kidneys. Reviewed, dictated and finalized at location A.
--- NOTE | ~2020-10-26 | XR_ITS ---
EXAMINATION: XR shoulder LT min 2V EXAM DATE: 11/02/2020 18:49 INDICATION: Left shoulder pain for a few months. No known recent injury. TECHNIQUE: The following left shoulder projections obtained: frontal projection with internal rotatio n, frontal projection with external rotation, Grashey, and scapular Y view (4+ views). There is no p rior study for comparison. FINDINGS: No evidence of left shoulder rotator cuff calcific tendinosis. There is mild to moderate glenohumeral joint, moderate acromioclavicular joint primary osteoarthritis. Bones are osteopenic. Please note that osteopenia limits sensitivity for detecting fractures by radiographs. There is aort ic arteriosclerosis. Sternotomy wires are present without findings to suggest sternal dehiscence. The re are no acute fractures identified. IMPRESSION: Moderate left acromioclavicular, mild to moderate glenohumeral osteoarthritis. Reviewed, dictated and finalized at location A. IMPRESSION: Moderate left acromioclavicular, mild to moderate glenohumeral ost eoarthritis.
--- NOTE | ~2020-10-26 | XR_ITS ---
EXAMINATION: XR chest port-a-cath/central EXAM DATE: 11/10/2020 11:28 INDICATION: Insertion of tunneled dialysis catheter, postoperative image. TECHNIQUE: Portable AP frontal chest x-ray was obtained. Comparison is made to prior examination from 10/30/2020. FINDINGS: There is a right-sided double-lumen dialysis catheter. Sternotomy wires. Cardiomegaly and p ulmonary vascular congestion. Cardiac valve replacement. No evidence of postprocedure pneumothorax or pleural effusion. There is patchy left basilar infiltrate, could be edema or pneumonia. IMPRESSION: Cardiomegaly, congestion and nonspecific left basilar opacity probably edema or pneumoni a. Reviewed, dictated and finalized at location B. IMPRESSION: Cardiomegaly, congestion and nonspecific left basilar opacity prob ably edema or pneumonia.
--- NOTE | ~2020-10-26 | XR_ITS ---
EXAMINATION: XR fl guide central line place DATE: 11/10/2020 10:54 INDICATION: Fall dialysis catheter insertion TECHNIQUE: Fluoroscopic images of the central chest were obtained during procedure performed by Dr. Anali kat. Radiologist was not present for the imaging or procedure. The amount of fluoroscopy time used during this procedure was 0.9 minutes. COMPARISON: None. FINDINGS: Large-bore dual-lumen right internal jugular central venous dialysis catheter with distal tip at the level of the caudal superior vena cava. Median sternotomy wires and mediastinal surgical clips are se en, likely from prior coronary artery bypass grafting. IMPRESSION: 1. Right internal jugular central venous catheter tip at the caudal superior vena cava. Reviewed, dictated and finalized at location A. IMPRESSION: 1. Right internal jugular central venous catheter tip at the caudal superior ve na cava.
--- NOTE | ~2020-10-26 | XR_ITS ---
EXAMINATION: XR chest 1V portable EXAM DATE: 10/30/2020 16:58 INDICATION: crackles, HX CHF, CAD, AFIB, DM2, HTN . TECHNIQUE: Portable AP frontal chest x-ray was obtained. Comparison is made to prior examination from 07/22/2020. FINDINGS: There is cardiomegaly and pulmonary vascular congestion. Indistinct bilateral reticulation, probably pulmonary edema. No sizable pleural effusion. Sternotomy wires are present without findings to suggest sternal dehiscence. Aortic valve replacement. There is no pneumothorax suspected. There a re bony degenerative changes. IMPRESSION: 1. Cardiomegaly, congestion and indistinct reticulation most likely pulmonary edema. Reviewed, dictated and finalized at location A.
--- NOTE | ~2020-10-26 | US_ITS ---
US venous doppler [facility] DATE: 11/05/2020 11:24 INDICATION: Swelling of the lower extremities TECHNIQUE: Real-time and color flow imaging and Doppler analysis of the veins of the lower extremitie s COMPARISON: 07/13/2020 bilateral lower extremity venous duplex examination FINDINGS: The greater saphenous veins are patent. There is spontaneous and phasic flow and normal aug mentation and color flow signal and normal compression of the deep veins with the exception of the le ft peroneal vein where partial venous thrombosis is demonstrated at one of 2 paired veins. IMPRESSION: Partial deep venous thrombosis of one of 2 paired left peroneal vein Reviewed, dictated and finalized at Location A. Reviewed, dictated and finalized at location A. IMPRESSION: Partial deep venous thrombosis of one of 2 paired left peroneal vei n
--- NOTE | ~2020-10-26 | XR_ITS ---
EXAMINATION: XR chest 1V portable DATE: 11/15/2020 15:25 INDICATION: Crackles in the lungs. TECHNIQUE: A single frontal view of the chest was obtained on 2 radiographs. COMPARISON: Chest single view 11/10/2020, chest CT 10/29/2019 FINDINGS: There are mild airspace opacities in the mid and lower lung zones. No pleural effusion or p neumothorax. Cardiomegaly is noted. There are changes of tricuspid valve replacement and aortic valve replacement. A right internal jugular central venous catheter is seen with tip at the superior cavoa trial junction. IMPRESSION: 1. Stable mild airspace opacities in the mid and lower lung zones, consistent with atelectasis versus pneumonia. 2. Cardiomegaly. Reviewed, dictated and finalized at location A. IMPRESSION: 1. Stable mild airspace opacities in the mid and lower lung zones, consistent w ith atelectasis versus pneumonia. 2. Cardiomegaly.
[2020-10-26 07:46] LABS: Alanine Aminotransferase 11 U/L (4-50); Albumin Level 3.8 g/dL (3.5-5.1); Alkaline Phosphatase 91 U/L (38-126); Anion Gap 12 mmol/L (8-16); Aspartate Amino Transferase 28 U/L (17-59); Bilirubin,Total 0.6 mg/dL (0.2-1.3); Blood Urea Nitrogen 61 mg/dL (9-20); Calcium 9.1 mg/dL (8.4-10.2); Carbon Dioxide 21 mmol/L (22-30); Chloride 106 mmol/L (98-107); Estimated CRCL calculation 16 ml/min; Estimated Glomerular Filt Rate 14; Glucose 102 mg/dL (75-110); Potassium 5.5 mmol/L (3.4-5.0); Sodium 139 mmol/L (137-145)
[2020-10-26 07:47] LABS: Basophils Percent Auto 0.2 % (0.2-1.2); Eosinophils Absolute Auto 2.1 K/mm3 (0-0.3); Hematocrit 25.9 % (42.0-52.0); Hemoglobin 8.1 g/dL (14.0-18.0); Immature Granulocyte Absolute 0.04 K/mm3 (0.00-0.031); Immature Granulocyte Percent A 0.5 % (0-0.5); Lymphocytes Percent Auto 7.3 % (18.3-44.2); Mean Corpuscular HGB Conc 31.3 g/dl (32-36); Mean Corpuscular Hemoglobin 27.6 pg (26-34); Mean Corpuscular Volume 88.4 fl (80-100); Mean Platelet Volume 12.9 fl (7.4-10.4); Monocytes Absolute Auto 0.9 K/mm3 (0.1-0.6); Monocytes Percent Auto 10.3 % (2.6-8.5); Neutrophils Absolute Auto 4.6 K/mm3 (1.3-6.7); Neutrophils Percent Auto 55.7 % (45.5-73.1); Platelet Count Result 100 k/mm3 (150-375); Red Blood Count 2.93 M/mm3 (4.6-6.20); Red Cell Distribution Width 18.2 % (11.5-14.5); White Blood Count 8.2 K/mm3 (4.5-10.0)
[2020-10-26 08:04] LABS: Add Urine Microscopic? YES; Appearance Urine Cloudy (Clear); Bacteria Urine Trace /hpf; Bilirubin Urine Negative (Negative); Blood Urine 3+ (Negative); Color Urine Yellow (Yellow); Glucose Urine UA Negative (Negative); Ketones Urine Negative (Negative); Leukocyte Esterase Ur 3+ LEU/UL (Negative); Nitrate Urine Negative (Negative); Protein Urine 1+ mg/dL (Negative); RBC Urine >75 /hpf (0-2); Specific Grav Ur 1.013 (1.001-1.035); Squamous Epithelial Cell Urine Rare /hpf (Few); Urobilinogen Urine Negative mg/dL (<2.0); WBC Clumps Urine Present /HPF; WBC Urine >75 /hpf
--- NOTE | 2020-10-26 09:19 | ED.GENADULT ---
HPI - General Adult General Chief complaint: Recheck/Abnormal Lab/Rx Stated complaint: ABN labs Time Seen by Provider: 10/26/20 07:11 Source: patient, EMS and RN notes reviewed Mode of arrival: EMS Limitations: no limitations History of Present Illness HPI narrative: Patient is 74 years old white male brought to the emergency room by ambulance from care home because of abnormal lab on a routine blood work-up. Patient is asymptomatic. Patient denies any fever, chills, nausea, vomiting. Related Data Home Medications Medication Instructions Recorded Confirmed Citroma 296 ml PO DAILY PRN 07/12/20 09/22/20 bisacodyl 10 mg RECTAL DAILY PRN 07/12/20 09/22/20 ferrous sulfate 325 mg PO DAILY@0800 07/12/20 09/22/20 metoprolol tartrate 12.5 mg PO Q12HR 07/12/20 09/22/20 sennosides [Senna Lax] 8.6 mg PO HS 07/12/20 09/22/20 ammonium lactate TOPICAL 10/26/20 bumetanide [Bumex] 1 mg PO BID 10/26/20 sacubitril-valsartan [Entresto] 1 tablet PO DAILY 10/26/20 spironolactone 25 mg PO DAILY 10/26/20 warfarin 3 mg PO QTUTHSASU 10/26/20 warfarin 4 mg PO QMWF 10/26/20 Allergies Allergy/AdvReac Type Severity Reaction Status Date / Time zolpidem Allergy Unknown Verified 10/26/20 06:46 gabapentin AdvReac Shakiness Verified 10/26/20 06:46 Review of Systems Review of Systems: Narrative: CONSTITUTIONAL: Denies fever, chills, or sweats. EYES: Denies visual changes, redness, or discharge. ENT: Denies rhinorrhea, congestion, sore throat, or otalgia. CARDIOVASCULAR: Denies chest pain, palpitations, or edema. RESPIRATORY: Denies cough or dyspnea. GASTROINTESTINAL: Denies abdominal pain, nausea, vomiting, or diarrhea. GENITOURINARY: Denies dysuria or hematuria. SKIN: Skin rash MUSCULOSKELETAL: Denies back pain, joint pain, or myalgia. NEUROLOGIC: Denies headache, numbness, or weakness. PSYCHIATRIC: Denies anxiety or depression. [facility] Past Medical History Medical History Acute on chronic blood loss anemia Acute on chronic renal failure Aortic insufficiency Atrial fibrillation BPH (benign prostatic hyperplasia) CHF (congestive heart failure) Chronic indwelling Ramirez catheter Coronary artery disease DM2 (diabetes mellitus, type 2) GI bleed Gout Gout Hyperlipidemia Hypertension Hypertension Leg ulcer Right thigh Melena Osteomyelitis Pneumonia Type 2 diabetes mellitus Urinary retention Surgical History Surgical History Aortic valve replaced Hx of CABG S/P CABG x 1 Family History Family History Unknown Family history unknown Sibling Prostate carcinoma Social History Social History Social History: The patient lives in a care facility and his lives at home. He is a full code. He tells me he has never had any children. 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 Smoking status: Former smoker Tobacco type: cigars Second hand tobacco smoke exposure: No Additional smoking assessment comments: smoked 2 per day for 5 yeaars, stopped 2 years ago. Alcohol intake: never Substance use: never Substance use type: does not use Gender identity (if verbalized by the patient): Male Spiritual care concerns: No Exam Narrative: Exam Narrative: General appearance: Well-developed, well-nourished Skin: Skin rash, multiple scattered blisters Head: Normocephalic, nontraumatic Eyes: Clear conjunctiva ENT: Oropharynx normal, ears normal, nose normal Neck: Supple, nontender Chest and respiratory: Airway patent, no respiratory distress, no accessory muscle use Heart: Regular rate/rhythm Abdomen: Soft, nontender, no organomegaly, quiet bowel sounds Vascular: Normal peripheral pulses, normal capillary refill. Musculoskeletal: Normal range of motion, nontender back Neurologic: Alert
[2020-10-26] MEDS: SODIUM CHLORIDE 0.9% IV 1,000 ML 999 ML IV CONT (09:57)
[2020-10-26 12:08] LABS: Glucose Point of Care 100 mg/dl (65-105)
--- NOTE | 2020-10-26 12:08 | ADMGEN ---
This patient, Alton Rock, was admitted to [facility] Surg Room 306-02. Patient/family oriented to hospital policies and general routines including ID bracelet, bed and alarms, visiting hours, pain management, procedures, bathroom and other care routines, personal items, smoking policy, room service/diet, and visiting hours. Information on how to activate the Rapid Response Team has been discussed. Patient/Family are encouraged to report perceived risks to care and to ask questions if they do not understand what they are told or what they should do.
[2020-10-26] MEDS: SODIUM CHLORIDE 0.9% IV 1,000 ML 125 ML IV CONT ×2 (12:15→21:18)
--- NOTE | 2020-10-26 13:32 | P.HP_ITS ---
pregabalin 75 mg capsule 75 mg PO BID #60 cap 07/04/20 10/26/20 Rx Citroma 296 ml PO DAILY PRN 07/12/20 10/26/20 History bisacodyl 10 mg RECTAL DAILY PRN 07/12/20 10/26/20 History ferrous sulfate 325 mg PO DAILY@0800 07/12/20 10/26/20 History metoprolol tartrate 12.5 mg PO Q12HR 07/12/20 10/26/20 History sennosides [Senna Lax] 17.2 mg PO HS 07/12/20 10/26/20 History ammonium lactate 1 applic TOPICAL DAILY 10/26/20 10/26/20 History bumetanide [Bumex] 1 mg PO BID 10/26/20 10/26/20 History guaifenesin 400 mg PO Q4H 10/26/20 10/26/20 History hydrocodone-acetaminophen 1 tablet PO BID 10/26/20 10/26/20 History hydrocodone-acetaminophen 1 tablet PO Q4H PRN 10/26/20 10/26/20 History sacubitril-valsartan [Entresto] 1 tablet PO BID 10/26/20 10/26/20 History spironolactone 25 mg PO DAILY 10/26/20 10/26/20 History warfarin 3 mg PO QTUTHSASU 10/26/20 10/26/20 History warfarin 4 mg PO QMWF 10/26/20 10/26/20 History Allergies Allergy/AdvReac Type Severity Reaction Status Date / Time zolpidem Allergy Unknown Verified 10/26/20 12:53 gabapentin AdvReac Shakiness Verified 10/26/20 12:53 Vital Signs Vital Signs - 24 hr 10/26/20 06:40 10/26/20 07:50 10/26/20 09:17 Temperature 37.0 C Pulse Rate 79 76 74 Respiratory Rate 13 19 15 Blood Pressure 126/67 146/66 H 116/61 Pulse Oximetry 97 99 100 10/26/20 10:52 10/26/20 11:25 Temperature 36.4 C L Pulse Rate 72 67 Respiratory Rate 18 20 Blood Pressure 136/64 139/62 Pulse Oximetry 99 96 Exam Const: General: cooperative, healthy appearing, comfortable, no acute distress, well developed, alert, awake, Physically active and other ( confusion at times) Nutritional Appearance: average body habitus and well nourished Orientation/consciousness: oriented to person, oriented to place, oriented to time and patient oriented x3 Limitations: no limitations HENMT: Head: normal to inspection, No palpable skull fracture present, normocephalic and atraumatic Ears: hearing grossly normal bilaterally and external ears normal General nose exam: Normal external nose present and Normal nares present Eyes: General: appearance normal, both eyes and all related structures Alignment and Position: alignment normal Periorbital: periorbital findings normal Eyelids: eyelids normal Conjunctivae: conjunctivae normal Sclera: sclerae normal Cornea: corneas normal Pupils: Equal, round and reactive pupils present EOM: EOMs intact bilaterally Neck: Neck: normal visual inspection, full ROM, no lymphadenopathy, trachea midline and supple Thyroid: thyroid normal Carotids: normal carotid upstroke Lymphatic: no lymphadenopathy noted Chest: Chest palpation & inspection: normal inspection of the chest Resp: Effort & Inspection: normal respiratory effort Auscultation: clear to auscultation bilaterally Percussion: percussion normal Cardio: Palpation: normal PMI Rate: regular rate Rhythm: abnormal rhythm Heart sounds: S1 normal heart sound present and S2 normal heart sound present Peripheral pulses: Peripheral pulses 2+ throughout GI: Inspection: normal to inspection Percussion: Yes normal to percussion Auscultation: normal bowel sounds Rectal Exam: deferred Skin: Rashes: rashes noted ( red raised rash on trunk
--- NOTE | 2020-10-26 13:32 | PM.IMHP ---
H&P: HPI History of Present Illness Date/Time: 10/26/20 13:32Panchito is a 74-year-old male patient who resides at [facility]. The patient does have a history has chronic renal disease and anemia. The patient has multiple wounds on his lower back and lower extremities. Other than that the patient has no complaints. The patient has seen Dr. coulter for multiple myeloma in the past and he has seen Dr. Melchor for his chronic renal failure. The patient denies any fever chills or any nausea vomiting. His H&H is 8.1 and 25.9 which is his baseline. His creatinine Is 4.1 today and his baseline is somewhere between 1.9 and 2.4. the patient was found have UTI and he was started on Zosyn. The patient has a history of having Pseudomonas aeruginosa and E coli in his urine in the past. He also has a history of having worse in the past. The patient is being admitted to inpatient services on 10/26/2020. Chief Complaint: abnormal labs Review of Systems Review of Systems: Narrative: Patient forgetful at times. All systems reviewed & are unremarkable except as noted in HPI and below Constitutional: Constitutional: Reports as per HPI and Reports no additional constitutional complaints Eyes: Eyes: Reports as per HPI and Reports no additional eye complaints ENT: Reports system reviewed and no additional complaints, except as documented and Reports Normal hearing present Cardiovascular: Cardiovascular: Reports no additional cardiovascular complaints Respiratory: Respiratory: Reports no additional respiratory complaints and Reports no additional respiratory complaints Gastrointestinal: Gastrointestinal: Reports as per HPI and Reports no additional gastrointestinal complaints Musculoskeletal: Musculoskeletal: Reports no additional musculoskeletal complaints Integumentary/Breasts: Skin/Breast: Reports system reviewed and no additional complaints, except as docu and Reports as per HPI Neurologic: Reports system reviewed and no additional complaints, except as documented, Reports as per HPI and Reports Normal hearing present Psychiatric: Psychiatric: Reports no additional psychiatric complaints and Reports as per HPI Endocrine: Endocrine: Reports no additional endocrine complaints Hematologic/Lymphatic: Hematologic/Lymphatic: Reports no additional hematologic/lymphatic complaints Allergic/Immunologic: Allergic/Immunologic: Reports no additional allergic/immunologic complaints [facility] Past Medical History Medical History (Updated 10/26/20 @ 13:45 by Emily Cheung NP) Acute on chronic blood loss anemia Acute on chronic renal failure Aortic insufficiency Atrial fibrillation BPH (benign prostatic hyperplasia) CHF (congestive heart failure) Chronic indwelling Ramirez catheter Coronary artery disease DM2 (diabetes mellitus, type 2) GI bleed Gout Gout Hyperlipidemia Hypertension Hypertension Leg ulcer Right thigh Melena Osteomyelitis Pneumonia Suspected COVID-19 virus infection Troponin level elevated Type 2 diabetes mellitus Urinary retention Surgical History Surgical History Aortic valve replaced Hx of CABG S/P CABG x 1 Family History Family History (Updated 10/26/20 @ 13:50 by Emily Cheung NP) Sibling Prostate carcinoma Father Acute myocardial infarction Social History Social History (Updated 10/26/20 @ 13:52 by Emily Cheung NP) Social History: The patient lives in a care facility and his lives at home. He is a full code. He tells me he has never had any children. 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 He resides at [facility] Years smoked: 50 Smoking status: Former smoker Tobacco type: cigars Second hand tobacco smoke exposure: No Additional smoking assessment comments: 2-3 cigars daily Alcohol intake: never Substance use: never Substance use type: does not use Gen
--- NOTE | 2020-10-26 14:27 | PM.CNNEP ---
Assessment and Plan Assessment and plan (1) ANDRADE (acute kidney injury): Code(s): N17.9 - Acute kidney failure, unspecified Status: Acute Assessment and Plan: etiology not entirely clear evidence of UTI by admission UA so that could be contributing(?) overdiuresis (on bumex)?? concurrent use of entresto + spironolactone?? follow-up on renal ultrasound check urine electrolytes and eosinophils follow repeat labs and UOP (2) Chronic kidney disease, stage IV (severe): Code(s): N18.4 - Chronic kidney disease, stage 4 (severe) Status: Chronic Assessment and Plan: baseline creatinine ~ 1.6 - 2.1mg/dl since January 2020 due to CHF, diabetes, age, and vascular disease renal biopsy in July of this year with ATN and arteriosclerosis (3) Urinary tract infection: Code(s): N39.0 - Urinary tract infection, site not specified Status: Acute Assessment and Plan: UA quite suggestive follow-up on cultures on antibiotics (4) Hyperkalemia: Code(s): E87.5 - Hyperkalemia Status: Acute Assessment and Plan: due to spironolactone and entresto along with #1 surprised he was on spironolactone given his issues with hyperkalemia on his last hosptialization follow trend or repeat K+ levels (5) Hypertension: Qualifiers: Hypertension type: unspecified Qualified Code(s): I10 - Essential (primary) hypertension Code(s): I10 - Essential (primary) hypertension Status: Chronic Assessment and Plan: reasonable control at this time spironolactone and Entresto on hold (6) A-fib: Code(s): I48.91 - Unspecified atrial fibrillation Status: Chronic Assessment and Plan: rate control strategy on coumadin Will continue to follow. History of Present Illness Reason for Consult Consult date: 10/26/20 Reason for consult: acute renal failure (on chronic kidney disease) Chief Complaint Chief complaint: urinary tract infection,andrade,hyperkalemia History of Present Illness Narrative: The patient is a 74-year-old male with extensive past medical history as outlined below who presented from his nursing facility to [facility] Emergency room for further evaluation of abnormal labs. The patient had routine blood test done yesterday with regard to the patient's chronic medical issues/ problems which demonstrated an elevated BUN and creatinine above his baseline. These labs were repeated on the assumption that this was a possible lab error but discontinued show elevated BUN and creatinine for above his baseline. Given these laboratory findings he was sent to the emergency room for further evaluation therapy. Workup and evaluation emergency room demonstrated labs consistent with what his nursing facility discovered with an elevated BUN and creatinine above his baseline, specifically, his creatinine was up to 4.1 mg/dL. His potassium was mildly elevated but he had no other critical electrolyte abnormalities. His CBC showed his known chronic anemia but no other significant findings either. His urinalysis was highly suggestive of a urinary tract infection although he gave no symptoms with regard to frequent urination, dysuria, or fevers/chills. Given these laboratory abnormalities and his suspected urinary tract infection, he was started on IV antibiotic therapy after appropriate cultures were drawn but subsequent admission to the hospital. Renal consultation was requested due to his acute kidney injury on top of his chronic kidney disease. He was hospitalized here in October of 2019 with sepsis/septic shock and at that time his kidney function deteriorated and from what it appears, never really returned back to his normal baseline as his creatinine seems to have fluctuated anywhere from 1.6-2.1 mg/dL since January of 2020. His kidney function was relatively stable during his May 2020 hospitalization [facility]
[2020-10-26 15:42] LABS: Carbon Dioxide 20 mmol/L (22-30); Chloride 109 mmol/L (98-107); Potassium 4.8 mmol/L (3.4-5.0); Sodium 139 mmol/L (137-145)
[2020-10-26 15:43] LABS: Anion Gap 10 mmol/L (8-16); Blood Urea Nitrogen 55 mg/dL (9-20); Calcium 8.5 mg/dL (8.4-10.2); Estimated CRCL calculation 16 ml/min; Estimated Glomerular Filt Rate 14; Glucose 139 mg/dL (75-110)
[2020-10-26 15:51] LABS: INR 4.5
[2020-10-26 16:53] LABS: Glucose Point of Care 123 mg/dl (65-105)
[2020-10-26] MEDS: FLUCONAZOLE 150 MG TABLET PO (17:21)
[2020-10-26] MEDS: ASCORBIC ACID 500 MG TABLET PO (17:22)
[2020-10-26] MEDS: PREGABALIN (*CRX) 75 MG CAPSULE PO (17:25)
[2020-10-26] MEDS: SENNOSIDES 8.6 MG TABLET 17.2 MG PO (21:18)
[2020-10-26] MEDS: METOPROLOL TARTRATE 12.5 MG TABLET PO (21:19)
[2020-10-26] MEDS: MELATONIN 3 MG TABLET 6 MG PO (21:19)
[2020-10-26] MEDS: ATORVASTATIN 40 MG TABLET PO (21:19)
[2020-10-26] MEDS: traZODone HCL 25 MG TABLET PO (21:30)
[2020-10-26 22:37] LABS: Glucose Point of Care 194 mg/dl (65-105)
[2020-10-27 06:00] VITALS: BP 125/67; PULSE 69; RESP 18; TEMP 36.4; O2SAT 97
[2020-10-27] MEDS: SODIUM CHLORIDE 0.9% IV 1,000 ML 125 ML IV CONT (06:24)
[2020-10-27 06:33] LABS: Basophils Percent Auto 0.2 % (0.2-1.2); Eosinophils Absolute Auto 2.4 K/mm3 (0-0.3); Eosinophils Percent Auto 27.5 % (0-4.4); Hematocrit 22.6 % (42.0-52.0); Hemoglobin 7.1 g/dL (14.0-18.0); Immature Granulocyte Absolute 0.05 K/mm3 (0.00-0.031); Immature Granulocyte Percent A 0.6 % (0-0.5); Immature Platelet Fraction Pct 7.5 % (0.9-11.2); Lymphocytes Absolute Auto 0.61 K/mm3 (0.9-3.2); Mean Corpuscular HGB Conc 31.4 g/dl (32-36); Mean Corpuscular Hemoglobin 27.3 pg (26-34); Mean Corpuscular Volume 86.9 fl (80-100); Mean Platelet Volume 12.2 fl (7.4-10.4); Monocytes Absolute Auto 0.8 K/mm3 (0.1-0.6); Monocytes Percent Auto 9.1 % (2.6-8.5); Neutrophils Absolute Auto 4.9 K/mm3 (1.3-6.7); Neutrophils Percent Auto 55.6 % (45.5-73.1); Platelet Count Result 96 k/mm3 (150-375); Red Cell Distribution Width 18.2 % (11.5-14.5); White Blood Count 8.7 K/mm3 (4.5-10.0)
[2020-10-27 06:44] LABS: INR 4.5; Prothrombin Time 41.2 Seconds (11.1-14.7)
[2020-10-27 06:48] LABS: Anion Gap 11 mmol/L (8-16); Blood Urea Nitrogen 50 mg/dL (9-20); Calcium 8.4 mg/dL (8.4-10.2); Carbon Dioxide 18 mmol/L (22-30); Chloride 109 mmol/L (98-107); Estimated CRCL calculation 16 ml/min; Estimated Glomerular Filt Rate 14; Glucose 102 mg/dL (75-110); Lactate Dehydrogenase 408 U/L (313-618); Magnesium 1.4 mg/dL (1.6-2.3); Potassium 4.8 mmol/L (3.4-5.0); Sodium 138 mmol/L (137-145)
[2020-10-27 08:27] VITALS: PULSE 69
[2020-10-27] MEDS: METOPROLOL TARTRATE 12.5 MG TABLET PO ×2 (08:27→21:12)
[2020-10-27] MEDS: PREGABALIN (*CRX) 75 MG CAPSULE PO ×2 (08:27→16:55)
[2020-10-27] MEDS: TAMSULOSIN HCL 0.4 MG CAPSULE PO (08:28)
[2020-10-27] MEDS: DULoxetine HCL 30 MG CAPSULE.DR PO (08:28)
[2020-10-27] MEDS: ASCORBIC ACID 500 MG TABLET PO ×2 (08:28→16:55)
[2020-10-27] MEDS: PANTOPRAZOLE 40 MG TABLET PO (08:28)
[2020-10-27] MEDS: FINASTERIDE 5 MG TABLET PO (08:28)
[2020-10-27] MEDS: FERROUS SULFATE 324 MG TABLET PO (08:28)
[2020-10-27] MEDS: LACTIC ACID 12% LOTION 225 BTL 1 APPLIC TOPICAL (08:50)
[2020-10-27 09:49] LABS: Free T4 Free Thyroxine Reflex 1.11 ng/dL (0.78-2.19)
[2020-10-27 10:10] LABS: Glucose Point of Care 169 mg/dl (65-105)
[2020-10-27 10:13] VITALS: BMI 29.4
--- NOTE | 2020-10-27 10:27 | PC.NURSE ---
to ultrasound per stretcher
--- NOTE | 2020-10-27 10:41 | PM.IMPN ---
Progress Note: A&P Assessment and Plan (1) Urinary tract infection in male: Code(s): N39.0 - Urinary tract infection, site not specified Status: Acute Assessment and Plan: Pt's UA suspicious for UTI -He has a hx of pseudomonas UTIs and was started on zosyn admission. Continue with that and adjust as needed -Pt appears asymptomatic with this but has a creatine of 4.1 (baseline 1.9-2.3). -Bladder scan <200 -Obtain renal u/s (2) ANDRADE (acute kidney injury): Code(s): N17.9 - Acute kidney failure, unspecified Status: Acute Assessment and Plan: Unclear etiology at this time, likely due to new medications spironolactone and entresto. -Will obtain renal u/s to assess for hydronephrosis or other pathology in setting of UTI -I called his facility and spoke with nursing staff which state he was started on entresto started recently 09/29/20. He also started spironolactone 10/22. These have been held. -nephrology consulted -Co2 18, start oral bicarb -He had a kidney bx 08/07/20 which showed acute tubular injury (3) Anemia in CKD (chronic kidney disease): Code(s): N18.9 - Chronic kidney disease, unspecified; D63.1 - Anemia in chronic kidney disease Status: Acute Assessment and Plan: Hgb 7.1, slightly lower than baseline -No signs of bleeding -Will obtain anemia studies tomorrow -No symptoms of anemia -Transfuse if <7 (4) Acute hyperkalemia: Code(s): E87.5 - Hyperkalemia Status: Acute Assessment and Plan: Resolved -Likely due to ANDRADE and entresto -hold spironolactone (5) Aortic valve replaced: Code(s): Z95.2 - Presence of prosthetic heart valve Status: Acute Assessment and Plan: Pt has a mechanical valvue -usually INR range is 2.5-3.5 -Warfarin is 4.5 today, hold this and restart once he is closer to range (6) BPH (benign prostatic hyperplasia): Qualifiers: Lower urinary tract symptom presence: unspecified whether lower urinary tract symptoms present Qualified Code(s): N40.0 - Benign prostatic hyperplasia without lower urinary tract symptoms Code(s): N40.0 - Benign prostatic hyperplasia without lower urinary tract symptoms Status: Chronic Assessment and Plan: No evidence of urinary retention on bladder scan - Continue with Proscar and Flomax (7) Hypertension: Qualifiers: Hypertension type: unspecified Qualified Code(s): I10 - Essential (primary) hypertension Code(s): I10 - Essential (primary) hypertension Status: Chronic Assessment and Plan: Last bp 125/67 -Continue with metoprolol -hold entresto and spironolactone (8) Atrial fibrillation: Qualifiers: Atrial fibrillation type: unspecified Qualified Code(s): I48.91 - Unspecified atrial fibrillation Code(s): I48.91 - Unspecified atrial fibrillation Status: Chronic Assessment and Plan: Pt has a hx of this with no current issues -Continue metoprolol -hold coumadin since INR 4.5 (9) Rash: Code(s): R21 - Rash and other nonspecific skin eruption Status: Acute Assessment and Plan: Pt states he has had this chronic rash for 3 years and it does not itch or hurt -will need to see dertmatology outpt for skin biopsy -DDx wide, need to r/u bullous pemphigoid Time Spent With Patient Time with patient: 25 - 35 minutes Subjective Date/time seen: 10/27/20 10:41 Interval history: Pt is a 74 y/o male here for ANDRADE. patient was seen today and states he does not even know why he is here. He has no complaints today other than some itching which is chronic for him. Pt denies nausea, vomiting, fevers, chills, constipation, diarrhea, Dysuria, chest pain, sob, or abdominal pain. He states he has had this rash to his lower extremities for 3 years. It does not itch or hurt. He is not seen a manager french for this that he can recall.
[2020-10-27] MEDS: MAGNESIUM SULF 2 GM/WATER 50ML 2 GM/50 ML BAG IVPB (11:37)
[2020-10-27 11:44] LABS: Glucose Point of Care 114 mg/dl (65-105)
[2020-10-27 12:16] LABS: Glucose Point of Care 121 mg/dl (65-105)
--- NOTE | 2020-10-27 12:49 | PCNSR ---
On 10/27/20, the student,Anabel Cortes, provided care and completed [facility] documentation on this patient. I have reviewed the student's documentation and agree with the findings.
[2020-10-27 14:00] VITALS: BP 144/78; PULSE 79; RESP 16; TEMP 36.6; O2SAT 100
--- NOTE | 2020-10-27 14:12 | P.PNNP_ITS ---
Progress Note: A&P Assessment and Plan (1) ANDRADE (acute kidney injury): Code(s): N17.9 - Acute kidney failure, unspecified Status: Acute Assessment and Plan: * etiology not entirely clear * evidence of UTI by admission UA so that could be contributing(?) * overdiuresis (on bumex)?? * concurrent use of entresto + spironolactone?? * renal ultrasound normal * check urine electrolytes and eosinophils in a few days * follow repeat labs and UOP (2) Chronic kidney disease, stage IV (severe): Code(s): N18.4 - Chronic kidney disease, stage 4 (severe) Status: Chronic Assessment and Plan: * baseline creatinine ~ 1.6 - 2.1mg/dl since January 2020 * due to CHF, diabetes, age, and vascular disease * renal biopsy in July of this year with ATN and arteriosclerosis (3) Urinary tract infection: Code(s): N39.0 - Urinary tract infection, site not specified Status: Acute Assessment and Plan: * UA quite suggestive * follow-up on cultures * on antibiotics (4) Hyperkalemia: Code(s): E87.5 - Hyperkalemia Status: Acute Assessment and Plan: * due to spironolactone and entresto along with #1 * surprised he was on spironolactone given his issues with hyperkalemia on his last hosptialization * follow trend or repeat K+ levels (5) Hypertension: Qualifiers: Hypertension type: unspecified Qualified Code(s): I10 - Essential (primary) hypertension Code(s): I10 - Essential (primary) hypertension Status: Chronic Assessment and Plan: * reasonable control at this time * spironolactone and Entresto on hold (6) A-fib: Code(s): I48.91 - Unspecified atrial fibrillation Status: Chronic Assessment and Plan: * rate control strategy * on coumadin Will continue to follow. Subjective Date/time seen: 10/27/20 14:12 No acute issues or problems to report at this time; no acute complaints voiced; no events/issues overnight or earlier this AM; feels reasonably well. Exam Narrative: Exam Narrative: General: WD/WN male in NAD Heart: normal S1 and S2; no rub Lungs: clear to auscultation Abdomen: soft, nontender, nondistended, positive bowel sounds Extremities: no cyanosis or clubbing; no edema Skin: dressings over LEs Objective Data Vital Signs Vital Signs: Vital Signs Temp Pulse Resp BP Pulse Ox 10/27/20 08:27 69 10/27/20 06:00 36.4 C L 69 18 125/67 97 10/26/20 22:00 36.4 C 94 16 150/66 H 98 10/26/20 21:19 73 Intake/Output Intake/Output: Intake & Output 10/24/20 10/25/20 10/26/20 10/27/20 23:59 23:59 23:59 23:59 Intake Total 3130 1930 Output Total 790 650 Balance 2340 1280 Meds/Results Medications: Active Medications Generic Name Dose Route Start Last Admin Trade Name Freq PRN Reason Stop Dose Admin Hydrocodone Bitart/Acetaminophen 1 tab 10/26/20 14:11 Hydrocodone/Acetaminophen (*Crx) 5-325 Mg Tablet PO Q4H PRN Pain Rated 6-10 Ascorbic Acid 500 mg 10/26/20 17:00 10/27/20 08:28 Ascorbic Acid 500 Mg Tablet PO 500 mg BID MARY Administration Atorvastatin Calcium 40 mg 10/26/20 21:00 10/26/20 21:19 Atorvast
--- NOTE | 2020-10-27 14:12 | PM.PNNEP ---
Progress Note: A&P Assessment and Plan (1) ANDRADE (acute kidney injury): Code(s): N17.9 - Acute kidney failure, unspecified Status: Acute Assessment and Plan: etiology not entirely clear evidence of UTI by admission UA so that could be contributing(?) overdiuresis (on bumex)?? concurrent use of entresto + spironolactone?? renal ultrasound normal check urine electrolytes and eosinophils in a few days follow repeat labs and UOP (2) Chronic kidney disease, stage IV (severe): Code(s): N18.4 - Chronic kidney disease, stage 4 (severe) Status: Chronic Assessment and Plan: baseline creatinine ~ 1.6 - 2.1mg/dl since January 2020 due to CHF, diabetes, age, and vascular disease renal biopsy in July of this year with ATN and arteriosclerosis (3) Urinary tract infection: Code(s): N39.0 - Urinary tract infection, site not specified Status: Acute Assessment and Plan: UA quite suggestive follow-up on cultures on antibiotics (4) Hyperkalemia: Code(s): E87.5 - Hyperkalemia Status: Acute Assessment and Plan: due to spironolactone and entresto along with #1 surprised he was on spironolactone given his issues with hyperkalemia on his last hosptialization follow trend or repeat K+ levels (5) Hypertension: Qualifiers: Hypertension type: unspecified Qualified Code(s): I10 - Essential (primary) hypertension Code(s): I10 - Essential (primary) hypertension Status: Chronic Assessment and Plan: reasonable control at this time spironolactone and Entresto on hold (6) A-fib: Code(s): I48.91 - Unspecified atrial fibrillation Status: Chronic Assessment and Plan: rate control strategy on coumadin Will continue to follow. Subjective Date/time seen: 10/27/20 14:12 No acute issues or problems to report at this time; no acute complaints voiced; no events/issues overnight or earlier this AM; feels reasonably well. Exam Narrative: Exam Narrative: General: WD/WN male in NAD Heart: normal S1 and S2; no rub Lungs: clear to auscultation Abdomen: soft, nontender, nondistended, positive bowel sounds Extremities: no cyanosis or clubbing; no edema Skin: dressings over LEs Objective Data Vital Signs Vital Signs: Vital Signs Temp Pulse Resp BP Pulse Ox 10/27/20 08:27 69 10/27/20 06:00 36.4 C L 69 18 125/67 97 10/26/20 22:00 36.4 C 94 16 150/66 H 98 10/26/20 21:19 73 Intake/Output Intake/Output: Intake & Output 10/24/20 10/25/20 10/26/20 10/27/20 23:59 23:59 23:59 23:59 Intake Total 3130 1930 Output Total 790 650 Balance 2340 1280 Meds/Results Medications: Active Medications Generic Name Dose Route Start Last Admin Trade Name Freq PRN Reason Stop Dose Admin Hydrocodone Bitart/Acetaminophen 1 tab 10/26/20 14:11 Hydrocodone/Acetaminophen (*Crx) 5-325 Mg Tablet PO Q4H PRN Pain Rated 6-10 Ascorbic Acid 500 mg 10/26/20 17:00 10/27/20 08:28 Ascorbic Acid 500 Mg Tablet PO 500 mg BID MARY Administration Atorvastatin Calcium 40 mg 10/26/20 21:00 10/26/20 21:19 Atorvastatin 40 Mg Tablet PO 40 mg HS MARY Administration Bisacodyl 10 mg 10/26/20 14:11 Bisacodyl 10 Mg Suppository RECTAL DAILY PRN Constipation Dextrose 12.5 gm 10/26/20 13:49 Dextrose 50% 25 Gm/50 Ml Syringe IV PUSH PRN PRN Hypoglycemia Protocol Diphenhydramine HCl 25 mg 10/27/20 11:15 Diphenhydramine Hcl Cap 25 Mg Capsule PO Q6H PRN Itching Duloxetine HCl 30 mg 10/27/20 09:00 10/27/20 08:28 Duloxetine Hcl 30 Mg Capsule.Dr PO 30 mg DAILY MARY Administration Ferrous Sulfate 324 mg 10/27/20 08:00 10/27/20 08:28 Ferrous Sulfate 324 Mg Tablet PO 324 mg DAILY@0800 MARY Administration Finasteride 5 mg 10/27/20 09:00 10/27/20 08:28 Finasteride 5 Mg Tablet PO
[2020-10-27] MEDS: SODIUM BICARBONATE TAB 650 MG TABLET PO (16:55)
[2020-10-27 17:53] LABS: Glucose Point of Care 139 mg/dl (65-105)
[2020-10-27] MEDS: MELATONIN 3 MG TABLET 6 MG PO (21:12)
[2020-10-27] MEDS: ATORVASTATIN 40 MG TABLET PO (21:12)
[2020-10-27] MEDS: traZODone HCL 25 MG TABLET PO (21:13)
[2020-10-27] MEDS: SODIUM CHLORIDE 0.9% IV 1,000 ML 80 ML IV CONT (21:15)
[2020-10-27 22:00] VITALS: BP 134/69; PULSE 81; RESP 18; TEMP 36.7; O2SAT 97
[2020-10-28 06:00] VITALS: BP 134/58; PULSE 80; RESP 18; TEMP 37; O2SAT 96
[2020-10-28 06:39] LABS: Hematocrit 23.1 % (42.0-52.0); Hemoglobin 7.2 g/dL (14.0-18.0); Mean Corpuscular HGB Conc 31.2 g/dl (32-36); Mean Corpuscular Hemoglobin 27.9 pg (26-34); Mean Corpuscular Volume 89.5 fl (80-100); Mean Platelet Volume 11.7 fl (7.4-10.4); Platelet Count Result 93 k/mm3 (150-375); Red Blood Count 2.58 M/mm3 (4.6-6.20); Red Cell Distribution Width 18.4 % (11.5-14.5); White Blood Count 9.7 K/mm3 (4.5-10.0)
[2020-10-28 06:54] LABS: INR 3.8; Prothrombin Time 36.4 Seconds (11.1-14.7)
[2020-10-28 07:32] LABS: Iron 27 ug/dL (49-181)
[2020-10-28 07:33] LABS: Anion Gap 10 mmol/L (8-16); Blood Urea Nitrogen 51 mg/dL (9-20); Calcium 8.7 mg/dL (8.4-10.2); Carbon Dioxide 19 mmol/L (22-30); Chloride 110 mmol/L (98-107); Estimated CRCL calculation 16 ml/min; Estimated Glomerular Filt Rate 15; Glucose 146 mg/dL (65-110); Magnesium 1.6 mg/dL (1.6-2.3); Potassium 4.8 mmol/L (3.4-5.0); Sodium 139 mmol/L (137-145)
[2020-10-28 07:39] LABS: Transferrin 162 mg/dL (206-381)
[2020-10-28 07:43] LABS: Percent Iron Saturation 11 % (20-50)
[2020-10-28 08:00] VITALS: PULSE 78; RESP 18; O2SAT 96
[2020-10-28 08:00] LABS: Glucose Point of Care 124 mg/dl (65-105)
[2020-10-28 08:39] LABS: Folic Acid 11.4 ng/mL (2.76->20)
[2020-10-28 09:00] VITALS: PULSE 78
[2020-10-28] MEDS: DULoxetine HCL 30 MG CAPSULE.DR PO (09:00)
[2020-10-28] MEDS: FERROUS SULFATE 324 MG TABLET PO (09:00)
[2020-10-28] MEDS: FINASTERIDE 5 MG TABLET PO (09:00)
[2020-10-28] MEDS: METOPROLOL TARTRATE 12.5 MG TABLET PO ×2 (09:00→21:15)
[2020-10-28] MEDS: PANTOPRAZOLE 40 MG TABLET PO (09:00)
[2020-10-28] MEDS: ASCORBIC ACID 500 MG TABLET PO ×2 (09:00→17:56)
[2020-10-28] MEDS: SODIUM BICARBONATE TAB 650 MG TABLET PO ×2 (09:00→21:15)
[2020-10-28] MEDS: TAMSULOSIN HCL 0.4 MG CAPSULE PO (09:00)
[2020-10-28] MEDS: PREGABALIN (*CRX) 75 MG CAPSULE PO ×2 (09:02→17:58)
[2020-10-28] MEDS: LACTIC ACID 12% LOTION 225 BTL 1 APPLIC TOPICAL (09:02)
[2020-10-28] MEDS: HYDROcodone/acetaminophen (*CRX) 5-325 MG TABLET 1 TAB PO (09:08)
--- NOTE | 2020-10-28 11:59 | PM.IMPN ---
Progress Note: A&P Assessment and Plan (1) Urinary tract infection in male: Code(s): N39.0 - Urinary tract infection, site not specified Status: Acute Assessment and Plan: Pt's UA suspicious for UTI. Ucx growing gram negative bacilli. He has a hx of pseudomonas UTIs and was started on zosyn admission. Continue Zosyn; tailor abx to cultures Await final UCx Monitor (2) ANDRADE (acute kidney injury): Code(s): N17.9 - Acute kidney failure, unspecified Status: Acute Assessment and Plan: Slight improvement/stable Cr from yesterday; 4.00 today. Unclear etiology at this time, although likely due to new medications spironolactone and entresto. Per pt's facility, pt was started on entresto started recently 09/29/20 and spironolactone 10/22. These have been held. Renal US unremarkable. Nephrology consulted and appreciate rec. He had a kidney bx 08/07/20 which showed acute tubular injury Co2 19, cont oral bicarb Cont Nephrology rec Monitor renal function (3) Anemia in CKD (chronic kidney disease): Code(s): N18.9 - Chronic kidney disease, unspecified; D63.1 - Anemia in chronic kidney disease Status: Acute Assessment and Plan: Hgb 7.2, slightly lower than baseline but stable. No s/sx of acute blood loss. Iron panel suggestive of ACD likely from CKD and other comorbid conditions, although possibly component of RENEE with low-normal ferritin. Monitor CBC Transfuse prn Cont PO iron Monitor for s/sx of bleedning (4) Acute hyperkalemia: Code(s): E87.5 - Hyperkalemia Status: Resolved Assessment and Plan: Resolved. Likely due to ANDRADE and entresto Cont to hold spironolactone and Entresto Monitor (5) Aortic valve replaced: Code(s): Z95.2 - Presence of prosthetic heart valve Status: Acute Assessment and Plan: Pt has a mechanical valve; On warfarin; supratherapeutic - INR 3.8 today Would favor holding warfarin one additional day given anemia and consider resuming tomorrow if within or closer to therapeutic range Monitor INR tomorrow (6) BPH (benign prostatic hyperplasia): Qualifiers: Lower urinary tract symptom presence: unspecified whether lower urinary tract symptoms present Qualified Code(s): N40.0 - Benign prostatic hyperplasia without lower urinary tract symptoms Code(s): N40.0 - Benign prostatic hyperplasia without lower urinary tract symptoms Status: Chronic Assessment and Plan: No evidence of urinary retention on bladder scan Continue with Proscar and Flomax (7) Hypertension: Qualifiers: Hypertension type: unspecified Qualified Code(s): I10 - Essential (primary) hypertension Code(s): I10 - Essential (primary) hypertension Status: Chronic Assessment and Plan: Last bp 134/58 Continue with metoprolol hold entresto and spironolactone Monitor (8) Atrial fibrillation: Qualifiers: Atrial fibrillation type: unspecified Qualified Code(s): I48.91 - Unspecified atrial fibrillation Code(s): I48.91 - Unspecified atrial fibrillation Status: Chronic Assessment and Plan: Pt has a hx of this with no current issues. Supratherapeutic today; INR 3.8 Continue metoprolol hold coumadin given supratherapeutic; see above Monitor INR (9) Rash: Code(s): R21 - Rash and other nonspecific skin eruption Status: Acute Assessment and Plan: Pt states he has had this chronic rash for 3 years and it does not itch or hurt; unable to fully assess today. DDx wide will likely need to see dermatology outpt for skin b
[2020-10-28 12:44] LABS: Glucose Point of Care 124 mg/dl (65-105)
[2020-10-28 12:59] VITALS: O2SAT 96
[2020-10-28 13:29] LABS: Total Triiodothyronine (T3) 0.82 NG/ML (0.97-1.69)
[2020-10-28 14:00] VITALS: BP 126/64; PULSE 113; RESP 16; TEMP 36.1; O2SAT 94
--- NOTE | 2020-10-28 14:19 | P.PNNP_ITS ---
Progress Note: A&P Assessment and Plan (1) ANDRADE (acute kidney injury): Code(s): N17.9 - Acute kidney failure, unspecified Status: Acute Assessment and Plan: * etiology not entirely clear * evidence of UTI by admission UA so that could be contributing(?) * overdiuresis (was on bumex)?? -- on gentle IVFs * concurrent use of entresto + spironolactone?? -- on hold now * renal ultrasound normal * check urine electrolytes and eosinophils tomorrow (would have been off diuretics, entresto, and spironolactone for a few days) * follow repeat labs and UOP (2) Chronic kidney disease, stage IV (severe): Code(s): N18.4 - Chronic kidney disease, stage 4 (severe) Status: Chronic Assessment and Plan: * baseline creatinine ~ 1.6 - 2.1mg/dl since January 2020 * due to CHF, diabetes, age, and vascular disease * renal biopsy in July of this year with ATN and arteriosclerosis (3) Urinary tract infection: Code(s): N39.0 - Urinary tract infection, site not specified Status: Acute Assessment and Plan: * urine culture with Pseudomonas * on antibiotics (4) Hyperkalemia: Code(s): E87.5 - Hyperkalemia Status: Acute Assessment and Plan: * due to spironolactone and entresto along with #1 * surprised he was on spironolactone given his issues with hyperkalemia on his last hosptialization * follow trend or repeat K+ levels (5) Hypertension: Qualifiers: Hypertension type: unspecified Qualified Code(s): I10 - Essential (primary) hypertension Code(s): I10 - Essential (primary) hypertension Status: Chronic Assessment and Plan: * reasonable control at this time * spironolactone and Entresto on hold (6) A-fib: Code(s): I48.91 - Unspecified atrial fibrillation Status: Chronic Assessment and Plan: * rate control strategy * on coumadin Will continue to follow. Subjective Date/time seen: 10/28/20 14:19 Continues to feel reasonably well although no significant change with regard to renal function; he denies any other acute issues or problems at this time; he otherwise is in no apparent distress. Exam Narrative: Exam Narrative: General: WD/WN male in NAD Heart: normal S1 and S2; no rub Lungs: clear to auscultation Abdomen: soft, nontender, nondistended, positive bowel sounds Extremities: no cyanosis or clubbing; no edema Skin: dressings over LEs Objective Data Vital Signs Vital Signs: Vital Signs Temp Pulse Resp BP Pulse Ox 10/28/20 12:59 96 10/28/20 09:00 78 10/28/20 08:00 78 18 96 10/28/20 06:00 37.0 C 80 18 134/58 L 96 10/27/20 22:00 36.7 C 81 18 134/69 97 Intake/Output Intake/Output: Intake & Output 10/25/20 10/26/20 10/27/20 10/28/20 23:59 23:59 23:59 23:59 Intake Total 3130 4470 1690 Output Total 790 2000 800 Balance 2340 2470 890 Meds/Results Medications: Active Medications Generic Name Dose Route Start Last Admin Trade Name Freq PRN Reason Stop Dose Admin Hydrocodone Bitart/Acetaminophen 1 tab 10/26/20 14:11 10/28/20 09:08 Hydrocodone/Acetaminophen (*Crx) 5-325 Mg Tablet PO 1 tab Q4H PRN Administration Pain Rated 6-10 Ascorb
--- NOTE | 2020-10-28 14:19 | PM.PNNEP ---
Progress Note: A&P Assessment and Plan (1) ANDRADE (acute kidney injury): Code(s): N17.9 - Acute kidney failure, unspecified Status: Acute Assessment and Plan: etiology not entirely clear evidence of UTI by admission UA so that could be contributing(?) overdiuresis (was on bumex)?? -- on gentle IVFs concurrent use of entresto + spironolactone?? -- on hold now renal ultrasound normal check urine electrolytes and eosinophils tomorrow (would have been off diuretics, entresto, and spironolactone for a few days) follow repeat labs and UOP (2) Chronic kidney disease, stage IV (severe): Code(s): N18.4 - Chronic kidney disease, stage 4 (severe) Status: Chronic Assessment and Plan: baseline creatinine ~ 1.6 - 2.1mg/dl since January 2020 due to CHF, diabetes, age, and vascular disease renal biopsy in July of this year with ATN and arteriosclerosis (3) Urinary tract infection: Code(s): N39.0 - Urinary tract infection, site not specified Status: Acute Assessment and Plan: urine culture with Pseudomonas on antibiotics (4) Hyperkalemia: Code(s): E87.5 - Hyperkalemia Status: Acute Assessment and Plan: due to spironolactone and entresto along with #1 surprised he was on spironolactone given his issues with hyperkalemia on his last hosptialization follow trend or repeat K+ levels (5) Hypertension: Qualifiers: Hypertension type: unspecified Qualified Code(s): I10 - Essential (primary) hypertension Code(s): I10 - Essential (primary) hypertension Status: Chronic Assessment and Plan: reasonable control at this time spironolactone and Entresto on hold (6) A-fib: Code(s): I48.91 - Unspecified atrial fibrillation Status: Chronic Assessment and Plan: rate control strategy on coumadin Will continue to follow. Subjective Date/time seen: 10/28/20 14:19 Continues to feel reasonably well although no significant change with regard to renal function; he denies any other acute issues or problems at this time; he otherwise is in no apparent distress. Exam Narrative: Exam Narrative: General: WD/WN male in NAD Heart: normal S1 and S2; no rub Lungs: clear to auscultation Abdomen: soft, nontender, nondistended, positive bowel sounds Extremities: no cyanosis or clubbing; no edema Skin: dressings over LEs Objective Data Vital Signs Vital Signs: Vital Signs Temp Pulse Resp BP Pulse Ox 10/28/20 12:59 96 10/28/20 09:00 78 10/28/20 08:00 78 18 96 10/28/20 06:00 37.0 C 80 18 134/58 L 96 10/27/20 22:00 36.7 C 81 18 134/69 97 Intake/Output Intake/Output: Intake & Output 10/25/20 10/26/20 10/27/20 10/28/20 23:59 23:59 23:59 23:59 Intake Total 3130 4470 1690 Output Total 790 2000 800 Balance 2340 2470 890 Meds/Results Medications: Active Medications Generic Name Dose Route Start Last Admin Trade Name Freq PRN Reason Stop Dose Admin Hydrocodone Bitart/Acetaminophen 1 tab 10/26/20 14:11 10/28/20 09:08 Hydrocodone/Acetaminophen (*Crx) 5-325 Mg Tablet PO 1 tab Q4H PRN Administration Pain Rated 6-10 Ascorbic Acid 500 mg 10/26/20 17:00 10/28/20 09:00 Ascorbic Acid 500 Mg Tablet PO 500 mg BID MARY Administration Atorvastatin Calcium 40 mg 10/26/20 21:00 10/27/20 21:12 Atorvastatin 40 Mg Tablet PO 40 mg HS MARY Administration Bisacodyl 10 mg 10/26/20 14:11 Bisacodyl 10 Mg Suppository RECTAL DAILY PRN Constipation Dextrose 12.5 gm 10/26/20 13:49 Dextrose 50% 25 Gm/50 Ml Syringe IV PUSH PRN PRN Hypoglycemia Protocol Diphenhydramine HCl 25 mg 10/27/20 11:15 Diphenhydramine Hcl Cap 25 Mg Capsule PO Q6H PRN Itching Duloxetine HCl 30 mg 10/27/20 09:00 10/28/20 09:00 Duloxetine Hcl 30 Mg Capsule.Dr PO 30 mg DAILY MARY Administration Jose Roberto
[2020-10-28] MEDS: SODIUM CHLORIDE 0.9% IV 1,000 ML 80 ML IV CONT (14:57)
[2020-10-28 17:23] LABS: Glucose Point of Care 140 mg/dl (65-105)
[2020-10-28] MEDS: traZODone HCL 25 MG TABLET PO (21:15)
[2020-10-28] MEDS: MELATONIN 3 MG TABLET 6 MG PO (21:15)
[2020-10-28] MEDS: ATORVASTATIN 40 MG TABLET PO (21:15)
[2020-10-28 22:00] VITALS: BP 146/63; PULSE 87; RESP 18; TEMP 36.4; O2SAT 98
[2020-10-29 03:39] LABS: Glucose Point of Care 159 mg/dl (65-105)
[2020-10-29 03:44] VITALS: O2SAT 96
[2020-10-29 06:00] VITALS: BP 136/59; PULSE 73; RESP 16; TEMP 37.1; O2SAT 100
[2020-10-29 06:37] LABS: Hematocrit 23.7 % (42.0-52.0); Hemoglobin 7.2 g/dL (14.0-18.0); Mean Corpuscular HGB Conc 30.4 g/dl (32-36); Mean Corpuscular Hemoglobin 27.4 pg (26-34); Mean Corpuscular Volume 90.1 fl (80-100); Mean Platelet Volume 12.7 fl (7.4-10.4); Platelet Count Result 99 k/mm3 (150-375); Red Blood Count 2.63 M/mm3 (4.6-6.20); Red Cell Distribution Width 18.5 % (11.5-14.5)
[2020-10-29 06:48] LABS: Glucose Point of Care 97 mg/dl (65-105)
[2020-10-29 06:50] LABS: INR 2.8; Prothrombin Time 28.8 Seconds (11.1-14.7)
[2020-10-29 07:01] LABS: Anion Gap 10 mmol/L (8-16); Blood Urea Nitrogen 47 mg/dL (9-20); Carbon Dioxide 18 mmol/L (22-30); Chloride 112 mmol/L (98-107); Estimated CRCL calculation 17 ml/min; Estimated Glomerular Filt Rate 15; Glucose 94 mg/dL (65-110); Magnesium 1.6 mg/dL (1.6-2.3); Potassium 5.1 mmol/L (3.4-5.0); Sodium 140 mmol/L (137-145)
--- NOTE | 2020-10-29 07:54 | P.PNIM_ITS ---
Progress Note: A&P Assessment and Plan (1) Urinary tract infection in male: Code(s): N39.0 - Urinary tract infection, site not specified Status: Acute Assessment and Plan: Pt's UA suspicious for UTI. Ucx growing gram negative bacilli. He has a hx of pseudomonas UTIs and was started on zosyn admission. * Continue Zosyn; tailor abx to cultures * Await final UCx * Monitor (2) ANDRADE (acute kidney injury): Code(s): N17.9 - Acute kidney failure, unspecified Status: Acute Assessment and Plan: Slight improvement/stable Cr from yesterday; 4.00 today. Unclear etiology at this time, although likely due to new medications spironolactone and entresto. Per pt's facility, pt was started on entresto started recently 09/29/20 and spironolactone 10/22. These have been held. Renal US unremarkable. Nephrology consulted and appreciate rec. He had a kidney bx 08/07/20 which showed acute tubular injury * Co2 19, cont oral bicarb * Cont Nephrology rec * Monitor renal function (3) Anemia in CKD (chronic kidney disease): Code(s): N18.9 - Chronic kidney disease, unspecified; D63.1 - Anemia in chronic kidney disease Status: Acute Assessment and Plan: Hgb 7.2, slightly lower than baseline but stable. No s/sx of acute blood loss. Iron panel suggestive of ACD likely from CKD and other comorbid conditions, although possibly component of RENEE with low-normal ferritin. * Monitor CBC * Transfuse prn * Cont PO iron * Monitor for s/sx of bleedning (4) Acute hyperkalemia: Code(s): E87.5 - Hyperkalemia Status: Resolved Assessment and Plan: Resolved. Likely due to ANDRADE and entresto * Cont to hold spironolactone and Entresto * Monitor (5) Aortic valve replaced: Code(s): Z95.2 - Presence of prosthetic heart valve Status: Acute Assessment and Plan: Pt has a mechanical valve; On warfarin; supratherapeutic - INR 3.8 today * Would favor holding warfarin one additional day given anemia and consider resuming tomorrow if within or closer to therapeutic range * Monitor INR tomorrow (6) BPH (benign prostatic hyperplasia): Qualifiers: Lower urinary tract symptom presence: unspecified whether lower urinary tract symptoms present Qualified Code(s): N40.0 - Benign prostatic hyperplasia without lower urinary tract symptoms Code(s): N40.0 - Benign prostatic hyperplasia without lower urinary tract symptoms Status: Chronic Assessment and Plan: No evidence of urinary retention on bladder scan * Continue with Proscar and Flomax (7) Hypertension: Qualifiers: Hypertension type: unspecified Qualified Code(s): I10 - Essential (primary) hypertension Code(s): I10 - Essential (primary) hypertension Status: Chronic Assessment and Plan: Last bp 134/58 * Continue with metoprolol * hold entresto and spironolactone * Monitor (8) Atrial fibrillation: Qualifiers: Atrial fibrillation type: unspecified Qualified Code(s): I48.91 - Unspecified atrial fibrillation Code(s): I48.91 - Unspecified atrial fibrillation Status: Chronic Assessment and Plan: Pt has a hx of this with no current issues
[2020-10-29 08:00] VITALS: PULSE 72; RESP 16; O2SAT 100
[2020-10-29 08:18] VITALS: PULSE 72
[2020-10-29] MEDS: METOPROLOL TARTRATE 12.5 MG TABLET PO ×2 (08:18→21:07)
[2020-10-29] MEDS: DULoxetine HCL 30 MG CAPSULE.DR PO (08:19)
[2020-10-29] MEDS: ASCORBIC ACID 500 MG TABLET PO ×2 (08:19→17:42)
[2020-10-29] MEDS: SODIUM BICARBONATE TAB 650 MG TABLET PO ×2 (08:19→17:42)
[2020-10-29] MEDS: FERROUS SULFATE 324 MG TABLET PO (08:19)
[2020-10-29] MEDS: TAMSULOSIN HCL 0.4 MG CAPSULE PO (08:19)
[2020-10-29] MEDS: PANTOPRAZOLE 40 MG TABLET PO (08:19)
[2020-10-29] MEDS: FINASTERIDE 5 MG TABLET PO (08:19)
[2020-10-29] MEDS: LACTIC ACID 12% LOTION 225 BTL 1 APPLIC TOPICAL (08:22)
[2020-10-29] MEDS: PREGABALIN (*CRX) 75 MG CAPSULE PO ×2 (08:22→17:41)
[2020-10-29 12:28] LABS: Glucose Point of Care 179 mg/dl (65-105)
--- NOTE | 2020-10-29 13:24 | PM.IMPN ---
Progress Note: A&P Assessment and Plan (1) Urinary tract infection in male: Code(s): N39.0 - Urinary tract infection, site not specified Status: Acute Assessment and Plan: Pt's UA suspicious for UTI. He has a hx of pseudomonas UTIs and was started on zosyn admission. Urine culture during this admission grew Pseudomonas aeruginosa which is resistant to cefepime. Zosyn has been switched to imipenem. Blood culture have been negative so far. Monitor (2) ANDRADE (acute kidney injury): Code(s): N17.9 - Acute kidney failure, unspecified Status: Acute Assessment and Plan: Slight improvement/stable Cr from yesterday Which is 3.9 today. Unclear etiology at this time, although likely due to new medications spironolactone and entresto, Urinary tract infection and dehydration. Per pt's facility, pt was started on entresto started recently 09/29/20 and spironolactone 10/22. both Entresto and spironolactone has been put on hold here. Renal US unremarkable. Nephrology consulted and appreciate rec. He had a kidney bx 08/07/20 which showed acute tubular injury. Co2 18, cont oral bicarb. he had a blood gas 2 days ago which showed pH of 7.20 and pCO2 of 28.7. Clinically he does not seem to be tachypneic. Do not feel that his gas need to be repeat repeated. Nephrology follow-up Monitor renal function And electrolytes continue gentle IV fluid hydration. Strict intake output record and daily weight. (3) Anemia in CKD (chronic kidney disease): Code(s): N18.9 - Chronic kidney disease, unspecified; D63.1 - Anemia in chronic kidney disease Status: Acute Assessment and Plan: Hgb 7.2, slightly lower than baseline but stable. No s/sx of acute blood loss. Iron panel suggestive of ACD likely from CKD and other comorbid conditions, although possibly component of RENEE with low-normal ferritin. Monitor CBC Transfuse prn Cont PO iron Monitor for s/sx of bleedning (4) Acute hyperkalemia: Code(s): E87.5 - Hyperkalemia Status: Resolved Assessment and Plan: Resolved. Likely due to ANDRADE and entresto Cont to hold spironolactone and Entresto Monitor (5) Aortic valve replaced: Code(s): Z95.2 - Presence of prosthetic heart valve Status: Acute Assessment and Plan: Pt has a mechanical valve; On warfarin; INR therapeutic today with 2.8. He takes 4 mg of Coumadin on Friday and Friday. I will give him 4 mg of Coumadin today. Monitor INR tomorrow Follow for any signs of bleeding. (6) BPH (benign prostatic hyperplasia): Qualifiers: Lower urinary tract symptom presence: unspecified whether lower urinary tract symptoms present Qualified Code(s): N40.0 - Benign prostatic hyperplasia without lower urinary tract symptoms Code(s): N40.0 - Benign prostatic hyperplasia without lower urinary tract symptoms Status: Chronic Assessment and Plan: No evidence of urinary retention on bladder scan Continue with Proscar and Flomax (7) Hypertension: Qualifiers: Hypertension type: unspecified Qualified Code(s): I10 - Essential (primary) hypertension Code(s): I10 - Essential (primary) hypertension Status: Chronic Assessment and Plan: Last bp 134/58 Continue with metoprolol hold entresto and spironolactone Monitor (8) Atrial fibrillation: Qualifiers: Atrial fibrillation type: unspecified Qualified Code(s): I48.91 - Unspecified atrial fibrillation Code(s): I48.91 - Unspecified atrial fibrillation Status: Chronic Assessment and Plan: Pt has a hx of this with no current iss
[2020-10-29 14:00] VITALS: BP 129/82; PULSE 81; RESP 20; TEMP 36.3; O2SAT 97
--- NOTE | 2020-10-29 14:48 | P.PNNP_ITS ---
Progress Note: A&P Assessment and Plan (1) ANDRADE (acute kidney injury): Code(s): N17.9 - Acute kidney failure, unspecified Status: Acute Assessment and Plan: * etiology not entirely clear * evidence of UTI by admission UA so that could be contributing(?) * overdiuresis (was on bumex)?? -- on gentle IVFs * concurrent use of entresto + spironolactone?? -- on hold now * renal ultrasound normal * check urine electrolytes and eosinophils today (would have been off diuretics, entresto, and spironolactone for a few days) * follow repeat labs and UOP (2) Chronic kidney disease, stage IV (severe): Code(s): N18.4 - Chronic kidney disease, stage 4 (severe) Status: Chronic Assessment and Plan: * baseline creatinine ~ 1.6 - 2.1mg/dl since January 2020 * due to CHF, diabetes, age, and vascular disease * renal biopsy in July of this year with ATN and arteriosclerosis (3) Urinary tract infection: Code(s): N39.0 - Urinary tract infection, site not specified Status: Acute Assessment and Plan: * urine culture with Pseudomonas * on antibiotics * check bladder scan (4) Hyperkalemia: Code(s): E87.5 - Hyperkalemia Status: Acute Assessment and Plan: * due to spironolactone and entresto along with #1 * surprised he was on spironolactone given his issues with hyperkalemia on his last hosptialization * follow trend or repeat K+ levels (5) Hypertension: Qualifiers: Hypertension type: unspecified Qualified Code(s): I10 - Essential (primary) hypertension Code(s): I10 - Essential (primary) hypertension Status: Chronic Assessment and Plan: * reasonable control at this time * spironolactone and Entresto on hold (6) A-fib: Code(s): I48.91 - Unspecified atrial fibrillation Status: Chronic Assessment and Plan: * rate control strategy * on coumadin Will continue to follow. Subjective Date/time seen: 10/29/20 14:48 No new complaints at this time; no events/issues overnight or earlier this AM; no other complaints voiced other than some non-specific abdominal pain on my visit. Exam Narrative: Exam Narrative: General: WD/WN male in NAD Heart: normal S1 and S2; no rub Lungs: clear to auscultation Abdomen: soft, nontender, nondistended, positive bowel sounds Extremities: no cyanosis or clubbing; no edema Skin: dressings over LEs in place Objective Data Vital Signs Vital Signs: Vital Signs Temp Pulse Resp BP Pulse Ox 10/29/20 14:00 36.3 C L 81 20 129/82 97 10/29/20 08:18 72 10/29/20 08:00 72 16 100 10/29/20 06:00 37.1 C 73 16 136/59 L 100 10/29/20 03:44 96 10/28/20 22:00 36.4 C 87 18 146/63 H 98 Intake/Output Intake/Output: Intake & Output 10/26/20 10/27/20 10/28/20 10/29/20 23:59 23:59 23:59 23:59 Intake Total 3130 4470 2960 1100 Output Total 790 2000 1300 1150 Balance 2340 2470 1660 -50 Meds/Results Medications: Active Medications Generic Name Dose Route Start Last Admin Trade Name Freq PRN Reason Stop Dose Admin Hydrocodone Bitart/Acetaminophen 1 tab 10/26/20 14:11 10/28/20 09:08 Hydrocodone/Acetaminophen (*Crx) 5-325 Mg Tablet PO 1 tab Q
--- NOTE | 2020-10-29 14:48 | PM.PNNEP ---
Progress Note: A&P Assessment and Plan (1) ANDRADE (acute kidney injury): Code(s): N17.9 - Acute kidney failure, unspecified Status: Acute Assessment and Plan: etiology not entirely clear evidence of UTI by admission UA so that could be contributing(?) overdiuresis (was on bumex)?? -- on gentle IVFs concurrent use of entresto + spironolactone?? -- on hold now renal ultrasound normal check urine electrolytes and eosinophils today (would have been off diuretics, entresto, and spironolactone for a few days) follow repeat labs and UOP (2) Chronic kidney disease, stage IV (severe): Code(s): N18.4 - Chronic kidney disease, stage 4 (severe) Status: Chronic Assessment and Plan: baseline creatinine ~ 1.6 - 2.1mg/dl since January 2020 due to CHF, diabetes, age, and vascular disease renal biopsy in July of this year with ATN and arteriosclerosis (3) Urinary tract infection: Code(s): N39.0 - Urinary tract infection, site not specified Status: Acute Assessment and Plan: urine culture with Pseudomonas on antibiotics check bladder scan (4) Hyperkalemia: Code(s): E87.5 - Hyperkalemia Status: Acute Assessment and Plan: due to spironolactone and entresto along with #1 surprised he was on spironolactone given his issues with hyperkalemia on his last hosptialization follow trend or repeat K+ levels (5) Hypertension: Qualifiers: Hypertension type: unspecified Qualified Code(s): I10 - Essential (primary) hypertension Code(s): I10 - Essential (primary) hypertension Status: Chronic Assessment and Plan: reasonable control at this time spironolactone and Entresto on hold (6) A-fib: Code(s): I48.91 - Unspecified atrial fibrillation Status: Chronic Assessment and Plan: rate control strategy on coumadin Will continue to follow. Subjective Date/time seen: 10/29/20 14:48 No new complaints at this time; no events/issues overnight or earlier this AM; no other complaints voiced other than some non-specific abdominal pain on my visit. Exam Narrative: Exam Narrative: General: WD/WN male in NAD Heart: normal S1 and S2; no rub Lungs: clear to auscultation Abdomen: soft, nontender, nondistended, positive bowel sounds Extremities: no cyanosis or clubbing; no edema Skin: dressings over LEs in place Objective Data Vital Signs Vital Signs: Vital Signs Temp Pulse Resp BP Pulse Ox 10/29/20 14:00 36.3 C L 81 20 129/82 97 10/29/20 08:18 72 10/29/20 08:00 72 16 100 10/29/20 06:00 37.1 C 73 16 136/59 L 100 10/29/20 03:44 96 10/28/20 22:00 36.4 C 87 18 146/63 H 98 Intake/Output Intake/Output: Intake & Output 10/26/20 10/27/20 10/28/20 10/29/20 23:59 23:59 23:59 23:59 Intake Total 3130 4470 2960 1100 Output Total 790 2000 1300 1150 Balance 2340 2470 1660 -50 Meds/Results Medications: Active Medications Generic Name Dose Route Start Last Admin Trade Name Freq PRN Reason Stop Dose Admin Hydrocodone Bitart/Acetaminophen 1 tab 10/26/20 14:11 10/28/20 09:08 Hydrocodone/Acetaminophen (*Crx) 5-325 Mg Tablet PO 1 tab Q4H PRN Administration Pain Rated 6-10 Ascorbic Acid 500 mg 10/26/20 17:00 10/29/20 17:42 Ascorbic Acid 500 Mg Tablet PO 500 mg BID MARY Administration Atorvastatin Calcium 40 mg 10/26/20 21:00 10/28/20 21:15 Atorvastatin 40 Mg Tablet PO 40 mg HS MARY Administration Bisacodyl 10 mg 10/26/20 14:11 Bisacodyl 10 Mg Suppository RECTAL DAILY PRN Constipation Dextrose 12.5 gm 10/26/20 13:49 Dextrose 50% 25 Gm/50 Ml Syringe IV PUSH PRN PRN Hypoglycemia Protocol Diphenhydramine HCl 25 mg 10/27/20 11:15 Diphenhydramine Hcl Cap 25 Mg Capsule PO Q6H PRN Itching Duloxetine HCl 30 mg 10/27/20 09:00 10/29/20 08:19 Duloxetine Hcl 30 Mg
[2020-10-29] MEDS: WARFARIN (*PBKC) 4 MG TABLET PO (17:42)
[2020-10-29 17:48] LABS: Glucose Point of Care 119 mg/dl (65-105)
[2020-10-29] MEDS: SODIUM CHLORIDE 0.9% IV 1,000 ML 80 ML IV CONT (19:01)
[2020-10-29] MEDS: ATORVASTATIN 40 MG TABLET PO (21:07)
[2020-10-29] MEDS: MELATONIN 3 MG TABLET 6 MG PO (21:07)
[2020-10-29] MEDS: traZODone HCL 25 MG TABLET PO (21:07)
[2020-10-29 21:31] LABS: Glucose Point of Care 202 mg/dl (65-105)
[2020-10-29 22:00] VITALS: BP 127/78; PULSE 88; RESP 20; TEMP 36.5; O2SAT 96
[2020-10-30 01:56] LABS: Creatinine Urine 62.8 mg/dL; Sodium Urine Random 75 meq/L
[2020-10-30 02:16] LABS: Eosinophil Urine None Seen % (None Seen)
[2020-10-30 06:00] VITALS: BP 135/71; PULSE 81; RESP 18; TEMP 36.3; O2SAT 100
[2020-10-30 06:48] LABS: Basophils Percent Auto 0.3 % (0.2-1.2); Eosinophils Absolute Auto 2.5 K/mm3 (0-0.3); Eosinophils Percent Auto 24.5 % (0-4.4); Hemoglobin 7.1 g/dL (14.0-18.0); Immature Granulocyte Absolute 0.04 K/mm3 (0.00-0.031); Immature Granulocyte Percent A 0.4 % (0-0.5); Lymphocytes Absolute Auto 0.56 K/mm3 (0.9-3.2); Lymphocytes Percent Auto 5.6 % (18.3-44.2); Mean Corpuscular HGB Conc 30.9 g/dl (32-36); Mean Corpuscular Volume 87.5 fl (80-100); Mean Platelet Volume 12.1 fl (7.4-10.4); Monocytes Percent Auto 9.6 % (2.6-8.5); Neutrophils Percent Auto 59.6 % (45.5-73.1); Platelet Count Result 103 k/mm3 (150-375); Red Blood Count 2.63 M/mm3 (4.6-6.20); Red Cell Distribution Width 18.5 % (11.5-14.5)
[2020-10-30 06:56] LABS: INR 2.7; Prothrombin Time 27.9 Seconds (11.1-14.7)
[2020-10-30] MEDS: HYDROcodone/acetaminophen (*CRX) 5-325 MG TABLET 1 TAB PO ×2 (06:58→13:30)
[2020-10-30 06:59] LABS: Anion Gap 10 mmol/L (8-16); Blood Urea Nitrogen 44 mg/dL (9-20); Carbon Dioxide 17 mmol/L (22-30); Chloride 112 mmol/L (98-107); Estimated CRCL calculation 18 ml/min; Estimated Glomerular Filt Rate 17; Glucose 101 mg/dL (65-110); Magnesium 1.5 mg/dL (1.6-2.3); Phosphorus 5.7 mg/dL (2.5-4.5); Potassium 5.1 mmol/L (3.4-5.0); Sodium 139 mmol/L (137-145)
[2020-10-30] MEDS: SODIUM CHLORIDE 0.9% IV 1,000 ML 80 ML IV CONT (08:41)
[2020-10-30] MEDS: PREGABALIN (*CRX) 75 MG CAPSULE PO ×2 (08:42→16:23)
[2020-10-30 08:43] VITALS: PULSE 84
[2020-10-30] MEDS: MAGNESIUM OXIDE 200 MG TABLET PO ×2 (08:43→22:02)
[2020-10-30] MEDS: METOPROLOL TARTRATE 12.5 MG TABLET PO ×2 (08:43→22:03)
[2020-10-30] MEDS: TAMSULOSIN HCL 0.4 MG CAPSULE PO (08:44)
[2020-10-30] MEDS: FINASTERIDE 5 MG TABLET PO (08:44)
[2020-10-30] MEDS: FERROUS SULFATE 324 MG TABLET PO (08:44)
[2020-10-30] MEDS: DULoxetine HCL 30 MG CAPSULE.DR PO (08:44)
[2020-10-30] MEDS: SODIUM BICARBONATE TAB 650 MG TABLET PO ×2 (08:44→16:24)
[2020-10-30] MEDS: PANTOPRAZOLE 40 MG TABLET PO (08:44)
[2020-10-30] MEDS: ASCORBIC ACID 500 MG TABLET PO ×2 (08:44→16:25)
[2020-10-30 08:47] VITALS: RESP 18; O2SAT 99
[2020-10-30] MEDS: LACTIC ACID 12% LOTION 225 BTL 1 APPLIC TOPICAL (08:47)
[2020-10-30 08:55] LABS: Glucose Point of Care 234 mg/dl (65-105)
[2020-10-30] MEDS: INSULIN ASPART (*BKC) 100 UNITS/ML SUB-Q (08:55)
[2020-10-30 11:42] LABS: Glucose Point of Care 126 mg/dl (65-105)
[2020-10-30 14:00] VITALS: BP 140/72; PULSE 90; RESP 20; TEMP 36.7; O2SAT 98
[2020-10-30 16:22] LABS: Glucose Point of Care 164 mg/dl (65-105)
[2020-10-30] MEDS: WARFARIN (*PBKC) 4 MG TABLET PO (16:24)
--- NOTE | 2020-10-30 16:31 | PM.IMPN ---
Progress Note: A&P Assessment and Plan (1) Urinary tract infection in male: Code(s): N39.0 - Urinary tract infection, site not specified Status: Acute Assessment and Plan: urine culture positive for Pseudomonas and patient was transition to imipenem ( day 3) Blood culture have been negative so far. (2) ANDRADE (acute kidney injury): Code(s): N17.9 - Acute kidney failure, unspecified Status: Acute Assessment and Plan: Patient's creatinine is improving from 4.2 at its peak to 3.6 today -Unclear etiology at this time, although likely due to new medications spironolactone and entresto, urinary tract infection and dehydration. -Per pt's facility, pt was started on entresto started recently 09/29/20 and spironolactone 10/22. both Entresto and spironolactone has been put on hold -Renal US unremarkable. -He had a kidney bx 08/07/20 which showed acute tubular injury. -Continue oral bicarb -Nephrology follow-up -I am going to stop the fluids as pt has significant crackles. Will check CXR. (3) Anemia in CKD (chronic kidney disease): Code(s): N18.9 - Chronic kidney disease, unspecified; D63.1 - Anemia in chronic kidney disease Status: Acute Assessment and Plan: Hgb 7.1, slightly lower than baseline but stable. No s/sx of acute blood loss. Iron panel suggestive of ACD likely from CKD and other comorbid conditions, although possibly component of RENEE with low-normal ferritin. Monitor CBC Transfuse prn Cont PO iron Monitor for s/sx of bleedning (4) Acute hyperkalemia: Code(s): E87.5 - Hyperkalemia Status: Resolved Assessment and Plan: 5.1 today Cont to hold spironolactone and Entresto Monitor with BMP today (5) Aortic valve replaced: Code(s): Z95.2 - Presence of prosthetic heart valve Status: Acute Assessment and Plan: Pt has a mechanical valve; On warfarin; INR therapeutic today with 2.7. -will restart home coumadin (6) BPH (benign prostatic hyperplasia): Qualifiers: Lower urinary tract symptom presence: unspecified whether lower urinary tract symptoms present Qualified Code(s): N40.0 - Benign prostatic hyperplasia without lower urinary tract symptoms Code(s): N40.0 - Benign prostatic hyperplasia without lower urinary tract symptoms Status: Chronic Assessment and Plan: No evidence of urinary retention on bladder scan -Continue with Proscar and Flomax (7) Hypertension: Qualifiers: Hypertension type: unspecified Qualified Code(s): I10 - Essential (primary) hypertension Code(s): I10 - Essential (primary) hypertension Status: Chronic Assessment and Plan: Last bp 140/72 Continue with metoprolol hold entresto and spironolactone Monitor (8) Atrial fibrillation: Qualifiers: Atrial fibrillation type: unspecified Qualified Code(s): I48.91 - Unspecified atrial fibrillation Code(s): I48.91 - Unspecified atrial fibrillation Status: Chronic Assessment and Plan: Pt has a hx of this with no current issues. Therapeutic INR today. Continue metoprolol For rate control continue coumadin (9) Rash: Code(s): R21 - Rash and other nonspecific skin eruption Status: Acute Assessment and Plan: Pt states he has had this chronic rash for 3 years and it does not itch or hurt; unable to fully assess. DDx wide will likely need to see dermatology outpt for skin biopsy Time Spent With Patient Time with patient: 25 - 35 minutes Subjective Date/time seen: 10/30/20 16:31 Interval history: Pt is a 74-year-old male here for UTI and ANDRADE. Patient was seen today and has no complaints. Pt denies nausea, vomiting, fevers, chills, constipation, diarrhea, chest pain, sob, or abdominal pain. He has some chronic back pain that he says is at its baseline. Review of Systems
--- NOTE | 2020-10-30 16:38 | P.PNNP_ITS ---
Progress Note: A&P Assessment and Plan (1) ANDRADE (acute kidney injury): Code(s): N17.9 - Acute kidney failure, unspecified Status: Acute Assessment and Plan: * ANDRADE * urine electrolytes non pre renal * urine eosinophils negative * ultrasound negative * UA shows blood and leukocytes. Urine culture showed Pseudomonas. * He is on imipenem. * concurrent use of entresto + spironolactone?? -- on hold now * He is very swollen. Does not look dehydrated at all. Will stop the IV fluids and try diuretics. (2) Chronic kidney disease, stage IV (severe): Code(s): N18.4 - Chronic kidney disease, stage 4 (severe) Status: Chronic Assessment and Plan: * baseline creatinine ~ 1.6 - 2.1mg/dl since January 2020 * due to CHF, diabetes, age, and vascular disease * renal biopsy in July of this year with ATN and arteriosclerosis (3) Urinary tract infection: Code(s): N39.0 - Urinary tract infection, site not specified Status: Acute Assessment and Plan: * urine culture with Pseudomonas * on antibiotics * check bladder scan (4) Hyperkalemia: Code(s): E87.5 - Hyperkalemia Status: Acute Assessment and Plan: * due to spironolactone and entresto . Off of these. * Potassium 5.1 today. (5) Hypertension: Qualifiers: Hypertension type: unspecified Qualified Code(s): I10 - Essential (primary) hypertension Code(s): I10 - Essential (primary) hypertension Status: Chronic Assessment and Plan: * reasonable control at this time (6) A-fib: Code(s): I48.91 - Unspecified atrial fibrillation Status: Chronic Assessment and Plan: * rate control strategy * on coumadin Subjective Date/time seen: 10/30/20 16:38 Interval history: patient is alert. He is uncomfortable with all the swelling. No shortness of breath Exam Narrative: Exam Narrative: General: WD/WN male in NAD Heart: normal S1 and S2; no rub Lungs: clear Abdomen: soft, nontender, nondistended, positive bowel sounds Extremities: no cyanosis or clubbing; no edema Skin: dressings over LEs in place Objective Data Vital Signs Vital Signs: Vital Signs - 24 hr 10/29/20 22:00 10/30/20 06:00 10/30/20 08:43 Temperature 36.5 C 36.3 C L Pulse Rate 88 81 84 Respiratory Rate 20 18 Blood Pressure 127/78 135/71 Pulse Oximetry 96 100 10/30/20 08:47 10/30/20 14:00 Temperature 36.7 C Pulse Rate 90 Respiratory Rate 18 20 Blood Pressure 140/72 Pulse Oximetry 99 98 Intake/Output Intake/Output: Intake & Output 10/27/20 10/28/20 10/29/20 10/30/20 23:59 23:59 23:59 23:59 Intake Total 4470 2960 2540 2060 Output Total 1999 1300 1150 800 Balance 2470 1660 1390 1260 Meds/Results Medications: Active Medications Generic Name Dose Route Start Last Admin Trade Name Freq PRN Reason Stop Dose Admin Hydrocodone Bitart/Acetaminophen 1 tab 10/26/20 14:11 10/30/20 13:30 Hydrocodone/Acetaminophen (*Crx) 5-325 Mg Tablet PO 1 tab Q4H PRN Administration Pain Rated 6-10 Ascorbic Acid 500 mg 10/26/20 17:00 10/30/20 16:25 Ascorbic Acid 500 Mg Tablet PO 500 mg B
--- NOTE | 2020-10-30 16:38 | PM.PNNEP ---
Progress Note: A&P Assessment and Plan (1) ANDRADE (acute kidney injury): Code(s): N17.9 - Acute kidney failure, unspecified Status: Acute Assessment and Plan: ANDRADE urine electrolytes non pre renal urine eosinophils negative ultrasound negative UA shows blood and leukocytes. Urine culture showed Pseudomonas. He is on imipenem. concurrent use of entresto + spironolactone?? -- on hold now He is very swollen. Does not look dehydrated at all. Will stop the IV fluids and try diuretics. (2) Chronic kidney disease, stage IV (severe): Code(s): N18.4 - Chronic kidney disease, stage 4 (severe) Status: Chronic Assessment and Plan: baseline creatinine ~ 1.6 - 2.1mg/dl since January 2020 due to CHF, diabetes, age, and vascular disease renal biopsy in July of this year with ATN and arteriosclerosis (3) Urinary tract infection: Code(s): N39.0 - Urinary tract infection, site not specified Status: Acute Assessment and Plan: urine culture with Pseudomonas on antibiotics check bladder scan (4) Hyperkalemia: Code(s): E87.5 - Hyperkalemia Status: Acute Assessment and Plan: due to spironolactone and entresto . Off of these. Potassium 5.1 today. (5) Hypertension: Qualifiers: Hypertension type: unspecified Qualified Code(s): I10 - Essential (primary) hypertension Code(s): I10 - Essential (primary) hypertension Status: Chronic Assessment and Plan: reasonable control at this time (6) A-fib: Code(s): I48.91 - Unspecified atrial fibrillation Status: Chronic Assessment and Plan: rate control strategy on coumadin Subjective Date/time seen: 10/30/20 16:38 Interval history: patient is alert. He is uncomfortable with all the swelling. No shortness of breath Exam Narrative: Exam Narrative: General: WD/WN male in NAD Heart: normal S1 and S2; no rub Lungs: clear Abdomen: soft, nontender, nondistended, positive bowel sounds Extremities: no cyanosis or clubbing; no edema Skin: dressings over LEs in place Objective Data Vital Signs Vital Signs: Vital Signs - 24 hr 10/29/20 22:00 10/30/20 06:00 10/30/20 08:43 Temperature 36.5 C 36.3 C L Pulse Rate 88 81 84 Respiratory Rate 20 18 Blood Pressure 127/78 135/71 Pulse Oximetry 96 100 10/30/20 08:47 10/30/20 14:00 Temperature 36.7 C Pulse Rate 90 Respiratory Rate 18 20 Blood Pressure 140/72 Pulse Oximetry 99 98 Intake/Output Intake/Output: Intake & Output 10/27/20 10/28/20 10/29/20 10/30/20 23:59 23:59 23:59 23:59 Intake Total 4470 2960 2540 2060 Output Total 1999 1300 1150 800 Balance 2470 1660 1390 1260 Meds/Results Medications: Active Medications Generic Name Dose Route Start Last Admin Trade Name Freq PRN Reason Stop Dose Admin Hydrocodone Bitart/Acetaminophen 1 tab 10/26/20 14:11 10/30/20 13:30 Hydrocodone/Acetaminophen (*Crx) 5-325 Mg Tablet PO 1 tab Q4H PRN Administration Pain Rated 6-10 Ascorbic Acid 500 mg 10/26/20 17:00 10/30/20 16:25 Ascorbic Acid 500 Mg Tablet PO 500 mg BID MARY Administration Atorvastatin Calcium 40 mg 10/26/20 21:00 10/29/20 21:07 Atorvastatin 40 Mg Tablet PO 40 mg HS MARY Administration Bisacodyl 10 mg 10/26/20 14:11 Bisacodyl 10 Mg Suppository RECTAL DAILY PRN Constipation Dextrose 12.5 gm 10/26/20 13:49 Dextrose 50% 25 Gm/50 Ml Syringe IV PUSH PRN PRN Hypoglycemia Protocol Diphenhydramine HCl 25 mg 10/27/20 11:15 Diphenhydramine Hcl Cap 25 Mg Capsule PO Q6H PRN Itching Duloxetine HCl 30 mg 10/27/20 09:00 10/30/20 08:44 Duloxetine Hcl 30 Mg Capsule.Dr PO 30 mg DAILY MARY Administration Ferrous Sulfate 324 mg 10/27/20 08:00 10/30/20 08:44 Ferrous Sulfate 324 Mg Tablet PO 324 mg DAILY@0800 [facility] Administration Finasteride 5
[2020-10-30] MEDS: BUMETANIDE INJ 1 MG/4 ML VIAL IV PUSH (18:04)
[2020-10-30 22:00] VITALS: BP 140/62; PULSE 89; RESP 18; TEMP 36.8; O2SAT 97
[2020-10-30 22:01] LABS: Glucose Point of Care 176 mg/dl (65-105)
[2020-10-30] MEDS: ATORVASTATIN 40 MG TABLET PO (22:02)
[2020-10-30 22:03] VITALS: PULSE 89
[2020-10-30] MEDS: traZODone HCL 25 MG TABLET PO (22:04)
[2020-10-30] MEDS: SENNOSIDES 8.6 MG TABLET 17.2 MG PO (22:10)
[2020-10-30] MEDS: MELATONIN 3 MG TABLET 6 MG PO (22:10)
[2020-10-31 06:00] VITALS: BP 147/76; PULSE 100; RESP 18; TEMP 36.8; O2SAT 97
[2020-10-31 06:23] LABS: Hematocrit 23.1 % (42.0-52.0); Hemoglobin 7.3 g/dL (14.0-18.0)
[2020-10-31 06:38] LABS: INR 3.6; Prothrombin Time 34.8 Seconds (11.1-14.7)
[2020-10-31 06:39] LABS: Albumin Level 3.5 g/dL (3.5-5.1); Anion Gap 10 mmol/L (8-16); Blood Urea Nitrogen 41 mg/dL (9-20); Calcium 8.9 mg/dL (8.4-10.2); Carbon Dioxide 19 mmol/L (22-30); Chloride 111 mmol/L (98-107); Estimated CRCL calculation 18 ml/min; Estimated Glomerular Filt Rate 16; Glucose 129 mg/dL (65-110); Phosphorus 5.8 mg/dL (2.5-4.5); Potassium 5.1 mmol/L (3.4-5.0); Sodium 140 mmol/L (137-145)
[2020-10-31 08:25] VITALS: PULSE 95
[2020-10-31] MEDS: SODIUM BICARBONATE TAB 650 MG TABLET PO ×2 (08:25→17:27)
[2020-10-31] MEDS: MAGNESIUM OXIDE 200 MG TABLET PO ×2 (08:25→20:39)
[2020-10-31] MEDS: TAMSULOSIN HCL 0.4 MG CAPSULE PO (08:25)
[2020-10-31] MEDS: METOPROLOL TARTRATE 12.5 MG TABLET PO ×2 (08:25→20:40)
[2020-10-31] MEDS: PREGABALIN (*CRX) 75 MG CAPSULE PO ×2 (08:25→17:26)
[2020-10-31] MEDS: PANTOPRAZOLE 40 MG TABLET PO (08:25)
[2020-10-31] MEDS: BUMETANIDE INJ 1 MG/4 ML VIAL IV PUSH ×2 (08:25→17:27)
[2020-10-31] MEDS: FERROUS SULFATE 324 MG TABLET PO (08:25)
[2020-10-31] MEDS: FINASTERIDE 5 MG TABLET PO (08:26)
[2020-10-31] MEDS: ASCORBIC ACID 500 MG TABLET PO ×2 (08:26→17:26)
[2020-10-31] MEDS: DULoxetine HCL 30 MG CAPSULE.DR PO (08:26)
[2020-10-31] MEDS: LACTIC ACID 12% LOTION 225 BTL 1 APPLIC TOPICAL (08:28)
[2020-10-31 08:45] LABS: Glucose Point of Care 116 mg/dl (65-105)
[2020-10-31] MEDS: diphenhydrAMINE HCl CAP 25 MG CAPSULE PO ×2 (09:01→20:46)
--- NOTE | 2020-10-31 11:23 | P.PNNP_ITS ---
Progress Note: A&P Assessment and Plan (1) ANDRADE (acute kidney injury): Code(s): N17.9 - Acute kidney failure, unspecified Status: Acute Assessment and Plan: * ANDRADE * urine electrolytes non pre renal * urine eosinophils negative * ultrasound negative * UA shows blood and leukocytes. Urine culture showed Pseudomonas. * He is on imipenem. * concurrent use of entresto + spironolactone?? -- on hold now * continue the bumex. * potassium slt high. bumex should help * creatinine stable. (2) Chronic kidney disease, stage IV (severe): Code(s): N18.4 - Chronic kidney disease, stage 4 (severe) Status: Chronic Assessment and Plan: * baseline creatinine ~ 1.6 - 2.1mg/dl since January 2020 * due to CHF, diabetes, age, and vascular disease * renal biopsy in July of this year with ATN and arteriosclerosis (3) Urinary tract infection: Code(s): N39.0 - Urinary tract infection, site not specified Status: Acute Assessment and Plan: * urine culture with Pseudomonas * on antibiotics * check bladder scan (4) Hyperkalemia: Code(s): E87.5 - Hyperkalemia Status: Acute Assessment and Plan: * due to spironolactone and entresto . Off of these. * Potassium 5.1 today. (5) Hypertension: Qualifiers: Hypertension type: unspecified Qualified Code(s): I10 - Essential (primary) hypertension Code(s): I10 - Essential (primary) hypertension Status: Chronic Assessment and Plan: * reasonable control at this time (6) A-fib: Code(s): I48.91 - Unspecified atrial fibrillation Status: Chronic Assessment and Plan: * rate control strategy * on coumadin Subjective Date/time seen: 10/31/20 11:23 Interval history: patient is alert. no cp or sob Exam Narrative: Exam Narrative: General: WD/WN male in NAD Heart: normal S1 and S2; no rub Lungs: clear Abdomen: soft, nontender, nondistended, positive bowel sounds Extremities: no cyanosis or clubbing; 2+ edema Skin: dressings over LEs in place Objective Data Vital Signs Vital Signs: Vital Signs - 24 hr 10/30/20 14:00 10/30/20 22:00 10/30/20 22:03 Temperature 36.7 C 36.8 C Pulse Rate 90 89 89 Respiratory Rate 20 18 Blood Pressure 140/72 140/62 Pulse Oximetry 98 97 10/31/20 06:00 10/31/20 08:25 Temperature 36.8 C Pulse Rate 100 95 Respiratory Rate 18 Blood Pressure 147/76 H Pulse Oximetry 97 Intake/Output Intake/Output: Intake & Output 10/28/20 10/29/20 10/30/20 10/31/20 23:59 23:59 23:59 23:59 Intake Total 2960 2540 3991 540 Output Total 1300 1150 800 Balance 1660 1390 3191 540 Meds/Results Medications: Active Medications Generic Name Dose Route Start Last Admin Trade Name Freq PRN Reason Stop Dose Admin Hydrocodone Bitart/Acetaminophen 1 tab 10/26/20 14:11 10/30/20 13:30 Hydrocodone/Acetaminophen (*Crx) 5-325 Mg Tablet PO 1 tab Q4H PRN Administration Pain Rated 6-10 Ascorbic Acid 500 mg 10/26/20 17:00 10/31/20 08:26 Ascorbic Acid 500 Mg Tablet PO 500 mg BID MARY Administration Atorvastatin Calcium 40 mg
--- NOTE | 2020-10-31 11:23 | PM.PNNEP ---
Progress Note: A&P Assessment and Plan (1) ANDRADE (acute kidney injury): Code(s): N17.9 - Acute kidney failure, unspecified Status: Acute Assessment and Plan: ANDRADE urine electrolytes non pre renal urine eosinophils negative ultrasound negative UA shows blood and leukocytes. Urine culture showed Pseudomonas. He is on imipenem. concurrent use of entresto + spironolactone?? -- on hold now continue the bumex. potassium slt high. bumex should help creatinine stable. (2) Chronic kidney disease, stage IV (severe): Code(s): N18.4 - Chronic kidney disease, stage 4 (severe) Status: Chronic Assessment and Plan: baseline creatinine ~ 1.6 - 2.1mg/dl since January 2020 due to CHF, diabetes, age, and vascular disease renal biopsy in July of this year with ATN and arteriosclerosis (3) Urinary tract infection: Code(s): N39.0 - Urinary tract infection, site not specified Status: Acute Assessment and Plan: urine culture with Pseudomonas on antibiotics check bladder scan (4) Hyperkalemia: Code(s): E87.5 - Hyperkalemia Status: Acute Assessment and Plan: due to spironolactone and entresto . Off of these. Potassium 5.1 today. (5) Hypertension: Qualifiers: Hypertension type: unspecified Qualified Code(s): I10 - Essential (primary) hypertension Code(s): I10 - Essential (primary) hypertension Status: Chronic Assessment and Plan: reasonable control at this time (6) A-fib: Code(s): I48.91 - Unspecified atrial fibrillation Status: Chronic Assessment and Plan: rate control strategy on coumadin Subjective Date/time seen: 10/31/20 11:23 Interval history: patient is alert. no cp or sob Exam Narrative: Exam Narrative: General: WD/WN male in NAD Heart: normal S1 and S2; no rub Lungs: clear Abdomen: soft, nontender, nondistended, positive bowel sounds Extremities: no cyanosis or clubbing; 2+ edema Skin: dressings over LEs in place Objective Data Vital Signs Vital Signs: Vital Signs - 24 hr 10/30/20 14:00 10/30/20 22:00 10/30/20 22:03 Temperature 36.7 C 36.8 C Pulse Rate 90 89 89 Respiratory Rate 20 18 Blood Pressure 140/72 140/62 Pulse Oximetry 98 97 10/31/20 06:00 10/31/20 08:25 Temperature 36.8 C Pulse Rate 100 95 Respiratory Rate 18 Blood Pressure 147/76 H Pulse Oximetry 97 Intake/Output Intake/Output: Intake & Output 10/28/20 10/29/20 10/30/20 10/31/20 23:59 23:59 23:59 23:59 Intake Total 2960 2540 3991 540 Output Total 1300 1150 800 Balance 1660 1390 3191 540 Meds/Results Medications: Active Medications Generic Name Dose Route Start Last Admin Trade Name Freq PRN Reason Stop Dose Admin Hydrocodone Bitart/Acetaminophen 1 tab 10/26/20 14:11 10/30/20 13:30 Hydrocodone/Acetaminophen (*Crx) 5-325 Mg Tablet PO 1 tab Q4H PRN Administration Pain Rated 6-10 Ascorbic Acid 500 mg 10/26/20 17:00 10/31/20 08:26 Ascorbic Acid 500 Mg Tablet PO 500 mg BID MARY Administration Atorvastatin Calcium 40 mg 10/26/20 21:00 10/30/20 22:02 Atorvastatin 40 Mg Tablet PO 40 mg HS MARY Administration Bisacodyl 10 mg 10/26/20 14:11 Bisacodyl 10 Mg Suppository RECTAL DAILY PRN Constipation Bumetanide 1 mg 10/30/20 17:00 10/31/20 08:25 Bumetanide Inj 1 Mg/4 Ml Vial IV PUSH 1 mg BID MARY Administration Dextrose 12.5 gm 10/26/20 13:49 Dextrose 50% 25 Gm/50 Ml Syringe IV PUSH PRN PRN Hypoglycemia Protocol Diphenhydramine HCl 25 mg 10/27/20 11:15 10/31/20 09:01 Diphenhydramine Hcl Cap 25 Mg Capsule PO 25 mg Q6H PRN Administration Itching Duloxetine HCl 30 mg 10/27/20 09:00 10/31/20 08:26 Duloxetine Hcl 30 Mg Capsule.Dr PO 30 mg DAILY MARY Administration Ferrous Sulfate 324 mg 10/27/20 08:00 10/31/20 08:25 Naun
[2020-10-31 12:20] LABS: Glucose Point of Care 156 mg/dl (65-105)
[2020-10-31] MEDS: HYDROcodone/acetaminophen (*CRX) 5-325 MG TABLET 1 TAB PO ×2 (12:30→21:06)
[2020-10-31 14:00] VITALS: BP 145/74; PULSE 75; RESP 20; TEMP 36.6; O2SAT 100
[2020-10-31 17:35] LABS: Glucose Point of Care 175 mg/dl (65-105)
--- NOTE | 2020-10-31 18:26 | PM.IMPN ---
Progress Note: A&P Assessment and Plan (1) Urinary tract infection in male: Code(s): N39.0 - Urinary tract infection, site not specified Status: Acute Assessment and Plan: Urine culture positive for Pseudomonas - continue imipenem (day 4) - Blood cultures negative to date (2) ANDRADE (acute kidney injury): Code(s): N17.9 - Acute kidney failure, unspecified Status: Acute Assessment and Plan: Patient's creatinine is improving from 4.2 at its peak to 3.7 today -Unclear etiology at this time, although likely due to new medications spironolactone and entresto, urinary tract infection and dehydration. -Per pt's facility, pt was started on entresto recently 09/29/20 and spironolactone 10/22. both Entresto and spironolactone has been put on hold -Renal US unremarkable. -He had a kidney bx 08/07/20 which showed acute tubular injury. -Started on Bumex -Continue oral bicarb -Appreciate nephrology consultation (3) Anemia in CKD (chronic kidney disease): Code(s): N18.9 - Chronic kidney disease, unspecified; D63.1 - Anemia in chronic kidney disease Status: Acute Assessment and Plan: Hgb 7.3 today, slightly lower than baseline but stable. - No s/sx of acute blood loss. 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 - Monitor CBC and transfuse prn - Continue PO iron (4) Acute hyperkalemia: Code(s): E87.5 - Hyperkalemia Status: Resolved Assessment and Plan: 5.1 today - Likely secondary to ANDRADE -Continue to hold spironolactone and Entresto -Continue Bumex - Repeat BMP tomorrow (5) Aortic valve replaced: Code(s): Z95.2 - Presence of prosthetic heart valve Status: Acute Assessment and Plan: Pt has a mechanical valve maintained on warfarin - INR is supratherapeutic at 3.6 - Will hold warfarin today - Recheck INR tomorrow (6) BPH (benign prostatic hyperplasia): Qualifiers: Lower urinary tract symptom presence: unspecified whether lower urinary tract symptoms present Qualified Code(s): N40.0 - Benign prostatic hyperplasia without lower urinary tract symptoms Code(s): N40.0 - Benign prostatic hyperplasia without lower urinary tract symptoms Status: Chronic Assessment and Plan: No evidence of urinary retention on bladder scan -Continue with Proscar and Flomax (7) Hypertension: Qualifiers: Hypertension type: unspecified Qualified Code(s): I10 - Essential (primary) hypertension Code(s): I10 - Essential (primary) hypertension Status: Chronic Assessment and Plan: Last bp 147/76 - Continue with metoprolol - hold entresto and spironolactone (8) Atrial fibrillation: Qualifiers: Atrial fibrillation type: unspecified Qualified Code(s): I48.91 - Unspecified atrial fibrillation Code(s): I48.91 - Unspecified atrial fibrillation Status: Chronic Assessment and Plan: Pt has a hx of this with no current issues. - Rate is controlled at this time - Continue metoprolol - Holding warfarin as above (9) Rash: Code(s): R21 - Rash and other nonspecific skin eruption Status: Acute Assessment and Plan: Pt states he has had this chronic rash for 3 years and it does not itch or hurt - will likely need to see dermatology outpt for skin biopsy - continue topical ammonium lactate Subjective Date/time seen: 10/31/20 18:26 Interval history: Date of service: 10/31/2020 Alton Rock is a 74-year-old male with history of acute on chronic kidney failure, aortic insufficiency with mechanical aortic valve on chronic anticoagulation, CHF, CAD, diabetes, hypertension, and several other comorbidities who is seen in follow-up for acute kidney injury and UTI. He is feeling well today and has no complaints. He is quite pleasant a
[2020-10-31 20:00] VITALS: PULSE 96; RESP 18; O2SAT 97
[2020-10-31] MEDS: ATORVASTATIN 40 MG TABLET PO (20:39)
[2020-10-31 20:40] VITALS: PULSE 79
[2020-10-31] MEDS: SENNOSIDES 8.6 MG TABLET 17.2 MG PO (20:42)
[2020-10-31] MEDS: MELATONIN 3 MG TABLET 6 MG PO (20:42)
[2020-10-31 22:00] VITALS: BP 135/70; PULSE 96; RESP 18; TEMP 37.2; O2SAT 97
[2020-10-31 22:28] LABS: Glucose Point of Care 209 mg/dl (65-105)
[2020-11-01] MEDS: traZODone HCL 25 MG TABLET PO ×2 (00:47→22:18)
[2020-11-01 06:00] VITALS: BP 121/61; PULSE 82; RESP 22; TEMP 37.2; O2SAT 96
[2020-11-01 06:54] LABS: Hematocrit 22.8 % (42.0-52.0); Mean Corpuscular HGB Conc 30.3 g/dl (32-36); Mean Corpuscular Hemoglobin 27.2 pg (26-34); Mean Corpuscular Volume 89.8 fl (80-100); Mean Platelet Volume 12.2 fl (7.4-10.4); Platelet Count Result 110 k/mm3 (150-375); Red Blood Count 2.54 M/mm3 (4.6-6.20); Red Cell Distribution Width 18.4 % (11.5-14.5); White Blood Count 8.6 K/mm3 (4.5-10.0)
[2020-11-01 07:06] LABS: Alanine Aminotransferase 12 U/L (4-50); Albumin Level 3.1 g/dL (3.5-5.1); Alkaline Phosphatase 73 U/L (38-126); Anion Gap 7 mmol/L (8-16); Aspartate Amino Transferase 24 U/L (17-59); Bilirubin,Total 0.6 mg/dL (0.2-1.3); Blood Urea Nitrogen 42 mg/dL (9-20); Calcium 8.6 mg/dL (8.4-10.2); Carbon Dioxide 20 mmol/L (22-30); Chloride 112 mmol/L (98-107); Estimated CRCL calculation 18 ml/min; Estimated Glomerular Filt Rate 16; Glucose 114 mg/dL (65-110); Phosphorus 6.4 mg/dL (2.5-4.5); Potassium 4.7 mmol/L (3.4-5.0); Sodium 139 mmol/L (137-145)
[2020-11-01 07:07] LABS: INR 4.4; Prothrombin Time 40.4 Seconds (11.1-14.7)
[2020-11-01 07:10] LABS: Hemoglobin 6.9 g/dL (14.0-18.0)
[2020-11-01 08:01] LABS: Glucose Point of Care 112 mg/dl (65-105)
[2020-11-01] MEDS: BUMETANIDE INJ 1 MG/4 ML VIAL IV PUSH ×3 (09:15→17:52)
[2020-11-01] MEDS: SODIUM BICARBONATE TAB 650 MG TABLET PO ×2 (09:15→16:57)
[2020-11-01] MEDS: HYDROcodone/acetaminophen (*CRX) 5-325 MG TABLET 1 TAB PO ×2 (09:20→16:14)
[2020-11-01 09:21] VITALS: PULSE 88
[2020-11-01] MEDS: ASCORBIC ACID 500 MG TABLET PO ×2 (09:21→16:56)
[2020-11-01] MEDS: TAMSULOSIN HCL 0.4 MG CAPSULE PO (09:21)
[2020-11-01] MEDS: MAGNESIUM OXIDE 200 MG TABLET PO ×2 (09:21→22:15)
[2020-11-01] MEDS: METOPROLOL TARTRATE 12.5 MG TABLET PO ×2 (09:21→22:15)
[2020-11-01] MEDS: PANTOPRAZOLE 40 MG TABLET PO (09:22)
[2020-11-01] MEDS: FERROUS SULFATE 324 MG TABLET PO (09:22)
[2020-11-01] MEDS: FINASTERIDE 5 MG TABLET PO (09:22)
[2020-11-01] MEDS: DULoxetine HCL 30 MG CAPSULE.DR PO (09:22)
[2020-11-01] MEDS: diphenhydrAMINE HCl CAP 25 MG CAPSULE PO ×2 (09:28→17:15)
[2020-11-01] MEDS: LACTIC ACID 12% LOTION 225 BTL 1 APPLIC TOPICAL (09:30)
--- NOTE | 2020-11-01 09:54 | PCNFU ---
Nutrition Follow-Up Complete: Increased protein needs related to multiple wounds as evidenced by a nutrition consult and wound assessment. Goal: Have patient meet estimated nutritional needs. Progressing towards goal. We will continue current goal. Pt current nutrition is Renal Dialysis diet with Glucerna shake once per day. Last recorded weight is 95.6 kg, no new weight to report. Recommend new weight. Bowel Motility:+BM reported 10/31 Labs Reviewed:Hgb 6.9,Hct 22.8,Alb 3.1,GFR 16, BUN 42, Cr 3.7,Glu 114,PO4 6.4 Meds Noted:Bumex,Coumadin, Protonix, Lopressor, Ferrous Sulfate, Senokot, Melanotonin,Cymbalta,Proscar,Vit C, Lipitor. Additional Notes: Patient seen today for nutrition follow up. Patient states to tolerating Renal Dialysis diet, 100% of meals. He is drinking Glucerna shakes providing an additional 220 kcals and 10 gms protein. Receiving blood today. Skin: left and right venous status ulcers noted. Agree with diet orders. Monitoring: Will follow up in 5 days.
[2020-11-01 11:39] LABS: Glucose Point of Care 202 mg/dl (65-105)
[2020-11-01] MEDS: INSULIN ASPART (*BKC) 100 UNITS/ML SUB-Q (12:28)
[2020-11-01] MEDS: PREGABALIN (*CRX) 75 MG CAPSULE PO ×2 (12:33→16:59)
[2020-11-01 13:44] VITALS: BP 127/66; PULSE 59; RESP 18; TEMP 36.4; O2SAT 100
[2020-11-01 16:31] LABS: Glucose Point of Care 173 mg/dl (65-105)
--- NOTE | 2020-11-01 17:04 | PM.IMPN ---
Progress Note: A&P Assessment and Plan (1) Urinary tract infection in male: Code(s): N39.0 - Urinary tract infection, site not specified Status: Acute Assessment and Plan: Urine culture positive for Pseudomonas - continue imipenem (day 5) - Blood cultures negative (2) ANDRADE (acute kidney injury): Code(s): N17.9 - Acute kidney failure, unspecified Status: Acute Assessment and Plan: Patient's creatinine is slowly improving from 4.2 at its peak to 3.7 today -Unclear etiology at this time, although likely due to new medications spironolactone and entresto, urinary tract infection and dehydration. -Per pt's facility, pt was started on entresto recently 09/29/20 and spironolactone 10/22. both Entresto and spironolactone has been put on hold -Renal US unremarkable. -He had a kidney biopsy 08/07/20 which showed acute tubular injury. -Started on Bumex 1 mg BID -Continue oral bicarb -Appreciate nephrology consultation (3) Anemia in CKD (chronic kidney disease): Code(s): N18.9 - Chronic kidney disease, unspecified; D63.1 - Anemia in chronic kidney disease Status: Acute Assessment and Plan: Hgb declined to 6.9 today - Transfuse 2 units pRBC - No s/sx of acute blood loss. Will check IFOB. History of occult blood in stool at last hospitalization July 2020. 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 - Bone marrow biopsy at last hospitalization consistent with multiple myeloma, likely contributing to anemia - Monitor CBC and transfuse prn - Continue PO iron supplementation - Continue pantoprazole (4) Acute hyperkalemia: Code(s): E87.5 - Hyperkalemia Status: Resolved Assessment and Plan: Improved. 4.7 today - Likely secondary to ANDRADE -Continue to hold spironolactone and Entresto -Continue Bumex - Repeat BMP tomorrow (5) Aortic valve replaced: Code(s): Z95.2 - Presence of prosthetic heart valve Status: Acute Assessment and Plan: Pt has a mechanical valve maintained on warfarin - INR is supratherapeutic at 4.4. - Will hold warfarin today - Recheck INR tomorrow (6) BPH (benign prostatic hyperplasia): Qualifiers: Lower urinary tract symptom presence: unspecified whether lower urinary tract symptoms present Qualified Code(s): N40.0 - Benign prostatic hyperplasia without lower urinary tract symptoms Code(s): N40.0 - Benign prostatic hyperplasia without lower urinary tract symptoms Status: Chronic Assessment and Plan: No evidence of urinary retention on bladder scan -Continue with Proscar and Flomax (7) Hypertension: Qualifiers: Hypertension type: unspecified Qualified Code(s): I10 - Essential (primary) hypertension Code(s): I10 - Essential (primary) hypertension Status: Chronic Assessment and Plan: Last BP 121/61 - Continue with metoprolol - hold entresto and spironolactone (8) Atrial fibrillation: Qualifiers: Atrial fibrillation type: unspecified Qualified Code(s): I48.91 - Unspecified atrial fibrillation Code(s): I48.91 - Unspecified atrial fibrillation Status: Chronic Assessment and Plan: Pt has a hx of this with no current issues. - Rate is controlled at this time - Continue metoprolol - Holding warfarin as above (9) Rash: Code(s): R21 - Rash and other nonspecific skin eruption Status: Acute Assessment and Plan: Pt states he has had this chronic rash for 3 years and it does not itch or hurt - will likely need to see dermatology outpt for skin biopsy - continue topical ammonium lactate and aloe Maynard ointment - appreciate wound care recommendations Subjective Date/time seen: 11/01/20 17:04 Interval history: Date of service: 10/31/2020 Alton Goodrich Pranav is a 74-year-old male wit
--- NOTE | 2020-11-01 18:23 | P.PNNP_ITS ---
Progress Note: A&P Assessment and Plan (1) ANDRADE (acute kidney injury): Code(s): N17.9 - Acute kidney failure, unspecified Status: Acute Assessment and Plan: * ANDRADE * urine electrolytes non pre renal * urine eosinophils negative * ultrasound negative * UA shows blood and leukocytes. Urine culture showed Pseudomonas. * He is on imipenem. * his creatinine improved a little bit at first but seems to have plateaued. * He has a bladder infection which slows the improvement of the creatinine. * Because of his edema we are giving diuretics which has slowed the improvement of the creatinine as well. * At this point will continue diuretics because edema is conferring significant morbidity. * I discussed with him that his creatinine is probably diluted by all this fluid and so his GFR underestimates how bad his kidneys really are. It is possible that he may end up needing dialysis to get rid of all this fluid if his BUN and creatinine climb enough to warrant this (2) Chronic kidney disease, stage IV (severe): Code(s): N18.4 - Chronic kidney disease, stage 4 (severe) Status: Chronic Assessment and Plan: * baseline creatinine ~ 1.6 - 2.1mg/dl since January 2020 * due to CHF, diabetes, age, and vascular disease * renal biopsy in July of this year with ATN and arteriosclerosis (3) Urinary tract infection: Code(s): N39.0 - Urinary tract infection, site not specified Status: Acute Assessment and Plan: * urine culture with Pseudomonas * on antibiotics * check bladder scan (4) Hyperkalemia: Code(s): E87.5 - Hyperkalemia Status: Acute Assessment and Plan: * better (5) Hypertension: Qualifiers: Hypertension type: unspecified Qualified Code(s): I10 - Essential (primary) hypertension Code(s): I10 - Essential (primary) hypertension Status: Chronic Assessment and Plan: * reasonable control at this time (6) A-fib: Code(s): I48.91 - Unspecified atrial fibrillation Status: Chronic Assessment and Plan: * rate control strategy * on coumadin Subjective Date/time seen: 11/01/20 18:23 Interval history: patient is alert. still swollen in his legs and scrotum. Somewhat uncomfortable with this, getting pain meds. no cp or sob Exam Narrative: Exam Narrative: General: WD/WN male in NAD Heart: irregular rate and rhythm. no rub Lungs: clear bilaterally Abdomen: soft, nontender, nondistended, positive bowel sounds Extremities: no cyanosis or clubbing; 2+ edema Skin: chronic venous stasis dermatitis below his knees Objective Data Vital Signs Vital Signs: Vital Signs - 24 hr 10/31/20 20:00 10/31/20 20:40 10/31/20 22:00 Temperature 37.2 C Pulse Rate 96 79 96 Respiratory Rate 18 18 Blood Pressure 135/70 Pulse Oximetry 97 97 11/01/20 06:00 11/01/20 09:21 11/01/20 13:44 Temperature 37.2 C 36.4 C L Pulse Rate 82 88 59 L Respiratory Rate 22 H 18 Blood Pressure 121/61 127/66 Pulse Oximetry 96 100 Intake/Output Intake/Output: Intake & Output 10/29/20 10/30/20 10/31/20 11/01/20 23:59 23:59 23:59 23:59 Intake Total 2540 3991 1120 2040 Output Total 4671 002 9057 Balance 1390 319
--- NOTE | 2020-11-01 18:23 | PM.PNNEP ---
Progress Note: A&P Assessment and Plan (1) ANDRADE (acute kidney injury): Code(s): N17.9 - Acute kidney failure, unspecified Status: Acute Assessment and Plan: ANDRADE urine electrolytes non pre renal urine eosinophils negative ultrasound negative UA shows blood and leukocytes. Urine culture showed Pseudomonas. He is on imipenem. his creatinine improved a little bit at first but seems to have plateaued. He has a bladder infection which slows the improvement of the creatinine. Because of his edema we are giving diuretics which has slowed the improvement of the creatinine as well. At this point will continue diuretics because edema is conferring significant morbidity. I discussed with him that his creatinine is probably diluted by all this fluid and so his GFR underestimates how bad his kidneys really are. It is possible that he may end up needing dialysis to get rid of all this fluid if his BUN and creatinine climb enough to warrant this (2) Chronic kidney disease, stage IV (severe): Code(s): N18.4 - Chronic kidney disease, stage 4 (severe) Status: Chronic Assessment and Plan: baseline creatinine ~ 1.6 - 2.1mg/dl since January 2020 due to CHF, diabetes, age, and vascular disease renal biopsy in July of this year with ATN and arteriosclerosis (3) Urinary tract infection: Code(s): N39.0 - Urinary tract infection, site not specified Status: Acute Assessment and Plan: urine culture with Pseudomonas on antibiotics check bladder scan (4) Hyperkalemia: Code(s): E87.5 - Hyperkalemia Status: Acute Assessment and Plan: better (5) Hypertension: Qualifiers: Hypertension type: unspecified Qualified Code(s): I10 - Essential (primary) hypertension Code(s): I10 - Essential (primary) hypertension Status: Chronic Assessment and Plan: reasonable control at this time (6) A-fib: Code(s): I48.91 - Unspecified atrial fibrillation Status: Chronic Assessment and Plan: rate control strategy on coumadin Subjective Date/time seen: 11/01/20 18:23 Interval history: patient is alert. still swollen in his legs and scrotum. Somewhat uncomfortable with this, getting pain meds. no cp or sob Exam Narrative: Exam Narrative: General: WD/WN male in NAD Heart: irregular rate and rhythm. no rub Lungs: clear bilaterally Abdomen: soft, nontender, nondistended, positive bowel sounds Extremities: no cyanosis or clubbing; 2+ edema Skin: chronic venous stasis dermatitis below his knees Objective Data Vital Signs Vital Signs: Vital Signs - 24 hr 10/31/20 20:00 10/31/20 20:40 10/31/20 22:00 Temperature 37.2 C Pulse Rate 96 79 96 Respiratory Rate 18 18 Blood Pressure 135/70 Pulse Oximetry 97 97 11/01/20 06:00 11/01/20 09:21 11/01/20 13:44 Temperature 37.2 C 36.4 C L Pulse Rate 82 88 59 L Respiratory Rate 22 H 18 Blood Pressure 121/61 127/66 Pulse Oximetry 96 100 Intake/Output Intake/Output: Intake & Output 10/29/20 10/30/20 10/31/20 11/01/20 23:59 23:59 23:59 23:59 Intake Total 2540 3991 1120 2040 Output Total 4595 252 1991 Balance 1390 3191 1120 410 Meds/Results Medications: Active Medications Generic Name Dose Route Start Last Admin Trade Name Freq PRN Reason Stop Dose Admin Hydrocodone Bitart/Acetaminophen 1 tab 10/26/20 14:11 11/01/20 16:14 Hydrocodone/Acetaminophen (*Crx) 5-325 Mg Tablet PO 1 tab Q4H PRN Administration Pain Rated 6-10 Ascorbic Acid 500 mg 10/26/20 17:00 11/01/20 16:56 Ascorbic Acid 500 Mg Tablet PO 500 mg BID MARY Administration Atorvastatin Calcium 40 mg 10/26/20 21:00 10/31/20 20:39 Atorvastatin 40 Mg Tablet PO 40 mg HS MARY Administration Bisacodyl 10 mg 10/26/20 14:11 Bisacodyl 10 Mg Suppository RECTAL DAILY PRN Constipation Bume
[2020-11-01 20:00] VITALS: PULSE 86; RESP 16; O2SAT 97
[2020-11-01 22:00] VITALS: BP 119/55; PULSE 95; RESP 16; TEMP 36.4; O2SAT 97
[2020-11-01] MEDS: metOLazone 5 MG TABLET PO (22:13)
[2020-11-01] MEDS: ATORVASTATIN 40 MG TABLET PO (22:14)
[2020-11-01 22:15] VITALS: PULSE 86
[2020-11-01] MEDS: SENNOSIDES 8.6 MG TABLET 17.2 MG PO (22:22)
[2020-11-01] MEDS: MELATONIN 3 MG TABLET 6 MG PO (22:22)
[2020-11-02] VITALS (16 sets, daily range): BP systolic 101–147; BP diastolic 51–70; PULSE 72–96; RESP 14–20; TEMP 36.3–36.6; O2SAT 96–100
[2020-11-02 00:45] LABS: Glucose Point of Care 119 mg/dl (65-105)
[2020-11-02 07:49] LABS: Glucose Point of Care 108 mg/dl (65-105)
[2020-11-02] MEDS: HYDROcodone/acetaminophen (*CRX) 5-325 MG TABLET 1 TAB PO ×2 (08:14→18:05)
[2020-11-02] MEDS: PREGABALIN (*CRX) 75 MG CAPSULE PO ×2 (08:15→18:00)
[2020-11-02] MEDS: diphenhydrAMINE HCl CAP 25 MG CAPSULE PO ×2 (08:15→18:05)
[2020-11-02] MEDS: METOPROLOL TARTRATE 12.5 MG TABLET PO ×2 (08:16→23:00)
[2020-11-02] MEDS: PANTOPRAZOLE 40 MG TABLET PO (08:17)
[2020-11-02] MEDS: MAGNESIUM OXIDE 200 MG TABLET PO ×2 (08:17→22:52)
[2020-11-02] MEDS: SODIUM BICARBONATE TAB 650 MG TABLET PO ×2 (08:17→18:02)
[2020-11-02] MEDS: metOLazone 5 MG TABLET PO (08:17)
[2020-11-02] MEDS: FERROUS SULFATE 324 MG TABLET PO (08:17)
[2020-11-02] MEDS: ASCORBIC ACID 500 MG TABLET PO ×2 (08:17→18:04)
[2020-11-02] MEDS: BUMETANIDE INJ 1 MG/4 ML VIAL 2 MG IV PUSH ×2 (08:17→18:03)
[2020-11-02] MEDS: FINASTERIDE 5 MG TABLET PO (08:18)
[2020-11-02] MEDS: TAMSULOSIN HCL 0.4 MG CAPSULE PO (08:18)
[2020-11-02] MEDS: DULoxetine HCL 30 MG CAPSULE.DR PO (08:18)
[2020-11-02 08:48] LABS: Basophils Percent Auto 0.3 % (0.2-1.2); Eosinophils Absolute Auto 3.1 K/mm3 (0-0.3); Eosinophils Percent Auto 31.7 % (0-4.4); Hematocrit 27.8 % (42.0-52.0); Hemoglobin 8.5 g/dL (14.0-18.0); Immature Granulocyte Absolute 0.05 K/mm3 (0.00-0.031); Immature Granulocyte Percent A 0.5 % (0-0.5); Immature Platelet Fraction Pct 7.1 % (0.9-11.2); Lymphocytes Absolute Auto 0.66 K/mm3 (0.9-3.2); Lymphocytes Percent Auto 6.8 % (18.3-44.2); Mean Corpuscular HGB Conc 30.6 g/dl (32-36); Mean Corpuscular Hemoglobin 27.5 pg (26-34); Mean Platelet Volume 11.9 fl (7.4-10.4); Monocytes Absolute Auto 0.9 K/mm3 (0.1-0.6); Monocytes Percent Auto 8.7 % (2.6-8.5); Neutrophils Absolute Auto 5.1 K/mm3 (1.3-6.7); Platelet Count Result 129 k/mm3 (150-375); Red Blood Count 3.09 M/mm3 (4.6-6.20); Red Cell Distribution Width 17.7 % (11.5-14.5); White Blood Count 9.8 K/mm3 (4.5-10.0)
[2020-11-02 08:56] LABS: INR 4.1; Prothrombin Time 38.6 Seconds (11.1-14.7)
[2020-11-02 08:58] LABS: Albumin Level 3.4 g/dL (3.5-5.1); Anion Gap 10 mmol/L (8-16); Blood Urea Nitrogen 42 mg/dL (9-20); Calcium 8.9 mg/dL (8.4-10.2); Carbon Dioxide 20 mmol/L (22-30); Chloride 108 mmol/L (98-107); Estimated CRCL calculation 17 ml/min; Estimated Glomerular Filt Rate 15; Glucose 156 mg/dL (65-110); Phosphorus 6.9 mg/dL (2.5-4.5); Potassium 4.7 mmol/L (3.4-5.0); Sodium 138 mmol/L (137-145)
--- NOTE | 2020-11-02 11:32 | PM.PNNEP ---
Progress Note: A&P Assessment and Plan (1) ANDRADE (acute kidney injury): Code(s): N17.9 - Acute kidney failure, unspecified Status: Acute Assessment and Plan: ANDRADE urine electrolytes non pre renal urine eosinophils negative ultrasound negative UA shows blood and leukocytes. Urine culture showed Pseudomonas. He is on imipenem. his creatinine improved a little bit at first but seems to have plateaued. Continue diuretics due to the severity of the swelling. (2) Chronic kidney disease, stage IV (severe): Code(s): N18.4 - Chronic kidney disease, stage 4 (severe) Status: Chronic Assessment and Plan: baseline creatinine ~ 1.6 - 2.1mg/dl since January 2020 due to CHF, diabetes, age, and vascular disease renal biopsy in July of this year with ATN and arteriosclerosis (3) Urinary tract infection: Code(s): N39.0 - Urinary tract infection, site not specified Status: Acute Assessment and Plan: urine culture with Pseudomonas on antibiotics (4) Hyperkalemia: Code(s): E87.5 - Hyperkalemia Status: Acute Assessment and Plan: resolved (5) Hypertension: Qualifiers: Hypertension type: unspecified Qualified Code(s): I10 - Essential (primary) hypertension Code(s): I10 - Essential (primary) hypertension Status: Chronic Assessment and Plan: Blood pressure doing pretty well (6) A-fib: Code(s): I48.91 - Unspecified atrial fibrillation Status: Chronic Assessment and Plan: rate control strategy on coumadin Subjective Date/time seen: 11/02/20 11:32 Interval history: patient is alert. still swollen in his legs and scrotum but feels better. Exam Narrative: Exam Narrative: General: WD/WN male in NAD Heart: irregular rate and rhythm. no rub Lungs: clear bilaterally Abdomen: soft, nontender, nondistended, positive bowel sounds Extremities: no cyanosis or clubbing; 2+ edema Skin: chronic venous stasis dermatitis below his knees Objective Data Vital Signs Vital Signs: Vital Signs - 24 hr 11/01/20 13:44 11/01/20 20:00 11/01/20 22:00 Temperature 36.4 C L 36.4 C Pulse Rate 59 L 86 95 Respiratory Rate 18 16 16 Blood Pressure 127/66 119/55 L Pulse Oximetry 100 97 97 11/01/20 22:15 11/02/20 02:57 11/02/20 03:13 Temperature 36.4 C L 36.5 C Pulse Rate 86 77 79 Respiratory Rate 14 20 Blood Pressure 126/55 L 113/64 Pulse Oximetry 96 99 11/02/20 04:13 11/02/20 05:13 11/02/20 06:00 Temperature 36.6 C 36.4 C L 36.3 C L Pulse Rate 80 89 96 Respiratory Rate 20 16 16 Blood Pressure 115/70 125/70 147/59 H Pulse Oximetry 100 97 97 11/02/20 06:13 11/02/20 07:13 11/02/20 08:16 Temperature 36.3 C L 36.5 C Pulse Rate 96 86 92 Respiratory Rate 16 18 Blood Pressure 147/59 H 144/67 H Pulse Oximetry 97 99 11/02/20 10:57 11/02/20 11:10 Temperature 36.4 C L 36.4 C L Pulse Rate 80 74 Respiratory Rate 16 14 Blood Pressure 104/53 L 101/51 L Pulse Oximetry 97 97 Intake/Output Intake/Output: Intake & Output 10/30/20 10/31/20 11/01/20 11/02/20 23:59 23:59 23:59 23:59 Intake Total 3991 1120 2380 630 Output Total 800 1630 600 Balance 3191 1120 750 30 Meds/Results Medications: Active Medications Generic Name Dose Route Start Last Admin Trade Name Freq PRN Reason Stop Dose Admin Hydrocodone Bitart/Acetaminophen 1 tab 11/02/20 08:42 Hydrocodone/Acetaminophen (*Crx) 5-325 Mg Tablet PO Q4H PRN Pain Rated 4-6 Ascorbic Acid 500 mg 10/26/20 17:00 11/02/20 08:17 Ascorbic Acid 500 Mg Tablet PO 500 mg BID MARY Administration Atorvastatin Calcium 40 mg 10/26/20 21:00 11/01/20 22:14 Atorvastatin 40 Mg Tablet PO 40 mg HS MARY Administration Bisacodyl 10 mg 10/26/20 14:11 Bisacodyl 10 Mg Suppository RECTAL DAILY PRN Constipation Bumetanide 2 mg 11/02/20 09:00 11/02/20 08:
[2020-11-02] MEDS: LACTIC ACID 12% LOTION 225 BTL 1 APPLIC TOPICAL (11:49)
[2020-11-02] MEDS: SODIUM CHLORIDE 0.9% IV 250 ML 30 ML IV CONT (11:50)
[2020-11-02] MEDS: TUBING, BLOOD PLUM PUMP TUBING 1 EACH XX ×2 (11:50→11:51)
[2020-11-02 12:35] LABS: Glucose Point of Care 143 mg/dl (65-105)
--- NOTE | 2020-11-02 14:24 | PM.IMPN ---
Progress Note: A&P Assessment and Plan (1) Urinary tract infection in male: Code(s): N39.0 - Urinary tract infection, site not specified Status: Acute Assessment and Plan: Urine culture positive for Pseudomonas - continue imipenem (day 6) - Blood cultures negative (2) ANDRADE (acute kidney injury): Code(s): N17.9 - Acute kidney failure, unspecified Status: Acute Assessment and Plan: Patient's creatinine is slowly improving from 4.2 at its peak to 3.9 today -Unclear etiology at this time, although likely due to new medications spironolactone and entresto, urinary tract infection and dehydration. -Per pt's facility, pt was started on entresto recently 09/29/20 and spironolactone 10/22. both Entresto and spironolactone has been put on hold -Renal US unremarkable. -He had a kidney biopsy 08/07/20 which showed acute tubular injury. -Bumex 2 mg BID -Continue oral bicarb -Appreciate nephrology consultation (3) Anemia in CKD (chronic kidney disease): Code(s): N18.9 - Chronic kidney disease, unspecified; D63.1 - Anemia in chronic kidney disease Status: Acute Assessment and Plan: Hgb improved today to 8.5 - Transfusion of 2 units pRBC ordered. 2nd unit currently being transfused - Recheck H&H 1 hour following transfusion - No s/sx of acute blood loss. IFOB ordered. History of occult blood in stool at last hospitalization July 2020. - Iron panel suggestive of ACD likely from CKD and other comorbid conditions - Bone marrow biopsy July 2020 consistent with multiple myeloma however not requiring tx at this time. Discussed with oncologist Dr. Nowak. - Monitor CBC and transfuse prn - Continue PO iron supplementation - 20,000 units Epogen ordered. He is scheduled for Epogen injections q2 weeks and is past due. (4) Acute hyperkalemia: Code(s): E87.5 - Hyperkalemia Status: Resolved Assessment and Plan: Improved. 4.7 today - Likely secondary to ANDRADE -Continue to hold spironolactone and Entresto -Continue Bumex - Repeat BMP tomorrow (5) Aortic valve replaced: Code(s): Z95.2 - Presence of prosthetic heart valve Status: Acute Assessment and Plan: Pt has a mechanical valve maintained on warfarin - INR is supratherapeutic at 4.1. - Will hold warfarin - Will likely need dose reduction of warfarin as he has frequently been supratherapeutic - Recheck INR tomorrow (6) BPH (benign prostatic hyperplasia): Qualifiers: Lower urinary tract symptom presence: unspecified whether lower urinary tract symptoms present Qualified Code(s): N40.0 - Benign prostatic hyperplasia without lower urinary tract symptoms Code(s): N40.0 - Benign prostatic hyperplasia without lower urinary tract symptoms Status: Chronic Assessment and Plan: No evidence of urinary retention on bladder scan -Continue with Proscar and Flomax (7) Hypertension: Qualifiers: Hypertension type: unspecified Qualified Code(s): I10 - Essential (primary) hypertension Code(s): I10 - Essential (primary) hypertension Status: Chronic Assessment and Plan: Last BP 144/67 - Continue with metoprolol - hold entresto and spironolactone (8) Atrial fibrillation: Qualifiers: Atrial fibrillation type: unspecified Qualified Code(s): I48.91 - Unspecified atrial fibrillation Code(s): I48.91 - Unspecified atrial fibrillation Status: Chronic Assessment and Plan: Pt has a hx of this with no current issues. - Rate is controlled at this time - Continue metoprolol - Holding warfarin as above (9) Rash: Code(s): R21 - Rash and other nonspecific skin eruption Status: Acute Assessment and Plan: Pt states he has had this chronic rash for 3 years - will likely need to see dermatology outpt for skin biopsy - continue topical ammonium lactate and aloe Bayard ointment - appreciate
[2020-11-02 15:05] LABS: Hematocrit 28.1 % (42.0-52.0); Hemoglobin 8.9 g/dL (14.0-18.0)
[2020-11-02] MEDS: EPOETIN ALFA-EPBX 20,000 UNITS/ML VIAL 20000 UNITS SUB-Q (15:21)
--- NOTE | 2020-11-02 15:26 | PC.NURSE ---
All patient care, medications, and assessments provided by Maisha Case RNLP with Manpreet Augustin RN.
[2020-11-02 15:43] LABS: Chloride Rand Ur 61 mmol/L (32-290); Chloride/Creatinine Rand Ur 97 (23-275); Creatinine Random Urine 63 mg/dL (20-320)
[2020-11-02 16:55] LABS: Glucose Point of Care 88 mg/dl (65-105)
[2020-11-02 18:11] LABS: IFOB Positive Control Positive; Immunochemical Fecal Occult Bl Positive (N)
[2020-11-02 22:24] LABS: Glucose Point of Care 169 mg/dl (65-105)
[2020-11-02] MEDS: traZODone HCL 25 MG TABLET PO (22:52)
[2020-11-02] MEDS: ATORVASTATIN 40 MG TABLET PO (22:53)
[2020-11-02] MEDS: MELATONIN 3 MG TABLET 6 MG PO (22:54)
[2020-11-02] MEDS: SENNOSIDES 8.6 MG TABLET 17.2 MG PO (22:58)
[2020-11-03 06:00] VITALS: BP 128/74; PULSE 73; RESP 18; TEMP 36.2; O2SAT 98
[2020-11-03 06:45] LABS: Hematocrit 26.2 % (42.0-52.0); Hemoglobin 8.2 g/dL (14.0-18.0); Immature Platelet Fraction Pct 6.6 % (0.9-11.2); Mean Corpuscular HGB Conc 31.3 g/dl (32-36); Mean Corpuscular Hemoglobin 27.4 pg (26-34); Mean Corpuscular Volume 87.6 fl (80-100); Mean Platelet Volume 12.4 fl (7.4-10.4); Platelet Count Result 123 k/mm3 (150-375); Red Blood Count 2.99 M/mm3 (4.6-6.20); Red Cell Distribution Width 18.5 % (11.5-14.5); White Blood Count 7.9 K/mm3 (4.5-10.0)
[2020-11-03 06:55] LABS: INR 4.2; Prothrombin Time 38.9 Seconds (11.1-14.7)
[2020-11-03 06:59] LABS: Anion Gap 10 mmol/L (8-16); Blood Urea Nitrogen 45 mg/dL (9-20); Calcium 8.6 mg/dL (8.4-10.2); Carbon Dioxide 21 mmol/L (22-30); Chloride 106 mmol/L (98-107); Estimated CRCL calculation 17 ml/min; Estimated Glomerular Filt Rate 15; Glucose 111 mg/dL (65-110); Phosphorus 6.8 mg/dL (2.5-4.5); Potassium 4.4 mmol/L (3.4-5.0); Sodium 137 mmol/L (137-145)
[2020-11-03 08:28] LABS: Glucose Point of Care 106 mg/dl (65-105)
[2020-11-03 09:36] VITALS: PULSE 74
[2020-11-03] MEDS: PANTOPRAZOLE 40 MG TABLET PO (09:36)
[2020-11-03] MEDS: SODIUM BICARBONATE TAB 650 MG TABLET PO ×2 (09:36→17:05)
[2020-11-03] MEDS: ASCORBIC ACID 500 MG TABLET PO ×2 (09:36→17:05)
[2020-11-03] MEDS: MAGNESIUM OXIDE 200 MG TABLET PO ×2 (09:36→21:38)
[2020-11-03] MEDS: TAMSULOSIN HCL 0.4 MG CAPSULE PO (09:36)
[2020-11-03] MEDS: METOPROLOL TARTRATE 12.5 MG TABLET PO ×2 (09:36→21:39)
[2020-11-03] MEDS: BUMETANIDE INJ 1 MG/4 ML VIAL 2 MG IV PUSH ×2 (09:37→17:04)
[2020-11-03] MEDS: FERROUS SULFATE 324 MG TABLET PO (09:37)
[2020-11-03] MEDS: FINASTERIDE 5 MG TABLET PO (09:40)
[2020-11-03] MEDS: DULoxetine HCL 30 MG CAPSULE.DR PO (09:40)
[2020-11-03] MEDS: metOLazone 5 MG TABLET PO (09:40)
[2020-11-03] MEDS: LACTIC ACID 12% LOTION 225 BTL 1 APPLIC TOPICAL (09:43)
[2020-11-03] MEDS: PREGABALIN (*CRX) 75 MG CAPSULE PO ×2 (09:45→17:04)
--- NOTE | 2020-11-03 12:30 | P.PNNP_ITS ---
Progress Note: A&P Assessment and Plan (1) ANDRADE (acute kidney injury): Code(s): N17.9 - Acute kidney failure, unspecified Status: Acute Assessment and Plan: * ANDRADE * urine electrolytes non pre renal * urine eosinophils negative * ultrasound negative * UA shows blood and leukocytes. Urine culture showed Pseudomonas. * He is on imipenem. * his creatinine is stable at around 3. * it was imnproving but stalled. he has eosinophilia. I doubt whether he has AIN. with his comorbidities, steroids would be risky. * he had a biopsy last admission showing just chronic issues. 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 (2) Chronic kidney disease, stage IV (severe): Code(s): N18.4 - Chronic kidney disease, stage 4 (severe) Status: Chronic Assessment and Plan: * baseline creatinine ~ 1.6 - 2.1mg/dl since January 2020 * he may have a new baseline. * due to CHF, diabetes, age, and vascular disease * renal biopsy in July of this year with ATN and arteriosclerosis (3) Urinary tract infection: Code(s): N39.0 - Urinary tract infection, site not specified Status: Acute Assessment and Plan: * urine culture with Pseudomonas * on antibiotics (4) Hyperkalemia: Code(s): E87.5 - Hyperkalemia Status: Acute Assessment and Plan: * resolved (5) Hypertension: Qualifiers: Hypertension type: unspecified Qualified Code(s): I10 - Essential (primary) hypertension Code(s): I10 - Essential (primary) hypertension Status: Chronic Assessment and Plan: * Blood pressure doing pretty well (6) A-fib: Code(s): I48.91 - Unspecified atrial fibrillation Status: Chronic Assessment and Plan: * rate control strategy * on coumadin (7) Edema: Code(s): R60.9 - Edema, unspecified Status: Acute Assessment and Plan: continue diuretics. (8) Rash: Code(s): R21 - Rash and other nonspecific skin eruption Status: Acute Assessment and Plan: apparently chronic. symptomatic tx Subjective Date/time seen: 11/03/20 12:30 Interval history: patient is alert. swelling is about the same. some itching on arms. Exam Narrative: Exam Narrative: General: WD/WN male in NAD Heart: irregular rate and rhythm. no rub Lungs: clear Abdomen: BS+ nontender Extremities: no cyanosis or clubbing; 2+ edema Skin: chronic venous stasis dermatitis below his knees Objective Data Vital Signs Vital Signs: Vital Signs - 24 hr 11/02/20 13:10 11/02/20 13:50 11/02/20 20:30 Temperature 36.3 C L 36.4 C L Pulse Rate 72 76 80 Respiratory Rate 16 14 18 Blood Pressure 101/51 L 104/52 L Pulse Oximetry 99 97 97 11/02/20 22:00 11/02/20 23:00 11/03/20 06:00 Temperature 36.5 C 36.2 C L Pulse Rate 84 80 73 Respiratory Rate 18 18 Blood Pressure 118/55 L 128/74 Pulse Oximetry 97 98 11/03/20 09:36 Temperature Pulse Rate 74 Respiratory Rate Blood Pressure Pulse Oximetry Intake/Output Intake/Output: Intake & Output 10/31/20 11/01/20 11/02/20 11/03/20 23:59 23:59 23:59 23:59 Intake Total 1120 2380 1207 1
--- NOTE | 2020-11-03 12:30 | PM.PNNEP ---
Progress Note: A&P Assessment and Plan (1) ANDRADE (acute kidney injury): Code(s): N17.9 - Acute kidney failure, unspecified Status: Acute Assessment and Plan: ANDRADE urine electrolytes non pre renal urine eosinophils negative ultrasound negative UA shows blood and leukocytes. Urine culture showed Pseudomonas. He is on imipenem. his creatinine is stable at around 3. it was imnproving but stalled. he has eosinophilia. I doubt whether he has AIN. with his comorbidities, steroids would be risky. he had a biopsy last admission showing just chronic issues. 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 (2) Chronic kidney disease, stage IV (severe): Code(s): N18.4 - Chronic kidney disease, stage 4 (severe) Status: Chronic Assessment and Plan: baseline creatinine ~ 1.6 - 2.1mg/dl since January 2020 he may have a new baseline. due to CHF, diabetes, age, and vascular disease renal biopsy in July of this year with ATN and arteriosclerosis (3) Urinary tract infection: Code(s): N39.0 - Urinary tract infection, site not specified Status: Acute Assessment and Plan: urine culture with Pseudomonas on antibiotics (4) Hyperkalemia: Code(s): E87.5 - Hyperkalemia Status: Acute Assessment and Plan: resolved (5) Hypertension: Qualifiers: Hypertension type: unspecified Qualified Code(s): I10 - Essential (primary) hypertension Code(s): I10 - Essential (primary) hypertension Status: Chronic Assessment and Plan: Blood pressure doing pretty well (6) A-fib: Code(s): I48.91 - Unspecified atrial fibrillation Status: Chronic Assessment and Plan: rate control strategy on coumadin (7) Edema: Code(s): R60.9 - Edema, unspecified Status: Acute Assessment and Plan: continue diuretics. (8) Rash: Code(s): R21 - Rash and other nonspecific skin eruption Status: Acute Assessment and Plan: apparently chronic. symptomatic tx Subjective Date/time seen: 11/03/20 12:30 Interval history: patient is alert. swelling is about the same. some itching on arms. Exam Narrative: Exam Narrative: General: WD/WN male in NAD Heart: irregular rate and rhythm. no rub Lungs: clear Abdomen: BS+ nontender Extremities: no cyanosis or clubbing; 2+ edema Skin: chronic venous stasis dermatitis below his knees Objective Data Vital Signs Vital Signs: Vital Signs - 24 hr 11/02/20 13:10 11/02/20 13:50 11/02/20 20:30 Temperature 36.3 C L 36.4 C L Pulse Rate 72 76 80 Respiratory Rate 16 14 18 Blood Pressure 101/51 L 104/52 L Pulse Oximetry 99 97 97 11/02/20 22:00 11/02/20 23:00 11/03/20 06:00 Temperature 36.5 C 36.2 C L Pulse Rate 84 80 73 Respiratory Rate 18 18 Blood Pressure 118/55 L 128/74 Pulse Oximetry 97 98 11/03/20 09:36 Temperature Pulse Rate 74 Respiratory Rate Blood Pressure Pulse Oximetry Intake/Output Intake/Output: Intake & Output 10/31/20 11/01/20 11/02/20 11/03/20 23:59 23:59 23:59 23:59 Intake Total 1120 2380 1205 1340 Output Total 1630 600 Balance 1120 422 630 6760 Meds/Results Medications: Active Medications Generic Name Dose Route Start Last Admin Trade Name Freq PRN Reason Stop Dose Admin Hydrocodone Bitart/Acetaminophen 1 tab 11/02/20 08:42 11/02/20 18:05 Hydrocodone/Acetaminophen (*Crx) 5-325 Mg Tablet PO 1 tab Q4H PRN Administration Pain Rated 4-6 Ascorbic Acid 500 mg 10/26/20 17:00 11/03/20 09:36 Ascorbic Acid 500 Mg Tablet PO 500 mg BID MARY Administration Atorvastatin Calcium 40 mg 10/26/20 21:00 11/02/20 22:53 Atorvastatin 40 Mg Tablet PO 40 mg HS MARY Administration Bisacodyl 10 mg 10/26/20 14:11 Bisacodyl 10 Mg Suppository RECTAL DAILY PRN Constipation Bumetanide 2 mg 11/02/20 09:00 11/03/20 09:37 B
[2020-11-03 13:08] LABS: Glucose Point of Care 155 mg/dl (65-105)
[2020-11-03 14:00] VITALS: BP 133/68; PULSE 80; RESP 16; TEMP 36.2; O2SAT 98
--- NOTE | 2020-11-03 15:59 | PM.IMPN ---
Progress Note: A&P Assessment and Plan (1) Urinary tract infection in male: Code(s): N39.0 - Urinary tract infection, site not specified Status: Acute Assessment and Plan: Urine culture positive for Pseudomonas - continue imipenem day 7. Will discontinue this evening after last dose - Blood cultures negative (2) ANDRADE (acute kidney injury): Code(s): N17.9 - Acute kidney failure, unspecified Status: Acute Assessment and Plan: Remaining pretty consistent 3.6-4.0 -Unclear etiology at this time, although likely due to new medications spironolactone and entresto, urinary tract infection and dehydration. -Per pt's facility, pt was started on entresto recently 09/29/20 and spironolactone 10/22. both Entresto and spironolactone on hold -Renal US unremarkable. -He had a kidney biopsy 08/07/20 which showed acute tubular injury. -Continue oral bicarb -Appreciate nephrology consultation (3) Anemia in CKD (chronic kidney disease): Code(s): N18.9 - Chronic kidney disease, unspecified; D63.1 - Anemia in chronic kidney disease Status: Acute Assessment and Plan: Hgb remainingstable - Transfused 2 units pRBC today with improvement following - Iron panel suggestive of ACD likely from CKD and other comorbid conditions - Bone marrow biopsy July 2020 consistent with multiple myeloma however not requiring tx at this time. Discussed with oncologist Dr. Nowak. - Monitor CBC and transfuse prn - Continue PO iron supplementation - Received 20,000 units Epogen 11/02/ /u with Dr. Nowak in 2 weeks for repeat Epogen injection (4) Acute hyperkalemia: Code(s): E87.5 - Hyperkalemia Status: Resolved Assessment and Plan: resolved. - Likely secondary to ANDRADE -Continue to hold spironolactone and Entresto -Continue Bumex - Repeat BMP tomorrow (5) CHF (congestive heart failure): Qualifiers: Heart failure chronicity: acute on chronic Heart failure type: unspecified Qualified Code(s): I50.9 - Heart failure, unspecified Code(s): I50.9 - Heart failure, unspecified Status: Chronic Assessment and Plan: patient appears hypervolemic - CXR with cardiomegaly, congestion, likely pulmonary edema - echo with reduced EF 30-35% - continue diuresis with Bumex 2 mg IV b.i.d. and metolazone - monitor intake and output - will do a fluid restriction diet (6) Occult blood in stools: Code(s): R19.5 - Other fecal abnormalities Status: Acute Assessment and Plan: occult blood positive on 07/16/2020 and 11/02/2020 - he is asymptomatic with no melena or hematochezia - continue Protonix - he will need outpatient GI follow-up for EGD and possibly colonoscopy. consider inpatient if H&H declines further (7) Supratherapeutic INR: Code(s): R79.1 - Abnormal coagulation profile Status: Acute Assessment and Plan: Pt has a mechanical valve maintained on warfarin - INR is supratherapeutic at 4.4. - Warfarin on hold for 3 days with persistent elevated INR - likely due to kidney disease - No need for warfarin reversal at this point - Continue to hold and monitor INR daily - Will likely need dose reduction of warfarin as he has frequently been supratherapeutic (8) Atrial fibrillation: Qualifiers: Atrial fibrillation type: unspecified Qualified Code(s): I48.91 - Unspecified atrial fibrillation Code(s): I48.91 - Unspecified atrial fibrillation Status: Chronic Assessment and Plan: Pt has a hx of this with no current issues. - Rate is controlled at this time - Continue metoprolol - Holding warfarin (9) Hypertension: Qualifiers: Hypertension type: unspecified Qualified Code(s): I10 - Essential (primary) hypertension Code(s): I10 - Essential (primary) hypertension Status: Chronic Assessment and Plan: Last BP 133/68 - Continue with metopro
[2020-11-03 17:21] LABS: Glucose Point of Care 165 mg/dl (65-105)
[2020-11-03 21:34] VITALS: BP 147/64; PULSE 91; RESP 20; TEMP 36.7; O2SAT 96
[2020-11-03] MEDS: traZODone HCL 25 MG TABLET PO (21:38)
[2020-11-03] MEDS: ATORVASTATIN 40 MG TABLET PO (21:38)
[2020-11-03] MEDS: MELATONIN 3 MG TABLET 6 MG PO (21:38)
[2020-11-03] MEDS: SENNOSIDES 8.6 MG TABLET 17.2 MG PO (21:38)
[2020-11-03 21:39] VITALS: PULSE 90
[2020-11-03 22:15] LABS: Glucose Point of Care 180 mg/dl (65-105)
[2020-11-04 06:00] VITALS: BP 134/56; PULSE 83; RESP 18; TEMP 36.6; O2SAT 95
[2020-11-04 07:14] LABS: Basophils Percent Auto 0.2 % (0.2-1.2); Eosinophils Absolute Auto 2.7 K/mm3 (0-0.3); Eosinophils Percent Auto 28.8 % (0-4.4); Hematocrit 25.9 % (42.0-52.0); Hemoglobin 8.3 g/dL (14.0-18.0); Immature Granulocyte Absolute 0.04 K/mm3 (0.00-0.031); Immature Granulocyte Percent A 0.4 % (0-0.5); Lymphocytes Absolute Auto 0.76 K/mm3 (0.9-3.2); Lymphocytes Percent Auto 8.2 % (18.3-44.2); Mean Corpuscular Hemoglobin 27.3 pg (26-34); Mean Corpuscular Volume 85.2 fl (80-100); Mean Platelet Volume 12.2 fl (7.4-10.4); Monocytes Percent Auto 10.9 % (2.6-8.5); Neutrophils Absolute Auto 4.8 K/mm3 (1.3-6.7); Neutrophils Percent Auto 51.5 % (45.5-73.1); Platelet Count Result 124 k/mm3 (150-375); Red Blood Count 3.04 M/mm3 (4.6-6.20); White Blood Count 9.3 K/mm3 (4.5-10.0)
[2020-11-04 07:24] LABS: INR 3.4; Prothrombin Time 33.4 Seconds (11.1-14.7)
[2020-11-04 07:26] LABS: Anion Gap 10 mmol/L (8-16); Blood Urea Nitrogen 44 mg/dL (9-20); Calcium 8.7 mg/dL (8.4-10.2); Carbon Dioxide 23 mmol/L (22-30); Chloride 104 mmol/L (98-107); Estimated CRCL calculation 16 ml/min; Estimated Glomerular Filt Rate 15; Glucose 109 mg/dL (65-110); Potassium 4.5 mmol/L (3.4-5.0); Sodium 137 mmol/L (137-145)
[2020-11-04 08:15] LABS: Glucose Point of Care 130 mg/dl (65-105)
--- NOTE | 2020-11-04 08:34 | P.PNNP_ITS ---
Progress Note: A&P Assessment and Plan (1) ANDRADE (acute kidney injury): Code(s): N17.9 - Acute kidney failure, unspecified Status: Acute Assessment and Plan: * ANDRADE * urine electrolytes non pre renal * urine eosinophils negative * ultrasound negative * UA shows blood and leukocytes. Urine culture showed Pseudomonas. * He is on imipenem. * his creatinine is up and down between 3 and 4. * it was imnproving but stalled. he has eosinophilia. I doubt whether he has AIN. with his comorbidities, steroids would be risky. * he had a biopsy last admission showing just chronic issues. 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 (2) Chronic kidney disease, stage IV (severe): Code(s): N18.4 - Chronic kidney disease, stage 4 (severe) Status: Chronic Assessment and Plan: * baseline creatinine ~ 1.6 - 2.1mg/dl since January 2020 * he may have a new baseline. * due to CHF, diabetes, age, and vascular disease * renal biopsy in July of this year with ATN and arteriosclerosis (3) Urinary tract infection: Code(s): N39.0 - Urinary tract infection, site not specified Status: Acute Assessment and Plan: * urine culture with Pseudomonas * on antibiotics (4) Hyperkalemia: Code(s): E87.5 - Hyperkalemia Status: Acute Assessment and Plan: * resolved (5) Hypertension: Qualifiers: Hypertension type: unspecified Qualified Code(s): I10 - Essential (primary) hypertension Code(s): I10 - Essential (primary) hypertension Status: Chronic Assessment and Plan: * Blood pressure doing pretty well (6) A-fib: Code(s): I48.91 - Unspecified atrial fibrillation Status: Chronic Assessment and Plan: * rate control strategy * on coumadin (7) Edema: Code(s): R60.9 - Edema, unspecified Status: Acute Assessment and Plan: continue diuretics. Will increase the dose and try some albumin. (8) Rash: Code(s): R21 - Rash and other nonspecific skin eruption Status: Acute Assessment and Plan: apparently chronic. symptomatic tx He still has significant eosinophilia. Subjective Date/time seen: 11/04/20 08:34 Interval history: patient is alert. still lots of scrotal swelling. Exam Narrative: Exam Narrative: General: WD/WN male in NAD Heart: irregular rate and rhythm. no rub Lungs: clear Bilaterally Abdomen: BS+ nontender Extremities: no cyanosis or clubbing; 2+ edema Skin: chronic venous stasis dermatitis below his knees Objective Data Vital Signs Vital Signs: Vital Signs - 24 hr 11/03/20 09:36 11/03/20 14:00 11/03/20 21:34 Temperature 36.2 C L 36.7 C Pulse Rate 74 80 91 Respiratory Rate 16 20 Blood Pressure 133/68 147/64 H Pulse Oximetry 98 96 11/03/20 21:39 11/04/20 06:00 Temperature 36.6 C Pulse Rate 90 83 Respiratory Rate 18 Blood Pressure 134/56 L Pulse Oximetry 95 Intake/Output Intake/Output: Intake & Output 11/01/20 11/02/20 11/03/20 11/04/20 23:59 23:59 23:59 23:59 Intake Total 2380 1205 2980 450 Output Total 1630 600 900 750 Balance 394 774 3478 -300 Meds/Results Medications:
--- NOTE | 2020-11-04 08:34 | PM.PNNEP ---
Progress Note: A&P Assessment and Plan (1) ANDRADE (acute kidney injury): Code(s): N17.9 - Acute kidney failure, unspecified Status: Acute Assessment and Plan: ANDRADE urine electrolytes non pre renal urine eosinophils negative ultrasound negative UA shows blood and leukocytes. Urine culture showed Pseudomonas. He is on imipenem. his creatinine is up and down between 3 and 4. it was imnproving but stalled. he has eosinophilia. I doubt whether he has AIN. with his comorbidities, steroids would be risky. he had a biopsy last admission showing just chronic issues. 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 (2) Chronic kidney disease, stage IV (severe): Code(s): N18.4 - Chronic kidney disease, stage 4 (severe) Status: Chronic Assessment and Plan: baseline creatinine ~ 1.6 - 2.1mg/dl since January 2020 he may have a new baseline. due to CHF, diabetes, age, and vascular disease renal biopsy in July of this year with ATN and arteriosclerosis (3) Urinary tract infection: Code(s): N39.0 - Urinary tract infection, site not specified Status: Acute Assessment and Plan: urine culture with Pseudomonas on antibiotics (4) Hyperkalemia: Code(s): E87.5 - Hyperkalemia Status: Acute Assessment and Plan: resolved (5) Hypertension: Qualifiers: Hypertension type: unspecified Qualified Code(s): I10 - Essential (primary) hypertension Code(s): I10 - Essential (primary) hypertension Status: Chronic Assessment and Plan: Blood pressure doing pretty well (6) A-fib: Code(s): I48.91 - Unspecified atrial fibrillation Status: Chronic Assessment and Plan: rate control strategy on coumadin (7) Edema: Code(s): R60.9 - Edema, unspecified Status: Acute Assessment and Plan: continue diuretics. Will increase the dose and try some albumin. (8) Rash: Code(s): R21 - Rash and other nonspecific skin eruption Status: Acute Assessment and Plan: apparently chronic. symptomatic tx He still has significant eosinophilia. Subjective Date/time seen: 11/04/20 08:34 Interval history: patient is alert. still lots of scrotal swelling. Exam Narrative: Exam Narrative: General: WD/WN male in NAD Heart: irregular rate and rhythm. no rub Lungs: clear Bilaterally Abdomen: BS+ nontender Extremities: no cyanosis or clubbing; 2+ edema Skin: chronic venous stasis dermatitis below his knees Objective Data Vital Signs Vital Signs: Vital Signs - 24 hr 11/03/20 09:36 11/03/20 14:00 11/03/20 21:34 Temperature 36.2 C L 36.7 C Pulse Rate 74 80 91 Respiratory Rate 16 20 Blood Pressure 133/68 147/64 H Pulse Oximetry 98 96 11/03/20 21:39 11/04/20 06:00 Temperature 36.6 C Pulse Rate 90 83 Respiratory Rate 18 Blood Pressure 134/56 L Pulse Oximetry 95 Intake/Output Intake/Output: Intake & Output 11/01/20 11/02/20 11/03/20 11/04/20 23:59 23:59 23:59 23:59 Intake Total 2380 1205 2980 450 Output Total 1630 600 900 750 Balance 362 570 0348 -300 Meds/Results Medications: Active Medications Generic Name Dose Route Start Last Admin Trade Name Freq PRN Reason Stop Dose Admin Hydrocodone Bitart/Acetaminophen 1 tab 11/02/20 08:42 11/02/20 18:05 Hydrocodone/Acetaminophen (*Crx) 5-325 Mg Tablet PO 1 tab Q4H PRN Administration Pain Rated 4-6 Ascorbic Acid 500 mg 10/26/20 17:00 11/03/20 17:05 Ascorbic Acid 500 Mg Tablet PO 500 mg BID MARY Administration Atorvastatin Calcium 40 mg 10/26/20 21:00 11/03/20 21:38 Atorvastatin 40 Mg Tablet PO 40 mg HS MARY Administration Bisacodyl 10 mg 10/26/20 14:11 Bisacodyl 10 Mg Suppository RECTAL DAILY PRN Constipation Bumetanide 2 mg 11/02/20 09:00 11/03/20 17:04 Bumetanide Inj 1 Mg/4 Ml Vial IV PUSH 2 mg BID
[2020-11-04] MEDS: PANTOPRAZOLE 40 MG TABLET PO (08:37)
[2020-11-04] MEDS: FERROUS SULFATE 324 MG TABLET PO (08:37)
[2020-11-04] MEDS: ASCORBIC ACID 500 MG TABLET PO ×2 (08:37→16:34)
[2020-11-04] MEDS: BUMETANIDE INJ 1 MG/4 ML VIAL 2 MG IV PUSH ×2 (08:37→16:34)
[2020-11-04] MEDS: metOLazone 5 MG TABLET PO (08:38)
[2020-11-04] MEDS: DULoxetine HCL 30 MG CAPSULE.DR PO (08:38)
[2020-11-04] MEDS: FINASTERIDE 5 MG TABLET PO (08:38)
[2020-11-04] MEDS: MAGNESIUM OXIDE 200 MG TABLET PO ×2 (08:38→21:26)
[2020-11-04 08:39] VITALS: PULSE 83
[2020-11-04] MEDS: PREGABALIN (*CRX) 75 MG CAPSULE PO ×2 (08:39→16:34)
[2020-11-04] MEDS: METOPROLOL TARTRATE 12.5 MG TABLET PO ×2 (08:39→21:26)
[2020-11-04] MEDS: SODIUM BICARBONATE TAB 650 MG TABLET PO ×2 (08:39→16:34)
[2020-11-04] MEDS: TAMSULOSIN HCL 0.4 MG CAPSULE PO (08:39)
[2020-11-04] MEDS: LACTIC ACID 12% LOTION 225 BTL 1 APPLIC TOPICAL (08:42)
[2020-11-04] MEDS: ALBUMIN HUMAN 25% 25 GM/100 ML 100 ML IVPB ×2 (09:49→21:25)
[2020-11-04 11:50] LABS: Glucose Point of Care 158 mg/dl (65-105)
[2020-11-04 14:00] VITALS: BP 131/69; PULSE 82; RESP 20; TEMP 36.3; O2SAT 98
--- NOTE | 2020-11-04 16:09 | PM.IMPN ---
Progress Note: A&P Assessment and Plan (1) Urinary tract infection in male: Code(s): N39.0 - Urinary tract infection, site not specified Status: Acute Assessment and Plan: Urine culture positive for Pseudomonas - completed 7 days of imipenem on 11/03/2020 - Blood cultures negative (2) ANDRADE (acute kidney injury): Code(s): N17.9 - Acute kidney failure, unspecified Status: Acute Assessment and Plan: Remaining pretty consistent 3.6-4.0 -Unclear etiology at this time, although likely due to new medications spironolactone and entresto, urinary tract infection and dehydration. -Per pt's facility, pt was started on entresto recently 09/29/20 and spironolactone 10/22. both Entresto and spironolactone on hold -Renal US unremarkable. -He had a kidney biopsy 08/07/20 which showed acute tubular injury. -Continue oral bicarb -Appreciate nephrology consultation (3) Anemia in CKD (chronic kidney disease): Code(s): N18.9 - Chronic kidney disease, unspecified; D63.1 - Anemia in chronic kidney disease Status: Acute Assessment and Plan: Hgb remainingstable - Transfused 2 units pRBC today with improvement following - Iron panel suggestive of ACD likely from CKD and other comorbid conditions - Bone marrow biopsy July 2020 consistent with multiple myeloma however not requiring tx at this time. Discussed with oncologist Dr. Nowak. - Monitor CBC and transfuse prn - Continue PO iron supplementation - Received 20,000 units Epogen 11/02. F/u with Dr. Nowak in 2 weeks for repeat Epogen injection (4) Acute hyperkalemia: Code(s): E87.5 - Hyperkalemia Status: Resolved Assessment and Plan: resolved. - Likely secondary to ANDRADE -Continue to hold spironolactone and Entresto -Continue Bumex (5) CHF (congestive heart failure): Qualifiers: Heart failure chronicity: acute on chronic Heart failure type: unspecified Qualified Code(s): I50.9 - Heart failure, unspecified Code(s): I50.9 - Heart failure, unspecified Status: Chronic Assessment and Plan: patient appears hypervolemic - CXR with cardiomegaly, congestion, likely pulmonary edema and now with complaints of scrotal edema - echo with reduced EF 30-35% - continue diuresis with Bumex 2 mg IV b.i.d. and metolazone. Albumin added. - monitor intake and output - will do a fluid restriction diet - I will ask cardiology to see him in consultation as he has severely reduced EF, is not diuresing well, and not able to be on appropriate therapy with entresto and spironolactone due to ANDRADE (6) Occult blood in stools: Code(s): R19.5 - Other fecal abnormalities Status: Acute Assessment and Plan: occult blood positive on 07/16/2020 and 11/02/2020 - he is asymptomatic with no melena or hematochezia - continue Protonix - he will need outpatient GI follow-up for EGD and possibly colonoscopy. consider inpatient if H&H declines further (7) Supratherapeutic INR: Code(s): R79.1 - Abnormal coagulation profile Status: Acute Assessment and Plan: Pt has a mechanical valve maintained on warfarin - INR has been supratherapeutic for most of admission, felt to be related to poor renal clearance - In therapeutic window down to 3.4 today - Will hold warfarin for one more day as I expect he would likely be supratherapeutic tomorrow if he received a dose of warfarin this evening. - Check INR in the morning - Will likely need dose reduction as he has frequently been supratherapeutic (8) Atrial fibrillation: Qualifiers: Atrial fibrillation type: unspecified Qualified Code(s): I48.91 - Unspecified atrial fibrillation Code(s): I48.91 - Unspecified atrial fibrillation Status: Chronic Assessment and Plan: Pt has a hx of this with no current issues. - Rate is controlled at this time - Continue metoprolol - Holding warfarin
[2020-11-04 16:58] LABS: Glucose Point of Care 122 mg/dl (65-105)
[2020-11-04] MEDS: diphenhydrAMINE HCl CAP 25 MG CAPSULE PO (21:26)
[2020-11-04] MEDS: MELATONIN 3 MG TABLET 6 MG PO (21:26)
[2020-11-04] MEDS: ATORVASTATIN 40 MG TABLET PO (21:26)
[2020-11-04] MEDS: traZODone HCL 25 MG TABLET PO (21:26)
[2020-11-04 22:00] VITALS: BP 144/60; PULSE 91; RESP 18; TEMP 36.8; O2SAT 96
[2020-11-05 06:00] VITALS: BP 148/68; PULSE 80; RESP 16; TEMP 36.4; O2SAT 96
[2020-11-05 06:28] LABS: Glucose Point of Care 227 mg/dl (65-105)
[2020-11-05 07:00] LABS: Hematocrit 26.2 % (42.0-52.0); Hemoglobin 8.4 g/dL (14.0-18.0); Mean Corpuscular HGB Conc 32.1 g/dl (32-36); Mean Corpuscular Hemoglobin 27.3 pg (26-34); Mean Corpuscular Volume 85.1 fl (80-100); Mean Platelet Volume 12.2 fl (7.4-10.4); Platelet Count Result 122 k/mm3 (150-375); Red Blood Count 3.08 M/mm3 (4.6-6.20); Red Cell Distribution Width 17.8 % (11.5-14.5); White Blood Count 8.6 K/mm3 (4.5-10.0)
[2020-11-05 07:07] LABS: INR 2.6; Prothrombin Time 26.9 Seconds (11.1-14.7)
[2020-11-05 07:10] LABS: Albumin Level 3.9 g/dL (3.5-5.1); Anion Gap 14 mmol/L (8-16); Blood Urea Nitrogen 43 mg/dL (9-20); Calcium 9.4 mg/dL (8.4-10.2); Carbon Dioxide 25 mmol/L (22-30); Chloride 100 mmol/L (98-107); Estimated CRCL calculation 16 ml/min; Estimated Glomerular Filt Rate 14; Glucose 107 mg/dL (65-110); Phosphorus 6.4 mg/dL (2.5-4.5); Sodium 139 mmol/L (137-145)
[2020-11-05] MEDS: FERROUS SULFATE 324 MG TABLET PO (08:22)
[2020-11-05 08:23] VITALS: PULSE 80
[2020-11-05] MEDS: DULoxetine HCL 30 MG CAPSULE.DR PO (08:23)
[2020-11-05] MEDS: BUMETANIDE INJ 1 MG/4 ML VIAL 2 MG IV PUSH (08:23)
[2020-11-05] MEDS: MAGNESIUM OXIDE 200 MG TABLET PO ×2 (08:23→21:17)
[2020-11-05] MEDS: ASCORBIC ACID 500 MG TABLET PO ×2 (08:23→16:29)
[2020-11-05] MEDS: metOLazone 5 MG TABLET PO (08:23)
[2020-11-05] MEDS: FINASTERIDE 5 MG TABLET PO (08:23)
[2020-11-05] MEDS: METOPROLOL TARTRATE 12.5 MG TABLET PO ×2 (08:23→21:20)
[2020-11-05] MEDS: TAMSULOSIN HCL 0.4 MG CAPSULE PO (08:24)
[2020-11-05] MEDS: SODIUM BICARBONATE TAB 650 MG TABLET PO ×2 (08:24→16:29)
[2020-11-05] MEDS: PANTOPRAZOLE 40 MG TABLET PO (08:24)
[2020-11-05] MEDS: PREGABALIN (*CRX) 75 MG CAPSULE PO ×2 (08:25→16:29)
[2020-11-05] MEDS: LACTIC ACID 12% LOTION 225 BTL 1 APPLIC TOPICAL (08:26)
[2020-11-05 08:37] LABS: Glucose Point of Care 110 mg/dl (65-105)
--- NOTE | 2020-11-05 08:55 | PM.PNNEP ---
Progress Note: A&P Assessment and Plan (1) ANDRADE (acute kidney injury): Code(s): N17.9 - Acute kidney failure, unspecified Status: Acute Assessment and Plan: ANDRADE urine electrolytes non pre renal urine eosinophils negative ultrasound negative UA shows blood and leukocytes. Urine culture showed Pseudomonas. He is on imipenem. his creatinine is up and down between 3 and 4. Today it is 4.1. It seems that the patient swelling is not improved in spite of large doses of diuretics and climbing creatinine. Will try a bumetanide drip. If that does not work we may need to do ultrafiltration. I talked at length with the patient. His biopsy did show lots of scar tissue and so his kidneys might be wearing out . We could try ultrafiltration to get the fluid off and sometimes the kidneys kick in because of improved renal venous hypertension. However it might be the case that the patient just needs to start dialysis. All this fluid may be diluting his creatinine giving a false impression at the kidney function is better than it really is. The patient understands and agrees with the plan. (2) Chronic kidney disease, stage IV (severe): Code(s): N18.4 - Chronic kidney disease, stage 4 (severe) Status: Chronic Assessment and Plan: baseline creatinine ~ 1.6 - 2.1mg/dl since January 2020 he may have a new baseline. due to CHF, diabetes, age, and vascular disease renal biopsy in July of this year with ATN and arteriosclerosis (3) Urinary tract infection: Code(s): N39.0 - Urinary tract infection, site not specified Status: Acute Assessment and Plan: urine culture with Pseudomonas on antibiotics (4) Hyperkalemia: Code(s): E87.5 - Hyperkalemia Status: Acute Assessment and Plan: resolved (5) Hypertension: Qualifiers: Hypertension type: unspecified Qualified Code(s): I10 - Essential (primary) hypertension Code(s): I10 - Essential (primary) hypertension Status: Chronic Assessment and Plan: Blood pressure doing pretty well (6) A-fib: Code(s): I48.91 - Unspecified atrial fibrillation Status: Chronic Assessment and Plan: rate control strategy on coumadin (7) Edema: Code(s): R60.9 - Edema, unspecified Status: Acute Assessment and Plan: continue diuretics. Will Try a Bumetanide drip and try some albumin. in the meantime will get venous Dopplers just to be sure it is not a clot (8) Rash: Code(s): R21 - Rash and other nonspecific skin eruption Status: Acute Assessment and Plan: apparently chronic. symptomatic tx He still has significant eosinophilia. Subjective Date/time seen: 11/05/20 08:55 Interval history: patient is alert. still lots of scrotal swelling. not much improvement. Exam Narrative: Exam Narrative: General: WD/WN male in NAD Heart: irregular rate and rhythm. no rub Lungs: clear Bilaterally Abdomen: BS+ nontender Extremities: no cyanosis or clubbing; 2+ edema Skin: chronic venous stasis dermatitis below his knees Objective Data Vital Signs Vital Signs: Vital Signs - 24 hr 11/04/20 14:00 11/04/20 22:00 11/05/20 06:00 Temperature 36.3 C L 36.8 C 36.4 C L Pulse Rate 82 91 80 Respiratory Rate 20 18 16 Blood Pressure 131/69 144/60 H 148/68 H Pulse Oximetry 98 96 96 11/05/20 08:23 Temperature Pulse Rate 80 Respiratory Rate Blood Pressure Pulse Oximetry Intake/Output Intake/Output: Intake & Output 11/02/20 11/03/20 11/04/20 11/05/20 23:59 23:59 23:59 23:59 Intake Total 1205 2980 1030 450 Output Total 448 919 4628 750 Balance 605 2080 -470 -300 Meds/Results Medications: Active Medications Generic Name Dose Route Start Last Admin Trade Name Freq PRN Reason Stop Dose Admin Hydrocodone Bitart/Acetaminophen 1 tab 11/02/20 08:42 11/02/20 18
[2020-11-05] MEDS: ALBUMIN HUMAN 25% 25 GM/100 ML 100 ML IVPB ×2 (09:50→21:15)
[2020-11-05] MEDS: diphenhydrAMINE HCl CAP 25 MG CAPSULE PO (09:57)
[2020-11-05 11:33] LABS: Glucose Point of Care 152 mg/dl (65-105)
--- NOTE | 2020-11-05 11:34 | PM.CNCAR ---
Assessment and Plan Assessment and plan (1) CHF (congestive heart failure): Qualifiers: Heart failure chronicity: acute on chronic Heart failure type: unspecified Qualified Code(s): I50.9 - Heart failure, unspecified Code(s): I50.9 - Heart failure, unspecified Status: Chronic Assessment and Plan: 74-year-old male with CAD, CHF /biventricular failure with reduced LVEF at 30-35% from 10/29/2019 echocardiogram; history of [employer] mechanical aortic valve replacement and CABG with unknown graft ( in 1982 as per patient, op report not available); atrial fibrillation on chronic anticoagulation with warfarin; CKD, chronic anemia, multiple myeloma. patient admitted from half-way with acute on chronic renal insufficiency, hyperkalemia. He has chronic biventricular failure, last EF 30 35% from 10/29/2019 echo, and currently has volume overload in the setting of CHF and renal insufficiency. - Continue IV bumetanide with albumin; diuresis being managed by Nephrology. - Sacubitril/valsartan, and spironolactone on hold for now due to Acute on chronic renal insufficiency. May resume Entresto when renal function stabilizes. - Patient has not had regular cardiology follow-up. Patient is willing to follow up with us for longitudinal cardiac care after hospital discharge. (2) History of mechanical aortic valve replacement: Code(s): Z95.2 - Presence of prosthetic heart valve Status: Acute Assessment and Plan: History of remote mechanical aortic valve replacement with normal functioning valve from 10/29/2019 echo with a mean gradient of 5 mmHg. Continue anticoagulation with warfarin, current INR is 2.6. (3) Atrial fibrillation: Qualifiers: Atrial fibrillation type: unspecified Qualified Code(s): I48.91 - Unspecified atrial fibrillation Code(s): I48.91 - Unspecified atrial fibrillation Status: Chronic Assessment and Plan: Fairly rate controlled with low-dose metoprolol tartrate. Rate control plus anticoagulation. 12 lead EKG (4) Supratherapeutic INR: Code(s): R79.1 - Abnormal coagulation profile Status: Acute Assessment and Plan: Current INR is therapeutic. (5) Neuropathy: Code(s): G62.9 - Polyneuropathy, unspecified Status: Acute Assessment and Plan: management of other medical problems as per primary team including local wound care. History of Present Illness History of Present Illness Consult date/time: 11/05/20 11:34 DATE OF CONSULT: 11/05/2020 REASON FOR CONSULT: CHF REQUESTING PHYSICIAN:Lisa Kauffman PA-C CHIEF COMPLAINT: Brought to hospital with abnormal labs HPI: 74-year-old male with CAD, CHF /biventricular failure with reduced LVEF at 30-35% from 10/29/2019 echocardiogram; history of [employer] mechanical aortic valve replacement and CABG with unknown graft ( in 1982 as per patient, op report not available); atrial fibrillation on chronic anticoagulation with warfarin; CKD, chronic anemia, multiple myeloma Patient has complex cardiac history, and used to follow-up with a appraisal technician at [facility] as per patient. He has not had a regular cardiology follow-up for last couple of years as per patient. He currently lives in a half-way. He gives remote history of CABG and mechanical aortic valve replacement in ?1982. He also has history of atrial fibrillation. He has been on chronic anticoagulation with warfarin. He has sedentary lifestyle, use walker for ambulation. He denies any chest pain or shortness of breath for his level of activity. He was brought to [facility] on 10/26/2020 from half-way with abnormal labs showing acute on chronic renal insufficiency. Patient has baseline creatinine of 1.9, and was found to have creatinine level of 4.1 at admission. His potassium was 5.1. Patient's spironolactone and Entresto was placed on hold. Patient was also found to have UTI
--- NOTE | 2020-11-05 12:23 | ECG_ITS ---
Measurements Intervals [place] Rate: 75 P: DE: 0 QRS: -60 QRSD: 137 T: 95 QT: 423 QTc: 475 Interpretive Statements ATRIAL FIBRILLATION VENTRICULAR PREMATURE COMPLEX LEFT AXIS DEVIATION LEFT BUNDLE BRANCH BLOCK ABNORMAL ECG Electronically Signed On 11-05-2020 16:26:14 CDT by Cheko Kaminski D.O.
[2020-11-05 14:56] VITALS: BP 122/71; PULSE 82; RESP 14; TEMP 36.7; O2SAT 93
--- NOTE | 2020-11-05 15:37 | PM.IMPN ---
Progress Note: A&P Assessment and Plan (1) Urinary tract infection in male: Code(s): N39.0 - Urinary tract infection, site not specified Status: Acute Assessment and Plan: Urine culture positive for Pseudomonas - completed 7 days of imipenem on 11/03/2020 - Blood cultures negative (2) ANDRADE (acute kidney injury): Code(s): N17.9 - Acute kidney failure, unspecified Status: Acute Assessment and Plan: Remaining pretty consistent 3.6-4.0 -Unclear etiology at this time, although likely due to new medications spironolactone and entresto, urinary tract infection and dehydration. -He was started on entresto recently 09/29/20 and spironolactone 10/22. both Entresto and spironolactone on hold -Renal US unremarkable. -He had a kidney biopsy 08/07/20 which showed acute tubular injury. -Continue oral bicarb -Appreciate nephrology consultation (3) Anemia in CKD (chronic kidney disease): Code(s): N18.9 - Chronic kidney disease, unspecified; D63.1 - Anemia in chronic kidney disease Status: Acute Assessment and Plan: Hgb remainingstable - Transfused 2 units pRBC 11/02 with improvement following - Iron panel suggestive of ACD likely from CKD and other comorbid conditions - Also with positive occult blood in stool - Bone marrow biopsy July 2020 consistent with multiple myeloma however not requiring tx at this time. Discussed with oncologist Dr. Nowak. - Monitor CBC and transfuse prn - Continue PO iron supplementation - Received 20,000 units Epogen 11/02. F/u with Dr. Nowak in 2 weeks for repeat Epogen injection (4) Acute hyperkalemia: Code(s): E87.5 - Hyperkalemia Status: Resolved Assessment and Plan: Resolved. - Likely secondary to ANDRADE -Continue to hold spironolactone and Entresto -Continue Bumex (5) CHF (congestive heart failure): Qualifiers: Heart failure chronicity: acute on chronic Heart failure type: unspecified Qualified Code(s): I50.9 - Heart failure, unspecified Code(s): I50.9 - Heart failure, unspecified Status: Chronic Assessment and Plan: patient appears hypervolemic - CXR with cardiomegaly, congestion, likely pulmonary edema and now with complaints of scrotal edema - echo with reduced EF 30-35% - continue diuresis with IV bumex drip, albumin, and metolazone managed per nephrology - monitor intake and output - will do a fluid restriction diet - appreciate cardiology input. Continue to hold entresto and spironolactone due to ANDRADE. Resume if/when appropriate (6) Occult blood in stools: Code(s): R19.5 - Other fecal abnormalities Status: Acute Assessment and Plan: occult blood positive on 07/16/2020 and 11/02/2020 - he is asymptomatic with no melena or hematochezia - continue Protonix - he will need outpatient GI follow-up for EGD and possibly colonoscopy. consider inpatient consult if H&H declines further (7) Supratherapeutic INR: Code(s): R79.1 - Abnormal coagulation profile Status: Acute Assessment and Plan: Pt has a mechanical valve maintained on warfarin - INR has been supratherapeutic for most of admission, felt to be related to poor renal clearance - In therapeutic window today at 2.6 - Resume warfarin. Will decrease to 3 mg daily - Check INR in the morning (8) Atrial fibrillation: Qualifiers: Atrial fibrillation type: unspecified Qualified Code(s): I48.91 - Unspecified atrial fibrillation Code(s): I48.91 - Unspecified atrial fibrillation Status: Chronic Assessment and Plan: Pt has a hx of this with no current issues. - Rate is controlled at this time - Continue metoprolol - Resume warfarin (9) Hypertension: Qualifiers: Hypertension type: unspecified Qualified Code(s): I10 - Essential (primary) hypertension Code(s): I10 - Essential (primary) hypertension Status: Chroni
[2020-11-05] MEDS: WARFARIN (*PBKC) 3 MG TABLET PO (16:30)
[2020-11-05 17:05] LABS: Glucose Point of Care 139 mg/dl (65-105)
[2020-11-05 20:15] VITALS: PULSE 98; RESP 18; O2SAT 94
[2020-11-05] MEDS: ATORVASTATIN 40 MG TABLET PO (21:17)
[2020-11-05] MEDS: MELATONIN 3 MG TABLET 6 MG PO (21:19)
[2020-11-05] MEDS: SENNOSIDES 8.6 MG TABLET 17.2 MG PO (21:19)
[2020-11-05 21:20] VITALS: PULSE 76
[2020-11-05] MEDS: traZODone HCL 25 MG TABLET PO (21:22)
[2020-11-05 21:40] VITALS: BP 141/68; PULSE 98; RESP 18; TEMP 37.1; O2SAT 94
[2020-11-06 00:33] LABS: Glucose Point of Care 169 mg/dl (65-105)
[2020-11-06 05:51] VITALS: BP 140/75; PULSE 90; RESP 18; TEMP 37; O2SAT 90
[2020-11-06 06:27] LABS: Hematocrit 27.1 % (42.0-52.0); Hemoglobin 8.5 g/dL (14.0-18.0)
[2020-11-06 06:38] LABS: Albumin Level 4.3 g/dL (3.5-5.1); Anion Gap 13 mmol/L (8-16); Blood Urea Nitrogen 47 mg/dL (9-20); Calcium 9.4 mg/dL (8.4-10.2); Carbon Dioxide 28 mmol/L (22-30); Chloride 100 mmol/L (98-107); Estimated CRCL calculation 15 ml/min; Estimated Glomerular Filt Rate 14; Glucose 126 mg/dL (65-110); Phosphorus 6.5 mg/dL (2.5-4.5); Potassium 4.1 mmol/L (3.4-5.0); Sodium 141 mmol/L (137-145)
[2020-11-06 06:42] LABS: INR 2.2; Prothrombin Time 24.2 Seconds (11.1-14.7)
[2020-11-06 07:05] LABS: Glucose Point of Care 130 mg/dl (65-105)
[2020-11-06] MEDS: metOLazone 5 MG TABLET PO (09:10)
[2020-11-06] MEDS: DULoxetine HCL 30 MG CAPSULE.DR PO (09:10)
[2020-11-06] MEDS: MAGNESIUM OXIDE 200 MG TABLET PO ×2 (09:11→21:30)
[2020-11-06] MEDS: PANTOPRAZOLE 40 MG TABLET PO (09:11)
[2020-11-06] MEDS: ASCORBIC ACID 500 MG TABLET PO ×2 (09:11→16:43)
[2020-11-06] MEDS: TAMSULOSIN HCL 0.4 MG CAPSULE PO (09:11)
[2020-11-06] MEDS: FERROUS SULFATE 324 MG TABLET PO (09:11)
[2020-11-06] MEDS: FINASTERIDE 5 MG TABLET PO (09:11)
[2020-11-06 09:12] VITALS: PULSE 88
[2020-11-06] MEDS: METOPROLOL TARTRATE 12.5 MG TABLET PO ×2 (09:12→21:30)
[2020-11-06] MEDS: LACTIC ACID 12% LOTION 225 BTL 1 APPLIC TOPICAL (09:16)
--- NOTE | 2020-11-06 10:58 | PCNFU ---
Nutrition Follow-Up Complete: Increased protein needs related to multiple wounds as evidenced by a nutrition consult and wound assessment. Goal: Have patient meet estimated nutritional needs. Patient is meeting current goal. No new goal. Pt current nutrition is Renal Dialysis Diet with FR 1800 ml Last recorded weight is 95.6 kg, no new weight to reported. Recommend new weight. Bowel Motility:+BM reported 11/05 Labs Reviewed:PO4 6.5,BUN 47,GFR 14,CR 4.3,Glu 126,Hct 27.1,Hgb 8.5 Meds Noted:Senokot,Lyrica, Protonix, Lopressor,Coumadin,Proscar,Lipitor, Vit C, Cymbalta, [place]. Additional Notes: Patient seen today for nutrition follow up. He states to eating well on Renal Dialysis diet- 100% of meals. receiving Glucerna once daily providing an additional 220 kcals and 10 gms protein. Skin: Venous Stasis ulcers noted on bilateral legs. Agree with diet orders. Monitoring: Will follow up in 7 days.
[2020-11-06 12:19] LABS: Glucose Point of Care 112 mg/dl (65-105)
--- NOTE | 2020-11-06 12:23 | PM.IMPN ---
Progress Note: A&P Assessment and Plan (1) Urinary tract infection in male: Code(s): N39.0 - Urinary tract infection, site not specified Status: Acute Assessment and Plan: Urine culture positive for Pseudomonas - completed 7 days of imipenem on 11/03/2020 - Blood cultures negative (2) ANDRADE (acute kidney injury): Code(s): N17.9 - Acute kidney failure, unspecified Status: Acute Assessment and Plan: Increased up to 4.3 today -Unclear etiology at this time, although likely due to new medications spironolactone and entresto, urinary tract infection and now with diuresis -He was started on entresto recently 09/29/20 and spironolactone 10/22. both Entresto and spironolactone on hold -Renal US unremarkable. -He had a kidney biopsy 08/07/20 which showed acute tubular injury. -Oral bicarb discontinued today -Appreciate nephrology consultation (3) Anemia in CKD (chronic kidney disease): Code(s): N18.9 - Chronic kidney disease, unspecified; D63.1 - Anemia in chronic kidney disease Status: Acute Assessment and Plan: Hgb remaining stable - Transfused 2 units pRBC 11/02 with improvement following - Iron panel suggestive of ACD likely from CKD and other comorbid conditions - Also with positive occult blood in stool - Bone marrow biopsy July 2020 consistent with multiple myeloma however not requiring tx at this time. Discussed with oncologist Dr. Nowak. - Monitor CBC and transfuse prn - Continue PO iron supplementation - Received 20,000 units Epogen 11/02. F/u with Dr. Nowak in 2 weeks for repeat Epogen injection (4) Acute hyperkalemia: Code(s): E87.5 - Hyperkalemia Status: Resolved Assessment and Plan: Resolved. - Likely secondary to ANDRADE -Continue to hold spironolactone and Entresto -Continue Bumex (5) CHF (congestive heart failure): Qualifiers: Heart failure chronicity: acute on chronic Heart failure type: unspecified Qualified Code(s): I50.9 - Heart failure, unspecified Code(s): I50.9 - Heart failure, unspecified Status: Chronic Assessment and Plan: patient appears hypervolemic - CXR with cardiomegaly, congestion, likely pulmonary edema and now with complaints of scrotal edema - echo with reduced EF 30-35% - continue diuresis with IV bumex drip and metolazone managed per nephrology. Albumin discontinued. - monitor intake and output - continue with fluid restriction diet - appreciate cardiology input. Continue to hold entresto and spironolactone due to ANDRADE. Resume if/when appropriate (6) Occult blood in stools: Code(s): R19.5 - Other fecal abnormalities Status: Acute Assessment and Plan: Occult blood positive on 07/16/2020 and 11/02/2020 - he is asymptomatic with no melena or hematochezia - continue Protonix - he will need outpatient GI follow-up for EGD and possibly colonoscopy. Consider inpatient consult if H&H declines further (7) Chronic anticoagulation: Code(s): Z79.01 - half-way (current) use of anticoagulants Status: Acute Assessment and Plan: Pt has a mechanical aortic valve maintained on warfarin - INR has been supratherapeutic for most of admission, felt to be related to poor renal clearance - Warfarin had been held, resumed 11/05 - INR is subtherapeutic today at 2.2 - Will administer 4 mg warfarin this evening then continue with 3 mg daily once therapeutic (decreased from home dose as he is frequently supratherapeutic). - Check INR in the morning (8) Atrial fibrillation: Qualifiers: Atrial fibrillation type: unspecified Qualified Code(s): I48.91 - Unspecified atrial fibrillation Code(s): I48.91 - Unspecified atrial fibrillation Status: Chronic Assessment and Plan: Pt has a hx of this with no current issues. - Rate is controlled at this time - Continue metoprolol - Continue warfarin (9) Hypertension:
[2020-11-06] MEDS: PREGABALIN (*CRX) 75 MG CAPSULE PO ×2 (12:27→16:48)
[2020-11-06] MEDS: diphenhydrAMINE HCl CAP 25 MG CAPSULE PO (12:29)
[2020-11-06] MEDS: HYDROcodone/acetaminophen (*CRX) 5-325 MG TABLET 1 TAB PO ×2 (12:30→16:47)
--- NOTE | 2020-11-06 13:57 | P.PNNP_ITS ---
Progress Note: A&P Assessment and Plan (1) ANDRADE (acute kidney injury): Code(s): N17.9 - Acute kidney failure, unspecified Status: Acute Assessment and Plan: * ANDRADE * urine electrolytes non pre renal * urine eosinophils negative * ultrasound negative * UA shows blood and leukocytes. Urine culture showed Pseudomonas. * He is on imipenem. * his creatinine is up and down between 3 and 4. Today it is 4.3. * He is on a Bumex drip and metolazone. * Swelling seems a little better. Will continue this for another day or 2. (2) Chronic kidney disease, stage IV (severe): Code(s): N18.4 - Chronic kidney disease, stage 4 (severe) Status: Chronic Assessment and Plan: * baseline creatinine ~ 1.6 - 2.1mg/dl since January 2020 * he may have a new baseline. * due to CHF, diabetes, age, and vascular disease * renal biopsy in July of this year with ATN and arteriosclerosis (3) Urinary tract infection: Code(s): N39.0 - Urinary tract infection, site not specified Status: Acute Assessment and Plan: * urine culture with Pseudomonas * on antibiotics (4) Hyperkalemia: Code(s): E87.5 - Hyperkalemia Status: Acute Assessment and Plan: * resolved (5) Hypertension: Qualifiers: Hypertension type: unspecified Qualified Code(s): I10 - Essential (primary) hypertension Code(s): I10 - Essential (primary) hypertension Status: Chronic Assessment and Plan: * Blood pressure doing pretty well (6) A-fib: Code(s): I48.91 - Unspecified atrial fibrillation Status: Chronic Assessment and Plan: * rate control strategy * on coumadin (7) Edema: Code(s): R60.9 - Edema, unspecified Status: Acute Assessment and Plan: On Bumex drip, metolazone, and albumin. (8) Rash: Code(s): R21 - Rash and other nonspecific skin eruption Status: Acute Assessment and Plan: apparently chronic. symptomatic tx He still has significant eosinophilia. Subjective Date/time seen: 11/06/20 13:57 Interval history: patient is alert. his edema is a little better and his scrotum is better as well. He has depends on so it is difficult to know how much urine he is making. Exam Narrative: Exam Narrative: General: WD/WN male in NAD Heart: irregular rate and rhythm. no rub Lungs: clear Bilaterally Abdomen: BS+ nontender Extremities: no cyanosis or clubbing; 2+ edema Skin: chronic venous stasis dermatitis below his knees Objective Data Vital Signs Vital Signs: Vital Signs - 24 hr 11/05/20 14:56 11/05/20 20:15 11/05/20 21:20 Temperature 36.7 C Pulse Rate 82 98 76 Respiratory Rate 14 18 Blood Pressure 122/71 Pulse Oximetry 93 94 11/05/20 21:40 11/06/20 05:51 11/06/20 09:12 Temperature 37.1 C 37.0 C Pulse Rate 98 90 88 Respiratory Rate 18 18 Blood Pressure 141/68 H 140/75 Pulse Oximetry 94 90 Intake/Output Intake/Output: Intake & Output 11/03/20 11/04/20 11/05/20 11/06/20 23:59 23:59 23:59 23:59 Intake Total 2980 1130 1390 940 Output Total 900 1500 750 Balance 2080 -370 640 940 Meds/Results Medications:
--- NOTE | 2020-11-06 13:57 | PM.PNNEP ---
Progress Note: A&P Assessment and Plan (1) ANDRADE (acute kidney injury): Code(s): N17.9 - Acute kidney failure, unspecified Status: Acute Assessment and Plan: ANDRADE urine electrolytes non pre renal urine eosinophils negative ultrasound negative UA shows blood and leukocytes. Urine culture showed Pseudomonas. He is on imipenem. his creatinine is up and down between 3 and 4. Today it is 4.3. He is on a Bumex drip and metolazone. Swelling seems a little better. Will continue this for another day or 2. (2) Chronic kidney disease, stage IV (severe): Code(s): N18.4 - Chronic kidney disease, stage 4 (severe) Status: Chronic Assessment and Plan: baseline creatinine ~ 1.6 - 2.1mg/dl since January 2020 he may have a new baseline. due to CHF, diabetes, age, and vascular disease renal biopsy in July of this year with ATN and arteriosclerosis (3) Urinary tract infection: Code(s): N39.0 - Urinary tract infection, site not specified Status: Acute Assessment and Plan: urine culture with Pseudomonas on antibiotics (4) Hyperkalemia: Code(s): E87.5 - Hyperkalemia Status: Acute Assessment and Plan: resolved (5) Hypertension: Qualifiers: Hypertension type: unspecified Qualified Code(s): I10 - Essential (primary) hypertension Code(s): I10 - Essential (primary) hypertension Status: Chronic Assessment and Plan: Blood pressure doing pretty well (6) A-fib: Code(s): I48.91 - Unspecified atrial fibrillation Status: Chronic Assessment and Plan: rate control strategy on coumadin (7) Edema: Code(s): R60.9 - Edema, unspecified Status: Acute Assessment and Plan: On Bumex drip, metolazone, and albumin. (8) Rash: Code(s): R21 - Rash and other nonspecific skin eruption Status: Acute Assessment and Plan: apparently chronic. symptomatic tx He still has significant eosinophilia. Subjective Date/time seen: 11/06/20 13:57 Interval history: patient is alert. his edema is a little better and his scrotum is better as well. He has depends on so it is difficult to know how much urine he is making. Exam Narrative: Exam Narrative: General: WD/WN male in NAD Heart: irregular rate and rhythm. no rub Lungs: clear Bilaterally Abdomen: BS+ nontender Extremities: no cyanosis or clubbing; 2+ edema Skin: chronic venous stasis dermatitis below his knees Objective Data Vital Signs Vital Signs: Vital Signs - 24 hr 11/05/20 14:56 11/05/20 20:15 11/05/20 21:20 Temperature 36.7 C Pulse Rate 82 98 76 Respiratory Rate 14 18 Blood Pressure 122/71 Pulse Oximetry 93 94 11/05/20 21:40 11/06/20 05:51 11/06/20 09:12 Temperature 37.1 C 37.0 C Pulse Rate 98 90 88 Respiratory Rate 18 18 Blood Pressure 141/68 H 140/75 Pulse Oximetry 94 90 Intake/Output Intake/Output: Intake & Output 11/03/20 11/04/20 11/05/20 11/06/20 23:59 23:59 23:59 23:59 Intake Total 2980 1130 1390 940 Output Total 900 1500 750 Balance 2080 -370 640 940 Meds/Results Medications: Active Medications Generic Name Dose Route Start Last Admin Trade Name Freq PRN Reason Stop Dose Admin Hydrocodone Bitart/Acetaminophen 1 tab 11/02/20 08:42 11/06/20 12:30 Hydrocodone/Acetaminophen (*Crx) 5-325 Mg Tablet PO 1 tab Q4H PRN Administration Pain Rated 4-6 Ascorbic Acid 500 mg 10/26/20 17:00 11/06/20 09:11 Ascorbic Acid 500 Mg Tablet PO 500 mg BID MARY Administration Atorvastatin Calcium 40 mg 10/26/20 21:00 11/05/20 21:17 Atorvastatin 40 Mg Tablet PO 40 mg HS MARY Administration Bisacodyl 10 mg 10/26/20 14:11 Bisacodyl 10 Mg Suppository RECTAL DAILY PRN Constipation Dextrose 12.5 gm 10/26/20 13:49 Dextrose 50% 25 Gm/50 Ml Syringe IV PUSH PRN PRN Hy
[2020-11-06 14:00] VITALS: BP 124/66; PULSE 88; RESP 18; TEMP 36.4; O2SAT 94
--- NOTE | 2020-11-06 14:21 | PM.PNCARD ---
Progress Note: A&P Assessment and Plan (1) CHF (congestive heart failure): Qualifiers: Heart failure chronicity: acute on chronic Heart failure type: unspecified Qualified Code(s): I50.9 - Heart failure, unspecified Code(s): I50.9 - Heart failure, unspecified Status: Chronic Assessment and Plan: 74-year-old male with CAD, CHF /biventricular failure with reduced LVEF at 30-35% from 10/29/2019 echocardiogram; history of [employer] mechanical aortic valve replacement and CABG with unknown graft (in 1982 as per patient, op report not available); atrial fibrillation on chronic anticoagulation with warfarin; CKD, chronic anemia, multiple myeloma. [facility] with acute on chronic renal insufficiency, hyperkalemia. He has chronic biventricular failure, last EF 30 - 35% from 10/29/2019 echo, and currently has volume overload in the setting of CHF and renal insufficiency. - Continue IV bumetanide - diuresis being managed by Nephrology. - Sacubitril/valsartan, and spironolactone on hold for now due to Acute on chronic renal insufficiency. May resume Entresto when renal function stabilizes (cr 4.3 today) - Patient has not had regular cardiology follow-up. Patient is willing to follow up with us for longitudinal cardiac care after hospital discharge. (2) History of mechanical aortic valve replacement: Code(s): Z95.2 - Presence of prosthetic heart valve Status: Acute Assessment and Plan: History of remote mechanical aortic valve replacement with normal functioning valve from 10/29/2019 echo with a mean gradient of 5 mmHg. Continue anticoagulation with warfarin. INR is therapeutic. (3) Atrial fibrillation: Qualifiers: Atrial fibrillation type: unspecified Qualified Code(s): I48.91 - Unspecified atrial fibrillation Code(s): I48.91 - Unspecified atrial fibrillation Status: Chronic Assessment and Plan: Fairly rate controlled with low-dose metoprolol tartrate. Rate control plus anticoagulation. (4) Supratherapeutic INR: Code(s): R79.1 - Abnormal coagulation profile Status: Acute Assessment and Plan: Current INR is therapeutic. (5) Neuropathy: Code(s): G62.9 - Polyneuropathy, unspecified Status: Acute Assessment and Plan: management of other medical problems as per primary team including local wound care. Subjective Date/time seen: 11/06/20 14:21 cardiology follow-up for CHF, CAD date of service 11/06/2020: He is feeling well today. His lower extremity edema has essentially resolved. He denies any shortness of breath, chest pain, palpitations. He says that he got up and walked down the [place] with physical therapy today without any trouble. Review of Systems Review of Systems: All systems reviewed & are unremarkable except as noted in HPI and below Constitutional: Constitutional: Reports difficulty sleeping and Reports lethargy Eyes: Eyes: Denies change in vision ENT: Reports Normal hearing present and Denies tinnitus Cardiovascular: Cardiovascular: Reports pedal edema and Reports leg edema Respiratory: Respiratory: Reports cough, Denies dyspnea and Denies dyspnea on exertion Gastrointestinal: Gastrointestinal: Denies abdominal pain Genitourinary: Genitourinary: Denies dysuria and Reports urinary frequency Musculoskeletal: Musculoskeletal: Denies back pain and Denies myalgias Integumentary/Breasts: Skin/Breast: Denies unusual bruising Neurologic: Denies confusion Psychiatric: Psychiatric: Denies anxiety and Denies depression Endocrine: Endocrine: Denies palpitations Hematologic/Lymphatic: Hematologic/Lymphatic: Denies easy bleeding and Denies easy bruising Exam Const: General: comfortable and no acute distress HENMT: Head: normal to inspection Eyes: General: appearance normal, both eyes and all related structures Neck: Neck: supple and No no JVD Resp:
[2020-11-06] MEDS: WARFARIN (*PBKC) 3 MG TABLET PO (16:50)
[2020-11-06 17:04] LABS: Glucose Point of Care 137 mg/dl (65-105)
[2020-11-06] MEDS: WARFARIN (*PBKC) 1 MG TABLET PO (18:27)
[2020-11-06 20:10] VITALS: PULSE 85; RESP 16; O2SAT 92
[2020-11-06] MEDS: traZODone HCL 25 MG TABLET PO (21:29)
[2020-11-06] MEDS: ATORVASTATIN 40 MG TABLET PO (21:29)
[2020-11-06 21:30] VITALS: PULSE 82
[2020-11-06] MEDS: SENNOSIDES 8.6 MG TABLET 17.2 MG PO (21:33)
[2020-11-06] MEDS: MELATONIN 3 MG TABLET 6 MG PO (21:34)
[2020-11-06 21:59] VITALS: BP 135/67; PULSE 85; RESP 16; TEMP 37; O2SAT 92
[2020-11-06 22:10] LABS: Glucose Point of Care 189 mg/dl (65-105)
[2020-11-07] MEDS: guaiFENesin/DEXTROMETHORPHAN 10 ML UDC 5 ML PO ×3 (05:59→22:13)
[2020-11-07 06:00] VITALS: BP 138/64; PULSE 82; RESP 18; TEMP 37.1; O2SAT 94
[2020-11-07 06:37] LABS: Basophils Percent Auto 0.4 % (0.2-1.2); Eosinophils Absolute Auto 2.1 K/mm3 (0-0.3); Eosinophils Percent Auto 26.4 % (0-4.4); Hematocrit 29.3 % (42.0-52.0); Hemoglobin 9.3 g/dL (14.0-18.0); Immature Granulocyte Absolute 0.04 K/mm3 (0.00-0.031); Immature Granulocyte Percent A 0.5 % (0-0.5); Lymphocytes Absolute Auto 0.51 K/mm3 (0.9-3.2); Lymphocytes Percent Auto 6.3 % (18.3-44.2); Mean Corpuscular HGB Conc 31.7 g/dl (32-36); Mean Corpuscular Hemoglobin 27.6 pg (26-34); Mean Corpuscular Volume 86.9 fl (80-100); Mean Platelet Volume 11.6 fl (7.4-10.4); Monocytes Absolute Auto 0.9 K/mm3 (0.1-0.6); Monocytes Percent Auto 11.1 % (2.6-8.5); Neutrophils Absolute Auto 4.5 K/mm3 (1.3-6.7); Neutrophils Percent Auto 55.3 % (45.5-73.1); Platelet Count Result 118 k/mm3 (150-375); Red Blood Count 3.37 M/mm3 (4.6-6.20); Red Cell Distribution Width 17.7 % (11.5-14.5); White Blood Count 8.1 K/mm3 (4.5-10.0)
[2020-11-07 06:50] LABS: Albumin Level 4.1 g/dL (3.5-5.1); Anion Gap 15 mmol/L (8-16); Blood Urea Nitrogen 53 mg/dL (9-20); Calcium 9.5 mg/dL (8.4-10.2); Carbon Dioxide 27 mmol/L (22-30); Chloride 99 mmol/L (98-107); Estimated CRCL calculation 15 ml/min; Estimated Glomerular Filt Rate 13; Glucose 116 mg/dL (65-110); Phosphorus 6.8 mg/dL (2.5-4.5); Potassium 3.9 mmol/L (3.4-5.0); Sodium 141 mmol/L (137-145)
[2020-11-07 06:53] LABS: INR 2.1; Prothrombin Time 23.2 Seconds (11.1-14.7)
[2020-11-07 08:39] LABS: Glucose Point of Care 109 mg/dl (65-105)
[2020-11-07] MEDS: LACTIC ACID 12% LOTION 225 BTL 1 APPLIC TOPICAL (09:00)
--- NOTE | 2020-11-07 09:36 | PM.PNCARD ---
Progress Note: A&P Assessment and Plan (1) CHF (congestive heart failure): Qualifiers: Heart failure chronicity: acute on chronic Heart failure type: unspecified Qualified Code(s): I50.9 - Heart failure, unspecified Code(s): I50.9 - Heart failure, unspecified Status: Chronic Assessment and Plan: 74-year-old male with CAD, CHF /biventricular failure with reduced LVEF at 30-35% from 10/29/2019 echocardiogram; history of [facility] mechanical aortic valve replacement and CABG with unknown graft (in 1982 as per patient, op report not available); atrial fibrillation on chronic anticoagulation with warfarin; CKD, chronic anemia, multiple myeloma. Patient admitted from long-term with acute on chronic renal insufficiency, hyperkalemia. He has chronic biventricular failure, last EF 30 - 35% from 10/29/2019 echo, and currently has volume overload in the setting of CHF and renal insufficiency. - Sacubitril/valsartan, and spironolactone on hold for now due to Acute on chronic renal insufficiency. May resume Entresto if/when renal function stabilizes - Bumex and albumin have been discontinued by Nephrology. The plan is for him to be initiated on hemodialysis. Will need dialysis access. He is currently anticoagulated with heparin drip to bridge him. Discussed this plan with Dr. Westbrook. (2) History of mechanical aortic valve replacement: Code(s): Z95.2 - Presence of prosthetic heart valve Status: Acute Assessment and Plan: History of remote mechanical aortic valve replacement with normal functioning valve from 10/29/2019 echo with a mean gradient of 5 mmHg. Hold coumadin in anticipation of HD catheter placement - bridge with heparin (3) Atrial fibrillation: Qualifiers: Atrial fibrillation type: unspecified Qualified Code(s): I48.91 - Unspecified atrial fibrillation Code(s): I48.91 - Unspecified atrial fibrillation Status: Chronic Assessment and Plan: Fairly rate controlled with low-dose metoprolol tartrate. Rate control plus anticoagulation, now with heparin drip. (4) Supratherapeutic INR: Code(s): R79.1 - Abnormal coagulation profile Status: Acute Assessment and Plan: See above re: A/C (5) Neuropathy: Code(s): G62.9 - Polyneuropathy, unspecified Status: Acute Assessment and Plan: management of other medical problems as per primary team including local wound care. Subjective Date/time seen: 11/07/20 09:36 Interval history: Date of service: 11/08/2020 Review of Systems Review of Systems: All systems reviewed & are unremarkable except as noted in HPI and below Constitutional: Constitutional: Reports difficulty sleeping and Reports lethargy Eyes: Eyes: Denies change in vision ENT: Reports Normal hearing present and Denies tinnitus Cardiovascular: Cardiovascular: Reports pedal edema, Reports leg edema, Denies palpitations, Denies dyspnea and Denies dyspnea on exertion Respiratory: Respiratory: Reports cough, Denies dyspnea and Denies dyspnea on exertion Gastrointestinal: Gastrointestinal: Denies abdominal pain Genitourinary: Genitourinary: Denies dysuria and Reports urinary frequency Musculoskeletal: Musculoskeletal: Denies back pain and Denies myalgias Integumentary/Breasts: Skin/Breast: Denies unusual bruising Neurologic: Reports Normal hearing present and Denies confusion Psychiatric: Psychiatric: Denies anxiety, Denies confusion and Denies depression Endocrine: Endocrine: Denies palpitations Hematologic/Lymphatic: Hematologic/Lymphatic: Denies easy bleeding and Denies easy bruising Exam Const: General: comfortable and no acute distress; No confusion Orientation/consciousness: No confusion HENMT: Head: normal to inspection Mouth: Yes moist mucous membranes Eyes: General: appearance normal, both eyes and all related structures Sclera: sclerae normal Pupils: Equal, round an
[2020-11-07] MEDS: TAMSULOSIN HCL 0.4 MG CAPSULE PO (09:54)
[2020-11-07] MEDS: FINASTERIDE 5 MG TABLET PO (09:54)
[2020-11-07] MEDS: MAGNESIUM OXIDE 200 MG TABLET PO ×2 (09:54→22:14)
[2020-11-07] MEDS: PANTOPRAZOLE 40 MG TABLET PO (09:54)
[2020-11-07] MEDS: FERROUS SULFATE 324 MG TABLET PO (09:54)
[2020-11-07] MEDS: metOLazone 5 MG TABLET PO (09:54)
[2020-11-07] MEDS: ASCORBIC ACID 500 MG TABLET PO ×2 (09:54→18:07)
[2020-11-07] MEDS: PREGABALIN (*CRX) 75 MG CAPSULE PO ×2 (09:54→18:07)
[2020-11-07 09:55] VITALS: PULSE 80
[2020-11-07] MEDS: DULoxetine HCL 30 MG CAPSULE.DR PO (09:55)
[2020-11-07] MEDS: METOPROLOL TARTRATE 12.5 MG TABLET PO ×2 (09:55→22:14)
--- NOTE | 2020-11-07 11:48 | P.CDI_ITS ---
CDI Query Clarification Request -CHF acute on chronic has been documented - patient appears hypervolemic, CXR with cardiomegaly, congestion, likely pulmonary edema echo with reduced EF 30-35% has been documented - CHF /biventricular failure with reduced LVEF at 30-35% from 10/29/2019 echo has been documented -Pt currently on Bumetanide drip Please further specify type of CHF: * Systolic * Diastolic * Both systolic and diastolic * Unable to determine
[2020-11-07 12:09] LABS: Glucose Point of Care 213 mg/dl (65-105)
[2020-11-07 14:00] VITALS: BP 104/59; PULSE 80; RESP 18; TEMP 36.7; O2SAT 95
--- NOTE | 2020-11-07 15:10 | PM.IMPN ---
Progress Note: A&P Assessment and Plan (1) Urinary tract infection in male: Code(s): N39.0 - Urinary tract infection, site not specified Status: Acute Assessment and Plan: Urine culture positive for Pseudomonas - completed 7 days of imipenem on 11/03/2020 - Blood cultures negative (2) ANDRADE (acute kidney injury): Code(s): N17.9 - Acute kidney failure, unspecified Status: Acute Assessment and Plan: Increased up to 4.[address] Westbrook, this may be related to the IV bumex which is discontinued - transition to oral bumex tomorrow. -Unclear etiology at this time, although may be related to new medications spironolactone and entresto, urinary tract infection and now with diuresis -He was started on entresto recently 09/29/20 and spironolactone 10/22. Both Entresto and spironolactone on hold -Renal US unremarkable. -He had a kidney biopsy 08/07/20 which showed acute tubular injury. -Oral bicarb discontinued -Appreciate nephrology input (3) Anemia in CKD (chronic kidney disease): Code(s): N18.9 - Chronic kidney disease, unspecified; D63.1 - Anemia in chronic kidney disease Status: Acute Assessment and Plan: Hgb remaining stable - Transfused 2 units pRBC 11/02 with improvement following - Iron panel suggestive of ACD likely from CKD and other comorbid conditions - Also with positive occult blood in stool - Bone marrow biopsy July 2020 consistent with multiple myeloma however not requiring tx at this time. Previous provider discussed with oncologist Dr. Nowak. - Monitor CBC and transfuse prn - Continue PO iron supplementation - Received 20,000 units Epogen 11/02. F/u with Dr. Nowak in 2 weeks for repeat Epogen injection (4) CHF (congestive heart failure): Qualifiers: Heart failure chronicity: acute on chronic Heart failure type: unspecified Qualified Code(s): I50.9 - Heart failure, unspecified Code(s): I50.9 - Heart failure, unspecified Status: Chronic Assessment and Plan: patient appears hypervolemic - CXR with cardiomegaly, congestion, likely pulmonary edema and now with complaints of scrotal edema - echo with reduced EF 30-35% - continue diuresis with IV bumex drip and metolazone managed per nephrology. Albumin discontinued. - monitor intake and output - continue with fluid restriction diet - appreciate cardiology input. Continue to hold entresto and spironolactone due to ANDRADE. Resume if/when appropriate (5) Occult blood in stools: Code(s): R19.5 - Other fecal abnormalities Status: Acute Assessment and Plan: Occult blood positive on 07/16/2020 and 11/02/2020 - he is asymptomatic with no melena or hematochezia - continue Protonix - he will need outpatient GI follow-up for EGD and possibly colonoscopy. Consider inpatient consult if H&H declines further (6) Chronic anticoagulation: Code(s): Z79.01 - residential (current) use of anticoagulants Status: Acute Assessment and Plan: Pt has a mechanical aortic valve maintained on warfarin - INR has been supratherapeutic for most of admission, felt to be related to poor renal clearance - Warfarin had been held, resumed 11/05 - INR is subtherapeutic today at 2.1 - Will administer 4 mg warfarin again this evening then continue with 3 mg daily once therapeutic (decreased from home dose as he is frequently supratherapeutic). - Check INR daily while here (7) Atrial fibrillation: Qualifiers: Atrial fibrillation type: unspecified Qualified Code(s): I48.91 - Unspecified atrial fibrillation Code(s): I48.91 - Unspecified atrial fibrillation Status: Chronic Assessment and Plan: Pt has a hx of this with no current issues. - Rate is controlled at this time - Continue metoprolol - Continue warfarin (8) Hypertension: Qualifiers: Hypertension type: unspecified Qualified Code(s): I10
[2020-11-07] MEDS: INSULIN ASPART (*BKC) 100 UNITS/ML SUB-Q (15:13)
--- NOTE | 2020-11-07 16:03 | P.PNNP_ITS ---
Progress Note: A&P Assessment and Plan (1) ANDRADE (acute kidney injury): Code(s): N17.9 - Acute kidney failure, unspecified Status: Acute Assessment and Plan: * ANDRADE * urine electrolytes non pre renal * urine eosinophils negative * ultrasound negative * UA shows blood and leukocytes. Urine culture showed Pseudomonas. * He is on imipenem. * his creatinine has risen over the last few days because of the Bumex drip. * Will switch to oral Bumex now. * If swelling worsens again we may need to do dialysis. (2) Chronic kidney disease, stage IV (severe): Code(s): N18.4 - Chronic kidney disease, stage 4 (severe) Status: Chronic Assessment and Plan: * baseline creatinine ~ 1.6 - 2.1mg/dl since January 2020 * he may have a new baseline. * due to CHF, diabetes, age, and vascular disease * renal biopsy in July of this year with ATN and arteriosclerosis (3) Urinary tract infection: Code(s): N39.0 - Urinary tract infection, site not specified Status: Acute Assessment and Plan: * urine culture with Pseudomonas * on antibiotics (4) Hyperkalemia: Code(s): E87.5 - Hyperkalemia Status: Acute Assessment and Plan: * resolved (5) Hypertension: Qualifiers: Hypertension type: unspecified Qualified Code(s): I10 - Essential (primary) hypertension Code(s): I10 - Essential (primary) hypertension Status: Chronic Assessment and Plan: * Blood pressure doing pretty well (6) A-fib: Code(s): I48.91 - Unspecified atrial fibrillation Status: Chronic Assessment and Plan: * rate control strategy * on coumadin (7) Edema: Code(s): R60.9 - Edema, unspecified Status: Acute Assessment and Plan: On Bumex metolazone, and albumin. DC the latter. (8) Rash: Code(s): R21 - Rash and other nonspecific skin eruption Status: Acute Assessment and Plan: apparently chronic. symptomatic tx He still has significant eosinophilia. Subjective Date/time seen: 11/07/20 16:03 Interval history: patient is alert. his edema is a little better and his scrotum is better as well. he is eating well. No nausea. Exam Narrative: Exam Narrative: General: WD/WN male in NAD Heart: irregular rate and rhythm. no rub Lungs: clear to auscultation Abdomen: BS+ nontender Extremities: no cyanosis or clubbing; 2+ edema Skin: chronic venous stasis dermatitis below his knees Objective Data Vital Signs Vital Signs: Vital Signs - 24 hr 11/06/20 20:10 11/06/20 21:30 11/06/20 21:59 Temperature 37.0 C Pulse Rate 85 82 85 Respiratory Rate 16 16 Blood Pressure 135/67 Pulse Oximetry 92 92 11/07/20 06:00 11/07/20 09:55 11/07/20 14:00 Temperature 37.1 C 36.7 C Pulse Rate 82 80 80 Respiratory Rate 18 18 Blood Pressure 138/64 104/59 L Pulse Oximetry 94 95 Intake/Output Intake/Output: Intake & Output 11/04/20 11/05/20 11/06/20 11/07/20 23:59 23:59 23:59 23:59 Intake Total 1130 1390 1420 890 Output Total 1500 868 724 5095 Balance -370 640 920 -710 Meds/Results Medications: Active Medications
--- NOTE | 2020-11-07 16:03 | PM.PNNEP ---
Progress Note: A&P Assessment and Plan (1) ANDRADE (acute kidney injury): Code(s): N17.9 - Acute kidney failure, unspecified Status: Acute Assessment and Plan: ANDRADE urine electrolytes non pre renal urine eosinophils negative ultrasound negative UA shows blood and leukocytes. Urine culture showed Pseudomonas. He is on imipenem. his creatinine has risen over the last few days because of the Bumex drip. Will switch to oral Bumex now. If swelling worsens again we may need to do dialysis. (2) Chronic kidney disease, stage IV (severe): Code(s): N18.4 - Chronic kidney disease, stage 4 (severe) Status: Chronic Assessment and Plan: baseline creatinine ~ 1.6 - 2.1mg/dl since January 2020 he may have a new baseline. due to CHF, diabetes, age, and vascular disease renal biopsy in July of this year with ATN and arteriosclerosis (3) Urinary tract infection: Code(s): N39.0 - Urinary tract infection, site not specified Status: Acute Assessment and Plan: urine culture with Pseudomonas on antibiotics (4) Hyperkalemia: Code(s): E87.5 - Hyperkalemia Status: Acute Assessment and Plan: resolved (5) Hypertension: Qualifiers: Hypertension type: unspecified Qualified Code(s): I10 - Essential (primary) hypertension Code(s): I10 - Essential (primary) hypertension Status: Chronic Assessment and Plan: Blood pressure doing pretty well (6) A-fib: Code(s): I48.91 - Unspecified atrial fibrillation Status: Chronic Assessment and Plan: rate control strategy on coumadin (7) Edema: Code(s): R60.9 - Edema, unspecified Status: Acute Assessment and Plan: On Bumex metolazone, and albumin. DC the latter. (8) Rash: Code(s): R21 - Rash and other nonspecific skin eruption Status: Acute Assessment and Plan: apparently chronic. symptomatic tx He still has significant eosinophilia. Subjective Date/time seen: 11/07/20 16:03 Interval history: patient is alert. his edema is a little better and his scrotum is better as well. he is eating well. No nausea. Exam Narrative: Exam Narrative: General: WD/WN male in NAD Heart: irregular rate and rhythm. no rub Lungs: clear to auscultation Abdomen: BS+ nontender Extremities: no cyanosis or clubbing; 2+ edema Skin: chronic venous stasis dermatitis below his knees Objective Data Vital Signs Vital Signs: Vital Signs - 24 hr 11/06/20 20:10 11/06/20 21:30 11/06/20 21:59 Temperature 37.0 C Pulse Rate 85 82 85 Respiratory Rate 16 16 Blood Pressure 135/67 Pulse Oximetry 92 92 11/07/20 06:00 11/07/20 09:55 11/07/20 14:00 Temperature 37.1 C 36.7 C Pulse Rate 82 80 80 Respiratory Rate 18 18 Blood Pressure 138/64 104/59 L Pulse Oximetry 94 95 Intake/Output Intake/Output: Intake & Output 11/04/20 11/05/20 11/06/20 11/07/20 23:59 23:59 23:59 23:59 Intake Total 1130 1390 1420 890 Output Total 1500 220 618 9114 Balance -370 640 920 -710 Meds/Results Medications: Active Medications Generic Name Dose Route Start Last Admin Trade Name Freq PRN Reason Stop Dose Admin Hydrocodone Bitart/Acetaminophen 1 tab 11/02/20 08:42 11/06/20 16:47 Hydrocodone/Acetaminophen (*Crx) 5-325 Mg Tablet PO 1 tab Q4H PRN Administration Pain Rated 4-6 Ascorbic Acid 500 mg 10/26/20 17:00 11/07/20 09:54 Ascorbic Acid 500 Mg Tablet PO 500 mg BID MARY Administration Atorvastatin Calcium 40 mg 10/26/20 21:00 11/06/20 21:29 Atorvastatin 40 Mg Tablet PO 40 mg HS MARY Administration Bisacodyl 10 mg 10/26/20 14:11 Bisacodyl 10 Mg Suppository RECTAL DAILY PRN Constipation Dextrose 12.5 gm 10/26/20 13:49 Dextrose 50% 25 Gm/50 Ml Syringe IV PUSH PRN PRN Hypoglycemia Protocol Diphenhydramine
[2020-11-07 17:08] LABS: Glucose Point of Care 78 mg/dl (65-105)
[2020-11-07] MEDS: WARFARIN (*PBKC) 3 MG TABLET PO (18:08)
[2020-11-07] MEDS: WARFARIN (*PBKC) 1 MG TABLET PO (18:09)
[2020-11-07 20:10] VITALS: PULSE 78; RESP 20; O2SAT 97
[2020-11-07 22:00] VITALS: BP 124/50; PULSE 95; RESP 20; TEMP 36.9; O2SAT 97
[2020-11-07 22:14] VITALS: PULSE 78
[2020-11-07] MEDS: ATORVASTATIN 40 MG TABLET PO (22:14)
[2020-11-07] MEDS: traZODone HCL 25 MG TABLET PO (22:15)
[2020-11-07] MEDS: SENNOSIDES 8.6 MG TABLET 17.2 MG PO (22:15)
[2020-11-07] MEDS: MELATONIN 3 MG TABLET 6 MG PO (22:18)
[2020-11-08 00:52] LABS: Glucose Point of Care 147 mg/dl (65-105)
[2020-11-08 06:00] VITALS: BP 107/58; PULSE 87; RESP 18; TEMP 36.8; O2SAT 91
[2020-11-08 06:40] LABS: Hematocrit 27.3 % (42.0-52.0); Hemoglobin 8.8 g/dL (14.0-18.0); Mean Corpuscular HGB Conc 32.2 g/dl (32-36); Mean Corpuscular Hemoglobin 27.4 pg (26-34); Mean Platelet Volume 11.4 fl (7.4-10.4); Platelet Count Result 120 k/mm3 (150-375); Red Blood Count 3.21 M/mm3 (4.6-6.20); Red Cell Distribution Width 17.6 % (11.5-14.5); White Blood Count 7.5 K/mm3 (4.5-10.0)
[2020-11-08 06:52] LABS: INR 2.5; Prothrombin Time 26.4 Seconds (11.1-14.7)
[2020-11-08 06:59] LABS: Albumin Level 3.9 g/dL (3.5-5.1); Anion Gap 18 mmol/L (8-16); Blood Urea Nitrogen 69 mg/dL (9-20); Calcium 8.9 mg/dL (8.4-10.2); Carbon Dioxide 24 mmol/L (22-30); Chloride 97 mmol/L (98-107); Estimated CRCL calculation 14 ml/min; Estimated Glomerular Filt Rate 12; Glucose 106 mg/dL (65-110); Magnesium 1.5 mg/dL (1.6-2.3); Phosphorus 7.8 mg/dL (2.5-4.5); Potassium 4.3 mmol/L (3.4-5.0); Sodium 139 mmol/L (137-145)
[2020-11-08 07:40] LABS: Glucose Point of Care 124 mg/dl (65-105)
[2020-11-08] MEDS: guaiFENesin/DEXTROMETHORPHAN 10 ML UDC 5 ML PO ×2 (09:31→17:48)
[2020-11-08] MEDS: BUMETANIDE 1 MG TABLET 2 MG PO (09:32)
[2020-11-08] MEDS: TAMSULOSIN HCL 0.4 MG CAPSULE PO (09:32)
[2020-11-08] MEDS: PANTOPRAZOLE 40 MG TABLET PO (09:32)
[2020-11-08] MEDS: DULoxetine HCL 30 MG CAPSULE.DR PO (09:32)
[2020-11-08 09:33] VITALS: PULSE 84
[2020-11-08] MEDS: METOPROLOL TARTRATE 12.5 MG TABLET PO ×2 (09:33→21:49)
[2020-11-08] MEDS: FERROUS SULFATE 324 MG TABLET PO (09:33)
[2020-11-08] MEDS: ASCORBIC ACID 500 MG TABLET PO ×2 (09:33→17:48)
[2020-11-08] MEDS: metOLazone 5 MG TABLET PO (09:33)
[2020-11-08] MEDS: FINASTERIDE 5 MG TABLET PO (09:33)
[2020-11-08] MEDS: MAGNESIUM SULF 2 GM/WATER 50ML 2 GM/50 ML BAG IVPB (09:35)
--- NOTE | 2020-11-08 11:25 | PM.PNNEP ---
Progress Note: A&P Assessment and Plan (1) ANDRADE (acute kidney injury): Code(s): N17.9 - Acute kidney failure, unspecified Status: Acute Assessment and Plan: ANDRADE urine electrolytes non pre renal urine eosinophils negative ultrasound negative UA shows blood and leukocytes. Urine culture showed Pseudomonas. He is on imipenem. Bumex drip discontinued yesterday and his creatinine went up anyway today. Long discussion with the patient. If we cut back on the diuretics he is just going to swell again. He still has a significant amount of edema now with skin changes and risk of cellulitis. No forward to cut back on the diuretics these risks would be even higher. If we will continue diuretics his creatinine will continue to worsen. I think the best option here is to start hemodialysis. We will be able to remove the fluid and remove the kidney poisons at the same time. Considering the biopsy results this will probably be a long-term issue But there is a chance of recovery. Possibly if the legs get better and all the wounds heal up he might recover some kidney function. We discussed the risks benefits alternatives and process of dialysis and he agrees to proceed (2) Chronic kidney disease, stage IV (severe): Code(s): N18.4 - Chronic kidney disease, stage 4 (severe) Status: Chronic Assessment and Plan: baseline creatinine ~ 1.6 - 2.1mg/dl since January 2020 he may have a new baseline. due to CHF, diabetes, age, and vascular disease renal biopsy in July of this year with ATN and arteriosclerosis (3) Urinary tract infection: Code(s): N39.0 - Urinary tract infection, site not specified Status: Acute Assessment and Plan: urine culture with Pseudomonas on antibiotics (4) Hyperkalemia: Code(s): E87.5 - Hyperkalemia Status: Acute Assessment and Plan: resolved (5) Hypertension: Qualifiers: Hypertension type: unspecified Qualified Code(s): I10 - Essential (primary) hypertension Code(s): I10 - Essential (primary) hypertension Status: Chronic Assessment and Plan: Blood pressure doing pretty well (6) A-fib: Code(s): I48.91 - Unspecified atrial fibrillation Status: Chronic Assessment and Plan: rate control strategy on coumadin (7) Edema: Code(s): R60.9 - Edema, unspecified Status: Acute Assessment and Plan: On Bumex metolazone, and albumin. DC the latter. (8) Rash: Code(s): R21 - Rash and other nonspecific skin eruption Status: Acute Assessment and Plan: apparently chronic. symptomatic tx He still has significant eosinophilia. Subjective Date/time seen: 11/08/20 11:25 Interval history: patient is alert. his edema is about the same. Still has chronic venous stasis changes. Exam Narrative: Exam Narrative: General: WD/WN male in NAD Heart: irregular rate and rhythm. no rub Lungs: clear to auscultation Abdomen: BS+ nontender Extremities: no cyanosis or clubbing; 2+ edema Skin: chronic venous stasis dermatitis below his knees Objective Data Vital Signs Vital Signs: Vital Signs - 24 hr 11/07/20 14:00 11/07/20 20:10 11/07/20 22:00 Temperature 36.7 C 36.9 C Pulse Rate 80 78 95 Respiratory Rate 18 20 20 Blood Pressure 104/59 L 124/50 L Pulse Oximetry 95 97 97 11/07/20 22:14 11/08/20 06:00 11/08/20 09:33 Temperature 36.8 C Pulse Rate 78 87 84 Respiratory Rate 18 Blood Pressure 107/58 L Pulse Oximetry 91 Intake/Output Intake/Output: Intake & Output 11/05/20 11/06/20 11/07/20 11/08/20 23:59 23:59 23:59 23:59 Intake Total 1390 1420 1010 740 Output Total 814 128 6955 1000 Balance 640 927 -594 -697 Meds/Results Medications: Active Medications Generic Name Dose Route Start Last Admin Trade Name Freq PRN Reason Stop Dose Admin Hydrocodone
[2020-11-08 11:49] LABS: Glucose Point of Care 246 mg/dl (65-105)
[2020-11-08] MEDS: INSULIN ASPART (*BKC) 100 UNITS/ML SUB-Q (12:12)
[2020-11-08] MEDS: LACTIC ACID 12% LOTION 225 BTL 1 APPLIC TOPICAL (12:13)
[2020-11-08] MEDS: PREGABALIN (*CRX) 75 MG CAPSULE PO ×2 (12:13→17:52)
[2020-11-08 13:26] LABS: Hepatitis B Surface Antigen Negative (Negative)
[2020-11-08 14:00] VITALS: BP 102/55; PULSE 83; RESP 20; TEMP 37; O2SAT 100
--- NOTE | 2020-11-08 15:05 | PM.IMPN ---
Progress Note: A&P Assessment and Plan (1) ANDRADE (acute kidney injury): Code(s): N17.9 - Acute kidney failure, unspecified Status: Acute Assessment and Plan: Increased up to 4.7 today. 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 -He had a kidney biopsy 08/07/20 which showed acute tubular injury. -Oral bicarb discontinued -Appreciate nephrology input (2) Anemia in CKD (chronic kidney disease): Code(s): N18.9 - Chronic kidney disease, unspecified; D63.1 - Anemia in chronic kidney disease Status: Acute Assessment and Plan: Hgb remaining stable - Transfused 2 units pRBC 11/02 with improvement following - Iron panel suggestive of ACD likely from CKD and other comorbid conditions - Also with positive occult blood in stool - Bone marrow biopsy July 2020 consistent with multiple myeloma however not requiring tx at this time. Discussed with oncologist Dr. Nowak. - Monitor CBC and transfuse prn - Continue PO iron supplementation - Received 20,000 units Epogen 11/02. F/u with Dr. Nowak in 2 weeks for repeat Epogen injection (3) CHF (congestive heart failure): Qualifiers: Heart failure chronicity: acute on chronic Heart failure type: unspecified Qualified Code(s): I50.9 - Heart failure, unspecified Code(s): I50.9 - Heart failure, unspecified Status: Chronic Assessment and Plan: volume status seems to be slowly improving - CXR with cardiomegaly, congestion, likely pulmonary edema and now with complaints of scrotal edema - echo with reduced EF 30-35% - continue p.o. Bumex. - monitor intake and output - continue with fluid restriction diet - appreciate cardiology input. Continue to hold entresto and spironolactone due to NADRADE. Resume if/when appropriate (4) Urinary tract infection in male: Code(s): N39.0 - Urinary tract infection, site not specified Status: Acute Assessment and Plan: Urine culture positive for Pseudomonas - completed 7 days of imipenem on 11/03/2020 - Blood cultures negative (5) Occult blood in stools: Code(s): R19.5 - Other fecal abnormalities Status: Acute Assessment and Plan: Occult blood positive on 07/16/2020 and 11/02/2020 - he is asymptomatic with no melena or hematochezia - continue Protonix - he will need outpatient GI follow-up for EGD and possibly colonoscopy. Consider inpatient consult if decline in H&H (6) Chronic anticoagulation: Code(s): Z79.01 - [place] (current) use of anticoagulants Status: Acute Assessment and Plan: Pt has a mechanical aortic valve maintained on warfarin - INR 2.5 today - Continue with warfarin 3 mg daily - INR had been supratherapeutic for most of admission, felt to be related to poor renal clearance - Check INR daild (7) Atrial fibrillation: Qualifiers: Atrial fibrillation type: unspecified Qualified Code(s): I48.91 - Unspecified atrial fibrillation Code(s): I48.91 - Unspecified atrial fibrillation Status: Chronic Assessment and Plan: Pt has a hx of this with no current issues. - Rate is controlled at this time - Continue metoprolol - Continue warfarin (8) Hypertension: Qualifiers: Hypertension type: unspecified Qualified Code(s): I10 - Essential (primary) hypertension Code(s): I10 - Essential (primary) hypertension Status: Chronic Assessment and Plan: Last BP 102/55 - Continue with metoprolol - Entresto and spironolactone on hold (9) BPH (benign prostatic hyperplasia): Qualifiers: Lower urinary tract symptom presence: unspecified whether lower urinary tract symptoms present Qualified Code(s): N40.0 -
--- NOTE | 2020-11-08 17:06 | PM.PNCARD ---
Progress Note: A&P Assessment and Plan (1) CHF (congestive heart failure): Qualifiers: Heart failure chronicity: acute on chronic Heart failure type: unspecified Qualified Code(s): I50.9 - Heart failure, unspecified Code(s): I50.9 - Heart failure, unspecified Status: Chronic Assessment and Plan: 74-year-old male with CAD, CHF /biventricular failure with reduced LVEF at 30-35% from 10/29/2019 echocardiogram; history of [employer] mechanical aortic valve replacement and CABG with unknown graft (in 1982 as per patient, op report not available); atrial fibrillation on chronic anticoagulation with warfarin; CKD, chronic anemia, multiple myeloma. patient admitted from [facility] with acute on chronic renal insufficiency, hyperkalemia. He has chronic biventricular failure, last EF 30 - 35% from 10/29/2019 echo, and currently has volume overload in the setting of CHF and renal insufficiency. - Bumex and albumin have been discontinued by Nephrology. The plan is for him to be initiated on hemodialysis. Will need dialysis access. He is currently anticoagulated with warfarin for atrial fibrillation and mechanical mitral valve. Will stop his warfarin and initiate a heparin drip to bridge him. Discussed this plan with Dr. Westbrook. - Sacubitril/valsartan, and spironolactone on hold for now due to Acute on chronic renal insufficiency. May resume Entresto if/when renal function stabilizes - Patient has not had regular cardiology follow-up. Patient is willing to follow up with us for longitudinal cardiac care after hospital discharge. (2) History of mechanical aortic valve replacement: Code(s): Z95.2 - Presence of prosthetic heart valve Status: Acute Assessment and Plan: History of remote mechanical aortic valve replacement with normal functioning valve from 10/29/2019 echo with a mean gradient of 5 mmHg. Hold Coumadin in anticipation of dialysis catheter placement (3) Atrial fibrillation: Qualifiers: Atrial fibrillation type: unspecified Qualified Code(s): I48.91 - Unspecified atrial fibrillation Code(s): I48.91 - Unspecified atrial fibrillation Status: Chronic Assessment and Plan: Fairly rate controlled with low-dose metoprolol tartrate. Rate control plus anticoagulation, now with heparin drip. (4) Supratherapeutic INR: Code(s): R79.1 - Abnormal coagulation profile Status: Acute Assessment and Plan: See above re: A/C (5) Neuropathy: Code(s): G62.9 - Polyneuropathy, unspecified Status: Acute Assessment and Plan: management of other medical problems as per primary team including local wound care. Subjective Date/time seen: 11/08/20 17:06 Interval history: Date of service: 11/08/2020: He feels well today. He is denying complaints of any kind. I reviewed the plan that he is to be initiated on hemodialysis. I discussed with him that his warfarin would need to be held and he will be transitioned to a heparin drip in preparation for line placement. Review of Systems Review of Systems: All systems reviewed & are unremarkable except as noted in HPI and below Constitutional: Constitutional: Reports difficulty sleeping and Reports lethargy Eyes: Eyes: Denies change in vision ENT: Reports Normal hearing present and Denies tinnitus Cardiovascular: Cardiovascular: Reports pedal edema, Reports leg edema, Denies palpitations, Denies dyspnea and Denies dyspnea on exertion Respiratory: Respiratory: Reports cough, Denies dyspnea and Denies dyspnea on exertion Gastrointestinal: Gastrointestinal: Denies abdominal pain Genitourinary: Genitourinary: Denies dysuria and Reports urinary frequency Musculoskeletal: Musculoskeletal: Denies back pain and Denies myalgias Integumentary/Breasts: Skin/Breast: Denies unusual bruising Neurologic: Reports Normal hearing present and Denies confusion Psychiatric: Psyc
[2020-11-08 17:30] LABS: Basophils Percent Auto 0.3 % (0.2-1.2); Eosinophils Percent Auto 26.1 % (0-4.4); Hemoglobin 9.7 g/dL (14.0-18.0); Immature Granulocyte Absolute 0.03 K/mm3 (0.00-0.031); Immature Granulocyte Percent A 0.4 % (0-0.5); Lymphocytes Absolute Auto 0.55 K/mm3 (0.9-3.2); Lymphocytes Percent Auto 7.3 % (18.3-44.2); Mean Corpuscular HGB Conc 31.3 g/dl (32-36); Mean Corpuscular Hemoglobin 27.4 pg (26-34); Mean Corpuscular Volume 87.6 fl (80-100); Mean Platelet Volume 10.2 fl (7.4-10.4); Monocytes Absolute Auto 1.1 K/mm3 (0.1-0.6); Monocytes Percent Auto 14.2 % (2.6-8.5); Neutrophils Absolute Auto 3.9 K/mm3 (1.3-6.7); Neutrophils Percent Auto 51.7 % (45.5-73.1); Platelet Count Result 120 k/mm3 (150-375); Red Blood Count 3.54 M/mm3 (4.6-6.20); White Blood Count 7.5 K/mm3 (4.5-10.0)
[2020-11-08 17:37] LABS: Glucose Point of Care 102 mg/dl (65-105)
[2020-11-08 17:45] LABS: INR 2.6; Prothrombin Time 26.8 Seconds (11.1-14.7)
[2020-11-08 17:46] LABS: Partial Thromboplastin Time 55.6 SECONDS (22.3-36.8)
[2020-11-08] MEDS: HEPARIN SOD/D5W 100 UNITS/ML 25,000 UNITS/250 ML BAG 10 UNITS IV CONT (17:55)
[2020-11-08 18:22] LABS: Creatinine Urine 38.1 mg/dL
[2020-11-08 18:29] LABS: Creatinine 24 Hour Urine 0.5 gm/24 (1.0-2.0); Total Volume 24 Hour Urine 1400 ml
[2020-11-08 21:40] LABS: Glucose Point of Care 157 mg/dl (65-105)
[2020-11-08 21:44] VITALS: BP 119/61; PULSE 75; RESP 18; TEMP 36.2; O2SAT 100
[2020-11-08] MEDS: MELATONIN 3 MG TABLET 6 MG PO (21:48)
[2020-11-08 21:49] VITALS: PULSE 78
[2020-11-08] MEDS: ATORVASTATIN 40 MG TABLET PO (21:49)
[2020-11-08] MEDS: traZODone HCL 25 MG TABLET PO (21:49)
[2020-11-08] MEDS: diphenhydrAMINE HCl CAP 25 MG CAPSULE PO (22:18)
[2020-11-08] MEDS: HYDROcodone/acetaminophen (*CRX) 5-325 MG TABLET 1 TAB PO (22:18)
[2020-11-09 06:00] VITALS: BP 111/58; PULSE 70; RESP 16; TEMP 36.3; O2SAT 93
[2020-11-09 07:46] LABS: Glucose Point of Care 109 mg/dl (65-105)
[2020-11-09 08:19] LABS: Basophils Percent Auto 0.2 % (0.2-1.2); Eosinophils Percent Auto 31.1 % (0-4.4); Immature Granulocyte Absolute 0.02 K/mm3 (0.00-0.031); Immature Granulocyte Percent A 0.3 % (0-0.5); Lymphocytes Absolute Auto 0.62 K/mm3 (0.9-3.2); Lymphocytes Percent Auto 9.8 % (18.3-44.2); Mean Corpuscular HGB Conc 32.1 g/dl (32-36); Mean Corpuscular Hemoglobin 27.4 pg (26-34); Mean Corpuscular Volume 85.1 fl (80-100); Mean Platelet Volume 11.3 fl (7.4-10.4); Monocytes Absolute Auto 0.9 K/mm3 (0.1-0.6); Monocytes Percent Auto 14.1 % (2.6-8.5); Neutrophils Absolute Auto 2.8 K/mm3 (1.3-6.7); Neutrophils Percent Auto 44.5 % (45.5-73.1); Platelet Count Result 113 k/mm3 (150-375); Red Blood Count 3.29 M/mm3 (4.6-6.20); Red Cell Distribution Width 17.8 % (11.5-14.5); White Blood Count 6.3 K/mm3 (4.5-10.0)
[2020-11-09 08:37] LABS: INR 2.4; Prothrombin Time 25.3 Seconds (11.1-14.7)
[2020-11-09 08:39] LABS: Partial Thromboplastin Time 79.7 SECONDS (22.3-36.8)
[2020-11-09 08:47] LABS: Albumin Level 3.9 g/dL (3.5-5.1); Anion Gap 18 mmol/L (8-16); Blood Urea Nitrogen 75 mg/dL (9-20); Calcium 9.2 mg/dL (8.4-10.2); Carbon Dioxide 24 mmol/L (22-30); Chloride 98 mmol/L (98-107); Estimated CRCL calculation 13 ml/min; Estimated Glomerular Filt Rate 11; Glucose 97 mg/dL (65-110); Phosphorus 8.7 mg/dL (2.5-4.5); Potassium 3.9 mmol/L (3.4-5.0); Sodium 140 mmol/L (137-145)
[2020-11-09] MEDS: ASCORBIC ACID 500 MG TABLET PO ×2 (08:57→16:27)
[2020-11-09] MEDS: FINASTERIDE 5 MG TABLET PO (08:57)
[2020-11-09] MEDS: FERROUS SULFATE 324 MG TABLET PO (08:57)
[2020-11-09 08:58] VITALS: PULSE 78
[2020-11-09] MEDS: PREGABALIN (*CRX) 75 MG CAPSULE PO ×2 (08:58→16:27)
[2020-11-09] MEDS: PANTOPRAZOLE 40 MG TABLET PO (08:58)
[2020-11-09] MEDS: BUMETANIDE 1 MG TABLET 2 MG PO (08:58)
[2020-11-09] MEDS: TAMSULOSIN HCL 0.4 MG CAPSULE PO (08:58)
[2020-11-09] MEDS: DULoxetine HCL 30 MG CAPSULE.DR PO (08:58)
[2020-11-09] MEDS: METOPROLOL TARTRATE 12.5 MG TABLET PO ×2 (08:58→20:29)
[2020-11-09] MEDS: metOLazone 5 MG TABLET PO (08:58)
[2020-11-09] MEDS: LACTIC ACID 12% LOTION 225 BTL 1 APPLIC TOPICAL (09:00)
[2020-11-09] MEDS: MAGNESIUM OXIDE 200 MG TABLET PO ×2 (09:04→20:29)
--- NOTE | 2020-11-09 09:57 | PM.PNCARD ---
Progress Note: A&P Assessment and Plan (1) CHF (congestive heart failure): Qualifiers: Heart failure chronicity: acute on chronic Heart failure type: unspecified Qualified Code(s): I50.9 - Heart failure, unspecified Code(s): I50.9 - Heart failure, unspecified Status: Chronic Assessment and Plan: 74-year-old male with CAD, CHF /biventricular failure with reduced LVEF at 30-35% from 10/29/2019 echocardiogram; history of [employer] mechanical aortic valve replacement and CABG with unknown graft (in 1982 as per patient, op report not available); atrial fibrillation on chronic anticoagulation with warfarin; CKD, chronic anemia, multiple myeloma. patient admitted [facility] with acute on chronic renal insufficiency, hyperkalemia. He has chronic biventricular failure, last EF 30 - 35% from 10/29/2019 echo, and currently has volume overload in the setting of CHF and renal insufficiency. - Bumex and albumin have been discontinued by Nephrology. The plan is for him to be initiated on hemodialysis. Will need dialysis access. He is currently anticoagulated with heparin drip to bridge him. Discussed this plan with Dr. Westbrook. - Sacubitril/valsartan, and spironolactone on hold for now due to Acute on chronic renal insufficiency. May resume Entresto if/when renal function stabilizes - Patient has not had regular cardiology follow-up. Patient is willing to follow up with us for longitudinal cardiac care after hospital discharge. (2) History of mechanical aortic valve replacement: Code(s): Z95.2 - Presence of prosthetic heart valve Status: Acute Assessment and Plan: History of remote mechanical aortic valve replacement with normal functioning valve from 10/29/2019 echo with a mean gradient of 5 mmHg. Hold Coumadin in anticipation of dialysis catheter placement (3) Atrial fibrillation: Qualifiers: Atrial fibrillation type: unspecified Qualified Code(s): I48.91 - Unspecified atrial fibrillation Code(s): I48.91 - Unspecified atrial fibrillation Status: Chronic Assessment and Plan: Fairly rate controlled with low-dose metoprolol tartrate. Rate control plus anticoagulation, now with heparin drip. (4) Supratherapeutic INR: Code(s): R79.1 - Abnormal coagulation profile Status: Acute Assessment and Plan: See above re: A/C (5) Neuropathy: Code(s): G62.9 - Polyneuropathy, unspecified Status: Acute Assessment and Plan: management of other medical problems as per primary team including local wound care. Subjective Date/time seen: 11/09/20 09:57 Interval history: Date of service: 11/09/2020- Resting comfortably in chair. Currently on heparin drip. Plan to start dialysis tomorrow. Has not got dialysis catheter yet. Review of Systems Review of Systems: All systems reviewed & are unremarkable except as noted in HPI and below Constitutional: Constitutional: Reports difficulty sleeping and Reports lethargy Eyes: Eyes: Denies change in vision ENT: Reports Normal hearing present and Denies tinnitus Cardiovascular: Cardiovascular: Reports pedal edema, Reports leg edema, Denies palpitations, Denies dyspnea and Denies dyspnea on exertion Respiratory: Respiratory: Reports cough, Denies dyspnea and Denies dyspnea on exertion Gastrointestinal: Gastrointestinal: Denies abdominal pain Genitourinary: Genitourinary: Denies dysuria and Reports urinary frequency Musculoskeletal: Musculoskeletal: Denies back pain and Denies myalgias Integumentary/Breasts: Skin/Breast: Denies unusual bruising Neurologic: Reports Normal hearing present and Denies confusion Psychiatric: Psychiatric: Denies anxiety, Denies confusion and Denies depression Endocrine: Endocrine: Denies palpitations Hematologic/Lymphatic: Hematologic/Lymphatic: Denies easy bleeding and Denies easy bruising Exam Narrative: PHYSICAL EXAMINATION:
--- NOTE | 2020-11-09 11:24 | P.PNNP_ITS ---
Progress Note: A&P Assessment and Plan (1) ANDRADE (acute kidney injury): Code(s): N17.9 - Acute kidney failure, unspecified Status: Acute Assessment and Plan: * ANDRADE * urine electrolytes non pre renal * urine eosinophils negative * ultrasound negative * UA shows blood and leukocytes. Urine culture showed Pseudomonas. * He is on imipenem. * Bumex drip discontinued yesterday and his creatinine went up anyway today. * 24hour urine came back and shows that his GFR was only 13 even when his creatinine was 2.5. Now it is around 7. He has no uremic symptoms but needs to start dialysis because of fluid as well. * He is on Coumadin because of his [employer] Crist[employer] heart valve. He is on heparin drip now and Coumadin was stopped yesterday by SHIRLEY Ventura. * I wonder if he can get some FFP to bring the INR down a little more quickly (2) Chronic kidney disease, stage IV (severe): Code(s): N18.4 - Chronic kidney disease, stage 4 (severe) Status: Chronic Assessment and Plan: * baseline creatinine ~ 1.6 - 2.1mg/dl since January 2020 * he may have a new baseline. * due to CHF, diabetes, age, and vascular disease * renal biopsy in July of this year with ATN and arteriosclerosis (3) Urinary tract infection: Code(s): N39.0 - Urinary tract infection, site not specified Status: Acute Assessment and Plan: * urine culture with Pseudomonas * on antibiotics (4) Hyperkalemia: Code(s): E87.5 - Hyperkalemia Status: Acute Assessment and Plan: * resolved (5) Hypertension: Qualifiers: Hypertension type: unspecified Qualified Code(s): I10 - Essential (primary) hypertension Code(s): I10 - Essential (primary) hypertension Status: Chronic Assessment and Plan: * Blood pressure doing pretty well (6) A-fib: Code(s): I48.91 - Unspecified atrial fibrillation Status: Chronic Assessment and Plan: * rate control strategy * on coumadin (7) Edema: Code(s): R60.9 - Edema, unspecified Status: Acute Assessment and Plan: On Bumex metolazone, and albumin. DC the latter. (8) Rash: Code(s): R21 - Rash and other nonspecific skin eruption Status: Acute Assessment and Plan: apparently chronic. symptomatic tx He still has significant eosinophilia. Subjective Date/time seen: 11/09/20 11:25 Interval history: patient is alert. his edema is about the same. Still has chronic venous stasis changes. Exam Narrative: General: WD/WN male in NAD Heart: irregular rate and rhythm. no rub Lungs: clear to auscultation Abdomen: BS+ nontender Extremities: no cyanosis or clubbing; 2+ edema Skin: chronic venous stasis dermatitis below his knees Objective Data Vital Signs Vital Signs: Vital Signs - 24 hr 11/08/20 14:00 11/08/20 21:44 11/08/20 21:49 Temperature 37.0 C 36.2 C L Pulse Rate 83 75 78 Respiratory Rate 20 18 Blood Pressure 102/55 L 119/61 Pulse Oximetry 100 100 11/09/20 06:00 11/09/20 08:58 Temperature 36.3 C L Pulse Rate 70 78 Respiratory Rate 16 Blood Pressure 111/58 L Pulse Oximetry 93 Intake/Output Intake/Output: Intake & Output 11/06/
--- NOTE | 2020-11-09 11:24 | PM.PNNEP ---
Progress Note: A&P Assessment and Plan (1) ANDRADE (acute kidney injury): Code(s): N17.9 - Acute kidney failure, unspecified Status: Acute Assessment and Plan: ANDRADE urine electrolytes non pre renal urine eosinophils negative ultrasound negative UA shows blood and leukocytes. Urine culture showed Pseudomonas. He is on imipenem. Bumex drip discontinued yesterday and his creatinine went up anyway today. 24hour urine came back and shows that his GFR was only 13 even when his creatinine was 2.5. Now it is around 7. He has no uremic symptoms but needs to start dialysis because of fluid as well. He is on Coumadin because of his [employer] heart valve. He is on heparin drip now and Coumadin was stopped yesterday by SHIRLEY Ventura. I wonder if he can get some FFP to bring the INR down a little more quickly (2) Chronic kidney disease, stage IV (severe): Code(s): N18.4 - Chronic kidney disease, stage 4 (severe) Status: Chronic Assessment and Plan: baseline creatinine ~ 1.6 - 2.1mg/dl since January 2020 he may have a new baseline. due to CHF, diabetes, age, and vascular disease renal biopsy in July of this year with ATN and arteriosclerosis (3) Urinary tract infection: Code(s): N39.0 - Urinary tract infection, site not specified Status: Acute Assessment and Plan: urine culture with Pseudomonas on antibiotics (4) Hyperkalemia: Code(s): E87.5 - Hyperkalemia Status: Acute Assessment and Plan: resolved (5) Hypertension: Qualifiers: Hypertension type: unspecified Qualified Code(s): I10 - Essential (primary) hypertension Code(s): I10 - Essential (primary) hypertension Status: Chronic Assessment and Plan: Blood pressure doing pretty well (6) A-fib: Code(s): I48.91 - Unspecified atrial fibrillation Status: Chronic Assessment and Plan: rate control strategy on coumadin (7) Edema: Code(s): R60.9 - Edema, unspecified Status: Acute Assessment and Plan: On Bumex metolazone, and albumin. DC the latter. (8) Rash: Code(s): R21 - Rash and other nonspecific skin eruption Status: Acute Assessment and Plan: apparently chronic. symptomatic tx He still has significant eosinophilia. Subjective Date/time seen: 11/09/20 11:25 Interval history: patient is alert. his edema is about the same. Still has chronic venous stasis changes. Exam Narrative: General: WD/WN male in NAD Heart: irregular rate and rhythm. no rub Lungs: clear to auscultation Abdomen: BS+ nontender Extremities: no cyanosis or clubbing; 2+ edema Skin: chronic venous stasis dermatitis below his knees Objective Data Vital Signs Vital Signs: Vital Signs - 24 hr 11/08/20 14:00 11/08/20 21:44 11/08/20 21:49 Temperature 37.0 C 36.2 C L Pulse Rate 83 75 78 Respiratory Rate 20 18 Blood Pressure 102/55 L 119/61 Pulse Oximetry 100 100 11/09/20 06:00 11/09/20 08:58 Temperature 36.3 C L Pulse Rate 70 78 Respiratory Rate 16 Blood Pressure 111/58 L Pulse Oximetry 93 Intake/Output Intake/Output: Intake & Output 11/06/20 11/07/20 11/08/20 11/09/20 23:59 23:59 23:59 23:59 Intake Total 1420 1010 1810 590 Output Total 500 1600 1850 250 Balance 920 -590 -40 340 Meds/Results Medications: Active Medications Generic Name Dose Route Start Last Admin Trade Name Freq PRN Reason Stop Dose Admin Hydrocodone Bitart/Acetaminophen 1 tab 11/02/20 08:42 11/08/20 22:18 Hydrocodone/Acetaminophen (*Crx) 5-325 Mg Tablet PO 1 tab Q4H PRN Administration Pain Rated 4-6 Ascorbic Acid 500 mg 10/26/20 17:00 11/09/20 08:57 Ascorbic Acid 500 Mg Tablet PO 500 mg BID MARY Administration Atorvastatin Calcium 40 mg 10/26/20 21:00 11/08/20 21:49 Atorvastatin 40 Mg Tablet PO 40 mg HS MARY Admi
[2020-11-09 11:44] LABS: Glucose Point of Care 148 mg/dl (65-105)
[2020-11-09 14:00] VITALS: BP 114/54; PULSE 88; RESP 18; TEMP 37.1; O2SAT 97
--- NOTE | 2020-11-09 16:46 | P.PNIM_ITS ---
Progress Note: A&P Assessment and Plan (1) ANDRADE (acute kidney injury): Code(s): N17.9 - Acute kidney failure, unspecified Status: Acute Assessment and Plan: * Cr up to 5.2 today * Appreciate nephrology recommendations. Discussed with Dr Westbrook. Plan is to initiate hemodialysis. Plan is for general surgery consultation for dialysis catheter placement. * Remains on Bumex and metolazone. * Renal US unremarkable. Renal biopsy 08/07/20 which showed acute tubular injury. (2) Chronic anticoagulation: Code(s): Z79.01 - alf (current) use of anticoagulants Status: Acute Assessment and Plan: * Patient has a mechanical aortic valve maintained on long-term anticoagulation with Warfarin. * Heparin gtt was initiated yesterday in order to keep him anticoagulated but easier to manage while anticipating a surgical procedure tomorrow. Continue heparin gtt until surgery recommends it is safe to resume patient's warfarin and until INR is in therapeutic range. * Monitor INR daily. * INR 2.4 today. Plan is for FFP prior to procedure tomorrow. (3) Anemia in CKD (chronic kidney disease): Qualifiers: Chronic kidney disease stage: unspecified stage Qualified Code(s): N18.9 - Chronic kidney disease, unspecified; D63.1 - Anemia in chronic kidney disease Code(s): N18.9 - Chronic kidney disease, unspecified; D63.1 - Anemia in chronic kidney disease Status: Acute Assessment and Plan: * Hgb remains low but stable without evidence of acute bleeding. Transfused 2 units pRBC 11/02. * Suspect related to anemia of CKD and other comorbid conditions. Also with positive occult blood in stool * Bone marrow biopsy July 2020 consistent with multiple myeloma however not requiring tx at this time. Previous provider discussed with oncologist Dr. Nowak. * Monitor CBC and transfuse prn * Continue PO iron supplementation * Received 20,000 units Epogen 11/02. F/u with Dr. Nowak in 2 weeks for repeat Epogen injection (4) CHF (congestive heart failure): Qualifiers: Heart failure chronicity: acute on chronic Heart failure type: unspecified Qualified Code(s): I50.9 - Heart failure, unspecified Code(s): I50.9 - Heart failure, unspecified Status: Chronic Assessment and Plan: * Volume status seems to be slowly improving * CXR with cardiomegaly, congestion, likely pulmonary edema and with complaints of scrotal edema * Echo with reduced EF 30-35% * Remains on oral bumex and metolazone. Continue fluid restriction and monitor I&Os. Will be dialyzed when access is established. * Appreciate cardiology input. Continue to hold Entresto and spironolactone due to ANDRADE. Resume if/when appropriate (5) Urinary tract infection in male: Code(s): N39.0 - Urinary tract infection, site not specified Status: Acute Assessment and Plan: * Urine culture grew Pseudomonas. He completed 7-day course of imipenem on 11/03/20. Blood cultures negative. (6) Occult blood in stools: Code(s): R19.5 - Other fecal abnormalities Status: Acute Assessment and Plan: * Occult blood positive on 07/16/2020 and 11/02/2020. He is otherwise asymptomatic without melena or hematochezia * Continue Protonix * Recommend outpatient GI follow-up for EGD and possibly colonoscopy. Consider inpatient consult if decline in H&H
--- NOTE | 2020-11-09 16:46 | PM.IMPN ---
Progress Note: A&P Assessment and Plan (1) ANDRADE (acute kidney injury): Code(s): N17.9 - Acute kidney failure, unspecified Status: Acute Assessment and Plan: Cr up to 5.2 today Appreciate nephrology recommendations. Discussed with Dr Westbrook. Plan is to initiate hemodialysis. Plan is for general surgery consultation for dialysis catheter placement. Remains on Bumex and metolazone. Renal US unremarkable. Renal biopsy 08/07/20 which showed acute tubular injury. (2) Chronic anticoagulation: Code(s): Z79.01 - retirement (current) use of anticoagulants Status: Acute Assessment and Plan: Patient has a mechanical aortic valve maintained on long-term anticoagulation with Warfarin. Heparin gtt was initiated yesterday in order to keep him anticoagulated but easier to manage while anticipating a surgical procedure tomorrow. Continue heparin gtt until surgery recommends it is safe to resume patient's warfarin and until INR is in therapeutic range. Monitor INR daily. INR 2.4 today. Plan is for FFP prior to procedure tomorrow. (3) Anemia in CKD (chronic kidney disease): Qualifiers: Chronic kidney disease stage: unspecified stage Qualified Code(s): N18.9 - Chronic kidney disease, unspecified; D63.1 - Anemia in chronic kidney disease Code(s): N18.9 - Chronic kidney disease, unspecified; D63.1 - Anemia in chronic kidney disease Status: Acute Assessment and Plan: Hgb remains low but stable without evidence of acute bleeding. Transfused 2 units pRBC 11/02. Suspect related to anemia of CKD and other comorbid conditions. Also with positive occult blood in stool Bone marrow biopsy July 2020 consistent with multiple myeloma however not requiring tx at this time. Previous provider discussed with oncologist Dr. Nowak. Monitor CBC and transfuse prn Continue PO iron supplementation Received 20,000 units Epogen 11/02. F/u with Dr. Nowak in 2 weeks for repeat Epogen injection (4) CHF (congestive heart failure): Qualifiers: Heart failure chronicity: acute on chronic Heart failure type: unspecified Qualified Code(s): I50.9 - Heart failure, unspecified Code(s): I50.9 - Heart failure, unspecified Status: Chronic Assessment and Plan: Volume status seems to be slowly improving CXR with cardiomegaly, congestion, likely pulmonary edema and with complaints of scrotal edema Echo with reduced EF 30-35% Remains on oral bumex and metolazone. Continue fluid restriction and monitor I&Os. Will be dialyzed when access is established. Appreciate cardiology input. Continue to hold Entresto and spironolactone due to ANDRADE. Resume if/when appropriate (5) Urinary tract infection in male: Code(s): N39.0 - Urinary tract infection, site not specified Status: Acute Assessment and Plan: Urine culture grew Pseudomonas. He completed 7-day course of imipenem on 11/03/20. Blood cultures negative. (6) Occult blood in stools: Code(s): R19.5 - Other fecal abnormalities Status: Acute Assessment and Plan: Occult blood positive on 07/16/2020 and 11/02/2020. He is otherwise asymptomatic without melena or hematochezia Continue Protonix Recommend outpatient GI follow-up for EGD and possibly colonoscopy. Consider inpatient consult if decline in H&H (7) Atrial fibrillation: Qualifiers: Atrial fibrillation type: unspecified Qualified Code(s): I48.91 - Unspecified atrial fibrillation Code(s): I48.91 - Unspecified atrial fibrillation Status: Chronic Assessment and Plan: Rate controlled. Continue home metoprolol. Heparin gtt in light of his warfarin being held as mentione
[2020-11-09 16:51] LABS: Glucose Point of Care 126 mg/dl (65-105)
[2020-11-09] MEDS: HEPARIN SOD/D5W 100 UNITS/ML 25,000 UNITS/250 ML BAG 8 UNITS IV CONT (16:59)
--- NOTE | 2020-11-09 18:29 | WPDANESEPP ---
Anes - Eval Pre Procedure Procedure: Operation Date: 11/10/20 09:00 Proposed Procedures p Insertion Tunneled Dialysis Catheter - Axel Hart MD Date/Time: 11/09/20 18:29 Pre Op Diagnosis: urinary tract infection,iris,hyperkalemia Patient Data Age: 74 Gender: M Height: 1.8 m Weight: 87.1 kg Last Vital Signs Temp 98.7 F 11/09/20 14:00 Pulse 88 11/09/20 14:00 Resp 18 11/09/20 14:00 BP 114/54 L 11/09/20 14:00 Pulse Ox 97 11/09/20 14:00 Allergies Allergy/AdvReac Type Severity Reaction Status Date / Time zolpidem Allergy Unknown Verified 10/26/20 12:53 gabapentin AdvReac Shakiness Verified 10/26/20 12:53 Home Medications Medication Instructions Recorded Confirmed Type ascorbic acid (vitamin C) [Vitamin 500 mg PO BID #60 tablet 05/29/20 10/26/20 Rx C] atorvastatin 40 mg PO HS #30 tablet 05/29/20 10/26/20 Rx duloxetine 30 mg PO DAILY #30 cap 05/29/20 10/26/20 Rx finasteride 5 mg PO DAILY #30 tablet 05/29/20 10/26/20 Rx magnesium hydroxide [Milk of 400 mg PO DAILY PRN #30 ml 05/29/20 10/26/20 Rx Magnesia] melatonin 6 mg PO HS #30 tablet 05/29/20 10/26/20 Rx pantoprazole 40 mg PO DAILY #30 tablet 05/29/20 10/26/20 Rx tamsulosin 0.4 mg PO DAILY #30 cap 05/29/20 10/26/20 Rx trazodone 25 mg PO HS #30 tablet 05/29/20 10/26/20 Rx pregabalin 75 mg capsule 75 mg PO BID #60 cap 07/04/20 10/26/20 Rx Citroma 296 ml PO DAILY PRN 07/12/20 10/26/20 History bisacodyl 10 mg RECTAL DAILY PRN 07/12/20 10/26/20 History ferrous sulfate 325 mg PO DAILY@0800 07/12/20 10/26/20 History metoprolol tartrate 12.5 mg PO Q12HR 07/12/20 10/26/20 History sennosides [Senna Lax] 17.2 mg PO HS 07/12/20 10/26/20 History ammonium lactate 1 applic TOPICAL DAILY 10/26/20 10/26/20 History bumetanide [Bumex] 1 mg PO BID 10/26/20 10/26/20 History guaifenesin 400 mg PO Q4H 10/26/20 10/26/20 History hydrocodone-acetaminophen 1 tablet PO BID 10/26/20 10/26/20 History hydrocodone-acetaminophen 1 tablet PO Q4H PRN 10/26/20 10/26/20 History sacubitril-valsartan [Entresto] 1 tablet PO BID 10/26/20 10/26/20 History spironolactone 25 mg PO DAILY 10/26/20 10/26/20 History warfarin 3 mg PO QTUTHSASU 10/26/20 10/26/20 History warfarin 4 mg PO QMWF 10/26/20 10/26/20 History Laboratory Tests 11/08/20 11/08/20 11/09/20 18:05 21:14 00:30 WBC RBC Hgb Hct MCV MCH MCHC RDW Plt Count MPV Immature Gran % (Auto) Neut % (Auto) Lymph % (Auto) [place] % (Auto) Eos % (Auto) Baso % (Auto) Lymph # (Auto) [place] # (Auto) Eos # (Auto) Baso # (Auto) Abs Immat Gran (auto) Absolute Neuts (auto) Absolute Nucleated RBC Nucleated RBC % PT INR APTT 115.0 SECONDS H SECONDS (22.3-36.8) Sodium Potassium Chloride Carbon Dioxide Anion Gap BUN Creatinine Estim Creat Clear Calc Estimated GFR Glucose POC Capillary Glucose 157 mg/dl H mg/dl (65-105) Calcium Phosphorus Albumin Ur 24 Hour Volume 1400 ml ml Ur Creatinine 24 Hour 0.5 gm/24 L gm/24 (1.0-2.0) 11/09/20 11/09/20 11/09/20 07:43 08:13 08:14 WBC 6.3 K/mm3 K/mm3 (4.5-10.0) RBC 3.29 M/mm3 L M/mm3 (4.6-6.20) Hgb 9.0 g/dL L g/dL (14.0-18.0) Hct 28.0 % L % (42.0-52.0) MCV 85.1 fl fl (80-100) MCH 27.4 pg pg (26-34) MCHC 32.1 g/dl g/dl (32-36) RDW 17.8 % H % (11.5-14.5) Plt Count 113 k/mm3 L k/mm3 (150-375) MPV 11.3 fl H fl (7.4-10.4) Immature Gran % (Auto) 0.3 % %
[2020-11-09 20:03] LABS: Partial Thromboplastin Time 90.1 SECONDS (22.3-36.8)
[2020-11-09 20:29] VITALS: PULSE 86
[2020-11-09] MEDS: guaiFENesin/DEXTROMETHORPHAN 10 ML UDC 5 ML PO (20:29)
[2020-11-09] MEDS: ATORVASTATIN 40 MG TABLET PO (20:29)
[2020-11-09] MEDS: MELATONIN 3 MG TABLET 6 MG PO (20:31)
[2020-11-09] MEDS: SENNOSIDES 8.6 MG TABLET 17.2 MG PO (20:31)
[2020-11-09] MEDS: traZODone HCL 25 MG TABLET PO (20:33)
[2020-11-09 20:49] LABS: Glucose Point of Care 206 mg/dl (65-105)
[2020-11-09 21:05] VITALS: BP 135/62; PULSE 87; RESP 18; TEMP 36.5; O2SAT 94
[2020-11-10] VITALS (29 sets, daily range): BP systolic 111–148; BP diastolic 52–86; PULSE 62–92; RESP 13–21; TEMP 36.3–37.2; O2SAT 91–96
[2020-11-10 02:51] LABS: INR 2.2; Prothrombin Time 23.5 Seconds (11.1-14.7)
[2020-11-10 02:52] LABS: Albumin Level 3.9 g/dL (3.5-5.1); Anion Gap 16 mmol/L (8-16); Blood Urea Nitrogen 84 mg/dL (9-20); Carbon Dioxide 25 mmol/L (22-30); Chloride 97 mmol/L (98-107); Estimated CRCL calculation 12 ml/min; Estimated Glomerular Filt Rate 10; Glucose 94 mg/dL (65-110); Phosphorus 9.1 mg/dL (2.5-4.5); Potassium 4.2 mmol/L (3.4-5.0); Sodium 138 mmol/L (137-145)
[2020-11-10 02:53] LABS: Partial Thromboplastin Time 104.1 SECONDS (22.3-36.8)
[2020-11-10 03:19] LABS: Basophils Percent Auto 0.3 % (0.2-1.2); Eosinophils Absolute Auto 1.8 K/mm3 (0-0.3); Eosinophils Percent Auto 25.4 % (0-4.4); Hematocrit 27.4 % (42.0-52.0); Hemoglobin 8.8 g/dL (14.0-18.0); Immature Granulocyte Absolute 0.03 K/mm3 (0.00-0.031); Immature Granulocyte Percent A 0.4 % (0-0.5); Lymphocytes Absolute Auto 0.65 K/mm3 (0.9-3.2); Lymphocytes Percent Auto 9.4 % (18.3-44.2); Mean Corpuscular HGB Conc 32.1 g/dl (32-36); Mean Corpuscular Hemoglobin 27.2 pg (26-34); Mean Corpuscular Volume 84.6 fl (80-100); Mean Platelet Volume 11.8 fl (7.4-10.4); Monocytes Percent Auto 13.7 % (2.6-8.5); Neutrophils Absolute Auto 3.5 K/mm3 (1.3-6.7); Neutrophils Percent Auto 50.8 % (45.5-73.1); Platelet Count Result 105 k/mm3 (150-375); Red Blood Count 3.24 M/mm3 (4.6-6.20); Red Cell Distribution Width 17.4 % (11.5-14.5); White Blood Count 6.9 K/mm3 (4.5-10.0)
--- NOTE | 2020-11-10 05:21 | PC.NURSE ---
0430 Call made to lab for fresh frozen plasma to be given at 0500. Kay from lab stated she would check and call back. Call again made at 0515 about plasma and she stated it will need to wait for day shift . Will call again when day shift arrives.
--- NOTE | 2020-11-10 07:48 | PC.NURSE ---
To OR per bed, IV running plasma. Report given to PreOp Nurse
--- NOTE | 2020-11-10 08:13 | WPDANESEFPP ---
Anes - Eval Final PreProcedure Day of Procedure 11/10/20 08:13 Patient weight: overweight Heart: regular rate and rhythm Lungs: clear to auscultation Airway: Mallampati scale class II Neurological: alert and oriented Last oral intake: >/= 8 hours Emergent: no Anesthetic plan: proceed Anesthesia type and monitoring: general and standard monitoring Informed Consent: The patient's anesthetic plan and its attendant risks and benefits were discussed with the patient/family/POA. Questions were solicited and answers provided to the satisfaction of the patient/family/POA.
[2020-11-10 08:31] LABS: Glucose Point of Care 99 mg/dl (65-105)
--- NOTE | 2020-11-10 08:37 | WPDHPUPDATE1 ---
History and Physical Update Update Date/Time: 11/10/20 08:37 History and Physical has been reviewed, including an updated exam of the patient. There are NO changes in the patient's condition. We are planning to place a tunnelled dialysis catheter on the Rt. side. Risks, benefits, and alternatives have been discussed and questions answered. Patient agrees to proceed with procedure.
[2020-11-10] MEDS: SODIUM CHLORIDE 0.9% IV 500 ML 30 ML IV CONT (09:26)
[2020-11-10 09:57] LABS: INR 1.9; Prothrombin Time 21.3 Seconds (11.1-14.7)
[2020-11-10 09:58] LABS: Partial Thromboplastin Time 49.6 SECONDS (22.3-36.8)
--- NOTE | 2020-11-10 10:00 | SUR.PREOP ---
0830- Dr. Hart to Pre-op room 6 to round on patient and this RN made him aware that patient's 1 unit of FFP is infusing at this time. Per Dr. Hart obtain lab values for PT, PTT, and INR once transfusion complete of FFP, to notify of lab results, and to prep patient's bilateral neck and chest to nipple line with chlorhexidine wipes. 1656- This RN prepped patient's skin with chlorhexidine wipes per Dr. Hart's instructions. 1000- OR nurse notified Dr. Hart of lab results for PT, PTT, and INR. Patient taken to OR via stretcher.
[2020-11-10] MEDS: BUPIVACAINE/EPINEPHRINE 0.25% 10 ML VIAL INFILTRATE (10:36)
[2020-11-10] MEDS: HEPARIN SODIUM 1,000 UNITS/ML VIAL 1000 UNITS IV PUSH (10:37)
[2020-11-10] MEDS: HEPARIN SODIUM, PORCINE 10,000 UNITS/10 ML VIAL 10 UNITS IRRIGATION (10:43)
--- NOTE | 2020-11-10 10:49 | SUR.OPER ---
Tunneled Dialysis Catheter inserted per Dr. Hart. Algidex Ag Patch placed on catheter site.
--- NOTE | 2020-11-10 11:01 | W.PM.PROC2 ---
Procedure Note - Detailed Date of Procedure 11/10/20 Pre-op Diagnosis worsening chronic kidney disease with need for dialysis Post-op Diagnosis same Procedure Performed Ultrasound-guided placement of tunneled dialysis catheter. Surgeon Axel Hart MD Supervisor Solder Making Latonya HENDERSON.OR registrar assistant Anesthesia local ( 0.5% Marcaine with epinephrine) and other (GIVS) Indications The patient has end-stage renal disease with need for access for hemodialysis Findings Normal Vascular anatomy in the Rt. neck. ( image of right internal jugular and right carotid saved to chart by ultrasound machine). Description of Procedure The patient was placed in the supine position on the operating table and after induction of adequate mask general anesthesia by the nurse rap artist, we carefully rotated the patient's head and tilted slightly to the left then prepping both sides of the neck and chest with chlorhexidine. After waiting 3 minutes I carefully draped the patient, and we performed a time-out confirming the patient's site of surgery. Because of the patients size, a 28 cm DuraFlow catheter was selected. Using the ultrasound probe we carefully examined the anatomy in the right neck and saved a image of this in the chart. I used ultrasound to identify the right jugular vein in the mid neck and this was cannulated under direct vision with an 18-gauge Arrow needle on a syringe. Good dark blood was aspirated, the J-guidewire was advanced through the needle and into the central venous system using the usual Seldinger technique. C-arm fluoroscopy was used to confirm that the wire was then through the central venous system and then we removed the needle and blue guide off the wire. Following this, we measured the DuraFlow catheter such that the tip would be just into the right atrium or in the distal superior vena cava. A hemostat was placed on the drapes over the chest to guide where we would place this. Then the catheter was measured back to the entry site of the J- wire in a curvilinear fashion and down to the patient's chest overlying the right clavicle. Local anesthetic was placed into 3 jiménez, the exit site and then 2 more on the patient's lateral neck such that a curvilinear path could be dissected through the subcutaneous tissues up to the insertion site on he patients right neck. Local anesthetic was infiltrated along the tract prior to tunneling. Incisions were made with an 11 blade knife at the exit site and the 2 counter incisions and then an 11 blade at the wire. The tunneling device was connected to the catheter and this was pulled through these incisions to make the subcutaneous tunnel a curvilinear course through the subcutaneous tissues to the insertion site. Then the wire was serially dilated with a 12, 14, and then a 16-Belarusian dilator over the pull away sheath. We watched the 16-Belarusian dilator and sheath go down into the central venous system with C-arm fluoroscopy and then removed the dilator wire after carefully covering the end of the catheter. I lost some blood, as we then inserted the catheter down into the central venous system. The catheter was held in place with a DeBakey forceps and then we carefully tore away the sheath leaving the catheter within the subcutaneous tissues and down into the juglar vein. Following this, C-arm fluoroscopy was used to examine the full course of the catheter. The tip was just into the right atrium and there was a good curvilinear course of the catheter in the neck down to the exit site over the right clavicle. Minimal bleeding was continuing, so we then went ahead and closed these incisions with some buried subcutaneous sutures of 4-0 Monocryl directly over the catheter at the insertion site and then buried subcutaneous sutures at each of the incisions except the exit site. 3-0 nylon was used to suture the catheter at its hub to the skin and an antibiotic disc was placed at the exit site. Tegaderm and a 2 X 2 guaze
[2020-11-10 11:10] LABS: Glucose Point of Care 101 mg/dl (65-105)
--- NOTE | 2020-11-10 11:25 | SUR.PHASEI ---
CORRECTION: 150 ML NS INFUSED FROM PREOP TO END OF RECOVERY.
[2020-11-10 12:30] LABS: Glucose Point of Care 99 mg/dl (65-105)
--- NOTE | 2020-11-10 12:57 | P.PNNP_ITS ---
Progress Note: A&P Assessment and Plan (1) ANDRADE (acute kidney injury): Code(s): N17.9 - Acute kidney failure, unspecified Status: Acute Assessment and Plan: * ANDRADE * urine electrolytes non pre renal * urine eosinophils negative * ultrasound negative * UA shows blood and leukocytes. Urine culture showed Pseudomonas. * He is on imipenem. * dialysis catheter is in. * He will get dialysis today and tomorrow. (2) Chronic kidney disease, stage IV (severe): Code(s): N18.4 - Chronic kidney disease, stage 4 (severe) Status: Chronic Assessment and Plan: * baseline creatinine ~ 1.6 - 2.1mg/dl since January 2020 * he may have a new baseline. * due to CHF, diabetes, age, and vascular disease * renal biopsy in July of this year with ATN and arteriosclerosis * Even when he was at his baseline creatinine of 2.5 his GFR was only 13. * Will consider this acute kidney injury but this may end up progressing to end-stage kidneys. * Will see how he is when his flow it is off. (3) Urinary tract infection: Code(s): N39.0 - Urinary tract infection, site not specified Status: Acute Assessment and Plan: * urine culture with Pseudomonas * on antibiotics (4) Hyperkalemia: Code(s): E87.5 - Hyperkalemia Status: Acute Assessment and Plan: * resolved (5) Hypertension: Qualifiers: Hypertension type: unspecified Qualified Code(s): I10 - Essential (primary) hypertension Code(s): I10 - Essential (primary) hypertension Status: Chronic Assessment and Plan: * Blood pressure doing pretty well (6) A-fib: Code(s): I48.91 - Unspecified atrial fibrillation Status: Chronic Assessment and Plan: * rate control strategy * on coumadin (7) Edema: Code(s): R60.9 - Edema, unspecified Status: Acute Assessment and Plan: On Bumex metolazone Continue this. (8) Rash: Code(s): R21 - Rash and other nonspecific skin eruption Status: Acute Assessment and Plan: apparently chronic. symptomatic tx He still has significant eosinophilia. Subjective Date/time seen: 11/10/20 12:57 Interval history: patient is alert. He had the dialysis catheter placed this morning. I notified dialysis that he is ready whenever they can come. Exam Narrative: General: WD/WN male in NAD Heart: irregular rate and rhythm. no rub Lungs: clear to auscultation Abdomen: BS+ nontender and soft Extremities: no cyanosis or clubbing; 2+ edema Skin: chronic venous stasis dermatitis below his knees Objective Data Vital Signs Vital Signs: Vital Signs - 24 hr 11/09/20 14:00 11/09/20 20:29 11/09/20 21:05 Temperature 37.1 C 36.5 C Pulse Rate 88 86 87 Respiratory Rate 18 18 Blood Pressure 114/54 L 135/62 Pulse Oximetry 97 94 11/10/20 05:18 11/10/20 06:33 11/10/20 06:51 Temperature 36.5 C 36.7 C 36.3 C L Pulse Rate 77 78 83 Respiratory Rate 18 16 14 Blood Pressure 127/68 141/63 H 137/72 Pulse Oximetry 91 96 92 11/10/20 07:51 11/10/20 08:51 11/10/20 09:10 Temperature 37.1 C 37.1 C 37.2 C Pulse Rate 72 84 70 Respiratory Rate 14 16 14 Blood Pres
--- NOTE | 2020-11-10 12:57 | PM.PNNEP ---
Progress Note: A&P Assessment and Plan (1) ANDRADE (acute kidney injury): Code(s): N17.9 - Acute kidney failure, unspecified Status: Acute Assessment and Plan: ANDRADE urine electrolytes non pre renal urine eosinophils negative ultrasound negative UA shows blood and leukocytes. Urine culture showed Pseudomonas. He is on imipenem. dialysis catheter is in. He will get dialysis today and tomorrow. (2) Chronic kidney disease, stage IV (severe): Code(s): N18.4 - Chronic kidney disease, stage 4 (severe) Status: Chronic Assessment and Plan: baseline creatinine ~ 1.6 - 2.1mg/dl since January 2020 he may have a new baseline. due to CHF, diabetes, age, and vascular disease renal biopsy in July of this year with ATN and arteriosclerosis Even when he was at his baseline creatinine of 2.5 his GFR was only 13. Will consider this acute kidney injury but this may end up progressing to end-stage kidneys. Will see how he is when his flow it is off. (3) Urinary tract infection: Code(s): N39.0 - Urinary tract infection, site not specified Status: Acute Assessment and Plan: urine culture with Pseudomonas on antibiotics (4) Hyperkalemia: Code(s): E87.5 - Hyperkalemia Status: Acute Assessment and Plan: resolved (5) Hypertension: Qualifiers: Hypertension type: unspecified Qualified Code(s): I10 - Essential (primary) hypertension Code(s): I10 - Essential (primary) hypertension Status: Chronic Assessment and Plan: Blood pressure doing pretty well (6) A-fib: Code(s): I48.91 - Unspecified atrial fibrillation Status: Chronic Assessment and Plan: rate control strategy on coumadin (7) Edema: Code(s): R60.9 - Edema, unspecified Status: Acute Assessment and Plan: On Bumex metolazone Continue this. (8) Rash: Code(s): R21 - Rash and other nonspecific skin eruption Status: Acute Assessment and Plan: apparently chronic. symptomatic tx He still has significant eosinophilia. Subjective Date/time seen: 11/10/20 12:57 Interval history: patient is alert. He had the dialysis catheter placed this morning. I notified dialysis that he is ready whenever they can come. Exam Narrative: General: WD/WN male in NAD Heart: irregular rate and rhythm. no rub Lungs: clear to auscultation Abdomen: BS+ nontender and soft Extremities: no cyanosis or clubbing; 2+ edema Skin: chronic venous stasis dermatitis below his knees Objective Data Vital Signs Vital Signs: Vital Signs - 24 hr 11/09/20 14:00 11/09/20 20:29 11/09/20 21:05 Temperature 37.1 C 36.5 C Pulse Rate 88 86 87 Respiratory Rate 18 18 Blood Pressure 114/54 L 135/62 Pulse Oximetry 97 94 11/10/20 05:18 11/10/20 06:33 11/10/20 06:51 Temperature 36.5 C 36.7 C 36.3 C L Pulse Rate 77 78 83 Respiratory Rate 18 16 14 Blood Pressure 127/68 141/63 H 137/72 Pulse Oximetry 91 96 92 11/10/20 07:51 11/10/20 08:51 11/10/20 09:10 Temperature 37.1 C 37.1 C 37.2 C Pulse Rate 72 84 70 Respiratory Rate 14 16 14 Blood Pressure 120/52 L 127/59 L 118/58 L Pulse Oximetry 93 93 70 L 11/10/20 10:59 11/10/20 11:10 11/10/20 11:25 Temperature 36.4 C Pulse Rate 71 78 76 Respiratory Rate 13 17 21 H Blood Pressure 111/59 L 121/68 115/64 Pulse Oximetry 93 93 94 11/10/20 11:39 11/10/20 11:45 11/10/20 12:00 Temperature Pulse Rate 62 67 68 Respiratory Rate 20 20 20 Blood Pressure 118/69 124/72 111/74 Pulse Oximetry 94 94 94 11/10/20 12:08 Temperature Pulse Rate 66 Respiratory Rate 18 Blood Pressure 126/64 Pulse Oximetry 95 Intake/Output Intake/Output: Intake & Output 11/07/20 11/08/20 11/09/20 11/10/20 23:59 23:59 23:59 23:59 Intake Total 1010 1810 1860 869 Output Total 1600 1850 1350 1000 Balance -590 -40 510 -131
[2020-11-10] MEDS: PREGABALIN (*CRX) 75 MG CAPSULE PO ×2 (13:41→18:48)
[2020-11-10] MEDS: BUMETANIDE 1 MG TABLET 2 MG PO (13:41)
[2020-11-10] MEDS: FINASTERIDE 5 MG TABLET PO (13:42)
[2020-11-10] MEDS: METOPROLOL TARTRATE 12.5 MG TABLET PO ×2 (13:42→20:43)
[2020-11-10] MEDS: PANTOPRAZOLE 40 MG TABLET PO (13:42)
[2020-11-10] MEDS: TAMSULOSIN HCL 0.4 MG CAPSULE PO (13:42)
[2020-11-10] MEDS: FERROUS SULFATE 324 MG TABLET PO (13:42)
[2020-11-10] MEDS: DULoxetine HCL 30 MG CAPSULE.DR PO (13:42)
[2020-11-10] MEDS: ASCORBIC ACID 500 MG TABLET PO ×2 (13:42→18:47)
[2020-11-10] MEDS: metOLazone 5 MG TABLET PO (13:43)
[2020-11-10] MEDS: MAGNESIUM OXIDE 200 MG TABLET PO ×2 (13:43→20:44)
[2020-11-10] MEDS: LACTIC ACID 12% LOTION 225 BTL 1 APPLIC TOPICAL (13:44)
[2020-11-10] MEDS: guaiFENesin/DEXTROMETHORPHAN 10 ML UDC 5 ML PO (13:51)
--- NOTE | 2020-11-10 16:37 | P.PNIM_ITS ---
Progress Note: A&P Assessment and Plan (1) ANDRADE (acute kidney injury): Code(s): N17.9 - Acute kidney failure, unspecified Status: Acute Assessment and Plan: * Cr up to 5.5 today. He has had right IJ dialysis catheter placed today by Dr Hart and is getting his first HD treatment today. * Appreciate nephrology recommendations. Discussed with Dr Westbrook. * Remains on Bumex and metolazone. * Renal US unremarkable. Renal biopsy 08/07/20 which showed acute tubular injury. (2) Chronic anticoagulation: Code(s): Z79.01 - prison (current) use of anticoagulants Status: Acute Assessment and Plan: * Patient has a mechanical aortic valve maintained on long-term anticoagulation with Warfarin. * Heparin gtt was initiated 11/08 in order to keep him anticoagulated while we held warfarin for his surgery today. * INR 2.2 this AM. Received FFP early AM today prior to his procedure. * Monitor INR daily. Resume warfarin tomorrow 11/11 - discussed with Dr Hart. (3) Anemia in CKD (chronic kidney disease): Qualifiers: Chronic kidney disease stage: unspecified stage Qualified Code(s): N18.9 - Chronic kidney disease, unspecified; D63.1 - Anemia in chronic kidney disease Code(s): N18.9 - Chronic kidney disease, unspecified; D63.1 - Anemia in chronic kidney disease Status: Acute Assessment and Plan: * Hgb remains low but stable without evidence of acute bleeding. Transfused 2 units pRBC 11/02. * Suspect related to anemia of CKD and other comorbid conditions. Also with positive occult blood in stool * Bone marrow biopsy July 2020 consistent with multiple myeloma however not requiring tx at this time. Previous provider discussed with oncologist Dr. Nowak. * Monitor CBC and transfuse prn * Continue PO iron supplementation * Received 20,000 units Epogen 11/02. F/u with Dr. Nowak in 2 weeks for repeat Epogen injection (4) CHF (congestive heart failure): Qualifiers: Heart failure chronicity: acute on chronic Heart failure type: unspecified Qualified Code(s): I50.9 - Heart failure, unspecified Code(s): I50.9 - Heart failure, unspecified Status: Chronic Assessment and Plan: * Hopeful volume status will improve with initiation of dialysis. * CXR with cardiomegaly, congestion, likely pulmonary edema and with complaints of scrotal edema * Echo with reduced EF 30-35% * Remains on oral bumex and metolazone. Continue fluid restriction and monitor I&Os. * Appreciate cardiology input. Continue to hold Entresto and spironolactone due to ANDRADE. Resume if/when appropriate. (5) Urinary tract infection in male: Code(s): N39.0 - Urinary tract infection, site not specified Status: Acute Assessment and Plan: * Urine culture grew Pseudomonas. He completed 7-day course of imipenem on 11/03/20. Blood cultures negative. (6) Occult blood in stools: Code(s): R19.5 - Other fecal abnormalities Status: Acute Assessment and Plan: * Occult blood positive on 07/16/2020 and 11/02/2020. He is otherwise asymptomatic without melena or hematochezia * Continue Protonix * Recommend outpatient GI follow-up for EGD and possibly colonoscopy. Consider inpatient consult if modest decline in H&H (7) Atrial fibrillation: Qualifiers: Atrial fibrillatio
--- NOTE | 2020-11-10 16:37 | PM.IMPN ---
Progress Note: A&P Assessment and Plan (1) ANDRADE (acute kidney injury): Code(s): N17.9 - Acute kidney failure, unspecified Status: Acute Assessment and Plan: Cr up to 5.5 today. He has had right IJ dialysis catheter placed today by Dr Hart and is getting his first HD treatment today. Appreciate nephrology recommendations. Discussed with Dr Westbrook. Remains on Bumex and metolazone. Renal US unremarkable. Renal biopsy 08/07/20 which showed acute tubular injury. (2) Chronic anticoagulation: Code(s): Z79.01 - jail (current) use of anticoagulants Status: Acute Assessment and Plan: Patient has a mechanical aortic valve maintained on long-term anticoagulation with Warfarin. Heparin gtt was initiated 11/08 in order to keep him anticoagulated while we held warfarin for his surgery today. INR 2.2 this AM. Received FFP early AM today prior to his procedure. Monitor INR daily. Resume warfarin tomorrow 11/11 - discussed with Dr Hart. (3) Anemia in CKD (chronic kidney disease): Qualifiers: Chronic kidney disease stage: unspecified stage Qualified Code(s): N18.9 - Chronic kidney disease, unspecified; D63.1 - Anemia in chronic kidney disease Code(s): N18.9 - Chronic kidney disease, unspecified; D63.1 - Anemia in chronic kidney disease Status: Acute Assessment and Plan: Hgb remains low but stable without evidence of acute bleeding. Transfused 2 units pRBC 11/02. Suspect related to anemia of CKD and other comorbid conditions. Also with positive occult blood in stool Bone marrow biopsy July 2020 consistent with multiple myeloma however not requiring tx at this time. Previous provider discussed with oncologist Dr. Nowak. Monitor CBC and transfuse prn Continue PO iron supplementation Received 20,000 units Epogen 11/02. F/u with Dr. Nowak in 2 weeks for repeat Epogen injection (4) CHF (congestive heart failure): Qualifiers: Heart failure chronicity: acute on chronic Heart failure type: unspecified Qualified Code(s): I50.9 - Heart failure, unspecified Code(s): I50.9 - Heart failure, unspecified Status: Chronic Assessment and Plan: Hopeful volume status will improve with initiation of dialysis. CXR with cardiomegaly, congestion, likely pulmonary edema and with complaints of scrotal edema Echo with reduced EF 30-35% Remains on oral bumex and metolazone. Continue fluid restriction and monitor I&Os. Appreciate cardiology input. Continue to hold Entresto and spironolactone due to ANDRADE. Resume if/when appropriate. (5) Urinary tract infection in male: Code(s): N39.0 - Urinary tract infection, site not specified Status: Acute Assessment and Plan: Urine culture grew Pseudomonas. He completed 7-day course of imipenem on 11/03/20. Blood cultures negative. (6) Occult blood in stools: Code(s): R19.5 - Other fecal abnormalities Status: Acute Assessment and Plan: Occult blood positive on 07/16/2020 and 11/02/2020. He is otherwise asymptomatic without melena or hematochezia Continue Protonix Recommend outpatient GI follow-up for EGD and possibly colonoscopy. Consider inpatient consult if modest decline in H&H (7) Atrial fibrillation: Qualifiers: Atrial fibrillation type: unspecified Qualified Code(s): I48.91 - Unspecified atrial fibrillation Code(s): I48.91 - Unspecified atrial fibrillation Status: Chronic Assessment and Plan: Rate controlled. Continue home metoprolol. Heparin gtt in light of his warfarin being held as mentioned above. (8) Hypertension: Qualifiers:
[2020-11-10 17:07] LABS: Partial Thromboplastin Time 44.9 SECONDS (22.3-36.8)
[2020-11-10 18:33] LABS: Glucose Point of Care 115 mg/dl (65-105)
[2020-11-10] MEDS: HEPARIN SOD/D5W 100 UNITS/ML 25,000 UNITS/250 ML BAG 8 UNITS IV CONT (18:40)
[2020-11-10] MEDS: MELATONIN 3 MG TABLET 6 MG PO (20:42)
[2020-11-10] MEDS: traZODone HCL 25 MG TABLET PO (20:44)
[2020-11-10] MEDS: ATORVASTATIN 40 MG TABLET PO (20:44)
[2020-11-10] MEDS: SENNOSIDES 8.6 MG TABLET 17.2 MG PO (20:44)
[2020-11-10 21:25] LABS: Glucose Point of Care 173 mg/dl (65-105)
[2020-11-10 21:54] LABS: Hepatitis B Surface Anti Res Negative
[2020-11-11] VITALS (18 sets, daily range): BP systolic 88–134; BP diastolic 44–84; PULSE 53–82; RESP 16–18; TEMP 36.4–37; O2SAT 90
[2020-11-11 00:44] LABS: Partial Thromboplastin Time 86.3 SECONDS (22.3-36.8)
[2020-11-11] MEDS: HYDROcodone/acetaminophen (*CRX) 5-325 MG TABLET 1 TAB PO ×2 (05:54→20:12)
[2020-11-11 06:03] LABS: Hematocrit 30.8 % (42.0-52.0); Hemoglobin 9.7 g/dL (14.0-18.0)
[2020-11-11 06:16] LABS: INR 1.7; Prothrombin Time 19.7 Seconds (11.1-14.7)
[2020-11-11 06:59] LABS: Albumin Level 4.3 g/dL (3.5-5.1); Anion Gap 16 mmol/L (8-16); Blood Urea Nitrogen 66 mg/dL (9-20); Calcium 9.5 mg/dL (8.4-10.2); Carbon Dioxide 23 mmol/L (22-30); Chloride 100 mmol/L (98-107); Estimated CRCL calculation 14 ml/min; Estimated Glomerular Filt Rate 12; Glucose 107 mg/dL (65-110); Phosphorus 7.2 mg/dL (2.5-4.5); Potassium 4.1 mmol/L (3.4-5.0); Sodium 139 mmol/L (137-145)
[2020-11-11] MEDS: LACTIC ACID 12% LOTION 225 BTL 1 APPLIC TOPICAL (07:19)
--- NOTE | 2020-11-11 09:08 | WPDANESPN ---
Anes - Prog Note Post-Op Date/Time: 11/11/20 09:08 Cardiovascular status: normal Respiratory status: normal Airway patency: baseline Mental status: baseline Post-Op hydration status: normal Vital Signs: Last Vital Signs Temp 36.9 C 11/11/20 06:00 Pulse 82 11/11/20 06:00 Resp 18 11/11/20 06:00 BP 134/65 11/11/20 06:00 Pulse Ox 90 11/11/20 06:00 Pain Score (VAS): 2 I/O: Intake & Output 11/10/20 11/11/20 11/11/20 23:59 07:59 15:59 Intake Total 320 0 Output Total 2025 300 Balance -1705 -300 Laboratory Tests 11/11/20 05:52 11/11/20 05:52 11/10/20 11/10/20 11/10/20 09:10 11:07 12:27 Hgb Hct PT 21.3 H INR 1.9 APTT 49.6 H Sodium Potassium Chloride Carbon Dioxide Anion Gap BUN Creatinine Estim Creat Clear Calc Estimated GFR Glucose POC Capillary Glucose 101 99 Calcium Phosphorus Albumin Hep Bs Antibody Hep B Core Total Ab 11/10/20 11/10/20 11/10/20 16:49 18:31 19:39 Hgb Hct PT INR APTT 44.9 H Sodium Potassium Chloride Carbon Dioxide Anion Gap BUN Creatinine Estim Creat Clear Calc Estimated GFR Glucose POC Capillary Glucose 115 H Calcium Phosphorus Albumin Hep Bs Antibody Negative Hep B Core Total Ab 11/10/20 11/11/20 11/11/20 21:22 00:11 05:52 Hgb Hct PT INR APTT 86.3 H Sodium 139 Potassium 4.1 Chloride 100 Carbon Dioxide 23 Anion Gap 16 BUN 66 H D Creatinine 4.70 H Estim Creat Clear Calc 14 Estimated GFR 12 L Glucose 107 POC Capillary Glucose 173 H Calcium 9.5 Phosphorus 7.2 H Albumin 4.3 Hep Bs Antibody Hep B Core Total Ab 11/11/20 11/11/20 11/11/20 05:52 05:52 05:52 Hgb 9.7 L Hct 30.8 L PT INR APTT Sodium Potassium Chloride Carbon Dioxide Anion Gap BUN Creatinine Estim Creat Clear Calc Estimated GFR Glucose POC Capillary Glucose Calcium Phosphorus Albumin Hep Bs Antibody Pending Hep B Core Total Ab Pending 11/11/20 05:52 Hgb Hct PT 19.7 H INR 1.7 APTT 85.0 H Sodium Potassium Chloride Carbon Dioxide Anion Gap BUN Creatinine Estim Creat Clear Calc Estimated GFR Glucose POC Capillary Glucose Calcium Phosphorus Albumin Hep Bs Antibody Hep B Core Total Ab Post-procedural complaints: none Patient Feedback: Patient satisfied with anesthetic care.
--- NOTE | 2020-11-11 09:39 | PCPTNOTE ---
Attempted PT reeval. Pt in dialysis. PT was on hold 11/10 due to dialysis catheter placement. Will try again at later time.
[2020-11-11] MEDS: SODIUM CHLORIDE 0.9% IV 1,000 ML 999 ML IV CONT (10:01)
[2020-11-11 10:30] LABS: Hepatitis B Surface Anti Res Negative
--- NOTE | 2020-11-11 11:10 | P.PNNP_ITS ---
Progress Note: A&P Assessment and Plan (1) ANDRADE (acute kidney injury): Code(s): N17.9 - Acute kidney failure, unspecified Status: Acute Assessment and Plan: * ANDRADE * urine electrolytes non pre renal * urine eosinophils negative * ultrasound negative * UA shows blood and leukocytes. Urine culture showed Pseudomonas. * He is on imipenem. * dialysis catheter is in. * he is getting dialysis today. We will skip tomorrow and do him on Friday. (2) Chronic kidney disease, stage IV (severe): Code(s): N18.4 - Chronic kidney disease, stage 4 (severe) Status: Chronic Assessment and Plan: * baseline creatinine ~ 1.6 - 2.1mg/dl since January 2020 * The patient has acute on chronic kidney disease. * Will continue dialysis to get fluid off and see if we can heal all of his wounds. * the patient's blood pressure is low. * His echo shows 4 chamber enlargement with an ejection fraction of only about 30%. This echo was done about a year ago. Will repeat this. * Will check a cortisol level and a TSH level. * Will try midodrine next treatment. (3) Urinary tract infection: Code(s): N39.0 - Urinary tract infection, site not specified Status: Acute Assessment and Plan: * urine culture with Pseudomonas * on antibiotics (4) Hyperkalemia: Code(s): E87.5 - Hyperkalemia Status: Acute Assessment and Plan: * resolved (5) Hypertension: Qualifiers: Hypertension type: unspecified Qualified Code(s): I10 - Essential (primary) hypertension Code(s): I10 - Essential (primary) hypertension Status: Chronic Assessment and Plan: * Blood pressure doing pretty well (6) A-fib: Code(s): I48.91 - Unspecified atrial fibrillation Status: Chronic Assessment and Plan: * He is on metoprolol for rate control. * His blood pressure is a little soft so I am going to change to metoprolol succinate 12.5 mg in the evenings. * on a heparin drip currently and will start Coumadin again tonight (7) Edema: Code(s): R60.9 - Edema, unspecified Status: Acute Assessment and Plan: On Bumex and metolazone Continue this. (8) Rash: Code(s): R21 - Rash and other nonspecific skin eruption Status: Acute Assessment and Plan: apparently chronic. symptomatic tx He still has significant eosinophilia. to see Dermatology as an outpatient Subjective Date/time seen: 11/11/20 11:10 Interval history: patient is alert. He is on dialysis. His blood pressure is a bit soft. We have tried albumin and his systolic blood pressure came up to just about 100. he was seen at 11:00 a.m. Exam Narrative: General: WD/WN male in NAD Heart: irregular rate and rhythm. no rub Lungs: clear bilaterally Abdomen: BS+ nontender and soft Extremities: no cyanosis or clubbing; 2+ edema Skin: chronic venous stasis dermatitis below his knees Objective Data Vital Signs Vital Signs: Vital Signs - 24 hr 11/10/20 11:25 11/10/20 11:39 11/10/20 11:45 Temperature Pulse Rate 76 62 67 Respiratory Rate 21 H 20 20 Blood Pressure 115/64 118/69 124/72 Pulse Oximetry 94 94 94 11/10/20 12:00 11/10/20 12:08 11/10/20 12:30 Temperature 36.6 C Pulse Rate 68 6
--- NOTE | 2020-11-11 11:10 | PM.PNNEP ---
Progress Note: A&P Assessment and Plan (1) ANDRADE (acute kidney injury): Code(s): N17.9 - Acute kidney failure, unspecified Status: Acute Assessment and Plan: ANDRADE urine electrolytes non pre renal urine eosinophils negative ultrasound negative UA shows blood and leukocytes. Urine culture showed Pseudomonas. He is on imipenem. dialysis catheter is in. he is getting dialysis today. We will skip tomorrow and do him on Friday. (2) Chronic kidney disease, stage IV (severe): Code(s): N18.4 - Chronic kidney disease, stage 4 (severe) Status: Chronic Assessment and Plan: baseline creatinine ~ 1.6 - 2.1mg/dl since January 2020 The patient has acute on chronic kidney disease. Will continue dialysis to get fluid off and see if we can heal all of his wounds. the patient's blood pressure is low. His echo shows 4 chamber enlargement with an ejection fraction of only about 30%. This echo was done about a year ago. Will repeat this. Will check a cortisol level and a TSH level. Will try midodrine next treatment. (3) Urinary tract infection: Code(s): N39.0 - Urinary tract infection, site not specified Status: Acute Assessment and Plan: urine culture with Pseudomonas on antibiotics (4) Hyperkalemia: Code(s): E87.5 - Hyperkalemia Status: Acute Assessment and Plan: resolved (5) Hypertension: Qualifiers: Hypertension type: unspecified Qualified Code(s): I10 - Essential (primary) hypertension Code(s): I10 - Essential (primary) hypertension Status: Chronic Assessment and Plan: Blood pressure doing pretty well (6) A-fib: Code(s): I48.91 - Unspecified atrial fibrillation Status: Chronic Assessment and Plan: He is on metoprolol for rate control. His blood pressure is a little soft so I am going to change to metoprolol succinate 12.5 mg in the evenings. on a heparin drip currently and will start Coumadin again tonight (7) Edema: Code(s): R60.9 - Edema, unspecified Status: Acute Assessment and Plan: On Bumex and metolazone Continue this. (8) Rash: Code(s): R21 - Rash and other nonspecific skin eruption Status: Acute Assessment and Plan: apparently chronic. symptomatic tx He still has significant eosinophilia. to see Dermatology as an outpatient Subjective Date/time seen: 11/11/20 11:10 Interval history: patient is alert. He is on dialysis. His blood pressure is a bit soft. We have tried albumin and his systolic blood pressure came up to just about 100. he was seen at 11:00 a.m. Exam Narrative: General: WD/WN male in NAD Heart: irregular rate and rhythm. no rub Lungs: clear bilaterally Abdomen: BS+ nontender and soft Extremities: no cyanosis or clubbing; 2+ edema Skin: chronic venous stasis dermatitis below his knees Objective Data Vital Signs Vital Signs: Vital Signs - 24 hr 11/10/20 11:25 11/10/20 11:39 11/10/20 11:45 Temperature Pulse Rate 76 62 67 Respiratory Rate 21 H 20 20 Blood Pressure 115/64 118/69 124/72 Pulse Oximetry 94 94 94 11/10/20 12:00 11/10/20 12:08 11/10/20 12:30 Temperature 36.6 C Pulse Rate 68 66 66 Respiratory Rate 20 18 20 Blood Pressure 111/74 126/64 123/63 Pulse Oximetry 94 95 95 11/10/20 13:42 11/10/20 15:22 11/10/20 16:10 Temperature 36.7 C 36.8 C Pulse Rate 72 75 71 Respiratory Rate 18 21 H Blood Pressure 130/69 140/71 Pulse Oximetry 93 11/10/20 16:18 11/10/20 16:30 11/10/20 16:45 Temperature Pulse Rate 71 66 82 Respiratory Rate Blood Pressure 148/77 H 138/66 137/70 Pulse Oximetry 11/10/20 17:00 11/10/20 17:15 11/10/20 17:30 Temperature Pulse Rate 84 92 68 Respiratory Rate Blood Pressure 118/65 130/58 L 130/65 Pulse Oximetry 11/10/20 18:00 11/10/20 18:15 11/10/20
[2020-11-11] MEDS: ALBUMIN HUMAN 25% 12.5 GM/50ML 50 ML IVPB ×2 (11:17→11:33)
[2020-11-11 11:19] LABS: Glucose Point of Care 106 mg/dl (65-105)
[2020-11-11 11:59] LABS: Glucose Point of Care 124 mg/dl (65-105)
--- NOTE | 2020-11-11 12:33 | PM.PNCARD ---
Progress Note: A&P Additional Plan 74-year-old man with: Coronary artery disease valvular heart disease previous bypass grafting and mechanical aortic valve replacement. Patient into the hospital with volume overload and has progressed to end-stage renal failure. Now being dialyzed and is clinically stable today. The patient had been on Entresto because of hyperkalemia with his renal failure. I am going to resume that at this point since he is now receiving dialysis and potassium can't be controlled with that. Warfarin has been resumed to start again this evening. Alton Anne MD [facility] Subjective Date/time seen: date of service:11/11/20 12:33 Interval history: 74-year-old man with: Valvular heart disease, coronary artery disease remote history of CABG and aortic valve replacement with a mechanical prosthesis. Patient enters the hospital with volume overload has a complex situation with left ventricular systolic dysfunction as well as development of end-stage renal disease. Dialysis catheter was placed Friday and the patient now is on renal replacement therapy. He appears to be relatively comfortable this afternoon. Discussed resuming Entresto now that he has on dialysis. The patient and his seemed to be surprised and a bit taken aback by my conversation that he has a significantly weakened heart. Despite his extensive history it seems that they did not have a good understanding of this situation Exam Const: General: comfortable HENMT: Mouth: Yes moist mucous membranes Eyes: Sclera: sclerae normal Pupils: Equal, round and reactive pupils present Neck: Neck: supple and no JVD Thyroid: thyroid normal Resp: Effort & Inspection: normal respiratory effort Other: patient has pulmonary rales about 1/3 up bilaterally Cardio: Rate: regular rate Rhythm: regular rhythm Other: normal crisp aortic valve closure sound noted GI: GI Palp: Yes Soft to palpation Auscultation: normal bowel sounds Skin: General skin exam: normal color Neuro: Cognition (Neuro): normal cognition Extrem: General: normal to inspection Objective Data Vital Signs Vital Signs: Vital Signs - 24 hr 11/10/20 13:42 11/10/20 15:22 11/10/20 16:10 Temperature 36.7 C 36.8 C Pulse Rate 72 75 71 Respiratory Rate 18 21 H Blood Pressure 130/69 140/71 Pulse Oximetry 93 11/10/20 16:18 11/10/20 16:30 11/10/20 16:45 Temperature Pulse Rate 71 66 82 Respiratory Rate Blood Pressure 148/77 H 138/66 137/70 Pulse Oximetry 11/10/20 17:00 11/10/20 17:15 11/10/20 17:30 Temperature Pulse Rate 84 92 68 Respiratory Rate Blood Pressure 118/65 130/58 L 130/65 Pulse Oximetry 11/10/20 18:00 11/10/20 18:15 11/10/20 18:25 Temperature 36.6 C Pulse Rate 80 80 87 Respiratory Rate 20 Blood Pressure 140/67 147/69 H 148/86 H Pulse Oximetry 11/10/20 20:00 11/10/20 20:43 11/10/20 22:00 Temperature 37.1 C Pulse Rate 73 87 73 Respiratory Rate 18 18 Blood Pressure 143/76 H Pulse Oximetry 95 95 11/11/20 06:00 11/11/20 09:10 11/11/20 09:14 Temperature 36.9 C 36.5 C Pulse Rate 82 67 70 Respiratory Rate 18 18 Blood Pressure 134/65 119/66 114/52 L Pulse Oximetry 90 11/11/20 09:30 11/11/20 09:45 11/11/20 10:00 Temperature Pulse Rate 68 77 75 Respiratory Rate Blood Pressure 93/45 L 94/49 L 105/52 L Pulse Oximetry 11/11/20 10:15 11/11/20 10:30 11/11/20 10:45 Temperature Pulse Rate 53 L 70 70 Respiratory Rate Blood Pressure 100/44 L 112/58 L 102/56 L Pulse Oximetry 11/11/20 11:00 11/11/20 11:05 11/11/20 11:08 Temperature Pulse Rate 67 74 72 Respiratory Rate Blood Pressure 88/48 L 99/58 L 104/74 Pulse Oximetry 11/11/20 11:15 Temperature Pulse Rate 73 Respiratory Rate Blood Pressure 121/60 Pulse Oximetry Intake/Output Intake/Output: Intake & Output 11/08/20 11/09/20 11/10/20 11/11/20 23:59 23:59 23:59 23:59 Intake Total
[2020-11-11] MEDS: PANTOPRAZOLE 40 MG TABLET PO (12:42)
[2020-11-11] MEDS: DULoxetine HCL 30 MG CAPSULE.DR PO (12:44)
[2020-11-11] MEDS: ASCORBIC ACID 500 MG TABLET PO ×2 (12:44→18:17)
[2020-11-11] MEDS: BUMETANIDE 1 MG TABLET 2 MG PO (12:44)
[2020-11-11] MEDS: TAMSULOSIN HCL 0.4 MG CAPSULE PO (12:44)
[2020-11-11] MEDS: PREGABALIN (*CRX) 75 MG CAPSULE PO ×2 (12:44→18:15)
[2020-11-11] MEDS: metOLazone 5 MG TABLET PO (12:44)
[2020-11-11] MEDS: FINASTERIDE 5 MG TABLET PO (12:45)
[2020-11-11] MEDS: MAGNESIUM OXIDE 200 MG TABLET PO ×2 (12:45→20:14)
[2020-11-11] MEDS: FERROUS SULFATE 324 MG TABLET PO (12:45)
[2020-11-11] MEDS: guaiFENesin/DEXTROMETHORPHAN 10 ML UDC 5 ML PO ×2 (12:46→18:15)
--- NOTE | 2020-11-11 14:30 | P.PNIM_ITS ---
Progress Note: A&P Assessment and Plan (1) ANDRADE (acute kidney injury): Code(s): N17.9 - Acute kidney failure, unspecified Status: Acute Assessment and Plan: * s/p right IJ dialysis catheter placement by Dr Hart 11/10/20. Had dialysis yesterday and today, tolerating well. * Cr improved some after dialysis. * Appreciate nephrology recommendations. Remains on Bumex and metolazone. * Renal US unremarkable. Renal biopsy 08/07/20 which showed acute tubular injury. (2) Chronic anticoagulation: Code(s): Z79.01 - [facility] (current) use of anticoagulants Status: Acute Assessment and Plan: * Patient has a mechanical aortic valve maintained on long-term anticoagulation with Warfarin. * Heparin gtt was initiated 11/08 in order to keep him anticoagulated while we held warfarin for his surgery. * INR 1.7 this AM. Received FFP early AM 11/10 prior to his procedure. * Monitor INR daily. Resume warfarin this evening which I discussed with Dr Hart. (3) Anemia in CKD (chronic kidney disease): Qualifiers: Chronic kidney disease stage: unspecified stage Qualified Code(s): N18.9 - Chronic kidney disease, unspecified; D63.1 - Anemia in chronic kidney disease Code(s): N18.9 - Chronic kidney disease, unspecified; D63.1 - Anemia in chronic kidney disease Status: Acute Assessment and Plan: * Hgb remains low but stable without evidence of acute bleeding. Transfused 2 units pRBC 11/02. * Suspect related to anemia of CKD and other comorbid conditions. Also with positive occult blood in stool * Bone marrow biopsy July 2020 consistent with multiple myeloma however not requiring tx at this time. Previous provider discussed with oncologist Dr. Nowak. * Monitor CBC and transfuse prn. Continue PO iron supplementation * Received 20,000 units Epogen 11/02. F/u with Dr. Nowak in 2 weeks for repeat Epogen injection (4) CHF (congestive heart failure): Qualifiers: Heart failure chronicity: acute on chronic Heart failure type: unspecified Qualified Code(s): I50.9 - Heart failure, unspecified Code(s): I50.9 - Heart failure, unspecified Status: Chronic Assessment and Plan: * Hopeful volume status will improve with initiation of dialysis. * CXR with cardiomegaly, congestion, likely pulmonary edema and with complaints of scrotal edema * Echo with reduced EF 30-35% * Remains on oral bumex and metolazone. Continue fluid restriction and monitor I&Os. * Appreciate cardiology input. Dr Anne has resumed Entresto today. (5) Urinary tract infection in male: Code(s): N39.0 - Urinary tract infection, site not specified Status: Acute Assessment and Plan: * Urine culture grew Pseudomonas. He completed 7-day course of imipenem on 11/03/20. Blood cultures negative. (6) Occult blood in stools: Code(s): R19.5 - Other fecal abnormalities Status: Acute Assessment and Plan: * Occult blood positive on 07/16/2020 and 11/02/2020. He is otherwise asymptomatic without melena or hematochezia * Continue Protonix * Recommend outpatient GI follow-up for EGD and possibly colonoscopy. Consider inpatient consult if modest decline in H&H (7) Atrial fibrillation: Qualifiers: Atrial fibrillation type: unspecified Qualified Code(s): I48.91 - Unspecifie
--- NOTE | 2020-11-11 14:30 | PM.IMPN ---
Progress Note: A&P Assessment and Plan (1) ANDRDAE (acute kidney injury): Code(s): N17.9 - Acute kidney failure, unspecified Status: Acute Assessment and Plan: s/p right IJ dialysis catheter placement by Dr Hart 11/10/20. Had dialysis yesterday and today, tolerating well. Cr improved some after dialysis. Appreciate nephrology recommendations. Remains on Bumex and metolazone. Renal US unremarkable. Renal biopsy 08/07/20 which showed acute tubular injury. (2) Chronic anticoagulation: Code(s): Z79.01 - [facility] (current) use of anticoagulants Status: Acute Assessment and Plan: Patient has a mechanical aortic valve maintained on long-term anticoagulation with Warfarin. Heparin gtt was initiated 11/08 in order to keep him anticoagulated while we held warfarin for his surgery. INR 1.7 this AM. Received FFP early AM 11/10 prior to his procedure. Monitor INR daily. Resume warfarin this evening which I discussed with Dr Hart. (3) Anemia in CKD (chronic kidney disease): Qualifiers: Chronic kidney disease stage: unspecified stage Qualified Code(s): N18.9 - Chronic kidney disease, unspecified; D63.1 - Anemia in chronic kidney disease Code(s): N18.9 - Chronic kidney disease, unspecified; D63.1 - Anemia in chronic kidney disease Status: Acute Assessment and Plan: Hgb remains low but stable without evidence of acute bleeding. Transfused 2 units pRBC 11/02. Suspect related to anemia of CKD and other comorbid conditions. Also with positive occult blood in stool Bone marrow biopsy July 2020 consistent with multiple myeloma however not requiring tx at this time. Previous provider discussed with oncologist Dr. Nowak. Monitor CBC and transfuse prn. Continue PO iron supplementation Received 20,000 units Epogen 11/02. F/u with Dr. Nowak in 2 weeks for repeat Epogen injection (4) CHF (congestive heart failure): Qualifiers: Heart failure chronicity: acute on chronic Heart failure type: unspecified Qualified Code(s): I50.9 - Heart failure, unspecified Code(s): I50.9 - Heart failure, unspecified Status: Chronic Assessment and Plan: Hopeful volume status will improve with initiation of dialysis. CXR with cardiomegaly, congestion, likely pulmonary edema and with complaints of scrotal edema Echo with reduced EF 30-35% Remains on oral bumex and metolazone. Continue fluid restriction and monitor I&Os. Appreciate cardiology input. Dr Anne has resumed Entresto today. (5) Urinary tract infection in male: Code(s): N39.0 - Urinary tract infection, site not specified Status: Acute Assessment and Plan: Urine culture grew Pseudomonas. He completed 7-day course of imipenem on 11/03/20. Blood cultures negative. (6) Occult blood in stools: Code(s): R19.5 - Other fecal abnormalities Status: Acute Assessment and Plan: Occult blood positive on 07/16/2020 and 11/02/2020. He is otherwise asymptomatic without melena or hematochezia Continue Protonix Recommend outpatient GI follow-up for EGD and possibly colonoscopy. Consider inpatient consult if modest decline in H&H (7) Atrial fibrillation: Qualifiers: Atrial fibrillation type: unspecified Qualified Code(s): I48.91 - Unspecified atrial fibrillation Code(s): I48.91 - Unspecified atrial fibrillation Status: Chronic Assessment and Plan: Rate controlled. Continue home metoprolol. Heparin gtt + warfarin resumed this evening. (8) Hypertension: Qualifiers: Hypertension type: unspecified Qualified Code(s): I10 - Essential (primary) hype
[2020-11-11] MEDS: ONDANSETRON INJ 4 MG/2 ML VIAL IV PUSH (18:12)
[2020-11-11] MEDS: WARFARIN (*PBKC) 3 MG TABLET PO (18:17)
[2020-11-11] MEDS: METOPROLOL SUCCINATE EXT REL 12.5 MG TABCR PO (18:18)
[2020-11-11] MEDS: CENTRAL LINE FLUSH 10 ML IV PUSH (18:18)
[2020-11-11] MEDS: HEPARIN SOD/D5W 100 UNITS/ML 25,000 UNITS/250 ML BAG 8 UNITS IV CONT (18:20)
[2020-11-11 18:34] LABS: Glucose Point of Care 124 mg/dl (65-105)
[2020-11-11] MEDS: SENNOSIDES 8.6 MG TABLET 17.2 MG PO (20:13)
[2020-11-11] MEDS: ATORVASTATIN 40 MG TABLET PO (20:14)
[2020-11-11] MEDS: traZODone HCL 25 MG TABLET PO (20:14)
[2020-11-11] MEDS: SACUBITRIL/VALSARTAN 24-26 MG TABLET 1 TAB PO (20:14)
[2020-11-11] MEDS: MELATONIN 3 MG TABLET 6 MG PO (20:15)
[2020-11-11 20:59] LABS: Glucose Point of Care 114 mg/dl (65-105)
[2020-11-11] MEDS: diphenhydrAMINE HCl CAP 25 MG CAPSULE PO (23:20)
[2020-11-12 06:00] VITALS: BP 90/48; PULSE 81; RESP 18; TEMP 36.5; O2SAT 97
[2020-11-12 06:04] LABS: Hematocrit 31.4 % (42.0-52.0); Hemoglobin 9.5 g/dL (14.0-18.0); Immature Platelet Fraction Pct 9.9 % (0.9-11.2); Mean Corpuscular HGB Conc 30.3 g/dl (32-36); Mean Corpuscular Hemoglobin 26.8 pg (26-34); Mean Corpuscular Volume 88.5 fl (80-100); Mean Platelet Volume 11.7 fl (7.4-10.4); Platelet Count Result 68 k/mm3 (150-375); Red Blood Count 3.55 M/mm3 (4.6-6.20); Red Cell Distribution Width 17.7 % (11.5-14.5)
[2020-11-12 06:14] LABS: INR 1.7; Prothrombin Time 19.3 Seconds (11.1-14.7)
[2020-11-12 06:16] LABS: Partial Thromboplastin Time 86.2 SECONDS (22.3-36.8)
[2020-11-12 06:56] LABS: Albumin Level 4.3 g/dL (3.5-5.1); Anion Gap 14 mmol/L (8-16); Blood Urea Nitrogen 47 mg/dL (9-20); Calcium 9.6 mg/dL (8.4-10.2); Carbon Dioxide 26 mmol/L (22-30); Chloride 101 mmol/L (98-107); Estimated CRCL calculation 14 ml/min; Estimated Glomerular Filt Rate 12; Glucose 96 mg/dL (65-110); Phosphorus 6.9 mg/dL (2.5-4.5); Potassium 3.8 mmol/L (3.4-5.0); Sodium 141 mmol/L (137-145)
[2020-11-12 07:56] LABS: Glucose Point of Care 103 mg/dl (65-105)
[2020-11-12] MEDS: metOLazone 5 MG TABLET PO (09:08)
[2020-11-12] MEDS: guaiFENesin/DEXTROMETHORPHAN 10 ML UDC 5 ML PO ×2 (09:08→17:34)
[2020-11-12] MEDS: MAGNESIUM OXIDE 200 MG TABLET PO ×2 (09:08→23:03)
[2020-11-12] MEDS: DULoxetine HCL 30 MG CAPSULE.DR PO (09:08)
[2020-11-12] MEDS: FERROUS SULFATE 324 MG TABLET PO (09:08)
[2020-11-12] MEDS: ASCORBIC ACID 500 MG TABLET PO ×2 (09:08→17:34)
[2020-11-12] MEDS: PANTOPRAZOLE 40 MG TABLET PO (09:08)
[2020-11-12] MEDS: SACUBITRIL/VALSARTAN 24-26 MG TABLET 1 TAB PO ×2 (09:08→23:04)
[2020-11-12] MEDS: FINASTERIDE 5 MG TABLET PO (09:09)
[2020-11-12] MEDS: BUMETANIDE 1 MG TABLET 2 MG PO (09:09)
[2020-11-12] MEDS: TAMSULOSIN HCL 0.4 MG CAPSULE PO (09:09)
[2020-11-12] MEDS: PREGABALIN (*CRX) 75 MG CAPSULE PO ×2 (09:10→17:34)
[2020-11-12] MEDS: HYDROcodone/acetaminophen (*CRX) 5-325 MG TABLET 1 TAB PO ×2 (09:10→13:20)
[2020-11-12] MEDS: LACTIC ACID 12% LOTION 225 BTL 1 APPLIC TOPICAL (09:14)
--- NOTE | 2020-11-12 10:10 | P.PNNP_ITS ---
Progress Note: A&P Assessment and Plan (1) ANDRADE (acute kidney injury): Code(s): N17.9 - Acute kidney failure, unspecified Status: Acute Assessment and Plan: * ANDRADE * urine electrolytes non pre renal * urine eosinophils negative * ultrasound negative * UA shows blood and leukocytes. Urine culture showed Pseudomonas. * He is on imipenem. * dialysis catheter is in. * he received dialysis Friday and Friday. He will get another treatment tomorrow. (2) Chronic kidney disease, stage IV (severe): Code(s): N18.4 - Chronic kidney disease, stage 4 (severe) Status: Chronic Assessment and Plan: * baseline creatinine ~ 1.6 - 2.1mg/dl since January 2020 * The patient has acute on chronic kidney disease. * Will continue dialysis to get fluid off and see if we can heal all of his wounds. * the patient's blood pressure is low. * His echo shows 4 chamber enlargement with an ejection fraction of only about 30%. This echo was done about a year ago. Will repeat this. * Will check a cortisol level and a TSH level. * Will try midodrine next treatment. (3) Urinary tract infection: Code(s): N39.0 - Urinary tract infection, site not specified Status: Acute Assessment and Plan: * urine culture with Pseudomonas * on antibiotics (4) Hyperkalemia: Code(s): E87.5 - Hyperkalemia Status: Acute Assessment and Plan: * resolved (5) Hypertension: Qualifiers: Hypertension type: unspecified Qualified Code(s): I10 - Essential (primary) hypertension Code(s): I10 - Essential (primary) hypertension Status: Chronic Assessment and Plan: * Blood pressure doing pretty well (6) A-fib: Code(s): I48.91 - Unspecified atrial fibrillation Status: Chronic Assessment and Plan: * He is on metoprolol for rate control. * His blood pressure is a little soft so I am going to change to metoprolol succinate 12.5 mg in the evenings. * on a heparin drip currently and will start Coumadin again tonight (7) Edema: Code(s): R60.9 - Edema, unspecified Status: Acute Assessment and Plan: On Bumex and metolazone Continue this. (8) Rash: Code(s): R21 - Rash and other nonspecific skin eruption Status: Acute Assessment and Plan: apparently chronic. symptomatic tx He still has significant eosinophilia. to see Dermatology as an outpatient Subjective Date/time seen: 11/12/20 10:10 Interval history: patient is alert. He feels okay. Scrotum is better. Still has swelling on his legs Exam Narrative: General: WD/WN male in NAD Heart: irregular rate and rhythm. no rub Lungs: clear bilaterally Abdomen: BS+ nontender and soft Extremities: no cyanosis or clubbing; 2+ edema Skin: chronic venous stasis dermatitis below his knees Objective Data Vital Signs Vital Signs: Vital Signs - 24 hr 11/11/20 10:15 11/11/20 10:30 11/11/20 10:45 Temperature Pulse Rate 53 L 70 70 Respiratory Rate Blood Pressure 100/44 L 112/58 L 102/56 L Pulse Oximetry 11/11/20 11:00 11/11/20 11:05 11/11/20 11:08 Temperature Pulse Rate 67 74 72 Respiratory Rate Blood Pressure 88/48 L 99/58 L 104
--- NOTE | 2020-11-12 10:10 | PM.PNNEP ---
Progress Note: A&P Assessment and Plan (1) ANDRADE (acute kidney injury): Code(s): N17.9 - Acute kidney failure, unspecified Status: Acute Assessment and Plan: ANDRADE urine electrolytes non pre renal urine eosinophils negative ultrasound negative UA shows blood and leukocytes. Urine culture showed Pseudomonas. He is on imipenem. dialysis catheter is in. he received dialysis Friday and Friday. He will get another treatment tomorrow. (2) Chronic kidney disease, stage IV (severe): Code(s): N18.4 - Chronic kidney disease, stage 4 (severe) Status: Chronic Assessment and Plan: baseline creatinine ~ 1.6 - 2.1mg/dl since January 2020 The patient has acute on chronic kidney disease. Will continue dialysis to get fluid off and see if we can heal all of his wounds. the patient's blood pressure is low. His echo shows 4 chamber enlargement with an ejection fraction of only about 30%. This echo was done about a year ago. Will repeat this. Will check a cortisol level and a TSH level. Will try midodrine next treatment. (3) Urinary tract infection: Code(s): N39.0 - Urinary tract infection, site not specified Status: Acute Assessment and Plan: urine culture with Pseudomonas on antibiotics (4) Hyperkalemia: Code(s): E87.5 - Hyperkalemia Status: Acute Assessment and Plan: resolved (5) Hypertension: Qualifiers: Hypertension type: unspecified Qualified Code(s): I10 - Essential (primary) hypertension Code(s): I10 - Essential (primary) hypertension Status: Chronic Assessment and Plan: Blood pressure doing pretty well (6) A-fib: Code(s): I48.91 - Unspecified atrial fibrillation Status: Chronic Assessment and Plan: He is on metoprolol for rate control. His blood pressure is a little soft so I am going to change to metoprolol succinate 12.5 mg in the evenings. on a heparin drip currently and will start Coumadin again tonight (7) Edema: Code(s): R60.9 - Edema, unspecified Status: Acute Assessment and Plan: On Bumex and metolazone Continue this. (8) Rash: Code(s): R21 - Rash and other nonspecific skin eruption Status: Acute Assessment and Plan: apparently chronic. symptomatic tx He still has significant eosinophilia. to see Dermatology as an outpatient Subjective Date/time seen: 11/12/20 10:10 Interval history: patient is alert. He feels okay. Scrotum is better. Still has swelling on his legs Exam Narrative: General: WD/WN male in NAD Heart: irregular rate and rhythm. no rub Lungs: clear bilaterally Abdomen: BS+ nontender and soft Extremities: no cyanosis or clubbing; 2+ edema Skin: chronic venous stasis dermatitis below his knees Objective Data Vital Signs Vital Signs: Vital Signs - 24 hr 11/11/20 10:15 11/11/20 10:30 11/11/20 10:45 Temperature Pulse Rate 53 L 70 70 Respiratory Rate Blood Pressure 100/44 L 112/58 L 102/56 L Pulse Oximetry 11/11/20 11:00 11/11/20 11:05 11/11/20 11:08 Temperature Pulse Rate 67 74 72 Respiratory Rate Blood Pressure 88/48 L 99/58 L 104/74 Pulse Oximetry 11/11/20 11:15 11/11/20 11:30 11/11/20 11:46 Temperature Pulse Rate 73 62 Respiratory Rate Blood Pressure 121/60 115/54 L 117/84 Pulse Oximetry 11/11/20 11:55 11/11/20 20:00 11/11/20 22:00 Temperature 36.4 C L 36.6 C Pulse Rate 62 77 77 Respiratory Rate 16 18 18 Blood Pressure 120/62 90/58 L Pulse Oximetry 90 90 11/12/20 06:00 Temperature 36.5 C Pulse Rate 81 Respiratory Rate 18 Blood Pressure 90/48 L Pulse Oximetry 97 Intake/Output Intake/Output: Intake & Output 11/09/20 11/10/20 11/11/20 11/12/20 23:59 23:59 23:59 23:59 Intake Total 1860 1429 490 620 Output Total 1350 3025 3150 100 Balance 510
[2020-11-12 11:27] LABS: Glucose Point of Care 146 mg/dl (65-105)
[2020-11-12 12:00] VITALS: BP 95/48; PULSE 72; RESP 16; TEMP 36.4; O2SAT 95
--- NOTE | 2020-11-12 12:01 | P.PNIM_ITS ---
Progress Note: A&P Assessment and Plan (1) ANDRADE (acute kidney injury): Code(s): N17.9 - Acute kidney failure, unspecified Status: Acute Assessment and Plan: * s/p right IJ dialysis catheter placement by Dr Hart 11/10/20. Had dialysis Friday and Friday.. * Cr improved some after dialysis. * Appreciate nephrology recommendations. Remains on Bumex and metolazone. * Renal US unremarkable. Renal biopsy 08/07/20 which showed acute tubular injury. 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 * Heparin gtt was initiated 11/08 in order to keep him anticoagulated while we held warfarin for his surgery. * INR 1.7 this AM. Received FFP early AM 11/10 prior to his procedure. * Monitor INR daily. Warfarin resumed 11/11, continue. (3) Anemia in CKD (chronic kidney disease): Qualifiers: Chronic kidney disease stage: unspecified stage Qualified Code(s): N18.9 - Chronic kidney disease, unspecified; D63.1 - Anemia in chronic kidney disease Code(s): N18.9 - Chronic kidney disease, unspecified; D63.1 - Anemia in chronic kidney disease Status: Acute Assessment and Plan: * Hgb remains low but stable without evidence of acute bleeding. Transfused 2 units pRBC 11/02. * Suspect related to anemia of CKD and other comorbid conditions. Also with positive occult blood in stool * Bone marrow biopsy July 2020 consistent with multiple myeloma however not requiring tx at this time. Previous provider discussed with oncologist Dr. Nowak. * Monitor CBC and transfuse prn. Continue PO iron supplementation * Received 20,000 units Epogen 11/02. F/u with Dr. Eliu in 2 weeks for repeat Epogen injection (4) CHF (congestive heart failure): Qualifiers: Heart failure chronicity: acute on chronic Heart failure type: unspecified Qualified Code(s): I50.9 - Heart failure, unspecified Code(s): I50.9 - Heart failure, unspecified Status: Chronic Assessment and Plan: * Hopeful volume status will improve with initiation of dialysis. Still with rales on exam today. * CXR with cardiomegaly, congestion, likely pulmonary edema and with complaints of scrotal edema * Echo with reduced EF 30-35% * Remains on oral bumex and metolazone. Monitor I&Os. * Appreciate cardiology input. Cardiology resumed Entresto 11/11. (5) Urinary tract infection in male: Code(s): N39.0 - Urinary tract infection, site not specified Status: Acute Assessment and Plan: * Urine culture grew Pseudomonas. He completed 7-day course of imipenem on 11/03/20. Blood cultures negative. (6) Occult blood in stools: Code(s): R19.5 - Other fecal abnormalities Status: Acute Assessment and Plan: * Occult blood positive on 07/16/2020 and 11/02/2020. He is otherwise asymptomatic without melena or hematochezia * Continue Protonix * Recommend outpatient GI follow-up for EGD and possibly colonoscopy. Consider inpatient consult if modest decline in H&H (7) Atrial fibrillation: Qualifiers: Atrial fibrillation type: unspecified Qualified Code(s): I48.91
--- NOTE | 2020-11-12 12:01 | PM.IMPN ---
Progress Note: A&P Assessment and Plan (1) ANDRADE (acute kidney injury): Code(s): N17.9 - Acute kidney failure, unspecified Status: Acute Assessment and Plan: s/p right IJ dialysis catheter placement by Dr Hart 11/10/20. Had dialysis Friday and Friday.. Cr improved some after dialysis. Appreciate nephrology recommendations. Remains on Bumex and metolazone. Renal US unremarkable. Renal biopsy 08/07/20 which showed acute tubular injury. Blood pressures on lower end with dizziness, monitor vital signs Q4hr (2) Chronic anticoagulation: Code(s): Z79.01 - assisted (current) use of anticoagulants Status: Acute Assessment and Plan: Patient has a mechanical aortic valve maintained on long-term anticoagulation with Warfarin. Heparin gtt was initiated 11/08 in order to keep him anticoagulated while we held warfarin for his surgery. INR 1.7 this AM. Received FFP early AM 11/10 prior to his procedure. Monitor INR daily. Warfarin resumed 11/11, continue. (3) Anemia in CKD (chronic kidney disease): Qualifiers: Chronic kidney disease stage: unspecified stage Qualified Code(s): N18.9 - Chronic kidney disease, unspecified; D63.1 - Anemia in chronic kidney disease Code(s): N18.9 - Chronic kidney disease, unspecified; D63.1 - Anemia in chronic kidney disease Status: Acute Assessment and Plan: Hgb remains low but stable without evidence of acute bleeding. Transfused 2 units pRBC 11/02. Suspect related to anemia of CKD and other comorbid conditions. Also with positive occult blood in stool Bone marrow biopsy July 2020 consistent with multiple myeloma however not requiring tx at this time. Previous provider discussed with oncologist Dr. Nowak. Monitor CBC and transfuse prn. Continue PO iron supplementation Received 20,000 units Epogen 11/02. F/u with Dr. Nowak in 2 weeks for repeat Epogen injection (4) CHF (congestive heart failure): Qualifiers: Heart failure chronicity: acute on chronic Heart failure type: unspecified Qualified Code(s): I50.9 - Heart failure, unspecified Code(s): I50.9 - Heart failure, unspecified Status: Chronic Assessment and Plan: Hopeful volume status will improve with initiation of dialysis. Still with rales on exam today. CXR with cardiomegaly, congestion, likely pulmonary edema and with complaints of scrotal edema Echo with reduced EF 30-35% Remains on oral bumex and metolazone. Monitor I&Os. Appreciate cardiology input. Cardiology resumed Entresto 11/11. (5) Urinary tract infection in male: Code(s): N39.0 - Urinary tract infection, site not specified Status: Acute Assessment and Plan: Urine culture grew Pseudomonas. He completed 7-day course of imipenem on 11/03/20. Blood cultures negative. (6) Occult blood in stools: Code(s): R19.5 - Other fecal abnormalities Status: Acute Assessment and Plan: Occult blood positive on 07/16/2020 and 11/02/2020. He is otherwise asymptomatic without melena or hematochezia Continue Protonix Recommend outpatient GI follow-up for EGD and possibly colonoscopy. Consider inpatient consult if modest decline in H&H (7) Atrial fibrillation: Qualifiers: Atrial fibrillation type: unspecified Qualified Code(s): I48.91 - Unspecified atrial fibrillation Code(s): I48.91 - Unspecified atrial fibrillation Status: Chronic Assessment and Plan: Rate controlled. Continue home metoprolol. Warfarin resumed 11/11; remains on heparin gtt until INR is within goal range. (8) Hypertension: Qualifiers: Hypertension type: unspecified
--- NOTE | 2020-11-12 12:49 | PCPTNOTE ---
Attempted to see patient this AM for PT treatment. Pt. was eating and asked for therapy to come back later. Attempted to see pt. at 12:45pm and patient reported he was not able to do therapy because he wasn't feeling well. Pt reported that his back was hurting at a 6/10. Nursing was notified.
--- NOTE | 2020-11-12 13:28 | PM.PNCARD ---
Progress Note: A&P Additional Plan Rather complicated situation in this patient with valvular heart disease, left ventricular systolic dysfunction and now with end-stage renal disease having been started on dialysis. Resumed Entresto yesterday I hope that he will continue to tolerate this because of his low ejection fraction. Coumadin has now been restarted. I am not going to adjust his cardiac regimen any further at this time. Following discharge plans are for him to follow up with his established physicians over at [facility] Subjective Date/time seen: date of service:11/12/20 13:28 Interval history: 74-year-old man with: Valvular heart disease, coronary artery disease remote history of CABG and aortic valve replacement with a mechanical prosthesis. Patient enters the hospital with volume overload has a complex situation with left ventricular systolic dysfunction as well as development of end-stage renal disease. Dialysis catheter was placed Friday and the patient now is on renal replacement therapy. He appears to be relatively comfortable this afternoon. Discussed resuming Entresto now that he has on dialysis. The patient and his seemed to be surprised and a bit taken aback by my conversation that he has a significantly weakened heart. Despite his extensive history it seems that they did not have a good understanding of this situation Date of service 11/12/2020: Patient in no distress this afternoon eating his lunch. States he feels a bit lightheaded which certainly could be due to the reinstitution of Entresto yesterday however chart does not show any evidence of problematic hypotension other than when he is on dialysis. Exam Narrative: PHYSICAL EXAMINATION: GENERAL: week, ill-appearing male, Alert, oriented, no acute distress MENTAL STATUS: affect appropriate to mood EYES: Extraocular movements intact, pallor EARS: External ears appear normal, hearing grossly normal NOSE: Normal and patent, no discharge MOUTH: Mucous membranes moist, tongue normal NECK: Supple, no JVD CHEST: scattered crackles HEART: normal rate, irregular rhythm, variable S1, mechanical S2 ABDOMEN: Soft, nontender NEUROLOGICAL: Alert, speech is coherent MUSCULOSKELETAL: No major deformity, no amputation EXTREMITIES: bilateral pedal edema, compression dressing in place SKIN: graft patches in the back of chest; ulcers in the legs PSYCHIATRIC: Normal mood, appropriate affect Const: General: comfortable and no acute distress; No confusion Orientation/consciousness: No confusion HENMT: Head: normal to inspection Mouth: Yes moist mucous membranes Eyes: General: appearance normal, both eyes and all related structures Sclera: sclerae normal Pupils: Equal, round and reactive pupils present Neck: Neck: supple and no JVD Thyroid: thyroid normal Resp: Effort & Inspection: normal respiratory effort Auscultation: crackles (bases) bilateral Other: patient has pulmonary rales about 1/3 up bilaterally Cardio: Rate: regular rate Rhythm: regular rhythm and abnormal rhythm irregularly irregular Heart sounds: Other heart sounds present ( Normal mechanical clicks of mitral valve) Other: normal crisp aortic valve closure sound noted GI: Auscultation: normal bowel sounds Skin: General skin exam: normal color, purpura ( rash in the lower limbs suspect subcutaneous bleed spots) and other Wounds: wounds noted Neuro: General: No confusion Cranial nerves: Yes Equal, round and reactive pupils present and Yes Normal hearing present Cognition (Neuro): normal cognition Speech: normal speech Extrem: General: normal to inspection, edema and pedal edema (trace) bilaterally Psych: Mental Status: mental status grossly normal Affect: normal affect Objective Data Vital Signs Vital Signs: Vital Signs - 24 hr 11/11/20 20:00 11/11/20 22:00 11/12/20 06:00 Temperature 36.6 C 36.5 C Pulse Rate 77 77
[2020-11-12 16:00] VITALS: BP 96/62; PULSE 58; RESP 18; TEMP 36.1; O2SAT 98
[2020-11-12 16:46] LABS: Glucose Point of Care 110 mg/dl (65-105)
[2020-11-12 17:35] VITALS: PULSE 72
[2020-11-12] MEDS: CENTRAL LINE FLUSH 10 ML IV PUSH (17:35)
[2020-11-12] MEDS: METOPROLOL SUCCINATE EXT REL 12.5 MG TABCR PO (17:35)
[2020-11-12] MEDS: WARFARIN (*PBKC) 3 MG TABLET PO (17:36)
[2020-11-12] MEDS: HEPARIN SOD/D5W 100 UNITS/ML 25,000 UNITS/250 ML BAG 8 UNITS IV CONT (17:44)
[2020-11-12 20:00] VITALS: BP 90/50; PULSE 63; RESP 18; TEMP 36.3; O2SAT 98
[2020-11-12 20:30] VITALS: PULSE 65; RESP 16; O2SAT 92
[2020-11-12] MEDS: traZODone HCL 25 MG TABLET PO (23:02)
[2020-11-12] MEDS: ATORVASTATIN 40 MG TABLET PO (23:03)
[2020-11-12] MEDS: MELATONIN 3 MG TABLET 6 MG PO (23:06)
[2020-11-12] MEDS: SENNOSIDES 8.6 MG TABLET 17.2 MG PO (23:07)
[2020-11-13] VITALS (12 sets, daily range): BP systolic 83–108; BP diastolic 43–58; PULSE 50–94; RESP 16–20; TEMP 35.9–37; O2SAT 92–99
[2020-11-13 00:12] LABS: Glucose Point of Care 115 mg/dl (65-105)
[2020-11-13 07:53] LABS: Glucose Point of Care 96 mg/dl (65-105)
[2020-11-13 08:36] LABS: INR 1.8; Prothrombin Time 20.6 Seconds (11.1-14.7)
[2020-11-13 08:37] LABS: Partial Thromboplastin Time 79.6 SECONDS (22.3-36.8)
[2020-11-13 08:48] LABS: Albumin Level 4.2 g/dL (3.5-5.1); Anion Gap 15 mmol/L (8-16); Blood Urea Nitrogen 64 mg/dL (9-20); Calcium 9.8 mg/dL (8.4-10.2); Carbon Dioxide 26 mmol/L (22-30); Chloride 96 mmol/L (98-107); Estimated CRCL calculation 11 ml/min; Estimated Glomerular Filt Rate 9; Glucose 90 mg/dL (65-110); Phosphorus 8.8 mg/dL (2.5-4.5); Potassium 4.8 mmol/L (3.4-5.0); Sodium 137 mmol/L (137-145)
[2020-11-13] MEDS: SACUBITRIL/VALSARTAN 24-26 MG TABLET 1 TAB PO ×2 (09:02→21:20)
[2020-11-13] MEDS: ASCORBIC ACID 500 MG TABLET PO ×2 (09:02→18:02)
[2020-11-13] MEDS: PANTOPRAZOLE 40 MG TABLET PO (09:02)
[2020-11-13] MEDS: BUMETANIDE 1 MG TABLET 2 MG PO (09:02)
[2020-11-13] MEDS: FINASTERIDE 5 MG TABLET PO (09:02)
[2020-11-13] MEDS: metOLazone 5 MG TABLET PO (09:02)
[2020-11-13] MEDS: TAMSULOSIN HCL 0.4 MG CAPSULE PO (09:02)
[2020-11-13] MEDS: MAGNESIUM OXIDE 200 MG TABLET PO ×2 (09:02→21:20)
[2020-11-13] MEDS: PREGABALIN (*CRX) 75 MG CAPSULE PO ×2 (09:02→18:02)
[2020-11-13] MEDS: DULoxetine HCL 30 MG CAPSULE.DR PO (09:03)
[2020-11-13] MEDS: FERROUS SULFATE 324 MG TABLET PO (09:03)
[2020-11-13] MEDS: guaiFENesin/DEXTROMETHORPHAN 10 ML UDC 5 ML PO (09:03)
[2020-11-13] MEDS: CENTRAL LINE FLUSH 10 ML IV PUSH (09:04)
[2020-11-13] MEDS: LACTIC ACID 12% LOTION 225 BTL 1 APPLIC TOPICAL (09:08)
--- NOTE | 2020-11-13 12:24 | PM.PNCARD ---
Progress Note: A&P Additional Plan 74-year-old man with: Aortic valve replacement x2 most recently last year. Patient normally receives his medical care at [place]. He was hospitalized here at [place] because of laboratory data showing end-stage renal disease. Dialysis catheter has been placed and he is now on hemodialysis. While he was hyperkalemic his Entresto was held. I resume that a couple of days ago thus far he is tolerating that without any problematic hypotension. His Coumadin has been resumed. When his INR is at least 2.0 his IV heparin can be stopped. [facility] MD [facility] Subjective Date/time seen: date of service:11/13/20 12:24 Interval history: 74-year-old man with: Valvular heart disease, coronary artery disease remote history of CABG and aortic valve replacement with a mechanical prosthesis. Patient enters the hospital with volume overload has a complex situation with left ventricular systolic dysfunction as well as development of end-stage renal disease. Dialysis catheter was placed Friday and the patient now is on renal replacement therapy. He appears to be relatively comfortable this afternoon. Discussed resuming Entresto now that he has on dialysis. The patient and his seemed to be surprised and a bit taken aback by my conversation that he has a significantly weakened heart. Despite his extensive history it seems that they did not have a good understanding of this situation Date of service 11/13/2020: Patient is comfortable he seems rather somnolent this afternoon but offers no cardiovascular complaints. Shared with the patient that his INR is coming up in is now 1.8. Hopefully by tomorrow we can stop his heparin drip Exam Narrative: PHYSICAL EXAMINATION: GENERAL: week, ill-appearing male, Alert, oriented, no acute distress MENTAL STATUS: affect appropriate to mood EYES: Extraocular movements intact, pallor EARS: External ears appear normal, hearing grossly normal NOSE: Normal and patent, no discharge MOUTH: Mucous membranes moist, tongue normal NECK: Supple, no JVD CHEST: scattered crackles HEART: normal rate, irregular rhythm, variable S1, mechanical S2 ABDOMEN: Soft, nontender NEUROLOGICAL: Alert, speech is coherent MUSCULOSKELETAL: No major deformity, no amputation EXTREMITIES: bilateral pedal edema, compression dressing in place SKIN: graft patches in the back of chest; ulcers in the legs PSYCHIATRIC: Normal mood, appropriate affect Const: General: comfortable and no acute distress; No confusion Orientation/consciousness: No confusion HENMT: Head: normal to inspection Mouth: Yes moist mucous membranes Eyes: General: appearance normal, both eyes and all related structures Sclera: sclerae normal Pupils: Equal, round and reactive pupils present Neck: Neck: supple and no JVD Thyroid: thyroid normal Resp: Effort & Inspection: normal respiratory effort Auscultation: crackles (bases) bilateral Other: patient has pulmonary rales about 1/3 up bilaterally Cardio: Rate: regular rate Rhythm: regular rhythm and abnormal rhythm irregularly irregular Heart sounds: Other heart sounds present ( Normal mechanical clicks of mitral valve) Other: normal crisp aortic valve closure sound noted GI: Auscultation: normal bowel sounds Skin: General skin exam: normal color, purpura ( rash in the lower limbs suspect subcutaneous bleed spots) and other Wounds: wounds noted Neuro: General: No confusion Cranial nerves: Yes Equal, round and reactive pupils present and Yes Normal hearing present Cognition (Neuro): normal cognition Speech: normal speech Extrem: General: normal to inspection, edema and pedal edema (trace) bilaterally Psych: Mental Status: mental status grossly normal Affect: normal affect Objective Data Vital Signs Vital Signs: Vital Signs - 24 hr 11/12/20 16:00 11/12/20 17:35 11/12/20 20:00 Temperature 36.1 C L 36.3 C L Pulse R
[2020-11-13 12:27] LABS: Glucose Point of Care 104 mg/dl (65-105)
[2020-11-13] MEDS: diphenhydrAMINE HCl CAP 25 MG CAPSULE PO (14:13)
[2020-11-13] MEDS: MIDODRINE HCL 2.5 MG TABLET 5 MG PO (14:13)
--- NOTE | 2020-11-13 14:20 | PC.NURSE ---
Patient to dialysis room via bed.
--- NOTE | 2020-11-13 16:01 | P.PNIM_ITS ---
Progress Note: A&P Assessment and Plan (1) ANDRADE (acute kidney injury): Code(s): N17.9 - Acute kidney failure, unspecified Status: Acute Assessment and Plan: * s/p right IJ dialysis catheter placement by Dr Hart 11/10/20. Had dialysis Friday, Friday, and today. * Cr 6.2/ BUN 64 today. * Appreciate nephrology recommendations. Remains on Bumex and metolazone. * Renal US unremarkable. Renal biopsy 08/07/20 which showed acute tubular injury. 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 * Heparin gtt was initiated 11/08 in order to keep him anticoagulated while we held warfarin for his surgery. * Received FFP early AM 11/10 prior to his procedure. * Monitor INR daily. Warfarin resumed 11/11, continue. * INR 1.8 today. * Contacted his [facility] pharm tech office today. He used to follow with Dr Hall who is retiring, he is to now follow with Dr Jenna Bond at [facility] but has not had his first appointment yet. I spoke with their office and confirmed Dr Bond will be the one to follow his INR and warfarin dosing following discharge. ([phone]; warfarin clinic at [phone]) (3) Anemia in CKD (chronic kidney disease): Qualifiers: Chronic kidney disease stage: unspecified stage Qualified Code(s): N18.9 - Chronic kidney disease, unspecified; D63.1 - Anemia in chronic kidney disease Code(s): N18.9 - Chronic kidney disease, unspecified; D63.1 - Anemia in chronic kidney disease Status: Acute Assessment and Plan: * Hgb remains low but stable without evidence of acute bleeding. Transfused 2 units pRBC 11/02. * Suspect related to anemia of CKD and other comorbid conditions. Also with positive occult blood in stool * Bone marrow biopsy July 2020 consistent with multiple myeloma however not requiring tx at this time. * Monitor CBC and transfuse prn. Continue PO iron supplementation * Received 20,000 units Epogen 11/02. F/u with Dr. Nowak in 2 weeks (4) CHF (congestive heart failure): Qualifiers: Heart failure chronicity: acute on chronic Heart failure type: unspecified Qualified Code(s): I50.9 - Heart failure, unspecified Code(s): I50.9 - Heart failure, unspecified Status: Chronic Assessment and Plan: * Hopeful volume status will improve with initiation of dialysis. Still with rales on exam today. * CXR with cardiomegaly, congestion, likely pulmonary edema and with complaints of scrotal edema * Echo with reduced EF 30-35% * Remains on oral bumex and metolazone. Monitor I&Os. * Appreciate cardiology input. Cardiology resumed Entresto 11/11. (5) Urinary tract infection in male: Code(s): N39.0 - Urinary tract infection, site not specified Status: Acute Assessment and Plan: * Urine culture grew Pseudomonas. He completed 7-day course of imipenem on 11/03/20. Blood cultures negative. (6) Occult blood in stools: Code(s): R19.5 - Other fecal abnormalities Status: Acute Assessment and Plan: * Occult blood positive on 07/16/2020 and 11/02/2020. He is otherwise asymptomatic without melena or hematochezia * Continue Pro
--- NOTE | 2020-11-13 16:01 | PM.IMPN ---
Progress Note: A&P Assessment and Plan (1) ANDRADE (acute kidney injury): Code(s): N17.9 - Acute kidney failure, unspecified Status: Acute Assessment and Plan: s/p right IJ dialysis catheter placement by Dr Hart 11/10/20. Had dialysis Friday, Friday, and today. Cr 6.2/ BUN 64 today. Appreciate nephrology recommendations. Remains on Bumex and metolazone. Renal US unremarkable. Renal biopsy 08/07/20 which showed acute tubular injury. 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 Heparin gtt was initiated 11/08 in order to keep him anticoagulated while we held warfarin for his surgery. Received FFP early AM 11/10 prior to his procedure. Monitor INR daily. Warfarin resumed 11/11, continue. INR 1.8 today. 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 He used to follow with Dr Hall who is retiring, he is to now follow with Dr Jenna Bond at [facility] but has not had his first appointment yet. I spoke with their office and confirmed Dr Bond will be the one to follow his INR and warfarin dosing following discharge. ([phone]; warfarin clinic at [phone]) (3) Anemia in CKD (chronic kidney disease): Qualifiers: Chronic kidney disease stage: unspecified stage Qualified Code(s): N18.9 - Chronic kidney disease, unspecified; D63.1 - Anemia in chronic kidney disease Code(s): N18.9 - Chronic kidney disease, unspecified; D63.1 - Anemia in chronic kidney disease Status: Acute Assessment and Plan: Hgb remains low but stable without evidence of acute bleeding. Transfused 2 units pRBC 11/02. Suspect related to anemia of CKD and other comorbid conditions. Also with positive occult blood in stool Bone marrow biopsy July 2020 consistent with multiple myeloma however not requiring tx at this time. Monitor CBC and transfuse prn. Continue PO iron supplementation Received 20,000 units Epogen 11/02. F/u with Dr. Nowak in 2 weeks (4) CHF (congestive heart failure): Qualifiers: Heart failure chronicity: acute on chronic Heart failure type: unspecified Qualified Code(s): I50.9 - Heart failure, unspecified Code(s): I50.9 - Heart failure, unspecified Status: Chronic Assessment and Plan: Hopeful volume status will improve with initiation of dialysis. Still with rales on exam today. CXR with cardiomegaly, congestion, likely pulmonary edema and with complaints of scrotal edema Echo with reduced EF 30-35% Remains on oral bumex and metolazone. Monitor I&Os. Appreciate cardiology input. Cardiology resumed Entresto 11/11. (5) Urinary tract infection in male: Code(s): N39.0 - Urinary tract infection, site not specified Status: Acute Assessment and Plan: Urine culture grew Pseudomonas. He completed 7-day course of imipenem on 11/03/20. Blood cultures negative. (6) Occult blood in stools: Code(s): R19.5 - Other fecal abnormalities Status: Acute Assessment and Plan: Occult blood positive on 07/16/2020 and 11/02/2020. He is otherwise asymptomatic without melena or hematochezia Continue Protonix Recommend outpatient GI follow-up for EGD and possibly colonoscopy. (7) Atrial fibrillation: Qualifiers: Atrial fibrillation type: unspecified Qualified Code(s): I48.91 - Unspecified atrial fibrillation Code(s): I48.91 - Unspecified atrial fibrillation Status: Chronic Assessment and Plan: Rate contr
--- NOTE | 2020-11-13 17:31 | PM.PNNEP ---
Progress Note: A&P Assessment and Plan (1) ANDRADE (acute kidney injury): Code(s): N17.9 - Acute kidney failure, unspecified Status: Acute Assessment and Plan: ANDRADE urine electrolytes non pre renal urine eosinophils negative ultrasound negative UA shows blood and leukocytes. Urine culture showed Pseudomonas. He is on imipenem. dialysis catheter is in. Hemodialysis in process. (2) Chronic kidney disease, stage IV (severe): Code(s): N18.4 - Chronic kidney disease, stage 4 (severe) Status: Chronic Assessment and Plan: baseline creatinine ~ 1.6 - 2.1mg/dl since January 2020 Will see if he recovers function enough to get off dialysis. (3) Urinary tract infection: Code(s): N39.0 - Urinary tract infection, site not specified Status: Acute Assessment and Plan: off antibiotics (4) Hyperkalemia: Code(s): E87.5 - Hyperkalemia Status: Acute Assessment and Plan: resolved (5) Hypertension: Qualifiers: Hypertension type: unspecified Qualified Code(s): I10 - Essential (primary) hypertension Code(s): I10 - Essential (primary) hypertension Status: Chronic Assessment and Plan: Blood pressure doing pretty well (6) A-fib: Code(s): I48.91 - Unspecified atrial fibrillation Status: Chronic Assessment and Plan: He is on metoprolol for rate control. His blood pressure is a little soft so I am going to change to metoprolol succinate 12.5 mg in the evenings. on a heparin drip currently and will start Coumadin again tonight (7) Edema: Code(s): R60.9 - Edema, unspecified Status: Acute Assessment and Plan: On Bumex and metolazone Continue this. (8) Rash: Code(s): R21 - Rash and other nonspecific skin eruption Status: Acute Assessment and Plan: apparently chronic. symptomatic tx He still has significant eosinophilia. to see Dermatology as an outpatient (9) Erythropoietin deficiency anemia: Code(s): D63.1 - Anemia in chronic kidney disease Status: Acute Assessment and Plan: he is getting Epogen. Last iron levels were low. He was on antibiotics before. Now that he is off of these I will start him on some iron supplements. Subjective Date/time seen: 11/13/20 17:31 Interval history: patient is alert. He feels okay. He is on dialysis and tolerating it well. He was seen at 5 p.m. blood pressure is in the high 90s. He is getting albumin 4 low blood pressure. he also received some midodrine. Exam Narrative: General: WD/WN male in NAD Heart: irregular rate and rhythm. no rub Lungs: clear bilaterally Abdomen: BS+ nontender and soft Extremities: no cyanosis or clubbing; 1-2+ edema Skin: chronic venous stasis dermatitis below his knees Objective Data Vital Signs Vital Signs: Vital Signs - 24 hr 11/12/20 17:35 11/12/20 20:00 11/12/20 20:30 Temperature 36.3 C L Pulse Rate 72 63 65 Respiratory Rate 18 16 Blood Pressure 90/50 L Pulse Oximetry 98 92 11/13/20 00:00 11/13/20 04:00 11/13/20 08:00 Temperature 36.2 C L 36.3 C L 36.3 C L Pulse Rate 65 72 70 Respiratory Rate 16 16 16 Blood Pressure 92/50 L 94/58 L 100/52 L Pulse Oximetry 92 95 94 11/13/20 12:00 11/13/20 14:20 11/13/20 14:30 Temperature 35.9 C L 36.8 C Pulse Rate 83 70 72 Respiratory Rate 16 20 Blood Pressure 96/54 L 108/56 L 106/52 L Pulse Oximetry 96 11/13/20 16:00 11/13/20 17:00 Temperature Pulse Rate 81 71 Respiratory Rate Blood Pressure 95/54 L 89/45 L Pulse Oximetry Intake/Output Intake/Output: Intake & Output 11/10/20 11/11/20 11/12/20 11/13/20 23:59 23:59 23:59 23:59 Intake Total 6657 419 1431 1050 Output Total 1625 8590 100 Balance -3553 -1538 1130 1050 Meds/Results Medications: Active Medications Generic Name Dose Route Start Last A
[2020-11-13 18:00] LABS: Glucose Point of Care 102 mg/dl (65-105)
[2020-11-13] MEDS: WARFARIN (*PBKC) 3 MG TABLET PO (18:02)
[2020-11-13] MEDS: METOPROLOL SUCCINATE EXT REL 12.5 MG TABCR PO (18:03)
[2020-11-13] MEDS: HEPARIN SOD/D5W 100 UNITS/ML 25,000 UNITS/250 ML BAG 8 UNITS IV CONT (18:06)
[2020-11-13] MEDS: ATORVASTATIN 40 MG TABLET PO (21:20)
[2020-11-13] MEDS: MELATONIN 3 MG TABLET 6 MG PO (21:20)
[2020-11-13] MEDS: HYDROcodone/acetaminophen (*CRX) 5-325 MG TABLET 1 TAB PO (21:32)
[2020-11-13] MEDS: traZODone HCL 25 MG TABLET PO (21:38)
[2020-11-13 21:45] LABS: Glucose Point of Care 209 mg/dl (65-105)
[2020-11-14] VITALS (8 sets, daily range): BP systolic 82–110; BP diastolic 48–72; PULSE 70–81; RESP 16–18; TEMP 36.2–37.2; O2SAT 91–99
[2020-11-14 06:51] LABS: Alanine Aminotransferase 10 U/L (4-50); Albumin Level 4.2 g/dL (3.5-5.1); Alkaline Phosphatase 98 U/L (38-126); Anion Gap 17 mmol/L (8-16); Aspartate Amino Transferase 28 U/L (17-59); Bilirubin,Total 0.7 mg/dL (0.2-1.3); Blood Urea Nitrogen 42 mg/dL (9-20); Calcium 9.4 mg/dL (8.4-10.2); Carbon Dioxide 25 mmol/L (22-30); Chloride 95 mmol/L (98-107); Estimated CRCL calculation 15 ml/min; Estimated Glomerular Filt Rate 13; Glucose 103 mg/dL (65-110); Magnesium 1.8 mg/dL (1.6-2.3); Potassium 4.4 mmol/L (3.4-5.0); Sodium 137 mmol/L (137-145)
[2020-11-14 06:56] LABS: Basophils Percent Auto 0.2 % (0.2-1.2); Eosinophils Absolute Auto 1.6 K/mm3 (0-0.3); Eosinophils Percent Auto 18.6 % (0-4.4); Hematocrit 32.3 % (42.0-52.0); Hemoglobin 10.1 g/dL (14.0-18.0); Immature Granulocyte Absolute 0.08 K/mm3 (0.00-0.031); Immature Platelet Fraction Pct 14.1 % (0.9-11.2); Lymphocytes Percent Auto 14.3 % (18.3-44.2); Mean Corpuscular HGB Conc 31.3 g/dl (32-36); Mean Corpuscular Hemoglobin 27.5 pg (26-34); Monocytes Percent Auto 11.7 % (2.6-8.5); Neutrophils Absolute Auto 4.5 K/mm3 (1.3-6.7); Neutrophils Percent Auto 54.2 % (45.5-73.1); Platelet Count Result 69 k/mm3 (150-375); Red Blood Count 3.67 M/mm3 (4.6-6.20); Red Cell Distribution Width 17.3 % (11.5-14.5); White Blood Count 8.4 K/mm3 (4.5-10.0)
[2020-11-14 06:59] LABS: INR 2.2; Prothrombin Time 23.7 Seconds (11.1-14.7)
--- NOTE | 2020-11-14 07:51 | PM.PNNEP ---
Progress Note: A&P Assessment and Plan (1) ANDRADE (acute kidney injury): Code(s): N17.9 - Acute kidney failure, unspecified Status: Acute Assessment and Plan: ANDRADE urine electrolytes non pre renal urine eosinophils negative ultrasound negative UA shows blood and leukocytes. Urine culture showed Pseudomonas. He is on imipenem. dialysis catheter is in. Hemodialysis done Friday and yesterday. Will do another treatment tomorrow. We will need to continue this as an outpatient. He can go to [place] [facility]. He said that he would like to go to [facility] in this area as well. (2) Chronic kidney disease, stage IV (severe): Code(s): N18.4 - Chronic kidney disease, stage 4 (severe) Status: Chronic Assessment and Plan: baseline creatinine ~ 1.6 - 2.1mg/dl since January 2020 Will see if he recovers function enough to get off dialysis. (3) Urinary tract infection: Code(s): N39.0 - Urinary tract infection, site not specified Status: Acute Assessment and Plan: off antibiotics (4) Hyperkalemia: Code(s): E87.5 - Hyperkalemia Status: Acute Assessment and Plan: resolved (5) Hypertension: Qualifiers: Hypertension type: unspecified Qualified Code(s): I10 - Essential (primary) hypertension Code(s): I10 - Essential (primary) hypertension Status: Chronic Assessment and Plan: Blood pressure doing pretty well (6) A-fib: Code(s): I48.91 - Unspecified atrial fibrillation Status: Chronic Assessment and Plan: He is on metoprolol for rate control. His blood pressure is a little soft so I am going to change to metoprolol succinate 12.5 mg in the evenings. on a heparin drip Bridging to Coumadin. (7) Edema: Code(s): R60.9 - Edema, unspecified Status: Acute Assessment and Plan: On Bumex and metolazone Continue this If he continues to make urine.. (8) Rash: Code(s): R21 - Rash and other nonspecific skin eruption Status: Acute Assessment and Plan: apparently chronic. symptomatic tx He still has significant eosinophilia. to see Dermatology as an outpatient (9) Erythropoietin deficiency anemia: Code(s): D63.1 - Anemia in chronic kidney disease Status: Acute Assessment and Plan: he is getting Epogen and Iron Subjective Date/time seen: 11/14/20 07:51 Interval history: patient is alert. He feels okay. No chest pain or shortness of breath. Swelling seems a little bit better. Skin rashes the usual Exam Narrative: General: WD/WN male in NAD Heart: irregular rate and rhythm. no rub Lungs: clear bilaterally Abdomen: BS+ nontender and soft Extremities: no cyanosis or clubbing; 1-2+ edema Skin: chronic venous stasis dermatitis below his knees and also an additional rash about which he is going to see a car rental agency manager as an outpatient Objective Data Vital Signs Vital Signs: Vital Signs - 24 hr 11/13/20 08:00 11/13/20 12:00 11/13/20 14:20 Temperature 36.3 C L 35.9 C L 36.8 C Pulse Rate 70 83 70 Respiratory Rate 16 16 20 Blood Pressure 100/52 L 96/54 L 108/56 L Pulse Oximetry 94 96 11/13/20 14:30 11/13/20 16:00 11/13/20 17:00 Temperature 36.3 C L Pulse Rate 72 94 71 Respiratory Rate 18 Blood Pressure 106/52 L 93/46 L 89/45 L Pulse Oximetry 95 11/13/20 17:30 11/13/20 17:40 11/13/20 18:03 Temperature 36.6 C Pulse Rate 50 L 91 71 Respiratory Rate 20 Blood Pressure 83/43 L 97/53 L Pulse Oximetry 11/13/20 20:00 11/14/20 00:00 11/14/20 04:00 Temperature 36.7 C 36.7 C 36.3 C L Pulse Rate 83 81 80 Respiratory Rate 16 18 18 Blood Pressure 102/58 L 103/58 L 98/61 L Pulse Oximetry 99 96 91 Intake/Output Intake/Output: Intake & Output 11/11/20 11/12/20 11/13/20 11/14/20 23:59 23:59 23:59 23:59 Intake
[2020-11-14] MEDS: ASCORBIC ACID 500 MG TABLET PO ×2 (08:26→17:05)
[2020-11-14] MEDS: DULoxetine HCL 30 MG CAPSULE.DR PO (08:26)
[2020-11-14] MEDS: BUMETANIDE 1 MG TABLET 2 MG PO (08:26)
[2020-11-14] MEDS: FINASTERIDE 5 MG TABLET PO (08:26)
[2020-11-14] MEDS: LACTIC ACID 12% LOTION 225 BTL 1 APPLIC TOPICAL (08:26)
[2020-11-14] MEDS: PANTOPRAZOLE 40 MG TABLET PO (08:27)
[2020-11-14] MEDS: PREGABALIN (*CRX) 75 MG CAPSULE PO ×2 (08:27→17:05)
[2020-11-14] MEDS: MAGNESIUM OXIDE 200 MG TABLET PO ×2 (08:27→20:40)
[2020-11-14] MEDS: metOLazone 5 MG TABLET PO (08:27)
[2020-11-14] MEDS: TAMSULOSIN HCL 0.4 MG CAPSULE PO (08:28)
[2020-11-14] MEDS: SACUBITRIL/VALSARTAN 24-26 MG TABLET 1 TAB PO ×2 (08:28→20:40)
[2020-11-14 08:35] LABS: Glucose Point of Care 114 mg/dl (65-105)
[2020-11-14] MEDS: IRON SUCROSE COMPLEX 200 MG in SODIUM CHLORIDE 0.9% IV 50 ML 120 MG IVPB (10:15)
--- NOTE | 2020-11-14 11:16 | PCNFU ---
Nutrition Follow-Up Complete: Increased protein needs related to multiple wounds as evidenced by a nutrition consult and wound assessment. Goal: Have patient meet estimated nutritional needs. Patient has met current goal. No new goal. Pt current nutrition is Renal Dialysis Diet. Last recorded weight is 77.6 kg, down from 95.6 kg on admit. Bowel Motility:+BM reported 11/13 Labs Reviewed:GFR 13,BUN 42,Cr 4.4,Hct 32.3,Hgb 10.1 Meds Noted:Protonix, Heparin,Bumex,Mag Ox,Vit C, Lipitor,Cymbalta, Coumadin. Additional Notes: Patient seen today for nutrition follow up. He states to eating well, 100% of meals reported. Dialysis catheter has been placed. Plans for outpatient Dialysis. Agree with diet orders. Monitoring: Will follow up in 7 days.
[2020-11-14] MEDS: SODIUM CHLORIDE 0.9% IV 250 ML IVPB (11:43)
--- NOTE | 2020-11-14 11:44 | PC.NURSE ---
250cc NS bolus administered at 250cc/hour per Chana Courtney. 500cc bag was ordered; RN instructed to administer 250cc and then re-check a manual BP. Call [facility] with results.
--- NOTE | 2020-11-14 11:45 | P.PNIM_ITS ---
Progress Note: A&P Assessment and Plan (1) Hypotension: Code(s): I95.9 - Hypotension, unspecified Status: Acute Assessment and Plan: Patient has been having low normal blood pressures. This morning he was sl ightly low at 89/48. Patient was reporting lightheadedness and dizziness while sitting up in the chair. Manual blood pressure was taken which showed he was hypotensive 82/48. ordered for 250 cc fluid bolus to be administered and manually recheck blood pressure. blood pressure was not called to me it was 94/54. * Believe it is due to over diuresis since he did receive his medications this morning even with a low blood pressure, Metolazone, Bumex, Toprol and Entresto. * Will continue to have the nurse check his blood pressure before giving any type of medications that could affect his blood pressure. * He cannot have Maurilio hose on due to his leg wounds. * Will talk to nephrology about any adjustments that can be made verses parameters on his medications to trying prevent hypotension. Continue monitoring. (2) ANDRADE (acute kidney injury): Code(s): N17.9 - Acute kidney failure, unspecified Status: Acute Assessment and Plan: * s/p right IJ dialysis catheter placement by Dr Hart 11/10/20. Had dialysis Friday, Friday, and today. * Cr 4.4/ BUN 42 today. * Appreciate nephrology recommendations. Remains on Bumex and metolazone. * Renal US unremarkable. Renal biopsy 08/07/20 which showed acute tubular injury. 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 * Heparin gtt was initiated 11/08 in order to keep him anticoagulated while we held warfarin for his surgery. * Received FFP early AM 11/10 prior to his procedure. * Monitor INR daily. Warfarin resumed 11/11, continue. * INR 2.2 today. 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 He used to follow with Dr Hall who is retiring, he is to now follow with Dr Jenna Bond at [facility] but has not had his first appointment yet. I spoke with their office and confirmed Dr Bond will be the one to follow his INR and warfarin dosing following discharge. ([phone]; warfarin clinic at [phone]) (4) Anemia in CKD (chronic kidney disease): Qualifiers: Chronic kidney disease stage: unspecified stage Qualified Code(s): N18.9 - Chronic kidney disease, unspecified; D63.1 - Anemia in chronic kidney disease Code(s): N18.9 - Chronic kidney disease, unspecified; D63.1 - Anemia in chronic kidney disease Status: Acute Assessment and Plan: * Hgb remains low but stable without evidence of acute bleeding. Transfused 2 units pRBC 11/02. * Suspect related to anemia of CKD and other comorbid conditions. Also with positive occult blood in stool * Bone marrow biopsy July 2020 consistent with multiple myeloma however not requiring tx at this time. * Monitor CBC and transfuse prn. Continue PO iron supplementation * Received 20,000 units Epogen 11/02. F/u with Dr. Nowak in 2 weeks (5) CHF (congestive heart failure): Qualifiers: Heart failure chronicity: acute on chronic Heart failure type: unspecified Qualified Code(s): I50.9 - Heart failure, unspecified Code(s
--- NOTE | 2020-11-14 11:45 | PM.IMPN ---
Progress Note: A&P Assessment and Plan (1) Hypotension: Code(s): I95.9 - Hypotension, unspecified Status: Acute Assessment and Plan: Patient has been having low normal blood pressures. This morning he was slightly low at 89/48. Patient was reporting lightheadedness and dizziness while sitting up in the chair. Manual blood pressure was taken which showed he was hypotensive 82/48. ordered for 250 cc fluid bolus to be administered and manually recheck blood pressure. blood pressure was not called to me it was 94/54. Believe it is due to over diuresis since he did receive his medications this morning even with a low blood pressure, Metolazone, Bumex, Toprol and Entresto. Will continue to have the nurse check his blood pressure before giving any type of medications that could affect his blood pressure. He cannot have Maurilio hose on due to his leg wounds. Will talk to nephrology about any adjustments that can be made verses parameters on his medications to trying prevent hypotension. Continue monitoring. (2) ANDRADE (acute kidney injury): Code(s): N17.9 - Acute kidney failure, unspecified Status: Acute Assessment and Plan: s/p right IJ dialysis catheter placement by Dr Hart 11/10/20. Had dialysis Friday, Friday, and today. Cr 4.4/ BUN 42 today. Appreciate nephrology recommendations. Remains on Bumex and metolazone. Renal US unremarkable. Renal biopsy 08/07/20 which showed acute tubular injury. 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 Heparin gtt was initiated 11/08 in order to keep him anticoagulated while we held warfarin for his surgery. Received FFP early AM 11/10 prior to his procedure. Monitor INR daily. Warfarin resumed 11/11, continue. INR 2.2 today. 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 He used to follow with Dr Hall who is retiring, he is to now follow with Dr Jenna Bond at [facility] but has not had his first appointment yet. I spoke with their office and confirmed Dr Bond will be the one to follow his INR and warfarin dosing following discharge. ([phone]; warfarin clinic at [phone]) (4) Anemia in CKD (chronic kidney disease): Qualifiers: Chronic kidney disease stage: unspecified stage Qualified Code(s): N18.9 - Chronic kidney disease, unspecified; D63.1 - Anemia in chronic kidney disease Code(s): N18.9 - Chronic kidney disease, unspecified; D63.1 - Anemia in chronic kidney disease Status: Acute Assessment and Plan: Hgb remains low but stable without evidence of acute bleeding. Transfused 2 units pRBC 11/02. Suspect related to anemia of CKD and other comorbid conditions. Also with positive occult blood in stool Bone marrow biopsy July 2020 consistent with multiple myeloma however not requiring tx at this time. Monitor CBC and transfuse prn. Continue PO iron supplementation Received 20,000 units Epogen 11/02. F/u with Dr. Nowak in 2 weeks (5) CHF (congestive heart failure): Qualifiers: Heart failure chronicity: acute on chronic Heart failure type: unspecified Qualified Code(s): I50.9 - Heart failure, unspecified Code(s): I50.9 - Heart failure, unspecified Status: Chronic Assessment and Plan: Hopeful volume status will improve with initiation of dialysis. Still with rales on exam today. CXR with cardiomegaly, congestion, likely pulmonary edema and with complaints of scrotal edema Echo with reduced EF 30-35% Remains on oral bumex and metolazone. Monitor I&Os.
[2020-11-14 12:15] LABS: Glucose Point of Care 200 mg/dl (65-105)
[2020-11-14] MEDS: METOPROLOL SUCCINATE EXT REL 12.5 MG TABCR PO (17:06)
[2020-11-14] MEDS: WARFARIN (*PBKC) 3 MG TABLET PO (17:06)
[2020-11-14 17:59] LABS: Glucose Point of Care 121 mg/dl (65-105)
[2020-11-14 20:37] LABS: Glucose Point of Care 195 mg/dl (65-105)
[2020-11-14] MEDS: MELATONIN 3 MG TABLET 6 MG PO (20:39)
[2020-11-14] MEDS: SENNOSIDES 8.6 MG TABLET 17.2 MG PO (20:40)
[2020-11-14] MEDS: ATORVASTATIN 40 MG TABLET PO (20:40)
[2020-11-14] MEDS: traZODone HCL 25 MG TABLET PO (20:40)
[2020-11-14] MEDS: guaiFENesin/DEXTROMETHORPHAN 10 ML UDC 5 ML PO (20:44)
[2020-11-14] MEDS: HYDROcodone/acetaminophen (*CRX) 5-325 MG TABLET 1 TAB PO (20:45)
[2020-11-14] MEDS: diphenhydrAMINE HCl CAP 25 MG CAPSULE PO (20:45)
[2020-11-15] VITALS (24 sets, daily range): BP systolic 80–146; BP diastolic 37–97; PULSE 61–90; RESP 14–18; TEMP 35.9–36.7; O2SAT 97–99
[2020-11-15 06:50] LABS: Hematocrit 29.9 % (42.0-52.0); Hemoglobin 9.4 g/dL (14.0-18.0); Immature Platelet Fraction Pct 13.9 % (0.9-11.2); Mean Corpuscular HGB Conc 31.4 g/dl (32-36); Mean Corpuscular Hemoglobin 27.5 pg (26-34); Mean Corpuscular Volume 87.4 fl (80-100); Platelet Count Result 78 k/mm3 (150-375); Red Blood Count 3.42 M/mm3 (4.6-6.20); Red Cell Distribution Width 17.2 % (11.5-14.5); White Blood Count 7.6 K/mm3 (4.5-10.0)
[2020-11-15 06:59] LABS: Anion Gap 15 mmol/L (8-16); Blood Urea Nitrogen 58 mg/dL (9-20); Calcium 9.4 mg/dL (8.4-10.2); Carbon Dioxide 23 mmol/L (22-30); Chloride 97 mmol/L (98-107); Estimated CRCL calculation 12 ml/min; Estimated Glomerular Filt Rate 10; Glucose 97 mg/dL (65-110); Phosphorus 7.7 mg/dL (2.5-4.5); Potassium 4.6 mmol/L (3.4-5.0); Sodium 135 mmol/L (137-145)
[2020-11-15 07:55] LABS: Prothrombin Time 29.9 Seconds (11.1-14.7)
[2020-11-15 08:21] LABS: Glucose Point of Care 102 mg/dl (65-105)
[2020-11-15] MEDS: ASCORBIC ACID 500 MG TABLET PO ×2 (08:22→17:22)
[2020-11-15] MEDS: DULoxetine HCL 30 MG CAPSULE.DR PO (08:23)
[2020-11-15] MEDS: LACTIC ACID 12% LOTION 225 BTL 1 APPLIC TOPICAL (08:23)
[2020-11-15] MEDS: FINASTERIDE 5 MG TABLET PO (08:23)
[2020-11-15] MEDS: MAGNESIUM OXIDE 200 MG TABLET PO ×2 (08:23→20:56)
[2020-11-15] MEDS: PREGABALIN (*CRX) 75 MG CAPSULE PO ×2 (08:24→17:23)
[2020-11-15] MEDS: TAMSULOSIN HCL 0.4 MG CAPSULE PO (08:24)
[2020-11-15] MEDS: PANTOPRAZOLE 40 MG TABLET PO (08:24)
[2020-11-15] MEDS: SACUBITRIL/VALSARTAN 24-26 MG TABLET 1 TAB PO (08:24)
--- NOTE | 2020-11-15 10:04 | P.PNNP_ITS ---
Progress Note: A&P Assessment and Plan (1) ANDRADE (acute kidney injury): Code(s): N17.9 - Acute kidney failure, unspecified Status: Acute Assessment and Plan: * ANDRADE * urine electrolytes non pre renal * urine eosinophils negative * ultrasound negative * UA shows blood and leukocytes. Urine culture showed Pseudomonas. * He is on imipenem. * dialysis catheter is in. * Hemodialysis to be done today. * We will need to continue this as an outpatient. He can go to [place] [facility]. He said that he would like to go to intermediate in this area as well. (2) Chronic kidney disease, stage IV (severe): Code(s): N18.4 - Chronic kidney disease, stage 4 (severe) Status: Chronic Assessment and Plan: * baseline creatinine ~ 1.6 - 2.1mg/dl since January 2020 * Will see if he recovers function enough to get off dialysis. (3) Urinary tract infection: Code(s): N39.0 - Urinary tract infection, site not specified Status: Acute Assessment and Plan: * off antibiotics (4) Hyperkalemia: Code(s): E87.5 - Hyperkalemia Status: Acute Assessment and Plan: * resolved (5) Hypertension: Qualifiers: Hypertension type: unspecified Qualified Code(s): I10 - Essential (primary) hypertension Code(s): I10 - Essential (primary) hypertension Status: Chronic Assessment and Plan: * Blood pressure doing pretty well (6) A-fib: Code(s): I48.91 - Unspecified atrial fibrillation Status: Chronic Assessment and Plan: * He is on metoprolol for rate control. * His blood pressure is a little soft so I am going to change to metoprolol succinate 12.5 mg in the evenings. * on Coumadin. (7) Edema: Code(s): R60.9 - Edema, unspecified Status: Acute Assessment and Plan: Swelling is much better. Urine output is minimal. Will stop the diuretics Continue this If he continues to make urine.. (8) Rash: Code(s): R21 - Rash and other nonspecific skin eruption Status: Acute Assessment and Plan: apparently chronic. symptomatic tx He still has significant eosinophilia. to see Dermatology as an outpatient (9) Erythropoietin deficiency anemia: Code(s): D63.1 - Anemia in chronic kidney disease Status: Acute Assessment and Plan: he is getting Epogen and Iron Subjective Date/time seen: 11/15/20 10:04 Interval history: patient is alert. He feels okay. slept well. Exam Narrative: General: WD/WN male in NAD Heart: irregular rate and rhythm. no rub Lungs: clear to auscultation Abdomen: BS+ nontender and soft Extremities: no cyanosis or clubbing; Trace edema Skin: chronic venous stasis dermatitis below his knees and also an additional rash about which he is going to see a matting press tender as an outpatient Objective Data Vital Signs Vital Signs: Vital Signs - 24 hr 11/14/20 12:00 11/14/20 12:54 11/14/20 16:00 Temperature 37.1 C 36.2 C L Pulse Rate 78 70 Respiratory Rate 18 18 Blood Pressure 82/48 L 94/54 L 102/72 Pulse Oximetry 94 98 11/14/20 17:06 11/14/20 20:00 11/15/20 00:00 Temperature 37.2 C 36.7 C Pulse Rate 70 76 73 Respiratory Rate 16 16
--- NOTE | 2020-11-15 10:04 | PM.PNNEP ---
Progress Note: A&P Assessment and Plan (1) ANDRADE (acute kidney injury): Code(s): N17.9 - Acute kidney failure, unspecified Status: Acute Assessment and Plan: ANDRADE urine electrolytes non pre renal urine eosinophils negative ultrasound negative UA shows blood and leukocytes. Urine culture showed Pseudomonas. He is on imipenem. dialysis catheter is in. Hemodialysis to be done today. We will need to continue this as an outpatient. He can go to [place] dialysis. He said that he would like to go to nursing home in this area as well. (2) Chronic kidney disease, stage IV (severe): Code(s): N18.4 - Chronic kidney disease, stage 4 (severe) Status: Chronic Assessment and Plan: baseline creatinine ~ 1.6 - 2.1mg/dl since January 2020 Will see if he recovers function enough to get off dialysis. (3) Urinary tract infection: Code(s): N39.0 - Urinary tract infection, site not specified Status: Acute Assessment and Plan: off antibiotics (4) Hyperkalemia: Code(s): E87.5 - Hyperkalemia Status: Acute Assessment and Plan: resolved (5) Hypertension: Qualifiers: Hypertension type: unspecified Qualified Code(s): I10 - Essential (primary) hypertension Code(s): I10 - Essential (primary) hypertension Status: Chronic Assessment and Plan: Blood pressure doing pretty well (6) A-fib: Code(s): I48.91 - Unspecified atrial fibrillation Status: Chronic Assessment and Plan: He is on metoprolol for rate control. His blood pressure is a little soft so I am going to change to metoprolol succinate 12.5 mg in the evenings. on Coumadin. (7) Edema: Code(s): R60.9 - Edema, unspecified Status: Acute Assessment and Plan: Swelling is much better. Urine output is minimal. Will stop the diuretics Continue this If he continues to make urine.. (8) Rash: Code(s): R21 - Rash and other nonspecific skin eruption Status: Acute Assessment and Plan: apparently chronic. symptomatic tx He still has significant eosinophilia. to see Dermatology as an outpatient (9) Erythropoietin deficiency anemia: Code(s): D63.1 - Anemia in chronic kidney disease Status: Acute Assessment and Plan: he is getting Epogen and Iron Subjective Date/time seen: 11/15/20 10:04 Interval history: patient is alert. He feels okay. slept well. Exam Narrative: General: WD/WN male in NAD Heart: irregular rate and rhythm. no rub Lungs: clear to auscultation Abdomen: BS+ nontender and soft Extremities: no cyanosis or clubbing; Trace edema Skin: chronic venous stasis dermatitis below his knees and also an additional rash about which he is going to see a swimming pool serviceperson as an outpatient Objective Data Vital Signs Vital Signs: Vital Signs - 24 hr 11/14/20 12:00 11/14/20 12:54 11/14/20 16:00 Temperature 37.1 C 36.2 C L Pulse Rate 78 70 Respiratory Rate 18 18 Blood Pressure 82/48 L 94/54 L 102/72 Pulse Oximetry 94 98 11/14/20 17:06 11/14/20 20:00 11/15/20 00:00 Temperature 37.2 C 36.7 C Pulse Rate 70 76 73 Respiratory Rate 16 16 Blood Pressure 110/70 102/50 L Pulse Oximetry 97 97 11/15/20 03:53 11/15/20 08:00 Temperature 36.7 C 36.3 C L Pulse Rate 78 61 Respiratory Rate 16 14 Blood Pressure 102/52 L 131/61 Pulse Oximetry 98 97 Intake/Output Intake/Output: Intake & Output 11/12/20 11/13/20 11/14/20 11/15/20 23:59 23:59 23:59 23:59 Intake Total 1230 1780 2045 540 Output Total 100 2500 100 Balance 1130 -720 1945 540 Meds/Results Medications: Active Medications Generic Name Dose Route Start Last Admin Trade Name Freq PRN Reason Stop Dose Admin Acetaminophen 650 mg 11/12/20 12:11 Acetaminophen 325 Mg Tablet PO Q4H PRN Pain 1- 3 Or Fever
[2020-11-15 11:33] LABS: Glucose Point of Care 206 mg/dl (65-105)
[2020-11-15] MEDS: INSULIN ASPART (*BKC) 100 UNITS/ML SUB-Q (12:01)
--- NOTE | 2020-11-15 13:10 | PC.NURSE ---
To dialysis per bed. Iron IVPB given to dialysis nurse to infuse per her instructions.
[2020-11-15] MEDS: SODIUM CHLORIDE 0.9% IV 1,000 ML 999 ML IV CONT (14:29)
[2020-11-15] MEDS: IRON SUCROSE COMPLEX 200 MG in SODIUM CHLORIDE 0.9% IV 50 ML 120 MG IVPB (14:30)
[2020-11-15] MEDS: EPOETIN ALFA-EPBX 10,000 UNITS/ML VIAL 10000 UNITS IV PUSH (14:31)
[2020-11-15] MEDS: ALBUMIN HUMAN 25% 12.5 GM/50ML 50 ML IVPB (14:36)
--- NOTE | 2020-11-15 15:16 | P.PNIM_ITS ---
Progress Note: A&P Assessment and Plan (1) Hypotension: Code(s): I95.9 - Hypotension, unspecified Status: Acute Assessment and Plan: Patient has been having low normal blood pressures. This morning he was sl ightly low at 89/48. Patient was reporting lightheadedness and dizziness while sitting up in the chair. Manual blood pressure was taken which showed he was hypotensive 82/48. ordered for 250 cc fluid bolus to be administered and manually recheck blood pressure. blood pressure was not called to me it was 94/54. * Believe it is due to over diuresis since he did receive his medications this morning even with a low blood pressure, Metolazone, Bumex, Toprol and Entresto. * 11/14/20- Talked to Nephrology and we held his diuretics, Metolazone and Bumex. * 11/15/20- BP was better 131/61 before Toprol and Entresto was given. Blood pressure when he arrived at dialysis was 73/38. He was given IV Albumin by Dialysis nurse, who has been talking with the Financial Retirement Plan Specialist with ordered. I talked to Dr. Westbrook who recommended for the dialysis nurse not to take much fluid off. I talked to Dr. Anne Cardiology about the patients Entresto causing hypotension. Dr. Anne recommended discontinuing his Entresto for now and monitoring his blood pressure. * Will continue Toprol 12.5 mg and continue monitoring BP. * Patient also has some crackles to his lungs bilaterally, worried about pulmonary edema. He is on dialysis right now, he was only urinating about 8 oz per day while on diuretics which were discontinued yesterday. Worried about Multisystem organ failure with Systolic CHF with possible pulmonary edema, ESRD with dialysis. Will continue monitoring and Specialist input is greatly appreciated. * He cannot have Maurilio hose on due to his leg wounds. Continue monitoring. (2) ANDRADE (acute kidney injury): Code(s): N17.9 - Acute kidney failure, unspecified Status: Acute Assessment and Plan: * s/p right IJ dialysis catheter placement by Dr Hart 11/10/20. Has dialysis scheduled M/W/F for now. * Cr 5.7/ BUN 58 today. * Appreciate nephrology recommendations. * *11/14- Discontinued Bumex and Metolazone per Nephrology * Renal US unremarkable. Renal biopsy 08/07/20 which showed acute tubular injury. * Blood pressures being monitored Q4hr (3) Chronic anticoagulation: Code(s): Z79.01 - care home (current) use of anticoagulants Status: Acute Assessment and Plan: * Patient has a mechanical aortic valve maintained on long-term anticoagulation with Warfarin. * Heparin gtt was initiated 11/08 in order to keep him anticoagulated while we held warfarin for his surgery. * Received FFP early AM 11/10 prior to his procedure. * Warfarin resumed 11/11. Will discontinue IV Heparin 11/14/20. * INR 3.0 today. * Previous provider, contacted his [facility] international logistics analyst office. He used to follow with Dr Hall who is retiring, he is to now follow with Dr Jenna Bond at [facility] but has not had his first appointment yet. I spoke with their office and confirmed Dr Bond will be the one to follow his INR and warfarin dosing following discharge. ([phone]; warfarin clinic at [phone]) (4) Anemia in CKD (chronic kidney disease): Qualifiers: Chronic kidney disease stage: unspecified stage Qualified Code(s): N18.9 - Chronic kidney disease, unspecified; D63.1 - Anemia in chronic kidney disease Code(s): N18.9 - Chronic kidney disease, unspecified; D63.1 - Anemia in chr
--- NOTE | 2020-11-15 15:16 | PM.IMPN ---
Progress Note: A&P Assessment and Plan (1) Hypotension: Code(s): I95.9 - Hypotension, unspecified Status: Acute Assessment and Plan: Patient has been having low normal blood pressures. This morning he was slightly low at 89/48. Patient was reporting lightheadedness and dizziness while sitting up in the chair. Manual blood pressure was taken which showed he was hypotensive 82/48. ordered for 250 cc fluid bolus to be administered and manually recheck blood pressure. blood pressure was not called to me it was 94/54. Believe it is due to over diuresis since he did receive his medications this morning even with a low blood pressure, Metolazone, Bumex, Toprol and Entresto. 11/14/20- Talked to Nephrology and we held his diuretics, Metolazone and Bumex. 11/15/20- BP was better 131/61 before Toprol and Entresto was given. Blood pressure when he arrived at dialysis was 73/38. He was given IV Albumin by Dialysis nurse, who has been talking with the Lay Out Machine Operator with ordered. I talked to Dr. Westbrook who recommended for the dialysis nurse not to take much fluid off. I talked to Dr. Anne Cardiology about the patients Entresto causing hypotension. Dr. Anne recommended discontinuing his Entresto for now and monitoring his blood pressure. Will continue Toprol 12.5 mg and continue monitoring BP. Patient also has some crackles to his lungs bilaterally, worried about pulmonary edema. He is on dialysis right now, he was only urinating about 8 oz per day while on diuretics which were discontinued yesterday. Worried about Multisystem organ failure with Systolic CHF with possible pulmonary edema, ESRD with dialysis. Will continue monitoring and Specialist input is greatly appreciated. He cannot have Maurilio hose on due to his leg wounds. Continue monitoring. (2) ANDRADE (acute kidney injury): Code(s): N17.9 - Acute kidney failure, unspecified Status: Acute Assessment and Plan: s/p right IJ dialysis catheter placement by Dr Hart 11/10/20. Has dialysis scheduled M/W/F for now. Cr 5.7/ BUN 58 today. Appreciate nephrology recommendations. *11/14- Discontinued Bumex and Metolazone per Nephrology Renal US unremarkable. Renal biopsy 08/07/20 which showed acute tubular injury. 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 Heparin gtt was initiated 11/08 in order to keep him anticoagulated while we held warfarin for his surgery. Received FFP early AM 11/10 prior to his procedure. Warfarin resumed 11/11. Will discontinue IV Heparin 11/14/20. INR 3.0 today. 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 He used to follow with Dr Hall who is retiring, he is to now follow with Dr Jenna Bond at [facility] but has not had his first appointment yet. I spoke with their office and confirmed Dr Bond will be the one to follow his INR and warfarin dosing following discharge. ([phone]; warfarin clinic at [phone]) (4) Anemia in CKD (chronic kidney disease): Qualifiers: Chronic kidney disease stage: unspecified stage Qualified Code(s): N18.9 - Chronic kidney disease, unspecified; D63.1 - Anemia in chronic kidney disease Code(s): N18.9 - Chronic kidney disease, unspecified; D63.1 - Anemia in chronic kidney disease Status: Acute Assessment and Plan: Hgb remains low but stable without evidence of acute bleeding. Transfused 2 units pRBC 11/02. Suspect related to anemia of CKD and other comorbid conditions. Also with positive occult blood in stool but H&H otherwise stable. Bone marrow biopsy July 2020 consistent with multiple myelom
--- NOTE | 2020-11-15 16:57 | PM.EVENT ---
Event Note Event Note Event Note: pt is on dialysis and bp has been variable. no fluid removed so far and will leave UF off. seen at 4:30pm
[2020-11-15 17:14] LABS: Glucose Point of Care 101 mg/dl (65-105)
[2020-11-15] MEDS: METOPROLOL SUCCINATE EXT REL 12.5 MG TABCR PO (17:23)
[2020-11-15] MEDS: WARFARIN (*PBKC) 3 MG TABLET PO (17:23)
[2020-11-15] MEDS: HYDROcodone/acetaminophen (*CRX) 5-325 MG TABLET 1 TAB PO (17:28)
[2020-11-15] MEDS: diphenhydrAMINE HCl CAP 25 MG CAPSULE PO (17:28)
[2020-11-15] MEDS: traZODone HCL 25 MG TABLET PO (20:56)
[2020-11-15] MEDS: ATORVASTATIN 40 MG TABLET PO (20:56)
[2020-11-15] MEDS: SENNOSIDES 8.6 MG TABLET 17.2 MG PO (20:57)
[2020-11-15] MEDS: MELATONIN 3 MG TABLET 6 MG PO (20:57)
[2020-11-15 21:04] LABS: Glucose Point of Care 204 mg/dl (65-105)
[2020-11-16] VITALS (7 sets, daily range): BP systolic 104–134; BP diastolic 52–64; PULSE 72–94; RESP 14–18; TEMP 35.9–36.7; O2SAT 95–100
[2020-11-16 07:19] LABS: Hematocrit 29.4 % (42.0-52.0); Hemoglobin 9.1 g/dL (14.0-18.0); Immature Platelet Fraction Pct 13.2 % (0.9-11.2); Mean Corpuscular Hemoglobin 27.2 pg (26-34); Mean Corpuscular Volume 87.8 fl (80-100); Platelet Count Result 86 k/mm3 (150-375); Red Blood Count 3.35 M/mm3 (4.6-6.20); Red Cell Distribution Width 17.6 % (11.5-14.5); White Blood Count 7.3 K/mm3 (4.5-10.0)
[2020-11-16 07:31] LABS: INR 3.3; Prothrombin Time 32.5 Seconds (11.1-14.7)
[2020-11-16 07:47] LABS: Glucose Point of Care 103 mg/dl (65-105)
[2020-11-16 07:59] LABS: Albumin Level 3.8 g/dL (3.5-5.1); Anion Gap 9 mmol/L (8-16); Blood Urea Nitrogen 29 mg/dL (9-20); Calcium 9.2 mg/dL (8.4-10.2); Carbon Dioxide 26 mmol/L (22-30); Chloride 100 mmol/L (98-107); Estimated CRCL calculation 19 ml/min; Estimated Glomerular Filt Rate 17; Glucose 112 mg/dL (65-110); Phosphorus 4.8 mg/dL (2.5-4.5); Potassium 4.2 mmol/L (3.4-5.0); Sodium 135 mmol/L (137-145)
[2020-11-16] MEDS: ASCORBIC ACID 500 MG TABLET PO ×2 (09:43→17:31)
[2020-11-16] MEDS: DULoxetine HCL 30 MG CAPSULE.DR PO (09:43)
[2020-11-16] MEDS: MAGNESIUM OXIDE 200 MG TABLET PO ×2 (09:45→20:38)
[2020-11-16] MEDS: FINASTERIDE 5 MG TABLET PO (09:45)
[2020-11-16] MEDS: LACTIC ACID 12% LOTION 225 BTL 1 APPLIC TOPICAL (09:46)
[2020-11-16] MEDS: PANTOPRAZOLE 40 MG TABLET PO (09:47)
[2020-11-16] MEDS: IRON SUCROSE COMPLEX 200 MG in SODIUM CHLORIDE 0.9% IV 50 ML 120 MG IVPB (09:59)
[2020-11-16] MEDS: PREGABALIN (*CRX) 75 MG CAPSULE PO ×2 (10:00→17:52)
[2020-11-16] MEDS: guaiFENesin/DEXTROMETHORPHAN 10 ML UDC 5 ML PO ×3 (10:08→21:32)
--- NOTE | 2020-11-16 10:38 | PM.PNCARD ---
Progress Note: A&P Assessment and Plan (1) CHF (congestive heart failure): Qualifiers: Heart failure chronicity: acute on chronic Heart failure type: unspecified Qualified Code(s): I50.9 - Heart failure, unspecified Code(s): I50.9 - Heart failure, unspecified Status: Chronic Assessment and Plan: 74-year-old male with CAD, CHF /biventricular failure with reduced LVEF at 30-35% from 10/29/2019 echocardiogram; history of [place] mechanical aortic valve replacement and CABG with unknown graft (in 1982 as per patient, op report not available); atrial fibrillation on chronic anticoagulation with warfarin; CKD, chronic anemia, multiple myeloma. patient admitted from longterm with acute on chronic renal insufficiency, hyperkalemia. He has chronic biventricular failure, last EF 30 - 35% from 10/29/2019 echo, and currently has volume overload in the setting of CHF and renal insufficiency. - Sacubitril/valsartan discontinued due to hypotension - Patient has not had regular cardiology follow-up. Patient is willing to follow up with us for longitudinal cardiac care after hospital discharge. - Coumadin has been restarted for AVR, Afib. INR today is 3.3 (2) History of mechanical aortic valve replacement: Code(s): Z95.2 - Presence of prosthetic heart valve Status: Acute Assessment and Plan: History of remote mechanical aortic valve replacement with normal functioning valve from 10/29/2019 echo with a mean gradient of 5 mmHg. Continue anticoagulation with warfarin. Today INR is 3.3 (3) Atrial fibrillation: Qualifiers: Atrial fibrillation type: unspecified Qualified Code(s): I48.91 - Unspecified atrial fibrillation Code(s): I48.91 - Unspecified atrial fibrillation Status: Chronic Assessment and Plan: Fairly rate controlled with low-dose metoprolol tartrate. Rate control plus anticoagulation. (4) Supratherapeutic INR: Code(s): R79.1 - Abnormal coagulation profile Status: Acute Assessment and Plan: INR 3.3 (from 3.0, 2.2). Decrease warfarin to 2mg tonight. (5) Neuropathy: Code(s): G62.9 - Polyneuropathy, unspecified Status: Acute Assessment and Plan: management of other medical problems as per primary team including local wound care. Subjective Date/time seen: 11/16/20 10:38 Interval history: 74-year-old man with: Valvular heart disease, coronary artery disease remote history of CABG and aortic valve replacement with a mechanical prosthesis. Patient enters the hospital with volume overload has a complex situation with left ventricular systolic dysfunction as well as development of end-stage renal disease. Dialysis catheter was placed Friday and the patient now is on renal replacement therapy. He appears to be relatively comfortable this afternoon. Discussed resuming Entresto now that he has on dialysis. The patient and his seemed to be surprised and a bit taken aback by my conversation that he has a significantly weakened heart. Despite his extensive history it seems that they did not have a good understanding of this situation Date of service 11/13/2020: Patient is comfortable he seems rather somnolent this afternoon but offers no cardiovascular complaints. Shared with the patient that his INR is coming up in is now 1.8. Hopefully by tomorrow we can stop his heparin drip Date of service 11/16/2020: Patient states he is feeling well today. He has a productive cough but otherwise no complaints. He is asking about his dialysis schedule - told him that for now he is on a MWF schedule. LE edema has significantly improved. Review of Systems Review of Systems: All systems reviewed & are unremarkable except as noted in HPI and below Constitutional: Constitutional: Reports difficulty sleeping and Reports lethargy Eyes: Eyes: Denies change in vision ENT: Reports Normal hearing present a
[2020-11-16 12:20] LABS: Glucose Point of Care 140 mg/dl (65-105)
--- NOTE | 2020-11-16 12:35 | P.PNIM_ITS ---
Progress Note: A&P Assessment and Plan (1) Hypotension: Code(s): I95.9 - Hypotension, unspecified Status: Acute Assessment and Plan: Patient has been having low normal blood pressures. This morning he was sl ightly low at 89/48. Patient was reporting lightheadedness and dizziness while sitting up in the chair. Manual blood pressure was taken which showed he was hypotensive 82/48. ordered for 250 cc fluid bolus to be administered and manually recheck blood pressure. blood pressure was not called to me it was 94/54. * Believe it is due to over diuresis since he did receive his medications this morning even with a low blood pressure, Metolazone, Bumex, Toprol and Entresto. * 11/14/20- Talked to Nephrology and we held his diuretics, Metolazone and Bumex. * 11/15/20- BP was better 131/61 before Toprol and Entresto was given. Blood pressure when he arrived at dialysis was 73/38. He was given IV Albumin by Dialysis nurse, who has been talking with the Degreasing Solution Reclaimer with ordered. I talked to Dr. Westbrook who recommended for the dialysis nurse not to take much fluid off. I talked to Dr. Anne Cardiology about the patients Entresto causing hypotension. Dr. Anne recommended discontinuing his Entresto for now and monitoring his blood pressure. * 11/16/20- BP 134/58 this morning. Patient is not having any lightheadedness symptoms. Continue to hold diuretics and Entresto per cardiology. * Will continue Toprol 12.5 mg and continue monitoring BP * He cannot have Maurilio hose on due to his leg wounds. Continue monitoring. (2) ANDRADE (acute kidney injury): Code(s): N17.9 - Acute kidney failure, unspecified Status: Acute Assessment and Plan: * s/p right IJ dialysis catheter placement by Dr Hart 11/10/20. Has dialysis scheduled M/W/F for now. * Cr 3.5/ BUN 29 today. * Appreciate nephrology recommendations. * Renal US unremarkable. Renal biopsy 08/07/20 which showed acute tubular injury. * Blood pressures being monitored Q4hr (3) Chronic anticoagulation: Code(s): Z79.01 - manager long term care (current) use of anticoagulants Status: Acute Assessment and Plan: * Patient has a mechanical aortic valve maintained on long-term anticoagulation with Warfarin. * Heparin gtt was initiated 11/08 in order to keep him anticoagulated while we held warfarin for his surgery. * Received FFP early AM 11/10 prior to his procedure. * Warfarin resumed 11/11. Will discontinue IV Heparin 11/14/20. * INR 3.3 today. --WILL HOLD Warfarin dose tonight, recheck tomorrow. * Previous provider, contacted his [facility] intellectual property paralegal office. He used to follow with Dr Hall who is retiring, he is to now follow with Dr Jenna Bond at [facility] but has not had his first appointment yet. I spoke with their office and confirmed Dr Bond will be the one to follow his INR and warfarin dosing following discharge. ([phone]; warfarin clinic at [phone]) (4) Anemia in CKD (chronic kidney disease): Qualifiers: Chronic kidney disease stage: unspecified stage Qualified Code(s): N18.9 - Chronic kidney disease, unspecified; D63.1 - Anemia in chronic kidney disease Code(s): N18.9 - Chronic kidney disease, unspecified; D63.1 - Anemia in chronic kidney disease Status: Acute Assessment and Plan: * Hgb remains low but stable without evidence of acute bleeding. Transfused 2 units pRBC 11/02. * Suspect related to anemia of CKD and other comorbid conditions. Also with positive o
--- NOTE | 2020-11-16 12:35 | PM.IMPN ---
Progress Note: A&P Assessment and Plan (1) Hypotension: Code(s): I95.9 - Hypotension, unspecified Status: Acute Assessment and Plan: Patient has been having low normal blood pressures. This morning he was slightly low at 89/48. Patient was reporting lightheadedness and dizziness while sitting up in the chair. Manual blood pressure was taken which showed he was hypotensive 82/48. ordered for 250 cc fluid bolus to be administered and manually recheck blood pressure. blood pressure was not called to me it was 94/54. Believe it is due to over diuresis since he did receive his medications this morning even with a low blood pressure, Metolazone, Bumex, Toprol and Entresto. 11/14/20- Talked to Nephrology and we held his diuretics, Metolazone and Bumex. 11/15/20- BP was better 131/61 before Toprol and Entresto was given. Blood pressure when he arrived at dialysis was 73/38. He was given IV Albumin by Dialysis nurse, who has been talking with the Computer Technical Support Specialist with ordered. I talked to Dr. Westbrook who recommended for the dialysis nurse not to take much fluid off. I talked to Dr. Anne Cardiology about the patients Entresto causing hypotension. Dr. Anne recommended discontinuing his Entresto for now and monitoring his blood pressure. 11/16/20- BP 134/58 this morning. Patient is not having any lightheadedness symptoms. Continue to hold diuretics and Entresto per cardiology. Will continue Toprol 12.5 mg and continue monitoring BP He cannot have Maurilio hose on due to his leg wounds. Continue monitoring. (2) ANDRADE (acute kidney injury): Code(s): N17.9 - Acute kidney failure, unspecified Status: Acute Assessment and Plan: s/p right IJ dialysis catheter placement by Dr Hart 11/10/20. Has dialysis scheduled M/W/F for now. Cr 3.5/ BUN 29 today. Appreciate nephrology recommendations. Renal US unremarkable. Renal biopsy 08/07/20 which showed acute tubular injury. 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 Heparin gtt was initiated 11/08 in order to keep him anticoagulated while we held warfarin for his surgery. Received FFP early AM 11/10 prior to his procedure. Warfarin resumed 11/11. Will discontinue IV Heparin 11/14/20. INR 3.3 today. --WILL HOLD Warfarin dose tonight, recheck tomorrow. 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 He used to follow with Dr Hall who is retiring, he is to now follow with Dr Jenna Bond at [facility] but has not had his first appointment yet. I spoke with their office and confirmed Dr Bond will be the one to follow his INR and warfarin dosing following discharge. ([phone]; warfarin clinic at [phone]) (4) Anemia in CKD (chronic kidney disease): Qualifiers: Chronic kidney disease stage: unspecified stage Qualified Code(s): N18.9 - Chronic kidney disease, unspecified; D63.1 - Anemia in chronic kidney disease Code(s): N18.9 - Chronic kidney disease, unspecified; D63.1 - Anemia in chronic kidney disease Status: Acute Assessment and Plan: Hgb remains low but stable without evidence of acute bleeding. Transfused 2 units pRBC 11/02. Suspect related to anemia of CKD and other comorbid conditions. Also with positive occult blood in stool but H&H otherwise stable. Bone marrow biopsy July 2020 consistent with multiple myeloma however not requiring tx at this time. Monitor CBC and transfuse prn. Continue PO iron supplementation Received 20,000 units Epogen 11/02. F/u with Dr. Nowak in 2 weeks (5) CHF (congestive heart failure):
--- NOTE | 2020-11-16 14:48 | P.PNNP_ITS ---
Progress Note: A&P Assessment and Plan (1) ANDRADE (acute kidney injury): Code(s): N17.9 - Acute kidney failure, unspecified Status: Acute Assessment and Plan: * ANDRADE * urine electrolytes non pre renal * urine eosinophils negative * ultrasound negative * UA shows blood and leukocytes. Urine culture showed Pseudomonas. * He is on imipenem. * dialysis catheter is in. * He will be going to hemodialysis tomorrow. * Outpatient dialysis is being arranged. (2) Chronic kidney disease, stage IV (severe): Code(s): N18.4 - Chronic kidney disease, stage 4 (severe) Status: Chronic Assessment and Plan: * baseline creatinine ~ 1.6 - 2.1mg/dl since January 2020 * Will see if he recovers function enough to get off dialysis. (3) Urinary tract infection: Code(s): N39.0 - Urinary tract infection, site not specified Status: Acute Assessment and Plan: * off antibiotics (4) Hyperkalemia: Code(s): E87.5 - Hyperkalemia Status: Acute Assessment and Plan: * resolved (5) Hypertension: Qualifiers: Hypertension type: unspecified Qualified Code(s): I10 - Essential (primary) hypertension Code(s): I10 - Essential (primary) hypertension Status: Chronic Assessment and Plan: * Blood pressure doing pretty well (6) A-fib: Code(s): I48.91 - Unspecified atrial fibrillation Status: Chronic Assessment and Plan: * He is on metoprolol for rate control. * His blood pressure is doing pretty well right now. Heart rate is reasonable. (7) Edema: Code(s): R60.9 - Edema, unspecified Status: Acute Assessment and Plan: Swelling is much better. (8) Rash: Code(s): R21 - Rash and other nonspecific skin eruption Status: Acute Assessment and Plan: apparently chronic. symptomatic tx He still has significant eosinophilia. 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 He feels okay. sitting up in a chair. Exam Narrative: General: WD/WN male in NAD Heart: irregular rate and rhythm. no rub Lungs: clear Abdomen: BS+ nontender and soft Extremities: no cyanosis or clubbing; Trace edema Skin: chronic venous stasis dermatitis below his knees and also an additional rash about which he is going to see a lactation coordinator as an outpatient Objective Data Vital Signs Vital Signs: Vital Signs - 24 hr 11/15/20 15:00 11/15/20 15:15 11/15/20 15:30 Temperature Pulse Rate 83 83 81 Respiratory Rate Blood Pressure 95/41 L 109/53 L 135/47 L Pulse Oximetry 11/15/20 15:45 11/15/20 16:00 11/15/20 16:15 Temperature Pulse Rate 78 75 90 Respiratory Rate Blood Pressure 107/51 L 123/54 L 135/60 Pulse Oximetry 11/15/20 16:30 11/15/20 16:49 11/15/20 17:00 Temperature 36.3 C L Pulse Rate 79 76 89 Respiratory Rate 16 Blood Pressure 137/63 146/52 H 145/69 H
--- NOTE | 2020-11-16 14:48 | PM.PNNEP ---
Progress Note: A&P Assessment and Plan (1) ANDRADE (acute kidney injury): Code(s): N17.9 - Acute kidney failure, unspecified Status: Acute Assessment and Plan: ANDRADE urine electrolytes non pre renal urine eosinophils negative ultrasound negative UA shows blood and leukocytes. Urine culture showed Pseudomonas. He is on imipenem. dialysis catheter is in. He will be going to hemodialysis tomorrow. Outpatient dialysis is being arranged. (2) Chronic kidney disease, stage IV (severe): Code(s): N18.4 - Chronic kidney disease, stage 4 (severe) Status: Chronic Assessment and Plan: baseline creatinine ~ 1.6 - 2.1mg/dl since January 2020 Will see if he recovers function enough to get off dialysis. (3) Urinary tract infection: Code(s): N39.0 - Urinary tract infection, site not specified Status: Acute Assessment and Plan: off antibiotics (4) Hyperkalemia: Code(s): E87.5 - Hyperkalemia Status: Acute Assessment and Plan: resolved (5) Hypertension: Qualifiers: Hypertension type: unspecified Qualified Code(s): I10 - Essential (primary) hypertension Code(s): I10 - Essential (primary) hypertension Status: Chronic Assessment and Plan: Blood pressure doing pretty well (6) A-fib: Code(s): I48.91 - Unspecified atrial fibrillation Status: Chronic Assessment and Plan: He is on metoprolol for rate control. His blood pressure is doing pretty well right now. Heart rate is reasonable. (7) Edema: Code(s): R60.9 - Edema, unspecified Status: Acute Assessment and Plan: Swelling is much better. (8) Rash: Code(s): R21 - Rash and other nonspecific skin eruption Status: Acute Assessment and Plan: apparently chronic. symptomatic tx He still has significant eosinophilia. 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 He feels okay. sitting up in a chair. Exam Narrative: General: WD/WN male in NAD Heart: irregular rate and rhythm. no rub Lungs: clear Abdomen: BS+ nontender and soft Extremities: no cyanosis or clubbing; Trace edema Skin: chronic venous stasis dermatitis below his knees and also an additional rash about which he is going to see a automatic stacker as an outpatient Objective Data Vital Signs Vital Signs: Vital Signs - 24 hr 11/15/20 15:00 11/15/20 15:15 11/15/20 15:30 Temperature Pulse Rate 83 83 81 Respiratory Rate Blood Pressure 95/41 L 109/53 L 135/47 L Pulse Oximetry 11/15/20 15:45 11/15/20 16:00 11/15/20 16:15 Temperature Pulse Rate 78 75 90 Respiratory Rate Blood Pressure 107/51 L 123/54 L 135/60 Pulse Oximetry 11/15/20 16:30 11/15/20 16:49 11/15/20 17:00 Temperature 36.3 C L Pulse Rate 79 76 89 Respiratory Rate 16 Blood Pressure 137/63 146/52 H 145/69 H Pulse Oximetry 11/15/20 17:23 11/15/20 20:00 11/16/20 00:00 Temperature 35.9 C L 35.9 C L Pulse Rate 89 86 73 Respiratory Rate 18 18 Blood Pressure 108/55 L 104/52 L Pulse Oximetry 99 96 11/16/20 04:00 11/16/20 08:00 11/16/20 12:00 Temperature 35.9 C L 36.7 C 36.7 C Pulse Rate 72 73 94 Respiratory Rate 18 14 16 Blood Pressure 122/63 134/58 L 126/62 Pulse Oximetry 95 98 99 Intake/Output Intake/Output: Intake & Output 11/13/20 11/14/20 11/15/20 11/16/20 23:59 23:59 23:59 23:59 Intake Total 1780 2045 1800 830 Output Total 2500 100 100 Balance -720 1945 1700 830 Meds/Results Medications: Active Medications Generic Name Dose Route Start Last Admin Trade Name Freq PRN Reason Stop Dose Admin Ac
[2020-11-16 16:43] LABS: Glucose Point of Care 105 mg/dl (65-105)
[2020-11-16] MEDS: TAMSULOSIN HCL 0.4 MG CAPSULE PO (17:32)
[2020-11-16] MEDS: METOPROLOL SUCCINATE EXT REL 12.5 MG TABCR PO (17:32)
[2020-11-16] MEDS: WARFARIN (*PBKC) 2 MG TABLET PO (17:33)
[2020-11-16] MEDS: ATORVASTATIN 40 MG TABLET PO (20:37)
[2020-11-16] MEDS: MELATONIN 3 MG TABLET 6 MG PO (20:37)
[2020-11-16] MEDS: traZODone HCL 25 MG TABLET PO (20:37)
[2020-11-16] MEDS: SENNOSIDES 8.6 MG TABLET 17.2 MG PO (20:38)
[2020-11-16] MEDS: ACETAMINOPHEN 325 MG TABLET 650 MG PO (20:43)
[2020-11-16] MEDS: diphenhydrAMINE HCl CAP 25 MG CAPSULE PO (20:44)
[2020-11-16 21:13] LABS: Glucose Point of Care 185 mg/dl (65-105)
[2020-11-16] MEDS: HYDROcodone/acetaminophen (*CRX) 5-325 MG TABLET 1 TAB PO (22:04)
[2020-11-17] VITALS (19 sets, daily range): BP systolic 94–164; BP diastolic 37–81; PULSE 61–887; RESP 14–20; TEMP 36.1–37; O2SAT 95–100
[2020-11-17 08:10] LABS: Glucose Point of Care 106 mg/dl (65-105)
--- NOTE | 2020-11-17 08:52 | PC.NURSE ---
To dialysis @ 1080 per bed.
[2020-11-17 09:17] LABS: INR 3.7; Prothrombin Time 35.7 Seconds (11.1-14.7)
--- NOTE | 2020-11-17 09:20 | P.PNIM_ITS ---
Progress Note: A&P Assessment and Plan (1) Discharge planning issues: Code(s): Z02.9 - Encounter for administrative examinations, unspecified Status: Acute Assessment and Plan: Waiting on Core Hep B Antibody before dialysis chair can be arranged. Otherwise stable for discharge pending SNF placement and dialysis chair. -Otherwise BP is more stable, symptoms stable. Ready for discharge once SNF accepts and we have a dialysis bed. (2) Hypotension: Code(s): I95.9 - Hypotension, unspecified Status: Acute Assessment and Plan: Patient has been having low normal blood pressures. This morning he was slightly low at 89/48. Patient was reporting lightheadedness and dizziness while sitting up in the chair. Manual blood pressure was taken which showed he was hypotensive 82/48. ordered for 250 cc fluid bolus to be administered and manually recheck blood pressure. blood pressure was not called to me it was 94/54. * Believe it is due to over diuresis since he did receive his medications this morning even with a low blood pressure, Metolazone, Bumex, Toprol and Entresto. * 11/14/20- Talked to Nephrology and we held his diuretics, Metolazone and Bumex. * 11/15/20- BP was better 131/61 before Toprol and Entresto was given. Blood pressure when he arrived at dialysis was 73/38. He was given IV Albumin by Dialysis nurse, who has been talking with the Central Office Mechanic with ordered. I talked to Dr. Westbrook who recommended for the dialysis nurse not to take much fluid off. I talked to Dr. Anne Cardiology about the patients Entresto causing hypotension. Dr. Anne recommended discontinuing his Entresto for now and monitoring his blood pressure. * 11/17/20- BP 112/44 this morning. Patient is not having any lightheadedness symptoms. Continue to hold diuretics and Entresto per cardiology. * Will continue Toprol 12.5 mg and continue monitoring BP * He cannot have Maurilio hose on due to his leg wounds. Continue monitoring. (3) ANDRADE (acute kidney injury): Code(s): N17.9 - Acute kidney failure, unspecified Status: Acute Assessment and Plan: * s/p right IJ dialysis catheter placement by Dr Hart 11/10/20. Has dialysis scheduled M/W/F for now. * Appreciate nephrology recommendations. * Renal US unremarkable. Renal biopsy 08/07/20 which showed acute tubular injury. 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 * Heparin gtt was initiated 11/08 in order to keep him anticoagulated while we held warfarin for his surgery. * Received FFP early AM 11/10 prior to his procedure. * Warfarin resumed 11/11. Will discontinue IV Heparin 11/14/20. * INR 3.7 today. --Cardiology decreased Warfarin to 2 mg last night instead of 3mg. * Previous provider, contacted his [facility] benefits specialist recruiter office. He used to follow with Dr Hall who is retiring, he is to now follow with Dr Jenna Bond at [facility] but has not had his first appointment yet. I spoke with their office and confirmed Dr Bond will be the one to follow his INR and warfarin dosing following discharge. ([phone]; warfarin clinic at [phone]) (5) Anemia in CKD (chronic kidney disease): Qualifiers: Chronic kidney disease stage: unspec
--- NOTE | 2020-11-17 09:20 | PM.IMPN ---
Progress Note: A&P Assessment and Plan (1) Discharge planning issues: Code(s): Z02.9 - Encounter for administrative examinations, unspecified Status: Acute Assessment and Plan: Waiting on Core Hep B Antibody before dialysis chair can be arranged. Otherwise stable for discharge pending SNF placement and dialysis chair. -Otherwise BP is more stable, symptoms stable. Ready for discharge once SNF accepts and we have a dialysis bed. (2) Hypotension: Code(s): I95.9 - Hypotension, unspecified Status: Acute Assessment and Plan: Patient has been having low normal blood pressures. This morning he was slightly low at 89/48. Patient was reporting lightheadedness and dizziness while sitting up in the chair. Manual blood pressure was taken which showed he was hypotensive 82/48. ordered for 250 cc fluid bolus to be administered and manually recheck blood pressure. blood pressure was not called to me it was 94/54. Believe it is due to over diuresis since he did receive his medications this morning even with a low blood pressure, Metolazone, Bumex, Toprol and Entresto. 11/14/20- Talked to Nephrology and we held his diuretics, Metolazone and Bumex. 11/15/20- BP was better 131/61 before Toprol and Entresto was given. Blood pressure when he arrived at dialysis was 73/38. He was given IV Albumin by Dialysis nurse, who has been talking with the Engineering Mathematician with ordered. I talked to Dr. Westbrook who recommended for the dialysis nurse not to take much fluid off. I talked to Dr. Anne Cardiology about the patients Entresto causing hypotension. Dr. Anne recommended discontinuing his Entresto for now and monitoring his blood pressure. 11/17/20- BP 112/44 this morning. Patient is not having any lightheadedness symptoms. Continue to hold diuretics and Entresto per cardiology. Will continue Toprol 12.5 mg and continue monitoring BP He cannot have Maurilio hose on due to his leg wounds. Continue monitoring. (3) ANDRADE (acute kidney injury): Code(s): N17.9 - Acute kidney failure, unspecified Status: Acute Assessment and Plan: s/p right IJ dialysis catheter placement by Dr Hart 11/10/20. Has dialysis scheduled M/W/F for now. Appreciate nephrology recommendations. Renal US unremarkable. Renal biopsy 08/07/20 which showed acute tubular injury. 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 Heparin gtt was initiated 11/08 in order to keep him anticoagulated while we held warfarin for his surgery. Received FFP early AM 11/10 prior to his procedure. Warfarin resumed 11/11. Will discontinue IV Heparin 11/14/20. INR 3.7 today. --Cardiology decreased Warfarin to 2 mg last night instead of 3mg. 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 He used to follow with Dr Hall who is retiring, he is to now follow with Dr Jenna Bond at [facility] but has not had his first appointment yet. I spoke with their office and confirmed Dr Bond will be the one to follow his INR and warfarin dosing following discharge. ([phone]; warfarin clinic at [phone]) (5) Anemia in CKD (chronic kidney disease): Qualifiers: Chronic kidney disease stage: unspecified stage Qualified Code(s): N18.9 - Chronic kidney disease, unspecified; D63.1 - Anemia in chronic kidney disease Code(s): N18.9 - Chronic kidney disease, unspecified; D63.1 - Anemia in chronic kidney disease Status: Acute Assessment and Plan: Hgb remains low but stable without evidence of acute bleeding. Transfused 2 units pRBC 11/02. S
--- NOTE | 2020-11-17 09:37 | PM.PNNEP ---
Progress Note: A&P Assessment and Plan (1) ANDRADE (acute kidney injury): Code(s): N17.9 - Acute kidney failure, unspecified Status: Acute Assessment and Plan: ANDRADE urine electrolytes non pre renal urine eosinophils negative ultrasound negative UA shows blood and leukocytes. Urine culture showed Pseudomonas. He is on imipenem. dialysis catheter is in. hemodialysis ongoing arrangements are being made for outpatient dialysis. Outpatient dialysis is being arranged. (2) Chronic kidney disease, stage IV (severe): Code(s): N18.4 - Chronic kidney disease, stage 4 (severe) Status: Chronic Assessment and Plan: baseline creatinine ~ 1.6 - 2.1mg/dl since January 2020 Will see if he recovers function enough to get off dialysis. (3) Urinary tract infection: Code(s): N39.0 - Urinary tract infection, site not specified Status: Acute Assessment and Plan: off antibiotics (4) Hyperkalemia: Code(s): E87.5 - Hyperkalemia Status: Acute Assessment and Plan: resolved (5) Hypertension: Qualifiers: Hypertension type: unspecified Qualified Code(s): I10 - Essential (primary) hypertension Code(s): I10 - Essential (primary) hypertension Status: Chronic Assessment and Plan: Blood pressure doing pretty well (6) A-fib: Code(s): I48.91 - Unspecified atrial fibrillation Status: Chronic Assessment and Plan: He is on metoprolol for rate control. His blood pressure is doing pretty well right now. Heart rate is reasonable. (7) Edema: Code(s): R60.9 - Edema, unspecified Status: Acute Assessment and Plan: Swelling is much better. (8) Rash: Code(s): R21 - Rash and other nonspecific skin eruption Status: Acute Assessment and Plan: apparently chronic. symptomatic tx He still has significant eosinophilia. to see Dermatology as an outpatient (9) Erythropoietin deficiency anemia: Code(s): D63.1 - Anemia in chronic kidney disease Status: Acute Assessment and Plan: he is getting Epogen and Iron Subjective Date/time seen: 11/17/20 09:37 Interval history: patient is alert. He feels okay. on dialysis and tolerating it well. Blood pressure is doing well so far. Will get a little bit of fluid off. He was seen at 915a.m. Exam Narrative: General: WD/WN male in NAD Heart: irregular rate and rhythm. no rub Lungs: clear bilaterally Abdomen: BS+ nontender and soft Extremities: no cyanosis or clubbing; Trace edema Skin: chronic venous stasis dermatitis below his knees and also an additional rash about which he is going to see a general medical practitioner as an outpatient Objective Data Vital Signs Vital Signs: Vital Signs - 24 hr 11/16/20 12:00 11/16/20 16:00 11/16/20 17:32 Temperature 36.7 C 36.2 C L Pulse Rate 94 84 86 Respiratory Rate 16 18 Blood Pressure 126/62 118/64 Pulse Oximetry 99 100 11/16/20 20:00 11/17/20 00:00 11/17/20 04:00 Temperature 36.4 C 36.1 C L 36.1 C L Pulse Rate 79 61 62 Respiratory Rate 18 18 16 Blood Pressure 107/59 L 100/52 L 101/57 L Pulse Oximetry 99 95 97 11/17/20 08:00 Temperature 36.6 C Pulse Rate 85 Respiratory Rate 14 Blood Pressure 112/44 L Pulse Oximetry 99 Intake/Output Intake/Output: Intake & Output 11/14/20 11/15/20 11/16/20 11/17/20 23:59 23:59 23:59 23:59 Intake Total 2044 1800 1630 350 Output Total 100 100 150 Balance 1945 1700 1480 350 Meds/Results Medications: Active Medications Generic Name Dose Route Start Last Admin Trade Name Freq PRN Reason Stop Dose Admin Acetaminophen 650 mg 11/12/20 12:11 11/16/20 20:43 Acetaminophen 325 Mg Tablet PO 650 mg Q4H PRN Administration Pain 1- 3 Or Fever Hydrocodone Bitart/Acetaminophen 1 tab 11/02/20 08:42 11/16/20 22:04 Hydrocodone/Acetamin
--- NOTE | 2020-11-17 09:44 | PCPTNOTE ---
Patient out of room for dialysis, unable to be seen for PT. PT will continue to follow per plan of care.
[2020-11-17] MEDS: EPOETIN ALFA-EPBX 10,000 UNITS/ML VIAL 10000 UNITS IV PUSH (11:45)
--- NOTE | 2020-11-17 12:56 | PC.NURSE ---
Return from dialysis per bed @ 1255.
[2020-11-17] MEDS: IRON SUCROSE COMPLEX 200 MG in SODIUM CHLORIDE 0.9% IV 50 ML 120 MG IVPB (12:58)
[2020-11-17] MEDS: MAGNESIUM OXIDE 200 MG TABLET PO ×2 (13:00→20:55)
[2020-11-17] MEDS: ASCORBIC ACID 500 MG TABLET PO ×2 (13:00→17:56)
[2020-11-17] MEDS: FINASTERIDE 5 MG TABLET PO (13:00)
[2020-11-17] MEDS: DULoxetine HCL 30 MG CAPSULE.DR PO (13:00)
[2020-11-17] MEDS: LACTIC ACID 12% LOTION 225 BTL 1 APPLIC TOPICAL (13:01)
[2020-11-17] MEDS: PANTOPRAZOLE 40 MG TABLET PO (13:01)
[2020-11-17 13:04] LABS: Glucose Point of Care 109 mg/dl (65-105)
[2020-11-17] MEDS: HYDROcodone/acetaminophen (*CRX) 5-325 MG TABLET 1 TAB PO ×2 (13:07→20:58)
--- NOTE | 2020-11-17 14:15 | PM.PNCARD ---
Progress Note: A&P Assessment and Plan (1) CHF (congestive heart failure): Qualifiers: Heart failure chronicity: acute on chronic Heart failure type: unspecified Qualified Code(s): I50.9 - Heart failure, unspecified Code(s): I50.9 - Heart failure, unspecified Status: Chronic Assessment and Plan: 74-year-old male with CAD, CHF /biventricular failure with reduced LVEF at 30-35% from 10/29/2019 echocardiogram; history of [place] mechanical aortic valve replacement and CABG with unknown graft (in 1982 as per patient, op report not available); atrial fibrillation on chronic anticoagulation with warfarin; CKD, chronic anemia, multiple myeloma. patient admitted from skilled nursing with acute on chronic renal insufficiency, hyperkalemia. He has chronic biventricular failure, last EF 30 - 35% from 10/29/2019 echo, and currently has volume overload in the setting of CHF and renal insufficiency. - Sacubitril/valsartan discontinued due to hypotension - Patient has not had regular cardiology follow-up. Patient is willing to follow up with us for longitudinal cardiac care after hospital discharge. - Coumadin has been restarted for AVR, Afib. INR today is 3.7 - Hold tonight (2) History of mechanical aortic valve replacement: Code(s): Z95.2 - Presence of prosthetic heart valve Status: Acute Assessment and Plan: History of remote mechanical aortic valve replacement with normal functioning valve from 10/29/2019 echo with a mean gradient of 5 mmHg. anticoagulation with warfarin. Today INR is 3.7. Hold tonight. (3) Atrial fibrillation: Qualifiers: Atrial fibrillation type: unspecified Qualified Code(s): I48.91 - Unspecified atrial fibrillation Code(s): I48.91 - Unspecified atrial fibrillation Status: Chronic Assessment and Plan: Fairly rate controlled with low-dose metoprolol tartrate. Rate control plus anticoagulation. (4) Supratherapeutic INR: Code(s): R79.1 - Abnormal coagulation profile Status: Acute Assessment and Plan: INR 3.7 today. Hold warfarin tonight (5) Neuropathy: Code(s): G62.9 - Polyneuropathy, unspecified Status: Acute Assessment and Plan: management of other medical problems as per primary team including local wound care. Subjective Date/time seen: 11/17/20 14:15 Interval history: 74-year-old man with: Valvular heart disease, coronary artery disease remote history of CABG and aortic valve replacement with a mechanical prosthesis. Patient enters the hospital with volume overload has a complex situation with left ventricular systolic dysfunction as well as development of end-stage renal disease. Dialysis catheter was placed Friday and the patient now is on renal replacement therapy. He appears to be relatively comfortable this afternoon. Discussed resuming Entresto now that he has on dialysis. The patient and his seemed to be surprised and a bit taken aback by my conversation that he has a significantly weakened heart. Despite his extensive history it seems that they did not have a good understanding of this situation Date of service 11/13/2020: Patient is comfortable he seems rather somnolent this afternoon but offers no cardiovascular complaints. Shared with the patient that his INR is coming up in is now 1.8. Hopefully by tomorrow we can stop his heparin drip Date of service 11/16/2020: Patient states he is feeling well today. He has a productive cough but otherwise no complaints. He is asking about his dialysis schedule - told him that for now he is on a MWF schedule. LE edema has significantly improved. Date of service 11/17/2020: No complaints today. His swelling remains improved. Waiting on SNF placement. Review of Systems Review of Systems: All systems reviewed & are unremarkable except as noted in HPI and below Constitutional: Constitutional: Reports difficul
[2020-11-17 17:35] LABS: Glucose Point of Care 148 mg/dl (65-105)
[2020-11-17] MEDS: TAMSULOSIN HCL 0.4 MG CAPSULE PO (17:56)
[2020-11-17] MEDS: PREGABALIN (*CRX) 75 MG CAPSULE PO (17:56)
[2020-11-17] MEDS: METOPROLOL SUCCINATE EXT REL 12.5 MG TABCR PO (18:06)
[2020-11-17] MEDS: ATORVASTATIN 40 MG TABLET PO (20:55)
[2020-11-17] MEDS: SENNOSIDES 8.6 MG TABLET 17.2 MG PO (20:55)
[2020-11-17] MEDS: traZODone HCL 25 MG TABLET PO (20:55)
[2020-11-17] MEDS: MELATONIN 3 MG TABLET 6 MG PO (20:55)
[2020-11-17] MEDS: diphenhydrAMINE HCl CAP 25 MG CAPSULE PO (20:58)
[2020-11-17] MEDS: guaiFENesin/DEXTROMETHORPHAN 10 ML UDC 5 ML PO (21:02)
[2020-11-17 21:53] LABS: Glucose Point of Care 106 mg/dl (65-105)
[2020-11-18] VITALS (7 sets, daily range): BP systolic 99–104; BP diastolic 42–59; PULSE 68–88; RESP 16–18; TEMP 36.1–37; O2SAT 95–99
[2020-11-18] MEDS: guaiFENesin/DEXTROMETHORPHAN 10 ML UDC 5 ML PO ×2 (03:29→08:56)
[2020-11-18 06:44] LABS: INR 3.4; Prothrombin Time 33.1 Seconds (11.1-14.7)
[2020-11-18 07:32] LABS: Glucose Point of Care 119 mg/dl (65-105)
[2020-11-18] MEDS: FINASTERIDE 5 MG TABLET PO (08:55)
[2020-11-18] MEDS: ASCORBIC ACID 500 MG TABLET PO ×2 (08:55→18:12)
[2020-11-18] MEDS: DULoxetine HCL 30 MG CAPSULE.DR PO (08:55)
[2020-11-18] MEDS: IRON SUCROSE COMPLEX 200 MG in SODIUM CHLORIDE 0.9% IV 50 ML 120 MG IVPB (08:55)
[2020-11-18] MEDS: PANTOPRAZOLE 40 MG TABLET PO (08:55)
[2020-11-18] MEDS: PREGABALIN (*CRX) 75 MG CAPSULE PO ×2 (08:55→18:12)
[2020-11-18] MEDS: MAGNESIUM OXIDE 200 MG TABLET PO ×2 (08:55→21:12)
[2020-11-18] MEDS: HYDROcodone/acetaminophen (*CRX) 5-325 MG TABLET 1 TAB PO ×2 (10:21→14:50)
[2020-11-18] MEDS: diphenhydrAMINE HCl CAP 25 MG CAPSULE PO (10:23)
--- NOTE | 2020-11-18 11:11 | P.PNNP_ITS ---
Progress Note: A&P Assessment and Plan (1) ANDRADE (acute kidney injury): Code(s): N17.9 - Acute kidney failure, unspecified Status: Acute Assessment and Plan: * ANDRADE * urine electrolytes non pre renal * urine eosinophils negative * ultrasound negative * UA shows blood and leukocytes. Urine culture showed Pseudomonas. * He is on imipenem. * dialysis catheter is in. * hemodialysis ongoing * Will get his next treatment on Friday * Awaiting alf and outpatient dialysis arrangements (2) Chronic kidney disease, stage IV (severe): Code(s): N18.4 - Chronic kidney disease, stage 4 (severe) Status: Chronic Assessment and Plan: * baseline creatinine ~ 1.6 - 2.1mg/dl since January 2020 * Will see if he recovers function enough to get off dialysis. (3) Urinary tract infection: Code(s): N39.0 - Urinary tract infection, site not specified Status: Acute Assessment and Plan: * off antibiotics (4) Hyperkalemia: Code(s): E87.5 - Hyperkalemia Status: Acute Assessment and Plan: * resolved (5) Hypertension: Qualifiers: Hypertension type: unspecified Qualified Code(s): I10 - Essential (primary) hypertension Code(s): I10 - Essential (primary) hypertension Status: Chronic Assessment and Plan: * Blood pressure doing pretty well (6) A-fib: Code(s): I48.91 - Unspecified atrial fibrillation Status: Chronic Assessment and Plan: * He is on metoprolol for rate control. * His blood pressure is doing pretty well right now. Heart rate is reasonable. (7) Edema: Code(s): R60.9 - Edema, unspecified Status: Acute Assessment and Plan: Swelling is much better. (8) Rash: Code(s): R21 - Rash and other nonspecific skin eruption Status: Acute Assessment and Plan: apparently chronic. symptomatic tx He still has significant eosinophilia. 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 He feels okay. Sitting in a chair beside the bed. Review of Systems Cardiovascular: Cardiovascular: Reports no additional cardiovascular complaints Respiratory: Respiratory: Reports no additional respiratory complaints Gastrointestinal: Gastrointestinal: Reports no additional gastrointestinal complaints Genitourinary: Genitourinary: Reports no additional male genitourinary complaints Exam Narrative: WDWN in NAD skin no change in his rash head ncat lungs clear cor reg no rub abd BS+ nontender and soft ext trace edema. Objective Data Vital Signs Vital Signs: Vital Signs - 24 hr 11/17/20 11:30 11/17/20 12:00 11/17/20 12:30 Temperature Pulse Rate 87 90 95 Respiratory Rate Blood Pressure 120/61 137/43 L 114/54 L Pulse Oximetry 11/17/20 12:40 11/17/20 13:00 11/17/20 16:28 Temperature 36.7 C 36.8 C 36.2 C L Pulse Rate 887 H 78 93 Respiratory Rate 20 18 18 Blood Pressure 140
--- NOTE | 2020-11-18 11:11 | PM.PNNEP ---
Progress Note: A&P Assessment and Plan (1) ANDRADE (acute kidney injury): Code(s): N17.9 - Acute kidney failure, unspecified Status: Acute Assessment and Plan: ANDRADE urine electrolytes non pre renal urine eosinophils negative ultrasound negative UA shows blood and leukocytes. Urine culture showed Pseudomonas. He is on imipenem. dialysis catheter is in. hemodialysis ongoing Will get his next treatment on Friday Awaiting mcc and outpatient dialysis arrangements (2) Chronic kidney disease, stage IV (severe): Code(s): N18.4 - Chronic kidney disease, stage 4 (severe) Status: Chronic Assessment and Plan: baseline creatinine ~ 1.6 - 2.1mg/dl since January 2020 Will see if he recovers function enough to get off dialysis. (3) Urinary tract infection: Code(s): N39.0 - Urinary tract infection, site not specified Status: Acute Assessment and Plan: off antibiotics (4) Hyperkalemia: Code(s): E87.5 - Hyperkalemia Status: Acute Assessment and Plan: resolved (5) Hypertension: Qualifiers: Hypertension type: unspecified Qualified Code(s): I10 - Essential (primary) hypertension Code(s): I10 - Essential (primary) hypertension Status: Chronic Assessment and Plan: Blood pressure doing pretty well (6) A-fib: Code(s): I48.91 - Unspecified atrial fibrillation Status: Chronic Assessment and Plan: He is on metoprolol for rate control. His blood pressure is doing pretty well right now. Heart rate is reasonable. (7) Edema: Code(s): R60.9 - Edema, unspecified Status: Acute Assessment and Plan: Swelling is much better. (8) Rash: Code(s): R21 - Rash and other nonspecific skin eruption Status: Acute Assessment and Plan: apparently chronic. symptomatic tx He still has significant eosinophilia. 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 He feels okay. Sitting in a chair beside the bed. Review of Systems Cardiovascular: Cardiovascular: Reports no additional cardiovascular complaints Respiratory: Respiratory: Reports no additional respiratory complaints Gastrointestinal: Gastrointestinal: Reports no additional gastrointestinal complaints Genitourinary: Genitourinary: Reports no additional male genitourinary complaints Exam Narrative: WDWN in NAD skin no change in his rash head ncat lungs clear cor reg no rub abd BS+ nontender and soft ext trace edema. Objective Data Vital Signs Vital Signs: Vital Signs - 24 hr 11/17/20 11:30 11/17/20 12:00 11/17/20 12:30 Temperature Pulse Rate 87 90 95 Respiratory Rate Blood Pressure 120/61 137/43 L 114/54 L Pulse Oximetry 11/17/20 12:40 11/17/20 13:00 11/17/20 16:28 Temperature 36.7 C 36.8 C 36.2 C L Pulse Rate 887 H 78 93 Respiratory Rate 20 18 18 Blood Pressure 140/59 L 106/53 L 94/52 L Pulse Oximetry 98 96 11/17/20 17:55 11/17/20 18:06 11/17/20 20:00 Temperature 36.2 C L Pulse Rate 84 74 Respiratory Rate 16 Blood Pressure 98/50 L 97/56 L Pulse Oximetry 100 11/17/20 23:50 11/18/20 03:55 11/18/20 08:00 Temperature 36.2 C L 36.1 C L 36.3 C L Pulse Rate 68 68 85 Respiratory Rate 16 18 18 Blood Pressure 99/37 L 104/46 L 100/42 L Pulse Oximetry 96 97 95 Intake/Output Intake/Output: Intake & Output 11/15/20 11/16/20 11/17/20 11/18/20 23:59 23:59 23:59 23:59 Intake Total 1800 1630 900 590 Output Total 073 844 3615 Balance 1700 1480 -1100 590 Meds/Results Medications: Active Medications Generic Name Dose Route Start Last Admin Trade Name
[2020-11-18 12:20] LABS: Glucose Point of Care 93 mg/dl (65-105)
--- NOTE | 2020-11-18 13:57 | PM.IMPN ---
Progress Note: A&P Assessment and Plan (1) Discharge planning issues: Code(s): Z02.9 - Encounter for administrative examinations, unspecified Status: Acute Assessment and Plan: Waiting on Core Hep B Antibody before dialysis chair can be arranged. Otherwise stable for discharge pending SNF placement and dialysis chair. - Informed that patients Core Hep B AB was NOT SENT on 11/11. It is now being redrawn by Lab and sent out. - Otherwise BP is more stable, symptoms stable. - Ready for discharge once SNF accepts and we have a dialysis bed. (2) Hypotension: Code(s): I95.9 - Hypotension, unspecified Status: Acute Assessment and Plan: Patient has been having low normal blood pressures. This morning he was slightly low at 89/48. Patient was reporting lightheadedness and dizziness while sitting up in the chair. Manual blood pressure was taken which showed he was hypotensive 82/48. ordered for 250 cc fluid bolus to be administered and manually recheck blood pressure. blood pressure was not called to me it was 94/54. Believe it is due to over diuresis since he did receive his medications this morning even with a low blood pressure, Metolazone, Bumex, Toprol and Entresto. 11/14/20- Talked to Nephrology and we held his diuretics, Metolazone and Bumex. 11/15/20- BP was better 131/61 before Toprol and Entresto was given. Blood pressure when he arrived at dialysis was 73/38. He was given IV Albumin by Dialysis nurse, who has been talking with the Credit Checker with ordered. I talked to Dr. Westbrook who recommended for the dialysis nurse not to take much fluid off. I talked to Dr. Anne Cardiology about the patients Entresto causing hypotension. Dr. Anne recommended discontinuing his Entresto for now and monitoring his blood pressure. 11/18/20- BP 100/42 this morning. Patient is not having any lightheadedness symptoms. Continue to hold diuretics and Entresto per cardiology. Will continue Toprol 12.5 mg and continue monitoring BP He cannot have Maurilio hose on due to his leg wounds. Continue monitoring. (3) ANDRADE (acute kidney injury): Code(s): N17.9 - Acute kidney failure, unspecified Status: Acute Assessment and Plan: s/p right IJ dialysis catheter placement by Dr Hart 11/10/20. Has dialysis scheduled M/W/F for now. Appreciate nephrology recommendations. Renal US unremarkable. Renal biopsy 08/07/20 which showed acute tubular injury. 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 Heparin gtt was initiated 11/08 in order to keep him anticoagulated while we held warfarin for his surgery. Received FFP early AM 11/10 prior to his procedure. Warfarin resumed 11/11. Will discontinue IV Heparin 11/14/20. INR 3.4 today. --Cardiology HELD Coumadin last night and will do it again tonight. 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 He used to follow with Dr Hall who is retiring, he is to now follow with Dr Jenna Bond at [facility] but has not had his first appointment yet. I spoke with their office and confirmed Dr Bond will be the one to follow his INR and warfarin dosing following discharge. ([phone]; warfarin clinic at [phone]) (5) Anemia in CKD (chronic kidney disease): Qualifiers: Chronic kidney disease stage: unspecified stage Qualified Code(s): N18.9 - Chronic kidney disease, unspecified; D63.1 - Anemia in chronic kidney disease Code(s): N18.9 - Chronic kidney disease, unspecified; D63.1 - Anemia in chronic kidney disease Status: Acute Assessm
[2020-11-18 14:09] LABS: Hepatitis B Core Ab Total Nonreactive (Nonreactive)
[2020-11-18 17:30] LABS: Glucose Point of Care 149 mg/dl (65-105)
[2020-11-18] MEDS: LACTIC ACID 12% LOTION 225 BTL 1 APPLIC TOPICAL (18:11)
[2020-11-18] MEDS: TAMSULOSIN HCL 0.4 MG CAPSULE PO (18:12)
[2020-11-18] MEDS: METOPROLOL SUCCINATE EXT REL 12.5 MG TABCR PO (18:13)
[2020-11-18] MEDS: ATORVASTATIN 40 MG TABLET PO (21:12)
[2020-11-18] MEDS: SENNOSIDES 8.6 MG TABLET 17.2 MG PO (21:12)
[2020-11-18] MEDS: MELATONIN 3 MG TABLET 6 MG PO (21:12)
[2020-11-18] MEDS: traZODone HCL 25 MG TABLET PO (21:12)
[2020-11-18 21:36] LABS: Glucose Point of Care 254 mg/dl (65-105)
[2020-11-19 04:00] VITALS: BP 99/40; PULSE 76; RESP 18; TEMP 37.4; O2SAT 96
[2020-11-19 08:00] VITALS: BP 110/46; PULSE 65; RESP 16; TEMP 36.6; O2SAT 98
[2020-11-19 08:05] LABS: Glucose Point of Care 121 mg/dl (65-105)
[2020-11-19 08:12] LABS: INR 3.4; Prothrombin Time 33.3 Seconds (11.1-14.7)
[2020-11-19 08:16] LABS: Albumin Level 3.9 g/dL (3.5-5.1); Anion Gap 12 mmol/L (8-16); Blood Urea Nitrogen 41 mg/dL (9-20); Carbon Dioxide 26 mmol/L (22-30); Chloride 94 mmol/L (98-107); Estimated CRCL calculation 13 ml/min; Estimated Glomerular Filt Rate 11; Glucose 109 mg/dL (65-110); Phosphorus 7.1 mg/dL (2.5-4.5); Potassium 4.1 mmol/L (3.4-5.0); Sodium 132 mmol/L (137-145)
[2020-11-19] MEDS: DULoxetine HCL 30 MG CAPSULE.DR PO (08:37)
[2020-11-19] MEDS: ASCORBIC ACID 500 MG TABLET PO ×2 (08:37→17:29)
[2020-11-19] MEDS: FINASTERIDE 5 MG TABLET PO (08:37)
[2020-11-19] MEDS: MAGNESIUM OXIDE 200 MG TABLET PO ×2 (08:37→20:53)
[2020-11-19] MEDS: PREGABALIN (*CRX) 75 MG CAPSULE PO ×2 (08:37→17:29)
[2020-11-19] MEDS: LACTIC ACID 12% LOTION 225 BTL 1 APPLIC TOPICAL (08:37)
[2020-11-19] MEDS: PANTOPRAZOLE 40 MG TABLET PO (08:37)
[2020-11-19 12:00] VITALS: BP 93/49; PULSE 81; RESP 18; TEMP 36.7; O2SAT 97
[2020-11-19] MEDS: HYDROcodone/acetaminophen (*CRX) 5-325 MG TABLET 1 TAB PO (12:15)
[2020-11-19 12:51] LABS: Glucose Point of Care 262 mg/dl (65-105)
[2020-11-19] MEDS: INSULIN ASPART (*BKC) 100 UNITS/ML SUB-Q (12:53)
[2020-11-19] MEDS: diphenhydrAMINE HCl CAP 25 MG CAPSULE PO (12:53)
--- NOTE | 2020-11-19 13:51 | PM.IMPN ---
Progress Note: A&P Assessment and Plan (1) Discharge planning issues: Code(s): Z02.9 - Encounter for administrative examinations, unspecified Status: Acute Assessment and Plan: Waiting on Core Hep B Antibody before dialysis chair can be arranged. Otherwise stable for discharge pending SNF placement and dialysis chair. - Core Hep B AB came back nonreactive. Now we are just waiting for dialysis to give him a chair time and hopefully can be discharged to SNF tomorrow. - Otherwise BP is more stable, symptoms stable. - Ready for discharge once SNF accepts and we have a dialysis bed. (2) Hypotension: Code(s): I95.9 - Hypotension, unspecified Status: Acute Assessment and Plan: Patient has been having low normal blood pressures. This morning he was slightly low at 89/48. Patient was reporting lightheadedness and dizziness while sitting up in the chair. Manual blood pressure was taken which showed he was hypotensive 82/48. ordered for 250 cc fluid bolus to be administered and manually recheck blood pressure. blood pressure was not called to me it was 94/54. Believe it is due to over diuresis since he did receive his medications this morning even with a low blood pressure, Metolazone, Bumex, Toprol and Entresto. 11/14/20- Talked to Nephrology and we held his diuretics, Metolazone and Bumex. 11/15/20- BP was better 131/61 before Toprol and Entresto was given. Blood pressure when he arrived at dialysis was 73/38. He was given IV Albumin by Dialysis nurse, who has been talking with the [employer] Labourer with ordered. I talked to Dr. Westbrook who recommended for the dialysis nurse not to take much fluid off. I talked to Dr. Anne Cardiology about the patients Entresto causing hypotension. Dr. Anne recommended discontinuing his Entresto for now and monitoring his blood pressure. 12/02- BP 110/46 this morning. Patient is not having any lightheadedness symptoms. Continue to hold diuretics and Entresto per cardiology. Will continue Toprol 12.5 mg and continue monitoring BP He cannot have Maurilio hose on due to his leg wounds. Continue monitoring. (3) ANDRADE (acute kidney injury): Code(s): N17.9 - Acute kidney failure, unspecified Status: Acute Assessment and Plan: s/p right IJ dialysis catheter placement by Dr Hart 11/10/20. Has dialysis scheduled M/W/F for now. Appreciate nephrology recommendations. Renal US unremarkable. Renal biopsy 08/07/20 which showed acute tubular injury. 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 Heparin gtt was initiated 11/08 in order to keep him anticoagulated while we held warfarin for his surgery. Received FFP early AM 11/10 prior to his procedure. Warfarin resumed 11/11. Will discontinue IV Heparin 11/14/20. INR 3.4 today. 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 He used to follow with Dr Hall who is retiring, he is to now follow with Dr Jenna Bond at [facility] but has not had his first appointment yet. I spoke with their office and confirmed Dr Bond will be the one to follow his INR and warfarin dosing following discharge. ([phone]; warfarin clinic at [phone]) (5) Anemia in CKD (chronic kidney disease): Qualifiers: Chronic kidney disease stage: unspecified stage Qualified Code(s): N18.9 - Chronic kidney disease, unspecified; D63.1 - Anemia in chronic kidney disease Code(s): N18.9 - Chronic kidney disease, unspecified; D63.1 - Anemia in chronic kidney disease Status: Acu
--- NOTE | 2020-11-19 14:51 | P.PNNP_ITS ---
Progress Note: A&P Assessment and Plan (1) ANDRADE (acute kidney injury): Code(s): N17.9 - Acute kidney failure, unspecified Status: Acute Assessment and Plan: * ANDRADE * urine electrolytes non pre renal * urine eosinophils negative * ultrasound negative * UA shows blood and leukocytes. Urine culture showed Pseudomonas. * He is on imipenem. * dialysis catheter is in. * hemodialysis ongoing * He will get dialysis tomorrow * Awaiting intermediate and outpatient dialysis arrangements (2) Chronic kidney disease, stage IV (severe): Code(s): N18.4 - Chronic kidney disease, stage 4 (severe) Status: Chronic Assessment and Plan: * baseline creatinine ~ 1.6 - 2.1mg/dl since January 2020 * Will see if he recovers function enough to get off dialysis. (3) Urinary tract infection: Code(s): N39.0 - Urinary tract infection, site not specified Status: Acute Assessment and Plan: * off antibiotics (4) Hyperkalemia: Code(s): E87.5 - Hyperkalemia Status: Acute Assessment and Plan: * resolved (5) Hypertension: Qualifiers: Hypertension type: unspecified Qualified Code(s): I10 - Essential (primary) hypertension Code(s): I10 - Essential (primary) hypertension Status: Chronic Assessment and Plan: * Blood pressure doing pretty well (6) A-fib: Code(s): I48.91 - Unspecified atrial fibrillation Status: Chronic Assessment and Plan: * He is on metoprolol for rate control. * His blood pressure is doing pretty well right now. Heart rate is reasonable. (7) Edema: Code(s): R60.9 - Edema, unspecified Status: Acute Assessment and Plan: Swelling is much better. (8) Rash: Code(s): R21 - Rash and other nonspecific skin eruption Status: Acute Assessment and Plan: apparently chronic. symptomatic tx He still has significant eosinophilia. 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 He feels okay. Sitting in a chair beside the bed. Exam Narrative: WDWN in NAD skin no change in his rash head ncat lungs clear to auscultation cor reg no rub or gallop abd BS+ nontender and soft ext trace edema. Objective Data Vital Signs Vital Signs: Vital Signs - 24 hr 11/18/20 18:00 11/18/20 18:13 11/18/20 21:09 Temperature 36.3 C L 36.1 C L Pulse Rate 70 88 84 Respiratory Rate 18 18 Blood Pressure 100/48 L 99/59 L Pulse Oximetry 98 99 11/18/20 23:33 11/19/20 04:00 11/19/20 08:00 Temperature 37.0 C 37.4 C 36.6 C Pulse Rate 83 76 65 Respiratory Rate 18 18 16 Blood Pressure 99/43 L 99/40 L 110/46 L Pulse Oximetry 99 96 98 Intake/Output Intake/Output: Intake & Output 11/16/20 11/17/20 11/18/20 11/19/20 23:59 23:59 23:59 23:59 Intake Total 1326 600 9637 700 Output Total 150 2000 Balance 1480 -1100 2410 700 Meds/Results
--- NOTE | 2020-11-19 14:51 | PM.PNNEP ---
Progress Note: A&P Assessment and Plan (1) ANDRADE (acute kidney injury): Code(s): N17.9 - Acute kidney failure, unspecified Status: Acute Assessment and Plan: ANDRADE urine electrolytes non pre renal urine eosinophils negative ultrasound negative UA shows blood and leukocytes. Urine culture showed Pseudomonas. He is on imipenem. dialysis catheter is in. hemodialysis ongoing He will get dialysis tomorrow Awaiting retirement and outpatient dialysis arrangements (2) Chronic kidney disease, stage IV (severe): Code(s): N18.4 - Chronic kidney disease, stage 4 (severe) Status: Chronic Assessment and Plan: baseline creatinine ~ 1.6 - 2.1mg/dl since January 2020 Will see if he recovers function enough to get off dialysis. (3) Urinary tract infection: Code(s): N39.0 - Urinary tract infection, site not specified Status: Acute Assessment and Plan: off antibiotics (4) Hyperkalemia: Code(s): E87.5 - Hyperkalemia Status: Acute Assessment and Plan: resolved (5) Hypertension: Qualifiers: Hypertension type: unspecified Qualified Code(s): I10 - Essential (primary) hypertension Code(s): I10 - Essential (primary) hypertension Status: Chronic Assessment and Plan: Blood pressure doing pretty well (6) A-fib: Code(s): I48.91 - Unspecified atrial fibrillation Status: Chronic Assessment and Plan: He is on metoprolol for rate control. His blood pressure is doing pretty well right now. Heart rate is reasonable. (7) Edema: Code(s): R60.9 - Edema, unspecified Status: Acute Assessment and Plan: Swelling is much better. (8) Rash: Code(s): R21 - Rash and other nonspecific skin eruption Status: Acute Assessment and Plan: apparently chronic. symptomatic tx He still has significant eosinophilia. 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 He feels okay. Sitting in a chair beside the bed. Exam Narrative: WDWN in NAD skin no change in his rash head ncat lungs clear to auscultation cor reg no rub or gallop abd BS+ nontender and soft ext trace edema. Objective Data Vital Signs Vital Signs: Vital Signs - 24 hr 11/18/20 18:00 11/18/20 18:13 11/18/20 21:09 Temperature 36.3 C L 36.1 C L Pulse Rate 70 88 84 Respiratory Rate 18 18 Blood Pressure 100/48 L 99/59 L Pulse Oximetry 98 99 11/18/20 23:33 11/19/20 04:00 11/19/20 08:00 Temperature 37.0 C 37.4 C 36.6 C Pulse Rate 83 76 65 Respiratory Rate 18 18 16 Blood Pressure 99/43 L 99/40 L 110/46 L Pulse Oximetry 99 96 98 Intake/Output Intake/Output: Intake & Output 11/16/20 11/17/20 11/18/20 11/19/20 23:59 23:59 23:59 23:59 Intake Total 3781 423 0016 700 Output Total 150 2000 Balance 1480 -1100 2410 700 Meds/Results Medications: Active Medications Generic Name Dose Route Start Last Admin Trade Name Jasonq PRN Reason Stop Dose Admin Acetaminophen 650 mg 11/12/20 12:11 11/16/20 20:43 Acetaminophen 325 Mg Tablet PO 650 mg Q4H PRN Administration Pain 1- 3 Or Fever Hydrocodone Bitart/Acetaminophen 1 tab 11/02/20 08:42 11/19/20 12:15 Hydrocodone/Acetaminophen (*Crx) 5-325 Mg Tablet PO 1 tab Q4H PRN Administration Pain Rated 4-6 Ascorbic Acid 500 mg 10/26/20 17:00 11/19/20 08:37 Ascorbic Acid 500 Mg Tablet PO 500 mg BID MARY Administration Atorvastatin Calcium 40 mg 10/26/20 21:00 11/18/20 21:12 Atorvastatin 40 Mg Tablet PO 40 mg HS MARY Administration Bisacodyl 10 mg 10/26/20 14:11 Bisacodyl 10 Mg Suppository RECTAL
[2020-11-19 16:00] VITALS: BP 100/50; PULSE 70; RESP 18; TEMP 36.7; O2SAT 97
[2020-11-19 16:54] LABS: Glucose Point of Care 84 mg/dl (65-105)
[2020-11-19] MEDS: TAMSULOSIN HCL 0.4 MG CAPSULE PO (17:29)
[2020-11-19 17:30] VITALS: PULSE 80
[2020-11-19] MEDS: METOPROLOL SUCCINATE EXT REL 12.5 MG TABCR PO (17:30)
[2020-11-19] MEDS: guaiFENesin/DEXTROMETHORPHAN 10 ML UDC 5 ML PO (17:30)
[2020-11-19 20:00] VITALS: BP 99/50; PULSE 85; RESP 18; TEMP 36.1; O2SAT 98
[2020-11-19] MEDS: traZODone HCL 25 MG TABLET PO (20:53)
[2020-11-19] MEDS: MELATONIN 3 MG TABLET 6 MG PO (20:53)
[2020-11-19] MEDS: ATORVASTATIN 40 MG TABLET PO (20:54)
[2020-11-19 21:50] LABS: Glucose Point of Care 185 mg/dl (65-105)
[2020-11-20] VITALS: BP 100/59; PULSE 65; RESP 18; TEMP 36.1; O2SAT 98
[2020-11-20 04:00] VITALS: BP 99/48; PULSE 65; RESP 18; TEMP 36.3; O2SAT 96
[2020-11-20 06:59] LABS: INR 2.8; Prothrombin Time 28.6 Seconds (11.1-14.7)
[2020-11-20 07:08] LABS: Albumin Level 3.7 g/dL (3.5-5.1); Anion Gap 17 mmol/L (8-16); Blood Urea Nitrogen 55 mg/dL (9-20); Calcium 8.9 mg/dL (8.4-10.2); Carbon Dioxide 23 mmol/L (22-30); Chloride 92 mmol/L (98-107); Estimated CRCL calculation 10 ml/min; Estimated Glomerular Filt Rate 9; Glucose 97 mg/dL (65-110); Phosphorus 8.7 mg/dL (2.5-4.5); Potassium 4.7 mmol/L (3.4-5.0); Sodium 132 mmol/L (137-145)
[2020-11-20 08:00] VITALS: BP 105/62; PULSE 71; RESP 18; TEMP 36.1; O2SAT 94
[2020-11-20 08:24] LABS: Glucose Point of Care 101 mg/dl (65-105)
[2020-11-20] MEDS: DULoxetine HCL 30 MG CAPSULE.DR PO (08:55)
[2020-11-20] MEDS: FINASTERIDE 5 MG TABLET PO (08:55)
[2020-11-20] MEDS: ASCORBIC ACID 500 MG TABLET PO (08:55)
[2020-11-20] MEDS: LACTIC ACID 12% LOTION 225 BTL 1 APPLIC TOPICAL (08:55)
[2020-11-20] MEDS: PANTOPRAZOLE 40 MG TABLET PO (08:56)
[2020-11-20] MEDS: MAGNESIUM OXIDE 200 MG TABLET PO (08:56)
[2020-11-20] MEDS: PREGABALIN (*CRX) 75 MG CAPSULE PO (08:57)
[2020-11-20 12:00] VITALS: BP 102/64; PULSE 70; RESP 16; TEMP 36.5; O2SAT 100
[2020-11-20 12:01] LABS: Glucose Point of Care 136 mg/dl (65-105)
--- NOTE | 2020-11-20 12:38 | PM.DS ---
DS: Admitting Diagnosis Admitting Diagnosis Abnormal labs DS: Discharge Diagnosis Discharge Diagnosis (1) Discharge planning issues: Code(s): Z02.9 - Encounter for administrative examinations, unspecified Status: Acute Assessment and Plan: the patient is a 74-year-old man with a history of CKD with renal biopsy in July 2020 showing ATN and arteriosclerosis, anemia of chronic disease, atrial fibrillation, mechanical aortic valve replacement on warfarin, systolic congestive heart failure with an EF of 30-35%, Who [facility] for abnormal labs with elevated BUN and creatinine levels. Initial vitals showed stable blood pressure, heart rate, respiratory rate, oxygenation on room air, afebrile. Initial labs showed anemia with a hemoglobin of 8.1, hematocrit 25%, thrombopenia at 100,000, potassium of 5.5, elevated creatinine at 4.1, BUN 61, normal LFTs. Urinalysis suspicious for urinary tract infection. Patient was admitted into the hospital for consulted nephrology due to his abnormal renal function, started on some IV antibiotics due to history of Pseudomonas urinary tract infections until culture results return. Urine culture came back growing Pseudomonas aeruginosa and he was treated with antibiotics for total of 7 days. Blood cultures negative. During the patient's hospitalization he was seen by the liquor rectifier to continue working on his renal function but then ultimately decided for him to be placed on dialysis. He had a temporary dialysis catheter placed on 11/10/2020 after having ANDRADE with urine electrolytes showing [id number], urine eosinophils being negative, Renal US negative, 24hour urine came back and shows that his GFR was only 13 even when his creatinine was 2.5. The day before dialysis catheter was placed is Creatinine was 7 and he was without uremic symptoms, but dialysis was needing to be started due to fluid status. he was initially having some issues during dialysis with hypotension. We discontinued his Entresto, diuretics since he makes little urine, with improvement of his blood pressure. Patient has not been having any issues last few days. Patient has a mechanical heart valve and history of atrial fibrillation is on warfarin. He has been having some elevated INRs last few days we have had his warfarin on hold. INR today is 2.8 and back within normal range. Will restart his warfarin at 2 mg daily and have his INR checked in 3 days, 11/23/20. Follow up with Dance Director as an outpatient. (2) Hypotension: Code(s): I95.9 - Hypotension, unspecified Status: Acute Assessment and Plan: (3) ANDRADE (acute kidney injury): Code(s): N17.9 - Acute kidney failure, unspecified Status: Acute Assessment and Plan: s/p right IJ dialysis catheter placement by Dr Hart 11/10/20. Has dialysis scheduled M/W/F for now. (4) Chronic anticoagulation: Code(s): Z79.01 - [employer] (current) use of anticoagulants Status: Acute Assessment and Plan: Patient has a mechanical aortic valve maintained on long-term anticoagulation with Warfarin. Heparin gtt was initiated 11/08 in order to keep him anticoagulated while we held warfarin for his surgery. Received FFP early AM 11/10 prior to his procedure. Warfarin resumed 11/11. Will discontinue IV Heparin 11/14/20. INR 2.8 today. 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 He used to follow with Dr Hall who is retiring, he is to now follow with Dr Jenna Bond at [facility] but has not had his first appointment yet. I spoke with their office and confirmed Dr Bond will be the one to follow his INR and warfarin dosing following discharge. ([phone]; warfarin clinic at [phone]
[2020-11-20 12:45] LABS: Glucose Point of Care 111 mg/dl (65-105)
--- NOTE | 2020-11-20 13:50 | PC.NURSE ---
Report called to Michelle at [facility]
--- NOTE | 2020-11-20 15:33 | PC.NURSE ---
[facility] notified patient has left hospital and will need a walker at front door there to get into facility.
== END 2020-11-20 15:25 | DRG 673 ==
LOC: ANHED 09:37 → ANH3MEDSUR 10-27 08:11
PROVIDERS: Internal Medicine; Internal Medicine Critical Care Medicine; Internal Medicine Nephrology; Nurse Practitioner; Physician Assistant; Surgery; Admitting Provider Internal Medicine; Emergency Provider Emergency Medicine; PCP Internal Medicine; Visit Provider Hospitalist
PROC: 0JH63XZ Insertion of Tunneled Vascular Access Device into Chest Subcutaneous Tissue and Fascia, Percutaneous Approach (ICD-10-PCS; CPT 36908; principal; 2020-11-10 09:00)
DX: N17.9 Acute kidney failure, unspecified (principal); I50.43 Acute on chronic combined systolic (congestive) and diastolic (congestive) heart failure; N39.0 Urinary tract infection, site not specified; I13.2 Hypertensive heart and chronic kidney disease with heart failure and with stage 5 chronic kidney disease, or end stage renal disease; C90.00 Multiple myeloma not having achieved remission; N18.4 Chronic kidney disease, stage 4 (severe); E87.5 Hyperkalemia; N40.0 Benign prostatic hyperplasia without lower urinary tract symptoms; M10.9 Gout, unspecified; I48.91 Unspecified atrial fibrillation; E11.22 Type 2 diabetes mellitus with diabetic chronic kidney disease; E78.5 Hyperlipidemia, unspecified; B96.5 Pseudomonas (aeruginosa) (mallei) (pseudomallei) as the cause of diseases classified elsewhere; D63.1 Anemia in chronic kidney disease; Z95.2 Presence of prosthetic heart valve; E86.0 Dehydration; G62.9 Polyneuropathy, unspecified; I25.10 Atherosclerotic heart disease of native coronary artery without angina pectoris; I95.9 Hypotension, unspecified; Z79.01 Long term (current) use of anticoagulants
CPT/HCPCS: 36415; 36430; 71045; 73030; 76775; 76937; 77001; 80048; 80053; 80069; 81001; 81050; 82274; 82436; 82533; 82570; 82607; 82728; 82746; 82948; 83540; 83550; 83615; 83735; 84100; 84300; 84439; 84443; 84466; 84480; 85014; 85018; 85025; 85027; 85055; 85610; 85730; 85999; 86704; 86706; 86850; 86860; 86870; 86880; 86900; 86901; 86902; 86922; 87040; 87077; 87086; 87088; 87186; 87340; 93005; 93970; 97110; 97116; 97161; 97530; 99285; A9270; C1750; G0257; J0690; J0696; J0743; J1644; J1756; J1815; J2405; J2543; J2704; J3010; J3475; J7030; J7040; J7050; P9016; P9017; P9047; Q5106